=== PATIENT | female | born 1955 | race Caucasian/White ===

== ENCOUNTER 2016-09-15 10:18 | Inpatient (IN) | payer OTHER ==
[2016-09-11 16:30] VITALS: BMI 56.8
--- NOTE | 2016-09-15 10:01 | P.GSHP ---
History of Present Illness H&P Date: 09/15/16 Chief Complaint: Thyroid mass CHIEF COMPLAINT: Thyroid mass, left. HISTORY OF PRESENT ILLNESS: The patient is a 61-year-old female presents with history of left thyroid mass over 3 cm. This has been observed by her human resources consultant for several years however now she presents with problems with swallowing as well as troubles breathing. She presents for surgical intervention. PAST MEDICAL HISTORY: Please see list PAST SURGICAL HISTORY: Please see list MEDICATIONS: Please see list ALLERGIES: Denies. SOCIAL HISTORY: No illicit drug use or recent tobacco use FAMILY HISTORY: Pertinent for gallbladder disease REVIEW OF ORGAN SYSTEMS: CONSTITUTIONAL: No reports of fevers or chills. HEENT: Denies any troubles with the vision or hearing. ENDOCRINE: Has thyroid nodules. Has diabetes. RESPIRATORY: No recent pneumonias. CARDIOVASCULAR: Denies chest pain or palpitations GI: No blood in stools or constipation. MUSCULOSKELETAL: Has occasional joint pain including back pain. NEURO: No seizure disorders or headaches. No recent stroke. PSYCH: No depression or suicidal ideation. HEMATOLOGIC: No personal or family history of DVTs or pulmonary emboli. PHYSICAL EXAM: VITAL SIGNS: Afebrile vital signs stable GENERAL: Well-developed pleasant in no acute distress. HEENT: No scleral icterus. Extraocular movements grossly intact. Moist buccal mucosa. NECK: Supple with nodularity along left neck. CHEST: Unlabored respirations. Equal bilateral excursions. CARDIOVASCULAR: Regular rate regular rhythm rhythm. Distal 2+ pulses. ABDOMEN: Soft, nondistended. Tender along the epigastrium and right upper quadrant. MUSCULOSKELETAL: No clubbing, cyanosis, or edema. NEURO: Cranial nerves II to XII within normal limits. No focal or lateralizing signs. PSYCH: Alert and oriented to person, place and time. STUDIES: CT of the neck confirms a left thyroid mass between 3.5-4 cm. ASSESSMENT: 1. Thyroid mass 3 cm PLAN: 1. Recommend proceeding with a left thyroid lobectomy with possible total thyroidectomy for high risk for cancer. 2. Inpatient hospitalization and advise with multiple comorbidities. 3. DVT prophylaxis. 4. Antibiotic prophylaxis. Past Medical History Past Medical History: Diabetes Mellitus, GERD/Reflux, Hyperlipidemia, Hypertension, Thyroid Disorder Additional Past Medical History / Comment(s): DYSPHAGIA, THYROID NODULE History of Any Multi-Drug Resistant Organisms: None Reported Past Surgical History: Adenoidectomy, Cholecystectomy, Tonsillectomy, Tubal Ligation Additional Past Surgical History / Comment(s): COLONOSCOPY/EGD, RT KIDNEY REMOVED, BREAST BX,. D & C Past Anesthesia/Blood Transfusion Reactions: Motion Sickness, Postoperative Nausea & Vomiting (PONV) Smoking Status: Former smoker - Past Family History Father Family Medical History: Cancer Additional Family Medical History / Comment(s): LUNG Mother Family Medical History: Cancer Additional Family Medical History / Comment(s): BREAST Sister(s) Family Medical History: Cancer Additional Family Medical History / Comment(s): 2 SISTER HAD BREAST CANCER Medications and Allergies Home Medications Medication Instructions Recorded Confirmed Type Aspirin EC [Ecotrin Low Dose] 81 mg PO DAILY 03/10/16 09/11/16 History Atorvastatin [Lipitor] 80 mg PO DAILY 03/10/16 09/11/16 History Cetirizine HCl [Zyrtec] 10 mg PO DAILY 03/10/16 09/11/16 History INSULIN LISPRO (HumaLOG) [humaLOG] 15 unit INJ TID-W/MEALS 03/10/16 09/11/16 History Insulin Glargine [Lantus] 56 unit INJ HS 03/10/16 09/11/16 History Irbesartan/Hydrochlorothiazide 1 each PO DAILY 03/10/16 09/11/16 History [Avalide 300-12.5 mg Tablet] Liraglutide [Victoza 2-Nicola] 1.8 mg SQ DAILY 03/10/16 09/11/16 History Metoprolol Tartrate [Lopressor] 50 mg PO BID 03/10/16 09/11/16 History Omeprazole [PriLOSEC] 20 mg PO AC-BID 03/10/16 09/11/16 History Phentermine/Topiramate [Qsymia 7.5 1 day PO DAILY 03/10/16 09/11/16 History mg-46 mg Capsule] amLODIPine [Norvasc] 10 mg PO QAM 03/10/16 09/11/16 History buPROPion HCL [Wellbutrin XL] 300 mg PO DAILY 03/10/16 09/11/16 History Albuterol Nebulized [Ventolin 2.5 mg INHALATION Q4H PRN 09/11/16 09/11/16 History Nebulized] Fluticasone Nasal [place] [Flonase 2 spr EA NOSTRIL DAILY PRN 09/11/16 09/11/16 History Nasal [place]] Meclizine [Antivert] 25 mg PO DAILY PRN 09/11/16 09/11/16 History Allergies Allergy/AdvReac Type Severity Reaction Status Date / Time prednisone Allergy Rash/Hives Verified 09/11/16 16:23
[~2016-09-15 10:18] MED LIST: ACETAMINOPHEN IV (For NPO) 1,000 MG in EMPTY BAG 1 BAG IVPB ONE; DEXAMETHASONE SOD PHOSPHATE 10 MG/ML 1 ML VIAL IV ONE; HEPARIN SODIUM,PORCINE 5,000 UNIT/ML 1 ML VIAL SQ ONE; HYDROmorphone 1 MG/ML 1 ML SYRINGE IVP PRN; LACTATED RINGERS 1,000 ML IV SCH; LIDOCAINE 1% 20 ML VIAL (10MG/ML) FOR IV START INTRADERMA PRN; ONDANSETRON 4 MG/2 ML VIAL IVP ONE; Pre Op ABX Message 1 EACH MISC MISCELLANE ONE; SCOPOLAMINE 1.5MG/72HR PATCH TRANSDERM ONE; ceFAZolin 2 GM in SODIUM CHLORIDE 0.9% 100 ML IVPB ONE
[2016-09-15 11:18] LABS: Glucose,Whole Blood 144 mg/dL (75-99)
[2016-09-15] MEDS ORDERED: BUPIVACAIN-EPI 0.25%-1:200,000 30 ML VIAL SQ ONE ×2 (11:55→16:52)
[2016-09-15] MEDS ORDERED: ONDANSETRON 4 MG/2 ML VIAL ONE (11:56)
[2016-09-15] MEDS ORDERED: PROPOFOL 10 MG/ML 20 ML VIAL IV ONE (11:56)
[2016-09-15] MEDS ORDERED: SUCCINYLCHOLINE CHLORIDE VIAL 200 MG/10 ML VIAL IV ONE (11:56)
[2016-09-15] MEDS ORDERED: LIDOCAINE 1% INJ 10MG/ML (20 ML MDV) ONE (11:56)
[2016-09-15] MEDS ORDERED: HYDROmorphone (PF) 1 MG/ML ONE (11:56)
[2016-09-15] MEDS ORDERED: MIDAZOLAM 2 MG/2 ML VIAL ONE (11:56)
[2016-09-15] MEDS ORDERED: ePHEDrine 50 MG/ML 1 ML AMP ONE (11:56)
[2016-09-15] MEDS ORDERED: fentaNYL (PF) 50 MCG/ML 2 ML AMP ONE (11:56)
[2016-09-15] MEDS ORDERED: PHENYLEPHRINE-0.9% NACL SYG 1 MG/10 ML SYRINGE ONE (11:56)
[2016-09-15] MEDS ORDERED: LACTATED RINGERS 1,000 ML IV ONE ×2 (16:10)
[2016-09-15 16:17] LABS: Glucose,Whole Blood 167 mg/dL (75-99)
[2016-09-15] MEDS ORDERED: ONDANSETRON 4 MG/2 ML VIAL IVP PRN (17:14)
[2016-09-15] MEDS ORDERED: traMADol 50 MG TAB PO PRN (17:14)
[2016-09-15] MEDS ORDERED: NALOXONE 0.4 MG/ML 1 ML VIAL IV PRN (17:14)
[2016-09-15] MEDS ORDERED: MECLIZINE 25 MG TAB PO PRN (17:16)
[2016-09-15] MEDS ORDERED: FLUTICASONE 50MCG/SPRAY NASAL 16GM EA NOSTRIL PRN (17:16)
--- NOTE | 2016-09-15 17:21 | P.OP ---
Date of Procedure: 09/15/16 Preoperative Diagnosis: Left thyroid nodule, 4 cm; dysphagia secondary to thyroid nodule, dyspnea secondary to thyroid nodule Postoperative Diagnosis: Same Procedure(s) Performed: Total thyroidectomy without neck dissection Implants: Anesthesia: GETA, local (30) Surgeon: Qian Murray Technical Data Analyst #1: Karen Francis Estimated Blood Loss (ml): 100 Pathology: other (Left thyroid gland, isthmus, right thyroid gland) Condition: stable Disposition: floor Indications for Procedure: Operative Findings: No palpable adenopathy along the bilateral neck, large 3-1/2-4 cm inferior lobe thyroid nodule palpated, severe scarring identified along the right thyroid gland, neurostimulator used throughout the case confirming identification of recurrent laryngeal nerve along both sides was free from harm during the procedure. Parathyroid glands identified and spared during procedure. Neck incision of 9 cm secondary to short and very thick neck with limited mobility. Complex of case increase secondary to patient's BMI over 50+. Description of Procedure:
[2016-09-15 17:36] LABS: Glucose,Whole Blood 206 mg/dL (75-99)
[2016-09-15] MEDS ORDERED: RACEPINEPHRINE 2.25% NEB 0.5 ML NEBU INHALATION ONE (17:59)
[2016-09-15] MEDS ORDERED: INSULIN LISPRO (humaLOG) 300 UNIT/3 ML VIAL SQ ONE (17:59)
[2016-09-15] MEDS ORDERED: ACETAMINOPHEN IV (For NPO) 1,000 MG in EMPTY BAG 1 BAG IVPB ONE (18:00)
[2016-09-15] MEDS: SODIUM CHLORIDE 0.9% 1,000 ML IV SCH (18:49)
[2016-09-15 18:56] LABS: Calcium 8.8 mg/dL (8.4-10.2); Potassium 4.6 mmol/L (3.5-5.1)
[2016-09-15] MEDS: INSULIN LISPRO (humaLOG) 300 UNIT/3 ML VIAL SQ SCH ×2 (19:56→22:52)
[2016-09-15] MEDS: PANTOPRAZOLE 40 MG TABLET PO SCH (19:57)
[2016-09-15] MEDS: ceFAZolin 2 GM in SODIUM CHLORIDE 0.9% 100 ML IVPB SCH (20:28)
[2016-09-15] MEDS: METOPROLOL TARTRATE 50 MG TAB PO SCH (20:30)
[2016-09-15] MEDS: HEPARIN SODIUM,PORCINE 5,000 UNIT/ML 1 ML VIAL SQ SCH (20:30)
[2016-09-15 21:11] LABS: Hemoglobin A1C 7.9 % (4.2-6.1)
[2016-09-15] MEDS: HYDROcodone/APAP 5-325MG 1 EACH TAB PO PRN (22:46)
[2016-09-15 22:53] LABS: Glucose,Whole Blood 193 mg/dL (75-99)
[2016-09-16] MEDS: ceFAZolin 2 GM in SODIUM CHLORIDE 0.9% 100 ML IVPB SCH (03:29)
[2016-09-16] MEDS: SODIUM CHLORIDE 0.9% 1,000 ML IV SCH ×3 (03:31→23:18)
[2016-09-16 06:22] LABS: Glucose,Whole Blood 158 mg/dL (75-99)
[2016-09-16] MEDS: PANTOPRAZOLE 40 MG TABLET PO SCH ×2 (06:23→17:49)
[2016-09-16] MEDS: INSULIN LISPRO (humaLOG) 300 UNIT/3 ML VIAL SQ SCH ×4 (06:24→23:10)
[2016-09-16 07:04] LABS: Anion Gap 10 mmol/L; Blood Urea Nitrogen 21 mg/dL (7-17); Calcium 7.8 mg/dL (8.4-10.2); Carbon Dioxide 24 mmol/L (22-30); Chloride 105 mmol/L (98-107); Glucose 173 mg/dL (74-99); Non-African American GFR(MDRD) 53 (>60 ml/min/1.73 sqM); Potassium 4.6 mmol/L (3.5-5.1); Sodium 139 mmol/L (137-145)
--- NOTE | 2016-09-16 08:00 | P.PN ---
Progress Note - Text Patient seen and evaluated. She is comfortable. She denies any moderate neck pain. Serosanguineous drainage noted along dressing. Patient was asked to recite vowels A, E, O, U without any voice hoarseness identified. Calcium levels including parathyroid and thyroid levels being obtained. Recommend inpatient hospitalization.
[2016-09-16] MEDS: CALCIUM CARB-VIT D 500MG-200UN 1 EACH TAB PO SCH ×2 (08:12→17:46)
[2016-09-16] MEDS: buPROPion XL 300 MG TAB.ER.24H PO SCH (08:57)
[2016-09-16] MEDS: ASPIRIN 81 MG CHEW PO SCH (08:57)
[2016-09-16] MEDS: amLODIPine 10 MG TAB PO SCH (08:57)
[2016-09-16] MEDS: LORATADINE 10 MG TAB PO SCH (08:58)
[2016-09-16] MEDS: HEPARIN SODIUM,PORCINE 5,000 UNIT/ML 1 ML VIAL SQ SCH ×2 (08:58→20:41)
[2016-09-16] MEDS: HYDROCHLOROTHIAZIDE 12.5 MG CAP PO SCH (08:58)
[2016-09-16] MEDS: LOSARTAN 50 MG TAB PO SCH (08:59)
[2016-09-16] MEDS: METOPROLOL TARTRATE 50 MG TAB PO SCH ×2 (09:00→20:41)
[2016-09-16 11:49] LABS: Glucose,Whole Blood 186 mg/dL (75-99)
[2016-09-16 12:07] LABS: Ionized Calcium 4.5 mg/dL (4.5-5.3)
[2016-09-16 12:16] LABS: Calcium 7.8 mg/dL (8.4-10.2); Magnesium 1.9 mg/dL (1.6-2.3); Phosphorous 4.1 mg/dL (2.5-4.5)
[2016-09-16] MEDS: MAGNESIUM SULFATE-D5W PMX 1 GM in DEXTROSE/WATER 1 100ML.BAG IVPB SCH ×2 (14:18→15:30)
--- NOTE | 2016-09-16 15:23 | P.PN ---
Subjective Principal diagnosis: Thyroid mass Patient is a 61-year-old female who underwent a total thyroidectomy secondary to her growing 3.5 cm to 4 cm mass along the left thyroid gland. She also reported dyspneic symptoms including dysphagia and trouble swallowing from the thyroid mass. She underwent a total thyroidectomy and has normal caliber voice. She's tolerating diet. She is using her septic parameters which is causing additional coughing as result she has more bleeding from her neck. Otherwise she is comfortable. No reports of numbness around the lips or fingertips. Objective - Vital Signs Vital signs: Vital Signs Temp 97.6 F 09/16/16 07:50 Pulse 68 09/16/16 08:10 Resp 16 09/16/16 07:50 BP 130/78 09/16/16 07:50 Pulse Ox 95 09/16/16 07:50 Intake & Output 09/15/16 09/16/16 09/16/16 18:59 06:59 18:59 Intake Total 3200 480 Output Total 700 2200 875 Balance 2500 -2200 -395 Weight 150.139 kg Intake: IV 3200 Oral 480 Output: Urine 600 2200 875 Uretheral ([place]) 1400 Stool 0 Estimated Blood Loss 100 Other: Voiding Method Indwelling Catheter Toilet # Voids 1 # Bowel Movements 0 - Exam GENERAL: Well developed and in no acute distress. Pleasant. HEENT: No sclera icterus. Extraocular movements grossly intact. Moist buccal mucosa. Head is atraumatic, normocephalic. Hears conversational speech. No nasal drainage. NECK: Dressing along the neck was soaked with serosanguineous drainage. No cellulitis. [place] drain intact. Dressing was changed at bedside. CHEST: Non-labored respirations and equal bilateral excursions. CARDIOVASCULAR: Regular rate and rhythm. Palpable 2+ radial pulses. ABDOMEN: Soft, nontender. Nondistended. MUSCULOSKELETAL: No clubbing, cyanosis or edema. NEUROLOGIC: No focal or lateralizing signs. PSYCH: Appropriate affect. Alert and oriented to person, place and time. - Labs CBC & Chem 7: 09/16/16 06:19 Labs: Abnormal Lab Results - Last 24 Hours (Table) 09/15/16 09/15/16 09/15/16 Range/Units 16:15 17:30 18:25 Carbon Dioxide (22-30) mmol/L BUN (7-17) mg/dL Creatinine (0.52-1.04) mg/dL Glucose (74-99) mg/dL POC Glucose (mg/dL) 167 H 206 H (75-99) mg/dL Hemoglobin A1c 7.9 H (4.2-6.1) % Calcium (8.4-10.2) mg/dL Albumin (3.5-5.0) g/dL 09/15/16 09/15/16 09/16/16 Range/Units 18:25 22:51 06:19 Carbon Dioxide 21 L (22-30) mmol/L BUN 23 H 21 H (7-17) mg/dL Creatinine 1.13 H 1.06 H (0.52-1.04) mg/dL Glucose 225 H 173 H (74-99) mg/dL POC Glucose (mg/dL) 193 H (75-99) mg/dL Hemoglobin A1c (4.2-6.1) % Calcium 7.8 L (8.4-10.2) mg/dL Albumin (3.5-5.0) g/dL 09/16/16 09/16/16 09/16/16 Range/Units 06:21 11:45 11:47 Carbon Dioxide (22-30) mmol/L BUN (7-17) mg/dL Creatinine (0.52-1.04) mg/dL Glucose (74-99) mg/dL POC Glucose (mg/dL) 158 H 186 H (75-99) mg/dL Hemoglobin A1c (4.2-6.1) % Calcium 7.8 L (8.4-10.2) mg/dL Albumin 3.1 L (3.5-5.0) g/dL Assessment and Plan (1) Thyroid mass of unclear etiology Status: Acute (2) Morbid obesity with BMI of 50.0-59.9, adult Status: Acute (3) Sleep apnea Status: Acute (4) Chronic kidney disease, stage II (mild) Status: Acute (5) Diabetic nephropathy Status: Acute (6) Diabetes type 2, controlled Status: Acute (7) Hypertensive heart disease Status: Acute (8) History of pneumonia Status: Acute Plan: 1. Her neck dressing was changed with moderate sanguinous drainage following moderate coughing earlier today. Recommend continued hospitalization as to ensure complete hemostasis and hemoglobin stability. 2. She has pre-existing pneumonia for which she was hospitalized in and out for 3 months with the last 4 months. Continue with incentive spirometry. 3. Ionized calcium consistent with no evidence of hypocalcemia. Parathyroid hormone level also sent out and pending. 4. Recommend treatment for low magnesium as low magnesium potentiates hypocalcemia. 5. She has been started on calcium with vitamin D at least 2-3 times daily. 6. Thyroid levels within normal limits however recommend consultation and follow-up outpatient with construction services technician. Her sees Dr. Luna construction services technician for which would be appropriate. 7. She has history of morbid obesity with BMI of over 50. Prior to her thyroidectomy, she was being evaluated for the bariatric program which may be reinvestigated upon complete recovery of her recent surgery.
[2016-09-16] MEDS: ALBUTEROL NEBULIZED 2.5 MG/3 ML INHALATION PRN (16:55)
[2016-09-16 17:46] LABS: Glucose,Whole Blood 135 mg/dL (75-99)
[2016-09-16] MEDS: HYDROcodone/APAP 5-325MG 1 EACH TAB PO PRN ×2 (18:25→23:12)
[2016-09-16 23:10] LABS: Glucose,Whole Blood 175 mg/dL (75-99)
[2016-09-17 01:36] LABS: Glucose,Whole Blood 142 mg/dL (75-99)
[2016-09-17] MEDS: HYDROcodone/APAP 5-325MG 1 EACH TAB PO PRN ×3 (02:55→14:42)
[2016-09-17] MEDS ORDERED: CALCIUM GLUCONATE 1,000 MG in SODIUM CHLORIDE 0.9% 100 ML IVPB ONE ×2 (03:00→11:00)
[2016-09-17 06:44] LABS: Glucose,Whole Blood 120 mg/dL (75-99)
[2016-09-17] MEDS: INSULIN LISPRO (humaLOG) 300 UNIT/3 ML VIAL SQ SCH ×2 (06:44→12:21)
[2016-09-17] MEDS: PANTOPRAZOLE 40 MG TABLET PO SCH (06:45)
[2016-09-17] MEDS: CALCIUM CARB-VIT D 500MG-200UN 1 EACH TAB PO SCH ×2 (07:49→16:02)
[2016-09-17 07:51] VITALS: TEMP 97.7
[2016-09-17 08:13] LABS: Ionized Calcium 4.2 mg/dL (4.5-5.3)
[2016-09-17 08:16] LABS: Calcium 7.6 mg/dL (8.4-10.2); Magnesium 1.8 mg/dL (1.6-2.3)
[2016-09-17] MEDS: ALBUTEROL NEBULIZED 2.5 MG/3 ML INHALATION PRN ×2 (08:59→15:43)
[2016-09-17] MEDS: HEPARIN SODIUM,PORCINE 5,000 UNIT/ML 1 ML VIAL SQ SCH (09:09)
[2016-09-17] MEDS: ASPIRIN 81 MG CHEW PO SCH (09:09)
[2016-09-17] MEDS: buPROPion XL 300 MG TAB.ER.24H PO SCH (09:09)
[2016-09-17] MEDS: amLODIPine 10 MG TAB PO SCH (09:09)
[2016-09-17] MEDS: LORATADINE 10 MG TAB PO SCH (09:10)
[2016-09-17] MEDS: LOSARTAN 50 MG TAB PO SCH (09:10)
[2016-09-17] MEDS: HYDROCHLOROTHIAZIDE 12.5 MG CAP PO SCH (09:10)
[2016-09-17] MEDS: METOPROLOL TARTRATE 50 MG TAB PO SCH (09:10)
[2016-09-17] MEDS ORDERED: CALCITRIOL 0.25 MCG CAP PO SCH (10:15)
[2016-09-17] MEDS: MAGNESIUM SULFATE-D5W PMX 1 GM in DEXTROSE/WATER 1 100ML.BAG IVPB SCH ×3 (10:44→13:09)
[2016-09-17 12:06] VITALS: BP 129/78; RESP 18
[2016-09-17 12:20] LABS: Glucose,Whole Blood 170 mg/dL (75-99)
[2016-09-17 15:20] LABS: Calcium 7.6 mg/dL (8.4-10.2); Magnesium 2.4 mg/dL (1.6-2.3)
[2016-09-17 15:53] VITALS: PULSE 68
--- NOTE | 2016-09-17 20:48 | P.PN ---
Subjective Principal diagnosis: Thyroid mass Patient is a 61-year-old female who underwent a total thyroidectomy secondary to her growing 3.5 cm to 4 cm mass along the left thyroid gland. She reported dyspnea including dysphagia secondary to a thyroid nodule hence thyroidectomy. Postoperatively, she's been tolerating diet. She reports overnight developing acute numbness around the lips. She was treated with IV calcium. This morning , she reports improvement of her symptoms. No reports of changing caliber of voice. She denied any carpopedal spasms. Objective - Vital Signs Vital signs: Vital Signs Temp 97.7 F 09/17/16 07:51 Pulse 68 09/17/16 09:10 Resp 16 09/17/16 07:51 BP 119/61 09/17/16 07:51 Pulse Ox 98 09/17/16 07:57 Intake & Output 09/16/16 09/17/16 09/17/16 18:59 06:59 18:59 Intake Total 480 Output Total 875 Balance -395 Weight 150.139 kg Intake: Oral 480 Output: Urine 875 Other: Voiding Method Toilet Toilet # Voids 1 1 1 - Exam GENERAL: Well developed and in no acute distress. Pleasant. HEENT: No sclera icterus. Extraocular movements grossly intact. Moist buccal mucosa. Head is atraumatic, normocephalic. Hears conversational speech. No nasal drainage. NECK: Dressing along the neck minimal serosanguineous drainage. No cellulitis. [place] drain was removed. Dressing was changed at bedside. No hoarseness. CHEST: Non-labored respirations and equal bilateral excursions. CARDIOVASCULAR: Regular rate and rhythm. Palpable 2+ radial pulses. ABDOMEN: Soft, nontender. Nondistended. MUSCULOSKELETAL: No clubbing, cyanosis or edema. NEUROLOGIC: No focal or lateralizing signs. PSYCH: Appropriate affect. Alert and oriented to person, place and time. - Labs CBC & Chem 7: 09/16/16 06:19 Labs: Abnormal Lab Results - Last 24 Hours (Table) 09/16/16 09/16/16 09/16/16 Range/Units 11:45 11:47 17:38 POC Glucose (mg/dL) 186 H 135 H (75-99) mg/dL Calcium 7.8 L (8.4-10.2) mg/dL Ionized Calcium Cathy (4.5-5.3) mg/dL Albumin 3.1 L (3.5-5.0) g/dL 09/16/16 09/17/16 09/17/16 Range/Units 23:08 01:34 02:02 POC Glucose (mg/dL) 175 H 142 H (75-99) mg/dL Calcium 7.7 L (8.4-10.2) mg/dL Ionized Calcium Cathy (4.5-5.3) mg/dL Albumin (3.5-5.0) g/dL 09/17/16 09/17/16 Range/Units 06:43 07:31 POC Glucose (mg/dL) 120 H (75-99) mg/dL Calcium 7.6 L (8.4-10.2) mg/dL Ionized Calcium Cathy 4.2 L (4.5-5.3) mg/dL Albumin (3.5-5.0) g/dL Assessment and Plan (1) Thyroid mass of unclear etiology Status: Acute (2) Morbid obesity with BMI of 50.0-59.9, adult Status: Acute (3) Sleep apnea Status: Acute (4) Chronic kidney disease, stage II (mild) Status: Acute (5) Diabetic nephropathy Status: Acute (6) Diabetes type 2, controlled Status: Acute (7) Hypertensive heart disease Status: Acute (8) History of pneumonia Status: Acute (9) Hypocalcemia Status: Acute (10) Hypomagnesemia Status: Acute Plan: 1. She has an expected outcome of hypocalcemia following thyroid surgery. Repeat calcium levels were stable. 2. She has been started on calcitriol. 3. Recommend correction of hypo-Magnesia which potentiates hypocalcemia. 4. [place] drain was discontinued at bedside with New dressing placed along the neck. 5. Risk factors of severe hypocalcemia including perioral numbness, carpopedal spasms were described as well as muscle soreness. She and her family were described treatment including immediate calcium supplement and notifying M.D. 6. Patient may be discharged home with immediate follow-up in the office in 2- 3 days.
--- NOTE | 2016-09-17 20:52 | P.DS ---
Providers Date of admission: 09/15/16 17:07 Expected date of discharge: 09/17/16 Attending physician: Qian Murray Primary care physician: Stated None - Discharge Diagnosis(es) (1) Thyroid mass of unclear etiology Status: Acute (2) Morbid obesity with BMI of 50.0-59.9, adult Status: Acute (3) Sleep apnea Status: Acute (4) Chronic kidney disease, stage II (mild) Status: Acute (5) Diabetic nephropathy Status: Acute (6) Diabetes type 2, controlled Status: Acute (7) Hypertensive heart disease Status: Acute (8) History of pneumonia Status: Acute (9) Hypocalcemia Status: Acute (10) Hypomagnesemia Status: Acute Hospital Course: The patient is a 61-year-old female who presented for thyroidectomy following an enlarged left thyroid lobe almost 4 cm in size. She reported developing dyspnea including dysphagia secondary to the size of the mass. Postoperatively , her voice caliber was intact. Her calcium levels were followed as an expected outcome following total thyroidectomy includes hypocalcemia. She was treated accordingly for low magnesium and low calcium levels. She was started on calcium supplement including vitamin D supplementation. Prior to discharge, she was stable. Discharge instructions including symptoms of hypocalcemia were described in detail. The [place] drain was discontinued. Patient will follow-up in the office within 2-3 days. Procedures: Total thyroidectomy with neuro monitor stimulator Patient Condition at Discharge: Stable Plan - Discharge Summary New Discharge Prescriptions: New Calcium Carbonate/Vitamin D3 [Calcium 500-Vit D3 600 Tablet] 1 each PO TID # 90 tablet Hydrocodone/Acetaminophen [Teague 5-325] 1 - 2 each PO Q6HR PRN #10 tab PRN Reason: Pain Levothyroxine Sodium [Synthroid] 100 mcg PO DAILY #30 tab Calcitriol [Rocaltrol] 0.25 mcg PO DAILY #30 cap Calcium Carb-Vit D 500Mg-200Un [Oscal 500+D] 2 each PO BID-W/MEALS tab Continue Liraglutide [Victoza 2-Nicola] 1.8 mg SQ DAILY Omeprazole [PriLOSEC] 20 mg PO AC-BID Metoprolol Tartrate [Lopressor] 50 mg PO BID Cetirizine HCl [Zyrtec] 10 mg PO DAILY buPROPion HCL [Wellbutrin XL] 300 mg PO DAILY amLODIPine [Norvasc] 10 mg PO QAM Atorvastatin [Lipitor] 80 mg PO DAILY Phentermine/Topiramate [Qsymia 7.5 mg-46 mg Capsule] 1 cap PO DAILY Irbesartan/Hydrochlorothiazide [Avalide 300-12.5 mg Tablet] 1 tab PO DAILY Insulin Glargine [Lantus] 56 unit SQ HS INSULIN LISPRO (HumaLOG) [humaLOG] 15 unit SQ TID-W/MEALS Aspirin EC [Ecotrin Low Dose] 81 mg PO DAILY Fluticasone Nasal [place] [Flonase Nasal [place]] 2 spr EA NOSTRIL DAILY PRN PRN Reason: Congestion Albuterol Nebulized [Ventolin Nebulized] 2.5 mg INHALATION RT-Q4H PRN PRN Reason: Shortness Of Breath Meclizine [Antivert] 25 mg PO DAILY PRN PRN Reason: Vertigo Discharge Medication List Aspirin EC [Ecotrin Low Dose] 81 mg PO DAILY 03/10/16 [History] Atorvastatin [Lipitor] 80 mg PO DAILY 03/10/16 [History] Cetirizine HCl [Zyrtec] 10 mg PO DAILY 03/10/16 [History] INSULIN LISPRO (HumaLOG) [humaLOG] 15 unit SQ TID-W/MEALS 03/10/16 [History] Insulin Glargine [Lantus] 56 unit SQ HS 03/10/16 [History] Irbesartan/Hydrochlorothiazide [Avalide 300-12.5 mg Tablet] 1 tab PO DAILY 03/10 [History] Liraglutide [Victoza 2-Nicola] 1.8 mg SQ DAILY 03/10/16 [History] Metoprolol Tartrate [Lopressor] 50 mg PO BID 03/10/16 [History] Omeprazole [PriLOSEC] 20 mg PO AC-BID 03/10/16 [History] Phentermine/Topiramate [Qsymia 7.5 mg-46 mg Capsule] 1 cap PO DAILY 03/10/16 [ History] amLODIPine [Norvasc] 10 mg PO QAM 03/10/16 [History] buPROPion HCL [Wellbutrin XL] 300 mg PO DAILY 03/10/16 [History] Albuterol Nebulized [Ventolin Nebulized] 2.5 mg INHALATION RT-Q4H PRN 09/11/16 [ History] Fluticasone Nasal [place] [Flonase Nasal [place]] 2 spr EA NOSTRIL DAILY PRN [History] Meclizine [Antivert] 25 mg PO DAILY PRN 09/11/16 [History] Calcium Carbonate/Vitamin D3 [Calcium 500-Vit D3 600 Tablet] 1 each PO TID #90 tablet 09/16/16 [Rx] Hydrocodone/Acetaminophen [[place] 5-325] 1 - 2 each PO Q6HR PRN #10 tab 09/16/16 [Rx] Levothyroxine Sodium [Synthroid] 100 mcg PO DAILY #30 tab 09/16/16 [Rx] Calcitriol [Rocaltrol] 0.25 mcg PO DAILY #30 cap 09/17/16 [Rx] Calcium Carb-Vit D 500Mg-200Un [Oscal 500+D] 2 each PO BID-W/MEALS tab [Rx] Follow up Appointment(s)/Referral(s): Qian Murray MD [STAFF PHYSICIAN] - 09/19/16 (Call to confirm time.) Azucena Luna MD [STAFF PHYSICIAN] - 1 Week (History of thyroidectomy for left thyroid mass between 3.6 cm to 4 cm. Call to make an appointment with Dr Luna for one week.) Patient Instructions/Handouts: Calcium/Vitamin D Supplement (By mouth), Total Thyroidectomy (DC), Hypocalcemia (DC) Activity/Diet/Wound Care/Special Instructions: Diet as tolerated. Please keep dressing on until discontinued by surgeon in the office. No heavy lifting, no driving, no bending over. Call Dr Murray if you develop a fever, chills, difficulty in breathing, numbness or tingling or twitching of face or hands. Take you calcium supplements as ordered. Return on Monday, September 19, [address] Murray for your follow up appointment. Monitor blood glucose levels and administer your insulin as prior to surgery. Discharge Disposition: HOME SELF-CARE
--- NOTE | 2016-10-02 12:52 | P.OP ---
Date of Procedure: 09/15/16 Preoperative Diagnosis: Postoperative Diagnosis: Procedure(s) Performed: Implants: Indications for Procedure: Operative Findings: Description of Procedure: Date of Procedure: 09/15/16 SURGEON: DION GARCIA MD RAMPMAN: Dr. Karen Francis PREOPERATIVE DIAGNOSES: 1. Left thyroid nodule, 4 cm. 2. History of dysphagia secondary to thyroid compression. 3. Dyspnea from thyroid compression. 4. Morbid obesity due to excess calories. 5. Body mass index of 56.8. 6. Diabetes type 2, insulin-dependent. 7. Asthma. 8. Hypertensive heart disease with cardiomyopathy. 9. Renal insufficiency. 10. Hyperlipidemia. 11. Personal history of right nephrectomy. 12. Gastroesophageal reflux disease. 13. Obstructive sleep apnea. 14. Vertigo. 15. History of depression. 16. Euthyroid state. POSTOPERATIVE DIAGNOSES: 1. Left thyroid nodule, 4 cm. 2. History of dysphagia secondary to thyroid compression. 3. Dyspnea from thyroid compression. 4. Morbid obesity due to excess calories. 5. Body mass index of 56.8. 6. Diabetes type 2, insulin-dependent. 7. Asthma. 8. Hypertensive heart disease with cardiomyopathy. 9. Renal insufficiency. 10. Hyperlipidemia. 11. Personal history of right nephrectomy. 12. Gastroesophageal reflux disease. 13. Obstructive sleep apnea. 14. Vertigo. 15. History of depression. 16. Euthyroid state. OPERATION: Total thyroidectomy with isthmusectomy without neck dissection ANESTHESIA: General with local anesthetic. ESTIMATED BLOOD LOSS: 100 mL. SPECIMENS REMOVED: Left thyroid gland, isthmus, right thyroid gland COMPLICATIONS: None. SPECIAL EQUIPMENT: Neuromuscular stimulator for identification of recurrent laryngeal nerve. OPERATIVE FINDINGS: 1. No palpable adenopathy along the bilateral neck. 2. Large 3.5 to 4 cm inferior lobe thyroid nodule palpated. 3. Severe scarring identified along the right thyroid gland. 4. Neurostimulator used throughout the case confirming identification of recurrent laryngeal nerve along both sides and free from harm during the procedure. 5. Parathyroid glands identified and spared during procedure from inferior pole thyroid gland. 6. Neck incision of 9 cm secondary to short and very thick neck with limited mobility. 7. Complex of case increase secondary to patient's BMI over 50+. INDICATIONS: The patient is a 61-year-old female who reports several year history of thyroid nodule. She reports that her thyroid gland has grown in moderate size which is causing both dysphagia including dyspnea from thyroid compression. She had been followed closely by an nuclear fuels research engineer. Given her worsening symptoms, thyroid lobectomy versus total thyroidectomy was described. As risk for neoplasm was high, total thyroidectomy was selected. Benefits and risks, including bleeding, infection, need for further surgery, injury to the recurrent laryngeal nerves had been discussed at length. Informed consent was obtained. DESCRIPTION: Patient was brought into the operating room and initially placed in supine position. After general induction, she was repositioned in a beach chair position with the neck slightly hyperextended and stable. A shoulder roll was placed. Neuromuscular stimulator was placed along the patient's skin. The neck, chin, chest and bilateral shoulders were prepped and draped in standard sterile fashion. Prior to incision, a timeout protocol was confirmed with the surgical team regarding the patient's name including procedure to be performed. Preoperative medications was also dispensed. The patient had a moderate size large neck whereby the skin crease was identified approximately 2 fingerbreadths above the sternal notch in appearance. The skin was localized using anesthetic. Transverse incision was made using a #15 blade. The incision was deepened down through the platysma using a needlepoint electro- Bovie cautery. Flaps were raised along the infra-platysmal plane and was developed cephalad above the thyroid cartridge laterally to the sternocleidomastoid muscles and inferiorly to the sternal notch. (Dr. Francis had entered the case for assisting in dissection and resection for total thyroidectomy.) The left thyroid gland was of a moderate sized whereby the sternohyoid, sternothyroid and omohyoid muscles were identified. Initial attention was brought to the right side where moderate scarring was identified. A large median vein along the neck spared from harm. The strap muscles were retracted laterally. The right thyroid was exposed severely scarred. Next, the right thyroid gland was gently displaced toward the midline and the middle thyroid vein was identified and tied using 2-0 silk and divided. The lobe was then retracted inferiorly and medially to expose the superior thyroid artery and vein. The superior thyroid artery and vein was skeletonized and tied using 2-0 silk and divided onto the gland to avoid injury to the superior laryngeal nerve. The right lobe was then retracted medially and the recurrent laryngeal nerve was identified in the tracheoesophageal groove. Neuromuscular stimulator was used also confirm its location. Next, the gland was gently mobilized away from the nerve which had been protected during the dissection. The inferior thyroid artery and vein were then ligated with 2-0 silk and divided. A hand held LigaSure was used to divide accessory vessels. The posterior and inferior parathyroid glands were identified and dissected free from the thyroid gland. As the isthmus was also found, the isthmus was divided and the lobe was freed. The specimen was passed off. Throughout the neck, no palpable lymph nodes were found throughout the cervical chain. In a similar fashion, the left strap muscles were retracted laterally. The gland was reflected medially in an inferior approach to identify the superior pole. The middle thyroid vein was identified and divided using 2-0 silk. The superior thyroid artery and vein were also skeletonized and tied using 2-0 silk and divided onto the gland again to avoid injury to the recurrent laryngeal nerve. As the lobe was retracted medially the recurrent laryngeal nerve was also identified along the tracheoesophageal groove and confirmed using a neuromuscular stimulation. The thyroid gland was then removed from the trachea. Hemostasis had been checked with Fibrillar and hemostatic agents. A 1/4-inch [place] drain was sutured into the space using 2-0 nylon for the skin. The cervical fascia was reapproximated using 3-0 Vicryl in a running fashion. The platysma was also reapproximated using running 3-0 Vicryl stitches. The skin was closed using 4-0 Monocryl in a running subcuticular fashion. Dermabond was placed laterally as to avoid incorporating the [place] drain. Optifoam dressing was placed. At the end of the procedure, needle, sponge, and instrument count had been verified correct by the rn surgical pcu. Please note that prior to closure of the wound, the neck was carefully explored whereby no findings of pathological lymph nodes were found. The patient was taken to the postanesthesia care unit in stable condition. The patient upon awaking was able to phonate and speak without hoarseness of her voice and had maintained her airway.
== END 2016-09-17 16:35 | disposition home or self-care (01) | DRG 626 ==
LOC: OR 10:18 → 6PED 17:07
PROVIDERS: ADMIT Surgery Plastic and Reconstructive Surgery; ATTEND Surgery Plastic and Reconstructive Surgery
PROC: 0GTH0ZZ Resection of Right Thyroid Gland Lobe, Open Approach (ICD-10-PCS; principal; 2016-09-15 11:40)
PROC: 0GTG0ZZ Resection of Left Thyroid Gland Lobe, Open Approach (ICD-10-PCS; principal; 2016-09-15 11:40)
DX: E04.1 Nontoxic single thyroid nodule (principal); I42.9 Cardiomyopathy, unspecified; Z68.43 Body mass index [BMI] 50.0-59.9, adult; E11.21 Type 2 diabetes mellitus with diabetic nephropathy; I13.10 Hypertensive heart and chronic kidney disease without heart failure, with stage 1 through stage 4 chronic kidney disease, or unspecified chronic kidney disease; E83.42 Hypomagnesemia; E83.51 Hypocalcemia; E11.22 Type 2 diabetes mellitus with diabetic chronic kidney disease; E66.01 Morbid (severe) obesity due to excess calories; E78.5 Hyperlipidemia, unspecified; G47.33 Obstructive sleep apnea (adult) (pediatric); J45.909 Unspecified asthma, uncomplicated; K21.9 Gastro-esophageal reflux disease without esophagitis; N18.2 Chronic kidney disease, stage 2 (mild); Z79.4 Long term (current) use of insulin; Z79.899 Other long term (current) drug therapy; Z80.3 Family history of malignant neoplasm of breast; Z87.01 Personal history of pneumonia (recurrent); Z87.891 Personal history of nicotine dependence; Z90.5 Acquired absence of kidney
CPT/HCPCS: 80048; 82040; 82310; 82330; 82652; 83036; 83735; 83970; 84100; 84443; 88307; 94640

== ENCOUNTER 2016-09-18 16:32 | Emergency (ER) | payer OTHER ==
--- NOTE | 2016-09-18 17:34 | ED ---
General Adult HPI - General Source: patient, RN notes reviewed Mode of arrival: wheelchair Limitations: no limitations <Yanick Mobley - Last Filed: 09/18/16 19:04> <Stefano Burden - Last Filed: 09/18/16 19:11> - General Chief complaint: Recheck/Abnormal Lab/Rx Stated complaint: Tingling in lips and face Time Seen by Provider: 09/18/16 16:48 - History of Present Illness Initial comments: 61-year-old female presents emergency Department with chief complaint of numbness and tingling in her face generalize, arms and hands. Patient states that she had a thyroidectomy on Sunday by Dr. Murray. Patient states while in the hospital she exhibited similar symptoms that she has no states is told her was due to low calcium and magnesium. She had this replaced in the hospital and states that she felt that it resolved. Patient developed symptoms again around 2:30 this afternoon. She was instructed to come emergency department to have her levels checked by Dr. Galloway. Patient denies headache, focal weakness, blurred vision, nausea, vomiting. Patient states she does have a history anxiety though she does not feel anxious. Denies chest pain or shortness breath. Patient states she's been taking [id number] supplements for her calcium and magnesium. (Yanick Mobley) - Related Data Home Medications Medication Instructions Recorded Confirmed Aspirin EC [Ecotrin Low Dose] 81 mg PO DAILY 03/10/16 09/18/16 Atorvastatin [Lipitor] 80 mg PO DAILY 03/10/16 09/18/16 Cetirizine HCl [Zyrtec] 10 mg PO DAILY 03/10/16 09/18/16 INSULIN LISPRO (HumaLOG) [humaLOG] 15 unit SQ TID-W/MEALS 03/10/16 09/18/16 Insulin Glargine [Lantus] 56 unit SQ HS 03/10/16 09/18/16 Irbesartan/Hydrochlorothiazide 1 tab PO DAILY 03/10/16 09/18/16 [Avalide 300-12.5 mg Tablet] Liraglutide [Victoza 2-Nicola] 1.8 mg SQ DAILY 03/10/16 09/18/16 Metoprolol Tartrate [Lopressor] 50 mg PO BID 03/10/16 09/18/16 Omeprazole [PriLOSEC] 20 mg PO AC-BID 03/10/16 09/18/16 Phentermine/Topiramate [Qsymia 7.5 1 cap PO DAILY 03/10/16 09/18/16 mg-46 mg Capsule] amLODIPine [Norvasc] 10 mg PO QAM 03/10/16 09/18/16 buPROPion HCL [Wellbutrin XL] 300 mg PO DAILY 03/10/16 09/18/16 Albuterol Nebulized [Ventolin 2.5 mg INHALATION RT-Q4H PRN 09/11/16 09/18/16 Nebulized] Fluticasone Nasal [place] [Flonase 2 spr EA NOSTRIL DAILY PRN 09/11/16 09/18/16 Nasal [place]] Meclizine [Antivert] 25 mg PO DAILY PRN 09/11/16 09/18/16 Calcium Carb-Vit D 500Mg-200Un 2 tab PO BID-W/MEALS 09/18/16 09/18/16 [Oscal 500+D] Calcium Carbonate/Vitamin D3 1 tab PO TID 09/18/16 09/18/16 [Calcium 500-Vit D3 600 Tablet] Hydrocodone/Acetaminophen [[place] 1 - 2 tab PO Q6HR PRN 09/18/16 09/18/16 5-325] Previous Rx's Medication Instructions Recorded Levothyroxine Sodium [Synthroid] 100 mcg PO DAILY #30 tab 09/16/16 Calcitriol [Rocaltrol] 0.25 mcg PO DAILY #30 cap 09/17/16 Allergies Allergy/AdvReac Type Severity Reaction Status Date / Time prednisone Allergy Rash/Hives Verified 09/18/16 17:00 Review of Systems ROS Other: All systems not noted in ROS Statement are negative. <Yanick Mobley - Last Filed: 09/18/16 19:04> ROS Other: All systems not noted in ROS Statement are negative. <Stefano Burden - Last Filed: 09/18/16 19:11> ROS Statement: Those systems with pertinent positive or pertinent negative responses have been documented in the HPI. Past Medical History Past Medical History: Diabetes Mellitus, GERD/Reflux, Hyperlipidemia, Hypertension, Thyroid Disorder Additional Past Medical History / Comment(s): DYSPHAGIA, THYROID NODULE History of Any Multi-Drug Resistant Organisms: None Reported Past Surgical History: Adenoidectomy, Cholecystectomy, Tonsillectomy, Tubal Ligation Additional Past Surgical History / Comment(s): COLONOSCOPY/EGD, RT KIDNEY REMOVED, BREAST BX,. D & C, THYROIDECTOMY Past Anesthesia/Blood Transfusion Reactions: Motion Sickness, Postoperative Nausea & Vomiting (PONV) Past Psychological History: Depression Smoking Status: Former smoker Past Alcohol Use History: None Reported Past Drug Use History: None Reported - Past Family History Father Family Medical History: Cancer Additional Family Medical History / Comment(s): LUNG Mother Family Medical History: Cancer Additional Family Medical History / Comment(s): BREAST Sister(s) Family Medical History: Cancer Additional Family Medical History / Comment(s): 2 SISTER HAD BREAST CANCER <Yanick Mobley - Last Filed: 09/18/16 19:04> General Exam Limitations: no limitations General appearance: alert, in no apparent distress Head exam: Present: atraumatic, normocephalic, normal inspection Eye exam: Present: normal appearance, PERRL, EOMI. Absent: scleral icterus, conjunctival injection, periorbital swelling ENT exam: Present: normal exam, normal oropharynx, mucous membranes moist, TM's normal bilaterally, normal external ear exam Neck exam: Present: tenderness (Mild), full ROM. Absent: normal inspection ( There is a dressing over the anterior surface), meningismus, lymphadenopathy Respiratory exam: Present: normal lung sounds bilaterally. Absent: respiratory distress, wheezes, rales, rhonchi, stridor Cardiovascular Exam: Present: regular rate, normal rhythm, normal heart sounds. Absent: systolic murmur, diastolic murmur, rubs, gallop, clicks Neurological exam: Present: alert, oriented X3, CN II-XII intact, reflexes normal, other (NIH 0 GCS 15). Absent: motor sensory deficit Skin exam: Present: warm, dry, intact, normal color. Absent: rash <Yanick Mobley - Last Filed: 09/18/16 19:04> Course <Yanick Mobley - Last Filed: 09/18/16 19:04> <Stefano Burden - Last Filed: 09/18/16 19:11> Vital Signs 09/18/16 09/18/16 16:40 18:42 Temperature 98.2 F Pulse Rate 70 91 Respiratory 18 20 Rate Blood Pressure 140/73 124/85 O2 Sat by Pulse 93 L 98 Oximetry - Reevaluation(s) Reevaluation #1: 09/18/16 19:11 I did personally do a [id number]-nj-[id number] evaluation the patient did discuss findings with her. I also discussed the case with Dr. Dixon. Dr. Dixon will come to the emergency department to see the patient. (Stefano Burden) Medical Decision Making - Lab Data Result diagrams: 09/18/16 17:25 09/18/16 17:25 <Yanick Mobley - Last Filed: 09/18/16 19:04> - Lab Data Result diagrams: 09/18/16 17:25 09/18/16 17:25 <Stefano Burden - Last Filed: 09/18/16 19:11> - Medical Decision Making Dr burden discussed the case with Dr. Murray. She will be discharged after her IV bag and calcium. Patient will be evaluated by Dr. Murray in the emergency department. (Yanick Mobley) - Lab Data Lab Results 09/18/16 09/18/16 Range/Units 17:25 17:25 WBC 10.7 H (3.8-10.6) k/uL RBC 5.30 (3.80-5.40) m/uL Hgb 15.7 (11.4-16.0) gm/dL Hct 48.8 H (34.0-46.0) % MCV 92.2 (80.0-100.0) fL MCH 29.7 (25.0-35.0) pg MCHC 32.2 (31.0-37.0) g/dL RDW 14.3 (11.5-15.5) % Plt Count 182 (150-450) k/uL Neutrophils % 74 % Lymphocytes % 16 % Monocytes % 4 % Eosinophils % 5 % Basophils % 1 % Neutrophils # 7.9 H (1.3-7.7) k/uL Lymphocytes # 1.7 (1.0-4.8) k/uL Monocytes # 0.5 (0-1.0) k/uL Eosinophils # 0.5 (0-0.7) k/uL Basophils # 0.1 (0-0.2) k/uL Sodium 141 (137-145) mmol/L Potassium 3.7 (3.5-5.1) mmol/L Chloride 102 (98-107) mmol/L Carbon Dioxide 25 (22-30) mmol/L Anion Gap 14 mmol/L BUN 19 H (7-17) mg/dL Creatinine 1.05 H (0.52-1.04) mg/dL Est GFR (MDRD) Af Amer >60 (>60 ml/min/1.73 sqM) Est GFR (MDRD) Non-Af 54 (>60 ml/min/1.73 sqM) Glucose 153 H (74-99) mg/dL Calcium 7.5 L (8.4-10.2) mg/dL Magnesium 1.5 L (1.6-2.3) mg/dL Total Bilirubin 0.6 (0.2-1.3) mg/dL AST 36 (14-36) U/L ALT 38 (9-52) U/L Alkaline Phosphatase 101 (38-126) U/L Total Protein 7.0 (6.3-8.2) g/dL Albumin 3.8 (3.5-5.0) g/dL Disposition Time of Disposition: 19:05 <Yanick Mobley - Last Filed: 09/18/16 19:04> <Stefano Burden - Last Filed: 09/18/16 19:11> Clinical Impression: Hypocalcemia, Hypomagnesemia Disposition: HOME SELF-CARE Condition: Stable Instructions: Hypocalcemia (ED) Additional Instructions: Please return to the Emergency Department if symptoms worsen or any other concerns. Referrals: Stephy Harris MD [Primary Care Provider] - 1-2 days
[2016-09-18 17:36] LABS: Basophils # (A) 0.1 k/uL (0-0.2); Basophils % (A) 1 %; CH 30.5; CHCM 33.2; Eosinophils # (A) 0.5 k/uL (0-0.7); Eosinophils % (A) 5 %; HCT 48.8 % (34.0-46.0); HDW 2.43; HGB 15.7 gm/dL (11.4-16.0); Luc # (Auto) 0.14; Luc % (Auto) 1; Lymphocytes # (A) 1.7 k/uL (1.0-4.8); Lymphocytes % (A) 16 %; MCH 29.7 pg (25.0-35.0); MCHC 32.2 g/dL (31.0-37.0); MCV 92.2 fL (80.0-100.0); Mean Platelet Volume 8.4; Monocytes # (A) 0.5 k/uL (0-1.0); Monocytes % (A) 4 %; Neutrophils # (A) 7.9 k/uL (1.3-7.7); Neutrophils % (A) 74 %; RDW 14.3 % (11.5-15.5); WBC 10.7 k/uL (3.8-10.6); WBC (Perox) 10.18
[2016-09-18 17:45] LABS: ALT 38 U/L (9-52); AST 36 U/L (14-36); Alkaline Phosphatase 101 U/L (38-126); Anion Gap 14 mmol/L; Blood Urea Nitrogen 19 mg/dL (7-17); Calcium 7.5 mg/dL (8.4-10.2); Carbon Dioxide 25 mmol/L (22-30); Chloride 102 mmol/L (98-107); Glucose 153 mg/dL (74-99); Magnesium 1.5 mg/dL (1.6-2.3); Non-African American GFR(MDRD) 54 (>60 ml/min/1.73 sqM); Potassium 3.7 mmol/L (3.5-5.1); Sodium 141 mmol/L (137-145); Total Bilirubin 0.6 mg/dL (0.2-1.3)
[2016-09-18] MEDS ORDERED: MAGNESIUM SULFATE-D5W PMX 1 GM in DEXTROSE/WATER 1 100ML.BAG IVPB ONE (18:00)
[2016-09-18] MEDS ORDERED: CALCIUM GLUCONATE 1,000 MG in SODIUM CHLORIDE 0.9% 100 ML IVPB ONE (18:01)
[2016-09-18 19:21] VITALS: PULSE 65; RESP 16
[2016-09-18 20:33] VITALS: BP 121/70; TEMP 97.6
== END 2016-09-18 20:31 | disposition home or self-care (01) ==
LOC: EC 16:32
DX: E83.51 Hypocalcemia (principal); E83.42 Hypomagnesemia; E11.9 Type 2 diabetes mellitus without complications; K21.9 Gastro-esophageal reflux disease without esophagitis; E78.5 Hyperlipidemia, unspecified; I10 Essential (primary) hypertension; F32.9 Major depressive disorder, single episode, unspecified; Z87.891 Personal history of nicotine dependence; Z88.8 Allergy status to other drugs, medicaments and biological substances; Z79.82 Long term (current) use of aspirin; Z79.4 Long term (current) use of insulin; Z79.899 Other long term (current) drug therapy
CPT/HCPCS: 99283; 96365; 96368; 36415; 80053; 83735; 85025; J3475; J0610

== ENCOUNTER → 2017-02-08 | Outpatient (CLI) | payer OTHER ==
[2017-02-08 11:42] VITALS: BP 190/94; PULSE 102; RESP 20; TEMP 98.3; BMI 60.0
[2017-02-08 13:14] LABS: HCT 44.1 % (34.0-46.0); HGB 13.6 gm/dL (11.4-16.0); Hypochromasia Moderate; MCH 28.6 pg (25.0-35.0); MCHC 30.8 g/dL (31.0-37.0); MCV 92.7 fL (80.0-100.0); Mean Platelet Volume 7.8; Platelet Count 193 k/uL (150-450); RBC 4.75 m/uL (3.80-5.40); RDW 13.3 % (11.5-15.5); WBC 6.6 k/uL (3.8-10.6)
[2017-02-08 13:30] LABS: ALT 50 U/L (9-52); AST 41 U/L (14-36); Albumin 3.6 g/dL (3.5-5.0); Alkaline Phosphatase 98 U/L (38-126); Anion Gap 9 mmol/L; Blood Urea Nitrogen 14 mg/dL (7-17); Calcium 8.5 mg/dL (8.4-10.2); Carbon Dioxide 28 mmol/L (22-30); Chloride 107 mmol/L (98-107); Cholesterol 191 mg/dL (<200); Glucose 141 mg/dL (74-99); HDL Cholesterol 52 mg/dL (40-60); LDL Cholesterol,Calculated 113 mg/dL (0-99); Potassium 4.3 mmol/L (3.5-5.1); Sodium 144 mmol/L (137-145); Total Bilirubin 0.3 mg/dL (0.2-1.3); Total Protein 6.7 g/dL (6.3-8.2); Triglycerides 131 mg/dL (<150)
[2017-02-08 13:43] LABS: T4, Free (Free Thyroxine) 2.61 ng/dL (0.78-2.19)
[2017-02-08 19:01] LABS: Folate, Serum 6.8 ng/mL
[2017-02-08 19:18] LABS: Iron Saturation 7.42 (12.00-45.00)
[2017-02-08 23:45] LABS: Hemoglobin A1C 7.5 % (4.0-6.0)
--- NOTE | 2017-04-14 12:03 | P.HPBAR ---
Bariatric H&P - History & Physicial H&P Date: 02/08/17 History & Physicial: Visit/CC: arpitacharity HEMAL Patient initial contact: Initial weight: 155.038 kg Initial weight in pounds: 341.80 Height: 5 ft 3.25 in Initial BMI: 60.0 Last weight: Current weight: 155.038 kg Current weight in pounds: 341.80 Current BMI: 60.0 [place] body weight (based on NIH guidelines): 52.73 kg Excess body weight loss: 0.0% The patient is a 61 year-old F who presents for Bariatric Assessment. REASON FOR CONSULTATION: Initial bariatric evaluation. HISTORY OF PRESENT ILLNESS: Laura Bishop is a 62-year-old female who presents with morbid obesity. Her highest weight was 360 pounds. She has tried caloric restriction with minimal success. As a result of her morbid obesity, she has developed obstructive sleep apnea, hypertension, hyperlipidemia, diabetes type 2 , including osteoarthritis. Her highest body mass index was 63.4. Her ideal body weight is 140 pounds. She is 201 pounds overweight. She is looking into weight loss procedures. She has tried weight loss for 5+ years. She has completed previous cardiac clearance in the last 12 months. She has not had a colonoscopy. She also complains of intermittent epigastric abdominal pain. PAST MEDICAL HISTORY: 1. Morbid obesity. 2. Body mass index of 60.1 3. Thyroid neoplasm. 4. Diabetes type 2. 5. Hyperlipidemia. 6. Essential hypertension. 7. Depression. 8. Gastroesophageal reflux disease. 9. Hypothyroidism. 10. Hyperlipidemia. 11. Seasonal ALLERGIES. PAST SURGICAL HISTORY: 1. Total thyroidectomy. 2. Adenoidectomy. 3. Cholecystectomy. 4. Tonsillectomy. 5. Tubal ligation. 6. Colonoscopy. 7. Right nephrectomy. 8. Breast biopsy. 9. D&C. 10. Upper endoscopy. HOME MEDICATIONS: 1. Calcium with vitamin D. 2. Wellbutrin XL 3. Norvasc. 4. Prilosec. 5. Synthroid. 6. Avalide. 7. Lantus insulin. 8. Humalog insulin 9. [place] 5-325 10. Zyrtec 11. Lipitor 12. Aspirin ALLERGIES: 1. Prednisone SOCIAL HISTORY: Former tobacco use. No active alcohol use. FAMILY HISTORY: No family history of ulcerative colitis disease or Crohn's disease. She does have a family history of morbid obesity. She denies any lupus in her family. No reports of stomach or esophageal cancer. She has a family history of diabetes. REVIEW OF ORGAN SYSTEMS: CONSTITUTIONAL: Her highest weight was 360 pounds last year. Today she comes in weighing 341 pounds. At her height of 5 foot 3.25 inches, her ideal body weight is 140 pounds. She is 201 pounds overweight. Her highest body mass index is 63.4 Today her BMI is 60.1. HEENT: Denies any active troubles with vision or hearing. Has troubles with swallowing now resolved after thyroidectomy. ENDOCRINE: Has insulin dependent diabetes. Has hypothyroidism. CARDIOVASCULAR: No reports of palpitations or heart attacks or chest pain. History of hypertension. RESPIRATORY: Has daytime somnolence including snoring and sleep apnea. No asthma. GI: Denies any bright red blood per rectum or constipation. Does have gastroesophageal reflux disease as described above. MUSCULOSKELETAL: Has lower back pain and joint pain. Has osteoarthritis of the hips and knees. NEURO: No headaches. No seizure disorders. PSYCH: Has depression without suicidal ideation. RHEUMATOLOGIC: No lupus. No rheumatoid arthritis. HEMATOLOGIC: Denies any abnormal bleeding or bruising. No personal history of DVTs. SKIN: No rash. No skin cancer. PHYSICAL EXAM: VITAL SIGNS: Height 5 foot 3.25 inches, weight 341 pounds. BMI 60.1 Vital Signs Temp 98.3 F 02/08/17 11:05 Pulse 102 H 02/08/17 11:05 Resp 20 02/08/17 11:05 BP 190/94 02/08/17 11:05 Pulse Ox GENERAL: Well-developed female in no acute distress. HEENT: No scleral icterus. Extraocular movements grossly intact. Hears conversational speech. No nasal drainage. NECK: Supple without lymphadenopathy. Well-healed collar incision from previous thyroidectomy. CHEST: Nonlabored respirations with equal bilateral excursions. CARDIOVASCULAR: Tachycardic. Distal 2+ pulses. ABDOMEN: Obese, soft, nontender, nondistended. MUSCULOSKELETAL: No clubbing, cyanosis, or edema. Gross strength 5/5 distal lower extremities. NEURO: No focal or lateralizing signs. Cranial nerves 2 through 12 grossly within normal limits. PSYCH: Appropriate affect. Alert and oriented to person, place and time. SKIN: Good skin turgor. Well perfused. ASSESSMENT: 1. Morbid obesity due to excess calories. 2. Body mass index 63.4 down to 60.1. 3. Gastroesophageal reflux disease. 4. Obstructive sleep apnea. 5. Thyroid neoplasm. 6. Depression. 7. Hyperlipidemia. 8. Diabetes type 2, insulin-dependent. 9. Osteoarthritis involving the bilateral hips. 10. Osteoarthritis of the bilateral knees. 11. Dietary surveillance and counseling. 12. Need for colonic screening. 13. Hypothyroidism. 14. Epigastric abdominal pain. 15. Essential hypertension. 16. Tachycardic. PLAN: 1. Surgical options including a band, gastric bypass, sleeve gastrectomy were described in detail. Alternatives such as gastric balloon including duodenal switch were described. 2. The [place] [facility]ariat[facility] data and outcomes calculator were described with surgical options. 3. Recommend a bariatric metabolic panel to evaluate for micro- including macronutrient deficiencies. 4. For history of sleep apnea, recommend evaluation and treatment. 5. Dietary surveillance and counseling was reviewed, I have asked her to increase her protein intake to at least 70 grams daily. 6. May need cardiac reevaluation with history of tachycardia. 7. Recommend medical risk assessment. 8. Psych assessment per insurance guidelines. 9. Follow up upon completion of upper endoscopy. 10. Recommend food journal. 11. Recommend upper and lower endoscopy for history of epigastric abdominal pain including colonic screening. Thank you for this consultation. Past Medical History Past Medical History: Diabetes Mellitus, GERD/Reflux, Hyperlipidemia, Hypertension, Thyroid Disorder Additional Past Medical History / Comment(s): DYSPHAGIA, THYROID NODULE History of Any Multi-Drug Resistant Organisms: None Reported Past Surgical History: Adenoidectomy, Cholecystectomy, Tonsillectomy, Tubal Ligation Additional Past Surgical History / Comment(s): COLONOSCOPY/EGD, RT KIDNEY REMOVED, BREAST BX,. D & C, THYROIDECTOMY Past Anesthesia/Blood Transfusion Reactions: Motion Sickness, Postoperative Nausea & Vomiting (PONV) Past Psychological History: Depression Smoking Status: Former smoker Past Alcohol Use History: None Reported Additional Past Alcohol Use History / Comment(s): QUIT SMOKING 1984, SMOKED 3-4 CIGARETTES DAILY FROM AGE 18 (1973) Past Drug Use History: None Reported - Past Family History Father Family Medical History: Cancer Additional Family Medical History / Comment(s): LUNG Mother Family Medical History: Cancer Additional Family Medical History / Comment(s): BREAST Sister(s) Family Medical History: Cancer Additional Family Medical History / Comment(s): 2 SISTER HAD BREAST CANCER Surgical - Exam Vital Signs Temp Pulse Resp BP 98.3 F 102 H 20 190/94 02/08/17 11:05 02/08/17 11:05 02/08/17 11:05 02/08/17 11:05 Results - Labs 02/08/17 12:39 02/08/17 12:39 Bariatric Checklist Checklist: Plan: Checklist: EGD: 1. Hiatal hernia: 2. H. Pylori: HgbA1c: Vitamin D: Smoking: Former smoker Primary care physician referral: Dr Stephy Harris Psychiatry clearance: Cardiology clearance: Sleep study: Diet journal: VTE risk score: VTE risk level: Rehab needs at discharge:
== END | disposition home or self-care (01) ==
LOC: BARWHC3 09:45
PROVIDERS: ATTEND Surgery Plastic and Reconstructive Surgery
DX: Z48.815 Encounter for surgical aftercare following surgery on the digestive system (principal); E66.01 Morbid (severe) obesity due to excess calories; K21.9 Gastro-esophageal reflux disease without esophagitis; G47.33 Obstructive sleep apnea (adult) (pediatric); C73 Malignant neoplasm of thyroid gland; F32.9 Major depressive disorder, single episode, unspecified; E78.5 Hyperlipidemia, unspecified; E11.9 Type 2 diabetes mellitus without complications; I10 Essential (primary) hypertension; R00.0 Tachycardia, unspecified; E89.0 Postprocedural hypothyroidism; E89.1 Postprocedural hypoinsulinemia; D50.8 Other iron deficiency anemias; E44.0 Moderate protein-calorie malnutrition; E55.9 Vitamin D deficiency, unspecified; G47.30 Sleep apnea, unspecified; Z68.44 Body mass index [BMI] 60.0-69.9, adult; Z79.4 Long term (current) use of insulin; Z71.3 Dietary counseling and surveillance; Z79.899 Other long term (current) drug therapy; Z79.82 Long term (current) use of aspirin; Z79.51 Long term (current) use of inhaled steroids; Z87.891 Personal history of nicotine dependence; Z90.49 Acquired absence of other specified parts of digestive tract; Z90.89 Acquired absence of other organs; Z90.5 Acquired absence of kidney
CPT/HCPCS: 36415; 80053; 80061; 82306; 82607; 82728; 82746; 83036; 83540; 83550; 84425; 84439; 84443; 85027; 93005; 99201

== ENCOUNTER → 2017-04-30 | Outpatient (CLI) | payer OTHER ==
[2017-04-30 13:47] VITALS: BMI 60.0
== END | disposition home or self-care (01) ==
LOC: BARWHC3 09:01
PROVIDERS: ATTEND Surgery Plastic and Reconstructive Surgery
DX: E66.01 Morbid (severe) obesity due to excess calories (principal)
CPT/HCPCS: 97804

== ENCOUNTER → 2017-05-02 | Outpatient (CLI) | payer OTHER ==
[2017-05-02 14:38] VITALS: RESP 16; TEMP 98.1; BMI 59.8
--- NOTE | 2017-06-03 17:39 | P.PN ---
Subjective Progress Note Date: 05/02/17 DATE: 05/02/2017 CHIEF COMPLAINT: Bariatric evaluation. HISTORY OF PRESENT ILLNESS: Laura Bishop is a 62-year-old female who presents with morbid obesity. Her highest weight was 360 pounds. Her highest body mass index was 63.4. Her ideal body weight is 140 pounds. She is 199 pounds overweight. She lost 2 pounds in 3 months. She completed upper endoscopy. As a result of her morbid obesity, she has developed diabetes type 2, hypertension , hyperlipidemia including osteoarthritis. PAST MEDICAL HISTORY: 1. Morbid obesity. 2. Body mass index of 60.1 3. Thyroid neoplasm. 4. Diabetes type 2. 5. Hyperlipidemia. 6. Essential hypertension. 7. Depression. 8. Gastroesophageal reflux disease. 9. Hypothyroidism. 10. Hyperlipidemia. 11. Seasonal ALLERGIES. PAST SURGICAL HISTORY: 1. Total thyroidectomy. 2. Adenoidectomy. 3. Cholecystectomy. 4. Tonsillectomy. 5. Tubal ligation. 6. Colonoscopy. 7. Right nephrectomy. 8. Breast biopsy. 9. D&C. 10. Upper endoscopy. HOME MEDICATIONS: 1. Calcium with vitamin D. 2. Wellbutrin XL 3. Norvasc. 4. Prilosec. 5. Synthroid. 6. Avalide. 7. Lantus insulin. 8. Humalog insulin 9. [place] 5-325 10. Zyrtec 11. Lipitor 12. Aspirin ALLERGIES: 1. Prednisone SOCIAL HISTORY: Former tobacco use. No active alcohol use. FAMILY HISTORY: No family history of ulcerative colitis disease or Crohn's disease. She does have a family history of morbid obesity. She denies any lupus in her family. No reports of stomach or esophageal cancer. She has a family history of diabetes. REVIEW OF ORGAN SYSTEMS: CONSTITUTIONAL: Her highest weight was 360 pounds last year. Today she comes in weighing 341 pounds. At her height of 5 foot 3.25 inches, her ideal body weight is 140 pounds. She is 201 pounds overweight. Her highest body mass index is 63.4 Today her BMI is 60.1. HEENT: Denies any active troubles with vision or hearing. Has troubles with swallowing now resolved after thyroidectomy. ENDOCRINE: Has insulin dependent diabetes. Has hypothyroidism. CARDIOVASCULAR: No reports of palpitations or heart attacks or chest pain. History of hypertension. RESPIRATORY: Has daytime somnolence including snoring and sleep apnea. No asthma. GI: Denies any bright red blood per rectum or constipation. Does have gastroesophageal reflux disease as described above. MUSCULOSKELETAL: Has lower back pain and joint pain. Has osteoarthritis of the hips and knees. NEURO: No headaches. No seizure disorders. PSYCH: Has depression without suicidal ideation. RHEUMATOLOGIC: No lupus. No rheumatoid arthritis. HEMATOLOGIC: Denies any abnormal bleeding or bruising. No personal history of DVTs. SKIN: No rash. No skin cancer. PHYSICAL EXAM: VITAL SIGNS: Height 5 foot 3.25 inches, weight 339 pounds. BMI 59.8 Vital Signs Temp 98.1 F 05/02/17 14:27 Pulse Resp 16 05/02/17 14:27 BP Pulse Ox GENERAL: Well-developed female in no acute distress. HEENT: No scleral icterus. Extraocular movements grossly intact. Hears conversational speech. No nasal drainage. NECK: Supple without lymphadenopathy. Well-healed collar incision from previous thyroidectomy. CHEST: Nonlabored respirations with equal bilateral excursions. CARDIOVASCULAR: Tachycardic. Distal 2+ pulses. ABDOMEN: Obese, soft, nontender, nondistended. MUSCULOSKELETAL: No clubbing, cyanosis, or edema. Gross strength 5/5 distal lower extremities. NEURO: No focal or lateralizing signs. Cranial nerves 2 through 12 grossly within normal limits. PSYCH: Appropriate affect. Alert and oriented to person, place and time. SKIN: Good skin turgor. Well perfused. EGD FINDINGS: Squamocolumnar junction 35 cm from the incisors. Diaphragmatic hiatus at 36 cm. Hiatal hernia 1 cm. Hill grade 4 lower esophageal valve. LA grade C erosive esophagitis. No active duodenitis. Mild chronic gastritis. Final Pathologic Diagnosis GASTRIC ANTRUM, BIOPSY: MILD CHRONIC GASTRITIS. IMMUNOPEROXIDASE STAIN NEGATIVE FOR HELICOBACTER PYLORI ORGANISMS (CONTROLS APPROPRIATE). LABS: Reviewed demonstrating suppressed TSH level. Vitamin D low 25. AST elevated 41. Iron extremely low 21. Hemoglobin A1c 7.5%. MCHC is low. EKG: EKG showed premature atrial complexes otherwise normal. ASSESSMENT: 1. Morbid obesity due to excess calories. 2. Body mass index 63.4 down to 59.8. 3. Gastroesophageal reflux disease. 4. Obstructive sleep apnea. 5. Thyroid neoplasm. 6. Depression. 7. Hyperlipidemia. 8. Diabetes type 2, insulin-dependent. 9. Osteoarthritis involving the bilateral hips. 10. Osteoarthritis of the bilateral knees. 11. Dietary surveillance and counseling. 12. AST elevated. 13. Hypothyroidism. 14. Epigastric abdominal pain. 15. Essential hypertension. 16. Elevated TSH level. 17. Vitamin D deficiency. 18. Iron deficiency anemia. PLAN: 1. Will need correction of extreme iron deficiency anemia with iron supplement. 2. Recommend vitamin D supplement. 3. May need adjustment of TSH levels. Recommend follow-up with equal opportunity counselor. 4. She's pending completion of her bariatric profile. 5. Pending PCP letter. 6. Results of lower endoscopy consistent with follow-up in 10 years for colonoscope. Objective - Vital Signs Vital signs: Vital Signs Temp 98.1 F 05/02/17 14:27 Pulse Resp 16 05/02/17 14:27 BP Pulse Ox
== END | disposition home or self-care (01) ==
LOC: BARWHC3 13:18
PROVIDERS: ATTEND Surgery Plastic and Reconstructive Surgery
DX: E66.01 Morbid (severe) obesity due to excess calories (principal); K21.9 Gastro-esophageal reflux disease without esophagitis; G47.33 Obstructive sleep apnea (adult) (pediatric); D49.7 Neoplasm of unspecified behavior of endocrine glands and other parts of nervous system; F32.9 Major depressive disorder, single episode, unspecified; E78.5 Hyperlipidemia, unspecified; E11.9 Type 2 diabetes mellitus without complications; M16.0 Bilateral primary osteoarthritis of hip; M17.0 Bilateral primary osteoarthritis of knee; E03.9 Hypothyroidism, unspecified; I10 Essential (primary) hypertension; E55.9 Vitamin D deficiency, unspecified; D50.9 Iron deficiency anemia, unspecified; R79.89 Other specified abnormal findings of blood chemistry; R74.0 Nonspecific elevation of levels of transaminase and lactic acid dehydrogenase [LDH]; Z90.49 Acquired absence of other specified parts of digestive tract; Z79.82 Long term (current) use of aspirin; Z90.5 Acquired absence of kidney; Z71.3 Dietary counseling and surveillance; Z87.891 Personal history of nicotine dependence; Z79.4 Long term (current) use of insulin; Z68.43 Body mass index [BMI] 50.0-59.9, adult; Z79.891 Long term (current) use of opiate analgesic; Z79.899 Other long term (current) drug therapy; Z88.8 Allergy status to other drugs, medicaments and biological substances
CPT/HCPCS: 99211

== ENCOUNTER → 2017-10-10 | Outpatient (CLI) | payer OTHER ==
[2017-10-10 14:29] VITALS: BP 141/82; PULSE 51; TEMP 98.2; BMI 61.2
--- NOTE | 2017-10-10 15:24 | P.PN ---
Subjective Progress Note Date: 10/10/17 DATE OR SERVICE: 10/10/2017 CHIEF COMPLAINT: Bariatric evaluation. HISTORY OF PRESENT ILLNESS: Laura Bishop is a 62-year-old female who presents with lifelong morbid obesity. She comes in with history of 1 kidney. She is her for her gastric bypass. Her highest weight was 360 pounds. Her highest body mass index was 63.4. Her ideal body weight is 140 pounds. Since her last visit 6 months ago, she comes in 348 pounds from 339. She has gained 8 pounds in 6 months. She is 190 pounds overweight. As a result of her morbid obesity, she has developed diabetes type 2, hypertension, hyperlipidemia including osteoarthritis. PAST MEDICAL HISTORY: 1. Morbid obesity. 2. Body mass index of 63.4, initial 3. Thyroid neoplasm. 4. Diabetes type 2. 5. Hyperlipidemia. 6. Essential hypertension. 7. Depression. 8. Gastroesophageal reflux disease. 9. Hypothyroidism. 10. Hyperlipidemia. 11. Seasonal ALLERGIES. PAST SURGICAL HISTORY: 1. Total thyroidectomy. 2. Adenoidectomy. 3. Cholecystectomy. 4. Tonsillectomy. 5. Tubal ligation. 6. Colonoscopy. 7. Right nephrectomy. 8. Breast biopsy. 9. D&C. 10. Upper endoscopy. HOME MEDICATIONS: 1. Calcium with vitamin D. 2. Wellbutrin XL 3. Norvasc. 4. Prilosec. 5. Synthroid. 6. Avalide. 7. Lantus insulin. 8. Humalog insulin 9. [place] 5-325 10. Zyrtec 11. Lipitor 12. Aspirin ALLERGIES: 1. Prednisone SOCIAL HISTORY: Former tobacco use. No active alcohol use. FAMILY HISTORY: No family history of ulcerative colitis disease or Crohn's disease. She does have a family history of morbid obesity. She denies any lupus in her family. No reports of stomach or esophageal cancer. She has a family history of diabetes. REVIEW OF ORGAN SYSTEMS: CONSTITUTIONAL: Her highest weight was 360 pounds. Her highest body mass index was 63.4. Her ideal body weight is 140 pounds. Since her last visit 6 months ago, she comes in 348 pounds from 339. She has gained 8 pounds in 6 months. She is 190 pounds overweight. HEENT: Denies any active troubles with vision or hearing. Has troubles with swallowing now resolved after thyroidectomy. ENDOCRINE: Has insulin dependent diabetes. Has hypothyroidism. CARDIOVASCULAR: No reports of palpitations or heart attacks or chest pain. History of hypertension. RESPIRATORY: Has daytime somnolence including snoring and sleep apnea. No asthma. GI: Denies any bright red blood per rectum or constipation. Does have gastroesophageal reflux disease as described above. MUSCULOSKELETAL: Has lower back pain and joint pain. Has osteoarthritis of the hips and knees. NEURO: No headaches. No seizure disorders. PSYCH: Has depression without suicidal ideation. RHEUMATOLOGIC: No lupus. No rheumatoid arthritis. HEMATOLOGIC: Denies any abnormal bleeding or bruising. No personal history of DVTs. SKIN: No rash. No skin cancer. PHYSICAL EXAM: VITAL SIGNS: Height 5 foot 3.25 inches, weight 348 pounds. BMI 61.3 Vital Signs Temp 98.2 F 10/10/17 14:22 Pulse 51 L 10/10/17 14:22 Resp BP 141/82 10/10/17 14:22 Pulse Ox GENERAL: Well-developed female in no acute distress. HEENT: No scleral icterus. Extraocular movements grossly intact. Hears conversational speech. No nasal drainage. NECK: Supple without lymphadenopathy. Well-healed collar incision from previous thyroidectomy. CHEST: Nonlabored respirations with equal bilateral excursions. CARDIOVASCULAR: Bradycardic. Distal 2+ pulses. ABDOMEN: Obese, soft, nontender, nondistended. MUSCULOSKELETAL: No clubbing, cyanosis, or edema. Gross strength 5/5 distal lower extremities. NEURO: No focal or lateralizing signs. Cranial nerves 2 through 12 grossly within normal limits. PSYCH: Appropriate affect. Alert and oriented to person, place and time. SKIN: Good skin turgor. Well perfused. ASSESSMENT: 1. Morbid obesity due to excess calories. 2. Body mass index 63.4 down to 61.3 3. Gastroesophageal reflux disease. 4. Obstructive sleep apnea. 5. Thyroid neoplasm. 6. Depression. 7. Hyperlipidemia. 8. Diabetes type 2, insulin-dependent. 9. Osteoarthritis involving the bilateral hips. 10. Osteoarthritis of the bilateral knees. 11. Dietary surveillance and counseling. 12. AST elevated. 13. Hypothyroidism. 14. Epigastric abdominal pain. 15. Essential hypertension. 16. Elevated TSH level. 17. Vitamin D deficiency. 18. Iron deficiency anemia. PLAN: 1. Went over expectations for surgery including post-op care. 2. She has one kidney. Protein adjustments and supplements advised. 3. Bariatric options between a sleeve, band and a Immanuel-en-Y gastric bypass were reviewed in detail. He elected for a sleeve gastrectomy. Robotic assisted approach described. 4. The [place] [facility] Data was also reviewed with benefits and risks as described. 5. An 8 page second-generation bariatric consent form was reviewed in detail including potential of bleeding, infection, leaks, adequate weight loss, nutritional deficiencies which he demonstrated understanding of the risks. 6. A 2 week high-protein low caloric 800 kcal diet described to address hepatomegaly. 7. Preoperative labs including complete metabolic panel and CBC with type and screen recommended. 8. DVT prophylaxis per [place] [facility]. 9. Antibiotic prophylaxis. 10. Inpatient hospitalization anticipated for more than 2 nights. 11. All questions and concerns were addressed with the patient. 12. Recommended dietary classes. 13. Completion of cardiac risk assessment for history of bradycardia. Objective - Vital Signs Vital signs: Vital Signs Temp 98.2 F 10/10/17 14:22 Pulse 51 L 10/10/17 14:22 Resp BP 141/82 10/10/17 14:22 Pulse Ox Intake & Output 10/09/17 10/10/17 10/10/17 18:59 06:59 18:59 Weight 158.122 kg
== END | disposition home or self-care (01) ==
LOC: BARWHC3 13:52
PROVIDERS: ATTEND Surgery Plastic and Reconstructive Surgery
DX: E66.01 Morbid (severe) obesity due to excess calories (principal); K21.9 Gastro-esophageal reflux disease without esophagitis; G47.33 Obstructive sleep apnea (adult) (pediatric); C73 Malignant neoplasm of thyroid gland; F32.9 Major depressive disorder, single episode, unspecified; E78.5 Hyperlipidemia, unspecified; E11.9 Type 2 diabetes mellitus without complications; M16.0 Bilateral primary osteoarthritis of hip; M17.0 Bilateral primary osteoarthritis of knee; R79.89 Other specified abnormal findings of blood chemistry; E03.9 Hypothyroidism, unspecified; I10 Essential (primary) hypertension; E55.9 Vitamin D deficiency, unspecified; D50.9 Iron deficiency anemia, unspecified; Z79.4 Long term (current) use of insulin; Z68.44 Body mass index [BMI] 60.0-69.9, adult
CPT/HCPCS: 99211

== ENCOUNTER → 2017-12-12 | Outpatient (CLI) | payer OTHER ==
--- NOTE | 2017-12-12 13:31 | P.PN ---
Subjective Progress Note Date: 12/12/17 HPI: She presents questions of her gastric bypass. ASSESSMENT: 1. Morbid obesity PLAN: 1. Consent gastric bypass consent reviewed.
[2017-12-12 13:38] VITALS: BP 132/80; PULSE 80; TEMP 98.2; BMI 59.3
== END | disposition home or self-care (01) ==
LOC: BARWHC3 12:45
PROVIDERS: ATTEND Surgery Plastic and Reconstructive Surgery
DX: E66.01 Morbid (severe) obesity due to excess calories (principal); Z68.43 Body mass index [BMI] 50.0-59.9, adult
CPT/HCPCS: 99211

== ENCOUNTER → 2017-12-12 | Outpatient (CLI) | payer OTHER ==
[2017-12-12 09:42] LABS: Basophils # (A) 0.1 k/uL (0-0.2); Basophils % (A) 1 %; Eosinophils # (A) 0.4 k/uL (0-0.7); Eosinophils % (A) 4 %; HCT 50.7 % (34.0-46.0); HGB 15.7 gm/dL (11.4-16.0); Lymphocytes # (A) 1.6 k/uL (1.0-4.8); Lymphocytes % (A) 16 %; MCH 27.6 pg (25.0-35.0); MCHC 30.9 g/dL (31.0-37.0); MCV 89.1 fL (80.0-100.0); Monocytes # (A) 0.6 k/uL (0-1.0); Monocytes % (A) 7 %; Neutrophils # (A) 6.9 k/uL (1.3-7.7); Neutrophils % (A) 71 %; Platelet Count 163 k/uL (150-450); RBC 5.69 m/uL (3.80-5.40); RDW 15.6 % (11.5-15.5); WBC 9.7 k/uL (3.8-10.6)
[2017-12-12 10:26] LABS: Albumin 3.8 g/dL (3.5-5.0); Calcium 8.9 mg/dL (8.4-10.2); Total Bilirubin 0.7 mg/dL (0.2-1.3); Total Protein 7.2 g/dL (6.3-8.2)
== END | disposition home or self-care (01) ==
LOC: LABPAT 08:56
PROVIDERS: ATTEND Surgery Plastic and Reconstructive Surgery
DX: Z01.818 Encounter for other preprocedural examination (principal); Z01.812 Encounter for preprocedural laboratory examination
CPT/HCPCS: 36415; 80053; 85025; 86850; 86900; 86901; 93005

== ENCOUNTER 2017-12-17 10:30 | Inpatient (IN) | payer OTHER ==
--- NOTE | 2017-12-16 17:39 | P.GSHP ---
History of Present Illness H&P Date: 12/17/17 DATE OR SERVICE: 12/17/2017 CHIEF COMPLAINT: Morbid obesity HISTORY OF PRESENT ILLNESS: Laura Bishop is a 62-year-old female who presents with lifelong morbid obesity. She comes in with history of 1 kidney. She is looking into gastric bypass. Her highest weight was 360 pounds. Her highest body mass index was 63.4. Her ideal body weight is 140 pounds. As a result of her morbid obesity, she has developed diabetes type 2, hypertension, hyperlipidemia including osteoarthritis. PAST MEDICAL HISTORY: 1. Morbid obesity. 2. Body mass index of 63.4, initial 3. Thyroid neoplasm. 4. Diabetes type 2. 5. Hyperlipidemia. 6. Essential hypertension. 7. Depression. 8. Gastroesophageal reflux disease. 9. Hypothyroidism. 10. Hyperlipidemia. 11. Seasonal ALLERGIES. PAST SURGICAL HISTORY: 1. Total thyroidectomy. 2. Adenoidectomy. 3. Cholecystectomy. 4. Tonsillectomy. 5. Tubal ligation. 6. Colonoscopy. 7. Right nephrectomy. 8. Breast biopsy. 9. D&C. 10. Upper endoscopy. HOME MEDICATIONS: 1. Calcium with vitamin D. 2. Wellbutrin XL 3. Norvasc. 4. Prilosec. 5. Synthroid. 6. Avalide. 7. Lantus insulin. 8. Humalog insulin 9. [place] 5-325 10. Zyrtec 11. Lipitor 12. Aspirin ALLERGIES: 1. Prednisone SOCIAL HISTORY: Former tobacco use. No active alcohol use. FAMILY HISTORY: No family history of ulcerative colitis disease or Crohn's disease. She does have a family history of morbid obesity. She denies any lupus in her family. No reports of stomach or esophageal cancer. She has a family history of diabetes. REVIEW OF ORGAN SYSTEMS: CONSTITUTIONAL: Her highest weight was 360 pounds. Her highest body mass index was 63.4. Her ideal body weight is 140 pounds. Since her last visit 6 months ago, she comes in 348 pounds from 339. She has gained 8 pounds in 6 months. She is 190 pounds overweight. HEENT: Denies any active troubles with vision or hearing. Has troubles with swallowing now resolved after thyroidectomy. ENDOCRINE: Has insulin dependent diabetes. Has hypothyroidism. CARDIOVASCULAR: No reports of palpitations or heart attacks or chest pain. History of hypertension. RESPIRATORY: Has daytime somnolence including snoring and sleep apnea. No asthma. GI: Denies any bright red blood per rectum or constipation. Does have gastroesophageal reflux disease as described above. MUSCULOSKELETAL: Has lower back pain and joint pain. Has osteoarthritis of the hips and knees. NEURO: No headaches. No seizure disorders. PSYCH: Has depression without suicidal ideation. RHEUMATOLOGIC: No lupus. No rheumatoid arthritis. HEMATOLOGIC: Denies any abnormal bleeding or bruising. No personal history of DVTs. SKIN: No rash. No skin cancer. PHYSICAL EXAM: VITAL SIGNS: Height 5 foot 3.25 inches, weight 349 pounds. BMI 61.3 GENERAL: Well-developed female in no acute distress. HEENT: No scleral icterus. Extraocular movements grossly intact. Hears conversational speech. No nasal drainage. NECK: Supple without lymphadenopathy. Well-healed collar incision from previous thyroidectomy. CHEST: Nonlabored respirations with equal bilateral excursions. CARDIOVASCULAR: Bradycardic. Distal 2+ pulses. ABDOMEN: Obese, soft, nontender, nondistended. MUSCULOSKELETAL: No clubbing, cyanosis, or edema. Gross strength 5/5 distal lower extremities. NEURO: No focal or lateralizing signs. Cranial nerves 2 through 12 grossly within normal limits. PSYCH: Appropriate affect. Alert and oriented to person, place and time. SKIN: Good skin turgor. Well perfused. ASSESSMENT: 1. Morbid obesity due to excess calories. 2. Body mass index 63.4 down to 61.3 3. Gastroesophageal reflux disease. 4. Obstructive sleep apnea. 5. Thyroid neoplasm. 6. Depression. 7. Hyperlipidemia. 8. Diabetes type 2, insulin-dependent. 9. Osteoarthritis involving the bilateral hips. 10. Osteoarthritis of the bilateral knees. 11. Dietary surveillance and counseling. 12. AST elevated. 13. Hypothyroidism. 14. Epigastric abdominal pain. 15. Essential hypertension. 16. Elevated TSH level. 17. Vitamin D deficiency. 18. Iron deficiency anemia. PLAN: 1. Went over expectations for surgery including post-op care. 2. She has one kidney. Protein adjustments and supplements advised. 3. Bariatric options between a sleeve, band and a Immanuel-en-Y gastric bypass were reviewed in detail. She elected for a gastric bypass. Robotic assisted approach described. 4. The [place] [facility] Data was also reviewed with benefits and risks as described. 5. An 8 page second-generation bariatric consent form was reviewed in detail including potential of bleeding, infection, leaks, adequate weight loss, nutritional deficiencies which he demonstrated understanding of the risks. 6. A 2 week high-protein low caloric 800 kcal diet described to address hepatomegaly. 7. DVT prophylaxis per [place] [facility]. 8. Antibiotic prophylaxis. 9. Inpatient hospitalization anticipated for more than 2 nights. Past Medical History Past Medical History: Diabetes Mellitus, GERD/Reflux, Hyperlipidemia, Hypertension, Thyroid Disorder Additional Past Medical History / Comment(s): THYROID NODULE History of Any Multi-Drug Resistant Organisms: None Reported Past Surgical History: Adenoidectomy, Cholecystectomy, Tonsillectomy, Tubal Ligation Additional Past Surgical History / Comment(s): COLONOSCOPY/EGD, RT KIDNEY REMOVED, BREAST BX,. D & C, THYROIDECTOMY Past Anesthesia/Blood Transfusion Reactions: Motion Sickness, Postoperative Nausea & Vomiting (PONV) Smoking Status: Former smoker - Past Family History Father Family Medical History: Cancer Additional Family Medical History / Comment(s): LUNG Mother Family Medical History: Cancer Additional Family Medical History / Comment(s): BREAST Sister(s) Family Medical History: Cancer Additional Family Medical History / Comment(s): 2 SISTER HAD BREAST CANCER Medications and Allergies Home Medications Medication Instructions Recorded Confirmed Type Aspirin EC [Ecotrin Low Dose] 81 mg PO DAILY 03/10/16 12/13/17 History Atorvastatin [Lipitor] 80 mg PO DAILY 03/10/16 12/13/17 History Cetirizine HCl [Zyrtec] 10 mg PO DAILY 03/10/16 12/13/17 History INSULIN LISPRO (HumaLOG) [humaLOG] 18 unit SQ AC-BRKFST 03/10/16 12/13/17 History Insulin Glargine [Lantus] 72 unit SQ HS 03/10/16 12/13/17 History Irbesartan/Hydrochlorothiazide 1 tab PO DAILY 03/10/16 12/13/17 History [Avalide 300-12.5 mg Tablet] Omeprazole [PriLOSEC] 20 mg PO AC-BID 03/10/16 12/13/17 History amLODIPine [Norvasc] 10 mg PO QAM 03/10/16 12/13/17 History buPROPion HCL [Wellbutrin XL] 300 mg PO DAILY 03/10/16 12/13/17 History Calcium Citrate/Vitamin D3 1 tab PO DAILY 02/16/17 12/13/17 History [Calcium Cit 315-Vit D3 250mg Tab] INSULIN LISPRO (humaLOG) [humaLOG] 20 units SQ AC-LUNCH 03/20/17 12/13/17 History INSULIN LISPRO (humaLOG) [humaLOG] 24 units SQ AC-SUPPER 03/20/17 12/13/17 History Levothyroxine Sodium [Synthroid] 25 mcg PO DAILY 05/04/17 12/13/17 History Levothyroxine Sodium [Synthroid] 200 mcg PO DAILY 05/04/17 12/13/17 History Metoprolol Tartrate [Lopressor] 50 mg PO DAILY 05/04/17 12/13/17 History Amoxicillin 500 mg PO Q8H 12/07/17 12/13/17 History methylPREDNISolone Dose Pack 4 mg PO DIRECTED 12/07/17 12/13/17 History [Medrol Dose Pack] Allergies Allergy/AdvReac Type Severity Reaction Status Date / Time prednisone Allergy Rash/Hives Verified 12/12/17 13:36
[~2017-12-17 10:30] MED LIST changes: -ACETAMINOPHEN IV (For NPO) 1,000 MG in EMPTY BAG 1 BAG IVPB ONE; +CHLORHEXIDINE GLUCONATE 15 ML CUP MUCOUS MEM ONE; -DEXAMETHASONE SOD PHOSPHATE 10 MG/ML 1 ML VIAL IV ONE; +ENOXAPARIN 40 MG/0.4 ML SYRINGE SQ STA; -HEPARIN SODIUM,PORCINE 5,000 UNIT/ML 1 ML VIAL SQ ONE; +HYDROmorphone 0.5 MG/0.5 ML SYRINGE IVP PRN; -HYDROmorphone 1 MG/ML 1 ML SYRINGE IVP PRN; -LACTATED RINGERS 1,000 ML IV SCH; -LIDOCAINE 1% 20 ML VIAL (10MG/ML) FOR IV START INTRADERMA PRN; -ONDANSETRON 4 MG/2 ML VIAL IVP ONE; +PANTOPRAZOLE 40 MG/10 ML VIAL IV STA; -Pre Op ABX Message 1 EACH MISC MISCELLANE ONE; -SCOPOLAMINE 1.5MG/72HR PATCH TRANSDERM ONE; -ceFAZolin 2 GM in SODIUM CHLORIDE 0.9% 100 ML IVPB ONE
[2017-12-17] MEDS ORDERED: LIDOCAINE 1% 20 ML VIAL (10MG/ML) FOR IV START INTRADERMA ONE (13:33)
[2017-12-17 13:45] LABS: Glucose,Whole Blood 72 mg/dL (75-99)
[2017-12-17] MEDS: LACTATED RINGERS 1,000 ML IV SCH (13:46)
[2017-12-17] MEDS: ONDANSETRON 4 MG/2 ML VIAL IVP ONE ×2 (13:51→19:09)
[2017-12-17] MEDS ORDERED: DEXAMETHASONE SOD PHOSPHATE 4 MG/ML 1 ML VIAL IV ONE (13:51)
[2017-12-17] MEDS ORDERED: ROCURONIUM BROMIDE 10 MG/ML 10 ML VIAL IV ONE (15:07)
[2017-12-17] MEDS ORDERED: ePHEDrine SULFATE/0.9% NACL/PF 50 MG/5 ML SYRINGE IV ONE (15:07)
[2017-12-17] MEDS ORDERED: MIDAZOLAM 2 MG/2 ML VIAL ONE (15:07)
[2017-12-17] MEDS ORDERED: fentaNYL (PF) 50 MCG/ML 2 ML AMP ONE (15:07)
[2017-12-17] MEDS ORDERED: LIDOCAINE 1% INJ 10MG/ML (20 ML MDV) ONE (15:07)
[2017-12-17] MEDS ORDERED: PROPOFOL 10 MG/ML 20 ML VIAL IV ONE (15:07)
[2017-12-17] MEDS ORDERED: BUPIVACAIN-EPI 0.25%-1:200,000 30 ML VIAL SQ ONE (15:33)
[2017-12-17] MEDS ORDERED: LACTATED RINGERS 1,000 ML IV ONE ×2 (16:15→19:25)
[2017-12-17 18:49] LABS: Glucose,Whole Blood 168 mg/dL (75-99)
[2017-12-17] MEDS ORDERED: NALOXONE 0.4 MG/ML 1 ML VIAL IV PRN (18:49)
[2017-12-17] MEDS ORDERED: ACETAMINOPHEN IV (For NPO) 1,000 MG in EMPTY BAG 1 BAG IVPB ONE (18:49)
[2017-12-17] MEDS ORDERED: HYDROmorphone 1 MG/ML 1 ML SYRINGE IVP PRN (18:49)
[2017-12-17] MEDS ORDERED: diphenhydrAMINE 50 MG/ML 1 ML VIAL IVP PRN (18:49)
[2017-12-17] MEDS ORDERED: HYDROcodone/APAP 15 ML SOLUTION PO PRN (18:49)
--- NOTE | 2017-12-17 18:49 | P.OP ---
Date of Procedure: 12/17/17 Description of Procedure: SURGEON: DION GARCIA MD PREOPERATIVE DIAGNOSES: 1. Morbid obesity due to excess calories. 2. Body mass index 63.4 down to 61.3 3. Gastroesophageal reflux disease. 4. Obstructive sleep apnea. 5. Thyroid neoplasm. 6. Depression. 7. Hyperlipidemia. 8. Diabetes type 2, insulin-dependent. 9. Osteoarthritis involving the bilateral hips. 10. Osteoarthritis of the bilateral knees. 11. Dietary surveillance and counseling. 12. AST elevated. 13. Hypothyroidism. 14. Epigastric abdominal pain. 15. Essential hypertension. 16. Elevated TSH level. 17. Vitamin D deficiency. 18. Iron deficiency anemia. POSTOPERATIVE DIAGNOSES: 1. Morbid obesity due to excess calories. 2. Body mass index 63.4 down to 61.3 3. Gastroesophageal reflux disease. 4. Obstructive sleep apnea. 5. Thyroid neoplasm. 6. Depression. 7. Hyperlipidemia. 8. Diabetes type 2, insulin-dependent. 9. Osteoarthritis involving the bilateral hips. 10. Osteoarthritis of the bilateral knees. 11. Dietary surveillance and counseling. 12. AST elevated. 13. Hypothyroidism. 14. Epigastric abdominal pain. 15. Essential hypertension. 16. Elevated TSH level. 17. Vitamin D deficiency. 18. Iron deficiency anemia. 19. Peritoneal adhesions midline and right upper quadrant from previous open cholecystectomy OPERATION: 1. Robotic assisted da Ijtendra Xi laparoscopic lysis of adhesions, over 30 minutes. 2. Robotic assisted da Jitendra Xi laparoscopic Ronaldo-en-Y gastric bypass, 100 cm antecolic antegastric Ronaldo limb, with 25 mm EEA. 3. Intraoperative esophagogastrojejunoscopy. ANESTHESIA: GETA and local ESTIMATED BLOOD LOSS: 20 mL SPECIMENS REMOVED: None. COMPLICATIONS: NONE. INDICATIONS: Laura Bishop is a 62-year-old female who presents with lifelong morbid obesity. She comes in with history of 1 kidney. She is looking into gastric bypass. Her highest weight was 360 pounds. Her highest body mass index was 63.4. Her ideal body weight is 140 pounds. As a result of her morbid obesity, she has developed diabetes type 2, hypertension, hyperlipidemia including osteoarthritis. Today she comes in weighing 332 pounds. She now presents to undergo robotic assisted gastric bypass. A second-generation bariatric consent form was described in detail including the possibility of protein malnutrition, leaks, gastrojejunal stricture, venous thrombosis, need for further surgery for which she demonstrated understanding. Benefits and risks of the procedure were described at length. Informed consent was obtained. DESCRIPTION: The patient was brought into the operating room theater. She was placed supine. She had received Lovenox subcutaneously for DVT prophylaxis. Additionally she Peridex oral solution as an oral decontaminant was placed per anesthesia. After general induction, the abdomen was prepped and draped in standard sterile fashion. Ioban draping was placed along the abdomen. A robotic da Jitendra Xi system was prepped and primed. The xiphoid to umbilicus was measured of 22 cm. Incisions were proposed at 17 cm from the xiphoid. Proposed port sites were marked with indelible marker along the anterior axillary line bilaterally, mid clavicular line bilaterally with each port marked 10 cm from each other. The robotic stapler port was marked for the right midclavicular line including along the left midclavicular line. A 5 mm 0 degrees laparoscopic trocar entry was performed along the left upper quadrant. The abdomen was insufflated to 15 mmHg pressure, which she tolerated well. Diagnostic laparoscopy demonstrated no injury to bowel, viscera, or mesentery. Severe adhesions along the right upper quadrant and midline was identified from previous open cholecystectomy. An 8 mm camera port was placed left lateral to the umbilicus at the epigastrium , 15 cm distal to the xiphoid. Next, 12-mm robot stapler port was placed along the right mid abdomen. An 12 mm port was exchanged along the left upper quadrant. An 8 mm port was placed on the left lateral abdominal wall under direct visualization Please note that the ports were placed 18 to 20 cm away from the target anatomy of the stomach. Care was taken to check that each robotic arm was safely away from collision with the bed or the patient. At the epigastrium, a medium sized Mariano liver retractor was placed under direct visualization with the Iron Cardiac Cath Lab Radiology Technologist placed under the right shoulder of the patient. The patient was repositioned in reverse Trendelenburg position at 14-degrees after lowering the bed. The robot was docked over the patient. Using grasper for arm 3, a grasper for arm 1, including vessel sealer for arm 4 , the robotic system was docked and primed as described. Instruments were interchanged by the assistant plant controller including endoscissors, the needle national van truck driver, and stapler. I had sat at the console. Attention was amde to the midline adhesions which were addressed using vessel sealer for over 30 minutes greater omentum to the anterior abdominal wall. No bowel involvement was identified. Next, the transverse mesocolon was reflected into the upper abdomen after dividing the mesentery and preparing for the jejunojejunostomy portion of the case. The ligament of Treitz was identified and measured 60 cm antegrade and marked using 3-0 Silk. The jejunum was divided at the 60 cm point using 45-mm white loads above the suture measurement. The biliopancreatic limb was held in place. The Ronaldo limb was measured 100 cm in an antegrade fashion to avoid tension along the proposed gastrojejunal anastomosis. At 100 cm along the anti-mesenteric border of the Ronaldo limb, a jejunojejunostomy was proposed whereby enterotomies were created along the biliopancreatic limb including the Ronaldo limb using a Bovie cautery. A stay suture of 3-0 Slik was placed to align and create the anastomosis. The enterotomies along the anti-mesenteric borders were created followed by unidirectional fire from the patient's right side using 2 - 45 mm white load Smart technology robotic stapler. The jejunojejunostomy was found to be hemostatic. The enterotomy was closed after horizontal mattress stitch of 3-0 silk used to elevate the enterotomy followed by closure with the robotic stapler white load. The jejunal limb was temporarily tacked along the left upper quadrant. Attention was now brought to the creation of the gastrojejunostomy. A incarcerated fat-containing hiatal hernia was identified along the anterior hiatus and undisturbed during the procedure. Along the lesser curvature of the stomach between the second and third veins, dissection was made along the retrogastric space to allow first firing of the robotic staple. Next, along the greater curvature of the stomach window was created with direct transection of the gastric cardia from the rest of the stomach. A nasogastric tube was used to identify the proposed position of the Orvil. Blue and green loads of 45 mm staplers were used to divide the stomach to create the gastric pouch. The patient was then prepared for placement of a Orvil. The patient was Mallampati 2. A 25-mm Orvil was selected for placement by the nurse registered diet technician. The Orvil tubing was placed posterior to the staple line of the gastric pouch and brought out through the left inferior lateral port. I re-scrubbed into the case. The robotic arms were temporarily undocked. The Orvil was then carefully and successfully navigated with the help of the nurse registered diet technician into the gastric pouch. The sutures were identified and divided. The tubing was from the 25 mm anvil. As the Orvil had been placed, the blind jejunal limb was brought proximally into the upper abdomen. No torsion was found upon the Ronaldo limb. No tension was identified as the limb was brought along the upper abdomen. The blind jejunal limb was previously opened using endo -scissors with cautery. The 25-mm EEA stapler was brought through the left anterior lateral port site from the left side. The EEA stapler was brought through the open jejunal limb and its needle was deployed at the antimesenteric border where the anvil were mated for approximately 1 minute upon firing. The stapler was removed after irrigating the shaft of the instrument with warm normal saline. Donuts were found to be intact and on both sides. The da Jitendra Xi robot arms were then re-docked. I sat at the console. The open jejunal limb defect was closed using 45 mm white loads after releasing any tension from the blind jejunal limb. Care was taken to avoid any long blind limb to avoid candycane syndrome. Reinforcement sutures were placed along the gastrojejunal anastomosis and placed along the 9:00 and 3 o'clock position. The Eid and jejunojejunostomy mesenteric defects were obliterated by her intra-abdominal fat. I then went to the head of the bed to perform the esophagogastrojejunoscopy and a leak test. An Olympus gastroscope was passed along the posterior oropharynx which was unremarkable for any injury to the vocal cords. The scope was passed down to the proximal portion of the pouch, whereby no active bleeding was encountered. Excellent visualization of the gastrojejunostomy anastomosis, including the Ronaldo limb was encountered with endoscopic image obtained. The anastomosis was found to be patent. The gastrointestinal tract was desufflated. No evidence of intraoperative leak was encountered as the gastric pouch and anastomosis were submerged under normal saline solution. The robot was then undocked. I then went back to the bedside of the patient, whereby with coordinated effort of the assistant plant controller, irrigation was aspirated from the upper abdominal cavity. Tisseel was placed circumferentially over the anastomosis of the gastrojejunostomy. The fascial defect of the EEA stapler was closed using Carlos Romo and 0 Vicryl. All instruments and pneumoperitoneum were evacuated from the abdominal cavity. The port correlating with the EEA stapler device was cleansed with normal saline solution and hydrogen peroxide. The rest of incisions were reapproximated using 4-0 Monocryl in an interrupted subcuticular fashion. Local anesthetic was infiltrated along the skin for postop analgesia. Liquid glue was applied to the skin. OptiFoam dressing was placed along the EEA stapler site. At the end of the procedure, needle, sponge and instrument count had been verified correct by the surgical device sales representative. She had tolerated the procedure well and was extubated and taken to the postanesthesia unit in stable condition. Intraoperative findings were described to the patient's family who were very pleased with the level of care. Total console time 122 minutes Operative Findings: 1. Biliopancreatic limb 60 cm 2. Bypass performed using 100 cm ronaldo limb secondary to avoid increased tension at 150 cm. 3. Breewr defect and jejunojejunostomy defect obliterated by moderate intra- abdominal fat. 4. Leak test negative with gastrojejunal anastomosis patent and hemostatic. 5. Robotic staplers total of 15 combined blue and green and white 45 mm used to gastric pouch 6. Reinforcement sutures were placed along the gastrojejunal anastomosis 7. Severe adhesions along the right upper quadrant
[2017-12-17] MEDS ORDERED: diphenhydrAMINE 50 MG/ML 1 ML VIAL IVP ONE (19:00)
[2017-12-17] MEDS ORDERED: DEXAMETHASONE SOD PHOSPHATE 10 MG/ML 1 ML VIAL IV ONE (19:24)
[2017-12-17] MEDS ORDERED: METOCLOPRAMIDE 5 MG/ML 2 ML VIAL IVP ONE (19:45)
[2017-12-17] MEDS ORDERED: PROMETHAZINE INJ 25 MG/ML 1 ML VIAL IVPB ONE (20:15)
[2017-12-17] MEDS: ALBUTEROL NEBULIZED 2.5 MG/3 ML INHALATION SCH (20:30)
[2017-12-17] MEDS: 0.9% NACL WITH KCL 20 MEQ/L 1,000 ML IV SCH (20:49)
[2017-12-17] MEDS: METOCLOPRAMIDE 5 MG/ML 2 ML VIAL IVP SCH ×2 (21:11→23:51)
[2017-12-17 23:47] LABS: Glucose,Whole Blood 223 mg/dL (75-99)
[2017-12-17] MEDS: HYOSCYAMINE ORAL DROPS 1.875 MG/15 ML BOTTLE PO SCH (23:50)
[2017-12-17] MEDS: INSULIN ASPART 100 UNIT/ML 1 ML 10 ML VIAL SQ SCH (23:50)
[2017-12-17] MEDS: SIMETHICONE 40 MG/0.6 ML DROPS 2,000 MG/30 ML BOTTLE PO SCH (23:51)
[2017-12-17] MEDS: DEXAMETHASONE SOD PHOSPHATE 4 MG/ML 1 ML VIAL IV SCH (23:51)
[2017-12-18] MEDS ORDERED: AMPICILLIN-SULBACTAM 3 GM in SODIUM CHLORIDE 0.9% 100 ML IVPB SCH ×2
[2017-12-18 00:16] LABS: Glucose,Whole Blood 216 mg/dL (75-99)
[2017-12-18] MEDS: 0.9% NACL WITH KCL 20 MEQ/L 1,000 ML IV SCH ×2 (04:47→10:05)
[2017-12-18 05:33] LABS: Glucose,Whole Blood 287 mg/dL (75-99)
[2017-12-18] MEDS: SIMETHICONE 40 MG/0.6 ML DROPS 2,000 MG/30 ML BOTTLE PO SCH ×3 (05:37→17:56)
[2017-12-18] MEDS: METOCLOPRAMIDE 5 MG/ML 2 ML VIAL IVP SCH ×3 (05:37→17:55)
[2017-12-18] MEDS: HYOSCYAMINE ORAL DROPS 1.875 MG/15 ML BOTTLE PO SCH ×3 (05:37→17:56)
[2017-12-18] MEDS: DEXAMETHASONE SOD PHOSPHATE 4 MG/ML 1 ML VIAL IV SCH ×3 (05:37→17:55)
[2017-12-18] MEDS: INSULIN ASPART 100 UNIT/ML 1 ML 10 ML VIAL SQ SCH ×3 (05:38→17:56)
[2017-12-18] MEDS: LACTATED RINGERS 1,000 ML IV SCH (05:43)
[2017-12-18 07:29] LABS: Basophils % (A) 0 %; Eosinophils % (A) 0 %; HCT 41.8 % (34.0-46.0); HGB 12.9 gm/dL (11.4-16.0); Hypochromasia Slight; Lymphocytes # (A) 0.3 k/uL (1.0-4.8); Lymphocytes % (A) 2 %; MCH 27.5 pg (25.0-35.0); MCHC 30.9 g/dL (31.0-37.0); MCV 89.1 fL (80.0-100.0); Mean Platelet Volume 8.8; Monocytes # (A) 0.5 k/uL (0-1.0); Monocytes % (A) 3 %; Neutrophils # (A) 14.3 k/uL (1.3-7.7); Neutrophils % (A) 94 %; Platelet Count 155 k/uL (150-450); RBC 4.69 m/uL (3.80-5.40); RDW 15.8 % (11.5-15.5); WBC 15.1 k/uL (3.8-10.6)
[2017-12-18 07:38] LABS: Calcium 7.5 mg/dL (8.4-10.2); Phosphorus 3.2 mg/dL (2.5-4.5); Potassium 4.2 mmol/L (3.5-5.1)
[2017-12-18] MEDS: ONDANSETRON 4 MG/2 ML VIAL IVP PRN ×2 (08:20→20:07)
[2017-12-18] MEDS: ALBUTEROL NEBULIZED 2.5 MG/3 ML INHALATION SCH ×4 (08:49→20:55)
[2017-12-18] MEDS ORDERED: ENOXAPARIN 40 MG/0.4 ML SYRINGE SQ SCH (09:00)
[2017-12-18] MEDS: amLODIPine 10 MG TAB PO SCH (09:03)
[2017-12-18] MEDS: HYDROCHLOROTHIAZIDE 12.5 MG CAP PO SCH (09:03)
[2017-12-18] MEDS: LOSARTAN 50 MG TAB PO SCH (09:42)
[2017-12-18] MEDS: PANTOPRAZOLE 40 MG/10 ML VIAL IV SCH (09:42)
[2017-12-18] MEDS: METOPROLOL TARTRATE 50 MG TAB PO SCH (09:43)
[2017-12-18] MEDS ORDERED: SODIUM CHLORIDE 0.9% 1,000 ML IV ONE (11:24)
--- NOTE | 2017-12-18 11:24 | P.PN ---
<AndrewTrishaDaphney M - Last Filed: 12/18/17 14:43> Subjective Progress Note Date: 12/18/17 I 62-year-old female sitting up on the edge of the bed at the time of my exam patient is reportedly experiencing an nausea sensation dry heaves no active emesis. Patient states it's been persistent throughout the night. Lanier catheter was removed at 7 AM this morning currently has not voided. Patient states surgical pain being controlled with the current pain medication. Did note the white counts morning is 15.1 it was 9.7 on December 12 labs were noted and reviewed afebrile temp 97.9, heart rate this morning at 7 AM 100. On room air sats are 94%. Blood pressure 116/69. Patient states she has been up ambulating in the hallway this morning Patient did develop an episode of vomiting up blood this morning Patient is postop December 17 patient underwent robotic lysis of adhesions, robotic Immanuel-en-Y gastric bypass Intraoperative esophagogastrojejunoscopy. Objective - Vital Signs Vital signs: Vital Signs Temp 97.9 F 12/18/17 07:00 Pulse 104 H 12/18/17 07:47 Resp 16 12/18/17 07:47 BP 116/69 12/18/17 07:00 Pulse Ox 94 L 12/18/17 07:00 Intake & Output 12/17/17 12/18/17 12/18/17 18:59 06:59 18:59 Intake Total 1950 Output Total 220 800 900 Balance 1730 -800 -900 Weight 150.956 kg 150.956 kg Intake: IV 1950 Output: Urine 200 800 900 Uretheral (Lanier) 900 Estimated Blood Loss 20 Other: Voiding Method Indwelling Catheter - Exam Physical exam 62-year-old female sitting up on the edge of the bed reportedly experiencing an nausea sensation no active emesis. Patient states that she been experiencing dry heaves most of the night. Lungs adequate air movement bilaterally on room air Heart S1-S2 audible regular Abdomen obese soft surgical incision sites dry soft not distended surgical tenderness appropriate surgical dressings dry dry heaves noted no active emesis states not passing gas no stool has not urinated since Lanier was removed 1 hour ago Extremities no edema noted - Labs CBC & Chem 7: 12/18/17 11:58 12/18/17 06:37 Labs: Abnormal Lab Results - Last 24 Hours (Table) 12/17/17 12/17/17 12/17/17 Range/Units 13:44 18:45 23:45 WBC (3.8-10.6) k/uL MCHC (31.0-37.0) g/dL RDW (11.5-15.5) % Neutrophils # (1.3-7.7) k/uL Lymphocytes # (1.0-4.8) k/uL Carbon Dioxide (22-30) mmol/L BUN (7-17) mg/dL POC Glucose (mg/dL) 72 L 168 H 223 H (75-99) mg/dL Calcium (8.4-10.2) mg/dL 12/18/17 12/18/17 12/18/17 Range/Units 00:15 05:30 06:37 WBC 15.1 H (3.8-10.6) k/uL MCHC 30.9 L (31.0-37.0) g/dL RDW 15.8 H (11.5-15.5) % Neutrophils # 14.3 H (1.3-7.7) k/uL Lymphocytes # 0.3 L (1.0-4.8) k/uL Carbon Dioxide (22-30) mmol/L BUN (7-17) mg/dL POC Glucose (mg/dL) 216 H 287 H (75-99) mg/dL Calcium (8.4-10.2) mg/dL 12/18/17 Range/Units 06:37 WBC (3.8-10.6) k/uL MCHC (31.0-37.0) g/dL RDW (11.5-15.5) % Neutrophils # (1.3-7.7) k/uL Lymphocytes # (1.0-4.8) k/uL Carbon Dioxide 21 L (22-30) mmol/L BUN 20 H (7-17) mg/dL POC Glucose (mg/dL) (75-99) mg/dL Calcium 7.5 L (8.4-10.2) mg/dL Assessment and Plan Assessment: Impression Status post December 17 robotic-assisted laparoscopic lysis of adhesions, robotic [laparoscopic Immanuel-en-Y gastric bypass, for morbid obesity Morbid obesity due to excess calories BMI 63 down to 61 Esophageal reflux disease Obstructive sleep apnea Depressive disorder Type 2 diabetes insulin-dependent Osteoarthritis involving bilateral hips and bilateral knees Vitamin D deficiency Iron deficiency anemia Peritoneal adhesions midline and right upper quadrant from previous open cholecystectomy Hypothyroid on supplements Leukocytosis suspect reactive Plan Continue postop bariatric care Monitor urinary output after Lanier has been removed Anti-emetics as ordered DVT and GI prophylaxis Encourage use of incentive spirometer Pain control Follow-up on upper GI currently pending Nothing by mouth except ice chips further recommendations pending The above impression and plan of care have been discussed and directed by signing physician. Daphney Morales nurse practitioner acting as scribe for signing physician. <Qian Murray N - Last Filed: 12/19/17 07:37> Objective - Vital Signs Vital signs: Vital Signs Temp 98.4 F 12/19/17 07:00 Pulse 73 12/19/17 07:00 Resp 14 12/19/17 07:00 BP 118/74 12/19/17 07:00 Pulse Ox 92 L 12/19/17 07:00 Intake & Output 12/18/17 12/19/17 12/19/17 18:59 06:59 18:59 Output Total 1400 300 Balance -1400 -300 Weight 150.956 kg Output: Urine 1200 Uretheral (Lanier) 900 Stool 100 Emesis 200 200 Other: Voiding Method Toilet # Voids 3 2 - Labs CBC & Chem 7: 12/18/17 11:58 12/18/17 06:37 Labs: Abnormal Lab Results - Last 24 Hours (Table) 12/18/17 12/18/17 12/18/17 Range/Units 06:37 06:37 06:37 WBC 15.1 H (3.8-10.6) k/uL MCHC 30.9 L (31.0-37.0) g/dL RDW 15.8 H (11.5-15.5) % Neutrophils # 14.3 H (1.3-7.7) k/uL Lymphocytes # 0.3 L (1.0-4.8) k/uL Carbon Dioxide 21 L (22-30) mmol/L BUN 20 H (7-17) mg/dL POC Glucose (mg/dL) (75-99) mg/dL Hemoglobin A1c 8.1 H (4.0-6.0) % Calcium 7.5 L (8.4-10.2) mg/dL 12/18/17 12/18/17 12/18/17 Range/Units 11:43 11:58 17:20 WBC 17.8 H (3.8-10.6) k/uL MCHC (31.0-37.0) g/dL RDW 16.0 H (11.5-15.5) % Neutrophils # 16.8 H (1.3-7.7) k/uL Lymphocytes # 0.4 L (1.0-4.8) k/uL Carbon Dioxide (22-30) mmol/L BUN (7-17) mg/dL POC Glucose (mg/dL) 240 H 240 H (75-99) mg/dL Hemoglobin A1c (4.0-6.0) % Calcium (8.4-10.2) mg/dL 12/19/17 12/19/17 Range/Units 01:09 05:58 WBC (3.8-10.6) k/uL MCHC (31.0-37.0) g/dL RDW (11.5-15.5) % Neutrophils # (1.3-7.7) k/uL Lymphocytes # (1.0-4.8) k/uL Carbon Dioxide (22-30) mmol/L BUN (7-17) mg/dL POC Glucose (mg/dL) 283 H 217 H (75-99) mg/dL Hemoglobin A1c (4.0-6.0) % Calcium (8.4-10.2) mg/dL Assessment and Plan Plan: Patient seen and evaluated. She reports feeling better after emesis following UGI. I spoke to radiologist of the findings. EGD intraop showed patency of anastomosis. Likely edema following post-op nausea and vomiting. She denies any abdominal distention or increased abdominal pain. As patient clinically feels better, will continue to observe. Ice chips and medications only.
[2017-12-18 11:44] LABS: Glucose,Whole Blood 240 mg/dL (75-99)
--- NOTE | 2017-12-18 11:51 | FL ---
"EXAMINATION TYPE: FL UGI DATE OF EXAM: 12/18/2017 COMPARISON: NONE HISTORY: Status post Immanuel-en-Y surgery 1.32 minutes fluoroscopy time, 4 fluoroscopic images document the procedure Patient received 25 mL Isovue orally. Contrast courses to the level of the gastroesophageal junction where there is air present, likely pos toperative. No extravasation is evident. Contrast courses to the left upper quadrant where there is a contrast fluid level. Contrast has not advanced distal to this level. An additional air-fluid level is seen at the level of the left hemidiaphragm. IMPRESSION: There is obstruction of the contrast column. Distended contrast-filled structure noted in the left upper quadrant. Additional findings above. A Red level critical message alert has been initiated for Qian Murray MD via the [facility] | Critical Results System on 12/18/2017 11:48 AM. This message alert has been sent to Qian crowe MD via the preferences provided by the clinician for the receipt of Radiology Critical Finding s. Message ID [id number]."
[2017-12-18 12:34] LABS: Basophils % (A) 0 %; Eosinophils % (A) 0 %; HCT 44.3 % (34.0-46.0); HGB 13.8 gm/dL (11.4-16.0); Hypochromasia Slight; Lymphocytes # (A) 0.4 k/uL (1.0-4.8); Lymphocytes % (A) 2 %; MCH 27.9 pg (25.0-35.0); MCHC 31.1 g/dL (31.0-37.0); MCV 89.9 fL (80.0-100.0); Mean Platelet Volume 8.9; Monocytes # (A) 0.6 k/uL (0-1.0); Monocytes % (A) 3 %; Neutrophils # (A) 16.8 k/uL (1.3-7.7); Neutrophils % (A) 94 %; Platelet Count 193 k/uL (150-450); RBC 4.93 m/uL (3.80-5.40); WBC 17.8 k/uL (3.8-10.6)
[2017-12-18 14:18] LABS: Hemoglobin A1C 8.1 % (4.0-6.0)
[2017-12-18 17:23] LABS: Glucose,Whole Blood 240 mg/dL (75-99)
[2017-12-19 01:14] LABS: Glucose,Whole Blood 283 mg/dL (75-99)
[2017-12-19] MEDS: HYOSCYAMINE ORAL DROPS 1.875 MG/15 ML BOTTLE PO SCH ×4 (01:45→18:04)
[2017-12-19] MEDS: METOCLOPRAMIDE 5 MG/ML 2 ML VIAL IVP SCH ×4 (01:46→18:04)
[2017-12-19] MEDS: INSULIN ASPART 100 UNIT/ML 1 ML 10 ML VIAL SQ SCH ×5 (01:46→21:22)
[2017-12-19] MEDS: SIMETHICONE 40 MG/0.6 ML DROPS 2,000 MG/30 ML BOTTLE PO SCH ×4 (01:47→18:04)
[2017-12-19] MEDS: DEXAMETHASONE SOD PHOSPHATE 4 MG/ML 1 ML VIAL IV SCH ×4 (01:47→18:04)
[2017-12-19] MEDS: 0.9% NACL WITH KCL 20 MEQ/L 1,000 ML IV SCH ×3 (02:22→15:37)
[2017-12-19] MEDS: LACTATED RINGERS 1,000 ML IV SCH (05:43)
[2017-12-19 06:01] LABS: Glucose,Whole Blood 217 mg/dL (75-99)
[2017-12-19] MEDS ORDERED: BISACODYL 5 MG TABLET.DR PO PRN (08:00)
--- NOTE | 2017-12-19 08:21 | P.PN ---
<Daphney Morales - Last Filed: 12/19/17 08:21> Subjective Progress Note Date: 12/19/17 62-year-old female seen and examined at the bedside. Patient is sedated did receive IV dilaudid during the night for frequent coughing with generalized abdominal pain per nursing. Currently is arousable to verbal stimuli only surgical dressing sites dry abdomen obese soft not distended reportedly is urinating no difficulty nursing reports that at 9:00 last night patient did cough up bloody secretions Labs pending postop December 17 patient underwent robotic lysis of adhesions, robotic Immanuel- en-Y gastric bypass Intraoperative esophagogastrojejunoscopy. Objective - Vital Signs Vital signs: Vital Signs Temp 98.4 F 12/19/17 07:00 Pulse 73 12/19/17 07:00 Resp 14 12/19/17 07:00 BP 118/74 12/19/17 07:00 Pulse Ox 92 L 12/19/17 07:00 Intake & Output 12/18/17 12/19/17 12/19/17 18:59 06:59 18:59 Output Total 1400 300 Balance -1400 -300 Weight 150.956 kg Output: Urine 1200 Uretheral (Lanier) 900 Stool 100 Emesis 200 200 Other: Voiding Method Toilet # Voids 3 2 - Exam Physical exam 62-year-old female arousable to verbal stimuli will open eyes sedated after receiving IV dilaudid for pain during the night Lungs anterior clear on room air no shortness of breath Heart S1-S2 audible regular Abdomen obese soft not distended nontender surgical dressings dry reportedly urinating no difficulty no reports of nausea vomiting a few hypoactive bowel tones Extremities Venodyne's on to the bilateral lower extremities - Labs CBC & Chem 7: 12/18/17 11:58 12/18/17 06:37 Labs: Abnormal Lab Results - Last 24 Hours (Table) 12/18/17 12/18/17 12/18/17 Range/Units 06:37 11:43 11:58 WBC 17.8 H (3.8-10.6) k/uL RDW 16.0 H (11.5-15.5) % Neutrophils # 16.8 H (1.3-7.7) k/uL Lymphocytes # 0.4 L (1.0-4.8) k/uL POC Glucose (mg/dL) 240 H (75-99) mg/dL Hemoglobin A1c 8.1 H (4.0-6.0) % 12/18/17 12/19/17 12/19/17 Range/Units 17:20 01:09 05:58 WBC (3.8-10.6) k/uL RDW (11.5-15.5) % Neutrophils # (1.3-7.7) k/uL Lymphocytes # (1.0-4.8) k/uL POC Glucose (mg/dL) 240 H 283 H 217 H (75-99) mg/dL Hemoglobin A1c (4.0-6.0) % Assessment and Plan Assessment: Impression Status post December 17 robotic-assisted laparoscopic lysis of adhesions, robotic [laparoscopic Immanuel-en-Y gastric bypass, for morbid obesity Morbid obesity due to excess calories BMI 63 down to 61 Esophageal reflux disease Obstructive sleep apnea Depressive disorder Type 2 diabetes insulin-dependent Osteoarthritis involving bilateral hips and bilateral knees Vitamin D deficiency Iron deficiency anemia Peritoneal adhesions midline and right upper quadrant from previous open cholecystectomy Hypothyroid on supplements Leukocytosis suspect reactive Plan Continue postop bariatric care Monitor urinary output after Lanier has been removed Anti-emetics as ordered DVT and GI prophylaxis Encourage use of incentive spirometer Pain control Nothing by mouth except ice chips and meds further recommendations pending Follow-up on pending lab Stop IV Dilaudid use [place] elixir as needed for pain The above impression and plan of care have been discussed and directed by signing physician. Daphney Morales nurse practitioner acting as scribe for signing physician. <Qian Murray N - Last Filed: 12/19/17 18:43> Objective - Vital Signs Vital signs: Vital Signs Temp 98.5 F 12/19/17 15:00 Pulse 71 12/19/17 15:00 Resp 16 12/19/17 15:00 BP 109/70 12/19/17 15:00 Pulse Ox 92 L 12/19/17 15:00 Intake & Output 12/18/17 12/19/17 12/19/17 18:59 06:59 18:59 Output Total 1400 300 Balance -1400 -300 Weight 150.956 kg 150.956 kg Output: Urine 1200 Uretheral (Lanier) 900 Stool 100 Emesis 200 200 Other: Voiding Method Toilet Toilet # Voids 3 2 2 - Labs CBC & Chem 7: 12/19/17 15:14 12/19/17 07:50 Labs: Abnormal Lab Results - Last 24 Hours (Table) 12/19/17 12/19/17 12/19/17 Range/Units 01:09 05:58 07:50 WBC (3.8-10.6) k/uL Hgb (11.4-16.0) gm/dL RDW (11.5-15.5) % Plt Count (150-450) k/uL Neutrophils # (1.3-7.7) k/uL Lymphocytes # (1.0-4.8) k/uL Chloride 111 H (98-107) mmol/L Glucose 203 H (74-99) mg/dL POC Glucose (mg/dL) 283 H 217 H (75-99) mg/dL Calcium 7.1 L (8.4-10.2) mg/dL 12/19/17 12/19/17 12/19/17 Range/Units 07:50 12:03 15:14 WBC 15.9 H 16.2 H (3.8-10.6) k/uL Hgb 11.1 L 11.2 L (11.4-16.0) gm/dL RDW 16.4 H 16.5 H (11.5-15.5) % Plt Count 143 L (150-450) k/uL Neutrophils # 14.8 H 15.2 H (1.3-7.7) k/uL Lymphocytes # 0.3 L 0.4 L (1.0-4.8) k/uL Chloride (98-107) mmol/L Glucose (74-99) mg/dL POC Glucose (mg/dL) 195 H (75-99) mg/dL Calcium (8.4-10.2) mg/dL 12/19/17 Range/Units 17:55 WBC (3.8-10.6) k/uL Hgb (11.4-16.0) gm/dL RDW (11.5-15.5) % Plt Count (150-450) k/uL Neutrophils # (1.3-7.7) k/uL Lymphocytes # (1.0-4.8) k/uL Chloride (98-107) mmol/L Glucose (74-99) mg/dL POC Glucose (mg/dL) 208 H (75-99) mg/dL Calcium (8.4-10.2) mg/dL Assessment and Plan Plan: Her nausea has completely resolved. She denies any bloating. Documentation error noted as patient did not have a bowel movement. Nursing information reviewed for correction. She reports adverse reaction to albuterol inhalers. She is urinating clear urine. Plan for bariatric clears, stop decadron, stop albuterol, possible discharge tomorrow
[2017-12-19 08:35] LABS: Anisocytosis Slight; Basophils % (A) 0 %; Calcium 7.1 mg/dL (8.4-10.2); Eosinophils % (A) 0 %; HCT 34.9 % (34.0-46.0); HGB 11.1 gm/dL (11.4-16.0); Hypochromasia Slight; Lymphocytes # (A) 0.3 k/uL (1.0-4.8); Lymphocytes % (A) 2 %; MCH 28.4 pg (25.0-35.0); MCHC 31.8 g/dL (31.0-37.0); MCV 89.5 fL (80.0-100.0); Mean Platelet Volume 8.9; Monocytes # (A) 0.6 k/uL (0-1.0); Monocytes % (A) 4 %; Neutrophils # (A) 14.8 k/uL (1.3-7.7); Neutrophils % (A) 93 %; Platelet Count 162 k/uL (150-450); Potassium 4.4 mmol/L (3.5-5.1); RDW 16.4 % (11.5-15.5); WBC 15.9 k/uL (3.8-10.6)
[2017-12-19] MEDS: ALBUTEROL NEBULIZED 2.5 MG/3 ML INHALATION SCH ×3 (09:10→16:12)
[2017-12-19 09:39] VITALS: BMI 57.1
[2017-12-19] MEDS: METOPROLOL TARTRATE 50 MG TAB PO SCH (09:57)
[2017-12-19] MEDS: LOSARTAN 50 MG TAB PO SCH (09:57)
[2017-12-19] MEDS: HYDROCHLOROTHIAZIDE 12.5 MG CAP PO SCH (09:57)
[2017-12-19] MEDS: amLODIPine 10 MG TAB PO SCH (09:57)
[2017-12-19] MEDS: PANTOPRAZOLE 40 MG/10 ML VIAL IV SCH (10:02)
[2017-12-19 12:05] LABS: Glucose,Whole Blood 195 mg/dL (75-99)
[2017-12-19] MEDS ORDERED: LOSARTAN 50 MG TAB PO ONE (12:30)
[2017-12-19] MEDS ORDERED: amLODIPine 10 MG TAB PO ONE (12:30)
[2017-12-19] MEDS ORDERED: HYDROCHLOROTHIAZIDE 12.5 MG CAP PO ONE (12:30)
[2017-12-19] MEDS ORDERED: METOPROLOL TARTRATE 50 MG TAB PO ONE (12:30)
[2017-12-19 15:43] LABS: Anisocytosis Slight; Basophils % (A) 0 %; Eosinophils # (A) 0.1 k/uL (0-0.7); Eosinophils % (A) 1 %; HCT 34.8 % (34.0-46.0); HGB 11.2 gm/dL (11.4-16.0); Hypochromasia Slight; Lymphocytes # (A) 0.4 k/uL (1.0-4.8); Lymphocytes % (A) 3 %; MCH 28.4 pg (25.0-35.0); MCHC 32.1 g/dL (31.0-37.0); MCV 88.5 fL (80.0-100.0); Mean Platelet Volume 9.2; Monocytes # (A) 0.4 k/uL (0-1.0); Monocytes % (A) 3 %; Neutrophils # (A) 15.2 k/uL (1.3-7.7); Neutrophils % (A) 94 %; Platelet Count 143 k/uL (150-450); RBC 3.94 m/uL (3.80-5.40); RDW 16.5 % (11.5-15.5); WBC 16.2 k/uL (3.8-10.6)
[2017-12-19 17:57] LABS: Glucose,Whole Blood 208 mg/dL (75-99)
[2017-12-19] MEDS ORDERED: SODIUM CHLORIDE 0.9% 1,000 ML IV ONE (18:13)
[2017-12-19 21:19] LABS: Glucose,Whole Blood 192 mg/dL (75-99)
[2017-12-20] MEDS: METOCLOPRAMIDE 5 MG/ML 2 ML VIAL IVP SCH ×3 (01:28→13:00)
[2017-12-20] MEDS: HYOSCYAMINE ORAL DROPS 1.875 MG/15 ML BOTTLE PO SCH ×3 (01:28→13:01)
[2017-12-20] MEDS: SIMETHICONE 40 MG/0.6 ML DROPS 2,000 MG/30 ML BOTTLE PO SCH ×3 (01:28→13:00)
[2017-12-20] MEDS: 0.9% NACL WITH KCL 20 MEQ/L 1,000 ML IV SCH ×2 (01:29→14:28)
[2017-12-20 03:35] VITALS: RESP 16
[2017-12-20] MEDS: INSULIN ASPART 100 UNIT/ML 1 ML 10 ML VIAL SQ SCH ×3 (04:59→13:02)
[2017-12-20 07:08] LABS: Anisocytosis Slight; Basophils % (A) 0 %; Eosinophils % (A) 0 %; HCT 34.7 % (34.0-46.0); HGB 10.5 gm/dL (11.4-16.0); Hypochromasia Slight; Lymphocytes # (A) 0.6 k/uL (1.0-4.8); Lymphocytes % (A) 5 %; MCH 27.4 pg (25.0-35.0); MCHC 30.3 g/dL (31.0-37.0); MCV 90.2 fL (80.0-100.0); Mean Platelet Volume 8.1; Monocytes # (A) 0.6 k/uL (0-1.0); Monocytes % (A) 4 %; Neutrophils # (A) 11.7 k/uL (1.3-7.7); Neutrophils % (A) 90 %; Platelet Count 153 k/uL (150-450); RBC 3.85 m/uL (3.80-5.40); RDW 16.5 % (11.5-15.5); WBC 12.9 k/uL (3.8-10.6)
[2017-12-20 07:12] LABS: Glucose,Whole Blood 184 mg/dL (75-99)
[2017-12-20 07:34] LABS: Anion Gap 6 mmol/L; Blood Urea Nitrogen 21 mg/dL (7-17); Calcium 6.9 mg/dL (8.4-10.2); Carbon Dioxide 26 mmol/L (22-30); Chloride 110 mmol/L (98-107); Glucose 188 mg/dL (74-99); Potassium 4.5 mmol/L (3.5-5.1); Sodium 142 mmol/L (137-145)
[2017-12-20] MEDS: amLODIPine 10 MG TAB PO SCH (08:44)
[2017-12-20] MEDS: HYDROCHLOROTHIAZIDE 12.5 MG CAP PO SCH (08:45)
[2017-12-20] MEDS: METOPROLOL TARTRATE 50 MG TAB PO SCH (08:45)
[2017-12-20] MEDS: PANTOPRAZOLE 40 MG/10 ML VIAL IV SCH (08:45)
[2017-12-20] MEDS: LOSARTAN 50 MG TAB PO SCH (08:55)
--- NOTE | 2017-12-20 09:09 | P.PN ---
<Trisha Moralesne M - Last Filed: 12/20/17 09:00> Subjective Progress Note Date: 12/20/17 62-year-old female resting in bed. Patient states she was up ambulating yesterday in the hallway twice. No bowel movement. States her last bowel movement was Sunday. "Have episodes at home of constipation". No further episodes of coughing up any blood. Tolerating bariatric clear diet states the nausea sensation has resolved. Labs white count 12.9 hemoglobin 10.5 afebrile postop December 17 patient underwent robotic lysis of adhesions, robotic Immanuel- en-Y gastric bypass Intraoperative esophagogastrojejunoscopy. Objective - Vital Signs Vital signs: Vital Signs Temp 97.6 F 12/20/17 07:36 Pulse 90 12/20/17 07:36 Resp 16 12/20/17 07:36 BP 138/80 12/20/17 07:36 Pulse Ox 93 L 12/20/17 07:36 Intake & Output 12/19/17 12/20/17 12/20/17 18:59 06:59 18:59 Weight 150.956 kg Other: Voiding Method Toilet # Voids 2 1 - Exam Physical exam 62-year-old female resting in bed. No new events noted. Appears in no acute distress Lungs adequate air movement bilaterally on room air sats are 93% Heart S1-S2 audible regular Abdomen obese soft nondistended nontender surgical dressing sites dry urinating no difficulty no stool reports a nausea sensation resolved bowel tones noted Extremities no edema noted - Labs CBC & Chem 7: 12/20/17 06:39 12/20/17 06:39 Labs: Abnormal Lab Results - Last 24 Hours (Table) 12/19/17 12/19/17 12/19/17 Range/Units 12:03 15:14 17:55 WBC 16.2 H (3.8-10.6) k/uL Hgb 11.2 L (11.4-16.0) gm/dL MCHC (31.0-37.0) g/dL RDW 16.5 H (11.5-15.5) % Plt Count 143 L (150-450) k/uL Neutrophils # 15.2 H (1.3-7.7) k/uL Lymphocytes # 0.4 L (1.0-4.8) k/uL Chloride (98-107) mmol/L BUN (7-17) mg/dL Glucose (74-99) mg/dL POC Glucose (mg/dL) 195 H 208 H (75-99) mg/dL Calcium (8.4-10.2) mg/dL 12/19/17 12/20/17 12/20/17 Range/Units 21:16 06:39 06:39 WBC 12.9 H (3.8-10.6) k/uL Hgb 10.5 L (11.4-16.0) gm/dL MCHC 30.3 L (31.0-37.0) g/dL RDW 16.5 H (11.5-15.5) % Plt Count (150-450) k/uL Neutrophils # 11.7 H (1.3-7.7) k/uL Lymphocytes # 0.6 L (1.0-4.8) k/uL Chloride 110 H (98-107) mmol/L BUN 21 H (7-17) mg/dL Glucose 188 H (74-99) mg/dL POC Glucose (mg/dL) 192 H (75-99) mg/dL Calcium 6.9 L (8.4-10.2) mg/dL 12/20/17 Range/Units 07:01 WBC (3.8-10.6) k/uL Hgb (11.4-16.0) gm/dL MCHC (31.0-37.0) g/dL RDW (11.5-15.5) % Plt Count (150-450) k/uL Neutrophils # (1.3-7.7) k/uL Lymphocytes # (1.0-4.8) k/uL Chloride (98-107) mmol/L BUN (7-17) mg/dL Glucose (74-99) mg/dL POC Glucose (mg/dL) 184 H (75-99) mg/dL Calcium (8.4-10.2) mg/dL Assessment and Plan Assessment: Impression Status post December 17 robotic-assisted laparoscopic lysis of adhesions, robotic [laparoscopic Immanuel-en-Y gastric bypass, for morbid obesity Morbid obesity due to excess calories BMI 63 down to 61 Esophageal reflux disease Obstructive sleep apnea Depressive disorder Type 2 diabetes insulin-dependent Osteoarthritis involving bilateral hips and bilateral knees Vitamin D deficiency Iron deficiency anemia Peritoneal adhesions midline and right upper quadrant from previous open cholecystectomy Hypothyroid on supplements Leukocytosis suspect reactive Plan Continue postop bariatric care Dulcolax 15 mg when necessary daily Anti-emetics as ordered DVT and GI prophylaxis Encourage use of incentive spirometer Pain control Follow-up on pending lab [place] elixir as needed for pain The above impression and plan of care have been discussed and directed by signing physician. Daphney Morales nurse practitioner acting as scribe for signing physician. <Qian Murray - Last Filed: 12/20/17 20:30> Objective - Vital Signs Vital signs: Vital Signs Temp 98.1 F 12/20/17 15:00 Pulse 65 12/20/17 15:00 Resp 16 12/20/17 15:00 BP 122/75 12/20/17 15:00 Pulse Ox 94 L 12/20/17 15:00 Intake & Output 12/20/17 12/20/17 12/21/17 06:59 18:59 06:59 Intake Total 800 Balance 800 Intake: IV 800 0.9% NaCl with KCl 20 Meq 800 /l 1,000 ml @ 100 mls/hr IV .[facility] Rx#: [id number] Other: Voiding Method Toilet # Voids 1 2 - Labs CBC & Chem 7: 12/20/17 06:39 12/20/17 06:39 Labs: Abnormal Lab Results - Last 24 Hours (Table) 12/19/17 12/20/17 12/20/17 Range/Units 21:16 06:39 06:39 WBC 12.9 H (3.8-10.6) k/uL Hgb 10.5 L (11.4-16.0) gm/dL MCHC 30.3 L (31.0-37.0) g/dL RDW 16.5 H (11.5-15.5) % Neutrophils # 11.7 H (1.3-7.7) k/uL Lymphocytes # 0.6 L (1.0-4.8) k/uL Chloride 110 H (98-107) mmol/L BUN 21 H (7-17) mg/dL Glucose 188 H (74-99) mg/dL POC Glucose (mg/dL) 192 H (75-99) mg/dL Calcium 6.9 L (8.4-10.2) mg/dL 12/20/17 12/20/17 12/20/17 Range/Units 07:01 11:48 17:05 WBC (3.8-10.6) k/uL Hgb (11.4-16.0) gm/dL MCHC (31.0-37.0) g/dL RDW (11.5-15.5) % Neutrophils # (1.3-7.7) k/uL Lymphocytes # (1.0-4.8) k/uL Chloride (98-107) mmol/L BUN (7-17) mg/dL Glucose (74-99) mg/dL POC Glucose (mg/dL) 184 H 152 H 147 H (75-99) mg/dL Calcium (8.4-10.2) mg/dL
[2017-12-20] MEDS ORDERED: BISACODYL 5 MG TABLET.DR PO PRN (09:23)
[2017-12-20 11:51] LABS: Glucose,Whole Blood 152 mg/dL (75-99)
[2017-12-20] MEDS: LACTATED RINGERS 1,000 ML IV SCH (11:59)
[2017-12-20 15:03] VITALS: BP 122/75; PULSE 65; TEMP 98.1
[2017-12-20 17:06] LABS: Glucose,Whole Blood 147 mg/dL (75-99)
--- NOTE | 2017-12-20 20:30 | P.DS ---
Providers Date of admission: 12/17/17 11:43 Expected date of discharge: 12/20/17 Attending physician: Qian Murray Primary care physician: Stephy Harris Plan - Discharge Summary Discharge Rx Participant: Yes New Discharge Prescriptions: New Bisacodyl [Dulcolax] 5 mg PO DAILY PRN #10 tablet.dr PRN Reason: Constipation Ondansetron Odt [Zofran Odt] 4 mg PO Q8HR PRN #9 tab PRN Reason: Nausea Simethicone 40 mg/0.6 ml Drops [Mylicon Drops] 40 mg PO PCHS PRN #30 ml PRN Reason: Gas HYDROcodone/APAP [[place] Elixir 7.5-325Mg/15Ml] 15 ml PO Q6H PRN #280 solution PRN Reason: Pain Continue Omeprazole [PriLOSEC] 20 mg PO AC-BID amLODIPine [Norvasc] 10 mg PO QAM Irbesartan/Hydrochlorothiazide [Avalide 300-12.5 mg Tablet] 1 tab PO DAILY Insulin Glargine [Lantus] 72 unit SQ HS INSULIN LISPRO (HumaLOG) [humaLOG] 18 unit SQ AC-BRKFST INSULIN LISPRO (humaLOG) [humaLOG] 24 units SQ AC-SUPPER INSULIN LISPRO (humaLOG) [humaLOG] 20 units SQ AC-LUNCH Levothyroxine Sodium [Synthroid] 25 mcg PO DAILY Levothyroxine Sodium [Synthroid] 200 mcg PO DAILY Metoprolol Tartrate [Lopressor] 50 mg PO DAILY Discontinued Cetirizine HCl [Zyrtec] 10 mg PO DAILY buPROPion HCL [Wellbutrin XL] 300 mg PO DAILY Atorvastatin [Lipitor] 80 mg PO DAILY Aspirin EC [Ecotrin Low Dose] 81 mg PO DAILY Calcium Citrate/Vitamin D3 [Calcium Cit 315-Vit D3 250mg Tab] 1 tab PO DAILY methylPREDNISolone Dose Pack [Medrol Dose Pack] See Taper PO DIRECTED Discharge Medication List INSULIN LISPRO (HumaLOG) [humaLOG] 18 unit SQ AC-BRKFST 03/10/16 [History] Insulin Glargine [Lantus] 72 unit SQ HS 03/10/16 [History] Irbesartan/Hydrochlorothiazide [Avalide 300-12.5 mg Tablet] 1 tab PO DAILY 03/10 [History] Omeprazole [PriLOSEC] 20 mg PO AC-BID 03/10/16 [History] amLODIPine [Norvasc] 10 mg PO QAM 03/10/16 [History] INSULIN LISPRO (humaLOG) [humaLOG] 20 units SQ AC-LUNCH 03/20/17 [History] INSULIN LISPRO (humaLOG) [humaLOG] 24 units SQ AC-SUPPER 03/20/17 [History] Levothyroxine Sodium [Synthroid] 25 mcg PO DAILY 05/04/17 [History] Levothyroxine Sodium [Synthroid] 200 mcg PO DAILY 05/04/17 [History] Metoprolol Tartrate [Lopressor] 50 mg PO DAILY 05/04/17 [History] Bisacodyl [Dulcolax] 5 mg PO DAILY PRN #10 tablet. 12/20/17 [Rx] HYDROcodone/APAP [[place] Elixir 7.5-325Mg/15Ml] 15 ml PO Q6H PRN #280 solution [Rx] Ondansetron Odt [Zofran Odt] 4 mg PO Q8HR PRN #9 tab 12/20/17 [Rx] Simethicone 40 mg/0.6 ml Drops [Mylicon Drops] 40 mg PO PCHS PRN #30 ml [Rx] Follow up Appointment(s)/Referral(s): [facility],. [NON-STAFF] - 12/21/17 10:00 am Patient Instructions/Handouts: Nutrition after Bariatric Surgery (DC), Immanuel-en- Y Gastric Bypass (DC) Activity/Diet/Wound Care/Special Instructions: No lifting over 4 pounds in 4 weeks. May shower. No bath tub soaks. Please check blood sugar glucose. Do not take insulin if blood sugars under 150. Discharge Disposition: HOME SELF-CARE
== END 2017-12-20 17:24 | disposition home or self-care (01) | DRG 620 ==
LOC: 2ORMAIN 11:43 → 3SUR 18:32
PROVIDERS: ADMIT Surgery Plastic and Reconstructive Surgery; ATTEND Surgery Plastic and Reconstructive Surgery
PROC: 8E0W0CZ Robotic Assisted Procedure of Trunk Region, Open Approach (ICD-10-PCS; principal; 2017-12-17 13:45)
PROC: 0D160ZA Bypass Stomach to Jejunum, Open Approach (ICD-10-PCS; principal; 2017-12-17 13:45)
PROC: 0DNU0ZZ Release Omentum, Open Approach (ICD-10-PCS; principal; 2017-12-17 13:45)
PROC: 0DJ08ZZ Inspection of Upper Intestinal Tract, Via Natural or Artificial Opening Endoscopic (ICD-10-PCS; principal; 2017-12-17 13:45)
DX: E66.01 Morbid (severe) obesity due to excess calories (principal); K92.0 Hematemesis; D50.9 Iron deficiency anemia, unspecified; D72.829 Elevated white blood cell count, unspecified; E11.9 Type 2 diabetes mellitus without complications; E55.9 Vitamin D deficiency, unspecified; E78.5 Hyperlipidemia, unspecified; E89.0 Postprocedural hypothyroidism; F32.9 Major depressive disorder, single episode, unspecified; G47.33 Obstructive sleep apnea (adult) (pediatric); I10 Essential (primary) hypertension; K21.9 Gastro-esophageal reflux disease without esophagitis; K44.9 Diaphragmatic hernia without obstruction or gangrene; K66.0 Peritoneal adhesions (postprocedural) (postinfection); M16.0 Bilateral primary osteoarthritis of hip; M17.0 Bilateral primary osteoarthritis of knee; Z68.44 Body mass index [BMI] 60.0-69.9, adult; Z79.4 Long term (current) use of insulin; Z80.3 Family history of malignant neoplasm of breast; Z83.3 Family history of diabetes mellitus; Z87.891 Personal history of nicotine dependence; Z90.5 Acquired absence of kidney; Z90.49 Acquired absence of other specified parts of digestive tract; Z88.8 Allergy status to other drugs, medicaments and biological substances
CPT/HCPCS: 74240; 80048; 80051; 82310; 82565; 83036; 83735; 84100; 84520; 85025; 86850; 86900; 86901; 94640; 94760; 94762

== ENCOUNTER → 2017-12-28 | Outpatient (CLI) | payer OTHER ==
[2017-12-28 12:05] LABS: Anisocytosis Slight; HCT 32.3 % (34.0-46.0); HGB 10.1 gm/dL (11.4-16.0); Hypochromasia Moderate; MCH 28.6 pg (25.0-35.0); MCHC 31.4 g/dL (31.0-37.0); MCV 91.1 fL (80.0-100.0); Mean Platelet Volume 7.5; Platelet Count 207 k/uL (150-450); RBC 3.54 m/uL (3.80-5.40); RDW 16.8 % (11.5-15.5); WBC 6.6 k/uL (3.8-10.6)
== END ==
LOC: LABWHC1 10:57
PROVIDERS: ATTEND Surgery Plastic and Reconstructive Surgery
DX: Z48.815 Encounter for surgical aftercare following surgery on the digestive system (principal); E66.01 Morbid (severe) obesity due to excess calories; Z98.84 Bariatric surgery status
CPT/HCPCS: 36415; 85027

== ENCOUNTER → 2017-12-28 | Outpatient (CLI) | payer OTHER ==
[2017-12-28] MEDS: SODIUM CHLORIDE 0.9% 500 ML in EMPTY BAG 1 BAG IV PRN ×2 (13:05→13:40)
[2017-12-28 13:20] VITALS: BP 111/61; PULSE 91; RESP 18; TEMP 98.6
== END ==
LOC: PROCWHC3 12:34
PROVIDERS: ATTEND Surgery Plastic and Reconstructive Surgery
DX: E86.0 Dehydration (principal)
CPT/HCPCS: 96360

== ENCOUNTER → 2018-01-30 | Outpatient (CLI) | payer OTHER ==
[2018-01-30 13:48] VITALS: BMI 54.6
[2018-01-30 13:58] VITALS: BP 174/68; PULSE 86; TEMP 98.1
--- NOTE | 2018-01-30 14:06 | P.PN ---
Subjective Progress Note Date: 01/30/18 HPI: She is 6 weeks out from her gastric bypass. Her highest weight 346 pounds. Today, she is 311 pounds. She has lost 35 pounds. She has decreased her insulin use. She is using less medications for her diabetes. She has lost 28 pounds in 1.5 months. No heartburn or abdominal pain. ABDOMEN: No hernias. All incisions granulated. GENERAL: Well-developed and pleasant in no acute distress. HEENT: No scleral icterus. Extraocular movements grossly intact. Moist buccal mucosa. NECK: Supple without lymphadenopathy. CHEST: Unlabored respirations. Equal bilateral excursions. CARDIOVASCULAR: Regular rate and rhythm. Distal 2+ pulses. MUSCULOSKELETAL: No clubbing, cyanosis. Trace 1+ edema. NEURO: No focal signs. SKIN: Well perfused. Good skin turgor. PSYCH: Appropriate affect. Alert and oriented to person, place, and time. ASSESSMENT: 1. Morbid obesity. 2. s/p gastric bypass 3. Diabetes type II, poorly controlled now controlled. 4. Hypertensive heart disease without PLAN: 1. She complains of arthritis of her right hip and left knee. Agreeable for a walker. 2. She may see the chiropractor. 3. She may get a flu shot. 4. She will continue with omeprazole 5. Adjustment of blood pressure medications as she loses. 6. Follow-up in March 2018 Objective - Vital Signs Vital signs: Intake & Output 01/29/18 01/30/18 01/30/18 18:59 06:59 18:59 Weight 140.886 kg
[2018-01-30 14:51] LABS: Anisocytosis Slight; HGB 10.1 gm/dL (11.4-16.0); Hypochromasia Marked; MCH 25.6 pg (25.0-35.0); MCHC 30.7 g/dL (31.0-37.0); Mean Platelet Volume 8.2; Platelet Count 217 k/uL (150-450); Poikilocytosis Moderate; RBC 3.95 m/uL (3.80-5.40); RDW 16.7 % (11.5-15.5); WBC 5.7 k/uL (3.8-10.6)
[2018-01-30 14:52] LABS: Partial Thromboplastin Time 22.9 sec (22.0-30.0); Prothrombin Time 10.1 sec (9.0-12.0)
[2018-01-30 14:54] LABS: MCV 83.5 fL (80.0-100.0)
[2018-01-30 18:44] LABS: Folate, Serum 7.5 ng/mL; Vitamin D 25 Hydroxy 26.7 ng/mL (30.0-100.0)
[2018-01-30 18:48] LABS: Albumin 3.8 g/dL (3.80-4.90); Albumin/Globulin Ratio 1.81 (1.20-2.10); Anion Gap 9.1 mmol/L (4.00-12.00); Calcium 8.8 mg/dL (8.7-10.3); Carbon Dioxide 26.9 mmol/L (21.6-31.8); Globulin 2.1 g/dL (2.1-3.7); Iron Saturation 3.51 (12.00-45.00); LDL Cholesterol,Calculated 91.8 mg/dL (0.0-131.0); Magnesium 1.8 mg/dL (1.5-2.4); Phosphorus 3.2 mg/dL (2.4-5.1); Potassium 3.9 mmol/L (3.5-5.5); Total Bilirubin 0.6 mg/dL (0.3-1.2); Total Protein 5.9 g/dL (6.2-8.2); VLDL Calculation 22.2 mg/dL (5.00-40.00)
[2018-01-30 19:02] LABS: Parathyroid Hormone Intact 41.3 pg/mL (14.0-72.0)
[2018-01-30 19:50] LABS: Hemoglobin A1C 6.8 % (4.0-6.0)
[2018-01-31 12:21] LABS: Zinc, Serum 112 ug/dL (60-130)
[2018-02-01 05:44] LABS: Vitamin A 20 ug/dL (38-106)
[2018-02-01 12:01] LABS: Vitamin B1 59 ug/L (38-122)
== END ==
LOC: BARWHC3 13:04
PROVIDERS: ATTEND Surgery Plastic and Reconstructive Surgery
DX: Z48.815 Encounter for surgical aftercare following surgery on the digestive system (principal); E66.01 Morbid (severe) obesity due to excess calories; E11.65 Type 2 diabetes mellitus with hyperglycemia; I11.9 Hypertensive heart disease without heart failure; E21.1 Secondary hyperparathyroidism, not elsewhere classified; E89.1 Postprocedural hypoinsulinemia; D50.9 Iron deficiency anemia, unspecified; E44.0 Moderate protein-calorie malnutrition; E55.9 Vitamin D deficiency, unspecified; K74.1 Hepatic sclerosis; N19 Unspecified kidney failure; K50.90 Crohn's disease, unspecified, without complications; Z98.84 Bariatric surgery status
CPT/HCPCS: 36415; 80053; 80061; 82306; 82525; 82607; 82728; 82746; 83036; 83540; 83550; 83735; 83970; 84100; 84134; 84255; 84425; 84443; 84590; 84630; 85027; 85610; 85730; 97803; 99211

== ENCOUNTER → 2018-03-20 | Outpatient (CLI) | payer OTHER ==
[2018-03-20 13:41] VITALS: BP 154/97; PULSE 76; TEMP 98.2; BMI 49.8
--- NOTE | 2018-03-20 13:58 | P.PN ---
Subjective Progress Note Date: 03/20/18 DATE OR SERVICE: 03/20/2018 CHIEF COMPLAINT: Status post gastric bypass HISTORY OF PRESENT ILLNESS: Laura Bishop is a 62-year-old female status post gastric bypass, 12/17/2017. She is 3 months out. She has lost 60 pounds this year. She is off blood pressure medications and had moderately reduced her insulin. She only has right hip pain. No reports of hair loss. No gastroesophageal reflux disease. She has some troubles with eggs. Her highest weight was 360 pounds. Her highest body mass index was 63.4. Her ideal body weight is 140 pounds. She comes in 283 pounds from 310 pounds, 3 months ago. She has lost 27 pounds in 3 months. She has lost 77 pounds lifetime. Percent excess weight loss is 35% PHYSICAL EXAM: VITAL SIGNS: Height 5 foot 3.25 inches, weight 283 pounds. BMI 49.9 Vital Signs Temp 98.2 F 03/20/18 13:36 Pulse 76 03/20/18 13:36 Resp BP 154/97 03/20/18 13:36 Pulse Ox GENERAL: Well-developed female in no acute distress. HEENT: No scleral icterus. Extraocular movements grossly intact. Hears conversational speech. No nasal drainage. NECK: Supple without lymphadenopathy. Well-healed collar incision from previous thyroidectomy. CHEST: Nonlabored respirations with equal bilateral excursions. CARDIOVASCULAR: Bradycardic. Distal 2+ pulses. ABDOMEN: No cellulitis or infection. Incisions clean dry and intact. MUSCULOSKELETAL: No clubbing, cyanosis. NEURO: No focal or lateralizing signs. Cranial nerves 2 through 12 grossly within normal limits. PSYCH: Appropriate affect. Alert and oriented to person, place and time. SKIN: Good skin turgor. Well perfused. ASSESSMENT: 1. Morbid obesity due to excess calories. 2. Body mass index 63.4 down to 49.9 3. Status post gastric bypass PLAN: 1. Recommend bariatric labs. 2. She is at risk of esophageal stricture and may need upper endoscopy 3. Follow up in 3 months. Laboratory Last Values WBC 4.5 k/uL (3.8-10.6) 03/20/18 14:20 RBC 5.28 m/uL (3.80-5.40) 03/20/18 14:20 Hgb 13.2 gm/dL (11.4-16.0) D 03/20/18 14:20 Hct 44.6 % (34.0-46.0) 03/20/18 14:20 MCV 84.4 fL (80.0-100.0) 03/20/18 14:20 MCH 25.0 pg (25.0-35.0) 03/20/18 14:20 MCHC 29.6 g/dL (31.0-37.0) L 03/20/18 14:20 RDW 21.2 % (11.5-15.5) H 03/20/18 14:20 Plt Count 137 k/uL (150-450) L 03/20/18 14:20 Hypochromasia Marked 03/20/18 14:20 Anisocytosis Moderate 03/20/18 14:20 Microcytosis Slight 03/20/18 14:20 PT 10.1 sec (9.0-12.0) 03/20/18 14:20 INR 0.9 (<1.2) 03/20/18 14:20 APTT 23.8 sec (22.0-30.0) 03/20/18 14:20 Sodium 144 mmol/L (135-145) 03/20/18 14:20 Potassium 3.4 mmol/L (3.5-5.5) L 03/20/18 14:20 Chloride 107 mmol/L (96-109) 03/20/18 14:20 Carbon Dioxide 27.3 mmol/L (21.6-31.8) 03/20/18 14:20 Anion Gap 9.70 mmol/L (4.00-12.00) 03/20/18 14:20 BUN 8.0 mg/dL (9.0-27.0) L 03/20/18 14:20 Creatinine 0.7 mg/dL (0.6-1.5) 03/20/18 14:20 Est GFR (CKD-EPI)AfAm 109.1 (60.0-200.0) 03/20/18 14:20 Est GFR (CKD-EPI)NonAf 94.2 (60.0-200.0) 03/20/18 14:20 BUN/Creatinine Ratio 11.43 Ratio (12.00-20.00) L 03/20/18 14:20 Glucose 120 mg/dL (70-110) H 03/20/18 14:[address] Glu mg/dL 100 03/20/18 14:20 Hemoglobin A1c 5.1 % (4.0-6.0) 03/20/18 14:20 Calcium 8.3 mg/dL (8.7-10.3) L 03/20/18 14:20 Phosphorus 3.2 mg/dL (2.4-5.1) 03/20/18 14:20 Magnesium 1.8 mg/dL (1.5-2.4) 03/20/18 14:20 Iron 26 ug/dL (50-170) L 03/20/18 14:20 TIBC 271 ug/dL (228-460) 03/20/18 14:20 Iron Saturation 9.59 (12.00-45.00) L 03/20/18 14:20 Ferritin 95.8 ng/mL (10.0-291.0) 03/20/18 14:20 Total Bilirubin 0.5 mg/dL (0.3-1.2) 03/20/18 14:20 AST 50 U/L (13-35) H 03/20/18 14:20 ALT 32 U/L (8-44) 03/20/18 14:20 Alkaline Phosphatase 66 U/L (41-126) 03/20/18 14:20 Total Protein 5.8 g/dL (6.2-8.2) L 03/20/18 14:20 Albumin 3.60 g/dL (3.80-4.90) L 03/20/18 14:20 Globulin 2.2 g/dL (2.1-3.7) 03/20/18 14:20 Albumin/Globulin Ratio 1.64 g/dL (1.20-2.10) 03/20/18 14:20 Prealbumin 8.0 mg/dL (18.0-42.0) L 03/20/18 14:20 Triglycerides 109.0 mg/dL (0.0-149.0) 03/20/18 14:20 Cholesterol 164 mg/dL (0-200) 03/20/18 14:20 LDL Cholesterol, Calc 110.2 mg/dL (0.0-131.0) 03/20/18 14:20 VLDL Cholesterol, Calc 21.80 mg/dL (5.00-40.00) 03/20/18 14:20 HDL Cholesterol 32.0 mg/dL (40.0-60.0) L 03/20/18 14:20 Cholesterol/HDL Ratio 5.13 03/20/18 14:20 Vitamin A 33 ug/dL (38-106) L 03/20/18 14:20 Vitamin B1 41 ug/L (38-122) 03/20/18 14:20 Vitamin B12 575.0 pg/mL (200.0-944.0) 03/20/18 14:20 Vitamin D 25-Hydroxy 45.4 ng/mL (30.0-100.0) 03/20/18 14:20 Folate 5.3 ng/mL 03/20/18 14:20 TSH 0.020 uIU/mL (0.350-5.500) L 03/20/18 14:20 PTH Intact 82.6 pg/mL (14.0-72.0) H 03/20/18 14:20 Copper 1079 ug/L (810-1990) 03/20/18 14:20 Selenium 143 mcg/L (63-160) 03/20/18 14:20 Zinc 84 ug/dL (60-130) 03/20/18 14:20 Iron is low Pre-albumin and albumin is low Vitamin A is low TSH is suppressed PTH is elevated Calciuim is low Objective - Vital Signs Vital signs: Vital Signs Temp 98.2 F 03/20/18 13:36 Pulse 76 03/20/18 13:36 Resp BP 154/97 03/20/18 13:36 Pulse Ox Intake & Output 03/19/18 03/20/18 03/20/18 18:59 06:59 18:59 Weight 128.82 kg - Labs CBC & Chem 7: 03/20/18 14:20 03/20/18 14:20
[2018-03-20 14:46] LABS: Anisocytosis Moderate; HCT 44.6 % (34.0-46.0); Hypochromasia Marked; MCHC 29.6 g/dL (31.0-37.0); MCV 84.4 fL (80.0-100.0); Mean Platelet Volume 8.6; Microcytosis Slight; Platelet Count 137 k/uL (150-450); RBC 5.28 m/uL (3.80-5.40); RDW 21.2 % (11.5-15.5); WBC 4.5 k/uL (3.8-10.6)
[2018-03-20 15:05] LABS: HGB 13.2 gm/dL (11.4-16.0)
[2018-03-20 15:13] LABS: INR 0.9 (<1.2); Partial Thromboplastin Time 23.8 sec (22.0-30.0); Prothrombin Time 10.1 sec (9.0-12.0)
[2018-03-20 19:41] LABS: Albumin 3.6 g/dL (3.80-4.90); Albumin/Globulin Ratio 1.64 (1.20-2.10); Anion Gap 9.7 mmol/L (4.00-12.00); Calcium 8.3 mg/dL (8.7-10.3); Carbon Dioxide 27.3 mmol/L (21.6-31.8); Globulin 2.2 g/dL (2.1-3.7); LDL Cholesterol,Calculated 110.2 mg/dL (0.0-131.0); Magnesium 1.8 mg/dL (1.5-2.4); Phosphorus 3.2 mg/dL (2.4-5.1); Potassium 3.4 mmol/L (3.5-5.5); Total Bilirubin 0.5 mg/dL (0.3-1.2); Total Protein 5.8 g/dL (6.2-8.2); VLDL Calculation 21.8 mg/dL (5.00-40.00)
[2018-03-20 19:50] LABS: Vitamin D 25 Hydroxy 45.4 ng/mL (30.0-100.0)
[2018-03-20 19:51] LABS: Folate, Serum 5.3 ng/mL
[2018-03-20 20:14] LABS: Iron Saturation 9.59 (12.00-45.00)
[2018-03-20 20:50] LABS: Parathyroid Hormone Intact 82.6 pg/mL (14.0-72.0)
[2018-03-20 21:20] LABS: Hemoglobin A1C 5.1 % (4.0-6.0)
[2018-03-21 12:39] LABS: Zinc, Serum 84 ug/dL (60-130)
[2018-03-21 12:53] LABS: Vitamin A 33 ug/dL (38-106)
[2018-03-22 05:52] LABS: Vitamin B1 41 ug/L (38-122)
[2018-03-22 19:57] LABS: Selenium 143 mcg/L (63-160)
== END | disposition home or self-care (01) ==
LOC: BARWHC3 12:35
PROVIDERS: ATTEND Surgery Plastic and Reconstructive Surgery
DX: Z48.815 Encounter for surgical aftercare following surgery on the digestive system (principal); E66.01 Morbid (severe) obesity due to excess calories; E10.65 Type 1 diabetes mellitus with hyperglycemia; E21.1 Secondary hyperparathyroidism, not elsewhere classified; E89.1 Postprocedural hypoinsulinemia; D50.9 Iron deficiency anemia, unspecified; K90.9 Intestinal malabsorption, unspecified; E44.0 Moderate protein-calorie malnutrition; E55.9 Vitamin D deficiency, unspecified; K74.1 Hepatic sclerosis; N19 Unspecified kidney failure; K50.90 Crohn's disease, unspecified, without complications; Z98.84 Bariatric surgery status; Z68.42 Body mass index [BMI] 45.0-49.9, adult
CPT/HCPCS: 80053; 80061; 82306; 82525; 82607; 82728; 82746; 83036; 83540; 83550; 83735; 83970; 84100; 84134; 84255; 84425; 84443; 84590; 84630; 85027; 85610; 85730; 97803; 99211

== ENCOUNTER → 2018-06-19 | Outpatient (CLI) | payer OTHER ==
[2018-06-19 13:43] VITALS: RESP 16; TEMP 98.2; BMI 46.5
[2018-06-19 14:04] VITALS: BP 154/103; PULSE 74
--- NOTE | 2018-06-19 14:24 | P.PN ---
Subjective Progress Note Date: 06/19/18 HPI: She reports with chest pain that woke her up from sleep. She went to to the ER for chest pain evaluation. ABDOMEN: ASSESSMENT: 1. Morbid obesity PLAN: 1. Cardiovascular assessment 2. EGD for evaluation 3. Upper endoscopy for dysphagia 4. Dietary surveillance journal 5. Get bariatric labs Objective - Vital Signs Vital signs: Vital Signs Temp 98.2 F 06/19/18 13:40 Pulse 74 06/19/18 13:40 Resp 16 06/19/18 13:40 BP 154/103 06/19/18 13:40 Pulse Ox Intake & Output 06/18/18 06/19/18 06/19/18 18:59 06:59 18:59 Weight 120.202 kg
[2018-06-19 15:46] LABS: HCT 44.9 % (34.0-46.0); HGB 14.1 gm/dL (11.4-16.0); Hypochromasia Slight; MCH 28.4 pg (25.0-35.0); MCHC 31.4 g/dL (31.0-37.0); MCV 90.4 fL (80.0-100.0); Mean Platelet Volume 8.3; Platelet Count 171 k/uL (150-450); RBC 4.96 m/uL (3.80-5.40); RDW 15.7 % (11.5-15.5); WBC 6.1 k/uL (3.8-10.6)
[2018-06-19 15:54] LABS: INR 0.9 (<1.2); Partial Thromboplastin Time 24.7 sec (22.0-30.0)
[2018-06-19 21:48] LABS: Hemoglobin A1C 6.2 % (4.0-6.0)
[2018-06-20 01:37] LABS: Albumin 4.3 g/dL (3.80-4.90); Albumin/Globulin Ratio 1.72 (1.60-3.17); Anion Gap 9.1 mmol/L (4.00-12.00); Calcium 8.8 mg/dL (8.7-10.3); Carbon Dioxide 25.9 mmol/L (21.6-31.8); Globulin 2.5 g/dL (1.6-3.3); Magnesium 1.9 mg/dL (1.5-2.4); Phosphorus 3.5 mg/dL (2.4-5.1); Potassium 3.9 mmol/L (3.5-5.5); Total Bilirubin 0.5 mg/dL (0.3-1.2); Total Protein 6.8 g/dL (6.2-8.2)
[2018-06-20 01:53] LABS: Parathyroid Hormone Intact 75.3 pg/mL (14.0-72.0)
[2018-06-20 02:03] LABS: Iron Saturation 8.14 (12.00-45.00)
[2018-06-20 02:13] LABS: Vitamin D 25 Hydroxy 52.8 ng/mL (30.0-100.0)
[2018-06-20 02:17] LABS: Folate, Serum 15.6 ng/mL
[2018-06-20 14:55] LABS: Zinc, Serum 54 ug/dL (60-130)
[2018-06-21 06:14] LABS: Vitamin A 38 ug/dL (38-106)
[2018-06-21 10:09] LABS: Vit B1(Thiamine) 70 ug/L (38-122)
[2018-06-22 13:22] LABS: Selenium 103 mcg/L (63-160)
== END | disposition home or self-care (01) ==
LOC: BARWHC3 13:11
PROVIDERS: ATTEND Surgery Plastic and Reconstructive Surgery
DX: E66.01 Morbid (severe) obesity due to excess calories (principal); R07.9 Chest pain, unspecified; E21.1 Secondary hyperparathyroidism, not elsewhere classified; D50.9 Iron deficiency anemia, unspecified; E89.1 Postprocedural hypoinsulinemia; E44.0 Moderate protein-calorie malnutrition; E55.9 Vitamin D deficiency, unspecified; K74.1 Hepatic sclerosis; N19 Unspecified kidney failure; K50.90 Crohn's disease, unspecified, without complications; Z68.42 Body mass index [BMI] 45.0-49.9, adult
CPT/HCPCS: 36415; 80053; 80061; 82306; 82525; 82607; 82728; 82746; 83036; 83540; 83550; 83735; 83970; 84100; 84134; 84255; 84425; 84443; 84590; 84630; 85027; 85610; 85730; 97803; 99211

== ENCOUNTER → 2018-07-30 | Outpatient (CLI) | payer OTHER ==
--- NOTE | 2018-07-30 09:31 | US ---
EXAMINATION TYPE: US pelvic complete DATE OF EXAM: 07/30/2018 COMPARISON: US and 15 CLINICAL HISTORY: N95.0 Post Menopausal Bleeding; ; last December 1 week after gastric bypass seals rgery patient stated had 2 days post menopausal bleeding TECHNIQUE: Transvaginal (TV). Transvaginal sonographic images were medically necessary to better ass ess the following anatomy: endometrium due to bladder not fully prepped and patient accepted TV US ap proach. Date of LMP: years ago EXAM MEASUREMENTS: Uterus: 7.6 x 5.7 x 4.0 cm Endometrial Stripe: 0.5 cm Right Ovary: 1.8 x 1.1 x 1.3 cm Left Ovary: 1.7 x 0.9 x 0.8 cm 1. Uterus: Anteverted; couple of small Nabothian cysts in cervix 2. Endometrium: thickness is wnl post menopause 3. Right Ovary: wnl 4. Left Ovary: wnl 5. Bilateral Adnexa: wnl 6. Posterior cul-de-sac: wnl IMPRESSION: 1. No abnormal endometrial thickness although in this patient with postmenopausal bleeding direct vis ualization could be considered. 2. No adnexal masses seen.
== END | disposition home or self-care (01) ==
LOC: RADUSWWP 08:05
PROVIDERS: ATTEND Obstetrics & Gynecology
DX: N95.0 Postmenopausal bleeding (principal)
CPT/HCPCS: 76830

== ENCOUNTER 2018-07-31 07:49 | Day surgery (SDC) | payer OTHER ==
[2018-07-29 15:11] VITALS: BMI 43.7
[~2018-07-31 07:49] MED LIST changes: -CHLORHEXIDINE GLUCONATE 15 ML CUP MUCOUS MEM ONE; -ENOXAPARIN 40 MG/0.4 ML SYRINGE SQ STA; -HYDROmorphone 0.5 MG/0.5 ML SYRINGE IVP PRN; +LACTATED RINGERS 1,000 ML IV SCH; -PANTOPRAZOLE 40 MG/10 ML VIAL IV STA
[2018-07-31] MEDS ORDERED: LACTATED RINGERS 1,000 ML IV ONE (08:04)
[2018-07-31 08:17] VITALS: TEMP 98.6
[2018-07-31 08:28] LABS: Glucose,Whole Blood 118 mg/dL (75-99)
[2018-07-31] MEDS ORDERED: PROPOFOL 10 MG/ML 20 ML VIAL IV ONE (08:31)
[2018-07-31] MEDS ORDERED: KETAMINE 10 MG/ML 20 ML VIAL ONE (08:31)
[2018-07-31] MEDS ORDERED: LIDOCAINE 1% INJ 10MG/ML (20 ML MDV) ONE (08:31)
--- NOTE | 2018-07-31 08:37 | P.GSHP ---
History of Present Illness H&P Date: 07/31/18 CHIEF COMPLAINT: GERD HISTORY OF PRESENT ILLNESS: The patient is a 63-year-old female who presents reports gastroesophageal reflux disease. Upper endoscopy was offered for further evaluation and management. PAST MEDICAL HISTORY: Please see list. PAST SURGICAL HISTORY: Please see list. MEDICATIONS: Please see list. ALLERGIES: Please see list. SOCIAL HISTORY: No illicit drug use FAMILY HISTORY: No reports of Crohn disease or ulcerative colitis. REVIEW OF ORGAN SYSTEMS: CONSTITUTIONAL: No reports of fevers or chills. GI: Denies any blood in stools or constipation. PHYSICAL EXAM: VITAL SIGNS: Stable GENERAL: Well-developed and pleasant in no acute distress. HEENT: No scleral icterus. Extraocular movements grossly intact. Moist buccal mucosa. NECK: Supple without lymphadenopathy. CHEST: Unlabored respirations. Equal bilateral excursions. CARDIOVASCULAR: Regular rate and rhythm. Distal 2+ pulses. ABDOMEN: Soft, nondistended. MUSCULOSKELETAL: No clubbing, cyanosis, or edema. ASSESSMENT: 1. Gastroesophageal reflux disease PLAN: 1. Recommend proceeding with an upper endoscopy Past Medical History Past Medical History: Diabetes Mellitus, GERD/Reflux, Hyperlipidemia, Hypertension, Thyroid Disorder Additional Past Medical History / Comment(s): DYSPHAGIA, THYROID NODULE History of Any Multi-Drug Resistant Organisms: None Reported Past Surgical History: Adenoidectomy, Bariatric Surgery, Cholecystectomy, Tonsillectomy, Tubal Ligation Additional Past Surgical History / Comment(s): COLONOSCOPY/EGD, RT KIDNEY REMOV ED, BREAST BX,. D & C, THYROIDECTOMY; Immanuel-en-Y Gastric Bypass 12-17-17 (Dr. Qian Murray) Past Anesthesia/Blood Transfusion Reactions: Motion Sickness, Postoperative Nausea & Vomiting (PONV) Smoking Status: Former smoker - Past Family History Father Family Medical History: Cancer Additional Family Medical History / Comment(s): LUNG Mother Family Medical History: Cancer Additional Family Medical History / Comment(s): BREAST Sister(s) Family Medical History: Cancer Additional Family Medical History / Comment(s): 2 SISTER HAD BREAST CANCER Medications and Allergies Home Medications Medication Instructions Recorded Confirmed Type Omeprazole [PriLOSEC] 20 mg PO AC-BID 03/10/16 07/31/18 History Levothyroxine Sodium [Synthroid] 25 mcg PO QAM 05/04/17 07/31/18 History Levothyroxine Sodium [Synthroid] 200 mcg PO QAM 05/04/17 07/31/18 History Calcium Citrate 250 mg PO TID 01/30/18 07/29/18 History Multivitamins, Thera [Multivitamin 1 tab PO DAILY 01/30/18 07/29/18 History (formulary)] Cholecalciferol (Vitamin D3) 10,000 unit PO DAILY 03/20/18 07/29/18 History [Vitamin D3] Vitamin A Acetate [Vitamin A] 10,000 unit SL DAILY 03/20/18 07/29/18 History amLODIPine [Norvasc] 5 mg PO QAM 06/19/18 07/31/18 History Zinc 40 mg PO BID 07/29/18 07/29/18 History buPROPion XL [Wellbutrin Xl] 150 mg PO QAM 07/29/18 07/31/18 History Allergies Allergy/AdvReac Type Severity Reaction Status Date / Time prednisone Allergy Rash/Hives Verified 07/31/18 08:13 Surgical - Exam Vital Signs Pulse Resp BP Pulse Ox 75 16 166/80 96 07/31/18 08:11 07/31/18 08:11 07/31/18 08:11 07/31/18 08:11 Results - Labs Abnormal Lab Results - Last 24 Hours (Table) 07/31/18 Range/Units 08:22 POC Glucose (mg/dL) 118 H (75-99) mg/dL
--- NOTE | 2018-07-31 08:56 | P.PCN ---
Date of Procedure: 07/31/18 Description of Procedure: PREOPERATIVE DIAGNOSIS: Dysphagia. Gastroesophageal reflux disease Morbid obesity. Diabetes type 2. POSTOPERATIVE DIAGNOSIS: Dysphagia. Morbid obesity. Gastroesophageal reflux disease Diabetes type 2. 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 Esophagogastrojejunoscopy with cold forceps biopsy along pouch SURGEON: Qian Murray MD ANESTHESIA: MAC. INDICATIONS: The patient is a 63-year-old female who presents with a history of dysphagia, gastric bypass including gastroesophageal reflux disease. Benefits and risks of the procedure were described. Informed consent was obtained. DESCRIPTION: The patient was brought into the endoscopy suite and laid in the left lateral decubitus position. After a timeout was confirmed, the procedure was initiated. An Olympus gastroscope was passed along the posterior oropharynx down to the distal esophagus where the squamocolumnar junction was unremarkable. The gastric pouch was entered. A gastrojejunal stricture of 16 mm was found as the adult gastroscope was 9.5 mm in size. A [employer] balloon dilator was placed through the scope. Final insufflation up to 20 mm was performed with a total of 2 minutes. The scope was advanced up to 60 cm from the incisors into the Immanuel limb. The mucosa of the gastrojejunal anastomosis was intact. No gastrojejunal marginal ulcer was encountered. No full-thickness injury was encountered. The gastric mucosa had mild inflammation biopsies obtained with cold forceps. The GI tract was desufflated. The patient tolerated the procedure well. FINDINGS: Squamocolumnar junction unremarkable at 37 cm. Stricture of approximately 16 mm encountered. No gastrojejunal ulceration encountered. Successful balloon dilatation to 20 mm. Anastomosis at 44 cm Gastric pouch 7 cm. Cold forceps biopsies obtained along gastric pouch with features of chronic gastritis RECOMMENDATIONS: Upper endoscopy as needed Plan - Discharge Summary Discharge Rx Participant: No New Discharge Prescriptions: No Action Omeprazole [PriLOSEC] 20 mg PO AC-BID Levothyroxine Sodium [Synthroid] 25 mcg PO QAM Levothyroxine Sodium [Synthroid] 200 mcg PO QAM Multivitamins, Thera [Multivitamin (formulary)] 1 tab PO DAILY Calcium Citrate 250 mg PO TID Vitamin A Acetate [Vitamin A] 10,000 unit SL DAILY Cholecalciferol (Vitamin D3) [Vitamin D3] 10,000 unit PO DAILY amLODIPine [Norvasc] 5 mg PO QAM buPROPion XL [Wellbutrin Xl] 150 mg PO QAM Zinc 40 mg PO BID Discharge Medication List Omeprazole [PriLOSEC] 20 mg PO AC-BID 03/10/16 [History] Levothyroxine Sodium [Synthroid] 25 mcg PO QAM 05/04/17 [History] Levothyroxine Sodium [Synthroid] 200 mcg PO QAM 05/04/17 [History] Calcium Citrate 250 mg PO TID 01/30/18 [History] Multivitamins, Thera [Multivitamin (formulary)] 1 tab PO DAILY 01/30/18 [History] Cholecalciferol (Vitamin D3) [Vitamin D3] 10,000 unit PO DAILY 03/20/18 [History] Vitamin A Acetate [Vitamin A] 10,000 unit SL DAILY 03/20/18 [History] amLODIPine [Norvasc] 5 mg PO QAM 06/19/18 [History] Zinc 40 mg PO BID 07/29/18 [History] buPROPion XL [Wellbutrin Xl] 150 mg PO QAM 07/29/18 [History] Follow up Appointment(s)/Referral(s): [facility],. [NON-STAFF] - 08/21/18 Patient Instructions/Handouts: Esophageal Dilation (DC), Gastritis (DC) Activity/Diet/Wound Care/Special Instructions: Regular diet Discharge Disposition: HOME SELF-CARE
[2018-07-31 09:13] VITALS: BP 129/85; PULSE 68; RESP 18
== END 2018-07-31 09:42 | disposition home or self-care (01) ==
LOC: ORWHC2ENDO 07:49
PROVIDERS: ATTEND Surgery Plastic and Reconstructive Surgery
DX: K95.89 Other complications of other bariatric procedure (principal); R13.10 Dysphagia, unspecified; K29.50 Unspecified chronic gastritis without bleeding; K31.7 Polyp of stomach and duodenum; E07.9 Disorder of thyroid, unspecified; E11.9 Type 2 diabetes mellitus without complications; E66.01 Morbid (severe) obesity due to excess calories; E78.5 Hyperlipidemia, unspecified; I10 Essential (primary) hypertension; K21.9 Gastro-esophageal reflux disease without esophagitis; Z87.891 Personal history of nicotine dependence; Z90.49 Acquired absence of other specified parts of digestive tract; Z80.3 Family history of malignant neoplasm of breast; Z79.890 Hormone replacement therapy; Z79.899 Other long term (current) drug therapy; Z88.8 Allergy status to other drugs, medicaments and biological substances; Z90.5 Acquired absence of kidney; Z68.41 Body mass index [BMI] 40.0-44.9, adult
CPT/HCPCS: 88305; 43239; 43245; J2001; J2704; C1726

== ENCOUNTER → 2018-09-18 | Outpatient (CLI) | payer OTHER ==
[2018-09-18 13:42] VITALS: BP 157/91; PULSE 72; RESP 16; TEMP 98.6
--- NOTE | 2018-09-18 14:36 | P.PN ---
Subjective Progress Note Date: 09/18/18 HPI: She highest was 362 pounds. She has lost over 100+ pounds. ADBOMEN: Soft ASSESSMENT: 1. Morbid obesity PLAN: 1. Continue with My[employer]itness Pal 2. Recommend Labs 3. Follow up in 12 months Objective - Vital Signs Vital signs: Vital Signs Temp 98.6 F 09/18/18 13:38 Pulse 72 09/18/18 13:38 Resp 16 09/18/18 13:38 BP 157/91 09/18/18 13:38 Pulse Ox Intake & Output 09/17/18 09/18/18 09/18/18 18:59 06:59 18:59 Weight 116.573 kg
[2018-09-18 14:37] VITALS: BMI 44.2
[2018-09-18 15:37] LABS: Anisocytosis Slight; HCT 49.7 % (34.0-46.0); HGB 16.2 gm/dL (11.4-16.0); MCH 29.7 pg (25.0-35.0); MCHC 32.5 g/dL (31.0-37.0); MCV 91.4 fL (80.0-100.0); Mean Platelet Volume 8.5; Platelet Count 170 k/uL (150-450); RBC 5.44 m/uL (3.80-5.40); RDW 16.1 % (11.5-15.5); WBC 7.5 k/uL (3.8-10.6)
[2018-09-18 15:49] LABS: INR 0.9 (<1.2); Partial Thromboplastin Time 25.2 sec (22.0-30.0); Prothrombin Time 10.1 sec (9.0-12.0)
[2018-09-18 23:17] LABS: Albumin 4.1 g/dL (3.80-4.90); Albumin/Globulin Ratio 1.58 (1.60-3.17); Anion Gap 9.1 mmol/L (4.00-12.00); BUN/Creat Ratio 18.89 Ratio (12.00-20.00); Calcium 9.2 mg/dL (8.7-10.3); Carbon Dioxide 25.9 mmol/L (21.6-31.8); Globulin 2.6 g/dL (1.6-3.3); LDL Cholesterol,Calculated 92.2 mg/dL (0.0-131.0); Phosphorus 3.9 mg/dL (2.4-5.1); Potassium 4.5 mmol/L (3.5-5.5); Total Bilirubin 0.4 mg/dL (0.3-1.2); Total Protein 6.7 g/dL (6.2-8.2); VLDL Calculation 28.8 mg/dL (5.00-40.00)
[2018-09-18 23:18] LABS: Iron Saturation 17.51 (12.00-45.00)
[2018-09-18 23:29] LABS: Vitamin D 25 Hydroxy 49.9 ng/mL (30.0-100.0)
[2018-09-18 23:39] LABS: Folate, Serum 17.3 ng/mL
[2018-09-18 23:43] LABS: Parathyroid Hormone Intact 47.3 pg/mL (14.0-72.0)
[2018-09-19 01:38] LABS: Hemoglobin A1C 6.5 % (4.0-6.0)
[2018-09-19 12:44] LABS: Zinc, Serum 66 ug/dL (60-130)
[2018-09-20 06:39] LABS: Vit B1(Thiamine) 82 ug/L (38-122)
[2018-09-20 07:25] LABS: Vitamin A 43 ug/dL (38-106)
== END | disposition home or self-care (01) ==
LOC: BARWHC3 13:21
PROVIDERS: ATTEND Surgery Plastic and Reconstructive Surgery
DX: E66.01 Morbid (severe) obesity due to excess calories (principal); E21.1 Secondary hyperparathyroidism, not elsewhere classified; E89.1 Postprocedural hypoinsulinemia; D50.9 Iron deficiency anemia, unspecified; K90.9 Intestinal malabsorption, unspecified; E55.9 Vitamin D deficiency, unspecified; K76.9 Liver disease, unspecified; N19 Unspecified kidney failure; K50.90 Crohn's disease, unspecified, without complications; Z68.41 Body mass index [BMI] 40.0-44.9, adult
CPT/HCPCS: 80053; 80061; 82306; 82525; 82607; 82728; 82746; 83036; 83540; 83550; 83735; 83970; 84100; 84134; 84255; 84425; 84443; 84590; 84630; 85027; 85610; 85730; 97803; 99211

== ENCOUNTER → 2018-12-18 | Outpatient (CLI) | payer OTHER ==
[2018-12-18 13:27] VITALS: BP 158/93; PULSE 93; TEMP 98.1; BMI 43.7
--- NOTE | 2018-12-18 13:29 | P.PN ---
Subjective Progress Note Date: 12/18/18 DATE OR SERVICE: 12/18/2018 CHIEF COMPLAINT: Status post gastric bypass HISTORY OF PRESENT ILLNESS: Laura Bishop is a 63-year-old female status post gastric bypass, 12/17/2017. She is happy that she done her surgery. Her diabetes is gone. No more sleep apnea. She is 1 year out. She has occasional gas pains. No gastroesophageal reflux disease. She is eating too much carbs as her is elevated to Hgb A1c 6.5% from 5.1%. She presents with her food diary journal reviewed with carbs under 100 g. Her ideal body weight for her height is 140 pounds for 5 feet 3.25 inches. Her highest weight was 362 pounds. Her highest body mass index was 63.8. She comes in 252 pounds from 251 pounds, 3 months ago. She has gained 1 pound in 3 months. She has lost 110 pounds lifetime. Percent excess weight loss is 49%. PAST MEDICAL HISTORY: 1. Morbid obesity. 2. Body mass index of 63.4, initial 3. Thyroid neoplasm. 4. Diabetes type 2. 5. Hyperlipidemia. 6. Essential hypertension. 7. Depression. 8. Gastroesophageal reflux disease. 9. Hypothyroidism. 10. Hyperlipidemia. 11. Seasonal ALLERGIES. PAST SURGICAL HISTORY: 1. Total thyroidectomy. 2. Adenoidectomy. 3. Cholecystectomy. 4. Tonsillectomy. 5. Tubal ligation. 6. Colonoscopy. 7. Right nephrectomy. 8. Breast biopsy. 9. D&C. 10. Upper endoscopy. HOME MEDICATIONS: Home Medications Medication Instructions Recorded Confirmed Omeprazole [PriLOSEC] 20 mg PO AC-BID 03/10/16 09/18/18 Levothyroxine Sodium [Synthroid] 25 mcg PO QAM 05/04/17 09/18/18 Levothyroxine Sodium [Synthroid] 200 mcg PO QAM 05/04/17 09/18/18 Calcium Citrate 250 mg PO TID 01/30/18 09/18/18 Multivitamins, Thera [Multivitamin 1 tab PO DAILY 01/30/18 09/18/18 (formulary)] Cholecalciferol (Vitamin D3) 10,000 unit PO DAILY 03/20/18 09/18/18 [Vitamin D3] Vitamin A Acetate [Vitamin A] 10,000 unit SL DAILY 03/20/18 09/18/18 amLODIPine [Norvasc] 5 mg PO QAM 06/19/18 09/18/18 Zinc 40 mg PO BID 07/29/18 09/18/18 buPROPion XL [Wellbutrin Xl] 150 mg PO QAM 07/29/18 09/18/18 ALLERGIES: 1. Prednisone SOCIAL HISTORY: Former tobacco use. No active alcohol use. FAMILY HISTORY: No family history of ulcerative colitis disease or Crohn's disease. She does have a family history of morbid obesity. She denies any lupus in her family. No reports of stomach or esophageal cancer. She has a family history of diabetes. REVIEW OF ORGAN SYSTEMS: CONSTITUTIONAL: Her highest weight was 360 pounds. Her highest body mass index was 63.4. Her ideal body weight is 140 pounds. HEENT: Denies any active troubles with vision or hearing. Has troubles with swallowing now resolved after thyroidectomy. ENDOCRINE: Has insulin dependent diabetes now resolved. Has hypothyroidism. CARDIOVASCULAR: Recent chest pain. History of hypertension. RESPIRATORY: Has daytime somnolence including snoring and sleep apnea. No asth ma. GI: Denies any bright red blood per rectum or constipation. Does have gastroesophageal reflux disease as described above. MUSCULOSKELETAL: Has lower back pain and joint pain. Has osteoarthritis of the hips and knees. NEURO: No headaches. No seizure disorders. PSYCH: Has depression without suicidal ideation. RHEUMATOLOGIC: No lupus. No rheumatoid arthritis. HEMATOLOGIC: Denies any abnormal bleeding or bruising. No personal history of DVTs. SKIN: No rash. No skin cancer. PHYSICAL EXAM: VITAL SIGNS: Height 5 foot 3.25 inches, weight 252 pounds. BMI 43.8 Vital Signs Temp 98.1 F 12/18/18 13:24 Pulse 93 12/18/18 13:24 Resp BP 158/93 12/18/18 13:24 Pulse Ox GENERAL: Well-developed female in no acute distress. HEENT: No scleral icterus. Extraocular movements grossly intact. Hears conversational speech. No nasal drainage. NECK: Supple without lymphadenopathy. Well-healed collar incision from previous thyroidectomy. CHEST: Nonlabored respirations with equal bilateral excursions. CARDIOVASCULAR: Bradycardic. Distal 2+ pulses. ABDOMEN: Soft, nontender. Nondistended. No hernias. MUSCULOSKELETAL: No clubbing, cyanosis. NEURO: No focal or lateralizing signs. Cranial nerves 2 through 12 grossly within normal limits. PSYCH: Appropriate affect. Alert and oriented to person, place and time. SKIN: Good skin turgor. Well perfused. LABS: Laboratory Last Values WBC 7.5 k/uL (3.8-10.6) 09/18/18 15:01 RBC 5.44 m/uL (3.80-5.40) H 09/18/18 15:01 Hgb 16.2 gm/dL (11.4-16.0) H 09/18/18 15:01 Hct 49.7 % (34.0-46.0) H 09/18/18 15:01 MCV 91.4 fL (80.0-100.0) 09/18/18 15: MCH 29.7 pg (25.0-35.0) 09/18/18 15: MCHC 32.5 g/dL (31.0-37.0) 09/18/18 15:01 RDW 16.1 % (11.5-15.5) H 09/18/18 15:01 Plt Count 170 k/uL (150-450) 09/18/18 15:01 Anisocytosis Slight 09/18/18 15: PT 10.1 sec (9.0-12.0) 09/18/18 15:01 INR 0.9 (<1.2) 09/18/18 15:01 APTT 25.2 sec (22.0-30.0) 09/18/18 15:01 Sodium 141 mmol/L (135-145) 09/18/18 15:01 Potassium 4.5 mmol/L (3.5-5.5) 09/18/18 15:01 Chloride 106 mmol/L (96-109) 09/18/18 15:01 Carbon Dioxide 25.9 mmol/L (21.6-31.8) 09/18/18 15:01 Anion Gap 9.10 mmol/L (4.00-12.00) 09/18/18 15:01 BUN 17.0 mg/dL (9.0-27.0) 09/18/18 15:01 Creatinine 0.9 mg/dL (0.6-1.5) 09/18/18 15:01 Est GFR (CKD-EPI)AfAm 80.0 (60.0-200.0) 09/18/18 15:01 Est GFR (CKD-EPI)NonAf 69.0 (60.0-200.0) 09/18/18 15:01 BUN/Creatinine Ratio 18.89 Ratio (12.00-20.00) 09/18/18 15:01 Glucose 99 mg/dL (70-110) 09/18/18 15:[address] Glu mg/dL 140 09/18/18 15:01 Hemoglobin A1c 6.5 % (4.0-6.0) H 09/18/18 15:01 Calcium 9.2 mg/dL (8.7-10.3) 09/18/18 15:01 Phosphorus 3.9 mg/dL (2.4-5.1) 09/18/18 15:01 Magnesium 2.0 mg/dL (1.5-2.4) 09/18/18 15:01 Iron 52 ug/dL (50-170) 09/18/18 15:01 TIBC 297 ug/dL (228-460) 09/18/18 15:01 Iron Saturation 17.51 (12.00-45.00) 09/18/18 15:01 Ferritin 129.3 ng/mL (10.0-291.0) 09/18/18 15:01 Total Bilirubin 0.4 mg/dL (0.3-1.2) 09/18/18 15:01 AST 23 U/L (13-35) 09/18/18 15:01 ALT 20 U/L (8-44) 09/18/18 15:01 Alkaline Phosphatase 112 U/L (41-126) 09/18/18 15:01 Total Protein 6.7 g/dL (6.2-8.2) 09/18/18 15:01 Albumin 4.10 g/dL (3.80-4.90) 09/18/18 15:01 Globulin 2.6 g/dL (1.6-3.3) 09/18/18 15:01 Albumin/Globulin Ratio 1.58 g/dL (1.60-3.17) L 09/18/18 15:01 Prealbumin 16.0 mg/dL (18.0-42.0) L 09/18/18 15:01 Triglycerides 144.0 mg/dL (0.0-149.0) 09/18/18 15:01 Cholesterol 165 mg/dL (0-200) 09/18/18 15:01 LDL Cholesterol, Calc 92.2 mg/dL (0.0-131.0) 09/18/18 15:01 VLDL Cholesterol, Calc 28.80 mg/dL (5.00-40.00) 09/18/18 15:01 HDL Cholesterol 44.0 mg/dL (40.0-60.0) 09/18/18 15:01 Cholesterol/HDL Ratio 3.75 09/18/18 15:01 Vitamin A 43 ug/dL (38-106) 09/18/18 15:01 Vitamin B1 82 ug/L (38-122) 09/18/18 15:01 Vitamin B12 521.0 pg/mL (200.0-944.0) 09/18/18 15:01 Vitamin D 25-Hydroxy 49.9 ng/mL (30.0-100.0) 09/18/18 15:01 Folate 17.3 ng/mL 09/18/18 15:01 TSH 0.330 uIU/mL (0.350-5.500) L 09/18/18 15:01 PTH Intact 47.3 pg/mL (14.0-72.0) 09/18/18 15:01 Copper 1231 ug/L (810-1990) 09/18/18 15:01 Selenium 109 mcg/L (63-160) 09/18/18 15:01 Zinc 66 ug/dL (60-130) 09/18/18 15:01 Pre-albumin is low TSH is low Hgb A1c 6.5% Hgb 16.1 % elevated ASSESSMENT: 1. Morbid obesity due to excess calories. 2. Body mass index 63.4 down to 44.3 3. Status post gastric bypass 4. Dysphagia 5. Atypical chest pain PLAN: 1. Recommend food jounrnal with My [employer]itness pal with carbs to be less than 100 g 2. Recommend bariatric labs 3. Goal of 1000 kcal advised. Objective - Vital Signs Vital signs: Vital Signs Temp 98.1 F 12/18/18 13:24 Pulse 93 12/18/18 13:24 Resp BP 158/93 12/18/18 13:24 Pulse Ox Intake & Output 12/17/18 12/18/1819 18:59 06:59 18:59 Weight 114.759 kg
== END ==
LOC: BARWHC3 12:50
PROVIDERS: ATTEND Surgery Plastic and Reconstructive Surgery
DX: Z48.815 Encounter for surgical aftercare following surgery on the digestive system (principal); E66.01 Morbid (severe) obesity due to excess calories; R13.10 Dysphagia, unspecified; R07.89 Other chest pain; Z68.41 Body mass index [BMI] 40.0-44.9, adult; Z98.84 Bariatric surgery status; Z87.891 Personal history of nicotine dependence; Z88.8 Allergy status to other drugs, medicaments and biological substances; Z79.899 Other long term (current) drug therapy; Z90.49 Acquired absence of other specified parts of digestive tract; Z98.51 Tubal ligation status
CPT/HCPCS: 97803; 99211

== ENCOUNTER → 2019-01-02 | Outpatient (CLI) | payer OTHER ==
[2019-01-02 09:26] LABS: HCT 50.6 % (34.0-46.0); HGB 16.6 gm/dL (11.4-16.0); MCH 31.2 pg (25.0-35.0); MCHC 32.7 g/dL (31.0-37.0); MCV 95.2 fL (80.0-100.0); Mean Platelet Volume 7.9; Platelet Count 159 k/uL (150-450); RBC 5.32 m/uL (3.80-5.40); RDW 13.2 % (11.5-15.5); WBC 6.3 k/uL (3.8-10.6)
[2019-01-02 09:38] LABS: INR 0.9 (<1.2); Partial Thromboplastin Time 25.1 sec (22.0-30.0)
[2019-01-02 19:49] LABS: Iron Saturation 25.77 (12.00-45.00)
[2019-01-02 19:58] LABS: Ferritin 120.3 ng/mL (10.0-291.0); Vitamin D 25 Hydroxy 49.2 ng/mL (30.0-100.0)
[2019-01-02 20:04] LABS: Folate, Serum >24.0 ng/mL
[2019-01-02 21:12] LABS: Hemoglobin A1C 6.8 % (4.0-6.0)
[2019-01-03 00:19] LABS: African American GFR (CKD) 70.4 (60.0-200.0); Albumin 4.2 g/dL (3.80-4.90); Albumin/Globulin Ratio 1.75 (1.60-3.17); Anion Gap 8.4 mmol/L (4.00-12.00); Calcium 8.6 mg/dL (8.7-10.3); Carbon Dioxide 28.6 mmol/L (21.6-31.8); Chol/HDL Ratio 3.41; Globulin 2.4 g/dL (1.6-3.3); Phosphorus 3.9 mg/dL (2.4-5.1); Potassium 4.2 mmol/L (3.5-5.5); Total Bilirubin 0.5 mg/dL (0.3-1.2); Total Protein 6.6 g/dL (6.2-8.2)
== END | disposition home or self-care (01) ==
LOC: LABWHC1 08:53
PROVIDERS: ATTEND Surgery Plastic and Reconstructive Surgery
DX: E21.1 Secondary hyperparathyroidism, not elsewhere classified (principal); E89.1 Postprocedural hypoinsulinemia; D50.9 Iron deficiency anemia, unspecified; K90.9 Intestinal malabsorption, unspecified; E55.9 Vitamin D deficiency, unspecified; K74.1 Hepatic sclerosis; N19 Unspecified kidney failure; K50.90 Crohn's disease, unspecified, without complications
CPT/HCPCS: 36415; 80053; 80061; 82306; 82525; 82607; 82728; 82746; 83036; 83540; 83550; 83735; 83970; 84100; 84134; 84255; 84425; 84443; 84590; 84630; 85027; 85610; 85730

== ENCOUNTER 2019-02-24 23:56 | Inpatient (IN) | payer OTHER ==
[2019-02-25] MEDS ORDERED: ONDANSETRON 4 MG/2 ML VIAL IVP PRN (02:55)
[2019-02-25 06:25] LABS: Basophils # (A) 0.1 k/uL (0-0.2); Basophils % (A) 1 %; Eosinophils % (A) 0 %; HCT 32.7 % (34.0-46.0); Lymphocytes # (A) 1.1 k/uL (1.0-4.8); Lymphocytes % (A) 8 %; MCH 31.4 pg (25.0-35.0); MCHC 32.8 g/dL (31.0-37.0); MCV 95.7 fL (80.0-100.0); Mean Platelet Volume 8.6; Monocytes # (A) 0.5 k/uL (0-1.0); Monocytes % (A) 4 %; Neutrophils % (A) 87 %; Platelet Count 171 k/uL (150-450); RBC 3.42 m/uL (3.80-5.40); RDW 13.1 % (11.5-15.5); WBC 13.9 k/uL (3.8-10.6)
[2019-02-25 06:44] LABS: HGB 10.7 gm/dL (11.4-16.0)
[2019-02-25 08:33] LABS: Albumin 2.9 g/dL (3.5-5.0); Magnesium 1.9 mg/dL (1.6-2.3); Potassium 4.8 mmol/L (3.5-5.1); Total Bilirubin 0.5 mg/dL (0.2-1.3); Total Protein 5.4 g/dL (6.3-8.2)
[2019-02-25 08:40] LABS: Partial Thromboplastin Time 22.4 sec (22.0-30.0); Prothrombin Time 10.6 sec (9.0-12.0)
[2019-02-25 08:41] LABS: Glucose,Whole Blood 193 mg/dL (75-99)
[2019-02-25] MEDS: SODIUM CHLORIDE 0.9% 1,000 ML IV SCH ×2 (09:00→18:00)
--- NOTE | 2019-02-25 09:15 | P.CNPUL ---
History of Present Illness Consult date: 02/25/19 Chief complaint: GIB History of present illness: A pleasant 63-year-old female patient was transferred from [facility] because of GI bleeding. The patient has had a previous Immanuel-en-Y gastric bypass surgery that was done in the year 2018 and since then the patient has lost more than 100 pounds. This was done by Dr. Dixon. She has had previous colonoscopy that showed diverticulosis. The patient had 2 large bouts of maroon colored stool at home. She presented herself to the emergency department at [facility] were she had an additional 2 episodes on this made her quite lightheaded. Her initial hemoglobin was 14 and she dropped to a hemoglobin of 10.4. During the process, she did not have any chest pain. She maintain a decent blood pressure. No tachycardia. She received a total of 1 L of IV fluids in the emergency and following that the patient got moved to the ICU where she was placed on normal saline 35 mL an hour. No nausea. No vomiting. No abdominal pain. No history of colon cancer. No coffee-ground emesis. No hematemesis. She is laying comfortably in bed. For now she is nothing by mouth. No history of alcoholism. She does not take any form of antiplatelet agents or nonsteroidal anti-inflammatory medications. Review of Systems Constitutional: Reports weight loss Eyes: denies as per HPI, denies blurred vision, denies bulging eye, denies decreased vision, denies diplopia, denies discharge, denies dry eye, denies ir ritation, denies itching, denies pain, denies photophobia, denies loss of peripheral vision, denies loss of vision, denies tunnel vision/blind spots Ears: deny: decreased hearing, ear discharge, earache, tinnitus Ears, nose, mouth and throat: Denies headache, Denies sore throat Breasts: absent: as per HPI, change in shape, gynecomastia, masses, nipple discharge, pain, skin changes, swelling Cardiovascular: Denies chest pain, Denies shortness of breath Respiratory: Denies cough Gastrointestinal: Reports BRBPR Genitourinary: Reports as per HPI Menstruation: Reports as per HPI Musculoskeletal: Reports as per HPI Musculoskeletal: absent: ankle pain, ankle stiffness, ankle swelling Integumentary: Denies pruritus, Denies rash Neurological: Reports as per HPI Psychiatric: Reports as per HPI Endocrine: Reports as per HPI Hematologic/Lymphatic: Reports as per HPI Allergic/Immunologic: Reports allergic rhinitis Past Medical History Past Medical History: Diabetes Mellitus, GERD/Reflux, Hyperlipidemia, Hypertension, Thyroid Disorder Additional Past Medical History / Comment(s): Hypertension, diabetes mellitus, THYROID NODULE , history of obesity with bariatric surgery in the form of Immanuel-en-Y gastric bypass surgery, history of diverticulosis History of Any Multi-Drug Resistant Organisms: None Reported Past Surgical History: Adenoidectomy, Bariatric Surgery, Cholecystectomy, Tonsillectomy, Tubal Ligation Additional Past Surgical History / Comment(s): COLONOSCOPY/EGD, RT KIDNEY REMOVED, BREAST BX,. D & C, THYROIDECTOMY; Immanuel-en-Y Gastric Bypass 12-17-17 (Dr. Qian Murray) Past Anesthesia/Blood Transfusion Reactions: Motion Sickness, Postoperative Nausea & Vomiting (PONV) Smoking Status: Former smoker - Past Family History Father Family Medical History: Cancer Additional Family Medical History / Comment(s): LUNG Mother Family Medical History: Cancer Additional Family Medical History / Comment(s): BREAST Sister(s) Family Medical History: Cancer Additional Family Medical History / Comment(s): 2 SISTER HAD BREAST CANCER Medications and Allergies Home Medications Medication Instructions Recorded Confirmed Type Omeprazole [PriLOSEC] 20 mg PO AC-BID 03/10/16 02/25/19 History Levothyroxine Sodium [Synthroid] 200 mcg PO QAM 05/04/17 02/25/19 History Calcium Citrate 250 mg PO TID 01/30/18 02/25/19 History Multivitamins, Thera [Multivitamin 1 tab PO DAILY 01/30/18 02/25/19 History (formulary)] Cholecalciferol (Vitamin D3) 10,000 unit PO DAILY 03/20/18 02/25/19 History [Vitamin D3] Vitamin A Acetate [Vitamin A] 10,000 unit SL DAILY 03/20/18 02/25/19 History Zinc 50 mg PO BID 07/29/18 02/25/19 History buPROPion XL [Wellbutrin Xl] 150 mg PO QAM 07/29/18 02/25/19 History amLODIPine [Norvasc] 10 mg PO DAILY 02/25/19 02/25/19 History Allergies Allergy/AdvReac Type Severity Reaction Status Date / Time prednisone Allergy Rash/Hives Verified 02/25/19 07:24 Physical Exam Vitals: Vital Signs Pulse Resp BP Pulse Ox 02/25/19 07:43 76 16 98/63 99 Intake and Output 02/24/19 02/25/19 02/25/19 22:59 06:59 14:59 Other: Weight 115 kg The patient appeared well nourished and normally developed. Vital signs as documented. Head exam is unremarkable. No scleral icterus or corneal arcus n oted. Neck is without jugular venous distension, thyromegaly, or carotid bruits. Carotid upstrokes are brisk bilaterally. Lungs are clear to auscultation and percussion. Cardiac exam reveals the PMI to be normally sized and situated. Rhythm is regular. First and second heart sounds normal. No murmurs, rubs or gallops. Abdominal exam reveals normal bowel sounds, no masses, no organomegaly and no aortic enlargement. Extremities are nonedematous and both femoral and pedal pulses are normal.Examination of the skin revealed no evidence of significant rashes, suspicious appearing nevi or other concerning lesions. Neurologically the patient is awake and alert and there is no focal neurological deficits. Results - Laboratory Findings CBC and BMP: 02/25/19 04:55 02/25/19 00:27 PT/INR, D-dimer PT 10.6 sec (9.0-12.0) 02/25/19 00:27 INR 1.0 (<1.2) 02/25/19 00:27 Abnormal lab findings: Abnormal Labs 02/25/19 02/25/19 02/25/19 00:27 00:27 03:58 WBC RBC Hgb Hct Neutrophils # Chloride 111 H Carbon Dioxide 21 L BUN 31 H Glucose 287 H POC Glucose (mg/dL) Plasma Lactic Acid Fede 2.2 H* 2.1 H* Calcium 8.0 L Total Protein 5.4 L Albumin 2.9 L 02/25/19 02/25/19 04:55 08:39 WBC 13.9 H RBC 3.42 L Hgb 10.7 L D Hct 32.7 L Neutrophils # 12.0 H Chloride Carbon Dioxide BUN Glucose POC Glucose (mg/dL) 193 H Plasma Lactic Acid Fede Calcium Total Protein Albumin Assessment and Plan Plan: 1 acute GI bleeding of a lower GI source, most likely related to a diverticular bleed. The patient's hemoglobin is down to 10.7. She remains hemodynamically stable. She is known to have diverticulosis by history. She is currently was resuscitated. She received a total of 1 L of IV fluid bolus and currently she is on 75 mL an hour. Coagulation profile is within normal limits. 2 history of obesity post gastric bypass surgery with significant weight loss 3 acid reflux 4 history of thyroid lesions/cancer post-thyroidectomy 5 hyperlipidemia 6 diabetes mellitus type 2 7 history of depression 8 osteoarthritis involving the bilateral hips 9 vitamin D deficiency 10 hypertension 11 history of anemia Plan Fluids. Keep the patient nothing by mouth. IV Protonix. Consult Dr. Dixon from general surgery. May need to repeat a colonoscopy to evaluate for this ongoing GI bleed. For now the patient is stable and she is in the ICU where she is being monitored very closely.
[2019-02-25 10:36] LABS: Basophils # (A) 0.1 k/uL (0-0.2); Basophils % (A) 0 %; Eosinophils # (A) 0.1 k/uL (0-0.7); Eosinophils % (A) 1 %; HCT 36.5 % (34.0-46.0); Lymphocytes # (A) 1.3 k/uL (1.0-4.8); Lymphocytes % (A) 8 %; MCH 31.5 pg (25.0-35.0); MCHC 33.5 g/dL (31.0-37.0); MCV 94.1 fL (80.0-100.0); Mean Platelet Volume 7.5; Monocytes # (A) 0.5 k/uL (0-1.0); Monocytes % (A) 3 %; Neutrophils # (A) 13.5 k/uL (1.3-7.7); Neutrophils % (A) 87 %; Platelet Count 201 k/uL (150-450); RBC 3.88 m/uL (3.80-5.40); WBC 15.5 k/uL (3.8-10.6)
[2019-02-25 10:38] LABS: HGB 12.2 gm/dL (11.4-16.0)
--- NOTE | 2019-02-25 11:09 | P.HPIM ---
History of Present Illness This is a pleasant 63 years old female with past medical history of GERD, diabetes mellitus, hypertension, hyperlipidemia, hypothyroidism, history of obesity status post bariatric surgery of Rouox-en-Y gastric bypass surgery, history of diverticulosis With the bleeding many years ago. Presents because of bloody bowel movements, 2 at home until [facility] [place] before coming to [facility]. She takes Tylenol for pain, no NSAIDs. She denies smoking alcohol or illicit tracts. No abdominal pain. No chest pain or dyspnea. She felt some lightheadedness but she feels better now. The presentation patient was hypotensive 98/63, currently blood pressure 124/65. Hemoglobin is 12.2, down to 10.7. INR is normal, lactic acid was elevated at 2.2 came back to normal, BMP and liver enzymes were unremarkable. Review of Systems CONSTITUTIONAL: No fever, no malaise, no fatigue. HEENT: No recent visual problems or hearing problems. Denied any sore throat. CARDIOVASCULAR: No orthopnea, PND, no palpitations, no syncope. PULMONARY: No shortness of breath, no cough, no hemoptysis. GASTROINTESTINAL: No diarrhea, no nausea, no vomiting, no abdominal pain. Normoactive bowel sounds. NEUROLOGICAL: No headaches, no weakness, no numbness. HEMATOLOGICAL: Denies any bleeding or petechiae. GENITOURINARY: Denies any burning micturition, frequency, or urgency. MUSCULOSKELETAL/RHEUMATOLOGICAL: Denies any joint pain, swelling, or any muscle pain. ENDOCRINE: Denies any polyuria or polydipsia. Past Medical History Past Medical History: Diabetes Mellitus, GERD/Reflux, Hyperlipidemia, Hypertension, Thyroid Disorder Additional Past Medical History / Comment(s): Hypertension, diabetes mellitus, THYROID NODULE , history of obesity with bariatric surgery in the form of Immanuel-en-Y gastric bypass surgery, history of diverticulosis History of Any Multi-Drug Resistant Organisms: None Reported Past Surgical History: Adenoidectomy, Bariatric Surgery, Cholecystectomy, Tonsil lectomy, Tubal Ligation Additional Past Surgical History / Comment(s): COLONOSCOPY/EGD, RT KIDNEY REMOVED, BREAST BX,. D & C, THYROIDECTOMY; Immanuel-en-Y Gastric Bypass 12-17-17 (Dr. Qian Murray) Past Anesthesia/Blood Transfusion Reactions: Motion Sickness, Postoperative Nausea & Vomiting (PONV) Smoking Status: Former smoker - Past Family History Father Family Medical History: Cancer Additional Family Medical History / Comment(s): LUNG Mother Family Medical History: Cancer Additional Family Medical History / Comment(s): BREAST Sister(s) Family Medical History: Cancer Additional Family Medical History / Comment(s): 2 SISTER HAD BREAST CANCER Medications and Allergies Home Medications Medication Instructions Recorded Confirmed Type Omeprazole [PriLOSEC] 20 mg PO AC-BID 03/10/16 02/25/19 History Levothyroxine Sodium [Synthroid] 200 mcg PO QAM 05/04/17 02/25/19 History Calcium Citrate 250 mg PO TID 01/30/18 02/25/19 History Multivitamins, Thera [Multivitamin 1 tab PO DAILY 01/30/18 02/25/19 History (formulary)] Cholecalciferol (Vitamin D3) 10,000 unit PO DAILY 03/20/18 02/25/19 History [Vitamin D3] Vitamin A Acetate [Vitamin A] 10,000 unit SL DAILY 03/20/18 02/25/19 History Zinc 50 mg PO BID 07/29/18 02/25/19 History buPROPion XL [Wellbutrin Xl] 150 mg PO QAM 07/29/18 02/25/19 History amLODIPine [Norvasc] 10 mg PO DAILY 02/25/19 02/25/19 History Allergies Allergy/AdvReac Type Severity Reaction Status Date / Time prednisone Allergy Rash/Hives Verified 02/25/19 07:24 Physical Exam Vitals: Vital Signs Pulse Resp BP Pulse Ox 02/25/19 07:43 76 16 98/63 99 Intake and Output 02/24/19 02/25/19 02/25/19 22:59 06:59 14:59 Other: Weight 115 kg GENERAL: The patient is alert and oriented x3, not in any acute distress. obese HEENT: Pupils are round and equally reacting to light. EOMI. No scleral icterus. No conjunctival pallor. Normocephalic, atraumatic. No pharyngeal erythema. No thyromegaly. CARDIOVASCULAR: S1 and S2 present. No murmurs, rubs, or gallops. PULMONARY: Chest is clear to auscultation, no wheezing or crackles. ABDOMEN: Soft, nontender, nondistended, normoactive bowel sounds. No palpable organomegaly. MUSCULOSKELETAL: No joint swelling or deformity. EXTREMITIES: No cyanosis, clubbing, or pedal edema. NEUROLOGICAL: Gross neurological examination did not reveal any focal deficits. SKIN: No rashes. No petechiae Results CBC & Chem 7: 02/25/19 04:55 02/25/19 00:27 Labs: Abnormal Lab Results - Last 24 Hours (Table) 02/25/19 02/25/19 02/25/19 Range/Units 00:27 00:27 03:58 WBC (3.8-10.6) k/uL RBC (3.80-5.40) m/uL Hgb (11.4-16.0) gm/dL Hct (34.0-46.0) % Neutrophils # (1.3-7.7) k/uL Chloride 111 H (98-107) mmol/L Carbon Dioxide 21 L (22-30) mmol/L BUN 31 H (7-17) mg/dL Glucose 287 H (74-99) mg/dL POC Glucose (mg/dL) (75-99) mg/dL Plasma Lactic Acid Fede 2.2 H* 2.1 H* (0.7-2.0) mmol/L Calcium 8.0 L (8.4-10.2) mg/dL Total Protein 5.4 L (6.3-8.2) g/dL Albumin 2.9 L (3.5-5.0) g/dL 02/25/19 02/25/19 Range/Units 04:55 08:39 WBC 13.9 H (3.8-10.6) k/uL RBC 3.42 L (3.80-5.40) m/uL Hgb 10.7 L D (11.4-16.0) gm/dL Hct 32.7 L (34.0-46.0) % Neutrophils # 12.0 H (1.3-7.7) k/uL Chloride (98-107) mmol/L Carbon Dioxide (22-30) mmol/L BUN (7-17) mg/dL Glucose (74-99) mg/dL POC Glucose (mg/dL) 193 H (75-99) mg/dL Plasma Lactic Acid Fede (0.7-2.0) mmol/L Calcium (8.4-10.2) mg/dL Total Protein (6.3-8.2) g/dL Albumin (3.5-5.0) g/dL Assessment and Plan Assessment: Acute GI bleed Acute blood loss anemia Leukocytosis this is a pleasant 63 years old female who presents because of GI bleed DiverticulosisWith previous history of bleeding and years ago obesity status post bariatric surgery of Rouox-en-Y gastric bypass surgery Hypertension Hyperlipidemia Diabetes mellitus Plan: This is a pleasant 63 years old female who presents with GI bleed. Continue with normal saline, Protonix twice daily, follow-up recommendation by surgical consult. Follow up recommendation by pulmonary/critical care team no Labs and medication were reviewed.. Continue same treatment. Continue with symptomatic treatment. Resume home medication. Monitor lytes and vitals. DVT and GI prophylaxis. Further recommendations of the clinical course of the patient DVT prophylaxis: No anticoagulation because of GI bleeding heparin GI Prophylaxis: PPI Prognosis is guarded
[2019-02-25] MEDS: buPROPion XL 150 MG TAB.ER.24H PO SCH (11:27)
[2019-02-25] MEDS: LEVOTHYROXINE 100 MCG TAB PO SCH (11:27)
[2019-02-25] MEDS: PANTOPRAZOLE 40 MG TABLET PO SCH ×2 (11:28→17:59)
[2019-02-25] MEDS: VITAMIN A 10,000 UNIT CAPSULE PO SCH (11:28)
[2019-02-25 11:32] LABS: Glucose,Whole Blood 141 mg/dL (75-99)
[2019-02-25] MEDS ORDERED: NALOXONE 0.4 MG/ML 1 ML VIAL IV PRN (11:38)
[2019-02-25 12:40] LABS: Basophils % (A) 0 %; Eosinophils # (A) 0.1 k/uL (0-0.7); Eosinophils % (A) 1 %; HCT 28.7 % (34.0-46.0); HGB 9.8 gm/dL (11.4-16.0); Lymphocytes # (A) 2.3 k/uL (1.0-4.8); Lymphocytes % (A) 19 %; MCH 32.2 pg (25.0-35.0); MCHC 34.1 g/dL (31.0-37.0); MCV 94.3 fL (80.0-100.0); Mean Platelet Volume 7.5; Monocytes # (A) 0.5 k/uL (0-1.0); Monocytes % (A) 4 %; Neutrophils # (A) 8.9 k/uL (1.3-7.7); Neutrophils % (A) 75 %; Platelet Count 140 k/uL (150-450); RBC 3.05 m/uL (3.80-5.40); RDW 13.3 % (11.5-15.5); WBC 11.9 k/uL (3.8-10.6)
[2019-02-25] MEDS ORDERED: PEG 3350-NA SULF,BICARB,CL/KCL 4,000 ML BOTTLE PO ONE (13:00)
--- NOTE | 2019-02-25 14:41 | P.GSCN ---
History of Present Illness Consult date: 02/25/19 Reason for Consult: GIB Requesting physician: Janice Ibarra History of present illness: CHIEF COMPLAINT: GI bleeding HISTORY OF PRESENT ILLNESS: This 63-year-old female with history of Immanuel-en-Y gastric bypass who presents to the emergency room with abdominal pain and rectal bleeding. Patient reports she began having an upset stomach yesterday and some discomfort in the upper abdomen. She reports some mild nausea. She states she went to the bathroom and started to notice she was having burgundy colored stools. She denies bright red blood. She denies use of NSAIDS. Patient reports taking Protonix at home twice a day. 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 Patient also underwent colonoscopy in March 2017 revealing diverticulosis and external hemorrhoids. PAST MEDICAL HISTORY: See list. PAST SURGICAL HISTORY: See list. MEDICATIONS: See list. ALLERGIES: See list. SOCIAL HISTORY: No illicit drug use. REVIEW OF SYSTEMS: CONSTITUTIONAL: Denies fever or chills. HEENT: Denies blurred vision, vision changes, or eye pain. Denies hemoptysis ENDOCRINE: Denies heat or cold intolerance. CARDIOVASCULAR: Denies chest pain or pressure. RESPIRATORY: No shortness of breath. GASTROINTESTINAL: See HPI for pertinent findings. NEURO: Denies history of seizures. PSYCH: No depression or suicidal ideation HEMATOLOGIC: Denies bleeding disorders. LYMPHATIC: The patient denies any lumps and bumps around the neck. GENITOURINARY: Denies any blood in urine or increased urinary frequency. MUSCULOSKELETAL: Denies myalgias. Denies joint swelling. Denies decreased range of motion beyond patients baseline. SKIN: Denies pruitis. Denies rash. PHYSICAL EXAM: VITAL SIGNS: Reviewed GENERAL: Well-developed in no acute distress. HEENT: No sclera icterus. Extraocular movements grossly intact. Moist buccal mucosa. Head is atraumatic, normocephalic. Hears conversational speech. No nasal drainage. NECK: Supple without lymphadenopathy. CHEST: Non-labored respirations and equal bilateral excursions. CARDIOVASCULAR: Regular rate with regular rhythm. Palpable 2+ radial pulses. ABDOMEN: Soft. Nondistended. Mild tenderness with palpation of mid upper abdomen. MUSCULOSKELETAL: No clubbing or cyanosis NEUROLOGIC: No focal or lateralizing signs. Cranial nerves II through XII g rossly intact. PSYCH: Appropriate affect. Alert and oriented to person, place and time. SKIN: Well perfused. Good skin turgor. LABORATORY DATA: Hemoglobin on admission 12.2. Repeat 9.8. ASSESSMENT: 1. GI bleed 2. Acute blood loss anemia 3. History of Immaunel-en-Y gastric bypass 3. GERD 4. 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 5. History of colonoscopy in March 2017 revealing diverticulosis and external hemorrhoids. PLAN: -Clear liquid diet. NPO at midnight -Monitor hemoglobin -Continue Protonix BID -GoLYTELY bowel prep today -Patient to undergo EGD and colonoscopy tomorrow with Dr. Murray Nurse practitioner note has been reviewed by physician. Signing provider agrees with the documented findings, assessment, and plan of care. Past Medical History Past Medical History: Diabetes Mellitus, GERD/Reflux, GI Bleed, Hyperlipidemia, Hypertension, Renal Disease, Thyroid Disorder Additional Past Medical History / Comment(s): Hiatal hernia, diverticulitis with lower GI bleed, gastric stricture/dysphagia with dilation, gastric benign polyp, NIDDM type II-no longer on meds since wt loss, R nephrectomy c/t congenital defect, benign thyroid nodules-thyroidectomy. History of Any Multi-Drug Resistant Organisms: None Reported Past Surgical History: Adenoidectomy, Bariatric Surgery, Breast Surgery, Cholecystectomy, Tonsillectomy, Tubal Ligation Additional Past Surgical History / Comment(s): R nephrectomy/ureterectomy, thyroidectomy, immanuel en Y gastric bypass, EGD with dilation, colonoscopy, hysteroscopy D&C, R breast benign biopsy Past Anesthesia/Blood Transfusion Reactions: Motion Sickness, Postoperative Nausea & Vomiting (PONV) Smoking Status: Former smoker - Past Family History Father Family Medical History: Cancer Additional Family Medical History / Comment(s): LUNG Mother Family Medical History: Cancer Additional Family Medical History / Comment(s): BREAST Sister(s) Family Medical History: Cancer Additional Family Medical History / Comment(s): 2 SISTER HAD BREAST CANCER Brother(s) Family Medical History: Myocardial Infarction (PA) Additional Family Medical History / Comment(s): Brother is living. He had a PA at the age of 50yrs. Medications and Allergies Home Medications Medication Instructions Recorded Confirmed Type Omeprazole [PriLOSEC] 20 mg PO AC-BID 03/10/16 02/25/19 History Levothyroxine Sodium [Synthroid] 200 mcg PO QAM 05/04/17 02/25/19 History Calcium Citrate 250 mg PO TID 01/30/18 02/25/19 History Multivitamins, Thera [Multivitamin 1 tab PO DAILY 01/30/18 02/25/19 History (formulary)] Cholecalciferol (Vitamin D3) 10,000 unit PO DAILY 03/20/18 02/25/19 History [Vitamin D3] Vitamin A Acetate [Vitamin A] 10,000 unit SL DAILY 03/20/18 02/25/19 History Zinc 50 mg PO BID 07/29/18 02/25/19 History buPROPion XL [Wellbutrin Xl] 150 mg PO QAM 07/29/18 02/25/19 History amLODIPine [Norvasc] 10 mg PO DAILY 02/25/19 02/25/19 History Allergies Allergy/AdvReac Type Severity Reaction Status Date / Time prednisone Allergy Rash/Hives Verified 02/25/19 07:24 Surgical - Exam Vital Signs Pulse Resp BP Pulse Ox 76 16 98/63 99 02/25/19 07:43 02/25/19 07:43 02/25/19 07:43 02/25/19 07:43 Results - Labs 02/25/19 12:07 02/25/19 00:27 Abnormal Lab Results - Last 24 Hours (Table) 02/25/19 02/25/19 02/25/19 Range/Units 00:27 00:27 00:27 WBC 15.5 H (3.8-10.6) k/uL RBC (3.80-5.40) m/uL Hgb (11.4-16.0) gm/dL Hct (34.0-46.0) % Plt Count (150-450) k/uL Neutrophils # 13.5 H (1.3-7.7) k/uL Chloride 111 H (98-107) mmol/L Carbon Dioxide 21 L (22-30) mmol/L BUN 31 H (7-17) mg/dL Glucose 287 H (74-99) mg/dL POC Glucose (mg/dL) (75-99) mg/dL Plasma Lactic Acid Fede 2.2 H* (0.7-2.0) mmol/L Calcium 8.0 L (8.4-10.2) mg/dL Total Protein 5.4 L (6.3-8.2) g/dL Albumin 2.9 L (3.5-5.0) g/dL 02/25/19 02/25/19 02/25/19 Range/Units 03:58 04:55 08:39 WBC 13.9 H (3.8-10.6) k/uL RBC 3.42 L (3.80-5.40) m/uL Hgb 10.7 L (11.4-16.0) gm/dL Hct 32.7 L (34.0-46.0) % Plt Count (150-450) k/uL Neutrophils # 12.0 H (1.3-7.7) k/uL Chloride (98-107) mmol/L Carbon Dioxide (22-30) mmol/L BUN (7-17) mg/dL Glucose (74-99) mg/dL POC Glucose (mg/dL) 193 H (75-99) mg/dL Plasma Lactic Acid Fede 2.1 H* (0.7-2.0) mmol/L Calcium (8.4-10.2) mg/dL Total Protein (6.3-8.2) g/dL Albumin (3.5-5.0) g/dL 02/25/19 02/25/19 Range/Units 11:30 12:07 WBC 11.9 H (3.8-10.6) k/uL RBC 3.05 L (3.80-5.40) m/uL Hgb 9.8 L (11.4-16.0) gm/dL Hct 28.7 L (34.0-46.0) % Plt Count 140 L (150-450) k/uL Neutrophils # 8.9 H (1.3-7.7) k/uL Chloride (98-107) mmol/L Carbon Dioxide (22-30) mmol/L BUN (7-17) mg/dL Glucose (74-99) mg/dL POC Glucose (mg/dL) 141 H (75-99) mg/dL Plasma Lactic Acid Fede (0.7-2.0) mmol/L Calcium (8.4-10.2) mg/dL Total Protein (6.3-8.2) g/dL Albumin (3.5-5.0) g/dL Diabetes panel 02/25/19 Range/Units 00:27 Sodium 138 (137-145) mmol/L Potassium 4.8 (3.5-5.1) mmol/L Chloride 111 H (98-107) mmol/L Carbon Dioxide 21 L (22-30) mmol/L BUN 31 H (7-17) mg/dL Creatinine 0.89 (0.52-1.04) mg/dL Glucose 287 H (74-99) mg/dL Calcium 8.0 L (8.4-10.2) mg/dL AST 19 (14-36) U/L ALT 21 (9-52) U/L Alkaline Phosphatase 111 (38-126) U/L Total Protein 5.4 L (6.3-8.2) g/dL Albumin 2.9 L (3.5-5.0) g/dL Calcium panel 02/25/19 Range/Units 00:27 Calcium 8.0 L (8.4-10.2) mg/dL Albumin 2.9 L (3.5-5.0) g/dL Pituitary panel 02/25/19 Range/Units 00:27 Sodium 138 (137-145) mmol/L Potassium 4.8 (3.5-5.1) mmol/L Chloride 111 H (98-107) mmol/L Carbon Dioxide 21 L (22-30) mmol/L BUN 31 H (7-17) mg/dL Creatinine 0.89 (0.52-1.04) mg/dL Glucose 287 H (74-99) mg/dL Calcium 8.0 L (8.4-10.2) mg/dL Adrenal panel 02/25/19 Range/Units 00:27 Sodium 138 (137-145) mmol/L Potassium 4.8 (3.5-5.1) mmol/L Chloride 111 H (98-107) mmol/L Carbon Dioxide 21 L (22-30) mmol/L BUN 31 H (7-17) mg/dL Creatinine 0.89 (0.52-1.04) mg/dL Glucose 287 H (74-99) mg/dL Calcium 8.0 L (8.4-10.2) mg/dL Total Bilirubin 0.5 (0.2-1.3) mg/dL AST 19 (14-36) U/L ALT 21 (9-52) U/L Alkaline Phosphatase 111 (38-126) U/L Total Protein 5.4 L (6.3-8.2) g/dL Albumin 2.9 L (3.5-5.0) g/dL Assessment and Plan (1) GI bleed Current Visit: Yes Status: Acute Code(s): K92.2 - GASTROINTESTINAL HEMORRHAGE, UNSPECIFIED SNOMED Code(s): 89531819 (2) History of gastric bypass Current Visit: No Status: Acute Code(s): Z98.84 - BARIATRIC SURGERY STATUS SNOMED Code(s): 089985404 (3) Morbid obesity Current Visit: No Status: Acute Code(s): E66.01 - MORBID (SEVERE) OBESITY DUE TO EXCESS CALORIES SNOMED Code(s): 542058629
[2019-02-25] MEDS: CALCIUM CARBONATE 500 MG CHEWABLE PO SCH ×2 (16:37→21:24)
[2019-02-25 19:01] LABS: Basophils % (A) 0 %; Eosinophils # (A) 0.3 k/uL (0-0.7); Eosinophils % (A) 3 %; Lymphocytes # (A) 2.9 k/uL (1.0-4.8); Lymphocytes % (A) 28 %; MCH 31.3 pg (25.0-35.0); MCHC 33.2 g/dL (31.0-37.0); MCV 94.3 fL (80.0-100.0); Monocytes # (A) 0.4 k/uL (0-1.0); Monocytes % (A) 4 %; Neutrophils # (A) 6.6 k/uL (1.3-7.7); Neutrophils % (A) 64 %; Platelet Count 140 k/uL (150-450); RBC 3.18 m/uL (3.80-5.40); RDW 13.1 % (11.5-15.5); WBC 10.4 k/uL (3.8-10.6)
[2019-02-25 20:41] LABS: Glucose,Whole Blood 121 mg/dL (75-99)
[2019-02-25] MEDS: ZINC SULFATE 220 MG CAP PO SCH (21:24)
[2019-02-26 00:24] LABS: Basophils # (A) 0.1 k/uL (0-0.2); Basophils % (A) 1 %; Eosinophils # (A) 0.3 k/uL (0-0.7); Eosinophils % (A) 4 %; HCT 28.5 % (34.0-46.0); HGB 9.7 gm/dL (11.4-16.0); Lymphocytes % (A) 36 %; MCH 31.6 pg (25.0-35.0); MCHC 33.9 g/dL (31.0-37.0); MCV 93.1 fL (80.0-100.0); Mean Platelet Volume 7.9; Monocytes # (A) 0.4 k/uL (0-1.0); Monocytes % (A) 5 %; Neutrophils # (A) 4.3 k/uL (1.3-7.7); Neutrophils % (A) 53 %; Platelet Count 132 k/uL (150-450); RBC 3.06 m/uL (3.80-5.40); RDW 13.1 % (11.5-15.5); WBC 8.2 k/uL (3.8-10.6)
[2019-02-26 05:44] LABS: Basophils % (A) 1 %; Eosinophils # (A) 0.3 k/uL (0-0.7); Eosinophils % (A) 4 %; HGB 9.4 gm/dL (11.4-16.0); Lymphocytes # (A) 2.3 k/uL (1.0-4.8); Lymphocytes % (A) 38 %; MCH 31.4 pg (25.0-35.0); MCHC 33.4 g/dL (31.0-37.0); MCV 93.8 fL (80.0-100.0); Mean Platelet Volume 7.9; Monocytes # (A) 0.3 k/uL (0-1.0); Monocytes % (A) 5 %; Neutrophils # (A) 2.9 k/uL (1.3-7.7); Neutrophils % (A) 50 %; Platelet Count 110 k/uL (150-450); RBC 2.99 m/uL (3.80-5.40); RDW 13.2 % (11.5-15.5); WBC 5.9 k/uL (3.8-10.6)
[2019-02-26 05:54] LABS: African American GFR (CKD) >90 (>60 ml/min/1.73 sqM); Anion Gap 3 mmol/L; Blood Urea Nitrogen 16 mg/dL (7-17); Calcium 7.7 mg/dL (8.4-10.2); Carbon Dioxide 30 mmol/L (22-30); Chloride 108 mmol/L (98-107); Glucose 122 mg/dL (74-99); Non-African American GFR(CKD) 82 (>60 ml/min/1.73 sqM); Sodium 141 mmol/L (137-145)
[2019-02-26] MEDS: LEVOTHYROXINE 100 MCG TAB PO SCH (06:20)
[2019-02-26] MEDS: SODIUM CHLORIDE 0.9% 1,000 ML IV SCH (06:20)
[2019-02-26] MEDS: PANTOPRAZOLE 40 MG TABLET PO SCH (06:20)
[2019-02-26 06:42] LABS: Glucose,Whole Blood 134 mg/dL (75-99)
[2019-02-26] MEDS ORDERED: MULTIVITAMINS, THERA 1 EACH TAB PO SCH (09:00)
[2019-02-26] MEDS ORDERED: CHOLECALCIFEROL 1,000 UNIT TAB PO SCH (09:00)
--- NOTE | 2019-02-26 09:42 | P.PN ---
Subjective Progress Note Date: 02/26/19 A pleasant 63-year-old female patient was transferred from [facility] because of GI bleeding. The patient has had a previous Immanuel-en-Y gastric bypass surgery that was done in the year 2017 and since then the patient has lost more than 100 pounds. This was done by Dr. Dixon. She has had previous colonoscopy that showed diverticulosis. The patient had 2 large bouts of maroon colored stool at home. She presented herself to the emergency department at [facility] were she had an additional 2 episodes on this made her quite lightheaded. Her initial hemoglobin was 14 and she dropped to a hemoglobin of 10.4. During the process, she did not have any chest pain. She maintain a decent blood pressure. No tachycardia. She received a total of 1 L of IV fluids in the emergency and following that the patient got moved to the ICU where she was placed on normal saline 35 mL an hour. No nausea. No vomiting. No abdominal pain. No history of colon cancer. No coffee-ground emesis. No hematemesis. She is laying comfortably in bed. For now she is nothing by mouth. No history of alcoholism. She does not take any form of antiplatelet agents or nonsteroidal anti-inflammatory medications. On 02/26/2019 I'm seeing the patient for a follow-up. And pleased to report tracie t there are no episodes of GI bleed and the patient's hemoglobin was at 9.4 and has been stable. The plan is to proceed with an EGD and a colonoscopy today. She remains nothing by mouth for now. He is hemodynamically stable. She is on IV fluids and it is running at 75 mL an hour. Objective - Vital Signs Vital signs: Vital Signs Temp 98.0 F 02/26/19 08:00 Pulse 70 02/26/19 09:00 Resp 14 02/26/19 09:00 BP 103/59 02/26/19 09:00 Pulse Ox 94 L 02/26/19 09:00 Intake & Output 02/25/19 02/26/19 02/26/19 18:59 06:59 18:59 Intake Total 675 900 225 Output Total 1000 1650 600 Balance -325 -750 -375 Weight 115 kg 118.9 kg Intake: IV 900 225 Sodium Chloride 0.9% 1, 900 225 000 ml @ 75 mls/hr IV . [id number] [facility] Rx#:[id number] Intake, IV Titration 675 Amount Sodium Chloride 0.9% 1, 675 000 ml @ 75 mls/hr IV . [id number] [facility] Rx#:[id number] Output: Urine 1000 1650 600 Other: # Bowel Movements 1 1 - Exam The patient appeared well nourished and normally developed. Vital signs as documented. Head exam is unremarkable. No scleral icterus or corneal arcus noted. Neck is without jugular venous distension, thyromegaly, or carotid bruits. Carotid upstrokes are brisk bilaterally. Lungs are clear to auscultation and percussion. Cardiac exam reveals the PMI to be normally sized and situated. Rhythm is regular. First and second heart sounds normal. No murmurs, rubs or gallops. Abdominal exam reveals normal bowel sounds, no masses, no organomegaly and no aortic enlargement. Extremities are nonedematous and both femoral and pedal pulses are normal. - Labs CBC & Chem 7: 02/26/19 05:21 02/26/19 05:23 Labs: Abnormal Lab Results - Last 24 Hours (Table) 02/25/19 02/25/19 02/25/19 Range/Units 00:27 04:55 11:30 WBC 15.5 H 13.9 H (3.8-10.6) k/uL RBC 3.42 L (3.80-5.40) m/uL Hgb 10.7 L (11.4-16.0) gm/dL Hct 32.7 L (34.0-46.0) % Plt Count (150-450) k/uL Neutrophils # 13.5 H 12.0 H (1.3-7.7) k/uL Chloride (98-107) mmol/L Glucose (74-99) mg/dL POC Glucose (mg/dL) 141 H (75-99) mg/dL Calcium (8.4-10.2) mg/dL 02/25/19 02/25/19 02/25/19 Range/Units 12:07 18:33 20:40 WBC 11.9 H (3.8-10.6) k/uL RBC 3.05 L 3.18 L (3.80-5.40) m/uL Hgb 9.8 L 10.0 L (11.4-16.0) gm/dL Hct 28.7 L 30.0 L (34.0-46.0) % Plt Count 140 L 140 L (150-450) k/uL Neutrophils # 8.9 H (1.3-7.7) k/uL Chloride (98-107) mmol/L Glucose (74-99) mg/dL POC Glucose (mg/dL) 121 H (75-99) mg/dL Calcium (8.4-10.2) mg/dL 02/26/19 02/26/19 02/26/19 Range/Units 00:12 05:21 05:23 WBC (3.8-10.6) k/uL RBC 3.06 L 2.99 L (3.80-5.40) m/uL Hgb 9.7 L 9.4 L (11.4-16.0) gm/dL Hct 28.5 L 28.0 L (34.0-46.0) % Plt Count 132 L 110 L (150-450) k/uL Neutrophils # (1.3-7.7) k/uL Chloride 108 H (98-107) mmol/L Glucose 122 H (74-99) mg/dL POC Glucose (mg/dL) (75-99) mg/dL Calcium 7.7 L (8.4-10.2) mg/dL 02/26/19 Range/Units 06:40 WBC (3.8-10.6) k/uL RBC (3.80-5.40) m/uL Hgb (11.4-16.0) gm/dL Hct (34.0-46.0) % Plt Count (150-450) k/uL Neutrophils # (1.3-7.7) k/uL Chloride (98-107) mmol/L Glucose (74-99) mg/dL POC Glucose (mg/dL) 134 H (75-99) mg/dL Calcium (8.4-10.2) mg/dL Assessment and Plan Plan: 1 acute GI bleeding of a lower GI source, most likely related to a diverticular bleed. Hemoglobin is at 9.4 on today's evaluation. The patient was fairly of any further episodes of bleeding. She is scheduled to have an EGD and colonoscopy today. 2 history of obesity post gastric bypass surgery with significant weight loss 3 acid reflux 4 history of thyroid lesions/cancer post-thyroidectomy 5 hyperlipidemia 6 diabetes mellitus type 2 7 history of depression 8 osteoarthritis involving the bilateral hips 9 vitamin D deficiency 10 hypertension 11 history of anemia Plan Fluids. Keep the patient nothing by mouth. IV Protonix. EGD and colonoscopy today. If negative, she'll be discharged home to be followed up on outpatient basis.
[2019-02-26 11:39] LABS: Glucose,Whole Blood 120 mg/dL (75-99)
[2019-02-26 11:50] VITALS: TEMP 98.3
[2019-02-26] MEDS ORDERED: IV FLUID CONTINUATION 1,000 ML IV ONE (12:35)
--- NOTE | 2019-02-26 13:06 | P.PCN ---
Date of Procedure: 02/26/19 Description of Procedure: PREOPERATIVE DIAGNOSES: 1. Gastrointestinal hemorrhage 2. History of gastric bypass 3. Morbid obesity due to excess calories, BMI 45.0 4. History of rectal bleeding POSTOPERATIVE DIAGNOSES: 1. Gastrointestinal hemorrhage 2. History of gastric bypass 3. Morbid obesity due to excess calories, BMI 45.0 4. History of rectal bleeding PROCEDURE PERFORMED: Esophagogastrojejunoscopy. SURGEON: Qian Murray MD ANESTHESIA: MAC. INDICATIONS: The patient is a 63-year-old female with prior history of Immanuel-en-Y gastric bypass who presents with gastrointestinal hemorrhage and lower GI bleed. Upper endoscopy was offered for evaluation of source. Informed consent was obtained DESCRIPTION: Patient was brought to the endoscopy suite and laid in the left lateral decubitus position. After adequate IV sedation, a bite block was placed. An Olympus gastroscope was passed along the posterior oropharynx down to the distal esophagus where the squamocolumnar junction was found in unremarkable. The scope was advanced 60 cm from the incisors. No evidence of foreign body was found. No evidence of active gastrojejunal ulcerations were encountered. No blood was found within the gastric pouch. The GI tract was desufflated. The patient tolerated the procedure well. FINDINGS: 1. No acute gastrojejunal ulceration. 2. No foreign body found along the anastomosis. 3. No source for GI bleed along the upper GI tract. PLAN: 1. Recommend upper endoscopy as needed. 2. Will proceed lower endoscopy.
--- NOTE | 2019-02-26 13:11 | P.PCN ---
Date of Procedure: 02/26/19 Description of Procedure: PREOPERATIVE DIAGNOSIS: Lower GI bleeding with gastrointestinal hemorrhage POSTOPERATIVE DIAGNOSIS: Lower GI bleeding with gastrointestinal hemorrhage Severe diffuse scattered diverticulosis External hemorrhoids, grade 3 without inflammation or bleeding Internal hemorrhoids, grade 2 without inflammation or bleeding OPERATION: Colonoscopy to the ascending colon SURGEON: Qian Murray MD. ANESTHESIA: MAC. INDICATIONS: The patient is a 63-year-old female who presented with acute lower GI bleeding including gastrointestinal hemorrhage. Benefits and risks were described and informed consent was obtained. DESCRIPTION OF PROCEDURE: The patient had undergone NuLytelyprep. She had been brought into the operating room and laid in the left lateral decubitus position. After adequate intravenous sedation, the rectum was examined with 2% lidocaine jelly. External hemorrhoids were encountered. The rectal tone was within normal limits. No lesions were palpated in the rectal vault. An Olympus colonoscope was advanced to the ascending colon. The prep was fair with dark brown stool. No active bleeding was found throughout the entire colon. No residual blood was found. Severe scattered diverticulosis was encountered. No colonic polyps were found. No evidence of focal colitis was found. Retroflexion of the scope demonstrated grade 2 internal hemorrhoids without active bleeding or inflammation. The colon was desufflated. The patient had tolerated the procedure well. Withdrawal time was over 6 minutes. FINDINGS: Aronchick preparation quality scale 3 (1-5) Internal hemorrhoids, grade 2 External prolapsed hemorrhoids, grade 3 No arteriovenous malformations. No adenomatous polyps. No focal colitis. No active source of GI bleed. RECOMMENDATIONS: 1. Lower endoscopy as needed. 2. Likely source of prior bleeding resolved diverticular bleed completely res olved 3. Advance diet as tolerated 4. Patient stable from a surgical standpoint for discharge once medically stable Plan - Discharge Summary Discharge Rx Participant: Yes New Discharge Prescriptions: No Action Omeprazole [PriLOSEC] 20 mg PO AC-BID Levothyroxine Sodium [Synthroid] 200 mcg PO QAM Multivitamins, Thera [Multivitamin (formulary)] 1 tab PO DAILY Calcium Citrate 250 mg PO TID Vitamin A Acetate [Vitamin A] 10,000 unit SL DAILY Cholecalciferol (Vitamin D3) [Vitamin D3] 10,000 unit PO DAILY buPROPion XL [Wellbutrin Xl] 150 mg PO QAM Zinc 50 mg PO BID amLODIPine [Norvasc] 10 mg PO DAILY Discharge Medication List Omeprazole [PriLOSEC] 20 mg PO AC-BID 03/10/16 [History] Levothyroxine Sodium [Synthroid] 200 mcg PO QAM 05/04/17 [History] Calcium Citrate 250 mg PO TID 01/30/18 [History] Multivitamins, Thera [Multivitamin (formulary)] 1 tab PO DAILY 01/30/18 [Histor y] Cholecalciferol (Vitamin D3) [Vitamin D3] 10,000 unit PO DAILY 03/20/18 [History] Vitamin A Acetate [Vitamin A] 10,000 unit SL DAILY 03/20/18 [History] Zinc 50 mg PO BID 07/29/18 [History] buPROPion XL [Wellbutrin Xl] 150 mg PO QAM 07/29/18 [History] amLODIPine [Norvasc] 10 mg PO DAILY 02/25/19 [History] Follow up Appointment(s)/Referral(s): Stephy Harris MD [Primary Care Provider] - 1 Week Bariat[facility] [place], [place] [NON-STAFF] - 1 Week
[2019-02-26 15:29] VITALS: BP 134/65; PULSE 75; RESP 17
[2019-02-26] MEDS: buPROPion XL 150 MG TAB.ER.24H PO SCH (15:29)
[2019-02-26] MEDS: VITAMIN A 10,000 UNIT CAPSULE PO SCH (15:29)
[2019-02-26] MEDS: CALCIUM CARBONATE 500 MG CHEWABLE PO SCH (15:29)
[2019-02-26] MEDS: ZINC SULFATE 220 MG CAP PO SCH (15:30)
--- NOTE | 2019-02-26 23:20 | DS ---
DISCHARGE SUMMARY DATE OF SERVICE: 02/26/2019 FINAL DIAGNOSES: 1. Acute lower gastrointestinal bleeding with acute blood loss anemia, possibly from diverticular bleed. 2. Status post colonoscopy and esophagogastroduodenoscopy. 3. History of diabetes mellitus, type 2. 4. Gastroesophageal reflux disease. 5. Hypertension. 6. Hyperlipidemia. 7. Hiatal hernia. 8. History of diverticulitis. 9. History of bariatric surgery. 10.History of depression. DISCHARGE DISPOSITION: The patient will be discharged in stable condition with guarded prognosis. Total time taken 35 minutes. HISTORY OF PRESENT ILLNESS: This 63-year-old woman with a past medical history of multiple medical problems, as mentioned earlier, being followed by Dr. Stephy Harris in the outpatient setting, was admitted with features of lower GI bleed. Dr. Murray did the EGD and colonoscopy. Colonoscopy showed extensive diverticula. Diverticular bleeding was presumed; however, currently there is no active bleed. Hemoglobin is 9.5. Patient is keen on going home. Surgery cleared the patient for discharge. On exam, vitals are stable. CARDIOVASCULAR SYSTEM: S1, S2 muffled. ABDOMEN: Soft, non-tender. NERVOUS SYSTEM: No focal deficit. DISCHARGE ADVICE AND MEDICATIONS: 1. Diet is cardiac. 2. Activity limited until followup. 3. Avoid NSAIDs. 4. Calcium citrate 250 mg p.o. t.i.d. 5. Multivitamins 1 p.o. daily. 6. Norvasc 10 mg p.o. daily. 7. Prilosec 20 mg p.o. b.i.d. 8. Synthroid 200 mcg each morning. 9. Vitamin A 10,000 sublingually daily. 10.Vitamin D3 10,000 daily. 11.Wellbutrin XL 150 mg each morning. 12.Zinc 50 mg p.o. b.i.d. Once again, the patient will be discharged in stable condition with guarded prognosis. Total time taken 35 minutes. MMODL / IJN: [id number] /
== END 2019-02-26 16:06 | disposition home or self-care (01) | DRG 378 ==
LOC: EC 23:56 → 3SCARD 02-25 02:55 → 2SICU 02-25 07:42
PROVIDERS: ADMIT Hospitalist; ATTEND Hospitalist
PROC: 0DJ08ZZ Inspection of Upper Intestinal Tract, Via Natural or Artificial Opening Endoscopic (ICD-10-PCS; principal; 2019-02-26 12:25)
PROC: 0DJD8ZZ Inspection of Lower Intestinal Tract, Via Natural or Artificial Opening Endoscopic (ICD-10-PCS; principal; 2019-02-26 12:25)
DX: K57.91 Diverticulosis of intestine, part unspecified, without perforation or abscess with bleeding (principal); D62 Acute posthemorrhagic anemia; Z68.42 Body mass index [BMI] 45.0-49.9, adult; E11.9 Type 2 diabetes mellitus without complications; E66.01 Morbid (severe) obesity due to excess calories; E78.5 Hyperlipidemia, unspecified; E55.9 Vitamin D deficiency, unspecified; E89.0 Postprocedural hypothyroidism; F32.9 Major depressive disorder, single episode, unspecified; I10 Essential (primary) hypertension; K21.9 Gastro-esophageal reflux disease without esophagitis; K44.9 Diaphragmatic hernia without obstruction or gangrene; K64.8 Other hemorrhoids; Z79.890 Hormone replacement therapy; Z79.899 Other long term (current) drug therapy; Z80.3 Family history of malignant neoplasm of breast; Z82.49 Family history of ischemic heart disease and other diseases of the circulatory system; Z87.891 Personal history of nicotine dependence; Z98.84 Bariatric surgery status
CPT/HCPCS: 43235; 45378; 80048; 80053; 83605; 83735; 85025; 85610; 85730; 86850; 86900; 86901

== ENCOUNTER 2019-02-28 10:38 | Inpatient (IN) | payer OTHER ==
[2019-02-28] MEDS ORDERED: ONDANSETRON 4 MG/2 ML VIAL IVP STA (11:19)
[2019-02-28 11:50] LABS: Basophils % (A) 0 %; Eosinophils # (A) 0.1 k/uL (0-0.7); Eosinophils % (A) 1 %; HCT 21.2 % (34.0-46.0); Lymphocytes # (A) 1.1 k/uL (1.0-4.8); Lymphocytes % (A) 11 %; MCH 31.5 pg (25.0-35.0); MCHC 33.3 g/dL (31.0-37.0); MCV 94.6 fL (80.0-100.0); Mean Platelet Volume 8.4; Monocytes # (A) 0.4 k/uL (0-1.0); Monocytes % (A) 4 %; Neutrophils # (A) 7.7 k/uL (1.3-7.7); Neutrophils % (A) 83 %; RBC 2.24 m/uL (3.80-5.40); RDW 13.7 % (11.5-15.5); WBC 9.3 k/uL (3.8-10.6)
[2019-02-28 11:56] LABS: HGB 7.1 gm/dL (11.4-16.0); Platelet Count 174 k/uL (150-450)
[2019-02-28] MEDS ORDERED: NALOXONE 0.4 MG/ML 1 ML VIAL IV PRN (13:23)
--- NOTE | 2019-02-28 13:39 | ED ---
GI Bleed HPI - General Chief complaint: GI Bleed Stated complaint: Gi bleed Time Seen by Provider: 02/28/19 10:38 Source: patient, RN/MD, EMS, old records reviewed Mode of arrival: EMS Limitations: no limitations - History of Present Illness Initial comments: This is a 63-year-old female with a history of GI bleeding and did have a colonoscopy done which was apparently negative she has a history of a Immanuel-en-Y. Who was seen at [facility] this morning after having recurrent GI bleeding which appears be lower. Patient did have a hemoglobin level of was over 10 she did have apparent episodes of hypo-tension however. Patient was given IV fluids and route repeat hemoglobin in this facility was 7.1. Patient still had bleeding per rectum. MD complaint: gross hematochezia - Related Data Home Medications Medication Instructions Recorded Confirmed Levothyroxine Sodium [Synthroid] 200 mcg PO QAM 05/04/17 02/28/19 Calcium Citrate 250 mg PO TID 01/30/18 02/28/19 Multivitamins, Thera [Multivitamin 1 tab PO DAILY 01/30/18 02/28/19 (formulary)] Cholecalciferol (Vitamin D3) 10,000 unit PO DAILY 03/20/18 02/28/19 [Vitamin D3] Vitamin A Acetate [Vitamin A] 10,000 unit SL DAILY 03/20/18 02/28/19 Zinc 50 mg PO BID 07/29/18 02/28/19 buPROPion XL [Wellbutrin XL] 150 mg PO QAM 07/29/18 02/28/19 amLODIPine [Norvasc] 10 mg PO DAILY 02/25/19 02/28/19 Atorvastatin [Lipitor] 20 mg PO DAILY 02/28/19 02/28/19 Cyanocobalamin [Vitamin B-12] 500 mcg PO DAILY 02/28/19 02/28/19 Allergies Allergy/AdvReac Type Severity Reaction Status Date / Time prednisone Allergy Rash/Hives Verified 02/28/19 13:02 Review of Systems ROS Statement: Those systems with pertinent positive or pertinent negative responses have been documented in the HPI. ROS Other: All systems not noted in ROS Statement are negative. Past Medical History Past Medical History: Diabetes Mellitus, GERD/Reflux, GI Bleed, Hyperlipidemia, Hypertension, Renal Disease, Thyroid Disorder Additional Past Medical History / Comment(s): Hiatal hernia, diverticulitis with lower GI bleed, gastric stricture/dysphagia with dilation, gastric benign polyp, NIDDM type II-no longer on meds since wt loss, R nephrectomy c/t congenital defect, benign thyroid nodules-thyroidectomy. History of Any Multi-Drug Resistant Organisms: None Reported Past Surgical History: Adenoidectomy, Bariatric Surgery, Breast Surgery, Cholecystectomy, Tonsillectomy, Tubal Ligation Additional Past Surgical History / Comment(s): R nephrectomy/ureterectomy, thyroidectomy, immanuel en Y gastric bypass, EGD with dilation, colonoscopy, hysteroscopy D&C, R breast benign biopsy Past Anesthesia/Blood Transfusion Reactions: Motion Sickness, Postoperative Nausea & Vomiting (PONV) Past Psychological History: Depression Smoking Status: Former smoker - Past Family History Father Family Medical History: Cancer Additional Family Medical History / Comment(s): LUNG Mother Family Medical History: Cancer Additional Family Medical History / Comment(s): BREAST Sister(s) Family Medical History: Cancer Additional Family Medical History / Comment(s): 2 SISTER HAD BREAST CANCER Brother(s) Family Medical History: Myocardial Infarction (NM) Additional Family Medical History / Comment(s): Brother is living. He had a NM at the age of 50yrs. General Exam - General Exam Comments Initial Comments: This is a well-developed well-nourished awake alert oriented 3 female Limitations: no limitations General appearance: alert, anxious Head exam: Present: atraumatic, normocephalic, normal inspection Eye exam: Present: normal appearance, PERRL, EOMI. Absent: scleral icterus, conjunctival injection, periorbital swelling ENT exam: Present: normal exam, mucous membranes moist Neck exam: Present: normal inspection. Absent: tenderness, meningismus, lymphadenopathy Respiratory exam: Present: normal lung sounds bilaterally. Absent: respiratory distress, wheezes, rales, rhonchi, stridor Cardiovascular Exam: Present: regular rate, normal rhythm, normal heart sounds. Absent: systolic murmur, diastolic murmur, rubs, gallop, clicks GI/Abdominal exam: Present: soft, normal bowel sounds. Absent: distended, tenderness, guarding, rebound, rigid Rectal exam: Present: deferred, other (Gross dark bloody stool seen in the commode) Extremities exam: Present: normal inspection, full ROM, normal capillary refill. Absent: tenderness, pedal edema, joint swelling, calf tenderness Back exam: Present: normal inspection Neurological exam: Present: alert, oriented X3, CN II-XII intact Psychiatric exam: Present: normal affect, normal mood Skin exam: Present: warm, dry, intact, normal color. Absent: rash Course Vital Signs 02/28/19 02/28/19 02/28/19 10:41 11:17 12:42 Temperature 98.2 F Pulse Rate 85 77 77 Respiratory 18 18 16 Rate Blood Pressure 102/73 118/84 99/57 O2 Sat by Pulse 98 100 100 Oximetry Medical Decision Making - Medical Decision Making I did review the materials from [facility] and the previous admission. The case was discussed with the patient family as well as with Dr. Swann and with Dr. Chapman was covering for Dr. Dixon. Patient will be admitted also Dr. Booker will be consulted per Dr. Swann. - Lab Data Result diagrams: 02/28/19 11:17 Lab Results 02/28/19 Range/Units 11:17 WBC 9.3 (3.8-10.6) k/uL RBC 2.24 L (3.80-5.40) m/uL Hgb 7.1 L D (11.4-16.0) gm/dL Hct 21.2 L (34.0-46.0) % MCV 94.6 (80.0-100.0) fL MCH 31.5 (25.0-35.0) pg MCHC 33.3 (31.0-37.0) g/dL RDW 13.7 (11.5-15.5) % Plt Count 174 D (150-450) k/uL Neutrophils % 83 % Lymphocytes % 11 % Monocytes % 4 % Eosinophils % 1 % Basophils % 0 % Neutrophils # 7.7 (1.3-7.7) k/uL Lymphocytes # 1.1 (1.0-4.8) k/uL Monocytes # 0.4 (0-1.0) k/uL Eosinophils # 0.1 (0-0.7) k/uL Basophils # 0.0 (0-0.2) k/uL Disposition Clinical Impression: Hematochezia, Lower GI bleed, Anemia Disposition: ADMITTED IP TO THIS HOSP Condition: Serious Referrals: Stephy Harris MD [Primary Care Provider] - 1-2 days
[2019-02-28 14:44] LABS: Glucose,Whole Blood 166 mg/dL (75-99)
[2019-02-28] MEDS ORDERED: ONDANSETRON 4 MG/2 ML VIAL IVP PRN (15:05)
[2019-02-28] MEDS: SODIUM CHLORIDE 0.9% 1,000 ML IV SCH ×2 (15:14→20:10)
--- NOTE | 2019-02-28 15:29 | P.CNPUL ---
History of Present Illness Consult date: 02/28/19 Requesting physician: Stefano Burden Reason for consult: other Chief complaint: GI blood loss anemia History of present illness: This is a 63-year-old white female patient of Dr. Harris, with past medical history Immanuel-en-Y gastric bypass surgery in 2018, significant weight loss since surgery, morbid obesity, acid reflux, thyroidectomy for history of thyroid lesions, diabetes mellitus type 2, hyperlipidemia, depression, osteoarthritis, vitamin D deficiency, who had a recent hospitalization for acute GI bleeding of a lower GI source. Patient underwent colonoscopy on 02/26/2019 and colonoscopy showed severe diffuse scattered diverticulosis, external and internal hemorrhoids without inflammation or bleeding. Patient was discharged home on 02/26/2019 following the procedure. On 02/28/2019 patient started having bright red dose per rectum, had a total of 2 at home, she felt lightheaded, hence patient went to [facility] for evaluation. Patient denies any hematemesis. No syncopal episodes, no shortness of breath or chest pain. Patient's last hemoglobin on 02/26/2019 was 9.4, today's hemoglobin is 7.1, with episodes of hypotension, patient was given a total of 1 L fluid bolus, and 2 units of packed red blood cells been ordered. She is on 2 L of oxygen, with a pulse ox of 100%, current blood pressure is 103/52, patient is afebrile, not tachycardic, sinus mechanism on the monitor with a rate of 78. No complaints of abdominal pain, abdomen is soft and nontender, patient is awake and alert, hemodynamically patient is stable, awaiting transfusion with 2 units of packed red blood cells. Surgical evaluation is pending Review of Systems All systems: negative Constitutional: Denies chills, Denies fever Eyes: denies blurred vision, denies pain Ears, nose, mouth and throat: Denies headache, Denies sore throat Cardiovascular: Denies chest pain, Denies shortness of breath Respiratory: Denies cough Gastrointestinal: Reports hematochezia, Denies abdominal pain, Denies diarrhea, Denies nausea, Denies vomiting Genitourinary: Denies dysuria, Denies hematuria Musculoskeletal: Denies myalgias Integumentary: Denies pruritus, Denies rash Neurological: Denies numbness, Denies weakness Psychiatric: Denies anxiety, Denies depression Endocrine: Denies fatigue, Denies weight change Past Medical History Past Medical History: Diabetes Mellitus, GERD/Reflux, GI Bleed, Hyperlipidemia, Hypertension, Renal Disease, Thyroid Disorder Additional Past Medical History / Comment(s): Hiatal hernia, diverticulitis with lower GI bleed, gastric stricture/dysphagia with dilation, gastric benign polyp, NIDDM type II-no longer on meds since wt loss, R nephrectomy r/t congenital defect, benign thyroid nodules-thyroidectomy. History of Any Multi-Drug Resistant Organisms: None Reported Past Surgical History: Adenoidectomy, Bariatric Surgery, Breast Surgery, Cholecystectomy, Tonsillectomy, Tubal Ligation Additional Past Surgical History / Comment(s): R nephrectomy/ureterectomy, thyroidectomy, immanuel en Y gastric bypass, EGD with dilation, colonoscopy, hysteroscopy D&C, R breast benign biopsy Past Anesthesia/Blood Transfusion Reactions: No Reported Reaction Past Psychological History: Depression Additional Psychological History / Comment(s): Pt resides with her spouse, her brother and their adult daughter. She is independendt. Smoking Status: Former smoker Past Alcohol Use History: None Reported Additional Past Alcohol Use History / Comment(s): Pt was a light smoker from 1973 until 1984-3 cigarettes a day. Past Drug Use History: None Reported - Past Family History Father Family Medical History: Cancer Additional Family Medical History / Comment(s): LUNG Mother Family Medical History: Cancer Additional Family Medical History / Comment(s): BREAST Sister(s) Family Medical History: Cancer Additional Family Medical History / Comment(s): 2 SISTER HAD BREAST CANCER Brother(s) Family Medical History: Myocardial Infarction (HI) Additional Family Medical History / Comment(s): Brother is living. He had a HI at the age of 50yrs. Medications and Allergies Home Medications Medication Instructions Recorded Confirmed Type Levothyroxine Sodium [Synthroid] 200 mcg PO QAM 05/04/17 02/28/19 History Calcium Citrate 250 mg PO TID 01/30/18 02/28/19 History Multivitamins, Thera [Multivitamin 1 tab PO DAILY 01/30/18 02/28/19 History (formulary)] Cholecalciferol (Vitamin D3) 10,000 unit PO DAILY 03/20/18 02/28/19 History [Vitamin D3] Vitamin A Acetate [Vitamin A] 10,000 unit SL DAILY 03/20/18 02/28/19 History Zinc 50 mg PO BID 07/29/18 02/28/19 History buPROPion XL [Wellbutrin XL] 150 mg PO QAM 07/29/18 02/28/19 History amLODIPine [Norvasc] 10 mg PO DAILY 02/25/19 02/28/19 History Atorvastatin [Lipitor] 20 mg PO DAILY 02/28/19 02/28/19 History Cyanocobalamin [Vitamin B-12] 500 mcg PO DAILY 02/28/19 02/28/19 History Allergies Allergy/AdvReac Type Severity Reaction Status Date / Time prednisone Allergy Rash/Hives Verified 02/28/19 13:02 Physical Exam Vitals: Vital Signs Temp Pulse Resp BP Pulse Ox 02/28/19 14:29 97.4 F L 12 100 02/28/19 13:30 78 15 103/52 100 02/28/19 13:00 75 14 99/57 100 02/28/19 12:45 76 15 99/57 100 02/28/19 12:42 77 16 99/57 100 02/28/19 11:17 77 18 118/84 100 02/28/19 10:41 98.2 F 85 18 102/73 98 Intake and Output 02/28/19 02/28/19 02/28/19 06:59 14:59 22:59 Other: Weight 117 kg GENERAL EXAM: Alert, pleasant, 63-year-old white female, 2 L of oxygen, with pulse ox in the 100% comfortable in no apparent distress. HEAD: Normocephalic/atraumatic. EYES: Normal reaction of pupils, equal size. Conjunctiva pink, sclera white. NOSE: Clear with pink turbinates. THROAT: No erythema or exudates. NECK: No masses, no JVD, no thyroid enlargement, no adenopathy. CHEST: No chest wall deformity. Symmetrical expansion. LUNGS: Equal air entry with no crackles, wheeze, rhonchi or dullness. CVS: Regular rate and rhythm, normal S1 and S2, no gallops, no murmurs, no rubs ABDOMEN: Soft, nontender. No hepatosplenomegaly, normal bowel sounds, no guarding or rigidity. EXTREMITIES: No clubbing, no edema, no cyanosis, 2+ pulses and upper and lower extremities. MUSCULOSKELETAL: Muscle strength and tone normal. SPINE: No scoliosis or deformity SKIN: No rashes CENTRAL NERVOUS SYSTEM: Alert and oriented -3. No focal deficits, tone is normal in all 4 extremities. PSYCHIATRIC: Alert and oriented -3. Appropriate affect. Intact judgment and insight. Results - Laboratory Findings CBC and BMP: 02/28/19 11:17 Abnormal lab findings: Abnormal Labs 02/28/19 02/28/19 11:17 14:42 RBC 2.24 L Hgb 7.1 L D Hct 21.2 L POC Glucose (mg/dL) 166 H Assessment and Plan Plan: Assessment: #1. Acute GI blood loss anemia, would likely source of lower GI tract, likely diverticular bleed #2. Recent hospitalization for lower GI bleeding, patient underwent endoscopy on 02/26/2019 which showed severe diffuse diverticulosis, and no active bleeding, external and internal hemorrhoids #3. Morbid obesity, status post Immanuel-en-Y gastric bypass surgery in 2018 with significant weight loss #4. Diabetes mellitus type 2 #5. GERD/reflux #6. Hyperlipidemia #7. Hypertension #8. Thyroid nodules, status post resection #9. History of right nephrectomy #10. Former smoker Plan: Continue with PPI therapy, serial H&H's, patient has been given IV fluids in the emergency department with a total of 1 L of 0.9 normal saline, and maintenance IV is infusing at a rate of 125 ML per hour, she is awaiting transfusion with 2 units of packed red blood cells for symptomatic anemia related to acute lower GI bleeding. Awaiting surgical and GI service evaluation, she is nothing by mouth for now, tagged red blood cell scan is pending. She will remain in the intensive care unit for close hemodynamic monitoring, we'll continue to follow I performed a history & physical examination of the patient and discussed their management with my nurse practitioner, Olamide Naqvi. I reviewed the nurse practitioner's note and agree with the documented findings and plan of care. Lung sounds are positive for clear breath sounds. The findings and the impression was discussed with the patient. I attest to the documentation by the nurse practitioner. Time with Patient: Greater than 30
[2019-02-28 15:30] LABS: Albumin 2.1 g/dL (3.5-5.0); Calcium 6.6 mg/dL (8.4-10.2); Magnesium 1.7 mg/dL (1.6-2.3); Potassium 3.8 mmol/L (3.5-5.1); Total Bilirubin 0.3 mg/dL (0.2-1.3)
[2019-02-28] MEDS ORDERED: ALPRAZolam 0.25 MG TAB PO PRN (15:46)
[2019-02-28] MEDS ORDERED: HYDROmorphone 0.5 MG/0.5 ML SYRINGE IVP PRN (15:46)
[2019-02-28] MEDS ORDERED: HYDROcodone/APAP 5-325MG 1 EACH TAB PO PRN (15:46)
[2019-02-28] MEDS ORDERED: ACETAMINOPHEN TAB 500 MG TAB PO PRN (15:46)
--- NOTE | 2019-02-28 16:11 | XR ---
EXAMINATION TYPE: XR chest 1V portable DATE OF EXAM: 02/28/2019 CLINICAL HISTORY: CHF TECHNIQUE: Single frontal view of the chest is obtained. COMPARISON: None FINDINGS: There is no focal air space opacity, pleural effusion, or pneumothorax seen. The cardiac silhouette size is within normal limits. The osseous structures are intact. IMPRESSION: No acute process.
--- NOTE | 2019-02-28 16:48 | HP ---
HISTORY AND PHYSICAL DATE OF SERVICE: 02/28/2019 CHIEF COMPLAINT: GI bleed. HISTORY OF PRESENT ILLNESS: This 63-year-old woman with a past medical history of multiple medical problems, including diabetes mellitus, GERD, history of GI bleed, history of hypertension, hyperlipidemia, history of hypothyroidism, hiatal hernia, history of previous Immanuel-en-Y gastric bypass, being followed by Dr. Stephy Harris in the outpatient setting, was recently admitted with GI bleed. Extensive evaluation was conducted and Dr. Murray performed a colonoscopy that showed extensive diverticulosis without any active evidence of bleeding. Patient was treated symptomatically. Patient was discharged home. After going home, the patient had recurrent GI bleeding with passing of bright red and maroon-colored stool with some clots, and the patient went to [facility]. She had some apparent episodes of hypotension, also. The patient was given IV fluids and hemoglobin was found to be 7.1. The patient was transferred to [facility] and was admitted for further evaluation and treatment. The current hemoglobin is 7.1. There is no history of any fever, rigor or chills. No history of headache, loss of consciousness, seizures. The patient is admitted in the ICU. PAST MEDICAL HISTORY: 1. History of diabetes mellitus. 2. GERD. 3. GI bleed. 4. Hypertension. 5. Hyperlipidemia. 6. Hiatal hernia. 7. Adenoidectomy. 8. Bariatric surgery. 9. Depression. HOME MEDICATIONS: 1. Vitamin B12 500 mcg p.o. daily. 2. Wellbutrin 150 mg each morning. 3. Norvasc 10 mg p.o. daily. 4. Zinc 50 mg daily. 5. Vitamin A. 6. Multivitamins 1 p.o. daily. 7. Synthroid 200 mcg p.o. each morning. 8. Vitamin D3 10,000 daily. 9. Calcium citrate 250 mg p.o. t.i.d. 10.Lipitor 20 mg p.o. daily. ALLERGIES: PREDNISONE. FAMILY HISTORY: Lung cancer in the family. SOCIAL HISTORY: Previous history of smoking. No history of alcohol intake. No history of substance use. REVIEW OF SYSTEMS: ENT: No diminished hearing. No diminished vision. CARDIOVASCULAR SYSTEM: No angina, palpitations. RESPIRATORY SYSTEM: No cough, hemoptysis. GI: As mentioned earlier. : As mentioned earlier. NERVOUS SYSTEM: No numbness, weakness. ALLERGY/IMMUNOLOGY: No asthma, hayfever. MUSCULOSKELETAL: As mentioned earlier. HEMATOLOGY/ONCOLOGY: As mentioned earlier. ENDOCRINE: Hypothyroidism. CONSTITUTIONAL: As mentioned earlier. DERMATOLOGY: Negative. RHEUMATOLOGY: Negative. PSYCHIATRY: As mentioned earlier. PHYSICAL EXAMINATION: Patient alert and oriented x3. Pulse is 78, blood pressure 103/52, respiration 15, temperature 97.4, pulse ox 100% on 2 L nasal cannula. HEENT: Conjunctivae pale. Oral mucosa moist. NECK: No jugular venous distention. No carotid bruit. No lymph node enlargement. CARDIOVASCULAR SYSTEM: S1, S2 muffled. No S3. No S4. RESPIRATORY SYSTEM: Breath sounds diminished at the bases. No rhonchi. No crackles. ABDOMEN: Soft. Mild diffuse discomfort on palpation. No guarding or rigidity. Mildly obese. Bowel sounds present. No ascites. LEGS: No edema. No swelling. NERVOUS SYSTEM: Higher functions as mentioned earlier. Moves all 4 limbs. No focal motor or sensory deficit. LYMPHATICS: No lymph node palpable in neck, axillae or groin. SKIN: No ulcer, rash, bleeding. JOINTS: No active deforming arthropathy. LABS: WBC 9.3, hemoglobin 7.1. Sodium 139, potassium 3.8. CO2 is 20, calcium 6.6. Albumin is 2.1. ASSESSMENT: 1. Acute recurrent lower gastrointestinal bleeding with acute blood loss anemia. 2. History of recent lower gastrointestinal bleeding. 3. Recent colonoscopy that showed extensive colonic diverticulosis. 4. History of diabetes mellitus, type 2. 5. Gastroesophageal reflux disease. 6. Hypertension. 7. Hyperlipidemia. 8. History of gastric benign polyp. 9. History of adenoidectomy. 10.History of bariatric surgery in the form of Immanuel-en-Y gastric bypass. 11.History of esophagogastroduodenoscopy with dilatation. 12.Depression. 13.Remote history of nicotine dependence. 14.Obesity with body mass index of 44.3. RECOMMENDATIONS AND DISCUSSION: In this 63-year-old woman who presented with multiple complex medical issues, at this time I recommend to continue the current medications, continue with symptomatic treatment. I would recommend type and cross and at least one unit of blood transfusion. Other than that, repeat labs. Hemoglobin and hematocrit q.6. Will resume the home medications but hold off any anticoagulants and antiplatelet agents. Guarded prognosis. Further recommendations to follow. A copy of this dictation is being forwarded to Dr. Stephy Harris, who is the primary physician. MMODL / IJN: [id number] /
[2019-02-28 18:38] LABS: MCH 31.3 pg (25.0-35.0); MCHC 33.2 g/dL (31.0-37.0); MCV 94.2 fL (80.0-100.0); Mean Platelet Volume 8.5; Platelet Count 154 k/uL (150-450); RBC 1.92 m/uL (3.80-5.40); RDW 14.5 % (11.5-15.5); WBC 9.9 k/uL (3.8-10.6)
[2019-02-28] MEDS: PANTOPRAZOLE 40 MG/10 ML VIAL IV SCH (20:07)
[2019-02-28 20:28] LABS: Glucose,Whole Blood 111 mg/dL (75-99)
[2019-03-01 03:18] LABS: Basophils % (A) 1 %; Eosinophils # (A) 0.3 k/uL (0-0.7); Eosinophils % (A) 4 %; HCT 22.5 % (34.0-46.0); Lymphocytes # (A) 2.4 k/uL (1.0-4.8); Lymphocytes % (A) 30 %; MCH 31.1 pg (25.0-35.0); MCHC 34.4 g/dL (31.0-37.0); MCV 90.6 fL (80.0-100.0); Mean Platelet Volume 7.2; Monocytes # (A) 0.4 k/uL (0-1.0); Monocytes % (A) 5 %; Neutrophils # (A) 4.8 k/uL (1.3-7.7); Neutrophils % (A) 59 %; Platelet Count 131 k/uL (150-450); RBC 2.48 m/uL (3.80-5.40); RDW 15.1 % (11.5-15.5); WBC 8.1 k/uL (3.8-10.6)
[2019-03-01 03:24] LABS: HGB 7.7 gm/dL (11.4-16.0)
[2019-03-01 04:11] LABS: Calcium 6.9 mg/dL (8.4-10.2); Potassium 3.7 mmol/L (3.5-5.1)
[2019-03-01] MEDS: LEVOTHYROXINE 100 MCG TAB PO SCH (06:19)
[2019-03-01] MEDS: SODIUM CHLORIDE 0.9% 1,000 ML IV SCH ×2 (06:26→16:53)
[2019-03-01 06:41] LABS: Glucose,Whole Blood 132 mg/dL (75-99)
[2019-03-01] MEDS: PANTOPRAZOLE 40 MG/10 ML VIAL IV SCH ×2 (08:38→20:03)
[2019-03-01] MEDS: buPROPion XL 150 MG TAB.ER.24H PO SCH (08:39)
--- NOTE | 2019-03-01 10:59 | P.PN ---
Subjective Progress Note Date: 03/01/19 This is a 63-year-old white female patient of Dr. Harris, with past medical his tory Immanuel-en-Y gastric bypass surgery in 2018, significant weight loss since surgery, morbid obesity, acid reflux, thyroidectomy for history of thyroid lesions, diabetes mellitus type 2, hyperlipidemia, depression, osteoarthritis, vitamin D deficiency, who had a recent hospitalization for acute GI bleeding of a lower GI source. Patient underwent colonoscopy on 02/26/2019 and colonoscopy showed severe diffuse scattered diverticulosis, external and internal hemorrhoids without inflammation or bleeding. Patient was discharged home on 02/26/2019 following the procedure. On 02/28/2019 patient started having bright red dose per rectum, had a total of 2 at home, she felt lightheaded, hence patie nt went to [facility] for evaluation. Patient denies any hematemesis. No syncopal episodes, no shortness of breath or chest pain. Patient's last hemoglobin on 02/26/2019 was 9.4, today's hemoglobin is 7.1, with episodes of hypotension, patient was given a total of 1 L fluid bolus, and 2 units of packed red blood cells been ordered. She is on 2 L of oxygen, with a pulse ox of 100%, current blood pressure is 103/52, patient is afebrile, not tachycardic, sinus mechanism on the monitor with a rate of 78. No complaints of abdominal pain, abdomen is soft and nontender, patient is awake and alert, hemodynamically patient is stable, awaiting transfusion with 2 units of packed red blood cells. Surgical evaluation is pending On today's evaluation of 03/01/2019, the patient is still in the intensive care unit being monitored for GI bleed. Noted the patient came into the hospital b ecause of recurrent GI bleed and the hemoglobin dropped from 9.4 down to 7.1. Subsequently, in the evening, hemoglobin came down to 6 and the patient was given a total of 2 units of packed RBC and hemoglobin today is at 7.7. Note that we have not witnessed any further episodes of GI bleeding in her GI bleed is pretty much episodic at this point and it's painless. She is calm and comfortable. Her previous endoscopies that were done by Dr. Dixon at shown no evidence of any acute source of bleeding. For now we have a GI consultation and another surgical consultation on board. Note that her last endoscopies was done on 02/26/2019 and the patient was found to have external hemorrhoids grade 3 without inflammation, internal hemorrhoids grade 2 without inflammation, scattered diverticulosis. It was suspected that the bleeding back then was diverticular in nature. She is currently receiving IV fluids at the rate of 125 mL an hour of normal saline. She denies having any other specific complaints. No dizziness. No chest pain. No shortness of breath. Objective - Vital Signs Vital signs: Vital Signs Temp 98.0 F 03/01/19 08:00 Pulse 65 03/01/19 10:00 Resp 14 03/01/19 10:00 BP 110/62 03/01/19 10:00 Pulse Ox 94 L 03/01/19 10:00 Intake & Output 02/28/19 03/01/19 03/01/19 18:59 06:59 18:59 Intake Total 500 1805 500 Output Total 530 900 Balance 500 1275 -400 Weight 117 kg 117.48 kg 117.48 kg Intake: IV 500 1185 500 Sodium Chloride 0.9% 1, 500 1185 500 000 ml @ 125 mls/hr IV . Q8H [facility] Rx#:[id number] Blood Product 620 Rc As-1 Unit 310 [id number] Rc As-1 Unit 310 [id number] Output: Urine 530 900 Other: Voiding Method Bedpan Bedpan Bedpan # Voids 1 0 0 - Exam GENERAL EXAM: Alert, pleasant, 63-year-old white female, 2 L of oxygen, with pulse ox in the 100% comfortable in no apparent distress. HEAD: Normocephalic/atraumatic. EYES: Normal reaction of pupils, equal size. Conjunctiva pink, sclera white. NOSE: Clear with pink turbinates. THROAT: No erythema or exudates. NECK: No masses, no JVD, no thyroid enlargement, no adenopathy. CHEST: No chest wall deformity. Symmetrical expansion. LUNGS: Equal air entry with no crackles, wheeze, rhonchi or dullness. CVS: Regular rate and rhythm, normal S1 and S2, no gallops, no murmurs, no rubs ABDOMEN: Soft, nontender. No hepatosplenomegaly, normal bowel sounds, no guarding or rigidity. EXTREMITIES: No clubbing, no edema, no cyanosis, 2+ pulses and upper and lower extremities. MUSCULOSKELETAL: Muscle strength and tone normal. SPINE: No scoliosis or deformity SKIN: No rashes CENTRAL NERVOUS SYSTEM: Alert and oriented -3. No focal deficits, tone is normal in all 4 extremities. PSYCHIATRIC: Alert and oriented -3. Appropriate affect. Intact judgment and insight. - Labs CBC & Chem 7: 03/01/19 03:05 03/01/19 03:05 Labs: Abnormal Lab Results - Last 24 Hours (Table) 02/28/19 02/28/19 02/28/19 Range/Units 11:17 11:17 14:42 RBC 2.24 L (3.80-5.40) m/uL Hgb 7.1 L D (11.4-16.0) gm/dL Hct 21.2 L (34.0-46.0) % Plt Count (150-450) k/uL Chloride 115 H (98-107) mmol/L Carbon Dioxide 20 L (22-30) mmol/L BUN 18 H (7-17) mg/dL Glucose 180 H (74-99) mg/dL POC Glucose (mg/dL) 166 H (75-99) mg/dL Calcium 6.6 L (8.4-10.2) mg/dL Total Protein 4.0 L (6.3-8.2) g/dL Albumin 2.1 L (3.5-5.0) g/dL Crossmatch 02/28/19 02/28/19 02/28/19 Range/Units 15:01 17:58 20:27 RBC 1.92 L (3.80-5.40) m/uL Hgb 6.0 L* (11.4-16.0) gm/dL Hct 18.0 L* (34.0-46.0) % Plt Count (150-450) k/uL Chloride (98-107) mmol/L Carbon Dioxide (22-30) mmol/L BUN (7-17) mg/dL Glucose (74-99) mg/dL POC Glucose (mg/dL) 111 H (75-99) mg/dL Calcium (8.4-10.2) mg/dL Total Protein (6.3-8.2) g/dL Albumin (3.5-5.0) g/dL Crossmatch See Detail 03/01/19 03/01/1903/01/19 Range/Units 03:05 03:05 06:40 RBC 2.48 L (3.80-5.40) m/uL Hgb 7.7 L D (11.4-16.0) gm/dL Hct 22.5 L (34.0-46.0) % Plt Count 131 L (150-450) k/uL Chloride 116 H (98-107) mmol/L Carbon Dioxide (22-30) mmol/L BUN 18 H (7-17) mg/dL Glucose 110 H (74-99) mg/dL POC Glucose (mg/dL) 132 H (75-99) mg/dL Calcium 6.9 L (8.4-10.2) mg/dL Total Protein (6.3-8.2) g/dL Albumin (3.5-5.0) g/dL Crossmatch Assessment and Plan Plan: #1. Acute GI blood loss anemia, would likely source of lower GI tract, likely diverticular bleed and the she'll receive a total of 2 units of packed RBC. Hemodynamically stable for now. #2. Recent hospitalization for lower GI bleeding, patient underwent endoscopy on 02/26/2019 which showed severe diffuse diverticulosis, and no active bleeding, external and internal hemorrhoids #3. Morbid obesity, status post Immanuel-en-Y gastric bypass surgery in 2018 with significant weight loss #4. Diabetes mellitus type 2 #5. GERD/reflux #6. Hyperlipidemia #7. Hypertension #8. Thyroid nodules, status post resection #9. History of right nephrectomy #10. Former smoker Plan Still being monitored for GI bleed. Hemoglobin has dropped down to 7. Give her 2 units of packed RBCs. She is asymptomatic. General surgeries on the case. We'll continue to follow. Monitor the hemoglobin every 6 hours. We'll continue to follow. GI is on the case. She is still nothing by mouth. She is on sliding scale insulin coverage.
--- NOTE | 2019-03-01 11:39 | P.GSCN ---
History of Present Illness Consult date: 03/01/19 Reason for Consult: GI bleed History of present illness: Patient admitted through the ER yesterday with bright red blood per rectum. Patient had multiple episodes. Was seen at an outside hospital and transferred here. Patient's hemoglobin was 7 dropped to 6. She was given 2 units of packed RBCs. This morning's hemoglobin 7.7. No rectal bleeding in the last 12-16 hours. Denies abdominal pain. Recently hospitalized for similar issues. Thought to be related to diverticulosis. Patient states she had upper and lower endoscopy last week however the chart shows only colonoscopy? She is hungry. Tagged red blood cell scan was ordered however that was canceled as it appeared the bleeding had stopped. Review of Systems The patient denies any acute changes in vision or hearing, no dysphagia or odynophagia, no chest pain or shortness of breath, no dysuria or hematuria, no headache, no runny nose, no melena, no unexplained weight loss Past Medical History Past Medical History: Diabetes Mellitus, GERD/Reflux, GI Bleed, Hyperlipidemia, Hypertension, Renal Disease, Thyroid Disorder Additional Past Medical History / Comment(s): Hiatal hernia, diverticulitis with lower GI bleed, gastric stricture/dysphagia with dilation, gastric benign polyp, NIDDM type II-no longer on meds since wt loss, R nephrectomy r/t congenital defect, benign thyroid nodules-thyroidectomy History of Any Multi-Drug Resistant Organisms: None Reported Past Surgical History: Adenoidectomy, Bariatric Surgery, Breast Surgery, Cholecystectomy, Tonsillectomy, Tubal Ligation Additional Past Surgical History / Comment(s): R nephrectomy/ureterectomy, thyroidectomy, immanuel en Y gastric bypass, EGD with dilation, colonoscopy, hysteroscopy D&C, R breast benign biopsy; 12/2017 Immanuel-en-Y with Dr. Murray Past Anesthesia/Blood Transfusion Reactions: No Reported Reaction Past Psychological History: Depression Additional Psychological History / Comment(s): Pt resides with her spouse, her brother and their adult daughter. She is independendt. Smoking Status: Former smoker Past Alcohol Use History: None Reported Additional Past Alcohol Use History / Comment(s): Pt was a light smoker from 1973 until 1984-3 cigarettes a day. Past Drug Use History: None Reported - Past Family History Father Family Medical History: Cancer Additional Family Medical History / Comment(s): LUNG Mother Family Medical History: Cancer Additional Family Medical History / Comment(s): BREAST Sister(s) Family Medical History: Cancer Additional Family Medical History / Comment(s): 2 SISTER HAD BREAST CANCER Brother(s) Family Medical History: Myocardial Infarction ([place]) Additional Family Medical History / Comment(s): Brother is living. He had a [place] at the age of 50yrs. Medications and Allergies Home Medications Medication Instructions Recorded Confirmed Type Levothyroxine Sodium [Synthroid] 200 mcg PO QAM 05/04/17 02/28/19 History Calcium Citrate 250 mg PO TID 01/30/18 02/28/19 History Multivitamins, Thera [Multivitamin 1 tab PO DAILY 01/30/18 02/28/19 History (formulary)] Cholecalciferol (Vitamin D3) 10,000 unit PO DAILY 03/20/18 02/28/19 History [Vitamin D3] Vitamin A Acetate [Vitamin A] 10,000 unit SL DAILY 03/20/18 02/28/19 History Zinc 50 mg PO BID 07/29/18 02/28/19 History buPROPion XL [Wellbutrin XL] 150 mg PO QAM 07/29/18 02/28/19 History amLODIPine [Norvasc] 10 mg PO DAILY 02/25/19 02/28/19 History Atorvastatin [Lipitor] 20 mg PO DAILY 02/28/19 02/28/19 History Cyanocobalamin [Vitamin B-12] 500 mcg PO DAILY 02/28/19 02/28/19 History Allergies Allergy/AdvReac Type Severity Reaction Status Date / Time prednisone Allergy Rash/Hives Verified 02/28/19 13:02 Surgical - Exam Vital Signs Temp Pulse Resp BP Pulse Ox 98.2 F 85 18 102/73 98 02/28/19 10:41 02/28/19 10:41 02/28/19 10:41 02/28/19 10:41 02/28/19 10:41 Physical exam: General: Well-developed, well-nourished HEENT: Normocephalic, sclerae nonicteric Abdomen: Nontender, nondistended Extremities: No edema Neuro: Alert and oriented Results - Labs 03/01/19 03:05 03/01/19 03:05 Abnormal Lab Results - Last 24 Hours (Table) 02/28/19 02/28/19 02/28/19 Range/Units 11:17 11:17 14:42 RBC 2.24 L (3.80-5.40) m/uL Hgb 7.1 L D (11.4-16.0) gm/dL Hct 21.2 L (34.0-46.0) % Plt Count (150-450) k/uL Chloride 115 H (98-107) mmol/L Carbon Dioxide 20 L (22-30) mmol/L BUN 18 H (7-17) mg/dL Glucose 180 H (74-99) mg/dL POC Glucose (mg/dL) 166 H (75-99) mg/dL Calcium 6.6 L (8.4-10.2) mg/dL Total Protein 4.0 L (6.3-8.2) g/dL Albumin 2.1 L (3.5-5.0) g/dL Crossmatch 02/28/19 02/28/19 02/28/19 Range/Units 15:01 17:58 20:27 RBC 1.92 L (3.80-5.40) m/uL Hgb 6.0 L* (11.4-16.0) gm/dL Hct 18.0 L* (34.0-46.0) % Plt Count (150-450) k/uL Chloride (98-107) mmol/L Carbon Dioxide (22-30) mmol/L BUN (7-17) mg/dL Glucose (74-99) mg/dL POC Glucose (mg/dL) 111 H (75-99) mg/dL Calcium (8.4-10.2) mg/dL Total Protein (6.3-8.2) g/dL Albumin (3.5-5.0) g/dL Crossmatch See Detail 03/01/19 03/01/19 03/01/19 Range/Units 03:05 03:05 06:40 RBC 2.48 L (3.80-5.40) m/uL Hgb 7.7 L D (11.4-16.0) gm/dL Hct 22.5 L (34.0-46.0) % Plt Count 131 L (150-450) k/uL Chloride 116 H (98-107) mmol/L Carbon Dioxide (22-30) mmol/L BUN 18 H (7-17) mg/dL Glucose 110 H (74-99) mg/dL POC Glucose (mg/dL) 132 H (75-99) mg/dL Calcium 6.9 L (8.4-10.2) mg/dL Total Protein (6.3-8.2) g/dL Albumin (3.5-5.0) g/dL Crossmatch Diabetes panel 02/28/19 03/01/19 Range/Units 11: 03:05 Sodium 139 141 (137-145) mmol/L Potassium 3.8 3.7 (3.5-5.1) mmol/L Chloride 115 H 116 H (98-107) mmol/L Carbon Dioxide 20 L 22 (22-30) mmol/L BUN 18 H 18 H (7-17) mg/dL Creatinine 0.88 1.00 (0.52-1.04) mg/dL Glucose 180 H 110 H (74-99) mg/dL Calcium 6.6 L 6.9 L (8.4-10.2) mg/dL AST 16 (14-36) U/L ALT 24 (9-52) U/L Alkaline Phosphatase 66 (38-126) U/L Total Protein 4.0 L (6.3-8.2) g/dL Albumin 2.1 L (3.5-5.0) g/dL Calcium panel 02/28/19 03/01/19 Range/Units 11:17 03:05 Calcium 6.6 L 6.9 L (8.4-10.2) mg/dL Albumin 2.1 L (3.5-5.0) g/dL Pituitary panel 02/28/19 03/01/19 Range/Units 11:17 03:05 Sodium 139 141 (137-145) mmol/L Potassium 3.8 3.7 (3.5-5.1) mmol/L Chloride 115 H 116 H (98-107) mmol/L Carbon Dioxide 20 L 22 (22-30) mmol/L BUN 18 H 18 H (7-17) mg/dL Creatinine 0.88 1.00 (0.52-1.04) mg/dL Glucose 180 H 110 H (74-99) mg/dL Calcium 6.6 L 6.9 L (8.4-10.2) mg/dL Adrenal panel 02/28/19 03/01/19 Range/Units 11:17 03:05 Sodium 139 141 (137-145) mmol/L Potassium 3.8 3.7 (3.5-5.1) mmol/L Chloride 115 H 116 H (98-107) mmol/L Carbon Dioxide 20 L 22 (22-30) mmol/L BUN 18 H 18 H (7-17) mg/dL Creatinine 0.88 1.00 (0.52-1.04) mg/dL Glucose 180 H 110 H (74-99) mg/dL Calcium 6.6 L 6.9 L (8.4-10.2) mg/dL Total Bilirubin 0.3 (0.2-1.3) mg/dL AST 16 (14-36) U/L ALT 24 (9-52) U/L Alkaline Phosphatase 66 (38-126) U/L Total Protein 4.0 L (6.3-8.2) g/dL Albumin 2.1 L (3.5-5.0) g/dL Assessment and Plan (1) Lower GI bleed Narrative/Plan: 63-year-old female with history of previous gastric bypass presenting with lower GI bleed. Plan angiography or tagged red blood cell scan if bleeding resumes. Begin liquid diet. Monitor hemoglobin. Current Visit: Yes Status: Acute Code(s): K92.2 - GASTROINTESTINAL HEMORRHAGE, UNSPECIFIED SNOMED Code(s): 39757122
[2019-03-01 11:56] LABS: Glucose,Whole Blood 114 mg/dL (75-99)
[2019-03-01 16:51] LABS: Glucose,Whole Blood 89 mg/dL (75-99)
[2019-03-01 19:41] LABS: Basophils % (A) 1 %; Eosinophils # (A) 0.4 k/uL (0-0.7); Eosinophils % (A) 6 %; HCT 24.1 % (34.0-46.0); HGB 8.2 gm/dL (11.4-16.0); Lymphocytes # (A) 2.3 k/uL (1.0-4.8); Lymphocytes % (A) 35 %; MCH 31.3 pg (25.0-35.0); MCHC 33.9 g/dL (31.0-37.0); MCV 92.5 fL (80.0-100.0); Mean Platelet Volume 8.2; Monocytes # (A) 0.3 k/uL (0-1.0); Monocytes % (A) 5 %; Neutrophils # (A) 3.4 k/uL (1.3-7.7); Neutrophils % (A) 52 %; Platelet Count 133 k/uL (150-450); RBC 2.61 m/uL (3.80-5.40); RDW 15.4 % (11.5-15.5); WBC 6.5 k/uL (3.8-10.6)
[2019-03-01 20:15] LABS: Glucose,Whole Blood 120 mg/dL (75-99)
--- NOTE | 2019-03-01 20:50 | P.CONS ---
History of Present Illness - Reason for Consult Consult date: 03/01/19 Blood per rectum Requesting physician: Don Swann - Chief Complaint Blood per rectum - History of Present Illness 63-year-old female with medical history significant for Immanuel-en-Y gastric bypass in 2018 obesity, thyroidectomy, diabetes mellitus type 2, hyperlipidemia, de pression, osteoarthritis, vitamin D deficiency and reflux disease who presented to the hospital due to concerns over GI bleeding. The patient recently had similar complaints and was hospitalized for rectal bleeding with EGD negative for any source of bleeding and consistent with prior Immanuel-en-Y gastric bypass and a colonoscopy significant for diffuse diverticulosis with internal and external hemorrhoids on 02/26/2019. The patient was subsequently discharged home where she had resumption of the rectal bleeding with a total of 6 episodes of painless bright red blood per rectum. She has had a history of diverticulosis and diverticulitis in the past with her last scope done in approximately 2015 or 2016 when she was having symptoms related to the diverticulosis. Currently she is seen lying in bed reporting that she has had no further symptoms in the past 12 hours. She is denying any pain in the abdomen. Hemoglobin was 7.7 this morning after transfusion. Review of Systems REVIEW OF SYSTEMS: CONSTITUTIONAL: Denies any fevers, chills, weight change or fatigue. CARDIOVASCULAR: Denies any chest pain, palpitations high or low blood pressures RESPIRATORY: Denies any shortness of breath, hemoptysis or cough. GENITOURINARY: No dysuria or hematuria. MUSCULOSKELETAL: No weakness reported. SKIN: Denies any new rashes or lesions, jaundice or pallor. PSYCHIATRIC: Denies any depression or anxiety. NEUROLOGY: Denies headache, denies any new focal deficits. EARS/NOSE/THROAT: No recent hearing change, congestion, nasal discharge or sore throat. EYES: No pain in eyes, discharge or change in vision. GASTROINTESTINAL: As per HPI. Past Medical History Past Medical History: Diabetes Mellitus, GERD/Reflux, GI Bleed, Hyperlipidemia, Hypertension, Renal Disease, Thyroid Disorder Additional Past Medical History / Comment(s): Hiatal hernia, diverticulitis with lower GI bleed, gastric stricture/dysphagia with dilation, gastric benign polyp, NIDDM type II-no longer on meds since wt loss, R nephrectomy r/t congenital defect, benign thyroid nodules-thyroidectomy History of Any Multi-Drug Resistant Organisms: None Reported Past Surgical History: Adenoidectomy, Bariatric Surgery, Breast Surgery, Cholecystectomy, Tonsillectomy, Tubal Ligation Additional Past Surgical History / Comment(s): R nephrectomy/ureterectomy, thyroidectomy, immanuel en Y gastric bypass, EGD with dilation, colonoscopy, hysteroscopy D&C, R breast benign biopsy; 12/2017 Immanuel-en-Y with Dr. Murray Past Anesthesia/Blood Transfusion Reactions: No Reported Reaction Past Psychological History: Depression Additional Psychological History / Comment(s): Pt resides with her spouse, her brother and their adult daughter. She is independendt. Smoking Status: Former smoker Past Alcohol Use History: None Reported Additional Past Alcohol Use History / Comment(s): Pt was a light smoker from 1973 until 1984-3 cigarettes a day. Past Drug Use History: None Reported - Past Family History Father Family Medical History: Cancer Additional Family Medical History / Comment(s): LUNG Mother Family Medical History: Cancer Additional Family Medical History / Comment(s): BREAST Sister(s) Family Medical History: Cancer Additional Family Medical History / Comment(s): 2 SISTER HAD BREAST CANCER Brother(s) Family Medical History: Myocardial Infarction ([place]) Additional Family Medical History / Comment(s): Brother is living. He had a [place] at the age of 50yrs. Medications and Allergies Home Medications Medication Instructions Recorded Confirmed Type Levothyroxine Sodium [Synthroid] 200 mcg PO QAM 05/04/17 02/28/19 History Calcium Citrate 250 mg PO TID 01/30/18 02/28/19 History Multivitamins, Thera [Multivitamin 1 tab PO DAILY 01/30/18 02/28/19 History (formulary)] Cholecalciferol (Vitamin D3) 10,000 unit PO DAILY 03/20/18 02/28/19 History [Vitamin D3] Vitamin A Acetate [Vitamin A] 10,000 unit SL DAILY 03/20/18 02/28/19 History Zinc 50 mg PO BID 07/29/18 02/28/19 History buPROPion XL [Wellbutrin XL] 150 mg PO QAM 07/29/18 02/28/19 History amLODIPine [Norvasc] 10 mg PO DAILY 02/25/19 02/28/19 History Atorvastatin [Lipitor] 20 mg PO DAILY 02/28/19 02/28/19 History Cyanocobalamin [Vitamin B-12] 500 mcg PO DAILY 02/28/19 02/28/19 History Allergies Allergy/AdvReac Type Severity Reaction Status Date / Time prednisone Allergy Rash/Hives Verified 02/28/19 13:02 Physical Exam Vitals: Vital Signs Temp Pulse Resp BP Pulse Ox 03/01/19 19:00 70 19 133/68 97 03/01/19 18:00 78 18 132/72 98 03/01/19 17:00 77 12 118/71 97 03/01/19 16:00 98.2 F 70 19 99/58 96 03/01/19 15:00 80 15 121/64 98 03/01/19 14:00 65 20 103/59 97 03/01/19 13:00 70 14 113/64 96 03/01/19 12:00 98.1 F 64 16 132/68 96 03/01/19 11:00 71 14 126/64 98 03/01/19 10:00 65 14 110/62 94 L 03/01/19 09:00 63 17 118/64 97 03/01/19 08:00 98.0 F 68 17 109/56 94 L 03/01/19 07:00 68 12 116/64 96 03/01/19 06:00 71 20 99/53 95 03/01/19 05:00 72 18 108/55 94 L 03/01/19 04:00 98.5 F 79 20 101/54 96 03/01/19 03:00 69 16 87/54 93 L 03/01/19 02:00 69 16 104/46 94 L 03/01/19 01:00 71 15 85/48 93 L 03/01/19 00:17 98 F 80 15 108/54 94 L 03/01/19 00:00 98.2 F 74 17 107/55 94 L 02/28/19 23:00 81 18 101/48 95 02/28/19 22:51 98.4 F 75 16 101/49 95 02/28/19 22:21 98.2 F 72 18 94/51 97 02/28/19 22:11 98 F 76 16 102/51 97 02/28/19 22:00 75 17 102/59 97 02/28/19 21:53 98 F 75 18 95/63 97 02/28/19 21:00 79 18 102/59 98 02/28/19 20:30 98.7 F 80 18 102/59 97 Intake and Output 03/01/19 03/01/19 03/01/19 06:59 14:59 22:59 Intake Total 1205 775 250 Output Total 330 2200 1401 Balance 875 -1425 -1151 Intake: IV 895 775 250 Sodium Chloride 0.9% 1, 895 775 250 000 ml @ 50 mls/hr IV . Q20H [facility] Rx#:[id number] Blood Product 310 Rc As-1 Unit 310 [id number] Output: Urine 330 2200 1400 Stool 1 Other: Voiding Method Bedpan Bedpan Bedpan # Voids 0 0 Weight 117.48 kg 117.48 kg On physical examination, patient appears comfortable in no apparent distress. HEAD: Normocephalic, atraumatic. EYES: No scleral icterus. No conjunctival injection. MOUTH: No lesions, tongue midline. NECK: Trachea midline, no gross abnormalities. CHEST: Clear to auscultation with no wheezing or rhonchi appreciated. HEART: Regular rate and rhythm. ABDOMEN: Soft, obese. Bowel sounds are positive. No organomegaly. No guarding or rigidity. EXTREMITIES: No pedal edema. SKIN: No rashes, no jaundice. NEUROLOGIC: Alert and oriented x3. No focal deficits. Results CBC & Chem 7: 03/01/19 19:13 03/01/19 03:05 Labs: Abnormal Lab Results - Last 24 Hours (Table) 02/28/19 02/28/19 03/01/19 Range/Units 15:01 20:27 03:05 RBC (3.80-5.40) m/uL Hgb (11.4-16.0) gm/dL Hct (34.0-46.0) % Plt Count (150-450) k/uL Chloride 116 H (98-107) mmol/L BUN 18 H (7-17) mg/dL Glucose 110 H (74-99) mg/dL POC Glucose (mg/dL) 111 H (75-99) mg/dL Calcium 6.9 L (8.4-10.2) mg/dL Crossmatch See Detail 03/01/19 03/01/19 03/01/19 Range/Units 03:05 06:40 11:54 RBC 2.48 L (3.80-5.40) m/uL Hgb 7.7 L D (11.4-16.0) gm/dL Hct 22.5 L (34.0-46.0) % Plt Count 131 L (150-450) k/uL Chloride (98-107) mmol/L BUN (7-17) mg/dL Glucose (74-99) mg/dL POC Glucose (mg/dL) 132 H 114 H (75-99) mg/dL Calcium (8.4-10.2) mg/dL Crossmatch 03/01/19 Range/Units 19:13 RBC 2.61 L (3.80-5.40) m/uL Hgb 8.2 L (11.4-16.0) gm/dL Hct 24.1 L (34.0-46.0) % Plt Count 133 L (150-450) k/uL Chloride (98-107) mmol/L BUN (7-17) mg/dL Glucose (74-99) mg/dL POC Glucose (mg/dL) (75-99) mg/dL Calcium (8.4-10.2) mg/dL Crossmatch Assessment and Plan (1) Hematochezia Narrative/Plan: 63-year-old female with multiple medical comorbidities and recent admission for hematochezia at which time she had EGD which was significant for prior Immanuel-en-Y and colonoscopy significant for extensive diverticulosis with no active bleeding noted who presented back to the hospital with complaints of hematochezia. The patient reports her last episode of symptomatic diverticular disease was in 2016 or 2016 and that since that time she has been fine until recent admission rosie ier in the month. The patient presented with multiple episodes of painless bright red blood and maroon-colored blood per rectum. Currently she is had no further episodes in the past 12 hours. Likely source is diverticular in nature. Current Visit: Yes Status: Acute Code(s): K92.1 - MELENA SNOMED Code(s): 783271797 (2) Anemia associated with acute blood loss Current Visit: Yes Status: Acute Code(s): D62 - ACUTE POSTHEMORRHAGIC ANEMIA SNOMED Code(s): 755873889 (3) Lower GI bleed Current Visit: Yes Status: Acute Code(s): K92.2 - GASTROINTESTINAL HEMORRHAGE, UNSPECIFIED SNOMED Code(s): 35795360 Plan: Supportive care Continue to monitor hemoglobin and hematocrit and transfuse as needed Okay for liquid diet Appreciate recommendations from director security management and surgical services Continue to monitor stool output If further bleeding consideration is for take red blood cell scan or CT angiography for localization of bleed, patient also be considered for repeat flexible sigmoidoscopy if further bleeding occurs Thank you for allowing us to participate in the care of the patient we will continue to follow
--- NOTE | 2019-03-01 22:09 | PN ---
PROGRESS NOTE DATE OF SERVICE: 03/01/2019 This 63-year-old woman was admitted with GI bleed, diverticulitis previously but currently the hemoglobin is stable at 7.7. Two units transfusion has been given. Multiple consultants following the patient closely. Calcium 6.9. PAST MEDICAL HISTORY: Reviewed. REVIEW OF SYSTEM: Cardiovascular: No angina. Respiration: As mentioned earlier. GI: As mentioned earlier. GENITOURINARY: No dysuria. CENTRAL NERVOUS SYSTEM: No numbness. No weakness. CURRENT MEDICATIONS: Reviewed and include: 1. Tylenol p.r.n. 2. [place] 5 mg p.o. q.6h p.r.n. 3. Xanax 0.5 t.i.d. 4. Albuterol XL. 5. Dilaudid. 6. Synthroid. 7. Narcan. 8. Protonix. PHYSICAL EXAM: Patient is alert, oriented x3. Pulse is 70. Blood pressure 119/58, respiration 20, temperature 98.2, pulse ox 98% on room air. HEENT: Conjunctivae pale. Oral mucosa moist. NECK: No jugular venous distention. No carotid bruit. No lymph node enlargement. CARDIOVASCULAR SYSTEMS: S1, S2 muffled. RESPIRATIONS: Breath sounds diminished in the bases. Scattered rhonchi. ABDOMEN: Soft, obese, nontender. LEGS are no edema. No swelling. CENTRAL NERVOUS SYSTEM: Diffuse weakness. LABS: At this time, WBC is 8.1, hemoglobin 7.7, sodium 144, chloride is 116. ASSESSMENT: 1. Acute recurrent lower gastrointestinal bleeding with acute blood loss anemia status post transfusion, possibly diverticular bleed. 2. History of recent lower gastrointestinal bleeding from the diverticulosis. 3. History of recent colonoscopy showing extensive colonic diverticulosis. 4. History of diabetes type 2. 5. Gastroesophageal reflux disease. 6. Hypertension. 7. Hyperlipidemia. 8. History of gastric benign polyp. 9. History of adenoidectomy. 10.History of bariatric surgery in the form of for Immanuel-en-Y gastric bypass. 11.History of EGD with dilatation. 12.Depression. 13.Remote history of nicotine dependence. 14.Obesity with body mass index of 44.3. 15.FULL CODE. RECOMMENDATIONS AND DISCUSSION: In this 63-year-old woman who presented with multiple complex medical issues, we will monitor the patient closely, continue the current medications. Continue symptomatic treatment. We will closely monitor. Closely follow with GI and surgery. Otherwise monitor hemoglobin closely, if hemoglobin less than 7, transfusing unit of blood transfusion again. Avoid antiplatelet agents and NSAIDs. Prognosis guarded because of multiple complex medical issues discussed with the family who understands and agrees. Further recommendations to follow. MMCHRISL / IJN: [id number] /
[2019-03-02 04:54] LABS: Basophils # (A) 0.1 k/uL (0-0.2); Basophils % (A) 1 %; Eosinophils # (A) 0.4 k/uL (0-0.7); Eosinophils % (A) 6 %; HCT 24.7 % (34.0-46.0); HGB 8.2 gm/dL (11.4-16.0); Lymphocytes % (A) 30 %; MCH 30.6 pg (25.0-35.0); MCHC 33.3 g/dL (31.0-37.0); MCV 91.9 fL (80.0-100.0); Mean Platelet Volume 7.6; Monocytes # (A) 0.4 k/uL (0-1.0); Monocytes % (A) 6 %; Neutrophils # (A) 3.8 k/uL (1.3-7.7); Neutrophils % (A) 56 %; Platelet Count 139 k/uL (150-450); RBC 2.69 m/uL (3.80-5.40); RDW 15.2 % (11.5-15.5); WBC 6.8 k/uL (3.8-10.6)
[2019-03-02 05:02] LABS: Calcium 7.5 mg/dL (8.4-10.2); Potassium 3.7 mmol/L (3.5-5.1)
[2019-03-02] MEDS: LEVOTHYROXINE 100 MCG TAB PO SCH (05:40)
[2019-03-02 06:44] LABS: Glucose,Whole Blood 117 mg/dL (75-99)
[2019-03-02] MEDS: buPROPion XL 150 MG TAB.ER.24H PO SCH (09:36)
[2019-03-02] MEDS: PANTOPRAZOLE 40 MG/10 ML VIAL IV SCH ×2 (09:36→20:46)
[2019-03-02] MEDS: SODIUM CHLORIDE 0.9% 1,000 ML IV SCH (09:37)
--- NOTE | 2019-03-02 10:09 | P.PN ---
Subjective Progress Note Date: 03/02/19 Principal diagnosis: GI bleed Patient doing well today. Hemoglobin has been stable at 8.2. Small maroon stool yesterday afternoon. None today. Tolerating clears. Hungry. Objective - Vital Signs Vital signs: Vital Signs Temp 97.8 F 03/02/19 04:00 Pulse 64 03/02/19 09:00 Resp 17 03/02/19 09:00 BP 122/69 03/02/19 09:00 Pulse Ox 93 L 03/02/19 09:00 Intake & Output 03/01/19 03/02/19 03/02/19 18:59 06:59 18:59 Intake Total 1475 600 150 Output Total 3601 2004 200 Balance -2126 -1405 -50 Weight 117.48 kg 113 kg Intake: IV 975 600 150 Sodium Chloride 0.9% 1, 975 600 150 000 ml @ 50 mls/hr IV . Q20H [facility] Rx#:[id number] Intake, IV Titration 500 Amount Sodium Chloride 0.9% 1, 500 000 ml @ 50 mls/hr IV . Q20H [facility]KA Rx#:[id number] Output: Urine 3600 2004 200 Stool 1 Other: Voiding Method Bedpan Bedpan Bedpan # Voids 0 - Exam Abdomen: Soft, nondistended, nontender - Labs CBC & Chem 7: 03/02/19 04:25 03/02/19 04:22 Labs: Abnormal Lab Results - Last 24 Hours (Table) 03/01/19 03/01/19 03/01/19 Range/Units 11:54 19:13 20:13 RBC 2.61 L (3.80-5.40) m/uL Hgb 8.2 L (11.4-16.0) gm/dL Hct 24.1 L (34.0-46.0) % Plt Count 133 L (150-450) k/uL Chloride (98-107) mmol/L Glucose (74-99) mg/dL POC Glucose (mg/dL) 114 H 120 H (75-99) mg/dL Calcium (8.4-10.2) mg/dL 03/02/19 03/02/19 03/02/19 Range/Units 04:22 04:25 06:42 RBC 2.69 L (3.80-5.40) m/uL Hgb 8.2 L (11.4-16.0) gm/dL Hct 24.7 L (34.0-46.0) % Plt Count 139 L (150-450) k/uL Chloride 112 H (98-107) mmol/L Glucose 101 H (74-99) mg/dL POC Glucose (mg/dL) 117 H (75-99) mg/dL Calcium 7.5 L (8.4-10.2) mg/dL Assessment and Plan (1) Lower GI bleed Narrative/Plan: Advance diet to full liquids. Ambulate. Continue antiacids. Monitor for ble eding. Current Visit: Yes Status: Acute Code(s): K92.2 - GASTROINTESTINAL HEMORRHAGE, UNSPECIFIED SNOMED Code(s): 46643725
--- NOTE | 2019-03-02 10:49 | P.PN ---
Subjective Progress Note Date: 03/02/19 This is a 63-year-old white female patient of Dr. Harris, with past medical his tory Immanuel-en-Y gastric bypass surgery in 2018, significant weight loss since surgery, morbid obesity, acid reflux, thyroidectomy for history of thyroid lesions, diabetes mellitus type 2, hyperlipidemia, depression, osteoarthritis, vitamin D deficiency, who had a recent hospitalization for acute GI bleeding of a lower GI source. Patient underwent colonoscopy on 02/26/2019 and colonoscopy showed severe diffuse scattered diverticulosis, external and internal hemorrhoids without inflammation or bleeding. Patient was discharged home on 02/26/2019 following the procedure. On 02/28/2019 patient started having bright red dose per rectum, had a total of 2 at home, she felt lightheaded, hence patie nt went to [facility] for evaluation. Patient denies any hematemesis. No syncopal episodes, no shortness of breath or chest pain. Patient's last hemoglobin on 02/26/2019 was 9.4, today's hemoglobin is 7.1, with episodes of hypotension, patient was given a total of 1 L fluid bolus, and 2 units of packed red blood cells been ordered. She is on 2 L of oxygen, with a pulse ox of 100%, current blood pressure is 103/52, patient is afebrile, not tachycardic, sinus mechanism on the monitor with a rate of 78. No complaints of abdominal pain, abdomen is soft and nontender, patient is awake and alert, hemodynamically patient is stable, awaiting transfusion with 2 units of packed red blood cells. Surgical evaluation is pending On today's evaluation of 03/01/2019, the patient is still in the intensive care unit being monitored for GI bleed. Noted the patient came into the hospital b ecause of recurrent GI bleed and the hemoglobin dropped from 9.4 down to 7.1. Subsequently, in the evening, hemoglobin came down to 6 and the patient was given a total of 2 units of packed RBC and hemoglobin today is at 7.7. Note that we have not witnessed any further episodes of GI bleeding in her GI bleed is pretty much episodic at this point and it's painless. She is calm and comfortable. Her previous endoscopies that were done by Dr. Dixon at shown no evidence of any acute source of bleeding. For now we have a GI consultation and another surgical consultation on board. Note that her last endoscopies was done on 02/26/2019 and the patient was found to have external hemorrhoids grade 3 without inflammation, internal hemorrhoids grade 2 without inflammation, scattered diverticulosis. It was suspected that the bleeding back then was diverticular in nature. She is currently receiving IV fluids at the rate of 125 mL an hour of normal saline. She denies having any other specific complaints. No dizziness. No chest pain. No shortness of breath. On 03/02/2019 the patient is small bowel movement this morning that was nonbloody with a smear of maroon stool. She remains hemodynamically stable. Her hemoglobin has remained stable at 8.2. No nausea vomiting or abdominal p ain. No abdominal distention. No other significant events overnight. With IV Fluids down to 50 ML an Hour. She Remains on a Clear Liquid Diet and This Will Be Advanced to Full Liquid Diet Today. No Plans for Endoscopy. Objective - Vital Signs Vital signs: Vital Signs Temp 97.8 F 03/02/19 04:00 Pulse 64 03/02/19 10:00 Resp 12 03/02/19 10:00 BP 109/61 03/02/19 10:00 Pulse Ox 97 03/02/19 10:00 Intake & Output 03/01/19 03/02/19 03/02/19 18:59 06:59 18:59 Intake Total 1475 600 200 Output Total 3601 2004 800 Balance -2126 -1405 -600 Weight 117.48 kg 113 kg Intake: IV 975 600 200 Sodium Chloride 0.9% 1, 975 600 200 000 ml @ 50 mls/hr IV . Q20H [facility]KA Rx#:[id number] Intake, IV Titration 500 Amount Sodium Chloride 0.9% 1, 500 000 ml @ 50 mls/hr IV . Q20H MIKA Rx#:[id number] Output: Urine 3600 2004 800 Stool 1 Other: Voiding Method Bedpan Bedpan Bedpan # Voids 0 - Exam GENERAL EXAM: Alert, pleasant, 63-year-old white female, RA of oxygen, with pulse ox in the 98% comfortable in no apparent distress. HEAD: Normocephalic/atraumatic. EYES: Normal reaction of pupils, equal size. Conjunctiva pink, sclera white. NOSE: Clear with pink turbinates. THROAT: No erythema or exudates. NECK: No masses, no JVD, no thyroid enlargement, no adenopathy. CHEST: No chest wall deformity. Symmetrical expansion. LUNGS: Equal air entry with no crackles, wheeze, rhonchi or dullness. CVS: Regular rate and rhythm, normal S1 and S2, no gallops, no murmurs, no rubs ABDOMEN: Soft, nontender. No hepatosplenomegaly, normal bowel sounds, no guarding or rigidity. EXTREMITIES: No clubbing, no edema, no cyanosis, 2+ pulses and upper and lower extremities. MUSCULOSKELETAL: Muscle strength and tone normal. SPINE: No scoliosis or deformity SKIN: No rashes CENTRAL NERVOUS SYSTEM: Alert and oriented -3. No focal deficits, tone is normal in all 4 extremities. PSYCHIATRIC: Alert and oriented -3. Appropriate affect. Intact judgment and insight. - Labs CBC & Chem 7: 03/02/19 04:25 03/02/19 04:22 Labs: Abnormal Lab Results - Last 24 Hours (Table) 03/01/19 03/01/19 03/01/19 Range/Units 11:54 19:13 20:13 RBC 2.61 L (3.80-5.40) m/uL Hgb 8.2 L (11.4-16.0) gm/dL Hct 24.1 L (34.0-46.0) % Plt Count 133 L (150-450) k/uL Chloride (98-107) mmol/L Glucose (74-99) mg/dL POC Glucose (mg/dL) 114 H 120 H (75-99) mg/dL Calcium (8.4-10.2) mg/dL 03/02/19 03/02/19 03/02/19 Range/Units 04:22 04:25 06:42 RBC 2.69 L (3.80-5.40) m/uL Hgb 8.2 L (11.4-16.0) gm/dL Hct 24.7 L (34.0-46.0) % Plt Count 139 L (150-450) k/uL Chloride 112 H (98-107) mmol/L Glucose 101 H (74-99) mg/dL POC Glucose (mg/dL) 117 H (75-99) mg/dL Calcium 7.5 L (8.4-10.2) mg/dL Assessment and Plan Plan: #1. Acute GI blood loss anemia, would likely source of lower GI tract, likely diverticular bleed and the she'll receive a total of 2 units of packed RBC. Hemodynamically stable for now. #2. Recent hospitalization for lower GI bleeding, patient underwent endoscopy on 02/26/2019 which showed severe diffuse diverticulosis, and no active bleeding, external and internal hemorrhoids #3. Morbid obesity, status post Immanuel-en-Y gastric bypass surgery in 2018 with s ignificant weight loss #4. Diabetes mellitus type 2 #5. GERD/reflux #6. Hyperlipidemia #7. Hypertension #8. Thyroid nodules, status post resection #9. History of right nephrectomy #10. Former smoker Plan The patient is stable. No bleeding. The diet is being advanced slowly. Curre nt hemoglobin is at 8.2 which is comparable to yesterday. No other issues for now. We'll monitor her here in the hospital for another 24 hours. GI is on the case. Surgeries on the case. No plans for any intervention for today. Cut down the IV fluids to KVO. Advance the diet.
[2019-03-02 11:46] LABS: Glucose,Whole Blood 110 mg/dL (75-99)
[2019-03-02 15:11] LABS: Basophils % (A) 1 %; Eosinophils # (A) 0.3 k/uL (0-0.7); Eosinophils % (A) 4 %; HCT 28.3 % (34.0-46.0); HGB 9.2 gm/dL (11.4-16.0); Lymphocytes # (A) 1.7 k/uL (1.0-4.8); Lymphocytes % (A) 23 %; MCH 30.3 pg (25.0-35.0); MCHC 32.6 g/dL (31.0-37.0); MCV 93.1 fL (80.0-100.0); Mean Platelet Volume 7.6; Monocytes # (A) 0.4 k/uL (0-1.0); Monocytes % (A) 6 %; Neutrophils % (A) 66 %; Platelet Count 174 k/uL (150-450); RBC 3.04 m/uL (3.80-5.40); RDW 15.4 % (11.5-15.5); WBC 7.6 k/uL (3.8-10.6)
--- NOTE | 2019-03-02 19:45 | P.PN ---
Subjective Progress Note Date: 03/02/19 Principal diagnosis: Lower GI bleed, diverticulosis, anemia acute blood loss Patient is seen sitting bedside. No abdominal pain reported. Reports passing some dark stool but no further bright red blood or maroon-colored stool. Tolerating liquid diet. Objective - Vital Signs Vital signs: Vital Signs Temp 97.8 F 03/02/19 04:00 Pulse 64 03/02/19 09:00 Resp 17 03/02/19 09:00 BP 122/69 03/02/19 09:00 Pulse Ox 93 L 03/02/19 09:00 Intake & Output 03/01/19 03/02/19 03/02/19 18:59 06:59 18:59 Intake Total 1475 600 150 Output Total 3601 2004 200 Balance -2126 -1405 -50 Weight 117.48 kg 113 kg Intake: IV 975 600 150 Sodium Chloride 0.9% 1, 975 600 150 000 ml @ 50 mls/hr IV . Q20H [facility]KA Rx#:[id number] Intake, IV Titration 500 Amount Sodium Chloride 0.9% 1, 500 000 ml @ 50 mls/hr IV . Q20H [facility]KA Rx#:[id number] Output: Urine 3600 2004 200 Stool 1 Other: Voiding Method Bedpan Bedpan # Voids 0 - Exam On physical examination, patient appears comfortable in no apparent distress. HEAD: Normocephalic, atraumatic. EYES: No scleral icterus. No conjunctival injection. MOUTH: No lesions, tongue midline. NECK: Trachea midline, no gross abnormalities. CHEST: No respiratory distress, no wheezing. ABDOMEN: Soft, obese. Bowel sounds are positive. No organomegaly. No guarding or rigidity. EXTREMITIES: No pedal edema. SKIN: No rashes, no jaundice. NEUROLOGIC: Alert and oriented x3. No focal deficits. - Labs CBC & Chem 7: 03/02/19 14:53 03/02/19 04:22 Labs: Abnormal Lab Results - Last 24 Hours (Table) 03/01/19 03/01/19 03/01/19 Range/Units 11:54 19:13 20:13 RBC 2.61 L (3.80-5.40) m/uL Hgb 8.2 L (11.4-16.0) gm/dL Hct 24.1 L (34.0-46.0) % Plt Count 133 L (150-450) k/uL Chloride (98-107) mmol/L Glucose (74-99) mg/dL POC Glucose (mg/dL) 114 H 120 H (75-99) mg/dL Calcium (8.4-10.2) mg/dL 03/02/19 03/02/19 03/02/19 Range/Units 04:22 04:25 06:42 RBC 2.69 L (3.80-5.40) m/uL Hgb 8.2 L (11.4-16.0) gm/dL Hct 24.7 L (34.0-46.0) % Plt Count 139 L (150-450) k/uL Chloride 112 H (98-107) mmol/L Glucose 101 H (74-99) mg/dL POC Glucose (mg/dL) 117 H (75-99) mg/dL Calcium 7.5 L (8.4-10.2) mg/dL Assessment and Plan (1) Hematochezia Narrative/Plan: 63-year-old female with multiple medical comorbidities and recent admission for hematochezia at which time she had EGD which was significant for prior Immanuel-en-Y and colonoscopy significant for extensive diverticulosis with no active bleeding noted who presented back to the hospital with complaints of hematochezia. The patient reports her last episode of symptomatic diverticular disease was in 2015 or 2016 and that since that time she has been fine until recent admission earlier in the month. The patient presented with multiple episodes of painless bright red blood and maroon-colored blood per rectum. Currently she is had no further episodes of bright red blood per rectum and has been passing dark stool. Likely source is diverticular in nature. Current Visit: Yes Status: Acute Code(s): K92.1 - MELENA SNOMED Code(s): 267006881 (2) Anemia associated with acute blood loss Current Visit: Yes Status: Acute Code(s): D62 - ACUTE POSTHEMORRHAGIC ANEMIA SNOMED Code(s): 450730063 (3) Lower GI bleed Current Visit: Yes Status: Acute Code(s): K92.2 - GASTROINTESTINAL HEMORRHAGE, UNSPECIFIED SNOMED Code(s): 99454263 Plan: Supportive care Continue to monitor hemoglobin and hematocrit and transfuse as needed Diet advance to full liquids Appreciate recommendations from care professional and surgical services Continue to monitor stool output If further bleeding consideration is for take red blood cell scan or CT angiography for localization of bleed, patient also be considered for repeat flexible sigmoidoscopy if further bleeding occurs Thank you for allowing us to participate in the care of the patient we will continue to follow
[2019-03-02 20:35] LABS: Glucose,Whole Blood 110 mg/dL (75-99)
--- NOTE | 2019-03-02 22:44 | PN ---
PROGRESS NOTE DATE OF SERVICE: 03/02/2019 This 63-year-old woman admitted with lower gastrointestinal bleeding, received 2 units transfusion at this time. Hemoglobin 9.2. No further bleeding is noted. Patient closely monitored. No chest pain. No palpitations. No fever. EXAM: Alert and oriented x3. Pulse 89, blood pressure 135/82, respiration 17, temperature 98.4, pulse ox 98% on room air. HEENT: Conjunctivae normal. Oral mucosa moist. NECK: No jugular venous distention. No lymph node enlargement. CARDIOVASCULAR: S1, S2. RESPIRATORY: Diminished breath sounds at the bases. No rhonchi, no crackles. ABDOMEN: Soft, obese, nontender. LEGS: No swelling. NERVOUS SYSTEM: No focal deficits. LABS: WBC 7.2, hemoglobin 9.2. ASSESSMENT: 1. Acute recurrent lower gastrointestinal bleeding with acute blood loss anemia status post transfusions 2 units, possibly diverticular bleed. 2. History of recent lower gastrointestinal bleeding from the diverticulosis. 3. History of recent colonoscopy showing extensive colonic diverticulosis with no active bleeding. 4. History of diabetes type 2. 5. Gastroesophageal reflux disease. 6. Hypertension. 7. Hyperlipidemia. 8. History of gastric benign polyp. 9. History of adenoidectomy. 10.History of bariatric surgery in the form of Immanuel-en-Y gastric bypass surgery. 11.History of EGD and dilatation. 12.History of depression. 13.Remote history of nicotine dependence. 14.Obesity body mass index of 44.6. 15.FULL CODE. RECOMMENDATIONS AND DISCUSSION: Recommend to continue current, continue to monitor, continue symptomatic treatment, avoid antiplatelet agents. Otherwise, repeat hemoglobin. Closely follow with Gastroenterology and Surgery. Further recommendations to follow. MMODL / IJN: [id number] /
[2019-03-03] MEDS: LEVOTHYROXINE 100 MCG TAB PO SCH (05:56)
[2019-03-03 07:22] LABS: Glucose,Whole Blood 128 mg/dL (75-99)
[2019-03-03 07:59] LABS: Basophils # (A) 0.1 k/uL (0-0.2); Basophils % (A) 1 %; Eosinophils # (A) 0.3 k/uL (0-0.7); Eosinophils % (A) 3 %; HCT 29.6 % (34.0-46.0); HGB 9.5 gm/dL (11.4-16.0); Lymphocytes # (A) 2.1 k/uL (1.0-4.8); Lymphocytes % (A) 24 %; MCH 30.1 pg (25.0-35.0); MCV 94.1 fL (80.0-100.0); Mean Platelet Volume 7.5; Monocytes # (A) 0.4 k/uL (0-1.0); Monocytes % (A) 5 %; Neutrophils # (A) 5.8 k/uL (1.3-7.7); Neutrophils % (A) 66 %; Platelet Count 205 k/uL (150-450); RBC 3.14 m/uL (3.80-5.40); RDW 15.2 % (11.5-15.5); WBC 8.8 k/uL (3.8-10.6)
[2019-03-03 08:15] LABS: Calcium 8.1 mg/dL (8.4-10.2); Potassium 3.6 mmol/L (3.5-5.1)
[2019-03-03] MEDS: buPROPion XL 150 MG TAB.ER.24H PO SCH (08:57)
[2019-03-03] MEDS: PANTOPRAZOLE 40 MG/10 ML VIAL IV SCH ×2 (08:57→23:30)
--- NOTE | 2019-03-03 13:06 | P.PN ---
Subjective Progress Note Date: 03/03/19 Principal diagnosis: Acute GI bleeding This is a 63-year-old white female patient of Dr. Harris, with past medical history Immanuel-en-Y gastric bypass surgery in 2018, significant weight loss since surgery, morbid obesity, acid reflux, thyroidectomy for history of thyroid lesions, diabetes mellitus type 2, hyperlipidemia, depression, osteoarthritis, vitamin D deficiency, who had a recent hospitalization for acute GI bleeding of a lower GI source. Patient underwent colonoscopy on 02/26/2019 and colonoscopy showed severe diffuse scattered diverticulosis, external and internal h emorrhoids without inflammation or bleeding. Patient was discharged home on 02/26/2019 following the procedure. On 02/28/2019 patient started having bright red dose per rectum, had a total of 2 at home, she felt lightheaded, hence patient went to [facility] for evaluation. Patient denies any hematemesis. No syncopal episodes, no shortness of breath or chest pain. Patient's last hemoglobin on 02/26/2019 was 9.4, today's hemoglobin is 7.1, with episodes of hypotension, patient was given a total of 1 L fluid bolus, and 2 units of packed red blood cells been ordered. She is on 2 L of oxygen, with a pulse ox of 100%, current blood pressure is 103/52, patient is afebrile, not tachycardic, sinus mechanism on the monitor with a rate of 78. No complaints of abdominal pain, abdomen is soft and nontender, patient is awake and alert, hemodynamically patient is stable, awaiting transfusion with 2 units of packed red blood cells. Surgical evaluation is pending On today's evaluation of 03/01/2019, the patient is still in the intensive care unit being monitored for GI bleed. Noted the patient came into the hospital because of recurrent GI bleed and the hemoglobin dropped from 9.4 down to 7.1. Subsequently, in the evening, hemoglobin came down to 6 and the patient was given a total of 2 units of packed RBC and hemoglobin today is at 7.7. Note that we have not witnessed any further episodes of GI bleeding in her GI bleed is pretty much episodic at this point and it's painless. She is calm and comfortable. Her previous endoscopies that were done by Dr. Dixon at shown no evidence of any acute source of bleeding. For now we have a GI consultation and another surgical consultation on board. Note that her last endoscopies was done on 02/26/2019 and the patient was found to have external hemorrhoids grade 3 without inflammation, internal hemorrhoids grade 2 without inflammation, scattered diverticulosis. It was suspected that the bleeding back then was diverticular in nature. She is currently receiving IV fluids at the rate of 125 mL an hour of normal saline. She denies having any other specific complaints. No dizziness. No chest pain. No shortness of breath. On 03/02/2019 the patient is small bowel movement this morning that was nonbloody with a smear of maroon stool. She remains hemodynamically stable. Her hemoglobin has remained stable at 8.2. No nausea vomiting or abdominal pain. No abdominal distention. No other significant events overnight. With IV Fluids down to 50 ML an Hour. She Remains on a Clear Liquid Diet and This Will Be Advanced to Full Liquid Diet Today. No Plans for Endoscopy. Reevaluated today on 03/03/2019, patient is doing well, awaiting to have a CT of the abdomen and pelvis, she has no active bleeding, doing well from the pulmonary perspective, she has no cough no wheezing no shortness of breath. Hemoglobin today is 9.5. Received a total of 2 units of packed RBCs since admission. Patient had EGD and colonoscopy, both were nondiagnostic. Objective - Vital Signs Vital signs: Vital Signs Temp 97.9 F 03/03/19 04:50 Pulse 64 03/03/19 04:50 Resp 12 03/03/19 04:50 BP 132/75 03/03/19 04:50 Pulse Ox 97 03/03/19 04:50 Intake & Output 03/02/19 03/03/19 03/03/19 18:59 06:59 18:59 Intake Total 250 Output Total 800 Balance -550 Intake: IV 250 Sodium Chloride 0.9% 1, 250 000 ml @ 50 mls/hr IV . Q20H [facility]KA Rx#:[id number] Output: Urine 800 Other: Voiding Method Bedpan Toilet Toilet # Voids 1 3 - Exam GENERAL EXAM: Revealed 63-year-old female in no distress. HEAD: Normocephalic/atraumatic. HEENT: PERRLA, EOMI, no icterus. No thyromegaly, throat is clear. CHEST: No chest wall deformity. Symmetrical expansion. LUNGS: Symmetrical chest expansion, good breath sound bilaterally no crackles or rhonchi or wheezes. CVS: Regular rate and rhythm, normal S1 and S2, no gallops, no murmurs, no rubs ABDOMEN: Soft, nontender. No hepatosplenomegaly, normal bowel sounds, no guarding or rigidity. EXTREMITIES: No clubbing, no edema, no cyanosis, 2+ pulses and upper and lower extremities. MUSCULOSKELETAL: Muscle strength and tone normal. SPINE: No scoliosis or deformity SKIN: No rashes CENTRAL NERVOUS SYSTEM: Alert and oriented -3. No focal deficits, tone is normal in all 4 extremities. PSYCHIATRIC: Alert and oriented -3. Appropriate affect. Intact judgment and insight. - Labs CBC & Chem 7: 03/03/19 07:40 03/03/19 07:40 Labs: Abnormal Lab Results - Last 24 Hours (Table) 03/02/19 03/02/19 03/03/19 Range/Units 14:53 20:32 07:13 RBC 3.04 L (3.80-5.40) m/uL Hgb 9.2 L (11.4-16.0) gm/dL Hct 28.3 L (34.0-46.0) % Glucose (74-99) mg/dL POC Glucose (mg/dL) 110 H 128 H (75-99) mg/dL Calcium (8.4-10.2) mg/dL 03/03/19 03/03/19 Range/Units 07:40 07:40 RBC 3.14 L (3.80-5.40) m/uL Hgb 9.5 L (11.4-16.0) gm/dL Hct 29.6 L (34.0-46.0) % Glucose 192 H (74-99) mg/dL POC Glucose (mg/dL) (75-99) mg/dL Calcium 8.1 L (8.4-10.2) mg/dL Assessment and Plan Assessment: #1. Acute GI blood loss anemia, would likely source of lower GI tract, likely diverticular bleed , no active bleeding during colonoscopy. #2. Recent hospitalization for lower GI bleeding, patient underwent endoscopy on 02/26/2019 which showed severe diffuse diverticulosis, and no active bleeding, external and internal hemorrhoids #3. Morbid obesity, status post Immanuel-en-Y gastric bypass surgery in 2018 with significant weight loss #4. Diabetes mellitus type 2 #5. GERD/reflux #6. Hyperlipidemia #7. Hypertension #8. Thyroid nodules, status post resection #9. History of right nephrectomy #10. Former smoker Recommendation: Continue present supportive care measures, we will sign off for now, we'll see the patient on when necessary basis, patient is being followed by many other consultants including gastroenterology and general surgery. Time with Patient: Less than 30
--- NOTE | 2019-03-03 13:13 | P.PN ---
<Nora Jay A - Last Filed: 03/03/19 13:07> Subjective Progress Note Date: 03/03/19 CHIEF COMPLAINT: GI Bleed HISTORY OF PRESENT ILLNESS: Patient examined at the bedside this morning. She reports mild nausea. Tolerating full liquids. She reports epigastric/upper abdominal discomfort today. She reports maroon colored stool today. Hemoglobin stable. PHYSICAL EXAM: VITAL SIGNS: Currently stable. GENERAL: Well-developed in no acute distress. HEENT: No sclera icterus. Extraocular movements grossly intact. Moist buccal mucosa. Head is atraumatic, normocephalic. Hears conversational speech. No nasal drainage. NECK: Supple without lymphadenopathy. CHEST: Non-labored respirations and equal bilateral excursions. CARDIOVASCULAR: Regular rate with regular rhythm. Palpable 2+ radial pulses. ABDOMEN: Soft. Nondistended. Nontender. Mild epigastric tenderness. MUSCULOSKELETAL: No clubbing, cyanosis or edema. NEUROLOGIC: No focal or lateralizing signs. Cranial nerves II through XII grossly intact. PSYCH: Appropriate affect. Alert and oriented to person, place and time. SKIN: Well perfused. Good skin turgor. ASSESSMENT: 1. GI Bleed PLAN: Patients hemoglobin has remained stable. However, she reports maroon colored stools and continued epigastric/upper abdominal discomfort. Dr. Murray recommends CT abdomen pelvis with acute GI bleeding protocol to further assess possible bleeding. Can not exclude bleeding from patients excluded stomach from previous bariatric surgery. Nurse practitioner note has been reviewed by physician. Signing provider agrees with the documented findings, assessment, and plan of care. Objective - Vital Signs Vital signs: Vital Signs Temp 97.9 F 03/03/19 04:50 Pulse 64 03/03/19 04:50 Resp 12 03/03/19 04:50 BP 132/75 03/03/19 04:50 Pulse Ox 97 03/03/19 04:50 Intake & Output 03/02/19 03/03/19 03/03/19 18:59 06:59 18:59 Intake Total 250 Output Total 800 Balance -550 Intake: IV 250 Sodium Chloride 0.9% 1, 250 000 ml @ 50 mls/hr IV . Q20H MIKA Rx#:[id number] Output: Urine 800 Other: Voiding Method Bedpan Toilet Toilet # Voids 1 3 - Labs CBC & Chem 7: 03/03/19 07:40 12/02/19 07:40 Labs: Abnormal Lab Results - Last 24 Hours (Table) 03/02/19 03/02/19 03/03/19 Range/Units 14:53 20:32 07:13 RBC 3.04 L (3.80-5.40) m/uL Hgb 9.2 L (11.4-16.0) gm/dL Hct 28.3 L (34.0-46.0) % Glucose (74-99) mg/dL POC Glucose (mg/dL) 110 H 128 H (75-99) mg/dL Calcium (8.4-10.2) mg/dL 03/03/19 03/03/19 Range/Units 07:40 07:40 RBC 3.14 L (3.80-5.40) m/uL Hgb 9.5 L (11.4-16.0) gm/dL Hct 29.6 L (34.0-46.0) % Glucose 192 H (74-99) mg/dL POC Glucose (mg/dL) (75-99) mg/dL Calcium 8.1 L (8.4-10.2) mg/dL <Qian Murray N - Last Filed: 03/06/19 13:44> Subjective As above. Patient is status post both upper and lower endoscopy for last week without any acute findings. She does have moderate to severe diverticulosis. As a result of having rebleed, CT protocol GI bleed advised also to assess the excluded gastric remnant. Objective - Vital Signs Vital signs: Vital Signs Temp 98.2 F 03/06/19 12:24 Pulse 65 03/06/19 12:24 Resp 18 03/06/19 12:24 BP 125/72 03/06/19 12:24 Pulse Ox 98 03/06/19 12:24 Intake & Output 03/05/19 03/06/19 03/06/19 18:59 06:59 18:59 Intake Total 1080 900 Output Total 0 Balance 1080 900 Intake: Oral 1080 900 Output: Stool 0 Other: Voiding Method Toilet Toilet Toilet # Voids 1 2 2 - Labs CBC & Chem 7: 03/06/19 09:03 03/06/19 09:03 Labs: Abnormal Lab Results - Last 24 Hours (Table) 03/05/19 03/06/19 03/06/19 Range/Units 17:44 00:14 09:03 RBC 3.16 L 2.69 L 2.75 L (3.80-5.40) m/uL Hgb 9.7 L 8.3 L 8.5 L (11.4-16.0) gm/dL Hct 29.4 L 25.2 L 25.9 L (34.0-46.0) % Chloride (98-107) mmol/L Creatinine (0.52-1.04) mg/dL Glucose (74-99) mg/dL Calcium (8.4-10.2) mg/dL 03/06/19 Range/Units 09:03 RBC (3.80-5.40) m/uL Hgb (11.4-16.0) gm/dL Hct (34.0-46.0) % Chloride 110 H (98-107) mmol/L Creatinine 1.19 H (0.52-1.04) mg/dL Glucose 142 H (74-99) mg/dL Calcium 7.7 L (8.4-10.2) mg/dL
--- NOTE | 2019-03-03 13:32 | CT ---
EXAMINATION TYPE: CT abdomen pelvis wo/w con DATE OF EXAM: 03/03/2019 HISTORY: GI BLEED CT DLP: 3960.5mGycm Automated Exposure Control for Dose Reduction was Utilized. CONTRAST: CT scan of the abdomen and pelvis is performed without and with IV Contrast, patient injected with 80 mL of Isovue 370. COMPARISON: None. FINDINGS: LUNG BASES: No significant abnormality is appreciated. LIVER/GB: Liver is enlarged. No significant abnormality is appreciated. Gallbladder is surgically abs ent. PANCREAS: No significant abnormality is seen. SPLEEN: No significant abnormality is seen. ADRENALS: No significant abnormality is seen. KIDNEYS: Nearly fluid attenuated probable left renal cyst of the lower pole measures 1.6 cm. Suspecte d left renal sinus cysts. Right kidney surgically absent. BOWEL: Partial gastrectomy change is seen of the stomach and small bowel in the left paracentral mid abdomen. Numerous sigmoid diverticula without pericolonic fat stranding. Hepatic flexure is decompre ssed and tortuous. No dilated large or small bowel. LYMPH NODES: No greater than 1cm abdominal or pelvic lymph nodes are appreciated. OSSEOUS STRUCTURES: Moderate multilevel degenerative disc disease of the spine. OTHER: Focal fat filled periumbilical and infraumbilical hernias. Right rectus abdominis muscular atr ophy IMPRESSION: No CT findings to identify the source of the patient's GI bleed. Hepatic flexure is decompressed but otherwise unremarkable. Scattered diverticula are seen without pericolonic fat stranding. Postsurgica l change of prior partial gastrectomy.
[2019-03-03] MEDS ORDERED: MAGNESIUM CITRATE 296 ML BOTTLE PO ONE (19:00)
--- NOTE | 2019-03-03 21:53 | PN ---
PROGRESS NOTE DATE OF DICTATION: 03/03/2019 Patient is a 63-year-old pleasant white female admitted to the hospital with acute GI bleed. She was admitted to the hospital a week ago with acute GI bleed, underwent EGD and colonoscopy by Dr. Murray and was diagnosed with internal hemorrhoids as well as diffuse diverticulosis which was thought to be the source of bleeding. There is no active bleeding at the time of examination. She also has prior history of gastric Immanuel- en-Y bypass surgery. The patient was discharged home on February 26. Two days later she was re-admitted to the hospital with several episodes of bright red blood per rectum followed by maroon-colored stools. She had a hemoglobin of 6.5 requiring 2 units of blood transfusion. Since being in the hospital she has continued to have intermittent maroon-colored stools. The last one was this morning. She had CT of the abdomen and pelvis done which was unremarkable. The patient denies any abdominal pain, reports no nausea, vomiting. Her hemoglobin this morning was 9.5 g/dL. PHYSICAL EXAMINATION: She appears comfortable. No apparent distress. Vital signs are stable. Blood pressure is 128/71, pulse rate 66, temperature 97.7. HEENT examination unremarkable. Conjunctivae pink. Sclerae anicteric. Oral cavity no lesions. NECK: No JVD or lymph node enlargement. CHEST: Clear to auscultation. HEART: Regular rate and rhythm. ABDOMEN: Soft. Bowel sounds are positive. No organomegaly. EXTREMITIES: No pedal edema. SKIN: No rashes. NEUROLOGIC: Alert and oriented x3. No focal deficits. LAB DATA: Labs at the time of admission to the hospital showed hemoglobin 6.0. Today it is 9.5. Basic metabolic panel is within normal limits. BUN and creatinine are within normal limits. IMPRESSION: Obscure gastrointestinal bleed. The patient had an EGD and colonoscopy during her initial hospitalization on February 26 for acute GI bleed that showed diffuse diverticulosis and evidence of immanuel-en-Y gastric bypass surgery, but no active bleeding. It was thought her bleeding was from diverticulosis and she was discharged home; 2 days later re-admitted to the hospital with rectal bleeding and hemoglobin of 6, requiring 2 units of blood transfusion. She still continues to have ongoing intermittent maroon-colored stool. Today hemoglobin is 9.3 g/dL and remains stable. At this time possibility of bleeding from the gastric remnant or a small bowel also needs to be considered. RECOMMENDATIONS: I had a lengthy discussion with the patient regarding further workup. If she continues to have ongoing bleeding, I recommended that we proceed with a small bowel capsule endoscopy to investigate this further, and she is agreeable to it. This will be performed tomorrow. Thank you for this consultation. FOSTER / MELITON: [id number] /
[2019-03-04] MEDS: LEVOTHYROXINE 100 MCG TAB PO SCH (06:11)
[2019-03-04] MEDS ORDERED: SIMETHICONE 40 MG/0.6 ML DROPS 2,000 MG/30 ML BOTTLE PO ONE (07:00)
--- NOTE | 2019-03-04 07:36 | PN ---
PROGRESS NOTE DATE OF SERVICE: 03/03/2019 This is a 63-year-old woman who was admitted with acute recurrent lower GI bleeding with acute blood loss anemia, status post transfusion, is being closely monitored at this time. The patient recently had endoscopies. The patient still has some tarry melenic-type of stools also. Abdominal and pelvis CAT scan did not show any acute abnormality. Multiple consultants are following the patient closely with Gastroenterology and as well as Surgery and Pulmonology. PAST MEDICAL HISTORY: Reviewed. REVIEW OF SYSTEMS: CARDIOVASCULAR: No angina. RESPIRATION: mentioned earlier. GI: As mentioned earlier. : No dysuria. NERVOUS SYSTEM: As mentioned earlier. The patient did need a transfusion at this time. CURRENT MEDICATIONS: Tylenol p.r.n., [place] 5 mg q.6 p.r.n., Xanax, Wellbutrin, Dilaudid p.r.n., Synthroid, Narcan, Zofran, Protonix. PHYSICAL EXAM: Patient is alert, oriented x3. Pulse is blood pressure 130/70, respiration 20, temperature 97.9, pulse ox 98% on room air. HEENT: Conjunctivae are pale. NECK: No jugular venous distention. CARDIOVASCULAR SYSTEM: S1, S2 muffled. RESPIRATORY SYSTEM: Breath sounds diminished at the bases, a few scattered rhonchi, no crackles. ABDOMEN: Soft, nontender. No mass palpable. LEGS: No edema, no swelling. NERVOUS SYSTEM: No focal deficits. LABS: WBC 8.8, hemoglobin is 9.5. ASSESSMENT: 1. Acute recurrent lower gastrointestinal bleeding with acute blood loss anemia, status post transfusion history 2 units possibly diverticular bleed. 2. Continued melenic stools. 3. History of recent lower gastrointestinal bleeding from diverticulosis. 4. History of recent colonoscopy showed extensive colonic diverticulosis with no active bleeding at the time of endoscopy. 5. History of diabetes type 2. 6. Gastroesophageal reflux disease. 7. Hypertension. 8. Hyperlipidemia. 9. History of gastric benign polyp. 10.History of adenoidectomy. 11.History of bariatric surgery, Immanuel-en-Y gastric bypass surgery. 12.History of EGD and dilatation. 13.History of depression. 14.Remote history of nicotine dependence. 15.Obesity, body mass index of 44.6. 16.FULL CODE. RECOMMENDATION: Recommend to continue current medications, continue with the monitoring and symptomatic treatment. Otherwise, at this time I would monitor hemoglobin closely. Closely follow with Dr. Alejandra, possible capsule enteroscopy study. Otherwise, hold off anticoagulants and antiplatelet agents. Guarded prognosis. Further recommendations to follow. MMODL / IJN: [id number] /
[2019-03-04] MEDS: buPROPion XL 150 MG TAB.ER.24H PO SCH (09:33)
[2019-03-04] MEDS: PANTOPRAZOLE 40 MG/10 ML VIAL IV SCH ×2 (09:33→21:59)
[2019-03-04 11:49] LABS: HCT 25.3 % (34.0-46.0); HGB 8.6 gm/dL (11.4-16.0); MCH 31.7 pg (25.0-35.0); MCHC 34.1 g/dL (31.0-37.0); MCV 92.9 fL (80.0-100.0); Mean Platelet Volume 6.7; Platelet Count 175 k/uL (150-450); RBC 2.73 m/uL (3.80-5.40); RDW 15.6 % (11.5-15.5); WBC 6.4 k/uL (3.8-10.6)
--- NOTE | 2019-03-04 15:44 | P.PN ---
<Nora Jay - Last Filed: 03/04/19 15:42> Subjective Progress Note Date: 03/04/19 CHIEF COMPLAINT: GI Bleed HISTORY OF PRESENT ILLNESS: Patient examined at the bedside this morning. She reports brown/maroon colored stool this morning. Reports mild epigastric discomfort. No nausea or vomiting. Hemoglobin 8.6. CT performed yesterday without evidence of active GI bleeding. PHYSICAL EXAM: VITAL SIGNS: Currently stable. GENERAL: Well-developed in no acute distress. HEENT: No sclera icterus. Extraocular movements grossly intact. Moist buccal mucosa. Head is atraumatic, normocephalic. Hears conversational speech. No nasal drainage. NECK: Supple without lymphadenopathy. CHEST: Non-labored respirations and equal bilateral excursions. CARDIOVASCULAR: Regular rate with regular rhythm. Palpable 2+ radial pulses. ABDOMEN: Soft. Nondistended. Nontender. Mild epigastric tenderness. MUSCULOSKELETAL: No clubbing, cyanosis or edema. NEUROLOGIC: No focal or lateralizing signs. Cranial nerves II through XII grossly intact. PSYCH: Appropriate affect. Alert and oriented to person, place and time. SKIN: Well perfused. Good skin turgor. ASSESSMENT: 1. GI Bleed PLAN: Continue diet as tolerated Continue to monitor hemoglobin Endoscopy in Progress. Await Results Nurse practitioner note has been reviewed by physician. Signing provider agrees with the documented findings, assessment, and plan of care. Objective - Vital Signs Vital signs: Vital Signs Temp 98.5 F 03/04/19 13:41 Pulse 87 03/04/19 13:41 Resp 16 03/04/19 13:41 BP 140/88 03/04/19 13:41 Pulse Ox 97 03/04/19 13:41 Intake & Output 03/03/19 03/04/19 03/04/19 18:59 06:59 18:59 Intake Total 1080 540 Output Total 601 1 Balance 479 -1 540 Intake: Oral 1080 540 Output: Urine 600 Stool 1 1 Other: Voiding Method Toilet Toilet Toilet # Voids 1 2 2 # Bowel Movements 1 0 1 - Labs CBC & Chem 7: 03/04/19 11:20 03/03/19 07:40 Labs: Abnormal Lab Results - Last 24 Hours (Table) 03/04/19 Range/Units 11:20 RBC 2.73 L (3.80-5.40) m/uL Hgb 8.6 L (11.4-16.0) gm/dL Hct 25.3 L (34.0-46.0) % RDW 15.6 H (11.5-15.5) % <TrevorQian N - Last Filed: 03/06/19 13:46> Subjective CT of the abdomen and pelvis GI protocol independently reviewed without any findings of acute GI bleed. Gastric remnant with some fluid within the stomach however Hounsfield units with acute bleeding. Will await results of pill capsule endoscopy. Objective - Vital Signs Vital signs: Vital Signs Temp 98.2 F 03/06/19 12:24 Pulse 65 03/06/19 12:24 Resp 18 03/06/19 12:24 BP 125/72 03/06/19 12:24 Pulse Ox 98 03/06/19 12:24 Intake & Output 03/05/19 03/06/19 03/06/19 18:59 06:59 18:59 Intake Total 1080 900 Output Total 0 Balance 1080 900 Intake: Oral 1080 900 Output: Stool 0 Other: Voiding Method Toilet Toilet Toilet # Voids 1 2 2 - Labs CBC & Chem 7: 03/06/19 09:03 03/06/19 09:03 Labs: Abnormal Lab Results - Last 24 Hours (Table) 03/05/19 03/06/19 03/06/19 Range/Units 17:44 00:14 09:03 RBC 3.16 L 2.69 L 2.75 L (3.80-5.40) m/uL Hgb 9.7 L 8.3 L 8.5 L (11.4-16.0) gm/dL Hct 29.4 L 25.2 L 25.9 L (34.0-46.0) % Chloride (98-107) mmol/L Creatinine (0.52-1.04) mg/dL Glucose (74-99) mg/dL Calcium (8.4-10.2) mg/dL 03/06/19 Range/Units 09:03 RBC (3.80-5.40) m/uL Hgb (11.4-16.0) gm/dL Hct (34.0-46.0) % Chloride 110 H (98-107) mmol/L Creatinine 1.19 H (0.52-1.04) mg/dL Glucose 142 H (74-99) mg/dL Calcium 7.7 L (8.4-10.2) mg/dL
--- NOTE | 2019-03-04 18:20 | PN ---
PROGRESS NOTE DATE OF SERVICE: 03/04/2019. This 63-year-old woman was admitted with acute recurrent GI bleed also had melenic stools. The hemoglobin has gone down to 8.6 at this time. Gastroenterology planning capsule studies. The patient being closely monitored. PAST MEDICAL HISTORY: Reviewed. REVIEW OF SYSTEMS: Cardiovascular: No angina or palpitations. Respiration: As mentioned earlier. GI as mentioned earlier. : No nausea or vomiting. CENTRAL NERVOUS SYSTEM: No numbness or weakness. MEDICATIONS: Current medications are reviewed and include: 1. Tylenol p.r.n. 2. Bascom 5 mg q.6h p.r.n. 3. Xanax 0.5 t.i.d. 4. Wellbutrin XL 150 mg q.a.m. 5. Dilaudid 0.5 mg q.6h p.r.n. 6. Synthroid 200 mcg p.o. daily. 7. Narcan. 8. Zofran. 9. Protonix, doses reviewed. PHYSICAL EXAM: Patient is alert, oriented x 3. Pulse is 87. Blood pressure 140/80, respiration 16, temperature 98.4, pulse ox 97% on room air. HEENT: Conjunctivae normal. NECK: No jugular venous distention. CARDIOVASCULAR: S1, S2 muffled. RESPIRATORY SYSTEM: Breath sounds diminished at the bases. Scattered rhonchi and crackles. ABDOMEN: Soft, nontender. No mass palpable. LEGS are no edema. No swelling. LAB STUDIES: WBC 6.9, hemoglobin is 8.6. ASSESSMENT: 1. Acute recurrent gastrointestinal bleeding with acute blood loss anemia status post transfusion 2 units possibly diverticular bleed. Rule out other upper GI sources. 2. Continued melanotic stools. 3. History of recent lower gastrointestinal bleed from diverticulosis. 4. History of recent colonoscopy showed extensive colonic diverticulosis with no active bleeding at the time of endoscopy. 5. Diabetes type 2. 6. Gastroesophageal reflux disease. 7. Hypertension. 8. Hyperlipidemia. 9. History of gastric benign polyp. 10.History of adenoidectomy. 11.History of bariatric surgery, Immanuel-en-Y gastric bypass. 12.History of EGD and dilatation. 13.History of depression. 14.Remote history of nicotine dependence. 15.Obesity with body mass index 44.6. 16.FULL CODE. RECOMMENDATIONS AND DISCUSSION: Recommend to continue current medications, management and symptomatic treatment. As mentioned earlier, the patient has significant bleeding at this time. Capsule enteroscopy studies are underway at this time. We will continue to monitor. We will transfuse on a periodic basis. Hold off any antiplatelets, anticoagulations. Guarded prognosis because of multiple complex medical issues. Further recommendations to follow. MMODL / IJN: [id number] /
[2019-03-04 18:42] LABS: HCT 26.1 % (34.0-46.0); HGB 8.4 gm/dL (11.4-16.0); Hypochromasia Slight; MCH 30.2 pg (25.0-35.0); MCHC 32.3 g/dL (31.0-37.0); MCV 93.7 fL (80.0-100.0); Mean Platelet Volume 7.7; Platelet Count 202 k/uL (150-450); Poikilocytosis Slight; RBC 2.78 m/uL (3.80-5.40); RDW 15.6 % (11.5-15.5); WBC 6.2 k/uL (3.8-10.6)
--- NOTE | 2019-03-04 19:41 | PN ---
PROGRESS NOTE DATE OF SERVICE: March 04, 2019 Patient is a 63-year-old pleasant white female admitted to the hospital with acute GI bleed. She was just discharged home from the hospital last week at which time she was admitted with an acute GI bleed, underwent EGD colonoscopy by Dr. Murray and was diagnosed with diverticulosis. She was readmitted to the hospital with a hemoglobin of 6 g/dL requiring 2 units of blood transfusion. She continues to have maroon-colored stools. She had 3 episodes this morning, all of them in small quantity. No abdominal pain. No nausea, vomiting. PHYSICAL EXAMINATION: Appears comfortable in no apparent distress. VITAL SIGNS: Stable. Blood pressure 140/88, pulse 87, temperature 98.5. HEENT examination unremarkable. Conjunctivae pink. Sclerae anicteric. Oral cavity no lesions. NECK: No JVD or lymph node enlargement. CHEST: Clear to auscultation. HEART: Regular rate and rhythm. ABDOMEN: Soft. Bowel sounds are positive. No organomegaly. EXTREMITIES: No pedal edema. SKIN no rashes. NEUROLOGIC: Alert and oriented x3. No focal deficits. LABS: Done today WBC 6.4, hemoglobin 8.6, platelets 175. IMPRESSION: Acute gastrointestinal bleed. Recent EGD/colonoscopy showed gastritis and diverticulosis by Dr. Murray. The patient continues to have ongoing intermittent gastrointestinal bleed. She had a small bowel capsule endoscopy this afternoon, study still in progress. Hemoglobin stable at 8.6 g/dL. RECOMMENDATIONS: 1. Monitor CBC. 2. Advance to regular diet. 3. Will await results of the small bowel capsule endoscopy. 4. We will follow with you closely. Thank you for this consultation. MMODL / IJN: [id number] /
[2019-03-05 05:13] LABS: Basophils % (A) 1 %; Eosinophils # (A) 0.3 k/uL (0-0.7); Eosinophils % (A) 5 %; HCT 24.4 % (34.0-46.0); HGB 8.3 gm/dL (11.4-16.0); Hypochromasia Slight; Lymphocytes % (A) 35 %; MCH 31.7 pg (25.0-35.0); MCHC 34.1 g/dL (31.0-37.0); Mean Platelet Volume 7.4; Monocytes # (A) 0.4 k/uL (0-1.0); Monocytes % (A) 8 %; Neutrophils # (A) 2.9 k/uL (1.3-7.7); Neutrophils % (A) 51 %; Platelet Count 182 k/uL (150-450); Poikilocytosis Slight; RBC 2.62 m/uL (3.80-5.40); RDW 15.6 % (11.5-15.5); WBC 5.7 k/uL (3.8-10.6)
[2019-03-05 05:28] LABS: Calcium 7.9 mg/dL (8.4-10.2); Potassium 3.8 mmol/L (3.5-5.1)
[2019-03-05] MEDS: LEVOTHYROXINE 100 MCG TAB PO SCH (06:11)
[2019-03-05] MEDS: buPROPion XL 150 MG TAB.ER.24H PO SCH (08:22)
[2019-03-05] MEDS: PANTOPRAZOLE 40 MG/10 ML VIAL IV SCH ×2 (08:22→20:52)
[2019-03-05 12:06] LABS: Basophils % (A) 1 %; Eosinophils # (A) 0.2 k/uL (0-0.7); Eosinophils % (A) 4 %; HCT 27.2 % (34.0-46.0); HGB 9.1 gm/dL (11.4-16.0); Hypochromasia Slight; Lymphocytes # (A) 1.5 k/uL (1.0-4.8); Lymphocytes % (A) 28 %; MCH 31.2 pg (25.0-35.0); MCHC 33.4 g/dL (31.0-37.0); MCV 93.3 fL (80.0-100.0); Mean Platelet Volume 7.9; Monocytes # (A) 0.3 k/uL (0-1.0); Monocytes % (A) 6 %; Neutrophils # (A) 3.2 k/uL (1.3-7.7); Neutrophils % (A) 60 %; Platelet Count 212 k/uL (150-450); Poikilocytosis Slight; RBC 2.91 m/uL (3.80-5.40); RDW 15.3 % (11.5-15.5); WBC 5.3 k/uL (3.8-10.6)
--- NOTE | 2019-03-05 15:00 | P.PN ---
<Noar Jay - Last Filed: 03/05/19 15:00> Subjective Progress Note Date: 03/05/19 CHIEF COMPLAINT: GI Bleed HISTORY OF PRESENT ILLNESS: Patient examined at the bedside. Denies abdominal pain. She underwent capsule endoscopy yesterday. Results are pending. Hemoglobin 9.1. PHYSICAL EXAM: VITAL SIGNS: Currently stable. GENERAL: Well-developed in no acute distress. HEENT: No sclera icterus. Extraocular movements grossly intact. Moist buccal mucosa. Head is atraumatic, normocephalic. Hears conversational speech. No nasal drainage. NECK: Supple without lymphadenopathy. CHEST: Non-labored respirations and equal bilateral excursions. CARDIOVASCULAR: Regular rate with regular rhythm. Palpable 2+ radial pulses. ABDOMEN: Soft. Nondistended. Nontender. MUSCULOSKELETAL: No clubbing, cyanosis or edema. NEUROLOGIC: No focal or lateralizing signs. Cranial nerves II through XII grossly intact. PSYCH: Appropriate affect. Alert and oriented to person, place and time. SKIN: Well perfused. Good skin turgor. ASSESSMENT: 1. GI Bleed PLAN: Continue diet as tolerated Continue to monitor hemoglobin Await results of capsule endoscopy Nurse practitioner note has been reviewed by physician. Signing provider agrees with the documented findings, assessment, and plan of care. Objective - Vital Signs Vital signs: Vital Signs Temp 97.9 F 03/05/19 05:57 Pulse 60 03/05/19 05:57 Resp 17 03/05/19 05:57 BP 102/57 03/05/19 05:57 Pulse Ox 96 03/05/19 05:57 Intake & Output 03/04/19 03/05/19 03/05/19 18:59 06:59 18:59 Intake Total 540 200 Output Total 50 0 Balance 490 200 Intake: Oral 540 200 Output: Stool 50 0 Other: Voiding Method Toilet Toilet Toilet # Voids 2 1 # Bowel Movements 1 1 - Labs CBC & Chem 7: 03/05/19 11:34 03/05/19 05:02 Labs: Abnormal Lab Results - Last 24 Hours (Table) 03/04/19 03/05/19 03/05/19 Range/Units 18:23 05:02 05:02 RBC 2.78 L 2.62 L (3.80-5.40) m/uL Hgb 8.4 L 8.3 L (11.4-16.0) gm/dL Hct 26.1 L 24.4 L (34.0-46.0) % RDW 15.6 H 15.6 H (11.5-15.5) % Chloride 110 H (98-107) mmol/L Creatinine 1.13 H (0.52-1.04) mg/dL Glucose 103 H (74-99) mg/dL Calcium 7.9 L (8.4-10.2) mg/dL 03/05/19 Range/Units 11:34 RBC 2.91 L (3.80-5.40) m/uL Hgb 9.1 L (11.4-16.0) gm/dL Hct 27.2 L (34.0-46.0) % RDW (11.5-15.5) % Chloride (98-107) mmol/L Creatinine (0.52-1.04) mg/dL Glucose (74-99) mg/dL Calcium (8.4-10.2) mg/dL <Qian Murray N - Last Filed: 03/05/19 17:37> Subjective She reports decreased bowel movements. She has minimal bleeding. Still awaiting pill cam. Objective - Vital Signs Vital signs: Vital Signs Temp 98.4 F 03/05/19 14:46 Pulse 73 03/05/19 14:46 Resp 16 03/05/19 14:46 BP 119/64 03/05/19 14:46 Pulse Ox 99 03/05/19 14:46 Intake & Output 03/04/19 03/05/19 03/05/19 18:59 06:59 18:59 Intake Total 540 200 540 Output Total 50 0 Balance 490 200 540 Intake: Oral 540 200 540 Output: Stool 50 0 Other: Voiding Method Toilet Toilet Toilet # Voids 2 1 2 # Bowel Movements 1 1 - Labs CBC & Chem 7: 03/05/19 11:34 03/05/19 05:02 Labs: Abnormal Lab Results - Last 24 Hours (Table) 03/04/19 03/05/19 03/05/19 Range/Units 18:23 05:02 05:02 RBC 2.78 L 2.62 L (3.80-5.40) m/uL Hgb 8.4 L 8.3 L (11.4-16.0) gm/dL Hct 26.1 L 24.4 L (34.0-46.0) % RDW 15.6 H 15.6 H (11.5-15.5) % Chloride 110 H (98-107) mmol/L Creatinine 1.13 H (0.52-1.04) mg/dL Glucose 103 H (74-99) mg/dL Calcium 7.9 L (8.4-10.2) mg/dL 03/05/19 Range/Units 11:34 RBC 2.91 L (3.80-5.40) m/uL Hgb 9.1 L (11.4-16.0) gm/dL Hct 27.2 L (34.0-46.0) % RDW (11.5-15.5) % Chloride (98-107) mmol/L Creatinine (0.52-1.04) mg/dL Glucose (74-99) mg/dL Calcium (8.4-10.2) mg/dL
--- NOTE | 2019-03-05 16:12 | PN ---
PROGRESS NOTE DATE OF DICTATION: 03/05/2019 The patient is a 63-year-old pleasant white female admitted to the hospital with acute GI bleed. She was admitted to the hospital around Thanksgiving time with acute GI bleed and underwent EGD and colonoscopy by Dr. Murray and was diagnosed with diverticulosis. Bleeding subsided. She was discharged home. Three days later she was re- admitted to the hospital with a hemoglobin of 6 and having maroon-colored stools. She hence underwent a small bowel capsule endoscopy that was done yesterday. Small bowel capsule endoscopy showed no evidence of any mucosal pathology or active bleeding noted in the stomach or in the small bowel. The patient in the meantime states that this morning she had 2 episodes of maroon-colored stools. She denies any abdominal pain, reports no nausea, vomiting. Denies any symptoms. PHYSICAL EXAMINATION: She appears comfortable. No apparent distress. VITAL SIGNS: Stable. Blood pressure is 133/86, pulse rate 82 per minute and afebrile. HEENT examination unremarkable. Conjunctivae pink. Sclerae anicteric. Oral cavity no lesions. NECK: No JVD or lymph node enlargement. CHEST: Clear to auscultation. HEART: Regular rate and rhythm. ABDOMEN: Soft. Bowel sounds are positive. No organomegaly. EXTREMITIES: No pedal edema. SKIN: No rashes. NEUROLOGIC: Alert and oriented x3. No focal deficits. LABS: WBC 5.3, hemoglobin 9.1, platelets normal. Basic metabolic panel is within normal limits. BUN is 8, creatinine 1.13. IMPRESSION: Obscure gastrointestinal bleed. Patient had EGD and colonoscopy by Dr. Murray one week ago that showed diverticulosis and gastritis. There was no active bleeding noted at the time of examination. The patient was re-admitted to the hospital 3 days later with a hemoglobin of 6.5 requiring 2 units of blood transfusion. So far the hemoglobin has been stable at 9.1 g/dL. She has been having intermittent maroon-colored stools since being in the hospital. Small bowel capsule endoscopy done yesterday did not show any evidence of any mucosal small-bowel mucosal pathology or active bleeding. It is unclear at this time as to the etiology of bleeding; possibly diverticular bleed at this time. RECOMMENDATIONS: 1. Discussed with the patient small bowel capsule endoscopy results. 2. Will continue to observe her closely. 3. Monitor CBC on a daily basis. 4. If she has further episodes of bleeding, will consider a tagged RBC scan. In the meantime, we will monitor her closely and follow with you. Thank you for this consultation. MMCHRISL / IJN: [id number] /
[2019-03-05 18:45] LABS: Basophils # (A) 0.1 k/uL (0-0.2); Basophils % (A) 1 %; Eosinophils # (A) 0.3 k/uL (0-0.7); Eosinophils % (A) 4 %; HCT 29.4 % (34.0-46.0); HGB 9.7 gm/dL (11.4-16.0); Hypochromasia Slight; Lymphocytes # (A) 1.9 k/uL (1.0-4.8); Lymphocytes % (A) 24 %; MCH 30.7 pg (25.0-35.0); Mean Platelet Volume 7.3; Monocytes # (A) 0.5 k/uL (0-1.0); Monocytes % (A) 7 %; Neutrophils % (A) 64 %; Platelet Count 253 k/uL (150-450); Poikilocytosis Slight; RBC 3.16 m/uL (3.80-5.40); RDW 15.3 % (11.5-15.5); WBC 7.9 k/uL (3.8-10.6)
--- NOTE | 2019-03-05 20:48 | PN ---
PROGRESS NOTE DATE OF SERVICE: 03/05/2019 This 63-year-old woman who was admitted with acute recurrent GI bleed secondary to acute blood loss anemia, status post transfusion, had a diverticular bleed also possibly. The EGD and colonoscopy did not show an acute abnormality, nor did a capsule study. Dr. Alejandra is following the patient closely. The patient had a small amount of maroon blood today. PHYSICAL EXAMINATION: Alert and oriented x3. The pulse is 73, blood pressure 119/64, respiration 16, temperature 98.4, pulse ox 99% on room air. HEENT: Conjunctivae normal. NECK: No jugular venous distention. CARDIOVASCULAR SYSTEM: S1, S2 muffled. RESPIRATORY SYSTEM: Breath sounds diminished at the bases. A few scattered rhonchi. No crackles. ABDOMEN: Soft, non-tender. LEGS: No edema. No swelling. NERVOUS SYSTEM: No focal deficit. LABS: WBC 5.3, hemoglobin 9.1. Other labs are noted. ASSESSMENT: 1. Acute recurrent gastrointestinal bleed with acute blood loss anemia, status post transfusion of 2 units; possibly diverticular bleed. Rule out other upper GI sources. 2. Continued melanotic stools. 3. History of recent lower gastrointestinal bleeding from diverticulosis. 4. History of recent colonoscopy that showed extensive colonic diverticulosis with no active bleeding at the time of endoscopy. 5. Diabetes mellitus, type 2. 6. Gastroesophageal reflux disease. 7. Hypertension. 8. Hyperlipidemia. 9. History of gastric benign polyp. 10.History of adenoidectomy. 11.History of bariatric surgery, Immanuel-en-Y gastric bypass. 12.History of esophagogastroduodenoscopy, dilatation. 13.History of depression. 14.Remote history of nicotine dependence. 15.Obesity with body mass index of 44.6. 16.FULL CODE. RECOMMENDATIONS AND DISCUSSION: I recommend to continue current medications, continue with the monitoring, symptomatic treatment. The capsule study is normal. Will monitor CBC and BMP. Discussed with Dr. Alejandra. Other test may not be useful at this time because of the lack of brisk bleeding at this time. Continue to monitor. Further recommendations to follow. MMODL / IJN: [id number] / MTDD
[2019-03-06 00:33] LABS: Basophils % (A) 1 %; Eosinophils # (A) 0.3 k/uL (0-0.7); Eosinophils % (A) 5 %; HCT 25.2 % (34.0-46.0); HGB 8.3 gm/dL (11.4-16.0); Hypochromasia Slight; Lymphocytes # (A) 2.1 k/uL (1.0-4.8); Lymphocytes % (A) 31 %; MCH 30.8 pg (25.0-35.0); MCHC 32.8 g/dL (31.0-37.0); MCV 93.8 fL (80.0-100.0); Mean Platelet Volume 6.9; Monocytes # (A) 0.4 k/uL (0-1.0); Monocytes % (A) 6 %; Neutrophils # (A) 3.8 k/uL (1.3-7.7); Neutrophils % (A) 56 %; Platelet Count 209 k/uL (150-450); Poikilocytosis Slight; RBC 2.69 m/uL (3.80-5.40); RDW 15.1 % (11.5-15.5); WBC 6.9 k/uL (3.8-10.6)
[2019-03-06] MEDS: LEVOTHYROXINE 100 MCG TAB PO SCH (05:56)
[2019-03-06] MEDS: buPROPion XL 150 MG TAB.ER.24H PO SCH (07:09)
[2019-03-06] MEDS: PANTOPRAZOLE 40 MG/10 ML VIAL IV SCH (07:09)
[2019-03-06 09:46] LABS: Basophils % (A) 1 %; Eosinophils # (A) 0.2 k/uL (0-0.7); Eosinophils % (A) 4 %; HCT 25.9 % (34.0-46.0); HGB 8.5 gm/dL (11.4-16.0); Hypochromasia Slight; Lymphocytes % (A) 22 %; MCH 30.8 pg (25.0-35.0); MCHC 32.7 g/dL (31.0-37.0); MCV 94.1 fL (80.0-100.0); Mean Platelet Volume 6.8; Monocytes # (A) 0.3 k/uL (0-1.0); Monocytes % (A) 6 %; Neutrophils # (A) 3.1 k/uL (1.3-7.7); Neutrophils % (A) 66 %; Platelet Count 187 k/uL (150-450); Poikilocytosis Slight; RBC 2.75 m/uL (3.80-5.40); RDW 15.1 % (11.5-15.5); WBC 4.6 k/uL (3.8-10.6)
[2019-03-06 10:05] LABS: Calcium 7.7 mg/dL (8.4-10.2); Potassium 3.8 mmol/L (3.5-5.1)
--- NOTE | 2019-03-06 11:34 | P.PN ---
Subjective Progress Note Date: 03/06/19 CHIEF COMPLAINT: GI Bleed HISTORY OF PRESENT ILLNESS: Patient examined at the bedside. Denies abdominal pain except mild epigastric/mid abdomen discomfort after eating. She states she was told capsule endoscopy did not reveal any bleeding. She denies further rect al bleeding. No bowel movement yet today. Hemoglobin 8.5. PHYSICAL EXAM: VITAL SIGNS: Currently stable. GENERAL: Well-developed in no acute distress. HEENT: No sclera icterus. Extraocular movements grossly intact. Moist buccal mucosa. Head is atraumatic, normocephalic. Hears conversational speech. No nasal drainage. NECK: Supple without lymphadenopathy. CHEST: Non-labored respirations and equal bilateral excursions. CARDIOVASCULAR: Regular rate with regular rhythm. Palpable 2+ radial pulses. ABDOMEN: Soft. Nondistended. Nontender. MUSCULOSKELETAL: No clubbing, cyanosis or edema. NEUROLOGIC: No focal or lateralizing signs. Cranial nerves II through XII gr ossly intact. PSYCH: Appropriate affect. Alert and oriented to person, place and time. SKIN: Well perfused. Good skin turgor. ASSESSMENT: 1. GI Bleed PLAN: Continue regular diet. Modify diet to high protein per Dr. Murray Continue to monitor hemoglobin Possibility of bleeding from excluded stomach still remains. Dr. Murray recommends increasing patients home dose of Protonix to 40mg PO BID. Stable for discharge from a surgical standpoint if patient has a nonbloody bowel movement today Nurse practitioner note has been reviewed by physician. Signing provider agrees with the documented findings, assessment, and plan of care. Objective - Vital Signs Vital signs: Vital Signs Temp 98.0 F 03/06/19 05:31 Pulse 74 03/06/19 05:31 Resp 17 03/06/19 08:00 BP 104/58 03/06/19 05:31 Pulse Ox 97 03/06/19 05:31 Intake & Output 03/05/19 03/06/19 03/06/19 18:59 06:59 18:59 Intake Total 1080 900 Output Total 0 Balance 1080 900 Intake: Oral 1080 900 Output: Stool 0 Other: Voiding Method Toilet Toilet Toilet # Voids 1 2 - Labs CBC & Chem 7: 03/06/19 09:03 03/06/19 09:03 Labs: Abnormal Lab Results - Last 24 Hours (Table) 03/05/19 03/05/19 03/06/19 Range/Units 11:34 17:44 00:14 RBC 2.91 L 3.16 L 2.69 L (3.80-5.40) m/uL Hgb 9.1 L 9.7 L 8.3 L (11.4-16.0) gm/dL Hct 27.2 L 29.4 L 25.2 L (34.0-46.0) % Chloride (98-107) mmol/L Creatinine (0.52-1.04) mg/dL Glucose (74-99) mg/dL Calcium (8.4-10.2) mg/dL 03/06/19 03/06/19 Range/Units 09:03 09:03 RBC 2.75 L (3.80-5.40) m/uL Hgb 8.5 L (11.4-16.0) gm/dL Hct 25.9 L (34.0-46.0) % Chloride 110 H (98-107) mmol/L Creatinine 1.19 H (0.52-1.04) mg/dL Glucose 142 H (74-99) mg/dL Calcium 7.7 L (8.4-10.2) mg/dL
--- NOTE | 2019-03-06 19:07 | PN ---
PROGRESS NOTE DATE OF SERVICE: 03/06/2019 This 63-year-old woman who was admitted with recurrent GI bleed is being closely monitored. The patient had some GI bleeding yesterday, but today no more bleeding is noted. No fever. No cough. The patient had a negative capsule endoscopy yesterday and most recent negative endoscopies recently also. No chest pain. No palpitations. No fever. PHYSICAL EXAMINATION: Alert and oriented x3. Pulse 65, blood pressure 125/72, respiration 18, temperature 98.2, pulse ox 98% on room air. HEENT: Conjunctivae normal. NECK: No jugular venous distention. CARDIOVASCULAR SYSTEM: S1, S2 muffled. RESPIRATORY SYSTEM: Breath sounds diminished at the bases. No rhonchi. No crackles. ABDOMEN: Soft, obese, non-tender. No mass palpable. LEGS: No edema. No swelling. NERVOUS SYSTEM: No focal deficit. LABS: WBC 4.6, hemoglobin 8.5. Creatinine is 1.19. ASSESSMENT: 1. Acute recurrent gastrointestinal bleed with acute blood loss anemia, status post transfusion of 2 units; possibly diverticular bleed. Rule out other source for GI bleeding. 2. Continued melanotic stools. 3. History of recent lower gastrointestinal bleeding; possibly diverticulosis. 4. History of recent colonoscopy that showed extensive colonic diverticulosis with no evidence of active bleeding at the time of endoscopy. 5. Diabetes mellitus, type 2. 6. Gastroesophageal reflux disease. 7. Hypertension. 8. Hyperlipidemia. 9. History of gastric benign polyp. 10.History of adenoidectomy. 11.History of bariatric surgery, Immanuel-en-Y gastric bypass. 12.History of esophagogastroduodenoscopy, dilatation. 13.History of depression. 14.Remote history of nicotine dependence. 15.Obesity with body mass index of 44.6. 16.FULL CODE. RECOMMENDATIONS AND DISCUSSION: I recommend to continue current medications, continue with the monitoring, symptomatic treatment. Continue with monitoring hemoglobin. Discussed with Dr. Alejandra; no role for any further evaluation at this time because there is no active bleeding. We will continue to monitor and re-evaluate. Further recommendations to follow. Prognosis guarded. MMODL / IJN: [id number] /
--- NOTE | 2019-03-06 20:37 | PN ---
PROGRESS NOTE DATE OF DICTATION: 03/06/2019 The patient is a 63-year-old pleasant white female admitted to the hospital with acute GI bleed. She underwent a small bowel capsule endoscopy 2 days ago that was completely unremarkable with no active bleeding noted. In the meantime today patient states she is feeling better. She did not have any bowel movements all day today. Overall she is feeling better. No abdominal pain. No nausea, vomiting. PHYSICAL EXAMINATION: Blood pressure is 125/72, pulse rate 65, temperature 98.2. HEENT examination unremarkable. Conjunctivae pink. Sclerae anicteric. Oral cavity no lesions. NECK: No JVD or lymph node enlargement. CHEST: Clear to auscultation. HEART: Regular rate and rhythm. ABDOMEN: Soft. Bowel sounds are positive. No organomegaly. EXTREMITIES: No pedal edema. SKIN: No rashes. NEUROLOGIC: Alert and oriented x3. No focal deficits. LABS: Labs from today show hemoglobin 8.5, WBC 4.5. Platelets are normal. Basic metabolic panel is within normal limits. IMPRESSION: Obscure gastrointestinal bleed, possibly diverticular in etiology. As mentioned earlier, she had EGD and colonoscopy by Dr. Murray a week ago that showed diverticulosis and gastritis. Small bowel capsule endoscopy 2 days ago did not show any evidence of active bleeding or mucosal pathology. In the meantime, it appears that the bleeding has subsided. Hemoglobin remains stable at 8.5 g/dL. RECOMMENDATIONS: Repeat labs in the morning. If her hemoglobin is stable, she can be discharged home with outpatient followup as needed. Thank you for this consultation. MMODL / IJN: [id number] /
[2019-03-06] MEDS: PANTOPRAZOLE 40 MG TABLET PO SCH (20:58)
[2019-03-07] MEDS: LEVOTHYROXINE 100 MCG TAB PO SCH (05:37)
[2019-03-07 08:11] LABS: Basophils % (A) 0 %; Eosinophils # (A) 0.3 k/uL (0-0.7); Eosinophils % (A) 5 %; HCT 27.5 % (34.0-46.0); Hypochromasia Slight; Lymphocytes # (A) 1.5 k/uL (1.0-4.8); Lymphocytes % (A) 26 %; MCH 30.7 pg (25.0-35.0); MCHC 32.7 g/dL (31.0-37.0); MCV 93.8 fL (80.0-100.0); Mean Platelet Volume 8.3; Monocytes # (A) 0.3 k/uL (0-1.0); Monocytes % (A) 5 %; Neutrophils # (A) 3.6 k/uL (1.3-7.7); Neutrophils % (A) 62 %; Platelet Count 216 k/uL (150-450); Poikilocytosis Slight; RBC 2.93 m/uL (3.80-5.40); RDW 14.9 % (11.5-15.5); WBC 5.8 k/uL (3.8-10.6)
[2019-03-07 08:23] LABS: Calcium 7.7 mg/dL (8.4-10.2); Potassium 4.1 mmol/L (3.5-5.1)
[2019-03-07] MEDS: PANTOPRAZOLE 40 MG TABLET PO SCH (09:16)
[2019-03-07] MEDS: buPROPion XL 150 MG TAB.ER.24H PO SCH (09:16)
[2019-03-07 09:42] VITALS: BMI 42.7
[2019-03-07 12:58] VITALS: BP 131/62; PULSE 67; RESP 16; TEMP 98.1
--- NOTE | 2019-03-07 13:11 | P.PN ---
Subjective Progress Note Date: 03/07/19 CHIEF COMPLAINT: GI Bleed HISTORY OF PRESENT ILLNESS: Patient examined at the bedside. Patient denies abdominal pain. Denies nausea or vomiting. Tolerating diet. Denies further rectal bleeding. PHYSICAL EXAM: VITAL SIGNS: Currently stable. GENERAL: Well-developed in no acute distress. HEENT: No sclera icterus. Extraocular movements grossly intact. Moist buccal mucosa. Head is atraumatic, normocephalic. Hears conversational speech. No nasal drainage. NECK: Supple without lymphadenopathy. CHEST: Non-labored respirations and equal bilateral excursions. CARDIOVASCULAR: Regular rate with regular rhythm. Palpable 2+ radial pulses. ABDOMEN: Soft. Nondistended. Nontender. MUSCULOSKELETAL: No clubbing, cyanosis or edema. NEUROLOGIC: No focal or lateralizing signs. Cranial nerves II through XII grossly intact. PSYCH: Appropriate affect. Alert and oriented to person, place and time. SKIN: Well perfused. Good skin turgor. ASSESSMENT: 1. GI Bleed PLAN: Continue regular diet/high-protein diet Continue to monitor hemoglobin Possibility of bleeding from excluded stomach still remains. Continue Protonix to 40mg PO BID. Stable for discharge from a surgical standpoint if patient has a nonbloody bowel movement today Nurse practitioner note has been reviewed by physician. Signing provider agrees with the documented findings, assessment, and plan of care. Objective - Vital Signs Vital signs: Vital Signs Temp 98.1 F 03/07/19 12:57 Pulse 67 03/07/19 12:57 Resp 16 03/07/19 12:57 BP 131/62 03/07/19 12:57 Pulse Ox 99 03/07/19 12:57 Intake & Output 03/06/19 03/07/19 03/07/19 18:59 06:59 18:59 Intake Total 900 180 Output Total 0 0 Balance 0 900 180 Weight 113 kg Intake: Oral 900 180 Output: Stool 0 0 Other: Voiding Method Toilet Toilet # Voids 1 2 - Labs CBC & Chem 7: 03/07/19 07:49 03/07/19 07:49 Labs: Abnormal Lab Results - Last 24 Hours (Table) 03/07/19 03/07/19 Range/Units 07:49 07:49 RBC 2.93 L (3.80-5.40) m/uL Hgb 9.0 L (11.4-16.0) gm/dL Hct 27.5 L (34.0-46.0) % Chloride 109 H (98-107) mmol/L Creatinine 1.28 H (0.52-1.04) mg/dL Glucose 136 H (74-99) mg/dL Calcium 7.7 L (8.4-10.2) mg/dL
--- NOTE | 2019-03-07 18:23 | PN ---
PROGRESS NOTE DATE OF DICTATION: 03/07/2019 Patient is a 63-year-old pleasant white female admitted to the hospital with acute GI bleed. She is doing much better today. No further episodes of bleeding. No nausea, vomiting. No abdominal pain. She in fact had no bowel movements for the last 2 days. PHYSICAL EXAMINATION: Appears comfortable. No apparent distress. Vital signs are stable. Blood pressure 131/62, pulse rate 67, temperature 98.8. HEENT examination unremarkable. Conjunctivae pink. Sclerae anicteric. Oral cavity no lesions. NECK: No JVD or lymph node enlargement. CHEST: Clear to auscultation. HEART: Regular rate and rhythm. ABDOMEN: Soft. Bowel sounds are positive. No organomegaly. EXTREMITIES: No pedal edema. SKIN: No rashes. NEUROLOGIC: Alert and oriented x3. No focal deficits. LABS: Labs from today show WBC 5.8, hemoglobin 9, platelets normal. Basic metabolic panel is within normal limits. IMPRESSION: Obscure gastrointestinal bleed. EGD and colonoscopy [address] Murray showed diverticulosis and gastritis. Small bowel capsule endoscopy 3 days ago was unremarkable. Patient with no further episodes of active bleeding. She is doing well. RECOMMENDATIONS: 1. Regular diet. 2. Monitor CBC daily. 3. She can be discharged home tomorrow with outpatient followup as needed if she has recurrent bleeding. Thank you for this consultation. MMODL / MAKAYLAN: [id number] /
--- NOTE | 2019-03-07 23:01 | DS ---
DISCHARGE SUMMARY DATE OF SERVICE: 03/07/2019 FINAL DIAGNOSES: 1. Acute recurrent gastrointestinal bleed with acute blood loss anemia status post transfusion of 2 units possibly diverticular bleed. Rule out other source of gastrointestinal bleed. 2. Continued melanotic stools, improved. 3. History of recent lower gastrointestinal bleeding possible diverticulosis. 4. History of recent colonoscopy that showed extensive chronic diverticulosis with no evidence of active bleeding at the time of endoscopy. 5. Diabetes type 2. 6. History of gastroesophageal reflux disease. 7. Hypertension. 8. Hyperlipidemia. 9. History of gastric benign polyp. 10.History of adenoidectomy. 11.History of bariatric surgery, Immanuel-en-Y gastric bypass. 12.History EGD dilatation. 13.History of depression. 14.Remote history of nicotine dependence. 15.Obesity with body mass index of 44.6. 16.FULL CODE. DISCHARGE DISPOSITION: The patient will be discharged in stable condition with guarded prognosis. Total time taken: 35 minutes. HISTORY OF PRESENT ILLNESS: This 63-year-old woman with a past medical history of multiple medical problems was admitted with acute lower GI bleed which is recurrent. Hemoglobin went up to 6.8. Two units were transfused. Patient stabilized. During the last admission, patient had EGD and colonoscopy. During this admission, patient was evaluated by surgery and as well as Gastroenterology Dr. Alejandra and capsule enteroscopy was done which did not show acute abnormality. The patient had occasional maroon colored stools which is stabilized at this time. Hemoglobin is 8.5 and 9 at this time, so the patient was evaluated by Dr. Murray and Dr. Alejandra recommend the patient be discharged. The patient is followed by Dr. Stephy Harris in the outpatient setting. On exam, vitals are stable. Cardiovascular S1, S2. Abdomen soft. Nervous system: No focal deficits. DISCHARGE ADVICE AND MEDICATIONS: 1. No NSAIDs. 2. No aspirin. 3. No anticoagulation. DISCHARGE MEDICATIONS: 1. Lipitor 20 mg p.o. daily. 2. Multivitamins 1 p.o. daily. 3. Norvasc 10 mg p.o. daily. 4. Synthroid 200 mcg p.o. daily. 5. Vitamin B12 500 mcg p.o. daily. 6. Vitamin D3 10,000 daily. 7. Wellbutrin XL 150 mg q.a.m. 8. Zinc 50 mg p.o. b.i.d. 9. Protonix 40 mg p.o. b.i.d. Once again patient discharged in stable condition with guarded prognosis. MMCHRISL / MAKAYLAN: [id number] /
== END 2019-03-07 18:13 | disposition home or self-care (01) | DRG 378 ==
LOC: EC 10:38 → 2SICU 13:23 → 4MS4W 03-02 17:20
PROVIDERS: ADMIT Hospitalist; ATTEND Hospitalist
PROC: 30233N1 Transfusion of Nonautologous Red Blood Cells into Peripheral Vein, Percutaneous Approach (ICD-10-PCS; principal; 2019-02-28)
PROC: 0DJ07ZZ Inspection of Upper Intestinal Tract, Via Natural or Artificial Opening (ICD-10-PCS; 2019-03-04)
DX: K57.31 Diverticulosis of large intestine without perforation or abscess with bleeding (principal); D62 Acute posthemorrhagic anemia; Z68.41 Body mass index [BMI] 40.0-44.9, adult; E66.01 Morbid (severe) obesity due to excess calories; E11.9 Type 2 diabetes mellitus without complications; E78.5 Hyperlipidemia, unspecified; E89.0 Postprocedural hypothyroidism; F32.9 Major depressive disorder, single episode, unspecified; I10 Essential (primary) hypertension; K21.9 Gastro-esophageal reflux disease without esophagitis; K29.70 Gastritis, unspecified, without bleeding; K64.1 Second degree hemorrhoids; K64.4 Residual hemorrhoidal skin tags; E55.9 Vitamin D deficiency, unspecified; K44.9 Diaphragmatic hernia without obstruction or gangrene; M19.90 Unspecified osteoarthritis, unspecified site; Z79.890 Hormone replacement therapy; Z79.899 Other long term (current) drug therapy; Z88.8 Allergy status to other drugs, medicaments and biological substances; Z90.5 Acquired absence of kidney; Z98.84 Bariatric surgery status; Z90.49 Acquired absence of other specified parts of digestive tract; Z98.51 Tubal ligation status; Z87.891 Personal history of nicotine dependence; Z80.1 Family history of malignant neoplasm of trachea, bronchus and lung; Z80.3 Family history of malignant neoplasm of breast; Z82.49 Family history of ischemic heart disease and other diseases of the circulatory system
CPT/HCPCS: 36415; 71045; 74178; 80048; 80053; 83735; 85025; 85027; 86850; 86900; 86901; 86920; 91110; 96374; 99285

== ENCOUNTER → 2019-03-13 | Outpatient (CLI) | payer OTHER ==
[~2019-03-13] MED LIST changes: +FERUMOXYTOL 510 MG in SODIUM CHLORIDE 0.9% 50 ML IVPB ONE; -LACTATED RINGERS 1,000 ML IV SCH; +SODIUM CHLORIDE 0.9% 500 ML 500 ML in EMPTY BAG 1 BAG IV PRN
[2019-03-13 10:01] VITALS: BP 136/83; PULSE 87; RESP 16; TEMP 98.1; BMI 42.7
--- NOTE | 2019-03-13 10:12 | P.PN ---
Subjective Progress Note Date: 03/13/[address] bleeding. Will place on BID. Recommend Omeprazole 40 BID. Needed to poop brown poops. Hold MVI for 1 month. April 07 restart. New script for Prilosec 40 BID. Recommend iron infusion. Objective - Vital Signs Vital signs: Vital Signs Temp 98.1 F 03/13/19 09:59 Pulse 87 03/13/19 09:59 Resp 16 03/13/19 09:59 BP 136/83 03/13/19 09:59 Pulse Ox Intake & Output 03/12/19 03/13/19 03/13/19 18:59 06:59 18:59 Weight 110.223 kg
--- NOTE | 2019-03-13 10:26 | P.PN ---
Progress Note - Text Progress Note Date: 03/13/19 To Whom It May Concern: Laura Bishop is undergoing my surgical care. She's been hospitalized for the past 1-2 weeks. She may return to work with light duty 03/24/2019. She will be on a 10 pound restriction through the holidays. She'll be off restrictions 04/07/2019 Regards, Qian Murray MD, FACS
== END ==
LOC: BARWHC3 09:40
PROVIDERS: ATTEND Surgery Plastic and Reconstructive Surgery
DX: D50.9 Iron deficiency anemia, unspecified (principal)
CPT/HCPCS: 99211; 96365; Q0138

== ENCOUNTER → 2019-03-19 | Outpatient (CLI) | payer OTHER ==
[2019-03-19 10:27] VITALS: BP 149/81; PULSE 62; RESP 16; TEMP 97.9
== END | disposition home or self-care (01) ==
LOC: PROCWHC3 10:10
PROVIDERS: ATTEND Surgery Plastic and Reconstructive Surgery
DX: D50.9 Iron deficiency anemia, unspecified (principal)
CPT/HCPCS: 96365; Q0138

== ENCOUNTER → 2019-04-23 | Outpatient (CLI) | payer OTHER ==
[2019-04-23 14:20] VITALS: BP 153/88; PULSE 84; RESP 16; TEMP 98.5; BMI 44.6
--- NOTE | 2019-04-23 15:36 | P.PN ---
Subjective Progress Note Date: 04/23/19 DATE OR SERVICE: 04/23/2019 CHIEF COMPLAINT: Status post gastric bypass HISTORY OF PRESENT ILLNESS: Laura Bishop is a 63-year-old female status post gastric bypass, 12/17/2017. She was hospitalized for gastrointestinal bleeding within the last 1 month. She has history of bleeding from diverticulosis. She reports fatigue. No further bleeding since she has been discharged home. Her ideal body weight for her height is 140 pounds for 5 feet 3.25 inches. Her highest weight was 362 pounds. Her highest body mass index was 63.8. She comes in 253 pounds from 252 pounds, 4 months ago. She has gained 1 pound in 4 months. She has lost 109 pounds lifetime. Percent excess weight loss is 49%. PHYSICAL EXAM: VITAL SIGNS: Height 5 foot 3.25 inches, weight 253 pounds. BMI 44.6 Vital Signs Temp 98.5 F 04/23/19 14:17 Pulse 84 04/23/19 14:17 Resp 16 04/23/19 14:17 BP 153/88 04/23/19 14:17 Pulse Ox GENERAL: Well-developed female in no acute distress. HEENT: No scleral icterus. Extraocular movements grossly intact. Hears conversational speech. No nasal drainage. NECK: Supple without lymphadenopathy. Well-healed collar incision from previous thyroidectomy. CHEST: Nonlabored respirations with equal bilateral excursions. CARDIOVASCULAR: Bradycardic. Distal 2+ pulses. ABDOMEN: Soft, nontender. Nondistended. No hernias. MUSCULOSKELETAL: No clubbing, cyanosis. NEURO: No focal or lateralizing signs. Cranial nerves 2 through 12 grossly within normal limits. PSYCH: Appropriate affect. Alert and oriented to person, place and time. SKIN: Good skin turgor. Well perfused. LABS: Reviewed ASSESSMENT: 1. Morbid obesity due to excess calories. 2. Body mass index 63.4 down to 44.3 3. Status post gastric bypass 4. Dysphagia 5. Atypical chest pain 6. History of gastrointestinal bleeding 7. Diverticulosis PLAN: 1. Recommend bariatric labs 2. Recommend Miralax for history of diverticulosis Laboratory Last Values WBC 7.6 k/uL (3.8-10.6) 04/23/19 16:16 RBC 5.07 m/uL (3.80-5.40) 04/23/19 16:16 Hgb 14.7 gm/dL (11.4-16.0) D 04/23/19 16:16 Hct 47.6 % (34.0-46.0) H 04/23/19 16:16 MCV 93.8 fL (80.0-100.0) 04/23/19 16:16 MCH 29.0 pg (25.0-35.0) 04/23/19 16:16 MCHC 31.0 g/dL (31.0-37.0) 04/23/19 16:16 RDW 15.0 % (11.5-15.5) 04/23/19 16:16 Plt Count 201 k/uL (150-450) 04/23/19 16:16 Hypochromasia Slight 04/23/19 16:16 PT 9.4 sec (9.0-12.0) 04/23/19 16:16 INR 0.9 (<1.2) 04/23/19 16:16 APTT 23.8 sec (22.0-30.0) 04/23/19 16:16 Sodium 141 mmol/L (135-145) 04/23/19 16:16 Potassium 4.6 mmol/L (3.5-5.5) 04/23/19 16:16 Chloride 104 mmol/L (96-109) 04/23/19 16:16 Carbon Dioxide 27.9 mmol/L (21.6-31.8) 04/23/19 16:16 Anion Gap 9.10 mmol/L (4.00-12.00) 04/23/19 16:16 BUN 22.0 mg/dL (9.0-27.0) 04/23/19 16:16 Creatinine 1.0 mg/dL (0.6-1.5) 04/23/19 16:16 Est GFR (CKD-EPI)AfAm 69.9 (60.0-200.0) 04/23/19 16:16 Est GFR (CKD-EPI)NonAf 60.3 (60.0-200.0) 04/23/19 16:16 BUN/Creatinine Ratio 22.00 Ratio (12.00-20.00) H 04/23/19 16:16 Glucose 147 mg/dL (70-110) H 04/23/19 16:[address] Glu mg/dL 128 04/23/19 16:16 Hemoglobin A1c 6.1 % (4.0-6.0) H 04/23/19 16:16 Calcium 8.9 mg/dL (8.7-10.3) 04/23/19 16:16 Phosphorus 3.7 mg/dL (2.4-5.1) 04/23/19 16:16 Magnesium 2.1 mg/dL (1.5-2.4) 04/23/19 16:16 Iron 26 ug/dL (50-170) L 04/23/19 16:16 TIBC 330 ug/dL (228-460) 04/23/19 16:16 % Saturation 7.88 (12.00-45.00) L 04/23/19 16:16 Ferritin 38.5 ng/mL (10.0-291.0) 04/23/19 16:16 Total Bilirubin 0.2 mg/dL (0.3-1.2) L 04/23/19 16:16 AST 24 U/L (13-35) 04/23/19 16:16 ALT 16 U/L (8-44) 04/23/19 16:16 Alkaline Phosphatase 126 U/L (41-126) 04/23/19 16:16 Total Protein 6.6 g/dL (6.2-8.2) 04/23/19 16:16 Albumin 4.40 g/dL (3.80-4.90) 04/23/19 16:16 Globulin 2.2 g/dL (1.6-3.3) 04/23/19 16:16 Albumin/Globulin Ratio 2.00 g/dL (1.60-3.17) 04/23/19 16:16 Prealbumin 22.0 mg/dL (18.0-42.0) 04/23/19 16:16 Triglycerides 157.0 mg/dL (0.0-149.0) H 04/23/19 16:16 Cholesterol 199 mg/dL (0-200) 04/23/19 16:16 LDL Cholesterol, Calc 108.6 mg/dL (0.0-131.0) 04/23/19 16:16 VLDL Cholesterol, Calc 31.40 mg/dL (5.00-40.00) 04/23/19 16:16 HDL Cholesterol 59.0 mg/dL (40.0-60.0) 04/23/19 16:16 Cholesterol/HDL Ratio 3.37 04/23/19 16:16 Vitamin A 55 ug/dL (38-106) 04/23/19 16:16 Vitamin B1 111 ug/L (38-122) 04/23/19 16:16 Vitamin B12 1200.0 pg/mL (200.0-944.0) H 04/23/19 16:16 Vitamin D 25-Hydroxy 40.0 ng/mL (30.0-100.0) 04/23/19 16:16 Folate 22.5 ng/mL 04/23/19 16:16 TSH 7.600 uIU/mL (0.350-5.500) H 04/23/19 16:16 PTH Intact 72.8 pg/mL (14.0-72.0) H 04/23/19 16:16 Copper 1294 ug/L (810-1990) 04/23/19 16:16 Selenium 98 mcg/L (63-160) 04/23/19 16:16 Zinc 69 ug/dL (60-130) 04/23/19 16:16 Iron is low Vitamin D is low TSH is elevated PTH is elevated Objective - Vital Signs Vital signs: Vital Signs Temp 98.5 F 04/23/19 14:17 Pulse 84 04/23/19 14:17 Resp 16 04/23/19 14:17 BP 153/88 04/23/19 14:17 Pulse Ox Intake & Output 04/22/19 04/23/19 04/23/19 18:59 06:59 18:59 Weight 115.212 kg - Labs CBC & Chem 7: 04/23/19 16:16 04/23/19 16:16
[2019-04-23 16:58] LABS: HCT 47.6 % (34.0-46.0); Hypochromasia Slight; MCV 93.8 fL (80.0-100.0); Mean Platelet Volume 8.7; Platelet Count 201 k/uL (150-450); RBC 5.07 m/uL (3.80-5.40); WBC 7.6 k/uL (3.8-10.6)
[2019-04-23 17:28] LABS: INR 0.9 (<1.2); Partial Thromboplastin Time 23.8 sec (22.0-30.0); Prothrombin Time 9.4 sec (9.0-12.0)
[2019-04-23 23:06] LABS: HGB 14.7 gm/dL (11.4-16.0)
[2019-04-24 02:00] LABS: Ferritin 38.5 ng/mL (10.0-291.0)
[2019-04-24 02:10] LABS: % Iron Saturation 7.88 (12.00-45.00); African American GFR (CKD) 69.9 (60.0-200.0); Albumin 4.4 g/dL (3.80-4.90); Anion Gap 9.1 mmol/L (4.00-12.00); Calcium 8.9 mg/dL (8.7-10.3); Carbon Dioxide 27.9 mmol/L (21.6-31.8); Chol/HDL Ratio 3.37; Folate, Serum 22.5 ng/mL; Globulin 2.2 g/dL (1.6-3.3); LDL Cholesterol,Calculated 108.6 mg/dL (0.0-131.0); Magnesium 2.1 mg/dL (1.5-2.4); Non-African American GFR(CKD) 60.3 (60.0-200.0); Phosphorus 3.7 mg/dL (2.4-5.1); Potassium 4.6 mmol/L (3.5-5.5); Total Bilirubin 0.2 mg/dL (0.3-1.2); Total Protein 6.6 g/dL (6.2-8.2); VLDL Calculation 31.4 mg/dL (5.00-40.00)
[2019-04-24 02:42] LABS: Hemoglobin A1C 6.1 % (4.0-6.0)
[2019-04-25 11:05] LABS: Zinc, Serum 69 ug/dL (60-130)
[2019-04-25 15:16] LABS: Vitamin A 55 ug/dL (38-106)
[2019-04-27 01:20] LABS: Selenium 98 mcg/L (63-160)
[2019-04-28 08:30] LABS: Vit B1(Thiamine) 111 ug/L (38-122)
== END | disposition home or self-care (01) ==
LOC: BARWHC3 13:58
PROVIDERS: ATTEND Surgery Plastic and Reconstructive Surgery
DX: Z48.815 Encounter for surgical aftercare following surgery on the digestive system (principal); E66.01 Morbid (severe) obesity due to excess calories; K57.90 Diverticulosis of intestine, part unspecified, without perforation or abscess without bleeding; R13.10 Dysphagia, unspecified; R07.89 Other chest pain; Z87.19 Personal history of other diseases of the digestive system; Z98.84 Bariatric surgery status; Z68.41 Body mass index [BMI] 40.0-44.9, adult
CPT/HCPCS: 80053; 80061; 82306; 82525; 82607; 82728; 82746; 83036; 83540; 83550; 83735; 83970; 84100; 84134; 84255; 84425; 84443; 84590; 84630; 85027; 85610; 85730; 99211

== ENCOUNTER → 2019-05-21 | Outpatient (CLI) | payer OTHER ==
--- NOTE | 2019-05-21 16:01 | P.PN ---
Subjective Progress Note Date: 05/21/19 DATE OR SERVICE: 05/21/2019 CHIEF COMPLAINT: Status post gastric bypass HISTORY OF PRESENT ILLNESS: Laura Bishop is a 64-year-old female status post gastric bypass, 12/17/2017. She is over 1 year out. She reports new bleeding from her uterus. She feels better from her recent hospitalizations in the last 2 months. Her ideal body weight for her height is 140 pounds for 5 feet 3.25 inches. Her highest weight was 362 pounds. Her highest body mass index was 63.8. She comes in 244 pounds from 253 pounds, 1 month ago. She has lost 9 pounds in 1 month. She has lost 118 pounds lifetime. Percent excess weight loss is 53 %. PHYSICAL EXAM: VITAL SIGNS: Height 5 foot 3.25 inches, weight 244 pounds. BMI 43.1 Vital Signs Temp 97.2 F L 05/21/19 16:09 Pulse 90 05/21/19 16:09 Resp BP 176/89 05/21/19 16:09 Pulse Ox GENERAL: Well-developed female in no acute distress. HEENT: No scleral icterus. Extraocular movements grossly intact. Hears conversational speech. No nasal drainage. NECK: Supple without lymphadenopathy. Well-healed collar incision from previous thyroidectomy. CHEST: Nonlabored respirations with equal bilateral excursions. CARDIOVASCULAR: Regular rate and rhythm. Distal 2+ pulses. ABDOMEN: Soft, nontender. Nondistended. No hernias. MUSCULOSKELETAL: No clubbing, cyanosis. NEURO: No focal or lateralizing signs. Cranial nerves 2 through 12 grossly within normal limits. PSYCH: Appropriate affect. Alert and oriented to person, place and time. SKIN: Good skin turgor. Well perfused. ASSESSMENT: 1. Morbid obesity due to excess calories. 2. Body mass index 63.4 down to 44.3 3. Status post gastric bypass 4. Dysphagia 5. Atypical chest pain 6. History of gastrointestinal bleeding 7. Diverticulosis 8. Peritoneal adhesions 9. Gastrointestinal hemorrhage PLAN: 1. Recommend bariatric labs 2. Recommend increased thyroid supplement until she sees Dr. Luna 3. Continue omeprazole
[2019-05-21 16:11] VITALS: BP 176/89; PULSE 90; TEMP 97.2; BMI 43.0
== END | disposition home or self-care (01) ==
LOC: BARWHC3 15:13
PROVIDERS: ATTEND Surgery Plastic and Reconstructive Surgery
DX: E66.01 Morbid (severe) obesity due to excess calories (principal); Z68.41 Body mass index [BMI] 40.0-44.9, adult; R13.10 Dysphagia, unspecified; R07.89 Other chest pain; Z87.19 Personal history of other diseases of the digestive system; K66.0 Peritoneal adhesions (postprocedural) (postinfection); K92.2 Gastrointestinal hemorrhage, unspecified; Z98.84 Bariatric surgery status
CPT/HCPCS: 99211

== ENCOUNTER → 2019-05-26 | Outpatient (CLI) | payer OTHER ==
--- NOTE | 2019-05-27 06:56 | US ---
EXAMINATION TYPE: US pelvic complete DATE OF EXAM: 05/26/2019 COMPARISON: NONE CLINICAL HISTORY: N95.0 Postmenopausal bleeding. Postmenopausal bleeding. TECHNIQUE: Transvaginal (TV). EXAM MEASUREMENTS: Uterus: 7.5 x 3.8 x cm Endometrial Stripe: .5 cm 1. Uterus: Anteverted wnl 2. Endometrium: wnl 3. Right Ovary: Obscured by overlying bowel gas 4. Left Ovary: Obscured by overlying bowel gas 5. Bilateral Adnexa: wnl 6. Posterior cul-de-sac: wnl IMPRESSION: Nonvisualization of the ovaries, either due to atrophy or obscuration by bowel gas. Endom etrial thickness is upper limits of normal for a postmenopausal female. In the setting of postmenopau karyn bleeding direct visualization would be recommended.
== END | disposition home or self-care (01) ==
LOC: RADUSWWP 16:03
PROVIDERS: ATTEND Obstetrics & Gynecology
DX: N95.0 Postmenopausal bleeding (principal)
CPT/HCPCS: 76830

== ENCOUNTER → 2019-06-06 | Outpatient (CLI) | payer OTHER ==
[2019-06-06 11:54] LABS: Basophils # (A) 0.1 k/uL (0-0.2); Basophils % (A) 1 %; Eosinophils # (A) 0.2 k/uL (0-0.7); Eosinophils % (A) 3 %; HGB 15.1 gm/dL (11.4-16.0); Lymphocytes # (A) 1.4 k/uL (1.0-4.8); Lymphocytes % (A) 21 %; MCH 28.9 pg (25.0-35.0); MCHC 32.1 g/dL (31.0-37.0); Mean Platelet Volume 8.6; Monocytes # (A) 0.4 k/uL (0-1.0); Monocytes % (A) 5 %; Neutrophils # (A) 4.7 k/uL (1.3-7.7); Neutrophils % (A) 68 %; Platelet Count 177 k/uL (150-450); RBC 5.22 m/uL (3.80-5.40); RDW 15.2 % (11.5-15.5); WBC 6.9 k/uL (3.8-10.6)
== END | disposition home or self-care (01) ==
LOC: LABPAT 10:55
PROVIDERS: ATTEND Obstetrics & Gynecology
DX: Z01.812 Encounter for preprocedural laboratory examination (principal)
CPT/HCPCS: 36415; 85025

== ENCOUNTER 2019-06-20 06:05 | Day surgery (SDC) | payer OTHER ==
--- NOTE | 2019-06-19 15:09 | P.HPOB ---
History of Present Illness H&P Date: 06/19/19 Chief Complaint: Postmenopausal bleeding This is a 64-year-old female 4 para 4 who presents for dilation and curettage with hysteroscopy secondary to postmenopausal bleeding. The bleeding started on 05/19/2019 and initially was spotting that lasted intermittently for approximately 1 week. She also has noticed a few small clots. She has had no bleeding prior to this in at least a year and a half. Her ultrasound showed a uterus measuring 7.5 x 3.8 cm with an endometrial stripe thickness of 0.5 cm. Neither ovary was well visualized. She denied feeling any cramping or pain. Obstetrical history: . History of 4 vaginal deliveries. Gynecologic history: No history of sexual transmitted diseases. Onset of menses was at age 14 and menopause at age 54. Review of Systems Constitutional: Denies chills, Denies fever Eyes: denies blurred vision, denies pain Ears, nose, mouth and throat: Denies headache, Denies sore throat Cardiovascular: Denies chest pain, Denies shortness of breath Respiratory: Denies cough Gastrointestinal: Reports heartburn, Denies abdominal pain, Denies diarrhea, De nies nausea, Denies vomiting Genitourinary: Reports abnormal vaginal bleeding, Reports pelvic pain Musculoskeletal: Reports myalgias Integumentary: Denies pruritus, Denies rash Neurological: Denies numbness, Denies weakness Psychiatric: Reports anxiety, Reports insomnia Past Medical History Past Medical History: Diabetes Mellitus, GERD/Reflux, GI Bleed, Hyperlipidemia, Hypertension, Renal Disease, Thyroid Disorder Additional Past Medical History / Comment(s): Hiatal hernia, diverticulitis with lower GI bleed, gastric stricture/dysphagia with dilation, gastric benign polyp, NIDDM type II-no longer on meds since wt loss, R nephrectomy r/t congenital defect, benign thyroid nodules-thyroidectomy, GI bleed in "old stomach" (pt has gastric bypass, the GI bleed was suspected in the stomach that is not used. (January 2019) History of Any Multi-Drug Resistant Organisms: None Reported Past Surgical History: Adenoidectomy, Bariatric Surgery, Breast Surgery, Cholecystectomy, Tonsillectomy, Tubal Ligation Additional Past Surgical History / Comment(s): R nephrectomy/ureterectomy, thyroidectomy, immanuel en Y gastric bypass, EGD with dilation, colonoscopy, hysteroscopy D&C, R breast benign biopsy; 12/2017 Immanuel-en-Y with Dr. Murray Past Anesthesia/Blood Transfusion Reactions: No Reported Reaction Past Psychological History: Depression Additional Psychological History / Comment(s): Pt resides with her spouse, her brother and their adult daughter. She is independendt. Smoking Status: Former smoker Past Alcohol Use History: None Reported Additional Past Alcohol Use History / Comment(s): Pt was a light smoker from 1973 until 1984-3 cigarettes a day. Past Drug Use History: None Reported - Past Family History Father Family Medical History: Cancer Additional Family Medical History / Comment(s): LUNG Mother Family Medical History: Cancer Additional Family Medical History / Comment(s): BREAST Sister(s) Family Medical History: Cancer Additional Family Medical History / Comment(s): 2 SISTER HAD BREAST CANCER Brother(s) Family Medical History: Myocardial Infarction (IA) Additional Family Medical History / Comment(s): Brother is living. He had a IA at the age of 50yrs. Medications and Allergies Home Medications Medication Instructions Recorded Confirmed Type Levothyroxine Sodium [Synthroid] 200 mcg PO QAM 05/04/17 05/21/19 History buPROPion XL [Wellbutrin XL] 150 mg PO QAM 07/29/18 05/21/19 History amLODIPine [Norvasc] 10 mg PO DAILY 02/25/19 05/21/19 History Atorvastatin [Lipitor] 20 mg PO DAILY 02/28/19 05/21/19 History Pantoprazole [Protonix] 40 mg PO BID #60 tab 03/06/19 05/21/19 Rx Magnesium Oxide [Magox 400] 400 mg PO DAILY #60 tablet 04/23/19 05/21/19 Rx Polyethylene Glycol 3350 [Miralax] 17 gm PO DAILY #60 packet 04/23/19 05/21/19 Rx Levothyroxine Sodium [Synthroid] 25 mcg PO DAILY #30 tab 05/21/19 Rx Omeprazole [PriLOSEC] 40 mg PO DAILY #90 cap 05/21/19 Rx Allergies Allergy/AdvReac Type Severity Reaction Status Date / Time prednisone Allergy Rash/Hives Verified 05/21/19 16:05 Exam Osteopathic Statement: *. No significant issues noted on an osteopathic structural exam other than those noted in the History and Physical/Consult. HEENT: Within normal limits Heart: Regular rate and rhythm Lungs: Clear to auscultation bilaterally Abdomen: Soft, nontender Pelvic exam: Uterus is small, anteverted, nontender, with no adnexal masses or tenderness palpated. No active bleeding is noted. Extremities: Negative Homans. Assessment and Plan (1) Postmenopausal bleeding Status: Acute Code(s): N95.0 - POSTMENOPAUSAL BLEEDING SNOMED Code(s): 86737128 Plan: Proceed with dilation and curettage with hysteroscopy. I have discussed the risks, benefits, and alternative therapies for the above- mentioned procedure and for both sedation/anesthesia as well as necessary blood products administration, if indicated, as they pertain to this patient. The patient has indicated her understanding and acceptance of the risks and procedures discussed.
[~2019-06-20 06:05] MED LIST changes: -FERUMOXYTOL 510 MG in SODIUM CHLORIDE 0.9% 50 ML IVPB ONE; +HYDROmorphone 0.5 MG/0.5 ML SYRINGE IVP PRN; +LIDOCAINE 1% (10MG/ML) FOR IV START INTRADERMA PRN; +MIDAZOLAM 2 MG/2 ML VIAL IV PRN; +ONDANSETRON 4 MG/2 ML VIAL IVP ONE; +Pre Op ABX Message 1 EACH MISC MISCELLANE ONE; -SODIUM CHLORIDE 0.9% 500 ML 500 ML in EMPTY BAG 1 BAG IV PRN; +fentaNYL (PF) 50 MCG/ML 2 ML AMP IVP PRN
[2019-06-20] MEDS ORDERED: SCOPOLAMINE 1.5MG/72HR PATCH TRANSDERM ONE (06:35)
[2019-06-20] MEDS: LACTATED RINGERS 1,000 ML IV SCH ×2 (06:35→08:46)
[2019-06-20 07:00] LABS: Glucose,Whole Blood 153 mg/dL (75-99)
[2019-06-20] MEDS ORDERED: LIDOCAINE 1% INJ 10MG/ML (20 ML MDV) ONE (07:27)
[2019-06-20] MEDS ORDERED: fentaNYL (PF) 50 MCG/ML 2 ML AMP ONE (07:27)
[2019-06-20] MEDS ORDERED: MIDAZOLAM 2 MG/2 ML VIAL ONE (07:27)
[2019-06-20] MEDS ORDERED: PROPOFOL 10 MG/ML 20 ML VIAL IV ONE (07:27)
[2019-06-20] MEDS ORDERED: SUCCINYLCHOLINE CHLORIDE 100 MG/5 ML SYR IV ONE (07:27)
--- NOTE | 2019-06-20 08:05 | P.OP ---
Date of Procedure: 06/20/19 Preoperative Diagnosis: Postmenopausal bleeding Postoperative Diagnosis: Same Procedure(s) Performed: Dilation and curettage with hysteroscopy Anesthesia: spinal (Duramorph) Surgeon: Wen Lanza Estimated Blood Loss (ml): 3 Pathology: other (Endometrial curetting) Condition: stable Disposition: same day Indications for Procedure: This is a 64-year-old female 4 para 4 who presents for dilation and curettage with hysteroscopy secondary to postmenopausal bleeding. The bleeding started on 05/19/2019 and initially was spotting that lasted intermittently for approximately 1 week. She also has noticed a few small clots. She has had no bleeding prior to this in at least a year and a half. Her ultrasound showed a uterus measuring 7.5 x 3.8 cm with an endometrial stripe thickness of 0.5 cm. Neither ovary was well visualized. She denied feeling any cramping or pain. Operative Findings: Uterus is anteverted, with no adnexal masses noted. Uterus is sounded to 8 cm. Upon hysteroscopy, a relatively atrophic appearance was noted. There was a questionable small polyp on the anterior endometrial wall. Minimal endometrial curettings are noted. Description of Procedure: The patient is taken to the operating room where she is placed in the dorsal lithotomy position. She is prepped and draped in the normal sterile fashion. Her bladder is drained with a catheter. Examination is done under anesthesia. Uterus is found to be small, anteverted, with no adnexal masses palpated. Next a weighted speculum was placed in the patient's vagina and a right angle retractor was used to visualize the anterior lip of the cervix. The anterior lip of the cervix is grasped with a single-tooth tenaculum. Uterus is sounded to 8 cm. Cervix is gently dilated with Maharaj dilators until a hysteroscope could be passed. Hysteroscopy is performed using normal saline. The above noted findings are made and pictures are taken. Hysteroscope was withdrawn. A polyp forcep was introduced with a minimal amount of polypoid type tissue obtained. Next a small uterine curet was introduced and uterine curettage was carried out. Minimal further tissue was obtained. All instruments are removed from the vagina. Patient is taken to recovery room in stable condition. Minimal blood loss is noted.
[2019-06-20 08:16] VITALS: TEMP 97.1
[2019-06-20 08:23] VITALS: RESP 16
[2019-06-20 08:29] LABS: Glucose,Whole Blood 155 mg/dL (75-99)
[2019-06-20 09:23] VITALS: BP 146/88; PULSE 75
== END 2019-06-20 09:29 | disposition home or self-care (01) ==
LOC: OR 06:05
PROVIDERS: ATTEND Obstetrics & Gynecology
DX: N85.00 Endometrial hyperplasia, unspecified (principal); N95.0 Postmenopausal bleeding; N85.4 Malposition of uterus; I10 Essential (primary) hypertension; E11.9 Type 2 diabetes mellitus without complications; K21.9 Gastro-esophageal reflux disease without esophagitis; E78.5 Hyperlipidemia, unspecified; E89.0 Postprocedural hypothyroidism; F32.9 Major depressive disorder, single episode, unspecified; Z79.890 Hormone replacement therapy; Z79.899 Other long term (current) drug therapy; Z98.51 Tubal ligation status; Z88.8 Allergy status to other drugs, medicaments and biological substances; Z90.49 Acquired absence of other specified parts of digestive tract; Z87.19 Personal history of other diseases of the digestive system; Z90.5 Acquired absence of kidney; Z98.84 Bariatric surgery status; Z90.89 Acquired absence of other organs; Z98.890 Other specified postprocedural states; Z87.891 Personal history of nicotine dependence; Z80.1 Family history of malignant neoplasm of trachea, bronchus and lung; Z80.3 Family history of malignant neoplasm of breast; Z82.49 Family history of ischemic heart disease and other diseases of the circulatory system
CPT/HCPCS: 58558; 88305; J2250; J2405; J2001; J3010; J0330; J2704; J1170

== ENCOUNTER → 2019-09-01 | Outpatient (CLI) | payer OTHER ==
[2019-09-01 10:10] LABS: Basophils % (A) 1 %; Eosinophils # (A) 0.2 k/uL (0-0.7); Eosinophils % (A) 3 %; HCT 49.2 % (34.0-46.0); HGB 15.3 gm/dL (11.4-16.0); Lymphocytes # (A) 1.4 k/uL (1.0-4.8); Lymphocytes % (A) 19 %; MCH 29.4 pg (25.0-35.0); MCV 94.6 fL (80.0-100.0); Mean Platelet Volume 8.7; Monocytes # (A) 0.4 k/uL (0-1.0); Monocytes % (A) 5 %; Neutrophils # (A) 5.1 k/uL (1.3-7.7); Neutrophils % (A) 71 %; Platelet Count 174 k/uL (150-450); RDW 14.6 % (11.5-15.5); WBC 7.2 k/uL (3.8-10.6)
[2019-09-01 10:25] LABS: African American GFR (CKD) >90 (>60 ml/min/1.73 sqM); Anion Gap 9 mmol/L; Blood Urea Nitrogen 22 mg/dL (7-17); Calcium 8.5 mg/dL (8.4-10.2); Carbon Dioxide 25 mmol/L (22-30); Chloride 108 mmol/L (98-107); Glucose 152 mg/dL (74-99); Non-African American GFR(CKD) 80 (>60 ml/min/1.73 sqM); Potassium 4.7 mmol/L (3.5-5.1); Sodium 142 mmol/L (137-145)
== END | disposition home or self-care (01) ==
LOC: LABPAT 08:29
PROVIDERS: ATTEND Obstetrics & Gynecology
DX: Z01.818 Encounter for other preprocedural examination (principal)
CPT/HCPCS: 36415; 80048; 85025

== ENCOUNTER → 2019-09-05 | Outpatient (CLI) | payer OTHER | END | disposition home or self-care (01) | LOC: LABWHC1 09:45 | PROVIDERS: ATTEND Obstetrics & Gynecology | DX: Z11.59 Encounter for screening for other viral diseases (principal) ==

== ENCOUNTER 2019-09-08 06:01 | Inpatient (IN) | payer OTHER ==
[2019-09-04 16:11] VITALS: BMI 42.5
--- NOTE | 2019-09-07 14:57 | P.HPOB ---
History of Present Illness H&P Date: 09/07/19 Chief Complaint: Endometrial hyperplasia, postmenopausal bleeding This is a 64 y.o. female, 4, para 4, who presents for total abdominal hysterectomy with bilateral salpingooophorectomy due to endometrial hyperplasia without atypia and postmenopausal bleeding. She recentlyl underwent a dilatation and curettage due to postmenopausal bleeding and pathology came back showing polypoid endometrium with non-atypical hyperplasia. She has elected to proceed with complete hysterectomy due to the hyperplasia and her postmenopausal bleeding. OB Hx: . Hx of 4 vaginal deliveries Brass Chaser Hx: Onset of menses age 14, menopause at age 54. History of tubal ligation. No history of STDs. Social Hx: . Works as a corporate secretary. Review of Systems Constitutional: Denies chills, Denies fever Eyes: denies blurred vision, denies pain Ears, nose, mouth and throat: Denies headache, Denies sore throat Cardiovascular: Denies chest pain, Denies shortness of breath Gastrointestinal: Reports heartburn, Denies abdominal pain Genitourinary: Reports abnormal vaginal bleeding, Reports pelvic pain Musculoskeletal: Reports myalgias Integumentary: Denies pruritus, Denies rash Neurological: Denies numbness, Denies weakness Psychiatric: Reports anxiety, Reports insomnia Endocrine: Denies fatigue, Denies weight change Past Medical History Past Medical History: Diabetes Mellitus, GERD/Reflux, GI Bleed, Hyperlipidemia, Hypertension, Renal Disease, Thyroid Disorder Additional Past Medical History / Comment(s): Hiatal hernia, diverticulitis w/ lower GI bleed, gastric stricture/dysphagia w/ dilation, gastric benign polyp, NIDDM type II-no longer on meds since wt loss, R nephrectomy r/t congenital defect, benign thyroid nodules-thyroidectomy, GI bleed in "old stomach" (hx gastric bypass, GI bleed R/T stomach that is not used. (January 2019) History of Any Multi-Drug Resistant Organisms: None Reported Past Surgical History: Adenoidectomy, Bariatric Surgery, Breast Surgery, Cholecystectomy, Tonsillectomy, Tubal Ligation Additional Past Surgical History / Comment(s): R nephrectomy/ureterectomy, thyroidectomy, Immanuel en Y gastric bypass 12/2017, EGD with dilation, colonoscopy, hysteroscopy D&C x2, last 06/20/19; Rt breast benign biopsy; 12/2017 Immanuel-en-Y with Dr. Murray Past Anesthesia/Blood Transfusion Reactions: Previous Problems w/ Anesthesia Additional Past Anesthesia/Blood Transfusion Reaction / Comment(s): Hard time awakening from anesthesia Past Psychological History: Anxiety Smoking Status: Former smoker Past Alcohol Use History: None Reported Past Drug Use History: None Reported - Past Family History Father Family Medical History: Cancer Additional Family Medical History / Comment(s): LUNG Mother Family Medical History: Cancer Additional Family Medical History / Comment(s): BREAST Sister(s) Family Medical History: Cancer Additional Family Medical History / Comment(s): 2 SISTER HAD BREAST CANCER Brother(s) Family Medical History: Myocardial Infarction (ND) Additional Family Medical History / Comment(s): Brother is living. He had a ND at the age of 50yrs. Medications and Allergies Home Medications Medication Instructions Recorded Confirmed Type Levothyroxine Sodium [Synthroid] 200 mcg PO QAM 05/04/17 09/04/19 History buPROPion XL [Wellbutrin XL] 300 mg PO QAM 07/29/18 09/04/19 History amLODIPine [Norvasc] 10 mg PO DAILY 02/25/19 09/04/19 History Atorvastatin [Lipitor] 5 mg PO DAILY 02/28/19 09/04/19 History Levothyroxine Sodium [Synthroid] 25 mcg PO DAILY #30 tab 05/21/19 09/04/19 Rx Pantoprazole [Protonix] 40 mg PO DAILY 06/19/19 09/04/19 History Polyethylene Glycol 3350 [Miralax] 17 gm PO Q7DAYS PRN 06/19/19 09/04/19 History Allergies Allergy/AdvReac Type Severity Reaction Status Date / Time prednisone Allergy Rash/Hives Verified 09/08/19 06:17 Exam Osteopathic Statement: *. No significant issues noted on an osteopathic structural exam other than those noted in the History and Physical/Consult. HEENT: within normal limits Heart: regular rate and rhythm Lungs: clear to auscultation bilaterally Abdomen: soft, non-tender Pelvic: uterus small, anteverted, non-tender with no adnexal masses or tenderness Extremities: neg. Diamante's Assessment and Plan (1) Endometrial hyperplasia without atypia Current Visit: No Status: Acute Code(s): N85.00 - ENDOMETRIAL HYPERPLASIA, UNSPECIFIED SNOMED Code(s): 752971214 (2) Postmenopausal bleeding Current Visit: No Status: Acute Code(s): N95.0 - POSTMENOPAUSAL BLEEDING SNOMED Code(s): 70810746 Plan: Proceed with total abdominal hysterectomy with bilateral salpingooophorectomy. I have discussed the risks, benefits, and alternative therapies for the above- mentioned procedure and for both sedation/anesthesia as well as necessary blood products administration, if indicated, as they pertain to this patient. The patient has indicated her understanding and acceptance of the risks and procedures discussed.
[~2019-09-08 06:01] MED LIST changes: -HYDROmorphone 0.5 MG/0.5 ML SYRINGE IVP PRN; -MIDAZOLAM 2 MG/2 ML VIAL IV PRN; -Pre Op ABX Message 1 EACH MISC MISCELLANE ONE; +SCOPOLAMINE 1.5MG/72HR PATCH TRANSDERM ONE; -fentaNYL (PF) 50 MCG/ML 2 ML AMP IVP PRN
[2019-09-08 06:31] LABS: Glucose,Whole Blood 134 mg/dL (75-99)
[2019-09-08] MEDS: LACTATED RINGERS 1,000 ML IV SCH ×2 (06:31→12:04)
[2019-09-08] MEDS ORDERED: fentaNYL (PF) 50 MCG/ML 2 ML AMP IV ONE (06:51)
[2019-09-08] MEDS ORDERED: MIDAZOLAM 2 MG/2 ML VIAL IV ONE (06:51)
[2019-09-08] MEDS ORDERED: ROCURONIUM BROMIDE 10 MG/ML 5 ML VIAL IV ONE (07:23)
[2019-09-08] MEDS ORDERED: NEOSTIGMINE 1 MG/ML 10 ML VIAL ONE (07:23)
[2019-09-08] MEDS ORDERED: LIDOCAINE 1% INJ 10MG/ML (20 ML MDV) ONE (07:23)
[2019-09-08] MEDS ORDERED: MIDAZOLAM 2 MG/2 ML VIAL ONE (07:23)
[2019-09-08] MEDS ORDERED: HYDROmorphone (PF) 1 MG/ML ONE (07:23)
[2019-09-08] MEDS ORDERED: GLYCOPYRROLATE 0.2 MG/ML 2 ML VIAL ONE (07:23)
[2019-09-08] MEDS ORDERED: PROPOFOL 10 MG/ML 20 ML VIAL IV ONE (07:23)
[2019-09-08] MEDS ORDERED: fentaNYL (PF) 50 MCG/ML 2 ML AMP ONE (07:23)
[2019-09-08] MEDS ORDERED: SUCCINYLCHOLINE CHLORIDE 100 MG/5 ML SYR IV ONE (07:23)
[2019-09-08] MEDS ORDERED: LACTATED RINGERS 1,000 ML IV ONE (08:09)
[2019-09-08] MEDS ORDERED: NALOXONE 0.4 MG/ML 1 ML VIAL IV PRN (08:30)
[2019-09-08] MEDS ORDERED: MORPHINE SULFATE 2 MG/ML SYRINGE IVP PRN (08:30)
--- NOTE | 2019-09-08 08:39 | P.OP ---
Date of Procedure: 09/08/19 Preoperative Diagnosis: Endometrial hyperplasia Post menopausal bleeding Postoperative Diagnosis: Same Procedure(s) Performed: Total abdominal hysterectomy with bilateral salpingo-oophorectomy Anesthesia: GETA, spinal (Duramorph) Surgeon: Wen Lanza Interior Wall Assembler #1: Gage Lee Estimated Blood Loss (ml): 25 Pathology: other (Uterus with cervix and bilateral tubes and ovaries) Condition: stable Disposition: floor Indications for Procedure: This is a 64 y.o. female, 4, para 4, who presents for total abdominal hysterectomy with bilateral salpingooophorectomy due to endometrial hyperplasia without atypia and postmenopausal bleeding. She recentlyl underwent a dilatation and curettage due to postmenopausal bleeding and pathology came back showing polypoid endometrium with non-atypical hyperplasia. She has elected to proceed with complete hysterectomy due to the hyperplasia and her postmenopausal bleeding. Operative Findings: Uterus is small with normal tubes and ovaries noted. There is an incidental hernia in the right lower quadrant through the muscle layer but not through the fascia. Description of Procedure: The patient is taken to the operating room where she is placed in the dorsal supine position. She is prepped and draped in the normal sterile fashion including Lanier catheter insertion and vaginal prep. A Pfannenstiel skin incision is made with a scalpel. A second knife was used to carry the incision down to the underlying layer of fascia. The fascia was nicked in the midline with a scalpel and then extended laterally bilaterally with Langley scissors. The fascia on the right did appear to be distorted and only the top layer of fascia was able to be cut. There was what appeared to be a hernia going through the bottom layer of fascia on the right side. The superior aspect of the fascial incision was grasped with Jay clamps, elevated off the underlying rectus muscle in the midline and then cut with Langley scissors. The inferior aspect of the fascial incision was grasped with Jay clamps, elevated off the underlying rectus muscle in the midline and then cut with Langley scissors. Next the peritoneum was identified and entered sharply with Langley scissors. It is extended superiorly and in fairly with Metzenbaum scissors with good visualization of underlying structures. Next the Butler retractor is placed in the bladder blade was inserted. The bowels were packed with a 3 yard laparotomy sponge. Next the uterus is brought up incision and the corneal regions are grasped with Brittani clamps on both sides. The infundibulopelvic ligament was cla mped on either side with a Mario Alberto clamp, cut with Langley scissors, and sutured with 0 Vicryl suture in Mario Alberto transfixion stitches. The remaining uterine ovarian ligament and round ligament was clamped on either side with a Mario Alberto clamp, cut with Langley scissors, and sutured with 0 Vicryl suture in Mario Alberto transfixion stitches. The vesicouterine peritoneum was sharply dissected away from the bladder with Metzenbaum scissors and pushed inferiorly. The uterine arteries are clamped on either side with a Mario Alberto clamp. The uterine arteries are then cut with Langley scissors, and sutured with 0 Vicryl suture in Mario Alberto transfixion stitches. Next the cardinal ligaments were clamped on either side with Mario Alberto clamp, cut with Langley scissors, and sutured with 0 Vicryl suture in Mario Alberto transfixion stitches. The uterosacral ligaments are clamped on either side with Mario Alberto clamps, cut with Langley scissors, and sutured with 0 Vicryl suture in Mario Alberto transfixion stitches on either side. The edges of the vaginal cuff were clamped on either side with a Mario Alberto clamp, cut with Langley scissors, and sutured with 0 Vicryl suture in Mario Alberto transfixion stitches and held on either side. The vaginal mucosa was then cut just below the level of the cervix and the specimen is removed from the field. The edges of the vaginal cuff were held with Jay clamps. Next the previously held corners of each side of the vaginal cuff were then whipstitched along the connective tissue on either side and brought through the corner of the cuff and tied. Next the vaginal cuff was sutured with 0 Vicryl suture in a running locked fashion. Good hemostasis was noted. Copious irrigation is carried out with warm saline. Excellent hemostasis is noted. All sponges are removed from the abdomen and sponge counts are correct. The peritoneum is then closed with 0 Vicryl suture in a running fashion. The muscle layer was unable to be brought back together due to separation and hernia on the right side. The fascia layer is then closed with 0 PDS suture in a running fashion with the knots buried on either side and in the midline. Next the subcutaneous tissues closed with 2-0 Vicryl suture in a running fashion. The skin is closed with donny. All sponge and needle counts are correct and the patient is taken to recovery room in stable condition.
[2019-09-08] MEDS: HYDROmorphone 0.5 MG/0.5 ML SYRINGE IVP PRN ×2 (09:00→09:14)
[2019-09-08] MEDS ORDERED: SIMETHICONE 80 MG CHEWABLE PO PRN (09:15)
[2019-09-08] MEDS ORDERED: diphenhydrAMINE 50 MG/ML 1 ML VIAL IVP PRN (09:15)
[2019-09-08] MEDS ORDERED: HYDROcodone/APAP 7.5-325MG 1 EACH TAB PO PRN (09:15)
[2019-09-08] MEDS ORDERED: METOCLOPRAMIDE 5 MG/ML 2 ML VIAL IVP PRN (09:15)
[2019-09-08] MEDS ORDERED: HYDROcodone/APAP 5-325MG 1 EACH TAB PO PRN (09:15)
[2019-09-08] MEDS ORDERED: POLYETHYLENE GLYCOL 3350 17 GM POWD.PACK PO PRN (09:15)
[2019-09-08] MEDS ORDERED: ZOLPIDEM 5 MG TAB PO PRN (09:15)
[2019-09-08] MEDS ORDERED: ONDANSETRON 4 MG/2 ML VIAL IVP PRN (09:15)
[2019-09-08] MEDS ORDERED: IBUPROFEN 600 MG TAB PO PRN (09:15)
[2019-09-08] MEDS: KETOROLAC 30 MG/ML 1 ML VIAL IVP PRN ×3 (09:25→23:03)
[2019-09-08] MEDS: SENNOSIDES-DOCUSATE SODIUM 1 EACH TAB PO SCH (09:54)
[2019-09-08] MEDS: PANTOPRAZOLE 40 MG TABLET PO SCH (10:19)
[2019-09-08] MEDS: ATORVASTATIN 10 MG TAB PO SCH (10:19)
[2019-09-08] MEDS: buPROPion XL 300 MG TAB.ER.24H PO SCH (10:19)
[2019-09-08] MEDS: LEVOTHYROXINE 100 MCG TAB PO SCH (10:19)
[2019-09-08] MEDS: amLODIPine 10 MG TAB PO SCH (10:19)
[2019-09-08] MEDS: LEVOTHYROXINE 25 MCG TAB PO SCH (10:19)
[2019-09-08] MEDS: diphenhydrAMINE 50 MG/ML 1 ML VIAL IVP PRN ×3 (12:04→23:01)
[2019-09-09] MEDS: SENNOSIDES-DOCUSATE SODIUM 1 EACH TAB PO SCH ×3 (04:29→19:57)
[2019-09-09] MEDS: diphenhydrAMINE 50 MG/ML 1 ML VIAL IVP PRN (04:38)
[2019-09-09 05:58] LABS: Basophils % (A) 0 %; Eosinophils # (A) 0.1 k/uL (0-0.7); Eosinophils % (A) 2 %; HCT 40.8 % (34.0-46.0); HGB 12.7 gm/dL (11.4-16.0); Lymphocytes # (A) 1.3 k/uL (1.0-4.8); Lymphocytes % (A) 14 %; MCH 29.4 pg (25.0-35.0); MCHC 31.1 g/dL (31.0-37.0); MCV 94.7 fL (80.0-100.0); Mean Platelet Volume 8.7; Monocytes # (A) 0.6 k/uL (0-1.0); Monocytes % (A) 7 %; Neutrophils # (A) 6.6 k/uL (1.3-7.7); Neutrophils % (A) 75 %; Platelet Count 134 k/uL (150-450); RDW 14.3 % (11.5-15.5); WBC 8.8 k/uL (3.8-10.6)
[2019-09-09] MEDS: LEVOTHYROXINE 100 MCG TAB PO SCH (06:27)
[2019-09-09] MEDS: LEVOTHYROXINE 25 MCG TAB PO SCH (06:27)
[2019-09-09] MEDS: PANTOPRAZOLE 40 MG TABLET PO SCH (07:19)
[2019-09-09] MEDS ORDERED: ACETAMINOPHEN TAB 325 MG TAB PO PRN (07:36)
[2019-09-09] MEDS: buPROPion XL 300 MG TAB.ER.24H PO SCH (08:54)
[2019-09-09] MEDS: ATORVASTATIN 10 MG TAB PO SCH (08:54)
[2019-09-09] MEDS: KETOROLAC 30 MG/ML 1 ML VIAL IVP PRN ×3 (08:54→22:38)
[2019-09-09] MEDS: amLODIPine 10 MG TAB PO SCH (08:55)
--- NOTE | 2019-09-09 10:22 | P.PN ---
Subjective Progress Note Date: 09/09/19 Principal diagnosis: Status post ODIN/BSO postoperative day #1 Patient is doing well. Her pain is fairly well controlled. Bleeding has been minimal. She is not passing flatus or bowel movement yet. She is burping. She has urinated. Objective - Vital Signs Vital signs: Vital Signs Temp 97.8 F 09/09/19 08:00 Pulse 98 09/09/19 08:00 Resp 16 09/09/19 09:00 BP 149/84 09/09/19 08:00 Pulse Ox 96 09/09/19 09:00 Intake & Output 09/08/19 09/09/19 09/09/19 18:59 06:59 18:59 Intake Total 1350 Output Total 1025 1450 Balance 325 -1450 Weight 113 kg Intake: IV 1350 Output: Urine 1000 1450 Uretheral (Lanier) 1300 Estimated Blood Loss 25 - Constitutional General appearance: Present: no acute distress - Gastrointestinal Gastrointestinal Comment(s): Incision is clean dry and intact with donny in place. General gastrointestinal: Present: normal bowel sounds, soft. Absent: tenderness - Neurologic Neurologic Comment(s): Negative Homans - Labs CBC & Chem 7: 09/09/19 05:13 Labs: Abnormal Lab Results - Last 24 Hours (Table) 09/09/19 Range/Units 05:13 Plt Count 134 L (150-450) k/uL Assessment and Plan Assessment: Status post ODIN/BSO postoperative day #1 (1) Endometrial hyperplasia without atypia Current Visit: No Status: Acute Code(s): N85.00 - ENDOMETRIAL HYPERPLASIA, UNSPECIFIED SNOMED Code(s): 135530071 (2) Postmenopausal bleeding Current Visit: No Status: Acute Code(s): N95.0 - POSTMENOPAUSAL BLEEDING SNOMED Code(s): 10250573 Plan: Patient is encouraged to ambulate. Will switch to oral pain medications later today. May shower.
[2019-09-09] MEDS: LACTATED RINGERS 1,000 ML IV SCH ×3 (15:25→17:20)
--- NOTE | 2019-09-10 07:30 | P.PN ---
Progress Note - Text Progress Note Date: 09/10/19 64 yo female s/p ODIN POD#2. Patient received intrathecal Duramorph. Patient was seen today, sitting up in bed no complaints, pain VAS score 0/10, no headache, no itching, no nausea and vomiting. Assessment and plan: Doing well in general no complications from anesthesia
[2019-09-10] MEDS: PANTOPRAZOLE 40 MG TABLET PO SCH (07:38)
[2019-09-10] MEDS: LEVOTHYROXINE 25 MCG TAB PO SCH (07:41)
--- NOTE | 2019-09-10 08:38 | P.DS ---
Providers Date of admission: 09/08/19 06:01 Expected date of discharge: 09/10/19 Attending physician: Wen Lanza Primary care physician: Stephy Harris - Discharge Diagnosis(es) (1) Endometrial hyperplasia without atypia Current Visit: No Status: Acute (2) Postmenopausal bleeding Current Visit: No Status: Acute Hospital Course: This is a 64-year-old female who underwent a total abdominal hysterectomy with bilateral salpingo-oophorectomy on 09/08/2019. Postoperatively, she has done well. She is passing flatus and bowel movement at this time. She is urinating without difficulty. She has no further bleeding. Pain is well-controlled with Toradol. She feels ready to go home at this time. Procedures: Total abdominal hysterectomy with bilateral salpingo-oophorectomy on 09/08/2019 Patient Condition at Discharge: Stable Plan - Discharge Summary Discharge Rx Participant: Yes New Discharge Prescriptions: New Ibuprofen [Motrin] 600 mg PO Q6HR PRN #60 tab PRN Reason: Mild Discomfort HYDROcodone/APAP 5-325MG [[place] 5-325] 1 each PO Q4HR PRN #18 tab PRN Reason: Moderate Pain Continue Levothyroxine Sodium [Synthroid] 200 mcg PO QAM buPROPion XL [Wellbutrin XL] 300 mg PO QAM amLODIPine [Norvasc] 10 mg PO DAILY Atorvastatin [Lipitor] 5 mg PO DAILY Levothyroxine Sodium [Synthroid] 25 mcg PO DAILY #30 tab Polyethylene Glycol 3350 [Miralax] 17 gm PO Q7DAYS PRN PRN Reason: Constipation Pantoprazole [Protonix] 40 mg PO DAILY Discharge Medication List Levothyroxine Sodium [Synthroid] 200 mcg PO QAM 05/04/17 [History] buPROPion XL [Wellbutrin XL] 300 mg PO QAM 07/29/18 [History] amLODIPine [Norvasc] 10 mg PO DAILY 02/25/19 [History] Atorvastatin [Lipitor] 5 mg PO DAILY 02/28/19 [History] Levothyroxine Sodium [Synthroid] 25 mcg PO DAILY #30 tab 05/21/19 [Rx] Pantoprazole [Protonix] 40 mg PO DAILY 06/19/19 [History] Polyethylene Glycol 3350 [Miralax] 17 gm PO Q7DAYS PRN 03/19/20 [History] HYDROcodone/APAP 5-325MG [[place] 5-325] 1 each PO Q4HR PRN #18 tab 09/10/19 [Rx] Ibuprofen [Motrin] 600 mg PO Q6HR PRN #60 tab 09/10/19 [Rx] Follow up Appointment(s)/Referral(s): Wen Lanza DO [Doctor of Osteopathic Medicine] - 1 Week Activity/Diet/Wound Care/Special Instructions: Activity as tolerated. Diet as tolerated. May shower, but no tub baths for 1 week. No intercourse for 6 weeks. No heavy lifting. Discharge Disposition: HOME SELF-CARE
[2019-09-10] MEDS: ATORVASTATIN 10 MG TAB PO SCH (08:47)
[2019-09-10] MEDS: amLODIPine 10 MG TAB PO SCH (08:47)
[2019-09-10] MEDS: buPROPion XL 300 MG TAB.ER.24H PO SCH (08:48)
[2019-09-10] MEDS: SENNOSIDES-DOCUSATE SODIUM 1 EACH TAB PO SCH (08:52)
[2019-09-10 10:19] VITALS: BP 126/72; PULSE 70; RESP 16; TEMP 98.5
--- NOTE | 2019-09-12 03:06 | CDI ---
Documentation Clarification Form Date: 09/12/2019 From: Rudi Alexander Phone: If you have a question about this query, please contact Kierra Langston, Radiation Protection Technician at [phone] between 8am and 5pm. Admit Date: 09/08/2019 Discharge Date: 09/10/2019 Patient Name: Laura Bishop Visit Number: [id number] ATTENTION: The Clinical Documentation Specialists (CDI) and [facility] Coding Staff appreciate your assistance in clarifying documentation. Please respond to the clarification below the line at the bottom and electronically sign. The CDI & [facility] Coding staff will review the response and follow-up if needed. Please note: Queries are made part of the Legal Health Record. If you have any questions, please contact the author of this message via ITS. Dear Wen Nascimento., Patient having BMI 42.8. History/Risk Factors: Endometrial hyperplasia, postmenopausal bleeding. Patients weight is 113kg Patients height is 5ft 4 Inc Calculated BMI is 42.8 Treatment: hx of Bariatric surgery In order to capture the severity of condition associated with patient BMI of 42.8, a clinical diagnosis needs to be documented by the physician. Please clarify: Overweight Obesity, Class 1 Obesity, Class 2 Extreme (Morbid) (severe) obesity Other, please specify ____ Unable to determine NIH Classification for BMI: Overweight BMI 2529.9 Obesity (Class 1) BMI 3034.9 Obesity (Class 2) BMI 3539.9 Extreme (Morbid) (severe) obesity BMI ?40 According to that classification, it appears she is Extreme (Morbid) (severe) obesity. TREYD
== END 2019-09-10 11:00 | disposition home or self-care (01) | DRG 742 ==
LOC: 2ORMAIN 06:01 → 4FBP 09:05
PROVIDERS: ADMIT Obstetrics & Gynecology; ATTEND Obstetrics & Gynecology
PROC: 0UT20ZZ Resection of Bilateral Ovaries, Open Approach (ICD-10-PCS; principal; 2019-09-08 07:30)
PROC: 0UT90ZZ Resection of Uterus, Open Approach (ICD-10-PCS; principal; 2019-09-08 07:30)
PROC: 0UT70ZZ Resection of Bilateral Fallopian Tubes, Open Approach (ICD-10-PCS; principal; 2019-09-08 07:30)
DX: N85.00 Endometrial hyperplasia, unspecified (principal); Z68.41 Body mass index [BMI] 40.0-44.9, adult; N95.0 Postmenopausal bleeding; I10 Essential (primary) hypertension; K21.9 Gastro-esophageal reflux disease without esophagitis; E78.5 Hyperlipidemia, unspecified; E11.9 Type 2 diabetes mellitus without complications; E89.0 Postprocedural hypothyroidism; F41.9 Anxiety disorder, unspecified; G47.00 Insomnia, unspecified; Z79.890 Hormone replacement therapy; Z79.899 Other long term (current) drug therapy; Z90.49 Acquired absence of other specified parts of digestive tract; Z90.89 Acquired absence of other organs; Z98.890 Other specified postprocedural states; Z98.51 Tubal ligation status; Z87.891 Personal history of nicotine dependence; Z82.49 Family history of ischemic heart disease and other diseases of the circulatory system; Z80.3 Family history of malignant neoplasm of breast; Z80.1 Family history of malignant neoplasm of trachea, bronchus and lung; Z88.8 Allergy status to other drugs, medicaments and biological substances; Z98.84 Bariatric surgery status; E66.01 Morbid (severe) obesity due to excess calories
CPT/HCPCS: 85025; 86850; 86900; 86901; 88307

== ENCOUNTER 2019-11-12 20:26 | Observation (INO) | payer OTHER ==
--- NOTE | 2019-11-12 21:27 | ED ---
GI Bleed HPI - General Chief complaint: GI Bleed Stated complaint: GI Bleed Time Seen by Provider: 11/12/19 20:36 Source: patient, EMS Mode of arrival: EMS Limitations: no limitations - History of Present Illness Initial comments: 64-year-old female patient presents to the emergency department today for evaluation of GI bleed. Patient states earlier today she is having some lower abdominal discomfort which had a bowel movement there is presence of bright red blood. Patient states that she has been feeling tired and run down today. Patient states that she has had history of GI bleed in the past. They believe it is related to diverticulitis. Patient denies any fever or chills. Denies nausea or vomiting. Denies use of anticoagulants or antiplatelet medications. Last colonoscopy was performed in January 2019 where she had a upper and lower GI endoscopy. She also had the pill camera test performed. States he is unable to find a source of bleeding so determined it could've been related to a diverticular bleed. Patient denies any recent rash, fever, chills, cough, shortness of breath, chest pain, back pain, numbness, tingling, dizziness, weakness, hematuria, dysuria, urinary urgency, urinary frequency, headache, visual changes, or any other complaints. - Related Data Home Medications Medication Instructions Recorded Confirmed Levothyroxine Sodium [Synthroid] 200 mcg PO QAM 05/04/17 09/04/19 buPROPion XL [Wellbutrin XL] 300 mg PO QAM 07/29/18 09/04/19 amLODIPine [Norvasc] 10 mg PO DAILY 02/25/19 09/04/19 Atorvastatin [Lipitor] 5 mg PO DAILY 02/28/19 09/04/19 Pantoprazole [Protonix] 40 mg PO DAILY 06/19/19 09/04/19 polyethylene glycoL 3350 [Miralax] 17 gm PO Q7DAYS PRN 06/19/19 09/04/19 Previous Rx's Medication Instructions Recorded Levothyroxine Sodium [Synthroid] 25 mcg PO DAILY #30 tab 05/21/19 HYDROcodone/APAP 5-325MG [[place] 1 each PO Q4HR PRN #18 tab 09/10/19 5-325] Ibuprofen [Motrin] 600 mg PO Q6HR PRN #60 tab 09/10/19 Allergies Allergy/AdvReac Type Severity Reaction Status Date / Time prednisone Allergy Rash/Hives Verified 09/08/19 06:17 Review of Systems ROS Statement: Those systems with pertinent positive or pertinent negative responses have been documented in the HPI. ROS Other: All systems not noted in ROS Statement are negative. Past Medical History Past Medical History: Diabetes Mellitus, GERD/Reflux, GI Bleed, Hyperlipidemia, Hypertension, Renal Disease, Thyroid Disorder Additional Past Medical History / Comment(s): Hiatal hernia, diverticulitis w/ lower GI bleed, gastric stricture/dysphagia w/ dilation, gastric benign polyp, NIDDM type II-no longer on meds since wt loss, R nephrectomy r/t congenital defect, benign thyroid nodules-thyroidectomy, GI bleed in "old stomach" (hx gastric bypass, GI bleed R/T stomach that is not used. (January 2019) History of Any Multi-Drug Resistant Organisms: None Reported Past Surgical History: Adenoidectomy, Bariatric Surgery, Breast Surgery, Cholecystectomy, Hysterectomy, Tonsillectomy, Tubal Ligation Additional Past Surgical History / Comment(s): R nephrectomy/ureterectomy, thyroidectomy, Immanuel en Y gastric bypass 12/2017, EGD with dilation, colonoscopy, hysteroscopy D&C x2, last 06/20/19; Rt breast benign biopsy; 12/2017 Immanuel-en-Y with Dr. Murray Full hysterectomy September2019 Past Anesthesia/Blood Transfusion Reactions: Previous Problems w/ Anesthesia Additional Past Anesthesia/Blood Transfusion Reaction / Comment(s): Hard time awakening from anesthesia Past Psychological History: Anxiety Smoking Status: Former smoker Past Alcohol Use History: None Reported Past Drug Use History: None Reported - Past Family History Father Family Medical History: Cancer Additional Family Medical History / Comment(s): LUNG Mother Family Medical History: Cancer Additional Family Medical History / Comment(s): BREAST Sister(s) Family Medical History: Cancer Additional Family Medical History / Comment(s): 2 SISTER HAD BREAST CANCER Brother(s) Family Medical History: Myocardial Infarction ([place]) Additional Family Medical History / Comment(s): Brother is living. He had a [place] at the age of 50yrs. General Exam Limitations: no limitations General appearance: alert, in no apparent distress, other (This is a well- developed, well-nourished adult female patient in no acute distress. Vital signs upon presentation are temperature 98.9F, pulse 72, respirations 18, blood pressure 140/86, pulse ox 97% on room air.) Eye exam: Present: normal appearance, PERRL, EOMI. Absent: scleral icterus, conjunctival injection, periorbital swelling ENT exam: Present: normal exam, normal oropharynx, mucous membranes moist Respiratory exam: Present: normal lung sounds bilaterally. Absent: respiratory distress, wheezes, rales, rhonchi, stridor Cardiovascular Exam: Present: regular rate, normal rhythm, normal heart sounds. Absent: systolic murmur, diastolic murmur, rubs, gallop, clicks GI/Abdominal exam: Present: soft, normal bowel sounds. Absent: distended, tenderness, guarding, rebound, rigid Neurological exam: Present: alert, oriented X3, CN II-XII intact Psychiatric exam: Present: normal affect, normal mood Skin exam: Present: warm, dry, intact, normal color. Absent: rash Course Vital Signs 11/12/19 20:39 Temperature 98.9 F Pulse Rate 72 Respiratory 18 Rate Blood Pressure 140/86 O2 Sat by Pulse 97 Oximetry Medical Decision Making - Medical Decision Making 64-year-old male patient presents to the emergency department today as a transfer from [facility] for GI bleed. Patient had one episode of bright red bleeding with her bowel movement this afternoon. Mild lower abdominal discomfort. Upon arrival patient is resting comfortably in bed. Vital signs within normal ranges. Abdomen is soft and nontender. Review of records from [facility] show normal hemoglobin of 14.5. Normal PT/INR, PTT. Patient does have history of GI bleed with diverticulitis, she'll be admitted to the hospital for evaluation by her surgeon Dr. Murray. Patient is agreeable to this plan. Disposition Clinical Impression: GI bleed Disposition: [facility] Condition: Serious Referrals: Stephy Harris MD [Primary Care Provider] - 1-2 days Decision to Admit Reason: Admit from EC Decision Date: 11/12/19 Decision Time: 21:45
[2019-11-12] MEDS ORDERED: NALOXONE 0.4 MG/ML 1 ML VIAL IV PRN (21:42)
[2019-11-12] MEDS ORDERED: ONDANSETRON 4 MG/2 ML VIAL IVP PRN (21:42)
[2019-11-12] MEDS: SODIUM CHLORIDE 0.9% 1,000 ML IV SCH (22:44)
[2019-11-13] MEDS ORDERED: ZINC GLUCONATE 50 MG PO SCH (00:15)
[2019-11-13] MEDS ORDERED: VITAMIN A 8000 UNIT PO SCH (00:15)
[2019-11-13] MEDS ORDERED: CYANOCOBALAMIN 500 MCG TAB PO SCH (00:15)
[2019-11-13] MEDS: PANTOPRAZOLE 40 MG TABLET PO SCH ×2 (00:29→08:51)
--- NOTE | 2019-11-13 00:32 | P.HPIM ---
History of Present Illness H&P Date: 11/12/19 Chief Complaint: Bright red blood per rectum 64-year-old female with hypertension and history of Immanuel-en-Y surgery Patient was at her baseline status of health however today she had one episode of bright red blood per rectum with some clots she grew concerned this was assoc iated with some epigastric abdominal discomfort otherwise she denies any shortness of breath or chest pain denies any fevers or chills denies taking any blood thinners denies taking any aspirin denies taking any NSAIDs. She denies any vomiting nausea. Denies any headache shortness of breath. She does report that she had history of GI bleeding back in January 2019 where her hemoglobin drops significantly 6 g and required couple units of blood transfusion she had an EGD colonoscopy and small intestine pole with camera no source of bleeding was identified at that time. Otherwise today she reports only one episode she went to the hospital and [facility] her hemoglobin was found to be 14.5 within normal limits she was transferred to our facility for further workup and testing Review of Systems Pertinent positives as noted in HPI. All other systems were reviewed and are negative Past Medical History Past Medical History: Diabetes Mellitus, GERD/Reflux, GI Bleed, Hyperlipidemia, Hypertension, Renal Disease, Thyroid Disorder Additional Past Medical History / Comment(s): Hiatal hernia, diverticulitis w/ lower GI bleed, gastric stricture/dysphagia w/ dilation, gastric benign polyp, NIDDM type II-no longer on meds since wt loss, R nephrectomy r/t congenital defect, benign thyroid nodules-thyroidectomy, GI bleed in "old stomach" (hx gastric bypass, GI bleed R/T stomach that is not used. (January 2019) History of Any Multi-Drug Resistant Organisms: None Reported Past Surgical History: Adenoidectomy, Bariatric Surgery, Breast Surgery, Cholecystectomy, Hysterectomy, Tonsillectomy, Tubal Ligation Additional Past Surgical History / Comment(s): R nephrectomy/ureterectomy, thyroidectomy, Immanuel en Y gastric bypass 12/2017, EGD with dilation, colonoscopy, hysteroscopy D&C x2, last 06/20/19; Rt breast benign biopsy; 12/2017 Immanuel-en-Y [address] Dr. Murray Full hysterectomy September2019 Past Anesthesia/Blood Transfusion Reactions: Previous Problems w/ Anesthesia Additional Past Anesthesia/Blood Transfusion Reaction / Comment(s): Hard time awakening from anesthesia Past Psychological History: Anxiety Additional Psychological History / Comment(s): Pt resides with her spouse, her brother and their adult daughter. She is independendt. Smoking Status: Former smoker Past Alcohol Use History: None Reported Additional Past Alcohol Use History / Comment(s): Pt was a light smoker from 1973 until 1984-3 cigarettes a day. Past Drug Use History: None Reported - Past Family History Father Family Medical History: Cancer Additional Family Medical History / Comment(s): LUNG Mother Family Medical History: Cancer Additional Family Medical History / Comment(s): BREAST Sister(s) Family Medical History: Cancer Additional Family Medical History / Comment(s): 2 SISTER HAD BREAST CANCER Brother(s) Family Medical History: Myocardial Infarction ([place]) Additional Family Medical History / Comment(s): Brother is living. He had a [place] at the age of 50yrs. Medications and Allergies Home Medications Medication Instructions Recorded Confirmed Type buPROPion XL [Wellbutrin XL] 300 mg PO DAILY 07/29/18 11/12/19 History amLODIPine [Norvasc] 10 mg PO DAILY 02/25/19 11/12/19 History Atorvastatin [Lipitor] 10 mg PO DAILY 02/28/19 11/12/19 History polyethylene glycoL 3350 [Miralax] 17 gm PO DAILY 06/19/19 11/12/19 History Cholecalciferol [Vitamin D3 (25 2,000 unit PO HS 11/12/19 11/12/19 History Mcg = 1000 Iu)] Cyanocobalamin [Vitamin B-12] 500 mcg PO HS 11/12/19 11/12/19 History Levothyroxine Sodium [Euthyrox] 25 mcg PO DAILY 11/12/19 11/12/19 History Levothyroxine Sodium [Euthyrox] 200 mcg PO DAILY 11/12/19 11/12/19 History Magnesium Oxide 400 mg PO DAILY 11/12/19 11/12/19 History Multivitamins, Thera [Multivitamin 1 tab PO DAILY 11/12/19 11/12/19 History (formulary)] Omeprazole [PriLOSEC] 40 mg PO DAILY 11/12/19 11/12/19 History Vitamin A 8,000 unit PO HS 11/12/19 11/12/19 History Zinc Gluconate [Zinc] 50 mg PO HS 11/12/19 11/12/19 History Allergies Allergy/AdvReac Type Severity Reaction Status Date / Time prednisone Allergy Rash/Hives Verified 11/12/19 22:25 Physical Exam Vitals: Vital Signs Temp Pulse Pulse Resp BP BP Pulse Ox 11/12/19 22:46 97.7 F 66 17 142/67 98 11/12/19 22:44 98.8 F 72 18 138/74 98 11/12/19 20:39 98.9 F 72 18 140/86 97 Intake and Output 11/12/19 11/12/19 11/13/19 14:59 22:59 06:59 Intake Total 0 Balance 0 Intake: Oral 0 Other: Weight 114.759 kg Constitutional: No acute distress, conversant, pleasant Eyes: Anicteric sclerae, moist conjunctiva Pupils equal round reactive to light ENMT: NC/AT Oropharynx clear, no erythema, or exudates Neck: Supple, FROM, no masses, or JVD No carotid bruits No thyromegaly Lungs: Clear to auscultation Clear to percussion Normal respiratory effort, no accessory muscle use Cardiovascular: Heart regular in rate and rhythm, No murmurs, gallops, or rubs No peripheral edema Abdominal: Soft Discomfort to deep palpation over the epigastric region, no guarding, rebound or rigidity Abdomen moving with respiration Normoactive bowel sounds No hepatomegaly, No splenomegaly No palpable mass No abdominal wall hernia noted Skin: Normal temperature, tone, texture, turgor No induration No subcutaneous nodules No rash, lesions No ulcers Extremities: No digital cyanosis No clubbing Pedal pulses intact and symmetrical Radial pulses intact and symmetrical No calf tenderness Psychiatric: Alert and oriented to person, place and time Appropriate affect fair judgement Neuro Muscles Strength 5/5 in all 4 extremities Sensation to light touch grossly present throughout Cranial nerves II-XII grossly intact No focal sensory deficits Lymphatics: no palpable cervical or supraclavicular , or inguinal lymph nodes Thrombosis Risk Factor Assmnt - Choose All That Apply Any of the Below Risk Factors Present?: Yes Each Factor Represents 1 point: Obesity (BMI >25) Other Risk Factors: Yes Each Risk Factor Represents 2 Points: Age 61-74 years Other congenital or acquired thrombophilia - If yes, enter type in comment: No Thrombosis Risk Factor Assessment Total Risk Factor Score: 3 Thrombosis Risk Factor Assessment Level: Moderate Risk Assessment and Plan Assessment: Acute GI bleeding PPI twice a day Nothing by mouth IV fluid hydration GI consultation Close monitoring of hemoglobin every 8 hours Transfuse if significant drop in hemoglobin or symptomatic Currently hemoglobin stable Chronic conditions Patient has one kidney at Hypertension History of gastric bariatric surgery with Immanuel-en-Y Resume home meds and vitamins Preformed a thorough record review from recent hospitalization January 2019 patient has significant GI bleeding was significant drop in her hemoglobin requiring blood transfusion of couple units, endoscopy done EGD, C scope, small intestine pill camera however no source of bleeding was identified at that time CODE STATUS: Full code DVT prophylaxis: Mechanical due to GI bleeding Discussed with: Patient, ER, RN Anticipated length of stay less than [address]: Home A total of 75 minutes was spent on the care of this complex patient more than 50% of the time was spent in counseling and care coordination.
[2019-11-13 00:36] LABS: Basophils # (A) 0.1 k/uL (0-0.2); Basophils % (A) 1 %; Eosinophils # (A) 0.3 k/uL (0-0.7); Eosinophils % (A) 4 %; HCT 42.5 % (34.0-46.0); HGB 13.6 gm/dL (11.4-16.0); Lymphocytes # (A) 2.3 k/uL (1.0-4.8); Lymphocytes % (A) 27 %; MCH 29.7 pg (25.0-35.0); MCV 92.7 fL (80.0-100.0); Mean Platelet Volume 8.8; Monocytes # (A) 0.4 k/uL (0-1.0); Monocytes % (A) 5 %; Neutrophils # (A) 5.3 k/uL (1.3-7.7); Neutrophils % (A) 62 %; Platelet Count 161 k/uL (150-450); RBC 4.58 m/uL (3.80-5.40); RDW 13.6 % (11.5-15.5); WBC 8.5 k/uL (3.8-10.6)
[2019-11-13] MEDS ORDERED: LEVOTHYROXINE 25 MCG TAB PO SCH (06:30)
[2019-11-13] MEDS ORDERED: LEVOTHYROXINE 100 MCG TAB PO SCH (06:30)
[2019-11-13] MEDS ORDERED: PANTOPRAZOLE 40 MG TABLET PO SCH (07:30)
[2019-11-13 07:33] LABS: Basophils # (A) 0.1 k/uL (0-0.2); Basophils % (A) 1 %; Eosinophils # (A) 0.3 k/uL (0-0.7); Eosinophils % (A) 4 %; HCT 42.7 % (34.0-46.0); HGB 13.5 gm/dL (11.4-16.0); Lymphocytes # (A) 1.7 k/uL (1.0-4.8); Lymphocytes % (A) 25 %; MCH 29.5 pg (25.0-35.0); MCHC 31.7 g/dL (31.0-37.0); MCV 93.2 fL (80.0-100.0); Mean Platelet Volume 8.3; Monocytes # (A) 0.5 k/uL (0-1.0); Monocytes % (A) 7 %; Neutrophils # (A) 4.4 k/uL (1.3-7.7); Neutrophils % (A) 62 %; Platelet Count 155 k/uL (150-450); RBC 4.59 m/uL (3.80-5.40); RDW 13.5 % (11.5-15.5); WBC 7.1 k/uL (3.8-10.6)
[2019-11-13 07:42] LABS: ALT 15 U/L (4-34); AST 21 U/L (14-36); African American GFR (CKD) >90 (>60 ml/min/1.73 sqM); Albumin 3.1 g/dL (3.5-5.0); Alkaline Phosphatase 85 U/L (38-126); Anion Gap 3 mmol/L; Blood Urea Nitrogen 24 mg/dL (7-17); Carbon Dioxide 28 mmol/L (22-30); Chloride 109 mmol/L (98-107); Glucose 127 mg/dL (74-99); Non-African American GFR(CKD) 79 (>60 ml/min/1.73 sqM); Sodium 140 mmol/L (137-145); Total Bilirubin 0.6 mg/dL (0.2-1.3); Total Protein 5.6 g/dL (6.3-8.2)
[2019-11-13] MEDS ORDERED: amLODIPine 10 MG TAB PO SCH (09:00)
[2019-11-13] MEDS ORDERED: ATORVASTATIN 20 MG TAB PO SCH (09:00)
[2019-11-13] MEDS ORDERED: buPROPion XL 150 MG TAB.ER.24H PO SCH (09:00)
[2019-11-13 09:16] VITALS: BP 109/55; PULSE 63; RESP 19; TEMP 98.3
[2019-11-13] MEDS: SODIUM CHLORIDE 0.9% 1,000 ML IV SCH (12:22)
--- NOTE | 2019-11-13 14:42 | P.GSCN ---
<Carmen Lopez - Last Filed: 11/13/19 14:41> History of Present Illness Consult date: 11/13/19 History of present illness: CHIEF COMPLAINT: Bright red blood per rectum HISTORY OF PRESENT ILLNESS: This is a 64-year-old female known history of Immanuel-en-Y, diabetes mellitus, GERD, previous diverticular bleeds, hyperlipidemia, hypertension, hypothyroidism, hiatal hernia, diverticulitis, cholecystectomy and hysterectomy. Patient presents to the emergency room after having bright red blood with clots per rectum times one episode. She also reports some upper epigastric pain. Patient had eaten some food with seeds earlier that day. Patient denies taking any aspirin or NSAIDs. Due to her p revious history of GI bleed in January she presented to the emergency room for further evaluation and treatment. We have been consulted in regards to her rectal bleeding. Patient had colonoscopy in January 2019 revealed diverticulosis and hemorrhoids. Patient denies any fever, chills, sweats, n ausea or vomiting. She is afebrile. Hemoglobin stable at 13.5 PAST MEDICAL HISTORY: See list. PAST SURGICAL HISTORY: See list. MEDICATIONS: See list. ALLERGIES: See list. SOCIAL HISTORY: No illicit drug use. REVIEW OF SYSTEMS: CONSTITUTIONAL: Denies fever or chills. HEENT: Denies blurred vision, vision changes, or eye pain. Denies hemoptysis ENDOCRINE: Denies heat or cold intolerance. CARDIOVASCULAR: Denies chest pain or pressure. RESPIRATORY: No shortness of breath. GASTROINTESTINAL: Denies abdominal pain. Denies nausea or vomiting. NEURO: Denies history of seizures. PSYCH: No depression or suicidal ideation HEMATOLOGIC: Denies bleeding disorders. LYMPHATIC: The patient denies any lumps and bumps around the neck. GENITOURINARY: Denies any blood in urine or increased urinary frequency. MUSCULOSKELETAL: Denies myalgias. Denies joint swelling. Denies decreased range of motion beyond patients baseline. SKIN: Denies pruitis. Denies rash. PHYSICAL EXAM: VITAL SIGNS: Reviewed GENERAL: Well-developed in no acute distress. HEENT: No sclera icterus. Extraocular movements grossly intact. Moist buccal mucosa. Head is atraumatic, normocephalic. Hears conversational speech. No nasal drainage. NECK: Supple without lymphadenopathy. CHEST: Non-labored respirations and equal bilateral excursions. CARDIOVASCULAR: Regular rate with regular rhythm. Palpable 2+ radial pulses. ABDOMEN: Soft. Nondistended. Epigastric tenderness MUSCULOSKELETAL: No clubbing or cyanosis. NEUROLOGIC: No focal or lateralizing signs. Cranial nerves II through XII grossly intact. PSYCH: Appropriate affect. Alert and oriented to person, place and time. SKIN: Well perfused. Good skin turgor. LABORATORY DATA: WBC 7.1, hemoglobin 13.5, platelets are 155, IMAGING: ASSESSMENT: 1. Gastrointestinal bleed with bright red blood per rectum likely transient 2. Epigastric abdominal pain 3. History of diverticulitis PLAN: -We'll start patient on regular diet -She has been educated to avoid any seeds or nuts in her diet -She can be discharged home from a surgical standpoint -[facility], [facility] 02 Physician Electronic Publishing Specialist note has been reviewed by physician. Signing provider agrees with the documented findings, assessment, and plan of care. Past Medical History Past Medical History: Diabetes Mellitus, GERD/Reflux, GI Bleed, Hyperlipidemia, Hypertension, Renal Disease, Thyroid Disorder Additional Past Medical History / Comment(s): Hiatal hernia, diverticulitis w/ lower GI bleed, gastric stricture/dysphagia w/ dilation, gastric benign polyp, NIDDM type II-no longer on meds since wt loss, R nephrectomy r/t congenital defect, benign thyroid nodules-thyroidectomy, GI bleed in "old stomach" (hx gastric bypass, GI bleed R/T stomach that is not used. (January 2019) History of Any Multi-Drug Resistant Organisms: None Reported Past Surgical History: Adenoidectomy, Bariatric Surgery, Breast Surgery, Cholecystectomy, Hysterectomy, Tonsillectomy, Tubal Ligation Additional Past Surgical History / Comment(s): R nephrectomy/ureterectomy, thyroidectomy, Immanuel en Y gastric bypass 12/2017, EGD with dilation, colonoscopy, hysteroscopy D&C x2, last 06/20/19; Rt breast benign biopsy; 12/2017 Immanuel-en-Y with Dr. Murray Full hysterectomy September2019 Past Anesthesia/Blood Transfusion Reactions: Previous Problems w/ Anesthesia Additional Past Anesthesia/Blood Transfusion Reaction / Comm: Hard time awakening from anesthesia Past Psychological History: Anxiety Additional Psychological History / Comment(s): Pt resides with her spouse, her brother and their adult daughter. She is independendt. Smoking Status: Former smoker Past Alcohol Use History: None Reported Additional Past Alcohol Use History / Comment(s): Pt was a light smoker from 1973 until 1984-3 cigarettes a day. Past Drug Use History: None Reported - Past Family History Father Family Medical History: Cancer Additional Family Medical History / Comment(s): LUNG Mother Family Medical History: Cancer Additional Family Medical History / Comment(s): BREAST Sister(s) Family Medical History: Cancer Additional Family Medical History / Comment(s): 2 SISTER HAD BREAST CANCER Brother(s) Family Medical History: Myocardial Infarction (HI) Additional Family Medical History / Comment(s): Brother is living. He had a HI at the age of 50yrs. Medications and Allergies Home Medications Medication Instructions Recorded Confirmed Type buPROPion XL [Wellbutrin XL] 300 mg PO DAILY 07/29/18 11/12/19 History amLODIPine [Norvasc] 10 mg PO DAILY 02/25/19 11/12/19 History Atorvastatin [Lipitor] 10 mg PO DAILY 02/28/19 11/12/19 History polyethylene glycoL 3350 [Miralax] 17 gm PO DAILY 06/19/19 11/12/19 History Cholecalciferol [Vitamin D3 (25 2,000 unit PO HS 11/12/19 11/12/19 History Mcg = 1000 Iu)] Cyanocobalamin [Vitamin B-12] 500 mcg PO HS 11/12/19 11/12/19 History Levothyroxine Sodium [Euthyrox] 25 mcg PO DAILY 11/12/19 11/12/19 History Levothyroxine Sodium [Euthyrox] 200 mcg PO DAILY 11/12/19 11/12/19 History Magnesium Oxide 400 mg PO DAILY 11/12/19 11/12/19 History Multivitamins, Thera [Multivitamin 1 tab PO DAILY 11/12/19 11/12/19 History (formulary)] Omeprazole [PriLOSEC] 40 mg PO DAILY 11/12/19 11/12/19 History Vitamin A 8,000 unit PO HS 11/12/19 11/12/19 History Zinc Gluconate [Zinc] 50 mg PO HS 11/12/19 11/12/19 History Allergies Allergy/AdvReac Type Severity Reaction Status Date / Time prednisone Allergy Rash/Hives Verified 11/12/19 22:25 Surgical - Exam Vital Signs Temp Pulse Resp BP Pulse Ox 98.9 F 72 18 140/86 97 11/12/19 20:39 11/12/19 20:39 11/12/19 20:39 11/12/19 20:39 11/12/19 20:39 Results - Labs 11/13/19 06:57 11/13/19 06:57 Abnormal Lab Results - Last 24 Hours (Table) 11/13/19 Range/Units 06:57 Chloride 109 H (98-107) mmol/L BUN 24 H (7-17) mg/dL Glucose 127 H (74-99) mg/dL Calcium 8.0 L (8.4-10.2) mg/dL Total Protein 5.6 L (6.3-8.2) g/dL Albumin 3.1 L (3.5-5.0) g/dL Diabetes panel 11/13/19 Range/Units 06:57 Sodium 140 (137-145) mmol/L Potassium 4.0 (3.5-5.1) mmol/L Chloride 109 H (98-107) mmol/L Carbon Dioxide 28 (22-30) mmol/L BUN 24 H (7-17) mg/dL Creatinine 0.81 (0.52-1.04) mg/dL Glucose 127 H (74-99) mg/dL Calcium 8.0 L (8.4-10.2) mg/dL AST 21 (14-36) U/L ALT 15 (4-34) U/L Alkaline Phosphatase 85 (38-126) U/L Total Protein 5.6 L (6.3-8.2) g/dL Albumin 3.1 L (3.5-5.0) g/dL Calcium panel 11/13/19 Range/Units 06:57 Calcium 8.0 L (8.4-10.2) mg/dL Albumin 3.1 L (3.5-5.0) g/dL Pituitary panel 11/13/19 Range/Units 06:57 Sodium 140 (137-145) mmol/L Potassium 4.0 (3.5-5.1) mmol/L Chloride 109 H (98-107) mmol/L Carbon Dioxide 28 (22-30) mmol/L BUN 24 H (7-17) mg/dL Creatinine 0.81 (0.52-1.04) mg/dL Glucose 127 H (74-99) mg/dL Calcium 8.0 L (8.4-10.2) mg/dL Adrenal panel 11/13/19 Range/Units 06:57 Sodium 140 (137-145) mmol/L Potassium 4.0 (3.5-5.1) mmol/L Chloride 109 H (98-107) mmol/L Carbon Dioxide 28 (22-30) mmol/L BUN 24 H (7-17) mg/dL Creatinine 0.81 (0.52-1.04) mg/dL Glucose 127 H (74-99) mg/dL Calcium 8.0 L (8.4-10.2) mg/dL Total Bilirubin 0.6 (0.2-1.3) mg/dL AST 21 (14-36) U/L ALT 15 (4-34) U/L Alkaline Phosphatase 85 (38-126) U/L Total Protein 5.6 L (6.3-8.2) g/dL Albumin 3.1 L (3.5-5.0) g/dL <Qian Murray - Last Filed: 11/13/19 21:08> History of Present Illness History of present illness: Patient seen and evaluated with above. Please see additional recommendations below. HISTORY OF PRESENT ILLNESS: Laura Bishop is a 64-year-old female status post gastric bypass, 12/17/2017. She is almost 2 year outs. She is hospitalized for gastrointestinal bleeding. She has no further bleeding. She reports eating cucumbers which she was unaware of having seeds. With the last 2 days developed epigastric discomfort followed by bowel movement with blood. Her ideal body weight for her height is 140 pounds for 5 feet 3.25 inches. Her highest weight was 362 pounds. Her highest body mass index was 63.8. She comes in 252 pounds from 242 pounds, 8 months ago. She has gained 10 pounds in 8 months. She has lost 107 pounds lifetime. Percent excess weight loss is 49 %. PAST MEDICAL HISTORY: 1. Morbid obesity. 2. Body mass index of 63.4, initial 3. Thyroid neoplasm. 4. Diabetes type 2. 5. Hyperlipidemia. 6. Essential hypertension. 7. Depression. 8. Gastroesophageal reflux disease. 9. Hypothyroidism. 10. Hyperlipidemia. 11. Seasonal ALLERGIES. PAST SURGICAL HISTORY: 1. Total thyroidectomy. 2. Adenoidectomy. 3. Cholecystectomy. 4. Tonsillectomy. 5. Tubal ligation. 6. Colonoscopy. 7. Right nephrectomy. 8. Breast biopsy. 9. D&C. 10. Upper endoscopy. HOME MEDICATIONS: Home Medications Medication Instructions Recorded Confirmed Omeprazole [PriLOSEC] 20 mg PO AC-BID 03/10/16 09/18/18 Levothyroxine Sodium [Synthroid] 25 mcg PO QAM 05/04/17 09/18/18 Levothyroxine Sodium [Synthroid] 200 mcg PO QAM 05/04/17 09/18/18 Calcium Citrate 250 mg PO TID 01/30/18 09/18/18 Multivitamins, Thera [Multivitamin 1 tab PO DAILY 01/30/18 09/18/18 (formulary)] Cholecalciferol (Vitamin D3) 10,000 unit PO DAILY 03/20/18 09/18/18 [Vitamin D3] Vitamin A Acetate [Vitamin A] 10,000 unit SL DAILY 03/20/18 09/18/18 amLODIPine [Norvasc] 5 mg PO QAM 06/19/18 09/18/18 Zinc 40 mg PO BID 07/29/18 09/18/18 buPROPion XL [Wellbutrin Xl] 150 mg PO QAM 07/29/18 09/18/18 ALLERGIES: 1. Prednisone SOCIAL HISTORY: Former tobacco use. No active alcohol use. FAMILY HISTORY: No family history of ulcerative colitis disease or Crohn's disease. She does have a family history of morbid obesity. She denies any lupus in her family. No reports of stomach or esophageal cancer. She has a family history of diabetes. REVIEW OF ORGAN SYSTEMS: CONSTITUTIONAL: Her highest weight was 360 pounds. Her highest body mass index was 63.4. Her ideal body weight is 140 pounds. HEENT: Denies any active troubles with vision or hearing. No dysphagia. ENDOCRINE: Has insulin dependent diabetes now resolved. Has hypothyroidism. CARDIOVASCULAR: Recent chest pain. History of hypertension. RESPIRATORY: Has daytime somnolence including snoring and sleep apnea. No asthma. GI: Denies any bright red blood per rectum or constipation. Does have gastroesophageal reflux disease as described above. MUSCULOSKELETAL: Has lower back pain and joint pain. Has osteoarthritis of the hips and knees. NEURO: No headaches. No seizure disorders. PSYCH: Has depression without suicidal ideation. RHEUMATOLOGIC: No lupus. No rheumatoid arthritis. HEMATOLOGIC: Has abnormal bleeding. No bruising. No personal history of DVTs. SKIN: No rash. No skin cancer. PHYSICAL EXAM: VITAL SIGNS: Height 5 foot 3.25 inches, weight 253 pounds. BMI 44.5 GENERAL: Well-developed female in no acute distress. HEENT: No scleral icterus. Extraocular movements grossly intact. Hears conversational speech. No nasal drainage. NECK: Supple without lymphadenopathy. Well-healed collar incision from previous thyroidectomy. CHEST: Nonlabored respirations with equal bilateral excursions. CARDIOVASCULAR: Bradycardic. Distal 2+ pulses. ABDOMEN: Soft, Nondistended. No hernias. Minimal epigastric tenderness. MUSCULOSKELETAL: No clubbing, cyanosis. NEURO: No focal or lateralizing signs. Cranial nerves 2 through 12 grossly within normal limits. PSYCH: Appropriate affect. Alert and oriented to person, place and time. SKIN: Good skin turgor. Well perfused. ASSESSMENT: 1. Gastrointestinal bleeding due to diverticulosis, now resolved 2. Morbid obesity due to excess calories, Body mass index 63.4 down to 44.5 3. Status post gastric bypass PLAN: 1. May start diet. 2. Strict no seeds diet described secondary to recurrent bleeding diverticulosis. 3. May follow up as outpatient. Surgical - Exam Vital Signs Temp Pulse Resp BP Pulse Ox 98.9 F 72 18 140/86 97 11/12/19 20:39 11/12/19 20:39 11/12/19 20:39 11/12/19 20:39 11/12/19 20:39 Results - Labs 11/13/19 06:57 11/13/19 06:57 Abnormal Lab Results - Last 24 Hours (Table) 11/13/19 Range/Units 06:57 Chloride 109 H (98-107) mmol/L BUN 24 H (7-17) mg/dL Glucose 127 H (74-99) mg/dL Calcium 8.0 L (8.4-10.2) mg/dL Total Protein 5.6 L (6.3-8.2) g/dL Albumin 3.1 L (3.5-5.0) g/dL Diabetes panel 11/13/19 Range/Units 06:57 Sodium 140 (137-145) mmol/L Potassium 4.0 (3.5-5.1) mmol/L Chloride 109 H (98-107) mmol/L Carbon Dioxide 28 (22-30) mmol/L BUN 24 H (7-17) mg/dL Creatinine 0.81 (0.52-1.04) mg/dL Glucose 127 H (74-99) mg/dL Calcium 8.0 L (8.4-10.2) mg/dL AST 21 (14-36) U/L ALT 15 (4-34) U/L Alkaline Phosphatase 85 (38-126) U/L Total Protein 5.6 L (6.3-8.2) g/dL Albumin 3.1 L (3.5-5.0) g/dL Calcium panel 11/13/19 Range/Units 06:57 Calcium 8.0 L (8.4-10.2) mg/dL Albumin 3.1 L (3.5-5.0) g/dL Pituitary panel 11/13/19 Range/Units 06:57 Sodium 140 (137-145) mmol/L Potassium 4.0 (3.5-5.1) mmol/L Chloride 109 H (98-107) mmol/L Carbon Dioxide 28 (22-30) mmol/L BUN 24 H (7-17) mg/dL Creatinine 0.81 (0.52-1.04) mg/dL Glucose 127 H (74-99) mg/dL Calcium 8.0 L (8.4-10.2) mg/dL Adrenal panel 11/13/19 Range/Units 06:57 Sodium 140 (137-145) mmol/L Potassium 4.0 (3.5-5.1) mmol/L Chloride 109 H (98-107) mmol/L Carbon Dioxide 28 (22-30) mmol/L BUN 24 H (7-17) mg/dL Creatinine 0.81 (0.52-1.04) mg/dL Glucose 127 H (74-99) mg/dL Calcium 8.0 L (8.4-10.2) mg/dL Total Bilirubin 0.6 (0.2-1.3) mg/dL AST 21 (14-36) U/L ALT 15 (4-34) U/L Alkaline Phosphatase 85 (38-126) U/L Total Protein 5.6 L (6.3-8.2) g/dL Albumin 3.1 L (3.5-5.0) g/dL Assessment and Plan (1) Sigmoid diverticulosis Status: Acute Code(s): K57.30 - DVRTCLOS OF LG INT W/O PERFORATION OR ABSCESS W/O BLEEDING SNOMED Code(s): 887575892 (2) Hematochezia Status: Acute Code(s): K92.1 - MELENA SNOMED Code(s): 430979267 (3) History of gastric bypass Status: Acute Code(s): Z98.84 - BARIATRIC SURGERY STATUS SNOMED Code(s): 506372699
--- NOTE | 2019-11-13 19:04 | P.DS ---
Providers Date of admission: 11/12/19 21:19 Expected date of discharge: 11/13/19 Attending physician: Elian Nieves MD Consults: 11/12/19 21:43 Consult Physician Routine Consulting Provider: Qian Murray Consult Reason/Comments: GI bleed Do you want consulting provider notified?: Yes Primary care physician: Stephy Harris Hospital Course: Discharge Diagnosis: Bright red blood per rectum likely hemorrhoidal bleed. Hx of GI bleed Hypertension Diabetes mellitus, no longer on medications Dyslipidemia Hospital Course: Patient is a 64-year-old female with prior GI bleed, status post Immanuel-en-Y gastric bypass, hypertension, and dyslipidemia who presented to the hospital secondary bright red blood per rectum associated with abdominal pain. In the ER her vital signs are within normal limits. Initial blood work showed hemoglobin of 13.6. She was admitted due to concern for GI bleed. Her Protonix was continued. Her repeat hemoglobin was unchanged. Patient did have a significant GI bleed in January 2019. At that point in time she underwent a colonoscopy which showed grade 3 external hemorrhoids, grade 2 internal hemorrhoids, and severe scattered diverticulosis all which would cause a transient GI bleed. Patient did not have any additional bloody bowel movements during her hospital stay. Her hemoglobin remained stable and redraw. She was seen by Dr. Murray who cleared her for discharge home with outpatient follow-up. She'll follow up with her PCP in one week and Dr. Dixon next month. Patient seen and examined at bedside. No additional bleeding. Feeling well. No chest pain, shortness of breath, nausea, or abdominal pain. Vital signs reviewed and stable. General: non toxic, no distress, appears at stated age Derm: warm, dry Head: atraumatic, normocephalic, symmetric Eyes: EOMI, no lid lag, anicteric sclera Mouth: no lip lesion, mucus membranes moist Cardiovascular: S1S2 reg, no murmur, positive posterior tibial pulse bilateral, Lungs: CTA bilateral, no rhonchi, no rales , no accessory muscle use Abdominal: soft, nontender to palpation, no guarding, no appreciable organomegaly Ext: no gross muscle atrophy, no edema, no contractures Neuro: CN II-XI grossly intact, no focal neuro deficits Psych: Alert, oriented, appropriate affect A total of 25 minutes of time were spent preparing this complex discharge summary . Patient Condition at Discharge: Stable Plan - Discharge Summary Discharge Rx Participant: No New Discharge Prescriptions: Continue buPROPion XL [Wellbutrin XL] 300 mg PO DAILY amLODIPine [Norvasc] 10 mg PO DAILY Atorvastatin [Lipitor] 10 mg PO DAILY polyethylene glycoL 3350 [Miralax] 17 gm PO DAILY Zinc Gluconate [Zinc] 50 mg PO HS Cyanocobalamin [Vitamin B-12] 500 mcg PO HS Vitamin A 8,000 unit PO HS Cholecalciferol [Vitamin D3 (25 Mcg = 1000 Iu)] 2,000 unit PO HS Multivitamins, Thera [Multivitamin (formulary)] 1 tab PO DAILY Omeprazole [PriLOSEC] 40 mg PO DAILY Levothyroxine Sodium [Euthyrox] 200 mcg PO DAILY Levothyroxine Sodium [Euthyrox] 25 mcg PO DAILY Magnesium Oxide 400 mg PO DAILY Discharge Medication List buPROPion XL [Wellbutrin XL] 300 mg PO DAILY 07/29/18 [History] amLODIPine [Norvasc] 10 mg PO DAILY 02/25/19 [History] Atorvastatin [Lipitor] 10 mg PO DAILY 02/28/19 [History] polyethylene glycoL 3350 [Miralax] 17 gm PO DAILY 06/19/19 [History] Cholecalciferol [Vitamin D3 (25 Mcg = 1000 Iu)] 2,000 unit PO HS 11/12/19 [History] Cyanocobalamin [Vitamin B-12] 500 mcg PO HS 11/12/19 [History] Levothyroxine Sodium [Euthyrox] 25 mcg PO DAILY 11/12/19 [History] Levothyroxine Sodium [Euthyrox] 200 mcg PO DAILY 11/12/19 [History] Magnesium Oxide 400 mg PO DAILY 11/12/19 [History] Multivitamins, Thera [Multivitamin (formulary)] 1 tab PO DAILY 11/12/19 [History] Omeprazole [PriLOSEC] 40 mg PO DAILY 11/12/19 [History] Vitamin A 8,000 unit PO HS 11/12/19 [History] Zinc Gluconate [Zinc] 50 mg PO HS 11/12/19 [History] Follow up Appointment(s)/Referral(s): Stephy Harris MD [Primary Care Provider] - 1-2 days [facility] [place], [place] [NON-STAFF] - 12/03/19 Patient Instructions/Handouts: Gastrointestinal Bleeding (GEN), Diverticulitis (GEN) Activity/Diet/Wound Care/Special Instructions: Activity: as tolerated Diet: regular Discharge Disposition: HOME SELF-CARE
== END 2019-11-13 15:10 | disposition home or self-care (01) ==
LOC: EC 20:26 → 1SOBS 21:19
PROVIDERS: ADMIT Internal Medicine; ATTEND Internal Medicine
DX: K57.31 Diverticulosis of large intestine without perforation or abscess with bleeding (principal); K64.4 Residual hemorrhoidal skin tags; K64.1 Second degree hemorrhoids; I10 Essential (primary) hypertension; E11.9 Type 2 diabetes mellitus without complications; E78.5 Hyperlipidemia, unspecified; K21.9 Gastro-esophageal reflux disease without esophagitis; K44.9 Diaphragmatic hernia without obstruction or gangrene; E89.0 Postprocedural hypothyroidism; F41.9 Anxiety disorder, unspecified; J30.2 Other seasonal allergic rhinitis; E66.01 Morbid (severe) obesity due to excess calories; Z68.41 Body mass index [BMI] 40.0-44.9, adult; Z87.19 Personal history of other diseases of the digestive system; Z98.890 Other specified postprocedural states; Z79.890 Hormone replacement therapy; Z79.899 Other long term (current) drug therapy; Z88.8 Allergy status to other drugs, medicaments and biological substances; Z90.5 Acquired absence of kidney; Z87.798 Personal history of other (corrected) congenital malformations; Z98.84 Bariatric surgery status; Z90.89 Acquired absence of other organs; Z90.49 Acquired absence of other specified parts of digestive tract; Z90.710 Acquired absence of both cervix and uterus; Z98.51 Tubal ligation status; Z90.6 Acquired absence of other parts of urinary tract; Z91.89 Other specified personal risk factors, not elsewhere classified; Z87.891 Personal history of nicotine dependence; Z80.1 Family history of malignant neoplasm of trachea, bronchus and lung; Z80.3 Family history of malignant neoplasm of breast; Z82.49 Family history of ischemic heart disease and other diseases of the circulatory system; Z83.49 Family history of other endocrine, nutritional and metabolic diseases
CPT/HCPCS: 99285; 80053; 85025; G0378 ×2

== ENCOUNTER 2019-11-15 07:36 | Inpatient (IN) | payer OTHER ==
--- NOTE | 2019-11-15 08:19 | ED ---
General Adult HPI - General Chief complaint: GI Bleed Stated complaint: abdominal pain Time Seen by Provider: 11/15/19 07:47 Source: patient, RN notes reviewed, old records reviewed Mode of arrival: ambulatory Limitations: no limitations - History of Present Illness Initial comments: 64-year-old female presents for reevaluation of rectal bleeding. Patient was admitted 3 days ago with bright red rectal bleeding. She was evaluated by general surgery and was discharged without any further bleeding. No intervention required. This morning she's had 3 episodes of bright red rectal bleeding mixed with stool. She has a history of diverticulosis and lower GI bleeds in the past. She is not on any blood thinners. She reports some mild discomfort in the left lower abdomen. No fever or chills. No vomiting. - Related Data Home Medications Medication Instructions Recorded Confirmed buPROPion XL [Wellbutrin XL] 300 mg PO DAILY 07/29/18 11/12/19 amLODIPine [Norvasc] 10 mg PO DAILY 02/25/19 11/12/19 Atorvastatin [Lipitor] 10 mg PO DAILY 02/28/19 11/12/19 polyethylene glycoL 3350 [Miralax] 17 gm PO DAILY 06/19/19 11/12/19 Cholecalciferol [Vitamin D3 (25 2,000 unit PO HS 11/12/19 11/12/19 Mcg = 1000 Iu)] Cyanocobalamin [Vitamin B-12] 500 mcg PO HS 11/12/19 11/12/19 Levothyroxine Sodium [Euthyrox] 25 mcg PO DAILY 11/12/19 11/12/19 Levothyroxine Sodium [Euthyrox] 200 mcg PO DAILY 11/12/19 11/12/19 Magnesium Oxide 400 mg PO DAILY 11/12/19 11/12/19 Multivitamins, Thera [Multivitamin 1 tab PO DAILY 11/12/19 11/12/19 (formulary)] Omeprazole [PriLOSEC] 40 mg PO DAILY 11/12/19 11/12/19 Vitamin A 8,000 unit PO HS 11/12/19 11/12/19 Zinc Gluconate [Zinc] 50 mg PO HS 11/12/19 11/12/19 Allergies Allergy/AdvReac Type Severity Reaction Status Date / Time prednisone Allergy Rash/Hives Verified 11/15/19 07:41 Review of Systems ROS Statement: Those systems with pertinent positive or pertinent negative responses have been documented in the HPI. ROS Other: All systems not noted in ROS Statement are negative. Past Medical History Past Medical History: Diabetes Mellitus, GERD/Reflux, GI Bleed, Hyperlipidemia, Hypertension, Renal Disease, Thyroid Disorder Additional Past Medical History / Comment(s): Hiatal hernia, diverticulitis w/ lower GI bleed, gastric stricture/dysphagia w/ dilation, gastric benign polyp, NIDDM type II-no longer on meds since wt loss, R nephrectomy r/t congenital defect, benign thyroid nodules-thyroidectomy, GI bleed in "old stomach" (hx gastric bypass, GI bleed R/T stomach that is not used. (January 2019) History of Any Multi-Drug Resistant Organisms: None Reported Past Surgical History: Adenoidectomy, Bariatric Surgery, Breast Surgery, Cholecystectomy, Hysterectomy, Tonsillectomy, Tubal Ligation Additional Past Surgical History / Comment(s): R nephrectomy/ureterectomy, thyroidectomy, Immanuel en Y gastric bypass 12/2017, EGD with dilation, colonoscopy, hysteroscopy D&C x2, last 06/20/19; Rt breast benign biopsy; 12/2017 Immanuel-en-Y with Dr. Murray Full hysterectomy September2019 Past Anesthesia/Blood Transfusion Reactions: Previous Problems w/ Anesthesia Additional Past Anesthesia/Blood Transfusion Reaction / Comment(s): Hard time awakening from anesthesia Past Psychological History: Anxiety Smoking Status: Former smoker Past Alcohol Use History: None Reported Past Drug Use History: None Reported - Past Family History Father Family Medical History: Cancer Additional Family Medical History / Comment(s): LUNG Mother Family Medical History: Cancer Additional Family Medical History / Comment(s): BREAST Sister(s) Family Medical History: Cancer Additional Family Medical History / Comment(s): 2 SISTER HAD BREAST CANCER Brother(s) Family Medical History: Myocardial Infarction ([place]) Additional Family Medical History / Comment(s): Brother is living. He had a [place] at the age of 50yrs. General Exam Limitations: no limitations General appearance: alert, in no apparent distress Head exam: Present: atraumatic, normocephalic Eye exam: Present: normal appearance, PERRL ENT exam: Present: normal exam Neck exam: Present: normal inspection. Absent: tenderness, meningismus Respiratory exam: Present: normal lung sounds bilaterally. Absent: respiratory distress, wheezes Cardiovascular Exam: Present: regular rate, normal rhythm GI/Abdominal exam: Present: soft. Absent: distended, tenderness, guarding, rebound Extremities exam: Present: normal inspection, normal capillary refill. Absent: pedal edema Neurological exam: Present: alert, oriented X3, CN II-XII intact. Absent: motor sensory deficit Psychiatric exam: Present: normal affect, normal mood Skin exam: Present: warm, dry, intact. Absent: cyanosis, diaphoretic Course Vital Signs 11/15/19 07:38 Temperature 98.5 F Pulse Rate 94 Respiratory 18 Rate Blood Pressure 132/75 O2 Sat by Pulse 100 Oximetry Medical Decision Making - Medical Decision Making 64-year-old female with reevaluation for rectal bleeding. History of diverticulosis. Patient does have several episodes in the emergency department of bright red rectal bleeding, small volume. Vitals are stable, hemoglobin is 13.5. I did discuss case with the admitting physician Dr. Palmer and with Dr. Teague covering for Dr. Murray. - Lab Data Result diagrams: 11/15/19 08:29 11/15/19 08:29 Lab Results 11/15/19 11/15/19 11/15/19 Range/Units 08:29 08:29 08:29 WBC 7.6 (3.8-10.6) k/uL RBC 4.62 (3.80-5.40) m/uL Hgb 13.5 (11.4-16.0) gm/dL Hct 42.6 (34.0-46.0) % MCV 92.1 (80.0-100.0) fL MCH 29.1 (25.0-35.0) pg MCHC 31.6 (31.0-37.0) g/dL RDW 13.5 (11.5-15.5) % Plt Count 194 (150-450) k/uL Neutrophils % 73 % Lymphocytes % 18 % Monocytes % 4 % Eosinophils % 3 % Basophils % 1 % Neutrophils # 5.5 (1.3-7.7) k/uL Lymphocytes # 1.4 (1.0-4.8) k/uL Monocytes # 0.3 (0-1.0) k/uL Eosinophils # 0.2 (0-0.7) k/uL Basophils # 0.1 (0-0.2) k/uL PT 9.9 (9.0-12.0) sec INR 0.9 (<1.2) APTT 22.7 (22.0-30.0) sec Sodium 139 (137-145) mmol/L Potassium 4.1 (3.5-5.1) mmol/L Chloride 109 H (98-107) mmol/L Carbon Dioxide 23 (22-30) mmol/L Anion Gap 7 mmol/L BUN 21 H (7-17) mg/dL Creatinine 0.92 (0.52-1.04) mg/dL Est GFR (CKD-EPI)AfAm 77 (>60 ml/min/1.73 sqM) Est GFR (CKD-EPI)NonAf 67 (>60 ml/min/1.73 sqM) Glucose 184 H (74-99) mg/dL Calcium 8.2 L (8.4-10.2) mg/dL Magnesium 2.1 (1.6-2.3) mg/dL Total Bilirubin 0.6 (0.2-1.3) mg/dL AST 34 (14-36) U/L ALT 32 (4-34) U/L Alkaline Phosphatase 106 (38-126) U/L Total Protein 6.5 (6.3-8.2) g/dL Albumin 3.8 (3.5-5.0) g/dL Blood Type Blood Type Recheck Bld Type Recheck Status Antibody Screen Spec Expiration Date 11/15/19 Range/Units 08:29 WBC (3.8-10.6) k/uL RBC (3.80-5.40) m/uL Hgb (11.4-16.0) gm/dL Hct (34.0-46.0) % MCV (80.0-100.0) fL MCH (25.0-35.0) pg MCHC (31.0-37.0) g/dL RDW (11.5-15.5) % Plt Count (150-450) k/uL Neutrophils % % Lymphocytes % % Monocytes % % Eosinophils % % Basophils % % Neutrophils # (1.3-7.7) k/uL Lymphocytes # (1.0-4.8) k/uL Monocytes # (0-1.0) k/uL Eosinophils # (0-0.7) k/uL Basophils # (0-0.2) k/uL PT (9.0-12.0) sec INR (<1.2) APTT (22.0-30.0) sec Sodium (137-145) mmol/L Potassium (3.5-5.1) mmol/L Chloride (98-107) mmol/L Carbon Dioxide (22-30) mmol/L Anion Gap mmol/L BUN (7-17) mg/dL Creatinine (0.52-1.04) mg/dL Est GFR (CKD-EPI)AfAm (>60 ml/min/1.73 sqM) Est GFR (CKD-EPI)NonAf (>60 ml/min/1.73 sqM) Glucose (74-99) mg/dL Calcium (8.4-10.2) mg/dL Magnesium (1.6-2.3) mg/dL Total Bilirubin (0.2-1.3) mg/dL AST (14-36) U/L ALT (4-34) U/L Alkaline Phosphatase (38-126) U/L Total Protein (6.3-8.2) g/dL Albumin (3.5-5.0) g/dL Blood Type B Positive Blood Type Recheck B Pos Bld Type Recheck Status No Antibody Screen NEGATIVE Spec Expiration Date 11/18/2019 - 2328 Critical Care Time Critical Care Time: Yes Total Critical Care Time: 35 Disposition Clinical Impression: Lower GI bleed Disposition: ADMITTED IP TO THIS [facility] Condition: Stable Is patient prescribed a controlled substance at d/c from ED?: No Decision to Admit Reason: Admit from EC Decision Date: 11/15/19 Decision Time: 09:01
[2019-11-15 08:38] LABS: Basophils # (A) 0.1 k/uL (0-0.2); Basophils % (A) 1 %; Eosinophils # (A) 0.2 k/uL (0-0.7); Eosinophils % (A) 3 %; HCT 42.6 % (34.0-46.0); HGB 13.5 gm/dL (11.4-16.0); Lymphocytes # (A) 1.4 k/uL (1.0-4.8); Lymphocytes % (A) 18 %; MCH 29.1 pg (25.0-35.0); MCHC 31.6 g/dL (31.0-37.0); MCV 92.1 fL (80.0-100.0); Mean Platelet Volume 8.7; Monocytes # (A) 0.3 k/uL (0-1.0); Monocytes % (A) 4 %; Neutrophils # (A) 5.5 k/uL (1.3-7.7); Neutrophils % (A) 73 %; Platelet Count 194 k/uL (150-450); RBC 4.62 m/uL (3.80-5.40); RDW 13.5 % (11.5-15.5); WBC 7.6 k/uL (3.8-10.6)
[2019-11-15 08:46] LABS: INR 0.9 (<1.2); Partial Thromboplastin Time 22.7 sec (22.0-30.0); Prothrombin Time 9.9 sec (9.0-12.0)
[2019-11-15 08:48] LABS: Albumin 3.8 g/dL (3.5-5.0); Calcium 8.2 mg/dL (8.4-10.2); Magnesium 2.1 mg/dL (1.6-2.3); Potassium 4.1 mmol/L (3.5-5.1); Total Bilirubin 0.6 mg/dL (0.2-1.3); Total Protein 6.5 g/dL (6.3-8.2)
[2019-11-15] MEDS ORDERED: NALOXONE 0.4 MG/ML 1 ML VIAL IV PRN (08:57)
[2019-11-15] MEDS ORDERED: SODIUM CHLORIDE 0.9% 1,000 ML IV SCH (09:00)
[2019-11-15 11:10] LABS: Glucose,Whole Blood 144 mg/dL (75-99)
[2019-11-15 11:48] LABS: HCT 37.9 % (34.0-46.0); HGB 12.1 gm/dL (11.4-16.0); MCH 29.9 pg (25.0-35.0); MCV 93.6 fL (80.0-100.0); Mean Platelet Volume 9.1; Platelet Count 156 k/uL (150-450); RBC 4.05 m/uL (3.80-5.40); RDW 13.5 % (11.5-15.5); WBC 8.3 k/uL (3.8-10.6)
[2019-11-15] MEDS ORDERED: ACETAMINOPHEN TAB 325 MG TAB PO PRN (12:10)
[2019-11-15] MEDS ORDERED: ONDANSETRON 4 MG/2 ML VIAL IVP PRN (12:10)
--- NOTE | 2019-11-15 13:12 | P.HPIM ---
History of Present Illness H&P Date: 11/15/19 Chief Complaint: bright red blood per rectum Patient is a 64-year-old female with past medical history of hypertension, Immanuel-en-Y gastric bypass, prior GI bleed of unknown cause in January 2019 with colonoscopy that showed internal and external hemorrhoids as well as diverticulosis him a hypertension, and dyslipidemia who presented to the emergency department secondary to bright red blood per rectum. Of note patient was hospitalized here from 11/11 through 11/12 for the same complaint. At that point in time she had had one bright red bowel movement but had no additional ones after hospitalization her hemoglobin stayed stable at 13.5. She states that she had recurrence of her bright red blood per rectum starting on 8:15 at 6:30 AM. On arrival to the ER her vital signs were within normal limits. Laboratory analysis again shows hemoglobin 13.5. She was started on IV fluids and arrangements were made for admission. After arrival to the ER she had shiela arently 3 additional bowel movements with bright red blood and then had an additional one on the floor. She was subsequently immediately transferred to the ICU. Patient seen and examined at bedside. She reports that she had bright red blood starting at 6:30 this morning in the toilet. Initially she was having some upper abdominal pain and nausea but this has since resolved. She denies any vom iting. She states showed total of 5 bloody bowel movements. She is no longer having any abdominal pain. She did have some lightheadedness during her third bowel movement but this has since resolved. She denies any chest pain, shortness of breath, or dizziness. She did not eat anything unusual or change her diet since leaving the hospital. Review of Systems Pertinent positives and negatives as discussed in HPI, a complete review of systems was performed and all other systems are negative. Past Medical History Past Medical History: Diabetes Mellitus, GERD/Reflux, GI Bleed, Hyperlipidemia, Hypertension, Renal Disease, Thyroid Disorder Additional Past Medical History / Comment(s): Hiatal hernia, diverticulitis w/ lower GI bleed, gastric stricture/dysphagia w/ dilation, gastric benign polyp, NIDDM type II-no longer on meds since wt loss, R nephrectomy r/t congenital defect, benign thyroid nodules-thyroidectomy, GI bleed in "old stomach" (hx gastric bypass, GI bleed R/T stomach that is not used. (January 2019) History of Any Multi-Drug Resistant Organisms: None Reported Past Surgical History: Adenoidectomy, Bariatric Surgery, Breast Surgery, Cholecystectomy, Hysterectomy, Tonsillectomy, Tubal Ligation Additional Past Surgical History / Comment(s): R nephrectomy/ureterectomy, thyroidectomy, Immanuel en Y gastric bypass 12/2017, EGD with dilation, colonoscopy, hysteroscopy D&C x2, last 06/20/19; Rt breast benign biopsy; 12/2017 Immanuel-en-Y with Dr. Murray Full hysterectomy September2019 Past Anesthesia/Blood Transfusion Reactions: Previous Problems w/ Anesthesia Additional Past Anesthesia/Blood Transfusion Reaction / Comment(s): Hard time awakening from anesthesia Past Psychological History: Anxiety Smoking Status: Former smoker Past Alcohol Use History: None Reported Past Drug Use History: None Reported - Past Family History Father Family Medical History: Cancer Additional Family Medical History / Comment(s): LUNG Mother Family Medical History: Cancer Additional Family Medical History / Comment(s): BREAST Sister(s) Family Medical History: Cancer Additional Family Medical History / Comment(s): 2 SISTER HAD BREAST CANCER Brother(s) Family Medical History: Myocardial Infarction ([place]) Additional Family Medical History / Comment(s): Brother is living. He had a [place] at the age of 50yrs. Medications and Allergies Home Medications Medication Instructions Recorded Confirmed Type buPROPion XL [Wellbutrin XL] 300 mg PO DAILY 07/29/18 11/15/19 History amLODIPine [Norvasc] 10 mg PO DAILY 02/25/19 11/15/19 History Atorvastatin [Lipitor] 10 mg PO DAILY 02/28/19 11/15/19 History Cholecalciferol [Vitamin D3 (25 2,000 unit PO HS 11/12/19 11/15/19 History Mcg = 1000 Iu)] Cyanocobalamin [Vitamin B-12] 500 mcg PO HS 11/12/19 11/15/19 History Levothyroxine Sodium [Euthyrox] 25 mcg PO DAILY 11/12/19 11/15/19 History Levothyroxine Sodium [Euthyrox] 200 mcg PO DAILY 11/12/19 11/15/19 History Magnesium Oxide 400 mg PO DAILY 11/12/19 11/15/19 History Multivitamins, Thera [Multivitamin 1 tab PO DAILY 11/12/19 11/15/19 History (formulary)] Omeprazole [PriLOSEC] 40 mg PO DAILY 11/12/19 11/15/19 History Vitamin A 8,000 unit PO HS 11/12/19 11/15/19 History Zinc Gluconate [Zinc] 50 mg PO HS 11/12/19 11/15/19 History Allergies Allergy/AdvReac Type Severity Reaction Status Date / Time prednisone Allergy Rash/Hives Verified 11/15/19 09:23 Physical Exam Osteopathic Statement: *. No significant issues noted on an osteopathic structural exam other than those noted in the History and Physical/Consult. Vitals: Vital Signs Temp Pulse Pulse Resp BP BP Pulse Ox 11/15/19 10:11 97.7 F 69 16 101/67 97 11/15/19 09:40 76 18 106/88 100 11/15/19 09:35 98.5 F 76 18 106/88 100 11/15/19 08:40 18 11/15/19 07:40 18 11/15/19 07:38 98.5 F 94 18 132/75 100 Intake and Output 11/14/19 11/15/19 11/15/19 22:59 06:59 14:59 Other: Weight 113.398 kg General: Ill appearing, no distress, appears at stated age, Obese Derm: warm, dry Head: atraumatic, normocephalic, symmetric Eyes: EOMI, no lid lag, anicteric sclera, pupils equal round reactive to light ENT: Nose and ears atraumatic, no thrush, no pharyngeal erythema Neck: No thyromegaly, no cervical lymphadenopathy, trachea midline, supple Mouth: no lip lesion, mucus membranes moist Cardiovascular: S1S2 reg, no murmur, positive posterior tibial pulse bilateral, no edema, capillary refill less than 2 seconds Lungs: clear to ascultation bilateral, no ronchi, no rales, no wheeze, no accessory muscle use Abdominal: soft, nontender to palpation, no guarding, no appreciable organomegaly, normal bowel sounds Ext: no gross muscle atrophy, muscle strength muscle strength 5 out of 5 in all 4 extremities, no contractures Neuro: CN II-XI grossly intact, light touch intact all 4 extremities, finger to nose within normal limits, Psych: Alert, oriented, appropriate affect Results CBC & Chem 7: 11/15/19 11:26 11/15/19 08:29 Labs: Abnormal Lab Results - Last 24 Hours (Table) 11/15/19 11/15/19 Range/Units 08:29 11:08 Chloride 109 H (98-107) mmol/L BUN 21 H (7-17) mg/dL Glucose 184 H (74-99) mg/dL POC Glucose (mg/dL) 144 H (75-99) mg/dL Calcium 8.2 L (8.4-10.2) mg/dL Thrombosis Risk Factor Assmnt - DVT/VTE Prophylaxis DVT/VTE Prophylaxis: Mechanical Prophylaxis ordered - Choose All That Apply Any of the Below Risk Factors Present?: Yes Each Factor Represents 1 point: Obesity (BMI >25) Other Risk Factors: Yes Each Risk Factor Represents 2 Points: Age 61-74 years Thrombosis Risk Factor Assessment Total Risk Factor Score: 3 Thrombosis Risk Factor Assessment Level: Moderate Risk Assessment and Plan Assessment: Bright red blood per rectum with probable lower GI bleed - Serial H and H - PPI - IVF - GI and general surgery recs HTN - hold norvasc with low BP - Follow BP DM 2 - no longer on medications - follow with AM Labs HLD - statin Hypothyroidism - Synthroid The patient is admitted with an anticipated greater than 2 midnight stay for evaluation of GI bleed. Surrogate decision-maker: Daughter CODE STATUS:Full DVT prophylaxis: SCDs Discussed with: Patient, nursing, Dr. Cash Anticipated discharge date: 2-[address]: home A total of 45 minutes was spent on the care of this complex patient more than 50% of the time was spent in counseling and care coordination.
[2019-11-15] MEDS: SODIUM CHLORIDE 0.9% 1,000 ML IV SCH ×2 (13:41→20:25)
[2019-11-15] MEDS: buPROPion XL 300 MG TAB.ER.24H PO SCH (13:41)
[2019-11-15] MEDS: LEVOTHYROXINE 25 MCG TAB PO SCH (13:41)
--- NOTE | 2019-11-15 14:24 | P.CNPUL ---
History of Present Illness Consult date: 11/15/19 Requesting physician: Rima Palmer Reason for consult: other (GI bleeding, patient is in the ICU.) Chief complaint: Bright red blood per rectum. History of present illness: This is a 64-year-old female with history of hypertension, previous Immanuel-en-Y gastric bypass surgery by Dr. Dixon. Previous history of lower GI bleeding requiring colonoscopy in 2019, and she was found to have diverticulosis as well as internal and external hemorrhoids. Patient was brought into the ER mostly co mplaining of bright red blood per rectum. Again the patient had similar complaints back in November 11 and November 12, evaluated by surgery, and did not require any intervention. Upon arrival to the ER, patient was noted to have a hemoglobin of 13.5, she was given IV fluids, did not require any blood transfusion. While in the ER the patient had at least a 3 bloody bowel movements with bright red blood. Then arrangements were made to transfer the patient to the ICU, and I was asked to see her on consultation. Her last episode of bright red blood per rectum was 6:30 AM. She had vague abdominal pain, and nausea but presently asymptomatic. Patient did have some lightheadedness earlier today, but presently asymptomatic. Hemoglobin this morning is 12.1 Review of Systems Constitutional: Negative HEENT: Negative Pulmonary: Negative GI: As noted in HPI. Genitourinary: Negative Musculoskeletal: Negative Urologic: Negative Endocrine: History of diabetes. Under control. Hematologic: Mostly GI bleeding,as noted in HPI. Psychiatric: Negative neurologic: Negative Skin: Negative Cardiac: Negative Past Medical History Past Medical History: Diabetes Mellitus, GERD/Reflux, GI Bleed, Hyperlipidemia, Hypertension, Renal Disease, Thyroid Disorder Additional Past Medical History / Comment(s): Hiatal hernia, diverticulitis w/ lower GI bleed, gastric stricture/dysphagia w/ dilation, gastric benign polyp, NIDDM type II-no longer on meds since wt loss, R nephrectomy r/t congenital defect, benign thyroid nodules-thyroidectomy, GI bleed in "old stomach" (hx gastric bypass, GI bleed R/T stomach that is not used. (January 2019) History of Any Multi-Drug Resistant Organisms: None Reported Past Surgical History: Adenoidectomy, Bariatric Surgery, Breast Surgery, Cholecystectomy, Hysterectomy, Tonsillectomy, Tubal Ligation Additional Past Surgical History / Comment(s): R nephrectomy/ureterectomy, thyroidectomy, Immanuel en Y gastric bypass 12/2017, EGD with dilation, colonoscopy, hysteroscopy D&C x2, last 06/20/19; Rt breast benign biopsy; 12/2017 Immanuel-en-Y with Dr. Murray Full hysterectomy September2019 Past Anesthesia/Blood Transfusion Reactions: Previous Problems w/ Anesthesia Additional Past Anesthesia/Blood Transfusion Reaction / Comment(s): Hard time awakening from anesthesia Past Psychological History: Anxiety Smoking Status: Former smoker Past Alcohol Use History: None Reported Past Drug Use History: None Reported - Past Family History Father Family Medical History: Cancer Additional Family Medical History / Comment(s): LUNG Mother Family Medical History: Cancer Additional Family Medical History / Comment(s): BREAST Sister(s) Family Medical History: Cancer Additional Family Medical History / Comment(s): 2 SISTER HAD BREAST CANCER Brother(s) Family Medical History: Myocardial Infarction ([place]) Additional Family Medical History / Comment(s): Brother is living. He had a [place] at the age of 50yrs. Medications and Allergies Home Medications Medication Instructions Recorded Confirmed Type buPROPion XL [Wellbutrin XL] 300 mg PO DAILY 07/29/18 11/15/19 History amLODIPine [Norvasc] 10 mg PO DAILY 02/25/19 11/15/19 History Atorvastatin [Lipitor] 10 mg PO DAILY 02/28/19 11/15/19 History Cholecalciferol [Vitamin D3 (25 2,000 unit PO HS 11/12/19 11/15/19 History Mcg = 1000 Iu)] Cyanocobalamin [Vitamin B-12] 500 mcg PO HS 11/12/19 11/15/19 History Levothyroxine Sodium [Euthyrox] 25 mcg PO DAILY 11/12/19 11/15/19 History Levothyroxine Sodium [Euthyrox] 200 mcg PO DAILY 11/12/19 11/15/19 History Magnesium Oxide 400 mg PO DAILY 11/12/19 11/15/19 History Multivitamins, Thera [Multivitamin 1 tab PO DAILY 11/12/19 11/15/19 History (formulary)] Omeprazole [PriLOSEC] 40 mg PO DAILY 11/12/19 11/15/19 History Vitamin A 8,000 unit PO HS 11/12/19 11/15/19 History Zinc Gluconate [Zinc] 50 mg PO HS 11/12/19 11/15/19 History Allergies Allergy/AdvReac Type Severity Reaction Status Date / Time prednisone Allergy Rash/Hives Verified 11/15/19 09:23 Physical Exam Vitals: Vital Signs Temp Pulse Pulse Resp BP BP Pulse Ox 11/15/19 13:00 66 8 L 105/81 95 11/15/19 12:30 69 6 L 98/72 92 L 11/15/19 12:00 97.9 F 64 11 L 122/76 97 11/15/19 11:30 68 10 L 124/77 96 11/15/19 11:00 124/79 97 11/15/19 10:11 97.7 F 69 16 101/67 97 11/15/19 09:40 76 18 106/88 100 11/15/19 09:35 98.5 F 76 18 106/88 100 11/15/19 08:40 18 11/15/19 07:40 18 11/15/19 07:38 98.5 F 94 18 132/75 100 Intake and Output 11/14/19 11/15/19 11/15/19 22:59 06:59 14:59 Other: Weight 113.398 kg Physical Exam: Revealed a 64-year-old female, pleasant, in no distress. Head: Atraumatic, normocephalic. HEENT:[Neck is supple.] [No neck masses.] [No thyromegaly.] [No JVD.] Chest: [Clear throughout, no crackles, no rhonchi, no wheezes.] Cardiac Exam: [Normal S1 and S2, no S3 gallop, no murmur.] Abdomen: Obese, [Soft, nontender, no megaly, no rebound, no guarding, normal bowel sounds.] Extremities: [No clubbing, no edema, no cyanosis.] Neurological Exam: [No focal neurologic deficit.] Alert and oriented 3. Psychiatric: Normal mood, affect and normal mental status examination. Results - Laboratory Findings CBC and BMP: 11/15/19 11:26 11/15/19 08:29 PT/INR, D-dimer PT 9.9 sec (9.0-12.0) 11/15/19 08:29 INR 0.9 (<1.2) 11/15/19 08:29 Abnormal lab findings: Abnormal Labs 11/15/19 11/15/19 08:29 11:08 Chloride 109 H BUN 21 H Glucose 184 H POC Glucose (mg/dL) 144 H Calcium 8.2 L Assessment and Plan Assessment: Impression: Acute GI bleeding, most likely secondary to diverticulosis unless for otherwise. History of hypertension. History of dyslipidemia. History of hypothyroidism. History of diverticulosis. History of Immanuel-en-Y gastric bypass surgery. Recommendation: Continue to monitor the patient in the ICU. Continue serial hemoglobin and hematocrit. And transfuse if hemoglobin drops below 7. Continue Protonix. GI consultation. Resume home meds, We'll continue to follow Time with Patient: Greater than 30
[2019-11-15 17:43] LABS: HCT 34.5 % (34.0-46.0); MCH 29.8 pg (25.0-35.0); MCV 93.2 fL (80.0-100.0); Mean Platelet Volume 9.2; Platelet Count 147 k/uL (150-450); RDW 13.6 % (11.5-15.5); WBC 7.8 k/uL (3.8-10.6)
[2019-11-15] MEDS: PANTOPRAZOLE 40 MG/10 ML VIAL IVP SCH (20:24)
[2019-11-15] MEDS: VITAMIN A 10,000 UNIT CAPSULE PO SCH (20:24)
[2019-11-15] MEDS: ZINC SULFATE 220 MG CAP PO SCH (20:24)
--- NOTE | 2019-11-15 20:26 | P.CONS ---
History of Present Illness - Reason for Consult Consult date: 11/15/19 Blood per rectum Requesting physician: Rima Palmer - Chief Complaint Blood per rectum - History of Present Illness 64-year-old female with multiple medical comorbidities including Immanuel-en-Y gastric bypass in 2018 for obesity, thyroidectomy, diabetes mellitus type 2, hyperlipidemia, depression, osteoarthritis, vitamin D deficiency and reflux disease who presented to the hospital with complaints of bright red blood per rectum. The patient reports approximately 7 episodes of painless bright red blood per rectum. She denies any nausea or vomiting. She has previously been seen for similar complaints and underwent EGD and colonoscopy on 02/26/2019 significant for negative EGD for source of bleeding with anatomy consistent with Immanuel-en-Y gastric bypass and colonoscopy significant for diffuse diverticulosis and internal and external hemorrhoids. The patient follows with the surgical service. Hemoglobin stable at 12.0 this morning from 13.5 on presentation. Hemodynamically the patient is stable and be monitored in the ICU where she is currently nothing by mouth. Review of Systems REVIEW OF SYSTEMS: CONSTITUTIONAL: Denies any fevers, chills, weight change or fatigue. CARDIOVASCULAR: Denies any chest pain, palpitations high or low blood pressures RESPIRATORY: Denies any shortness of breath, hemoptysis or cough. GENITOURINARY: No dysuria or hematuria. MUSCULOSKELETAL: No weakness reported. SKIN: Denies any new rashes or lesions, jaundice or pallor. PSYCHIATRIC: Denies any depression or anxiety. NEUROLOGY: Denies headache, denies any new focal deficits. EARS/NOSE/THROAT: No recent hearing change, congestion, nasal discharge or sore throat. EYES: No pain in eyes, discharge or change in vision. GASTROINTESTINAL: As per HPI. Past Medical History Past Medical History: Diabetes Mellitus, GERD/Reflux, GI Bleed, Hyperlipidemia, Hypertension, Renal Disease, Thyroid Disorder Additional Past Medical History / Comment(s): Hiatal hernia, diverticulitis w/ lower GI bleed, gastric stricture/dysphagia w/ dilation, gastric benign polyp, NIDDM type II-no longer on meds since wt loss, R nephrectomy r/t congenital defect, benign thyroid nodules-thyroidectomy, GI bleed in "old stomach" (hx gastric bypass, GI bleed R/T stomach that is not used. (January 2019) History of Any Multi-Drug Resistant Organisms: None Reported Past Surgical History: Adenoidectomy, Bariatric Surgery, Breast Surgery, Cholecystectomy, Hysterectomy, Tonsillectomy, Tubal Ligation Additional Past Surgical History / Comment(s): R nephrectomy/ureterectomy, thyroidectomy, Immanuel en Y gastric bypass 12/2017, EGD with dilation, colonoscopy, hysteroscopy D&C x2, last 06/20/19; Rt breast benign biopsy; 12/2017 Immanuel-en-Y with Dr. Murray Full hysterectomy September2019 Past Anesthesia/Blood Transfusion Reactions: Previous Problems w/ Anesthesia Additional Past Anesthesia/Blood Transfusion Reaction / Comm: Hard time awakening from anesthesia Past Psychological History: Anxiety Smoking Status: Former smoker Past Alcohol Use History: None Reported Past Drug Use History: None Reported - Past Family History Father Family Medical History: Cancer Additional Family Medical History / Comment(s): LUNG Mother Family Medical History: Cancer Additional Family Medical History / Comment(s): BREAST Sister(s) Family Medical History: Cancer Additional Family Medical History / Comment(s): 2 SISTER HAD BREAST CANCER Brother(s) Family Medical History: Myocardial Infarction ([place]) Additional Family Medical History / Comment(s): Brother is living. He had a [place] at the age of 50yrs. Medications and Allergies Home Medications Medication Instructions Recorded Confirmed Type buPROPion XL [Wellbutrin XL] 300 mg PO DAILY 07/29/18 11/15/19 History amLODIPine [Norvasc] 10 mg PO DAILY 02/25/19 11/15/19 History Atorvastatin [Lipitor] 10 mg PO DAILY 02/28/19 11/15/19 History Cholecalciferol [Vitamin D3 (25 2,000 unit PO HS 11/12/19 11/15/19 History Mcg = 1000 Iu)] Cyanocobalamin [Vitamin B-12] 500 mcg PO HS 11/12/19 11/15/19 History Levothyroxine Sodium [Euthyrox] 25 mcg PO DAILY 11/12/19 11/15/19 History Levothyroxine Sodium [Euthyrox] 200 mcg PO DAILY 11/12/19 11/15/19 History Magnesium Oxide 400 mg PO DAILY 11/12/19 11/15/19 History Multivitamins, Thera [Multivitamin 1 tab PO DAILY 11/12/19 11/15/19 History (formulary)] Omeprazole [PriLOSEC] 40 mg PO DAILY 11/12/19 11/15/19 History Vitamin A 8,000 unit PO HS 11/12/19 11/15/19 History Zinc Gluconate [Zinc] 50 mg PO HS 11/12/19 11/15/19 History Allergies Allergy/AdvReac Type Severity Reaction Status Date / Time prednisone Allergy Rash/Hives Verified 11/15/19 09:23 Physical Exam Vitals: Vital Signs Temp Pulse Pulse Resp BP BP Pulse Ox 11/15/19 10:11 97.7 F 69 16 101/67 97 11/15/19 09:40 76 18 106/88 100 11/15/19 09:35 98.5 F 76 18 106/88 100 11/15/19 08:40 18 11/15/19 07:40 18 11/15/19 07:38 98.5 F 94 18 132/75 100 Intake and Output 11/14/19 11/15/19 11/15/19 22:59 06:59 14:59 Other: Weight 113.398 kg On physical examination, patient appears comfortable in no apparent distress. HEAD: Normocephalic, atraumatic. EYES: No scleral icterus. No conjunctival injection. MOUTH: No lesions, tongue midline. NECK: Trachea midline, no gross abnormalities. CHEST: Clear to auscultation with no wheezing or rhonchi appreciated. HEART: Regular rate and rhythm. ABDOMEN: Soft, obese. Bowel sounds are positive. No organomegaly. No guarding or rigidity. EXTREMITIES: No pedal edema. SKIN: No rashes, no jaundice. NEUROLOGIC: Alert and oriented x3. No focal deficits. Results CBC & Chem 7: 11/15/19 17:06 11/15/19 08:29 Labs: Abnormal Lab Results - Last 24 Hours (Table) 11/15/19 11/15/19 Range/Units 08:29 11:08 Chloride 109 H (98-107) mmol/L BUN 21 H (7-17) mg/dL Glucose 184 H (74-99) mg/dL POC Glucose (mg/dL) 144 H (75-99) mg/dL Calcium 8.2 L (8.4-10.2) mg/dL Assessment and Plan (1) Lower GI bleed Narrative/Plan: 64-year-old female with multiple medical comorbidities including diverticulosis, hemorrhoids and prior Immanuel-en-Y gastric bypass in 2018 and presented to the hospital with multiple episodes of painless bright red blood per rectum. Hemoglobin stable at 12.0 today. Hemodynamically stable. She is in the ICU for monitoring and currently nothing by mouth except for ice chips and water. She denies any pain with the episode. Last time she bled was early in the morning. She previously underwent investigation with the surgical service with EGD showing anatomy consistent with previous Immanuel-en-Y after bypass and no source of bleeding noted and colonoscopy showing diffuse diverticulosis and internal and external hemorrhoids on evaluation in 01/2019. Unclear etiology, likely related to diverticular bleed, differential also includes hemorrhoidal bleeding, AVM, or other source of GI bleeding. Current Visit: Yes Status: Acute Code(s): K92.2 - GASTROINTESTINAL HEMORRHAGE, UNSPECIFIED SNOMED Code(s): 18441452 (2) Anemia associated with acute blood loss Current Visit: No Status: Acute Code(s): D62 - ACUTE POSTHEMORRHAGIC ANEMIA SNOMED Code(s): 798317238 (3) Hematochezia Current Visit: No Status: Acute Code(s): K92.1 - MELENA SNOMED Code(s): 825335823 Plan: Supportive care Continue to monitor hemoglobin and hematocrit and transfuse as needed Nothing by mouth except for ice chips and sips of water IV fluid hydration No plans for endoscopic evaluation at this time Surgical service following the patient was under the management in the setting of prior gastric bypass and endoscopic evaluation with the service in 01/2019 Thank you for allowing us to participate in the care of the patient
[2019-11-15 23:19] LABS: HCT 35.6 % (34.0-46.0); HGB 11.4 gm/dL (11.4-16.0); MCH 30.1 pg (25.0-35.0); MCV 93.9 fL (80.0-100.0); Mean Platelet Volume 9.8; Platelet Count 144 k/uL (150-450); RBC 3.79 m/uL (3.80-5.40); RDW 13.6 % (11.5-15.5); WBC 11.4 k/uL (3.8-10.6)
[2019-11-16 04:53] LABS: HCT 34.6 % (34.0-46.0); HGB 11.2 gm/dL (11.4-16.0); MCH 30.5 pg (25.0-35.0); MCHC 32.3 g/dL (31.0-37.0); MCV 94.6 fL (80.0-100.0); Platelet Count 153 k/uL (150-450); RBC 3.66 m/uL (3.80-5.40); RDW 13.6 % (11.5-15.5); WBC 10.2 k/uL (3.8-10.6)
[2019-11-16 05:01] LABS: Calcium 7.6 mg/dL (8.4-10.2); Potassium 3.6 mmol/L (3.5-5.1)
[2019-11-16] MEDS ORDERED: POTASSIUM CHLORIDE ER 20 MEQ TAB.ER PO STA (06:22)
[2019-11-16] MEDS: SODIUM CHLORIDE 0.9% 1,000 ML IV SCH ×2 (06:29→15:38)
[2019-11-16] MEDS: LEVOTHYROXINE 100 MCG TAB PO SCH (06:30)
[2019-11-16] MEDS: LEVOTHYROXINE 25 MCG TAB PO SCH (06:30)
[2019-11-16] MEDS ORDERED: PANTOPRAZOLE 40 MG TABLET PO SCH (07:30)
[2019-11-16] MEDS: buPROPion XL 300 MG TAB.ER.24H PO SCH (08:56)
[2019-11-16] MEDS: MAGNESIUM OXIDE 400 MG TAB PO SCH (08:56)
[2019-11-16] MEDS: MULTIVITAMINS, THERA 1 EACH TAB PO SCH (08:56)
[2019-11-16] MEDS: ATORVASTATIN 10 MG TAB PO SCH (08:56)
--- NOTE | 2019-11-16 12:04 | P.GSCN ---
History of Present Illness Consult date: 11/16/19 Reason for Consult: GI bleed History of present illness: This is a 64-year-old female who has had previous Immanuel-en-Y gastric bypass by Dr. Dixon. Patient was recently seen by Dr. Dixon for lower GI bleed. Patient has had some evidence of rectal bleeding. She was transferred to the ICU yesterday after being admitted for GI bleed. Patient probably had some bloody bowel movements. Patient has undergone previous colonoscopy 2019 is found have evidence of diverticular disease as well as internal and external hemorrhoids. Patient had 3 bloody bowel movement yesterday. Her he will this morning is 12.1. She appears to be asymptomatic. Past Medical History Past Medical History: Diabetes Mellitus, GERD/Reflux, GI Bleed, Hyperlipidemia, Hypertension, Renal Disease, Thyroid Disorder Additional Past Medical History / Comment(s): Hiatal hernia, diverticulitis w/ l ower GI bleed, gastric stricture/dysphagia w/ dilation, gastric benign polyp, NIDDM type II-no longer on meds since wt loss, R nephrectomy r/t congenital defect, benign thyroid nodules-thyroidectomy, GI bleed in "old stomach" (hx gastric bypass, GI bleed R/T stomach that is not used. (January 2019) History of Any Multi-Drug Resistant Organisms: None Reported Past Surgical History: Adenoidectomy, Bariatric Surgery, Breast Surgery, Cholecystectomy, Hysterectomy, Tonsillectomy, Tubal Ligation Additional Past Surgical History / Comment(s): R nephrectomy/ureterectomy, thyroidectomy, Immanuel en Y gastric bypass 12/2017, EGD with dilation, colonoscopy, hysteroscopy D&C x2, last 06/20/19; Rt breast benign biopsy; 12/2017 Immanuel-en-Y with Dr. Murray Full hysterectomy September2019 Past Anesthesia/Blood Transfusion Reactions: Previous Problems w/ Anesthesia Additional Past Anesthesia/Blood Transfusion Reaction / Comm: Hard time awakening from anesthesia Past Psychological History: Anxiety Smoking Status: Former smoker Past Alcohol Use History: None Reported Past Drug Use History: None Reported - Past Family History Father Family Medical History: Cancer Additional Family Medical History / Comment(s): LUNG Mother Family Medical History: Cancer Additional Family Medical History / Comment(s): BREAST Sister(s) Family Medical History: Cancer Additional Family Medical History / Comment(s): 2 SISTER HAD BREAST CANCER Brother(s) Family Medical History: Myocardial Infarction ([place]) Additional Family Medical History / Comment(s): Brother is living. He had a [place] at the age of 50yrs. Medications and Allergies Home Medications Medication Instructions Recorded Confirmed Type buPROPion XL [Wellbutrin XL] 300 mg PO DAILY 07/29/18 11/15/19 History amLODIPine [Norvasc] 10 mg PO DAILY 02/25/19 11/15/19 History Atorvastatin [Lipitor] 10 mg PO DAILY 02/28/19 11/15/19 History Cholecalciferol [Vitamin D3 (25 2,000 unit PO HS 11/12/19 11/15/19 History Mcg = 1000 Iu)] Cyanocobalamin [Vitamin B-12] 500 mcg PO HS 11/12/19 11/15/19 History Levothyroxine Sodium [Euthyrox] 25 mcg PO DAILY 11/12/19 11/15/19 History Levothyroxine Sodium [Euthyrox] 200 mcg PO DAILY 11/12/19 11/15/19 History Magnesium Oxide 400 mg PO DAILY 11/12/19 11/15/19 History Multivitamins, Thera [Multivitamin 1 tab PO DAILY 11/12/19 11/15/19 History (formulary)] Omeprazole [PriLOSEC] 40 mg PO DAILY 11/12/19 11/15/19 History Vitamin A 8,000 unit PO HS 11/12/19 11/15/19 History Zinc Gluconate [Zinc] 50 mg PO HS 11/12/19 11/15/19 History Allergies Allergy/AdvReac Type Severity Reaction Status Date / Time prednisone Allergy Rash/Hives Verified 11/15/19 09:23 Surgical - Exam Vital Signs Temp Pulse Resp BP Pulse Ox 98.5 F 94 18 132/75 100 11/15/19 07:38 11/15/19 07:38 11/15/19 07:38 11/15/19 07:38 11/15/19 07:38 - General well developed, well nourished, no distress - Eyes PERRL - ENT normal pinna - Neck no masses - Respiratory normal expansion - Cardiovascular Rhythm: regular - Abdomen Abdomen: soft, non tender Results - Labs 11/16/19 04:24 11/16/19 04:24 Abnormal Lab Results - Last 24 Hours (Table) 11/15/19 11/15/19 11/16/19 Range/Units 17:06 23:09 04:24 WBC 11.4 H (3.8-10.6) k/uL RBC 3.70 L 3.79 L (3.80-5.40) m/uL Hgb 11.0 L (11.4-16.0) gm/dL Plt Count 147 L 144 L (150-450) k/uL Chloride 112 H (98-107) mmol/L BUN 18 H (7-17) mg/dL Glucose 116 H (74-99) mg/dL Calcium 7.6 L (8.4-10.2) mg/dL 11/16/19 Range/Units 04:24 WBC (3.8-10.6) k/uL RBC 3.66 L (3.80-5.40) m/uL Hgb 11.2 L (11.4-16.0) gm/dL Plt Count (150-450) k/uL Chloride (98-107) mmol/L BUN (7-17) mg/dL Glucose (74-99) mg/dL Calcium (8.4-10.2) mg/dL Diabetes panel 11/16/19 Range/Units 04:24 Sodium 138 (137-145) mmol/L Potassium 3.6 (3.5-5.1) mmol/L Chloride 112 H (98-107) mmol/L Carbon Dioxide 22 (22-30) mmol/L BUN 18 H (7-17) mg/dL Creatinine 0.94 (0.52-1.04) mg/dL Glucose 116 H (74-99) mg/dL Calcium 7.6 L (8.4-10.2) mg/dL Calcium panel 11/16/19 Range/Units 04:24 Calcium 7.6 L (8.4-10.2) mg/dL Pituitary panel 11/16/19 Range/Units 04:24 Sodium 138 (137-145) mmol/L Potassium 3.6 (3.5-5.1) mmol/L Chloride 112 H (98-107) mmol/L Carbon Dioxide 22 (22-30) mmol/L BUN 18 H (7-17) mg/dL Creatinine 0.94 (0.52-1.04) mg/dL Glucose 116 H (74-99) mg/dL Calcium 7.6 L (8.4-10.2) mg/dL Adrenal panel 11/16/19 Range/Units 04:24 Sodium 138 (137-145) mmol/L Potassium 3.6 (3.5-5.1) mmol/L Chloride 112 H (98-107) mmol/L Carbon Dioxide 22 (22-30) mmol/L BUN 18 H (7-17) mg/dL Creatinine 0.94 (0.52-1.04) mg/dL Glucose 116 H (74-99) mg/dL Calcium 7.6 L (8.4-10.2) mg/dL Assessment and Plan Assessment: History of lower GI bleed. Patient will be observed. Dr. Dixon will resume her care tomorrow.
--- NOTE | 2019-11-16 13:00 | P.PN ---
Subjective Progress Note Date: 11/16/19 Principal diagnosis: Acute GI bleeding with bright red blood per rectum This is a 64-year-old female with history of hypertension, previous Immanuel-en-Y gastric bypass surgery by Dr. Dixon. Previous history of lower GI bleeding requiring colonoscopy in 2019, and she was found to have diverticulosis as well as internal and external hemorrhoids. Patient was brought into the ER mostly complaining of bright red blood per rectum. Again the patient had similar complaints back in November 11 and November 12, evaluated by surgery, and did not require any intervention. Upon arrival to the ER, patient was noted to have a hemoglobin of 13.5, she was given IV fluids, did not require any blood transfusion. While in the ER the patient had at least a 3 bloody bowel movements with bright red blood. Then arrangements were made to transfer the patient to the ICU, and I was asked to see her on consultation. Her last episode of bright red blood per rectum was 6:30 AM. She had vague abdominal pain, and nausea but presently asymptomatic. Patient did have some lightheadedness earlier today, but presently asymptomatic. Hemoglobin this morning is 12.1 Patient was reevaluated today on 11/16/19, remains in the ICU, doing well, hemodynamically stable, no significant drop in her hemoglobin, had few maroon color stools. Hemoglobin today 11.2, and it was 11.0 yesterday. Did not require any blood transfusions. Patient had 3 bloody bowel movements yesterday. And overall she remains quite stable, seen by surgery on the case, and recommended conservative measures. Objective - Vital Signs Vital signs: Vital Signs Temp 98.2 F 11/16/19 08:00 Pulse 71 11/16/19 08:00 Resp 12 11/16/19 08:00 BP 118/75 11/16/19 08:00 Pulse Ox 96 11/16/19 07:00 Intake & Output 11/15/19 11/16/19 11/16/19 18:59 06:59 18:59 Intake Total 720 1440 120 Output Total 300 Balance 720 1140 120 Weight 113.398 kg 110.1 kg Intake: IV 720 1440 120 Sodium Chloride 0.9% 1, 720 1440 120 000 ml @ 120 mls/hr IV . Q8H20M [facility] Rx#:[id number] Output: Urine 300 Other: # Voids 1 1 # Bowel Movements 1 - Exam Physical Exam: Revealed a 64-year-old female, pleasant, in no distress. Head: Atraumatic, normocephalic. HEENT:[Neck is supple.] [No neck masses.] [No thyromegaly.] [No JVD.] Chest: [Clear throughout, no crackles, no rhonchi, no wheezes.] Cardiac Exam: [Normal S1 and S2, no S3 gallop, no murmur.] Abdomen: Obese, [Soft, nontender, no megaly, no rebound, no guarding, normal bowel sounds.] Extremities: [No clubbing, no edema, no cyanosis.] Neurological Exam: [No focal neurologic deficit.] Alert and oriented 3. Psychiatric: Normal mood, affect and normal mental status examination. - Labs CBC & Chem 7: 11/16/19 04:24 11/16/19 04:24 Labs: Abnormal Lab Results - Last 24 Hours (Table) 11/15/19 11/15/19 11/16/19 Range/Units 17:06 23:09 04:24 WBC 11.4 H (3.8-10.6) k/uL RBC 3.70 L 3.79 L (3.80-5.40) m/uL Hgb 11.0 L (11.4-16.0) gm/dL Plt Count 147 L 144 L (150-450) k/uL Chloride 112 H (98-107) mmol/L BUN 18 H (7-17) mg/dL Glucose 116 H (74-99) mg/dL Calcium 7.6 L (8.4-10.2) mg/dL 11/16/19 Range/Units 04:24 WBC (3.8-10.6) k/uL RBC 3.66 L (3.80-5.40) m/uL Hgb 11.2 L (11.4-16.0) gm/dL Plt Count (150-450) k/uL Chloride (98-107) mmol/L BUN (7-17) mg/dL Glucose (74-99) mg/dL Calcium (8.4-10.2) mg/dL Assessment and Plan Assessment: Impression: Acute GI bleeding, most likely secondary to diverticulosis unless for otherwise. History of hypertension. History of dyslipidemia. History of hypothyroidism. History of diverticulosis. History of Immanuel-en-Y gastric bypass surgery. Recommendation: Transfer patient to a regular medical floor. Continue to monitor hemoglobin and hematocrit once or twice a day at the most. Continue Protonix. Resume home meds, We'll continue to follow as needed Time with Patient: Less than 30
--- NOTE | 2019-11-16 16:25 | P.PN ---
Subjective Progress Note Date: 11/16/19 Patient was seen and examined. No acute events overnight. No bowel movements today. Patient denies any chest pain, shortness breath or palpitations. No nausea or vomiting. No dizziness. No fever or chills. Hemoglobin stable at 11.2. Objective - Vital Signs Vital signs: Vital Signs Temp 98.2 F 11/16/19 15:00 Pulse 71 11/16/19 08:00 Resp 18 11/16/19 15:00 BP 134/75 11/16/19 15:00 Pulse Ox 96 11/16/19 15:00 Intake & Output 11/15/19 11/16/19 11/16/19 18:59 06:59 18:59 Intake Total 720 1440 840 Output Total 300 Balance 720 1140 840 Weight 113.398 kg 110.1 kg Intake: IV 720 1440 840 Sodium Chloride 0.9% 1, 720 1440 840 000 ml @ 120 mls/hr IV . Q8H20M [facility] Rx#:[id number] Output: Urine 300 Other: # Voids 1 3 # Bowel Movements 1 - Exam General: [non toxic], [no distress], [appears at stated age] Derm: [warm], [dry] Head: [atraumatic], [normocephalic], [symmetric] Eyes: [EOMI], [no lid lag], [anicteric sclera] Mouth: [no lip lesion], [mucus membranes moist] Cardiovascular: [S1S2 reg], [no murmur], [positive posterior tibial pulse bilateral], Lungs: [CTA bilateral], [no rhonchi, no rales] , [no accessory muscle use] Abdominal: [soft], [ nontender to palpation], [no guarding], [no appreciable organomegaly] Ext: [no gross muscle atrophy], [no edema], [no contractures] Neuro: [ CN II-XI grossly intact], [no focal neuro deficits] Psych: [Alert], [oriented], [appropriate affect] - Labs CBC & Chem 7: 11/16/19 04:24 11/16/19 04:24 Labs: Abnormal Lab Results - Last 24 Hours (Table) 11/15/19 11/15/19 11/16/19 Range/Units 17:06 23:09 04:24 WBC 11.4 H (3.8-10.6) k/uL RBC 3.70 L 3.79 L (3.80-5.40) m/uL Hgb 11.0 L (11.4-16.0) gm/dL Plt Count 147 L 144 L (150-450) k/uL Chloride 112 H (98-107) mmol/L BUN 18 H (7-17) mg/dL Glucose 116 H (74-99) mg/dL Calcium 7.6 L (8.4-10.2) mg/dL 11/16/19 Range/Units 04:24 WBC (3.8-10.6) k/uL RBC 3.66 L (3.80-5.40) m/uL Hgb 11.2 L (11.4-16.0) gm/dL Plt Count (150-450) k/uL Chloride (98-107) mmol/L BUN (7-17) mg/dL Glucose (74-99) mg/dL Calcium (8.4-10.2) mg/dL Assessment and Plan Assessment: Bright red blood per rectum with probable lower GI bleed - Serial H and H - PPI -DC IVF and encourage hydration by mouth - GI and general surgery recs Elevated BUN -Likely related to GI bleed -Avoid nephrotoxins -Repeat BMP tomorrow morning HTN - hold norvasc with low BP - Follow BP DM 2 - no longer on medications - follow with AM Labs HLD - statin Hypothyroidism - Synthroid [Patient admitted for active GI bleed. Hemoglobin stable. Continue to monitor. Surgery consultation pending. Likely DC 1-2 days.]
[2019-11-16] MEDS: PANTOPRAZOLE 40 MG/10 ML VIAL IVP SCH (18:50)
[2019-11-16] MEDS: ZINC SULFATE 220 MG CAP PO SCH (20:44)
[2019-11-16] MEDS: VITAMIN A 10,000 UNIT CAPSULE PO SCH (20:44)
[2019-11-16] MEDS: FAMOTIDINE 20 MG/2 ML VIAL IV SCH (20:44)
--- NOTE | 2019-11-16 20:54 | P.PN ---
Subjective Progress Note Date: 11/16/19 Principal diagnosis: Blood per rectum Patient is seen sitting bedside today reporting a further episode of blood per rectum. No abdominal pain reported. Objective - Vital Signs Vital signs: Vital Signs Temp 98.2 F 11/16/19 08:00 Pulse 71 11/16/19 08:00 Resp 12 11/16/19 08:00 BP 118/75 11/16/19 08:00 Pulse Ox 96 11/16/19 07:00 Intake & Output 11/15/19 11/16/19 11/16/19 18:59 06:59 18:59 Intake Total 720 1440 120 Output Total 300 Balance 720 1140 120 Weight 113.398 kg 110.1 kg Intake: IV 720 1440 120 Sodium Chloride 0.9% 1, 720 1440 120 000 ml @ 120 mls/hr IV . Q8H20M [facility] Rx#:[id number] Output: Urine 300 Other: # Voids 1 1 # Bowel Movements 1 - Exam On physical examination, patient appears comfortable in no apparent distress. HEAD: Normocephalic, atraumatic. EYES: No scleral icterus. No conjunctival injection. MOUTH: No lesions, tongue midline. NECK: Trachea midline, no gross abnormalities. ABDOMEN: Soft, obese. Bowel sounds are positive. No organomegaly. No guarding or rigidity. EXTREMITIES: No pedal edema. SKIN: No rashes, no jaundice. NEUROLOGIC: Alert and oriented x3. No focal deficits. - Labs CBC & Chem 7: 11/16/19 04:24 11/16/19 04:24 Labs: Abnormal Lab Results - Last 24 Hours (Table) 11/15/19 11/15/19 11/15/19 Range/Units 11:08 17:06 23:09 WBC 11.4 H (3.8-10.6) k/uL RBC 3.70 L 3.79 L (3.80-5.40) m/uL Hgb 11.0 L (11.4-16.0) gm/dL Plt Count 147 L 144 L (150-450) k/uL Chloride (98-107) mmol/L BUN (7-17) mg/dL Glucose (74-99) mg/dL POC Glucose (mg/dL) 144 H (75-99) mg/dL Calcium (8.4-10.2) mg/dL 11/16/19 11/16/19 Range/Units 04:24 04:24 WBC (3.8-10.6) k/uL RBC 3.66 L (3.80-5.40) m/uL Hgb 11.2 L (11.4-16.0) gm/dL Plt Count (150-450) k/uL Chloride 112 H (98-107) mmol/L BUN 18 H (7-17) mg/dL Glucose 116 H (74-99) mg/dL POC Glucose (mg/dL) (75-99) mg/dL Calcium 7.6 L (8.4-10.2) mg/dL Assessment and Plan (1) Lower GI bleed Narrative/Plan: 64-year-old female with multiple medical comorbidities including diverticulosis, hemorrhoids and prior Immanuel-en-Y gastric bypass in 2017 and presented to the hospital with multiple episodes of painless bright red blood per rectum. Hemogl obin stable at 12.0 today. Hemodynamically stable. She is in the ICU for monitoring and currently nothing by mouth except for ice chips and water. She denies any pain with the episode. Last time she bled was early in the morning. She previously underwent investigation with the surgical service with EGD showing anatomy consistent with previous Immanuel-en-Y after bypass and no source of bleeding noted and colonoscopy showing diffuse diverticulosis and internal and external hemorrhoids on evaluation in 01/2019. Unclear etiology, likely related to diverticular bleed, differential also includes hemorrhoidal bleeding, AVM, or other source of GI bleeding. Current Visit: Yes Status: Acute Code(s): K92.2 - GASTROINTESTINAL HEMORRHAGE, UNSPECIFIED SNOMED Code(s): 00050901 (2) Anemia associated with acute blood loss Current Visit: No Status: Acute Code(s): D62 - ACUTE POSTHEMORRHAGIC ANEMIA SNOMED Code(s): 981730909 (3) Hematochezia Current Visit: No Status: Acute Code(s): K92.1 - MELENA SNOMED Code(s): 067013744 Plan: Supportive care Continue to monitor hemoglobin and hematocrit and transfuse as needed Okay for liquid diet IV fluid hydration No plans for endoscopic evaluation at this time Surgical service following the patient was under the management in the setting of prior gastric bypass and endoscopic evaluation with the service in 01/2019 Thank you for allowing us to participate in the care of the patient
[2019-11-17] MEDS: LEVOTHYROXINE 100 MCG TAB PO SCH (05:08)
[2019-11-17] MEDS: LEVOTHYROXINE 25 MCG TAB PO SCH (05:08)
[2019-11-17] MEDS: MAGNESIUM OXIDE 400 MG TAB PO SCH (07:36)
[2019-11-17] MEDS: MULTIVITAMINS, THERA 1 EACH TAB PO SCH (07:36)
[2019-11-17] MEDS: buPROPion XL 300 MG TAB.ER.24H PO SCH (07:37)
[2019-11-17] MEDS: FAMOTIDINE 20 MG/2 ML VIAL IV SCH ×2 (07:37→20:31)
[2019-11-17] MEDS: ATORVASTATIN 10 MG TAB PO SCH (07:37)
[2019-11-17 08:07] LABS: Calcium 7.6 mg/dL (8.4-10.2); Potassium 3.8 mmol/L (3.5-5.1)
[2019-11-17 08:46] LABS: HCT 31.2 % (34.0-46.0); HGB 10.2 gm/dL (11.4-16.0); MCH 30.7 pg (25.0-35.0); MCHC 32.7 g/dL (31.0-37.0); MCV 93.7 fL (80.0-100.0); Mean Platelet Volume 9.2; Platelet Count 143 k/uL (150-450); RBC 3.33 m/uL (3.80-5.40); RDW 13.9 % (11.5-15.5); WBC 6.6 k/uL (3.8-10.6)
--- NOTE | 2019-11-17 12:02 | P.PN ---
<ElsaIgnacio rodriguezin - Last Filed: 11/17/19 11:54> Subjective Progress Note Date: 11/17/19 CHIEF COMPLAINT: GI bleed HISTORY OF PRESENT ILLNESS: Patient reports having 5 bloody bowel movements in the ER when she presented. She had another bloody red movement this morning. Hemoglobin dropped from 11.2-10.2. She is afebrile. She did have some epigastric abdominal cramping earlier. She denies any nausea or vomiting. PHYSICAL EXAM: VITAL SIGNS: Reviewed. GENERAL: Well-developed in no acute distress. HEENT: No sclera icterus. Extraocular movements grossly intact. Moist buccal mucosa. Head is atraumatic, normocephalic. ABDOMEN: Soft. Nondistended. Nontender. NEUROLOGIC: Alert and oriented. Cranial nerves II through XII grossly intact. ASSESSMENT: 1. Acute GI bleed 2. Acute blood loss anemia secondary to GI bleed 3. History of Immanuel-en-Y 4. History of diverticulosis and episodes of diverticulitis PLAN: -Schedule patient for tagged RBC scan -Patient scheduled for EGD and colonoscopy with Dr. Murray on Sunday -Continue monitor CBC daily -Discontinue vitamin A and multivitamin due to increased risk of bleeding -Continue IV Pepcid Physician Corporate Attorney note has been reviewed by physician. Signing provider agrees with the documented findings, assessment, and plan of care. Objective - Vital Signs Vital signs: Vital Signs Temp 98.4 F 11/17/19 07:00 Pulse 67 11/17/19 07:00 Resp 16 11/17/19 07:00 BP 119/79 11/17/19 07:00 Pulse Ox 97 11/17/19 07:00 Intake & Output 11/16/19 11/17/19 11/17/19 18:59 06:59 18:59 Intake Total 840 1320 Balance 840 1320 Intake: IV 840 360 Sodium Chloride 0.9% 1, 840 360 000 ml @ 120 mls/hr IV . Q8H20M [facility] Rx#:[id number] Intake, IV Titration 960 Amount Sodium Chloride 0.9% 1, 960 000 ml @ 120 mls/hr IV . Q8H20M [facility] Rx#:[id number] Other: Voiding Method Toilet Toilet Toilet # Voids 1 3 - Labs CBC & Chem 7: 11/17/19 07:04 11/17/19 07:04 Labs: Abnormal Lab Results - Last 24 Hours (Table) 11/17/19 11/17/19 Range/Units 07:04 07:04 RBC 3.33 L (3.80-5.40) m/uL Hgb 10.2 L (11.4-16.0) gm/dL Hct 31.2 L (34.0-46.0) % Plt Count 143 L (150-450) k/uL Chloride 111 H (98-107) mmol/L Calcium 7.6 L (8.4-10.2) mg/dL <Qian Murray N - Last Filed: 11/20/19 22:50> Subjective Patient seen and evaluated with above. Please see additional recommendations below. HISTORY OF PRESENT ILLNESS: Laura Bishop is a 64-year-old female presents for second hospitalization in 2 weeks due to gastrointestinal bleed. She reports epigastric discomfort especially with antacids such as Protonix. She reports recent gastrointestinal bleed earlier today, without severe abdominal cramps. She has pre-existing history of diverticulosis. PHYSICAL EXAM: VITAL SIGNS: Reviewed GENERAL: Well-developed female in no acute distress. HEENT: No scleral icterus. Extraocular movements grossly intact. Hears conversational speech. No nasal drainage. CHEST: Nonlabored respirations with equal bilateral excursions. CARDIOVASCULAR: Distal 2+ pulses. ABDOMEN: Soft, Nondistended. No hernias. Minimal epigastric tenderness. No peritonitis. MUSCULOSKELETAL: No clubbing, cyanosis. NEURO: No focal or lateralizing signs. Cranial nerves 2 through 12 grossly within normal limits. PSYCH: Appropriate affect. Alert and oriented to person, place and time. SKIN: Good skin turgor. Well perfused. LABS: Reviewed. Hemoglobin down 11.2-10.2. ASSESSMENT: 1. Gastrointestinal bleeding PLAN: 1. Recommend tagged RBC study to identify source of bleeding as she had an acute episode 2. Nothing by mouth pending completion of study 3. Will proceed with upper and lower endoscopy for recurrent bleeding 4. Medical reconciliation performed with discontinuing of medications or supplements that may prolong bleeding or exacerbate bleeding such as multivitamins, vitamin A, vitamin D Objective - Vital Signs Vital signs: Vital Signs Temp 98.0 F 11/20/19 07:00 Pulse 64 11/20/19 07:00 Resp 16 11/20/19 07:00 BP 128/74 11/20/19 07:00 Pulse Ox 95 11/20/19 07:00 Intake & Output 11/20/19 11/20/19 11/21/19 06:59 18:59 06:59 Intake Total 200 Balance 200 Intake: Oral 200 Other: Voiding Method Toilet # Voids 2 3 - Labs CBC & Chem 7: 11/20/19 07:00 11/20/19 07:00 Labs: Abnormal Lab Results - Last 24 Hours (Table) 11/20/19 11/20/19 Range/Units 07:00 07:00 RBC 3.37 L (3.80-5.40) m/uL Hgb 10.4 L (11.4-16.0) gm/dL Hct 31.5 L (34.0-46.0) % Potassium 3.4 L (3.5-5.1) mmol/L Chloride 111 H (98-107) mmol/L Glucose 101 H (74-99) mg/dL Calcium 7.9 L (8.4-10.2) mg/dL Total Protein 5.3 L (6.3-8.2) g/dL Albumin 3.0 L (3.5-5.0) g/dL Assessment and Plan (1) Anemia Status: Acute Code(s): D64.9 - ANEMIA, UNSPECIFIED SNOMED Code(s): 840065479 (2) Anemia associated with acute blood loss Status: Acute Code(s): D62 - ACUTE POSTHEMORRHAGIC ANEMIA SNOMED Code(s): 352097688 (3) GI bleed Status: Acute Code(s): K92.2 - GASTROINTESTINAL HEMORRHAGE, UNSPECIFIED SNOMED Code(s): 71670812 (4) Hematochezia Status: Acute Code(s): K92.1 - MELENA SNOMED Code(s): 987547712
--- NOTE | 2019-11-17 12:41 | P.PN ---
Subjective Progress Note Date: 11/17/19 Patient was seen and examined. No acute events overnight. Bloody bowel movement overnight. Patient denies any chest pain, shortness breath or palpitations. No nausea or vomiting. No dizziness. No fever or chills. Hemoglobin stable at 10.2. Objective - Vital Signs Vital signs: Vital Signs Temp 98.4 F 11/17/19 07:00 Pulse 67 11/17/19 07:00 Resp 16 11/17/19 07:00 BP 119/79 11/17/19 07:00 Pulse Ox 97 11/17/19 07:00 Intake & Output 11/16/19 11/17/19 11/17/19 18:59 06:59 18:59 Intake Total 840 1320 Balance 840 1320 Intake: IV 840 360 Sodium Chloride 0.9% 1, 840 360 000 ml @ 120 mls/hr IV . Q8H20M [facility] Rx#:[id number] Intake, IV Titration 960 Amount Sodium Chloride 0.9% 1, 960 000 ml @ 120 mls/hr IV . Q8H20M [facility] Rx#:[id number] Other: Voiding Method Toilet Toilet Toilet # Voids 1 3 - Exam General: [non toxic], [no distress], [appears at stated age] Derm: [warm], [dry] Head: [atraumatic], [normocephalic], [symmetric] Eyes: [EOMI], [no lid lag], [anicteric sclera] Mouth: [no lip lesion], [mucus membranes moist] Cardiovascular: [S1S2 reg], [no murmur], [positive posterior tibial pulse bilateral], Lungs: [CTA bilateral], [no rhonchi, no rales] , [no accessory muscle use] Abdominal: [soft], [ nontender to palpation], [no guarding], [no appreciable organomegaly] Ext: [no gross muscle atrophy], [no edema], [no contractures] Neuro: [ CN II-XI grossly intact], [no focal neuro deficits] Psych: [Alert], [oriented], [appropriate affect] - Labs CBC & Chem 7: 11/17/19 07:04 11/17/19 07:04 Labs: Abnormal Lab Results - Last 24 Hours (Table) 11/17/19 11/17/19 Range/Units 07:04 07:04 RBC 3.33 L (3.80-5.40) m/uL Hgb 10.2 L (11.4-16.0) gm/dL Hct 31.2 L (34.0-46.0) % Plt Count 143 L (150-450) k/uL Chloride 111 H (98-107) mmol/L Calcium 7.6 L (8.4-10.2) mg/dL Assessment and Plan Assessment: Bright red blood per rectum with probable lower GI bleed - Serial H and H - PPI -DC IVF and encourage hydration by mouth -Discussed with Dr. Murray, plans for tagged RBC study and scope on Sunday Elevated BUN -Likely related to GI bleed -Avoid nephrotoxins -Repeat BMP tomorrow morning HTN - hold norvasc with low BP - Follow BP DM 2 - no longer on medications - follow with AM Labs HLD - statin Hypothyroidism - Synthroid [Patient admitted for active GI bleed. Hemoglobin stable. Continue to monitor. Plans for tagged RBC study and scope on Sunday. Likely DC 3-4 days.]
--- NOTE | 2019-11-17 14:28 | NM ---
EXAMINATION TYPE: NM GI bleeding DATE OF EXAM: 11/17/2019 HISTORY: GI Bleed fresh last 3 hrs COMPARISON: NONE Following administration of 3 ml PYP 26.5 mCi Tc 99m Sodium Pertechnete. Immediate images post inject ion. FINDINGS: Normal tracer activity is seen in the blood pool of the abdominal aorta, common iliac arteries, femor al arteries, liver, and spleen on all of the interval images. Later images show accumulation of trace r in the urinary bladder, which is consistent with excreted tracer. No abnormal tracer uptake is pres ent outside the blood pool that would be consistent with an active GI bleed. IMPRESSION: Negative examination. No evidence of active gastrointestinal bleeding during the initial 1 hr observa tion period.
[2019-11-17] MEDS: ZINC SULFATE 220 MG CAP PO SCH (20:32)
[2019-11-18] MEDS: LEVOTHYROXINE 100 MCG TAB PO SCH (05:58)
[2019-11-18] MEDS: LEVOTHYROXINE 25 MCG TAB PO SCH (05:58)
[2019-11-18] MEDS: ATORVASTATIN 10 MG TAB PO SCH (07:57)
[2019-11-18] MEDS: FAMOTIDINE 20 MG/2 ML VIAL IV SCH ×2 (07:57→20:18)
[2019-11-18] MEDS: MAGNESIUM OXIDE 400 MG TAB PO SCH (07:57)
[2019-11-18] MEDS: buPROPion XL 300 MG TAB.ER.24H PO SCH (07:57)
[2019-11-18 08:17] LABS: HCT 31.6 % (34.0-46.0); HGB 10.2 gm/dL (11.4-16.0); MCH 30.1 pg (25.0-35.0); MCHC 32.3 g/dL (31.0-37.0); MCV 93.1 fL (80.0-100.0); Mean Platelet Volume 9.5; Platelet Count 143 k/uL (150-450); RBC 3.39 m/uL (3.80-5.40); RDW 14.1 % (11.5-15.5); WBC 7.3 k/uL (3.8-10.6)
[2019-11-18 08:40] LABS: Potassium 3.7 mmol/L (3.5-5.1)
[2019-11-18 11:04] VITALS: BMI 41.6
--- NOTE | 2019-11-18 11:47 | P.PN ---
Subjective Progress Note Date: 11/18/19 Feels fine today, no chest pain no abdominal pain, no nausea no vomiting no dizziness. No gross bleeding. Objective - Vital Signs Vital signs: Vital Signs Temp 98.1 F 11/18/19 07:00 Pulse 66 11/18/19 07:00 Resp 15 11/18/19 07:00 BP 119/71 11/18/19 07:00 Pulse Ox 98 11/18/19 07:00 Intake & Output 11/17/19 11/18/19 11/18/19 18:59 06:59 18:59 Intake Total 800 200 Balance 800 200 Weight 110.1 kg Intake: IV 800 Sodium Chloride 0.9% 1, 800 000 ml @ 120 mls/hr IV . Q8H20M [facility] Rx#:[id number] Oral 200 Other: Voiding Method Toilet Toilet # Voids 1 # Bowel Movements 1 1 - Exam Constitutional: No acute distress, conversant, pleasant Eyes: Anicteric sclerae, moist conjunctiva, no lid-lag, PERRLA ENMT: NC/AT,Oropharynx clear, no erythema, exudates Neck:Supple, FROM, no masses, or JVD Lungs: Clear to auscultation, Clear to percussion, Normal respiratory effort Cardiovascular: Heart regular in rate and rhythm, No murmurs, gallops, or rubs no peripheral edema Abdominal: Soft Nontender, nom distended, no guarding, no rebound or rigidity Skin: Normal temperature Extremities:No digital cyanosis No clubbing Psychiatric: Alert and oriented to person, place and time, Appropriate affect Intact judgment Neuro: Muscles Strength 5/5 in all 4 extremities, Sensation to light touch joey sly present throughout, Cranial nerves II-XII grossly intact. No focal sensory deficits - Labs CBC & Chem 7: 11/18/19 07:48 11/18/19 07:48 Labs: Abnormal Lab Results - Last 24 Hours (Table) 11/18/19 11/18/19 Range/Units 07:48 07:48 RBC 3.39 L (3.80-5.40) m/uL Hgb 10.2 L (11.4-16.0) gm/dL Hct 31.6 L (34.0-46.0) % Plt Count 143 L (150-450) k/uL Chloride 110 H (98-107) mmol/L Calcium 8.0 L (8.4-10.2) mg/dL Assessment and Plan Plan: Bright red blood per rectum with probable lower GI bleed Monitor H&H, he stated that point to - PPI Date RBC unremarkable, plan for EGD/colonoscopy tomorrow Elevated BUN -Likely related to GI bleed HTN, essential - hold norvasc with low BP - Follow BP DM 2 - no longer on medications Monitor HLD - statin Hypothyroidism - Synthroid Morbid obesity: BMI 41.7 Disposition: Home likely tomorrow after EGD/colonoscopy
--- NOTE | 2019-11-18 14:41 | P.PN ---
<Carmen Lopez - Last Filed: 11/18/19 14:37> Subjective Progress Note Date: 11/18/19 CHIEF COMPLAINT: GI bleed HISTORY OF PRESENT ILLNESS: Patient had no further GI bleeding through the night. She had one dark brown bowel movement this morning. She still having some epigastric abdominal pain after drinking clears. Her tagged RBC was negative. Her hemoglobin is stable same at 10.2. She is afebrile. She is scheduled for EGD and colonoscopy tomorrow with Dr. Murray. PHYSICAL EXAM: VITAL SIGNS: Reviewed. GENERAL: Well-developed in no acute distress. HEENT: No sclera icterus. Extraocular movements grossly intact. Moist buccal mucosa. Head is atraumatic, normocephalic. ABDOMEN: Soft. Nondistended. Nontender. NEUROLOGIC: Alert and oriented. Cranial nerves II through XII grossly intact. ASSESSMENT: 1. Acute GI bleed 2. Acute blood loss anemia secondary to GI bleed 3. History of Immanuel-en-Y 4. History of diverticulosis and episodes of diverticulitis PLAN: -Patient scheduled for EGD and colonoscopy with Dr. Murray tomorrow -We'll place patient nothing by mouth after midnight -Patient will be given GoLYTELY prep -Continue monitor CBC daily -Discontinue vitamin A and multivitamin due to increased risk of bleeding -Continue IV Pepcid Physician Broadcast Operations Director note has been reviewed by physician. Signing provider agrees with the documented findings, assessment, and plan of care. Objective - Vital Signs Vital signs: Vital Signs Temp 97.9 F 11/18/19 14:10 Pulse 67 11/18/19 14:10 Resp 16 11/18/19 14:10 BP 133/70 11/18/19 14:10 Pulse Ox 99 11/18/19 14:10 Intake & Output 11/17/19 11/18/19 11/18/19 18:59 06:59 18:59 Intake Total 800 200 Balance 800 200 Weight 110.1 kg Intake: IV 800 Sodium Chloride 0.9% 1, 800 000 ml @ 120 mls/hr IV . Q8H20M [facility] Rx#:[id number] Oral 200 Other: Voiding Method Toilet Toilet # Voids 1 # Bowel Movements 1 3 - Labs CBC & Chem 7: 11/18/19 07:48 11/18/19 07:48 Labs: Abnormal Lab Results - Last 24 Hours (Table) 11/18/19 11/18/19 Range/Units 07:48 07:48 RBC 3.39 L (3.80-5.40) m/uL Hgb 10.2 L (11.4-16.0) gm/dL Hct 31.6 L (34.0-46.0) % Plt Count 143 L (150-450) k/uL Chloride 110 H (98-107) mmol/L Calcium 8.0 L (8.4-10.2) mg/dL <Qian Murray - Last Filed: 11/20/19 22:57> Subjective Patient seen and evaluated with above. Please see additional recommendations below. HISTORY OF PRESENT ILLNESS: Laura Bishop is a 64-year-old female presents for recurrent gastrointestinal bleed. She completed a tagged RBC scan yesterday. She denies any bleeding today. She reports intolerance to Protonix including Pepcid that triggers epigastric cramping. At present she denies any current abdominal pain. She is tolerating her bowel prep. REVIEW OF SYSTEMS: No chest pain. No fevers or chills. No productive sputum. PHYSICAL EXAM: VITAL SIGNS: Reviewed GENERAL: Well-developed female in no acute distress. HEENT: No scleral icterus. Extraocular movements grossly intact. Hears conversational speech. No nasal drainage. CHEST: Nonlabored respirations with equal bilateral excursions. CARDIOVASCULAR: Distal 2+ pulses. ABDOMEN: Soft, Nondistended. The tibial. No peritonitis. MUSCULOSKELETAL: No clubbing, cyanosis. NEURO: No focal or lateralizing signs. Cranial nerves 2 through 12 grossly wi thin normal limits. PSYCH: Appropriate affect. Alert and oriented to person, place and time. SKIN: Good skin turgor. Well perfused. LABS: Reviewed. Hemoglobin down 11.2-10.2, now 10.2, stable STUDIES: A tagged RBC scan independent review demonstrated no acute GI bleed. ASSESSMENT: 1. Gastrointestinal bleeding PLAN: 1. As the patient presents with recurrent GI bleed, benefits risk of upper and lower endoscopy were reviewed. We'll proceed with upper and lower endoscopies. Objective - Vital Signs Vital signs: Vital Signs Temp 98.0 F 11/20/19 07:00 Pulse 64 11/20/19 07:00 Resp 16 11/20/19 07:00 BP 128/74 11/20/19 07:00 Pulse Ox 95 11/20/19 07:00 Intake & Output 11/20/19 11/20/19 11/21/19 06:59 18:59 06:59 Intake Total 200 Balance 200 Intake: Oral 200 Other: Voiding Method Toilet # Voids 2 3 - Labs CBC & Chem 7: 11/20/19 07:00 11/20/19 07:00 Labs: Abnormal Lab Results - Last 24 Hours (Table) 11/20/19 11/20/19 Range/Units 07:00 07:00 RBC 3.37 L (3.80-5.40) m/uL Hgb 10.4 L (11.4-16.0) gm/dL Hct 31.5 L (34.0-46.0) % Potassium 3.4 L (3.5-5.1) mmol/L Chloride 111 H (98-107) mmol/L Glucose 101 H (74-99) mg/dL Calcium 7.9 L (8.4-10.2) mg/dL Total Protein 5.3 L (6.3-8.2) g/dL Albumin 3.0 L (3.5-5.0) g/dL Assessment and Plan (1) Anemia Status: Acute Code(s): D64.9 - ANEMIA, UNSPECIFIED SNOMED Code(s): 147871018 (2) Anemia associated with acute blood loss Status: Acute Code(s): D62 - ACUTE POSTHEMORRHAGIC ANEMIA SNOMED Code(s): 503915007 (3) GI bleed Status: Acute Code(s): K92.2 - GASTROINTESTINAL HEMORRHAGE, UNSPECIFIED SNOMED Code(s): 43600762 (4) Hematochezia Status: Acute Code(s): K92.1 - MELENA SNOMED Code(s): 014735884
[2019-11-18] MEDS ORDERED: PEG 3350-NA SULF,BICARB,CL/KCL 4,000 ML BOTTLE PO ONE (15:00)
[2019-11-18] MEDS: ZINC SULFATE 220 MG CAP PO SCH (20:18)
--- NOTE | 2019-11-18 22:33 | PN ---
PROGRESS NOTE DATE OF DICTATION: 11/18/2019 This patient is a 64-year-old white female admitted to the hospital with acute GI bleed. She had multiple episodes of bright red blood per rectum. She was seen by Dr. Booker in consultation 2 days ago. She did have a GI nuclear medicine scan yesterday that was unremarkable. In the meantime, she had about 2 episodes of bright red blood per rectum yesterday and today she was seen by Dr. Murray and scheduled for an upper endoscopy as well as colonoscopy tomorrow. Her last colonoscopy was in January of 2019. PHYSICAL EXAMINATION: She appears comfortable. No apparent distress. Vital signs are stable. Blood pressure is 133/70, pulse rate 67, temperature 97.9. HEENT examination unremarkable. Conjunctivae pink. Sclerae anicteric. Oral cavity no lesions. NECK: No JVD or lymph node enlargement. CHEST: Clear to auscultation. HEART: Regular rate and rhythm. ABDOMEN: Soft. Bowel sounds are positive. No organomegaly. EXTREMITIES: No pedal edema. SKIN: No rashes. NEUROLOGIC: Alert and oriented x3. No focal deficits. LABS: WBC 7.3, hemoglobin 10.2, platelets 143. BUN and creatinine are within normal limits. IMPRESSION: 1. Acute lower gastrointestinal bleed, possibly diverticular in etiology. Hemoglobin down to 10.2 g/dL. Tagged RBC scan yesterday was negative. The patient is scheduled for EGD and colonoscopy by Dr. Murray tomorrow. 2. History of gastric bypass surgery. 3. History of hypothyroidism. 4. History of hypertension and hypercholesteremia. RECOMMENDATIONS: 1. Monitor CBC daily. 2. Await results by Dr. Murray. 3. Will sign off at this time. Please call us if needed. Thank you for this consultation. MMODL / IJN: [id number] /
[2019-11-19] MEDS: LEVOTHYROXINE 100 MCG TAB PO SCH (05:43)
[2019-11-19] MEDS: LEVOTHYROXINE 25 MCG TAB PO SCH (05:43)
[2019-11-19] MEDS: LACTATED RINGERS 1,000 ML IV SCH ×2 (06:45→21:19)
[2019-11-19 07:05] LABS: HCT 31.6 % (34.0-46.0); HGB 10.4 gm/dL (11.4-16.0); MCH 30.9 pg (25.0-35.0); MCHC 33.1 g/dL (31.0-37.0); MCV 93.3 fL (80.0-100.0); Mean Platelet Volume 9.1; Platelet Count 155 k/uL (150-450); RBC 3.39 m/uL (3.80-5.40); RDW 14.2 % (11.5-15.5); WBC 6.5 k/uL (3.8-10.6)
[2019-11-19] MEDS: ATORVASTATIN 10 MG TAB PO SCH (07:48)
[2019-11-19] MEDS: MAGNESIUM OXIDE 400 MG TAB PO SCH (07:48)
[2019-11-19] MEDS: FAMOTIDINE 20 MG/2 ML VIAL IV SCH (07:48)
[2019-11-19] MEDS: buPROPion XL 300 MG TAB.ER.24H PO SCH (07:48)
[2019-11-19] MEDS ORDERED: PROPOFOL 10 MG/ML 20 ML VIAL IV ONE (08:01)
[2019-11-19] MEDS ORDERED: IV FLUID CONTINUATION 1,000 ML IV ONE (08:01)
--- NOTE | 2019-11-19 08:08 | P.HPADDEND ---
H&P Addendum H&P Addendum Date: 11/19/19 Patient seen and evaluated yesterday evening and this morning. She reports persistent epigastric pain. She presented with GI bleed. We'll proceed with both upper and lower endoscopy.
--- NOTE | 2019-11-19 08:15 | P.PCN ---
Date of Procedure: 11/19/19 Description of Procedure: PREOPERATIVE DIAGNOSES: 1. Gastrointestinal bleeding 2. Acute blood loss anemia 3. Epigastric abdominal pain POSTOPERATIVE DIAGNOSES: 1. Gastrointestinal bleeding 2. Acute blood loss anemia 3. Epigastric abdominal pain PROCEDURE PERFORMED: Esophagogastrojejunoscopy. SURGEON: Qian Murray MD ANESTHESIA: MAC. INDICATIONS: The patient is a 64-year-old female who presented acutely with gastrointestinal bleed including epigastric abdominal pain. Upper endoscopy was offered for diagnosis and management. DESCRIPTION: Patient was brought to the endoscopy suite and laid in the left lateral decubitus position. After adequate IV sedation, a bite block was placed. An Olympus gastroscope was passed along the posterior oropharynx down to the distal esophagus where the squamocolumnar junction was found at approximately 32 cm from the incisors. His anastomosis was found at 45 cm. The scope was advanced 60 cm from the incisors. No evidence of foreign body was found. No evidence of active gastrojejunal ulcerations were encountered. The GI tract was desufflated. The patient tolerated the procedure well. FINDINGS: 1. No acute gastrojejunal ulceration. 2. No foreign body found along the anastomosis. PLAN: 1. Recommend upper endoscopy as needed.
[2019-11-19 08:22] VITALS: RESP 16
--- NOTE | 2019-11-19 08:23 | P.PCN ---
Date of Procedure: 11/19/19 Description of Procedure: PREOPERATIVE DIAGNOSIS: Gastrointestinal bleed Acute blood loss anemia POSTOPERATIVE DIAGNOSIS: Gastrointestinal bleed Acute blood loss anemia External hemorrhoids Poor prep OPERATION: Aborted colonoscopy to the rectum SURGEON: Qian Murray MD. ANESTHESIA: MAC. INDICATIONS: The patient is a 64-year-old female who presented with acute blood loss anemia including rectal bleeding and gastrointestinal bleed. Endoscopy was offered for diagnostic assessment. Benefits and risks were described and informed consent was obtained. DESCRIPTION OF PROCEDURE: The patient had undergone a GoLYTELY prep. She had been brought into the operating room and laid in the left lateral decubitus position. After adequate intravenous sedation, the rectum was examined with 2% lidocaine jelly. External hemorrhoids were encountered. The rectal tone was within normal limits. An Olympus colonoscope was advanced along the rectum where moderately solid stool was found prohibiting advancement of the scope. With this finding, the procedure was discontinued. The colon was desufflated. The patient had tolerated the procedure well. FINDINGS: [place] preparation quality scale 5 (1-5) External prolapsed hemorrhoids, grade 2 without bleeding or inflammation. Scope advanced to the rectum with solid stool, poor prep RECOMMENDATIONS: Nondiagnostic colonoscopy Repeat colonoscopy for any recurrent bleeding. Plan - Discharge Summary Discharge Rx Participant: Yes New Discharge Prescriptions: No Action buPROPion XL [Wellbutrin XL] 300 mg PO DAILY amLODIPine [Norvasc] 10 mg PO DAILY Atorvastatin [Lipitor] 10 mg PO DAILY Zinc Gluconate [Zinc] 50 mg PO HS Cyanocobalamin [Vitamin B-12] 500 mcg PO HS Vitamin A 8,000 unit PO HS Cholecalciferol [Vitamin D3 (25 Mcg = 1000 Iu)] 2,000 unit PO HS Multivitamins, Thera [Multivitamin (formulary)] 1 tab PO DAILY Omeprazole [PriLOSEC] 40 mg PO DAILY Levothyroxine Sodium [Euthyrox] 200 mcg PO DAILY Levothyroxine Sodium [Euthyrox] 25 mcg PO DAILY Magnesium Oxide 400 mg PO DAILY Discharge Medication List buPROPion XL [Wellbutrin XL] 300 mg PO DAILY 07/29/18 [History] amLODIPine [Norvasc] 10 mg PO DAILY 02/25/19 [History] Atorvastatin [Lipitor] 10 mg PO DAILY 02/28/19 [History] Cholecalciferol [Vitamin D3 (25 Mcg = 1000 Iu)] 2,000 unit PO HS 11/12/19 [History] Cyanocobalamin [Vitamin B-12] 500 mcg PO HS 11/12/19 [History] Levothyroxine Sodium [Euthyrox] 25 mcg PO DAILY 11/12/19 [History] Levothyroxine Sodium [Euthyrox] 200 mcg PO DAILY 11/12/19 [History] Magnesium Oxide 400 mg PO DAILY 11/12/19 [History] Multivitamins, Thera [Multivitamin (formulary)] 1 tab PO DAILY 11/12/19 [History] Omeprazole [PriLOSEC] 40 mg PO DAILY 11/12/19 [History] Vitamin A 8,000 unit PO HS 11/12/19 [History] Zinc Gluconate [Zinc] 50 mg PO HS 11/12/19 [History] Follow up Appointment(s)/Referral(s): Stephy Harris MD [Primary Care Provider] - 1-2 days
--- NOTE | 2019-11-19 11:39 | P.PN ---
Subjective Progress Note Date: 11/19/19 Status post EGD/colonoscopy today. No chest pain no abdominal pain, no gross bleeding. Objective - Vital Signs Vital signs: Vital Signs Temp 98.2 F 11/19/19 08:35 Pulse 64 11/19/19 10:20 Resp 16 11/19/19 07:00 BP 127/72 11/19/19 10:20 Pulse Ox 99 11/19/19 10:20 Intake & Output 11/18/19 11/19/19 11/19/19 18:59 06:59 18:59 Intake Total 400 100 Balance 400 100 Weight 110.1 kg Intake: IV 100 Oral 400 Other: Voiding Method Toilet # Voids 1 # Bowel Movements 3 - Exam Constitutional: No acute distress, conversant, pleasant Eyes: Anicteric sclerae, moist conjunctiva, no lid-lag, PERRLA ENMT: NC/AT Neck:Supple, FROM, no masses, or JVD Lungs: Clear to auscultation, Clear to percussion, Normal respiratory effort Cardiovascular: Heart regular in rate and rhythm, No murmurs, gallops, or rubs no peripheral edema Abdominal: Soft Nontender, nom distended, no guarding, no rebound or rigidity Skin: Normal temperature Extremities:No digital cyanosis No clubbing Psychiatric: Alert and oriented to person, place and time, Appropriate affect Intact judgment Neuro: Muscles Strength 5/5 in all 4 extremities, Sensation to light touch grossly present throughout, Cranial nerves II-XII grossly intact. No focal sensory deficits - Labs CBC & Chem 7: 11/19/19 06:24 11/18/19 07:48 Labs: Abnormal Lab Results - Last 24 Hours (Table) 11/19/19 Range/Units 06:24 RBC 3.39 L (3.80-5.40) m/uL Hgb 10.4 L (11.4-16.0) gm/dL Hct 31.6 L (34.0-46.0) % Assessment and Plan Plan: Bright red blood per rectum with probable lower GI bleed Monitor H&H, he stated that point to - PPI Date RBC unremarkable, sp EGD/colonoscopy today 1. No acute gastrojejunal ulceration. 2. No foreign body found along the anastomosis. Colonoscopy not very clear with poor prep, plan to repeat tomorrow Elevated BUN -Likely related to GI bleed HTN, essential - hold norvasc with low BP - Follow BP DM 2 - Not on medications Monitor HLD - statin Hypothyroidism - Synthroid Morbid obesity: BMI 41.7 Disposition: Home likely tomorrow repeat colonoscopy
[2019-11-19] MEDS: ZINC SULFATE 220 MG CAP PO SCH (21:18)
[2019-11-19] MEDS: FAMOTIDINE 20 MG TAB PO SCH (21:18)
[2019-11-20 03:44] VITALS: PULSE 64
[2019-11-20] MEDS: LEVOTHYROXINE 25 MCG TAB PO SCH (05:49)
[2019-11-20] MEDS: LEVOTHYROXINE 100 MCG TAB PO SCH (05:49)
[2019-11-20 07:21] LABS: Basophils % (A) 1 %; Eosinophils # (A) 0.2 k/uL (0-0.7); Eosinophils % (A) 4 %; HCT 31.5 % (34.0-46.0); HGB 10.4 gm/dL (11.4-16.0); Lymphocytes # (A) 1.5 k/uL (1.0-4.8); Lymphocytes % (A) 29 %; MCH 30.8 pg (25.0-35.0); MCV 93.2 fL (80.0-100.0); Mean Platelet Volume 8.8; Monocytes # (A) 0.3 k/uL (0-1.0); Monocytes % (A) 6 %; Neutrophils % (A) 58 %; Platelet Count 156 k/uL (150-450); RBC 3.37 m/uL (3.80-5.40); RDW 14.2 % (11.5-15.5); WBC 5.2 k/uL (3.8-10.6)
[2019-11-20 07:35] LABS: Calcium 7.9 mg/dL (8.4-10.2); Potassium 3.4 mmol/L (3.5-5.1); Total Bilirubin 0.4 mg/dL (0.2-1.3); Total Protein 5.3 g/dL (6.3-8.2)
[2019-11-20 07:59] VITALS: BP 128/74; TEMP 98
[2019-11-20] MEDS: MAGNESIUM OXIDE 400 MG TAB PO SCH (07:59)
[2019-11-20] MEDS: buPROPion XL 300 MG TAB.ER.24H PO SCH (07:59)
[2019-11-20] MEDS: ATORVASTATIN 10 MG TAB PO SCH (07:59)
[2019-11-20] MEDS: FAMOTIDINE 20 MG TAB PO SCH (07:59)
[2019-11-20] MEDS ORDERED: POTASSIUM CHLORIDE ER 20 MEQ TAB.ER PO STA (08:46)
[2019-11-20] MEDS ORDERED: amLODIPine 10 MG TAB PO SCH (09:00)
--- NOTE | 2019-11-20 16:46 | P.DS ---
Providers Date of admission: 11/15/19 10:22 Expected date of discharge: 11/20/19 Attending physician: Rima Palmer MD Consults: 11/15/19 08:58 Consult Physician Routine Consulting Provider: Qian Murray Consult Reason/Comments: Lower GI bleed Do you want consulting provider notified?: Already Contacted 11/15/19 11:15 Consult Physician Routine Consulting Provider: Keagan Booker Consult Reason/Comments: gib Do you want consulting provider notified?: Yes 11/15/19 11:20 Consult Physician Routine Consulting Provider: Jeremy Ro Consult Reason/Comments: ICU management, Lower GI bleed Do you want consulting provider notified?: Yes Primary care physician: Stephy Harris Hospital Course: Patient is a 64-year-old female with past medical history of hypertension, Immanuel-en-Y gastric bypass, prior GI bleed of unknown cause in January 2019 with colonoscopy that showed internal and external hemorrhoids as well as diverticulosis him a hypertension, and dyslipidemia who presented to the emergency department secondary to bright red blood per rectum. Of note patient was hospitalized here from 11/11 through 11/12 for the same complaint. At that point in time she had had one bright red bowel movement but had no additional ones after hospitalization her hemoglobin stayed stable at 13.5. She states that she had recurrence of her bright red blood per rectum starting on 8:15 at 6:30 AM. On arrival to the ER her vital signs were within normal limits. Laboratory analysis again shows hemoglobin 13.5. She was started on IV fluids and arrangements were made for admission. After arrival to the ER she had apparently 3 additional bowel movements with bright red blood and then had an additional one on the floor. She was subsequently immediately transferred to the ICU. Patient seen and examined at bedside. She reports that she had bright red blood starting at 6:30 this morning in the toilet. Initially she was having some upper abdominal pain and nausea but this has since resolved. She denies any vomiting. She states showed total of 5 bloody bowel movements. She is no longer having any abdominal pain. She did have some lightheadedness during her third bowel movement but this has since resolved. She denies any chest pain, shortness of breath, or dizziness. She did not eat anything unusual or change her diet since leaving the hospital. Her hemoglobin on admission was 13.5. Her hemoglobin remained stable between 12.1 and 10.2 during her admission. Surgery was consulted. Tagged RBC study was done that was negative for active GI bleeding. Upper endoscopy was done which showed no signs of bleeding. Colonoscopy was attempted but had incomplete prep. Surgery cleared the patient for discharge. Patient was seen and examined. No acute events overnight. Patient denies any episodes of melena or bright red blood per rectum. She denies any chest pain, shortness of breath or palpitations. No nausea or vomiting. No fever or chills. General: [non toxic], [no distress], [appears at stated age] Derm: [warm], [dry] Head: [atraumatic], [normocephalic], [symmetric] Eyes: [EOMI], [no lid lag], [anicteric sclera] Mouth: [no lip lesion], [mucus membranes moist] Cardiovascular: [S1S2 reg], [no murmur], [positive posterior tibial pulse bilateral], Lungs: [CTA bilateral], [no rhonchi, no rales] , [no accessory muscle use] Abdominal: [soft], [ nontender to palpation], [no guarding], [no appreciable organomegaly] Ext: [no gross muscle atrophy], [no edema], [no contractures] Neuro: [ CN II-XI grossly intact], [no focal neuro deficits] Psych: [Alert], [oriented], [appropriate affect] Bright red blood per rectum with probable lower GI bleed -Hemoglobin stable - PPI -DC IVF and encourage hydration by mouth - GI and general surgery recs -EGD intact RBC study does not show any source of bleeding, colonoscopy was incomplete Hypokalemia -Potassium 3.4 -Replace via protocol HTN -Restart amlodipine - Follow BP DM 2 - no longer on medications - follow with AM Labs HLD - statin Hypothyroidism - Synthroid [Patient admitted for active GI bleed. Hemoglobin stable. No source of bleeding found. Surgery cleared patient for discharge. Advised of warning symptoms when to come back to the ED. Likely DC today. This completely discharge took about 35 minutes to complete.] Pertinent Studies: Tagged RBC study Procedures: Endoscopy and colonoscopy Patient Condition at Discharge: Stable Plan - Discharge Summary Discharge Rx Participant: Yes New Discharge Prescriptions: Continue buPROPion XL [Wellbutrin XL] 300 mg PO DAILY amLODIPine [Norvasc] 10 mg PO DAILY Atorvastatin [Lipitor] 10 mg PO DAILY Zinc Gluconate [Zinc] 50 mg PO HS Cyanocobalamin [Vitamin B-12] 500 mcg PO HS Vitamin A 8,000 unit PO HS Cholecalciferol [Vitamin D3 (25 Mcg = 1000 Iu)] 2,000 unit PO HS Multivitamins, Thera [Multivitamin (formulary)] 1 tab PO DAILY Omeprazole [PriLOSEC] 40 mg PO DAILY Levothyroxine Sodium [Euthyrox] 200 mcg PO DAILY Levothyroxine Sodium [Euthyrox] 25 mcg PO DAILY Magnesium Oxide 400 mg PO DAILY Discharge Medication List buPROPion XL [Wellbutrin XL] 300 mg PO DAILY 07/29/18 [History] amLODIPine [Norvasc] 10 mg PO DAILY 02/25/19 [History] Atorvastatin [Lipitor] 10 mg PO DAILY 02/28/19 [History] Cholecalciferol [Vitamin D3 (25 Mcg = 1000 Iu)] 2,000 unit PO HS 11/12/19 [History] Cyanocobalamin [Vitamin B-12] 500 mcg PO HS 11/12/19 [History] Levothyroxine Sodium [Euthyrox] 25 mcg PO DAILY 11/12/19 [History] Levothyroxine Sodium [Euthyrox] 200 mcg PO DAILY 11/12/19 [History] Magnesium Oxide 400 mg PO DAILY 11/12/19 [History] Multivitamins, Thera [Multivitamin (formulary)] 1 tab PO DAILY 11/12/19 [History] Omeprazole [PriLOSEC] 40 mg PO DAILY 11/12/19 [History] Vitamin A 8,000 unit PO HS 11/12/19 [History] Zinc Gluconate [Zinc] 50 mg PO HS 11/12/19 [History] Follow up Appointment(s)/Referral(s): Qian Murray MD [STAFF PHYSICIAN] - 11/25/19 4:45 pm Stephy Harris MD [Primary Care Provider] - 1-2 days (office closed at time of discharge. Please call to make appointment) Activity/Diet/Wound Care/Special Instructions: Diet: Regular FU PCP within 3 days of DC. FU Surgery within 1 week of DC. Repeat BMP in 3 days. Come back to the ED for BRBPR, CP, SOB, palpitations or dizziness. Discharge Disposition: HOME SELF-CARE
--- NOTE | 2019-11-20 23:03 | P.PN ---
Subjective Progress Note Date: 11/20/19 HISTORY OF PRESENT ILLNESS: Laura Bishop is a 64-year-old female presents for recurrent gastrointestinal bleed. She completed an upper endoscopy without findings of acute gastric ulcer. Lower endoscopy was discontinued due to poor prep with retained solid stool. No acute blood was found per rectum or acute complicated hemorrhoids. She tolerated regular diet in the evening for dinner including breakfast. She had a bowel movement without blood. She denies any epigastric discomfort. REVIEW OF SYSTEMS: No chest pain. No fevers or chills. No productive sputum. PHYSICAL EXAM: VITAL SIGNS: Reviewed GENERAL: Well-developed female in no acute distress. HEENT: No scleral icterus. Extraocular movements grossly intact. Hears conversational speech. No nasal drainage. CHEST: Nonlabored respirations with equal bilateral excursions. CARDIOVASCULAR: Distal 2+ pulses. ABDOMEN: Soft, Nondistended. Nontender. MUSCULOSKELETAL: No clubbing, cyanosis. NEURO: No focal or lateralizing signs. Cranial nerves 2 through 12 grossly within normal limits. PSYCH: Appropriate affect. Alert and oriented to person, place and time. SKIN: Good skin turgor. Well perfused. LABS: Reviewed. Hemoglobin down 10.2 now up to 10.4 ASSESSMENT: 1. Gastrointestinal bleeding, resolved PLAN: 1. She has had no further bleeding in the last 48 hours and without abdominal pain. Patient stable from a surgical standpoint for discharge and follow-up as outpatient. Objective - Vital Signs Vital signs: Vital Signs Temp 98.0 F 11/20/19 07:00 Pulse 64 11/20/19 07:00 Resp 16 11/20/19 07:00 BP 128/74 11/20/19 07:00 Pulse Ox 95 11/20/19 07:00 Intake & Output 11/20/19 11/20/19 11/21/19 06:59 18:59 06:59 Intake Total 200 Balance 200 Intake: Oral 200 Other: Voiding Method Toilet # Voids 2 3 - Labs CBC & Chem 7: 11/20/19 07:00 11/20/19 07:00 Labs: Abnormal Lab Results - Last 24 Hours (Table) 11/20/19 11/20/19 Range/Units 07:00 07:00 RBC 3.37 L (3.80-5.40) m/uL Hgb 10.4 L (11.4-16.0) gm/dL Hct 31.5 L (34.0-46.0) % Potassium 3.4 L (3.5-5.1) mmol/L Chloride 111 H (98-107) mmol/L Glucose 101 H (74-99) mg/dL Calcium 7.9 L (8.4-10.2) mg/dL Total Protein 5.3 L (6.3-8.2) g/dL Albumin 3.0 L (3.5-5.0) g/dL Assessment and Plan (1) Anemia Status: Acute Code(s): D64.9 - ANEMIA, UNSPECIFIED SNOMED Code(s): 835857343 (2) Anemia associated with acute blood loss Status: Acute Code(s): D62 - ACUTE POSTHEMORRHAGIC ANEMIA SNOMED Code(s): 26 4932832 (3) GI bleed Status: Acute Code(s): K92.2 - GASTROINTESTINAL HEMORRHAGE, UNSPECIFIED SNOMED Code(s): 75873470 (4) Hematochezia Status: Acute Code(s): K92.1 - MELENA SNOMED Code(s): 948009735
== END 2019-11-20 13:53 | disposition home or self-care (01) | DRG 378 ==
LOC: EC 07:36 → 4SSUR 08:57 → OBSVTOIN 10:22 → 2SICU 11:07 → 4SSUR 11-16 18:48
PROVIDERS: ADMIT Internal Medicine; ATTEND Internal Medicine
PROC: 0DJ08ZZ Inspection of Upper Intestinal Tract, Via Natural or Artificial Opening Endoscopic (ICD-10-PCS; principal; 2019-11-19 10:40)
DX: K92.2 Gastrointestinal hemorrhage, unspecified (principal); D62 Acute posthemorrhagic anemia; Z68.41 Body mass index [BMI] 40.0-44.9, adult; E78.5 Hyperlipidemia, unspecified; K21.9 Gastro-esophageal reflux disease without esophagitis; E11.9 Type 2 diabetes mellitus without complications; I10 Essential (primary) hypertension; F41.9 Anxiety disorder, unspecified; F32.9 Major depressive disorder, single episode, unspecified; M19.90 Unspecified osteoarthritis, unspecified site; E55.9 Vitamin D deficiency, unspecified; R94.4 Abnormal results of kidney function studies; E66.01 Morbid (severe) obesity due to excess calories; E89.0 Postprocedural hypothyroidism; E78.00 Pure hypercholesterolemia, unspecified; K64.4 Residual hemorrhoidal skin tags; Z53.9 Procedure and treatment not carried out, unspecified reason; Z87.891 Personal history of nicotine dependence; Z80.1 Family history of malignant neoplasm of trachea, bronchus and lung; Z88.8 Allergy status to other drugs, medicaments and biological substances; Z87.19 Personal history of other diseases of the digestive system; Z98.890 Other specified postprocedural states; Z79.899 Other long term (current) drug therapy; Z79.890 Hormone replacement therapy; Z90.89 Acquired absence of other organs; Z90.49 Acquired absence of other specified parts of digestive tract; Z90.710 Acquired absence of both cervix and uterus; Z98.51 Tubal ligation status; Z98.84 Bariatric surgery status; Z80.3 Family history of malignant neoplasm of breast; Z82.49 Family history of ischemic heart disease and other diseases of the circulatory system
CPT/HCPCS: 36415; 43235; 78278; 80048; 80053; 83735; 85025; 85027; 85610; 85730; 86850; 86900; 86901; 99291

== ENCOUNTER 2020-04-29 07:09 | Day surgery (SDC) | payer OTHER ==
[2020-04-28 08:31] VITALS: BMI 41.8
[~2020-04-29 07:09] MED LIST changes: +LACTATED RINGERS 1,000 ML IV SCH; -ONDANSETRON 4 MG/2 ML VIAL IVP ONE; -SCOPOLAMINE 1.5MG/72HR PATCH TRANSDERM ONE
[2020-04-29 07:35] VITALS: TEMP 97.6
[2020-04-29 07:55] LABS: Glucose,Whole Blood 134 mg/dL (75-99)
[2020-04-29] MEDS ORDERED: PROPOFOL 10 MG/ML 20 ML VIAL IV ONE (08:18)
[2020-04-29] MEDS ORDERED: LIDOCAINE 1% INJ 10MG/ML (20 ML MDV) ONE (08:18)
--- NOTE | 2020-04-29 08:21 | P.GSHP ---
History of Present Illness H&P Date: 04/29/20 CHIEF COMPLAINT: Gastrointestinal bleeding HISTORY OF PRESENT ILLNESS: The patient is a 65-year-old female who presents with gastrointestinal bleeding. Upper and lower endoscopy were offered for further evaluation and management. PAST MEDICAL HISTORY: Please see list. PAST SURGICAL HISTORY: Please see list. MEDICATIONS: Please see list. ALLERGIES: Please see list. SOCIAL HISTORY: No illicit drug use FAMILY HISTORY: No reports of Crohn disease or ulcerative colitis. REVIEW OF ORGAN SYSTEMS: CONSTITUTIONAL: No reports of fevers or chills. PHYSICAL EXAM: VITAL SIGNS: Stable GENERAL: Well-developed pleasant in no acute distress. HEENT: No scleral icterus. Extraocular movements grossly intact. Moist buccal mucosa. NECK: Supple without lymphadenopathy. CHEST: Unlabored respirations. Equal bilateral excursions. CARDIOVASCULAR: Regular rate and rhythm. Distal 2+ pulses. ABDOMEN: Soft, nondistended. MUSCULOSKELETAL: No clubbing, cyanosis, or edema. ASSESSMENT: 1. Gastrointestinal bleeding PLAN: 1. Recommend proceeding with an upper and lower endoscopy Past Medical History Past Medical History: Diabetes Mellitus, GERD/Reflux, GI Bleed, Hyperlipidemia, Hypertension, Renal Disease, Thyroid Disorder Additional Past Medical History / Comment(s): Hiatal hernia, diverticulitis w/ lower GI bleed, gastric stricture/dysphagia w/ dilation, gastric benign polyp, NIDDM type II-no longer on meds since wt loss, GI bleed in "old stomach" (hx gastric bypass, GI bleed R/T stomach that is not used). current rectal bleeding/abdominal pain, "borderline cholesterol", History of Any Multi-Drug Resistant Organisms: None Reported Past Surgical History: Adenoidectomy, Bariatric Surgery, Breast Surgery, Cholecystectomy, Hysterectomy, Tonsillectomy, Tubal Ligation Additional Past Surgical History / Comment(s): R nephrectomy(congental defect)/ureterectomy, thyroidectomy, Immanuel en Y gastric bypass EGD with dilation, colonoscopy, hysteroscopy D&C x2, Rt breast benign biopsy; Past Anesthesia/Blood Transfusion Reactions: Previous Problems w/ Anesthesia, Motion Sickness, Postoperative Nausea & Vomiting (PONV) Additional Past Anesthesia/Blood Transfusion Reaction / Comment(s): Hard time awakening from anesthesia Smoking Status: Former smoker - Past Family History Father Family Medical History: Cancer Additional Family Medical History / Comment(s): LUNG Mother Family Medical History: Cancer Additional Family Medical History / Comment(s): BREAST Sister(s) Family Medical History: Cancer Additional Family Medical History / Comment(s): 2 SISTER HAD BREAST CANCER Brother(s) Family Medical History: Myocardial Infarction (ME) Additional Family Medical History / Comment(s): Brother is living. He had a ME at the age of 50yrs. Medications and Allergies Home Medications Medication Instructions Recorded Confirmed Type buPROPion XL [Wellbutrin XL] 300 mg PO DAILY 07/29/18 04/29/20 History amLODIPine [Norvasc] 10 mg PO DAILY 02/25/19 04/29/20 History Omeprazole [PriLOSEC] 40 mg PO DAILY 11/12/19 04/29/20 History Atorvastatin [Lipitor] 5 mg PO DAILY 04/28/20 04/29/20 History Levothyroxine Sodium [Synthroid] 25 mcg PO DAILY 04/28/20 04/29/20 History Levothyroxine Sodium [Synthroid] 200 mcg PO DAILY 04/28/20 04/29/20 History Sucralfate [Carafate] 1 gm PO BID 04/28/20 04/29/20 History Allergies Allergy/AdvReac Type Severity Reaction Status Date / Time prednisone Allergy Rash/Hives/ Verified 04/29/20 07:27 swelling Surgical - Exam Vital Signs Temp Pulse Resp BP Pulse Ox 97.6 F 88 16 126/62 97 04/29/20 07:34 04/29/20 07:34 04/29/20 07:34 04/29/20 07:34 04/29/20 07:34 Results - Labs Abnormal Lab Results - Last 24 Hours (Table) 04/29/20 Range/Units 07:49 POC Glucose (mg/dL) 134 H (75-99) mg/dL
--- NOTE | 2020-04-29 09:01 | P.PCN ---
Date of Procedure: 04/29/20 Description of Procedure: PREOPERATIVE DIAGNOSIS: Gastrointestinal bleeding POSTOPERATIVE DIAGNOSIS: Gastrointestinal bleeding Internal and external hemorrhoids Moderate to severe sigmoid diverticulosis without active bleeding OPERATION: Colonoscopy to the ascending colon SURGEON: Qian Murray MD. ANESTHESIA: MAC. INDICATIONS: The patient is a 65-year-old female who presents with gastrointestinal bleeding. Benefits and risks were described and informed consent was obtained. DESCRIPTION OF PROCEDURE: The patient had undergone Suprep. She had been brought into the operating room and laid in the left lateral decubitus position. After adequate intravenous sedation, the rectum was examined with 2% lidocaine jelly. External hemorrhoids were encountered. The rectal tone was within normal limits. No lesions were palpated in the rectal vault. An Olympus colonoscope was advanced until the ce cum, ileocecal valve and appendiceal orifice were clearly viewed. The prep was excellent. Severe sigmoid diverticulosis with moderate redundancies identified. Despite multiple maneuvers and abdominal pressure, scope was advanced to the ascending colon without clear view of the cecum. No active bleeding was found. Adenoma along the 3-mm ascending colon was identified however unable to retrieve. No evidence of focal colitis was found. Retroflexion of the scope demonstrated grade 2 internal hemorrhoids without active bleeding or inflammation. The colon was desufflated. The patient had tolerated the procedure well. Withdrawal time was over 6 minutes. FINDINGS: Aronchick preparation quality scale 1 (1-5) Internal hemorrhoids, grade 2 External prolapsed hemorrhoids. No arteriovenous malformations. Ascending adenoma unable to retrieve No focal colitis. RECOMMENDATIONS: Repeat colonoscopy 3 years, 2023 Plan - Discharge Summary New Discharge Prescriptions: Continue buPROPion XL [Wellbutrin XL] 300 mg PO DAILY amLODIPine [Norvasc] 10 mg PO DAILY Omeprazole [PriLOSEC] 40 mg PO DAILY Sucralfate [Carafate] 1 gm PO BID Levothyroxine Sodium [Synthroid] 25 mcg PO DAILY Levothyroxine Sodium [Synthroid] 200 mcg PO DAILY Atorvastatin [Lipitor] 5 mg PO DAILY Discharge Medication List buPROPion XL [Wellbutrin XL] 300 mg PO DAILY 07/29/18 [History] amLODIPine [Norvasc] 10 mg PO DAILY 02/25/19 [History] Omeprazole [PriLOSEC] 40 mg PO DAILY 11/12/19 [History] Atorvastatin [Lipitor] 5 mg PO DAILY 04/28/20 [History] Levothyroxine Sodium [Synthroid] 25 mcg PO DAILY 04/28/20 [History] Levothyroxine Sodium [Synthroid] 200 mcg PO DAILY 04/28/20 [History] Sucralfate [Carafate] 1 gm PO BID 04/28/20 [History] Follow up Appointment(s)/Referral(s): Qian Murray MD [STAFF PHYSICIAN] - 05/04/20 Patient Instructions/Handouts: Diverticulosis Diet (GEN), Diverticulosis (DC), Colorectal Polyps (DC) Activity/Diet/Wound Care/Special Instructions: Repeat colonoscopy 3 years, 2023 Discharge Disposition: HOME SELF-CARE
--- NOTE | 2020-04-29 09:13 | P.PCN ---
Date of Procedure: 04/29/20 Description of Procedure: PREOPERATIVE DIAGNOSES: 1. Gastrointestinal bleeding 2. History of gastrojejunal ulcers with bleeding 3. Epigastric abdominal POSTOPERATIVE DIAGNOSES: 1. Gastrointestinal bleeding 2. History of gastrojejunal ulcers with bleeding PROCEDURE PERFORMED: Esophagogastrojejunoscopy. SURGEON: Qian Murray MD ANESTHESIA: MAC. INDICATIONS: The patient is a 65-year-old female who presents with gastrointestinal bleeding with prior gastrojejunal ulceration. She presents with persistent gastrointestinal bleeding, upper endoscopy was offered for further evaluation and management. DESCRIPTION: Patient was brought to the endoscopy suite and laid in the left lateral decubitus position. After adequate IV sedation, a bite block was placed. An Olympus gastroscope was passed along the posterior oropharynx down to the distal esophagus where the squamocolumnar junction was unremarkable. The gastric pouch was 7 cm long. The scope was advanced 60 cm from the incisors. No evidence of foreign body was found. No evidence of active gastrojejunal ulcerations were encountered. The GI tract was desufflated. The patient tolerated the procedure well. FINDINGS: 1. No acute gastrojejunal ulceration. 2. No foreign body found along the anastomosis. PLAN: 1. Recommend upper endoscopy as needed.
[2020-04-29 09:15] VITALS: BP 115/82; PULSE 68; RESP 16
== END 2020-04-29 09:25 | disposition home or self-care (01) ==
LOC: ORWHC2ENDO 07:09
PROVIDERS: ATTEND Surgery Plastic and Reconstructive Surgery
DX: K57.31 Diverticulosis of large intestine without perforation or abscess with bleeding (principal); D12.2 Benign neoplasm of ascending colon; K64.1 Second degree hemorrhoids; K64.8 Other hemorrhoids; R10.13 Epigastric pain; E11.9 Type 2 diabetes mellitus without complications; K21.9 Gastro-esophageal reflux disease without esophagitis; E78.5 Hyperlipidemia, unspecified; I10 Essential (primary) hypertension; K44.9 Diaphragmatic hernia without obstruction or gangrene; E89.0 Postprocedural hypothyroidism; N28.9 Disorder of kidney and ureter, unspecified; F41.9 Anxiety disorder, unspecified; Z87.11 Personal history of peptic ulcer disease; Z88.8 Allergy status to other drugs, medicaments and biological substances; Z87.19 Personal history of other diseases of the digestive system; Z98.84 Bariatric surgery status; Z90.89 Acquired absence of other organs; Z98.890 Other specified postprocedural states; Z90.49 Acquired absence of other specified parts of digestive tract; Z90.710 Acquired absence of both cervix and uterus; Z98.51 Tubal ligation status; Z90.5 Acquired absence of kidney; Z90.6 Acquired absence of other parts of urinary tract; Z91.89 Other specified personal risk factors, not elsewhere classified; Z87.898 Personal history of other specified conditions; Z87.891 Personal history of nicotine dependence; Z79.899 Other long term (current) drug therapy; Z79.890 Hormone replacement therapy; Z80.1 Family history of malignant neoplasm of trachea, bronchus and lung; Z80.3 Family history of malignant neoplasm of breast; Z82.49 Family history of ischemic heart disease and other diseases of the circulatory system
CPT/HCPCS: 45378; 43235; J2001; J2704

== ENCOUNTER → 2020-06-11 | Outpatient (CLI) | payer OTHER ==
[2020-06-11 14:42] LABS: HCT 42.7 % (34.0-46.0); HGB 14.5 gm/dL (11.4-16.0); MCH 31.1 pg (25.0-35.0); MCHC 33.9 g/dL (31.0-37.0); Mean Platelet Volume 8.7; Platelet Count 158 k/uL (150-450); RBC 4.65 m/uL (3.80-5.40); RDW 13.8 % (11.5-15.5); WBC 6.2 k/uL (3.8-10.6)
[2020-06-11 14:55] LABS: Albumin 4.1 g/dL (3.5-5.0); Calcium 8.9 mg/dL (8.4-10.2); Potassium 4.1 mmol/L (3.5-5.1); Total Bilirubin 0.4 mg/dL (0.2-1.3); Total Protein 7.1 g/dL (6.3-8.2)
== END ==
LOC: LABPAT 14:06
PROVIDERS: ATTEND Surgery Plastic and Reconstructive Surgery
DX: Z01.812 Encounter for preprocedural laboratory examination (principal)
CPT/HCPCS: 80053; 85027

== ENCOUNTER 2020-06-16 07:54 | Inpatient (IN) | payer OTHER ==
--- NOTE | 2020-06-16 07:12 | P.GSHP ---
History of Present Illness H&P Date: 06/16/20 CHIEF COMPLAINT: History of sigmoid diverticulitis HISTORY OF PRESENT ILLNESS: The patient is a 65-year-old female who presents with severe diverticulosis and recurrent gastrointestinal bleeding due to diverticulosis including diverticulitis. Last hospitalization was less than 4 months ago. In less than 12 months she's had more than 4+ episodes of recurrent GI bleed. She has pre-existing history of incomplete colonoscopies. She presents for completion colonoscopy and sigmoid colon resection. PAST MEDICAL HISTORY: Please see list, reviewed, and agree PAST SURGICAL HISTORY: Please see list, reviewed, and agree MEDICATIONS: Please see list, reviewed, and agree ALLERGIES: Please see list, reviewed, and agree SOCIAL HISTORY: Please see list, reviewed, and agree FAMILY HISTORY: No reports of Crohn disease or ulcerative colitis. REVIEW OF ORGAN SYSTEMS: Gastrointestinal: History of recurrent gastrointestinal bleeds, at least twice a year. The last event was less than one month ago. CONSTITUTIONAL: No fevers or chills. Morbid obesity due to excess calories, BMI over 40. Lifetime weight loss over 100+ pounds following gastric bypass. EYES: Denies any trouble with vision. No glasses. HEENT: No difficulties with hearing. No nosebleeds. No difficulty swallowing. RESPIRATORY: Denies pneumonia. Denies any troubles with breathing or dyspnea on exertion. CARDIOVASCULAR: Denies any chest pain, palpitations, or recent heart attacks. Has hypertensive heart disease. GASTROINTESTINAL: Denies fatty food intolerance. Has change in bowel habits and gas bloat. Has diverticulosis. History of gastric ulcers. GENITOURINARY: Denies any blood in urine or increased urinary frequency. NEUROLOGICAL: Denies any numbness or tingling along the distal extremities. No seizure disorders or headaches. MUSCULOSKELETAL: Has back pain, stiffness or joint arthritis. SKIN: No current skin cancer. No rash. PSYCHIATRIC: Has depressive disorder. No suicidal thoughts. ENDOCRINE: Has thyroid disorders with past thyroid cancer. Denies any blood sugar glucose intolerance. HEME/LYMPHATIC: Denies any lumps and bumps around the neck. No recent deep venous thrombosis. ALLERGY/IMMUNOLOGY: No immunoglobulin therapy. No immune deficiencies. BREAST: Denies current breast lumps, pain or nipple discharge. PHYSICAL EXAM: Patient is a 65-year-old female. VITALS: Reviewed CONSTITUTIONAL: Well developed and in no acute distress. EYES: Conjuctivae without sclera icterus. Extraocular movements grossly intact. HEAD, EARS, NOSE, THROAT: Moist buccal mucosa. Head is atraumatic, normocephalic. Hears conversational speech. No nasal drainage. NECK: Supple. No JV distention. No thyroidomegaly. RESPIRATORY: Non-labored respirations and equal bilateral excursions. No gross wheezes. CARDIOVASCULAR: Regular rate and rhythm. Extremities without moderate edema. Palpable 2+ radial pulses. ABDOMEN: Soft. Non-tender. Nondistended. Protuberant. LYMPH: No neck lymphadenopathy. MUSCULOSKELETAL: Range of motion bilateral upper extremities within normal limits. Nail and fingers with good capillary refill. SKIN: Warm and well perfused with good skin turgor. NEUROLOGIC: Cranial nerves II through XII grossly intact. No focal or lateralizing signs. PSYCH: Appropriate affect. Alert and oriented to person, place and time. Displays appropriate insight. ASSESSMENT: 1. History of recurrent GI bleed, sigmoid diverticulosis 2. Morbid obesity, BMI 41.9 PLAN: 1. Benefits and risks of surgical robotic sigmoid resection was reviewed in detail. Robotic-assisted approach was also described. 2. Enhanced colon recovery program. 3. DVT prophylaxis. 4. Antibiotic prophylaxis. 5. Inpatient hospitalization greater than 2 nights. 6. Colonoscopy described for diagnostic and therapeutic assessment. Past Medical History Past Medical History: Diabetes Mellitus, GERD/Reflux, GI Bleed, Hyperlipidemia, Hypertension, Renal Disease, Thyroid Disorder Additional Past Medical History / Comment(s): Hiatal hernia, diverticulitis w/ lower GI bleed, gastric stricture/dysphagia w/ dilation, gastric benign polyp, NIDDM type II-no longer on meds since wt loss, GI bleed in "old stomach" (hx gastric bypass, GI bleed R/T stomach that is not used). HAS ONE KIDNEY History of Any Multi-Drug Resistant Organisms: None Reported Past Surgical History: Adenoidectomy, Bariatric Surgery, Breast Surgery, Cholecystectomy, Hysterectomy, Tonsillectomy, Tubal Ligation Additional Past Surgical History / Comment(s): R nephrectomy(congental defect)/ureterectomy, thyroidectomy, Immanuel en Y gastric bypass EGD with dilation, colonoscopy, hysteroscopy D&C x2, Rt breast benign biopsy; Past Anesthesia/Blood Transfusion Reactions: Previous Problems w/ Anesthesia, Motion Sickness, Postoperative Nausea & Vomiting (PONV) Additional Past Anesthesia/Blood Transfusion Reaction / Comment(s): Hard time awakening from anesthesia-" TAKES LONGER TO WAKE UP" Smoking Status: Former smoker - Past Family History Father Family Medical History: Cancer Additional Family Medical History / Comment(s): LUNG Mother Family Medical History: Cancer Additional Family Medical History / Comment(s): BREAST Sister(s) Family Medical History: Cancer Additional Family Medical History / Comment(s): 2 SISTER HAD BREAST CANCER Brother(s) Family Medical History: Myocardial Infarction (OR) Additional Family Medical History / Comment(s): Brother is living. He had a OR at the age of 50yrs. Medications and Allergies Home Medications Medication Instructions Recorded Confirmed Type buPROPion XL [Wellbutrin XL] 300 mg PO DAILY 07/29/18 06/15/20 History Omeprazole [PriLOSEC] 40 mg PO DAILY 11/12/19 06/15/20 History Atorvastatin [Lipitor] 5 mg PO DAILY 04/28/20 06/15/20 History Levothyroxine Sodium [Synthroid] 25 mcg PO DAILY 04/28/20 06/15/20 History Levothyroxine Sodium [Synthroid] 200 mcg PO DAILY 04/28/20 06/15/20 History Sucralfate [Carafate] 1 gm PO BID 04/28/20 06/15/20 History Cholecalciferol [Vitamin D3 (25 25 mcg PO DAILY 06/14/20 06/15/20 History Mcg = 1000 Iu)] Cyanocobalamin [Vitamin B-12] 500 mcg PO DAILY 06/14/20 06/15/20 History Magnesium 250 mg PO DAILY 06/14/20 06/15/20 History Multivitamins, Thera [Multivitamin 1 tab PO DAILY 06/14/20 06/15/20 History (formulary)] Vitamin A 8,000 unit PO DAILY 06/14/20 06/15/20 History Zinc 50 mg PO DAILY 06/14/20 06/15/20 History lisinopriL [Zestril] 5 mg PO DAILY 06/14/20 06/15/20 History polyethylene glycoL 3350 [Miralax] 17 gm PO DAILY 06/14/20 06/15/20 History Allergies Allergy/AdvReac Type Severity Reaction Status Date / Time prednisone Allergy Rash/Hives/ Verified 06/14/20 15:56 swelling
[~2020-06-16 07:54] MED LIST changes: -LACTATED RINGERS 1,000 ML IV SCH
[2020-06-16 08:50] LABS: Glucose,Whole Blood 123 mg/dL (75-99)
[2020-06-16] MEDS: LACTATED RINGERS 1,000 ML IV SCH (08:51)
[2020-06-16] MEDS ORDERED: LIDOCAINE 1% INJ 10MG/ML (20 ML MDV) ONE (08:52)
[2020-06-16] MEDS ORDERED: PROPOFOL 10 MG/ML 20 ML VIAL IV ONE (08:52)
[2020-06-16] MEDS ORDERED: Antibiotics per Pharmacy 1 EACH MISC MISCELLANE PRN (09:13)
[2020-06-16] MEDS ORDERED: IV FLUID CONTINUATION 800 ML IV ONE (09:14)
[2020-06-16] MEDS ORDERED: SODIUM CHLORIDE 0.9% 2,000 ML IV ONE (09:15)
--- NOTE | 2020-06-16 09:22 | P.PCN ---
Date of Procedure: 06/16/20 Description of Procedure: PREOPERATIVE DIAGNOSIS: History of GI bleed due to diverticulosis History of diverticulitis POSTOPERATIVE DIAGNOSIS: History of GI bleed due to diverticulosis History of diverticulitis OPERATION: Colonoscopy to the ascending colon SURGEON: Qian Murray MD. ANESTHESIA: MAC. INDICATIONS: The patient is a 65-year-old female who presents with history of recurrent GI bleed due to diverticulosis. Her endoscopy results for further assessment including diagnostic and therapeutic management. Benefits and risks were described and informed consent was obtained. DESCRIPTION OF PROCEDURE: The patient had undergone Suprep tabs. The patient had been brought into the operating room and laid in the left lateral decubitus position. After adequate intravenous sedation, the rectum was examined with 2% lidocaine jelly. External hemorrhoids were encountered. The rectal tone was within normal limits. No lesions were palpated in the rectal vault. An Olympus colonoscope was advanced through extremely highly tortuous sigmoid colon with severe large mouth diverticulosis throughout the colon. Despite abdominal pressure including patient positioning, scope could not advance beyond the ascending colon. The prep was good. No large colonic polyps were found. No evidence of focal colitis was found. Retroflexion of the scope demonstrated grade 2 internal hemorrhoids without active bleeding or inflammation. The colon was desufflated. The patient had tolerated the procedure well. Withdrawal time was over 6 minutes. FINDINGS: Aronchick preparation quality scale 2 (1-5) Internal hemorrhoids, grade 2 External prolapsed hemorrhoids, grade 2 No arteriovenous malformations. No adenomatous polyps. No focal colitis. Severe sigmoid diverticulosis including sidhu diverticulosis Highly redundant sigmoid colon preventing advance the scope. RECOMMENDATIONS: 1. Patient being admitted for partial colectomy due to recurrent GI bleeds
[2020-06-16 11:16] LABS: Basophils % (A) 1 %; Eosinophils # (A) 0.1 k/uL (0-0.7); Eosinophils % (A) 3 %; HCT 43.8 % (34.0-46.0); HGB 14.4 gm/dL (11.4-16.0); Lymphocytes % (A) 22 %; MCH 30.4 pg (25.0-35.0); MCHC 32.9 g/dL (31.0-37.0); MCV 92.4 fL (80.0-100.0); Monocytes # (A) 0.3 k/uL (0-1.0); Monocytes % (A) 6 %; Neutrophils # (A) 3.1 k/uL (1.3-7.7); Neutrophils % (A) 67 %; Platelet Count 146 k/uL (150-450); RBC 4.74 m/uL (3.80-5.40); RDW 13.6 % (11.5-15.5); WBC 4.7 k/uL (3.8-10.6)
[2020-06-16 11:31] LABS: Albumin 3.8 g/dL (3.5-5.0); Calcium 8.6 mg/dL (8.4-10.2); Potassium 4.3 mmol/L (3.5-5.1); Total Bilirubin 0.5 mg/dL (0.2-1.3); Total Protein 6.5 g/dL (6.3-8.2)
[2020-06-16] MEDS ORDERED: POLYETHYLENE GLYCOL LYTES SOLN 4,000 ML SOLN.RECON PO ONE (16:00)
[2020-06-16] MEDS: metroNIDAZOLE 500 MG TAB PO SCH ×2 (16:21→22:23)
[2020-06-16] MEDS: NEOMYCIN 500 MG TAB PO SCH ×2 (16:22→22:23)
--- NOTE | 2020-06-16 17:44 | XR ---
EXAMINATION TYPE: XR chest 2V DATE OF EXAM: 06/16/2020 COMPARISON: 02/28/2019 HISTORY: Preop TECHNIQUE: 2 views FINDINGS: Heart and mediastinum are normal. Lungs are clear. Diaphragm is normal. Bony thorax appears normal. IMPRESSION: Normal chest. No change
--- NOTE | 2020-06-16 20:17 | P.PN ---
Progress Note - Text Progress Note Date: 06/16/20 Patient seen and evaluated. Surgical planning reviewed with robotic sigmoid colectomy. Continue with bowel prep. Inpatient hospitalization 3-5 days described.
[2020-06-16] MEDS ORDERED: TEMAZEPAM 15 MG CAP PO ONE (21:00)
[2020-06-17] MEDS ORDERED: metroNIDAZOLE-NS PMX 500 MG in SALINE 1 100ML.BAG IVPB PRN (05:00)
[2020-06-17] MEDS ORDERED: HEPARIN SODIUM,PORCINE 5,000 UNIT/ML 1 ML VIAL SQ PRN (07:00)
[2020-06-17] MEDS ORDERED: ACETAMINOPHEN TAB 500 MG TAB PO PRN (07:00)
[2020-06-17] MEDS ORDERED: MELOXICAM 7.5 MG TAB PO PRN (07:00)
[2020-06-17] MEDS ORDERED: ALVIMOPAN 12 MG CAPSULE PO PRN (07:00)
[2020-06-17] MEDS ORDERED: PROPOFOL 10 MG/ML 20 ML VIAL IV ONE (07:38)
[2020-06-17] MEDS ORDERED: HYDROmorphone (PF) 1 MG/ML ONE (07:38)
[2020-06-17] MEDS ORDERED: fentaNYL (PF) 50 MCG/ML 2 ML AMP ONE (07:38)
[2020-06-17] MEDS ORDERED: NEOSTIGMINE 1 MG/ML 10 ML VIAL ONE (07:38)
[2020-06-17] MEDS ORDERED: ROPIVACAINE 5 MG/ML 30 ML VIAL ONE (07:38)
[2020-06-17] MEDS ORDERED: LIDOCAINE 1% INJ 10MG/ML (20 ML MDV) ONE (07:38)
[2020-06-17] MEDS ORDERED: SUCCINYLCHOLINE CHLORIDE VIAL 200 MG/10 ML VIAL IV ONE (07:38)
[2020-06-17] MEDS ORDERED: GLYCOPYRROLATE 0.2 MG/ML 2 ML VIAL ONE (07:38)
[2020-06-17] MEDS ORDERED: ROCURONIUM 10 MG/ML (5 ML VIAL) IV ONE (07:38)
--- NOTE | 2020-06-17 08:22 | P.ANPRN ---
Procedure Note - Anesthesia - Nerve Block Performed Bilateral Erector Spinae Single Time Out Performed: Yes ([id number]) Date of Procedure: 06/17/20 Procedure Start Time: 07:17 Procedure Stop Time: 07:24 Location of Patient: PreOp Indication: Acute Post-Operative Pain, Requested by Surgeon Specifically requested for management of pain by DrNiels: Lima Bishop Sedation Type: Sedate with meaningful contact maintained Preparation: Sterile Prep Position: Supine Catheter: None Needle Types: Pajunk Needle Gauge: 21 Ultrasound used to visualize needle placement: Yes Ultrasound used to observe medication spread: Yes Injectate: 0.5% Ropivacaine (see comment for volume) (15cc and NACL 15cc each side) Blood Aspirated: No Pain Paresthesia on Injection Noted: No Resistance on Injection: Normal Image Stored and Saved: Yes Events: Uneventful and Well Tolerated
[2020-06-17] MEDS ORDERED: BUPIVACAIN-EPI 0.5%-1:200,000 30 ML VIAL SQ ONE (08:31)
[2020-06-17] MEDS ORDERED: LACTATED RINGERS 1,000 ML IV ONE (09:08)
[2020-06-17 11:23] LABS: Basophils # (A) 0.06 X 10*3/uL (0.00-0.10); Basophils % (A) 1.1 %; Eosinophils # (A) 0.13 X 10*3/uL (0.04-0.35); Eosinophils % (A) 2.5 %; HCT 45.1 % (37.2-46.3); HGB 14.2 g/dL (12.0-15.0); Lymphocytes # (A) 0.95 X 10*3/uL (0.90-5.00); Lymphocytes % (A) 18.2 %; MCH 29.6 pg (27.0-32.0); MCHC 31.5 g/dL (32.0-37.0); Monocytes # (A) 0.36 X 10*3/uL (0.20-1.00); Monocytes % (A) 6.9 %; Neutrophils # (A) 3.71 X 10*3/uL (1.80-7.70); Neutrophils % (A) 70.9 %; Platelet Count 168 X 10*3/uL (140-440); RDW 13.9 % (11.5-14.5); WBC 5.23 X 10*3/uL (4.50-10.00)
[2020-06-17 11:53] LABS: African American GFR (CKD) 69.4 (60.0-200.0); Anion Gap 11.6 mmol/L (4.00-12.00); Carbon Dioxide 24.4 mmol/L (21.6-31.8); Non-African American GFR(CKD) 59.9 (60.0-200.0); Potassium 4.2 mmol/L (3.5-5.5)
[2020-06-17] MEDS ORDERED: METOCLOPRAMIDE 5 MG/ML 2 ML VIAL IVP PRN (13:49)
[2020-06-17] MEDS ORDERED: BENZOCAINE/MENTHOL LOZENG 1 EACH LOZENGE MUCOUS MEM PRN (13:49)
[2020-06-17] MEDS: HYDROmorphone 0.5 MG/0.5 ML SYRINGE IVP ONE ×2 (13:52→14:01)
--- NOTE | 2020-06-17 14:06 | P.OP ---
Date of Procedure: 06/17/20 Description of Procedure: SURGEON: DION GARCIA MD PREOPERATIVE DIAGNOSES: 1. Recurrent gastrointestinal bleeding due to sigmoid diverticulitis 2. Morbid obesity due to excess calories, BMI 40.1 3. History of gastric bypass 4. Hypertensive heart disease 5. History of thyroid cancer 6. Hypothyroidism 7. Depressive disorder 8. Congenital left kidney 9. Hyperlipidemia 10. Postoperative nausea and vomiting POSTOPERATIVE DIAGNOSES: 1. Recurrent gastrointestinal bleeding due to sigmoid diverticulitis 2. Morbid obesity due to excess calories, BMI 40.1 3. History of gastric bypass 4. Hypertensive heart disease 5. History of thyroid cancer 6. Hypothyroidism 7. Depressive disorder 8. Congenital signal kidney 9. Hyperlipidemia 10. Postoperative nausea or vomiting 11. Severe epigastric and midline adhesions 12. Incarcerated incisional ventral hernia, right upper quadrant OPERATION: 1. Robotic-assisted daVinci Xi laparoscopic lysis of adhesions over 1 hour 2. Robotic-assisted daVinci Xi laparoscopic with sigmoid colectomy and low anterior resection using 29mm EEA Ethicon powered stapler 3. Intraoperative colonoscopy for flexible sigmoidoscopy Anesthesia: GETA, local, epidural Estimated Blood Loss (ml): 30 Pathology: other (Sigmoid colon, anastomosis, partial colectomy) Condition: stable Disposition: floor COMPLICATIONS: None. Operative Findings: 1. Severe epigastric upper midline adhesions from previous cholecystectomy 2. Incarcerated incisional hernia, right upper quadrant identified 3. Resolved phlegmon left lower quadrant from previous diverticulitis 4. Highly redundant sigmoid colon including splenic flexure INDICATIONS: The patient is a 65-year-old female with recurrent gastrointestinal bleeding due to sigmoid diverticulitis. Surgical intervention was described. Benefits and risks, including infection, bowel injury, ureteral injury, c olostomy creation and possibility for additional surgery was discussed at length. Informed consent was obtained. All questions of the patient and family were answered. DESCRIPTION: Earlier the patient had undergone a bowel prep using the enhanced colon recovery program. The patient was transferred to the operating room onto a split leg table and repositioned to modified lithotomy following intubation. A Lanier catheter was placed. The abdomen was then prepped and draped in standard sterile fashion as Ioban was placed along the abdomen to minimize any contamination of skin floor. After a timeout protocol was performed, attention was then brought to the left upper quadrant whereby a 0 degree 5 mm laparoscopic trocar entry was performed. The abdominal cavity was entered and insufflated to 15 mmHg pressure, which was tolerated well. Diagnostic laparoscopy confirmed severe adhesions omentum to abdominal wall involving the right upper quadrant, midline, epigastrium. Next trocars were placed 20 cm superior from the pelvis. A 12-mm trocar was placed along the right lateral abdominal wall. A 8 mm port was placed along the right upper quadrant. Ports were placed 10 cm apart from each other including 15-20 cm away from the target anatomy of the left pelvis. The 5-mm port was exchanged for an 8 mm robotic port. The stapler 12-mm port was arranged along the left lateral abdominal wall. The patient was then placed in Trendelenburg position, at least 21. The robotic da Jitendra XI system was primed. The robot was docked from the right side of the patient. Using atraumatic graspers and vessel sealer, the robotic system was docked and primed as described. Instruments were interchanged by the bindery assistant including needle furniture delivery driver, clip multimedia producer, hook cautery, robotic stapler and vessel sealer. The robot stapler was prepared along the right lateral abdominal wall. Initial attention was brought to lysis of adhesions involving the epigastrium, midline and right upper quadrant. Lysis of adhesions was performed using vessel sealer. Peritoneal abdominal wall right upper quadrant defect consistent with an incarcerated incisional ventral hernia involving omentum was lysed. Lysis of adhesion occurred for 1 hour. Next, attention was brought to sigmoid colon. The sigmoid mesentery was mobilized using a vessel sealer. Using multiple fires of the robot stapler 60 mm black and green loads, the descending colon was divided. Mobilization of the colon was performed to the pelvic brim along the sacral promontory. The mesentery of the sigmoid colon was mobilized towards the descending colon using a vessel sealer. Next, the top of the rectum was divided using robotic stapler 60 mm black and green loads. The rest of the sigmoid colon mesentery was mobilized using vessel sealer. The sigmoid colon and mesentery was moderately bulky from recurrent inflammation. Additionally, the sigmoid colon was mobilized onto the colon to minimize injury to the ureters. I went to the foot of the bed for selection of a sizer. A colorectal colon anastomosis with an EEA 29-mm was selected after using a sizer along the rectum. For the proximal sigmoid colon, a 29-mm anvil was placed after creating a colotomy then closed using a stapler at the distal end. The robot arms were temporarily undocked. A stapler was entered along the rectum and mated to the anvil for 1 minute. The anastomosis was created. The donuts were thick on the rectum side and then on the colon side. I then performed a bedside flexible sigmoidoscopy using colonoscope where no leaks or defects were confirmed as the bindery assistant placed normal saline along the pelvis. I re-scrubbed into the case. Irrigation fluid was suctioned from the abdomen. The robot was undocked. All needles were removed from the abdominal cavity. Via the stapler site 12-mm left upper quadrant, the resected colon and stapled colotomy--was removed using an Endo Catch bag--with the rest of the specimen brought out through the 12 mm trocar of the left upper quadrant after widening the skin incision to 4-cm. The fascial defect was oversewn using 0 Vicryl and a Carlos Romo. All incisions were copiously irrigated using dilute normal saline and hydrogen peroxide mixture. Next all pneumoperitoneum was evacuated from the abdominal cavity. The 8-mm trocar sites were reapproximated using 4-0 Monocryl in an interrupted subcuticular fashion. Local anesthetic was infiltrated to all wounds for postop analgesia. All incisions were also cleansed with diluted hydrogen peroxide. An Optifoam surgical dressing was placed over the colon extraction site. Exofin was applied to the rest of the skin incisions. The patient was extubated successfully. The patient was transferred to the postanesthesia care unit in stable condition.
[2020-06-17] MEDS: LACTATED RINGERS 1,000 ML IV SCH (15:09)
[2020-06-17] MEDS ORDERED: ARTIFICIAL TEARS-HYPROMELLOSE DROPS 15 ML BTL BOTH EYES PRN (16:26)
[2020-06-17] MEDS: ONDANSETRON 4 MG/2 ML VIAL IVP SCH ×2 (17:12→23:37)
[2020-06-17] MEDS: D5-0.45% NACL WITH KCL 20MEQ/L 1,000 ML IV SCH ×2 (17:13→23:36)
[2020-06-17] MEDS: metroNIDAZOLE-NS PMX 500 MG in SALINE 1 100ML.BAG IVPB SCH (17:13)
[2020-06-17] MEDS: HEPARIN SODIUM,PORCINE 5,000 UNIT/ML 1 ML VIAL SQ SCH (21:08)
[2020-06-17] MEDS: ALVIMOPAN 12 MG CAPSULE PO SCH (21:08)
[2020-06-17] MEDS: HYDROmorphone 1 MG/ML 1 ML SYRINGE IVP PRN (21:09)
[2020-06-18] MEDS: metroNIDAZOLE-NS PMX 500 MG in SALINE 1 100ML.BAG IVPB SCH ×3 (00:17→12:11)
[2020-06-18] MEDS: HYDROmorphone 1 MG/ML 1 ML SYRINGE IVP PRN ×3 (03:26→19:40)
[2020-06-18] MEDS ORDERED: SODIUM CHLORIDE 0.9% 1,000 ML IV ONE (05:08)
[2020-06-18] MEDS: LEVOTHYROXINE 100 MCG TAB PO SCH (05:41)
[2020-06-18] MEDS: LEVOTHYROXINE 25 MCG TAB PO SCH (05:41)
[2020-06-18] MEDS: ONDANSETRON 4 MG/2 ML VIAL IVP SCH ×4 (05:41→23:34)
[2020-06-18] MEDS: LACTATED RINGERS 1,000 ML IV SCH (05:50)
[2020-06-18 07:06] LABS: Basophils % (A) 0 %; Eosinophils % (A) 0 %; HCT 32.3 % (34.0-46.0); Lymphocytes # (A) 0.8 k/uL (1.0-4.8); Lymphocytes % (A) 8 %; MCH 30.7 pg (25.0-35.0); MCHC 32.9 g/dL (31.0-37.0); MCV 93.1 fL (80.0-100.0); Mean Platelet Volume 9.3; Monocytes # (A) 0.7 k/uL (0-1.0); Monocytes % (A) 7 %; Neutrophils % (A) 83 %; Platelet Count 168 k/uL (150-450); RBC 3.47 m/uL (3.80-5.40); RDW 13.6 % (11.5-15.5); WBC 9.7 k/uL (3.8-10.6)
[2020-06-18 07:14] LABS: African American GFR (CKD) 51 (>60 ml/min/1.73 sqM); Anion Gap 4 mmol/L; Blood Urea Nitrogen 15 mg/dL (7-17); Calcium 7.1 mg/dL (8.4-10.2); Carbon Dioxide 23 mmol/L (22-30); Chloride 107 mmol/L (98-107); Glucose 151 mg/dL (74-99); Non-African American GFR(CKD) 44 (>60 ml/min/1.73 sqM); Potassium 4.1 mmol/L (3.5-5.1); Sodium 134 mmol/L (137-145)
[2020-06-18 07:22] LABS: HGB 10.6 gm/dL (11.4-16.0)
[2020-06-18] MEDS ORDERED: SODIUM CHLORIDE 0.9% 2,000 ML IV ONE (07:44)
[2020-06-18] MEDS ORDERED: lisinopriL 5 MG TAB PO SCH (09:00)
[2020-06-18] MEDS: ALVIMOPAN 12 MG CAPSULE PO SCH ×2 (09:51→19:43)
[2020-06-18] MEDS: MAGNESIUM OXIDE 400 MG TAB PO SCH (09:51)
[2020-06-18] MEDS: HEPARIN SODIUM,PORCINE 5,000 UNIT/ML 1 ML VIAL SQ SCH ×2 (09:51→19:42)
[2020-06-18] MEDS: buPROPion XL 150 MG TAB.ER.24H PO SCH (09:51)
[2020-06-18] MEDS: D5-0.45% NACL WITH KCL 20MEQ/L 1,000 ML IV SCH (11:22)
--- NOTE | 2020-06-18 13:18 | P.PN ---
Subjective Progress Note Date: 06/18/20 CHIEF COMPLAINT: Diverticulitis with recurrent GI bleeds HISTORY OF PRESENT ILLNESS: The patient is a 65-year-old female with morbid obesity including history of gastric bypass, intentional weight loss over 130 pounds, severe pandiverticulosis and sigmoid diverticulosis who presents with recurrent GI bleeds due to diverticulitis. She is status post robotic sigmoid colectomy with low anterior resection, 06/17/20. She is postop day 1. She had a regional block. She complains of pain. Overnight, she had dehydration with hypotensive events. Fluid boluses were given. She reports epigastric pain. Sh e denies left upper abdominal pain. She has not ambulated. No passage of flatus. She also has history of one left kidney. ROS: No reports of nausea and vomiting. No fevers or chills. No new chest pain. PHYSICAL EXAM: VITAL SIGNS: Reviewed CONSTITUTIONAL: Well developed and in no acute distress. EYES: Conjuctivae without sclera icterus. Extraocular movements grossly intact. HEAD, EARS, NOSE, THROAT: Head is atraumatic, normocephalic. Hears conversational speech. No nasal drainage. RESPIRATORY: Non-labored respirations and equal bilateral excursions. CARDIOVASCULAR: Regular rate. Regular rhythm. ABDOMEN: Incisions clean dry and intact. MUSCULOSKELETAL: No gross deformity of the lower extremities noted. SKIN: Good skin turgor. Well perfused. NEUROLOGIC: Cranial nerves II through XII grossly intact. No focal or lateralizing signs. PSYCH: Appropriate affect. Alert and oriented to person, place and time. CLINICAL LABS: White blood cell count normal, 9.7. Hemoglobin 14.2 to 10.6, following over 3 L normal saline bolus. Creatinine elevated 1.0 to 1.29 ASSESSMENT: 1. Recurrent gastrointestinal bleeds due to severe sigmoid diverticulosis/diverticulitis 2. History of gastric bypass 3. Single left kidney following right nephrectomy 4. Hypertensive heart disease 5. Thrombocytopenia, present on admission PLAN: 1. Ambulation encouraged. 2. She has one kidney and will avoid nephrotoxic agents. Lisinopril discontinued 3. Repeat CBC to monitor 4. Start DDVAP for thrombocytopenia percent on admission. 5. Entereg continued and await flatus/bowel function. 6. Discontinue Lanier 7. Adjust diet to bariatric liquids Objective - Vital Signs Vital signs: Vital Signs Temp 98.3 F 03/19/21 11:51 Pulse 73 06/18/20 11:51 Resp 16 06/18/20 11:51 BP 95/60 06/18/20 11:51 Pulse Ox 97 06/18/20 11:51 Intake & Output 06/17/20 06/18/20 06/18/20 18:59 06:59 18:59 Intake Total 1750 Output Total 1190 800 Balance 560 -800 Intake: IV 1750 Output: Urine 1160 800 Estimated Blood Loss 30 Other: Voiding Method Indwelling Catheter Indwelling Catheter - Labs CBC & Chem 7: 06/18/20 13:29 06/18/20 06:09 Labs: Abnormal Lab Results - Last 24 Hours (Table) 06/18/20 06/18/20 Range/Units 06:09 06:09 RBC 3.47 L (3.80-5.40) m/uL Hgb 10.6 L D (11.4-16.0) gm/dL Hct 32.3 L (34.0-46.0) % Neutrophils # 8.0 H (1.3-7.7) k/uL Lymphocytes # 0.8 L (1.0-4.8) k/uL Sodium 134 L (137-145) mmol/L Creatinine 1.29 H (0.52-1.04) mg/dL Glucose 151 H (74-99) mg/dL Calcium 7.1 L (8.4-10.2) mg/dL Assessment and Plan (1) Diverticulosis large intestine w/o perforation or abscess w/bleeding Current Visit: Yes Status: Acute Code(s): K57.31 - DVRTCLOS OF LG INT W/O PERFORATION OR ABSCESS W BLEEDING SNOMED Code(s): 3923149638021664 (2) Morbid obesity Current Visit: No Status: Acute Code(s): E66.01 - MORBID (SEVERE) OBESITY DUE TO EXCESS CALORIES SNOMED Code(s): 255405421 (3) Sigmoid diverticulosis Current Visit: No Status: Acute Code(s): K57.30 - DVRTCLOS OF LG INT W/O PERFORATION OR ABSCESS W/O BLEEDING SNOMED Code(s): 743289091
[2020-06-18] MEDS: DESMOPRESSIN ACETATE 4 MCG/ML VIAL (MDV) SQ SCH (13:29)
[2020-06-18 14:00] LABS: HCT 33.4 % (34.0-46.0); HGB 10.7 gm/dL (11.4-16.0); MCH 29.6 pg (25.0-35.0); MCHC 32.2 g/dL (31.0-37.0); MCV 92.1 fL (80.0-100.0); Mean Platelet Volume 9.1; Platelet Count 156 k/uL (150-450); RBC 3.62 m/uL (3.80-5.40); WBC 11.9 k/uL (3.8-10.6)
[2020-06-18] MEDS: SODIUM CHLORIDE 0.9% 1,000 ML IV SCH ×2 (14:53→23:34)
[2020-06-18] MEDS ORDERED: TAMSULOSIN 0.4 MG CAP.ER.24H PO STA (18:41)
--- NOTE | 2020-06-18 19:31 | P.PN ---
Progress Note - Text Progress Note Date: 06/18/20 Repeat hemoglobin stable. Lanier catheter discontinued. She has ambulated. Recommend abdominal binder for comfort. Discharge pending flatus or bowel movement. Diet advanced to bariatric full liquid due to history of gastric bypass.
[2020-06-18] MEDS: ACETAMINOPHEN TAB 500 MG TAB PO SCH ×2 (19:45→23:34)
[2020-06-19] MEDS: ONDANSETRON 4 MG/2 ML VIAL IVP SCH ×4 (05:52→23:37)
[2020-06-19] MEDS: ACETAMINOPHEN TAB 500 MG TAB PO SCH ×4 (05:52→23:30)
[2020-06-19] MEDS: LEVOTHYROXINE 25 MCG TAB PO SCH (05:52)
[2020-06-19] MEDS: LEVOTHYROXINE 100 MCG TAB PO SCH (05:52)
[2020-06-19] MEDS: LACTATED RINGERS 1,000 ML IV SCH (05:56)
[2020-06-19] MEDS: HYDROmorphone 1 MG/ML 1 ML SYRINGE IVP PRN ×2 (06:02→17:55)
[2020-06-19] MEDS: buPROPion XL 150 MG TAB.ER.24H PO SCH (08:35)
[2020-06-19] MEDS: MAGNESIUM OXIDE 400 MG TAB PO SCH (08:35)
[2020-06-19] MEDS: HEPARIN SODIUM,PORCINE 5,000 UNIT/ML 1 ML VIAL SQ SCH (08:35)
[2020-06-19] MEDS: TAMSULOSIN 0.4 MG CAP.ER.24H PO SCH (08:35)
[2020-06-19] MEDS: ALVIMOPAN 12 MG CAPSULE PO SCH ×2 (08:35→21:06)
[2020-06-19] MEDS: SODIUM CHLORIDE 0.9% 1,000 ML IV SCH ×2 (08:39→21:06)
[2020-06-19 09:35] LABS: African American GFR (CKD) 67 (>60 ml/min/1.73 sqM); Anion Gap 4 mmol/L; Blood Urea Nitrogen 11 mg/dL (7-17); Calcium 7.4 mg/dL (8.4-10.2); Carbon Dioxide 22 mmol/L (22-30); Chloride 110 mmol/L (98-107); Glucose 110 mg/dL (74-99); Non-African American GFR(CKD) 58 (>60 ml/min/1.73 sqM); Potassium 3.9 mmol/L (3.5-5.1); Sodium 136 mmol/L (137-145)
[2020-06-19] MEDS: AMPICILLIN-SULBACTAM 3 GM in SODIUM CHLORIDE 0.9% 100 ML IVPB SCH ×3 (11:22→23:31)
[2020-06-19 11:32] LABS: Basophils # (A) 0.03 X 10*3/uL (0.00-0.10); Basophils % (A) 0.4 %; Eosinophils # (A) 0.08 X 10*3/uL (0.04-0.35); Eosinophils % (A) 0.9 %; HCT 27.4 % (37.2-46.3); HGB 8.8 g/dL (12.0-15.0); Lymphocytes # (A) 1.03 X 10*3/uL (0.90-5.00); Lymphocytes % (A) 12.1 %; MCH 29.9 pg (27.0-32.0); MCHC 32.1 g/dL (32.0-37.0); MCV 93.2 fL (80.0-97.0); Mean Platelet Volume 11.9 fL (9.5-12.2); Monocytes # (A) 0.88 X 10*3/uL (0.20-1.00); Monocytes % (A) 10.3 %; Neutrophils # (A) 6.49 X 10*3/uL (1.80-7.70); Neutrophils % (A) 75.9 %; Platelet Count 110 X 10*3/uL (140-440); RBC 2.94 X 10*6/uL (4.10-5.20); RDW 13.9 % (11.5-14.5); WBC 8.54 X 10*3/uL (4.50-10.00)
--- NOTE | 2020-06-19 11:40 | P.PN ---
Subjective Progress Note Date: 06/19/20 Principal diagnosis: Diverticulosis Patient doing well today. Complaining of some abdominal cramps. Hemoglobin did drop somewhat to 8.8. No active bleeding. No flatus or bowel movement yet. Objective - Vital Signs Vital signs: Vital Signs Temp 98.4 F 06/19/20 04:59 Pulse 87 06/19/20 04:59 Resp 16 06/19/20 04:59 BP 117/64 06/19/20 04:59 Pulse Ox 94 L 06/19/20 04:59 Intake & Output 06/18/20 06/19/20 06/19/20 18:59 06:59 18:59 Intake Total 1680 Output Total 1150 Balance -1150 1680 Intake: Intake, IV Titration 1200 Amount Sodium Chloride 0.9% 1, 1200 000 ml @ 100 mls/hr IV . Q10H [facility]KA Rx#:[id number] Oral 480 Output: Urine 1150 Other: Voiding Method Indwelling Catheter Toilet # Voids 1 - Exam Abdomen: Soft, obese, incisions clean and dry, mild ecchymosis around the right sided incision site - Labs CBC & Chem 7: 06/19/20 06:21 06/19/20 06:21 Labs: Abnormal Lab Results - Last 24 Hours (Table) 06/18/20 06/19/20 06/19/20 Range/Units 13:29 06:21 06:21 WBC 11.9 H (3.8-10.6) k/uL RBC 3.62 L 2.94 L (3.80-5.40) m/uL Hgb 10.7 L 8.8 L (11.4-16.0) gm/dL Hct 33.4 L 27.4 L (34.0-46.0) % Plt Count 110 L (140-440) X 10*3/uL Sodium 136 L (137-145) mmol/L Chloride 110 H (98-107) mmol/L Glucose 110 H (74-99) mg/dL Calcium 7.4 L (8.4-10.2) mg/dL Assessment and Plan (1) Diverticulosis large intestine w/o perforation or abscess w/bleeding Narrative/Plan: Continue liquid diet. Recheck CBC tomorrow. Continue ambulation. Current Visit: Yes Status: Acute Code(s): K57.31 - DVRTCLOS OF LG INT W/O PERFORATION OR ABSCESS W BLEEDING SNOMED Code(s): 4290722596151444
[2020-06-19 12:25] LABS: Glucose,Whole Blood 123 mg/dL (75-99)
[2020-06-19] MEDS: SODIUM FERRIC GLUCONAT-SUCROSE 125 MG in SODIUM CHLORIDE 0.9% 100 ML IVPB SCH (12:47)
[2020-06-19] MEDS: metroNIDAZOLE-NS PMX 500 MG in SALINE 1 100ML.BAG IVPB SCH ×3 (14:51→23:35)
[2020-06-19] MEDS: DESMOPRESSIN ACETATE 4 MCG/ML VIAL (MDV) SQ SCH (16:43)
[2020-06-19 18:12] LABS: Glucose,Whole Blood 133 mg/dL (75-99)
[2020-06-20] MEDS: HYDROmorphone 1 MG/ML 1 ML SYRINGE IVP PRN (04:38)
[2020-06-20] MEDS: LEVOTHYROXINE 100 MCG TAB PO SCH (05:41)
[2020-06-20] MEDS: ACETAMINOPHEN TAB 500 MG TAB PO SCH ×4 (05:41→23:09)
[2020-06-20] MEDS: LEVOTHYROXINE 25 MCG TAB PO SCH (05:41)
[2020-06-20] MEDS: metroNIDAZOLE-NS PMX 500 MG in SALINE 1 100ML.BAG IVPB SCH ×3 (05:41→17:59)
[2020-06-20] MEDS: ONDANSETRON 4 MG/2 ML VIAL IVP SCH ×4 (05:41→23:30)
[2020-06-20] MEDS: ALVIMOPAN 12 MG CAPSULE PO SCH ×2 (08:36→22:13)
[2020-06-20] MEDS: TAMSULOSIN 0.4 MG CAP.ER.24H PO SCH (08:36)
[2020-06-20] MEDS: SODIUM FERRIC GLUCONAT-SUCROSE 125 MG in SODIUM CHLORIDE 0.9% 100 ML IVPB SCH (08:36)
[2020-06-20] MEDS: MAGNESIUM OXIDE 400 MG TAB PO SCH (08:36)
[2020-06-20] MEDS: buPROPion XL 150 MG TAB.ER.24H PO SCH (08:36)
[2020-06-20 09:10] LABS: Basophils # (A) 0.05 X 10*3/uL (0.00-0.10); Basophils % (A) 0.7 %; Eosinophils % (A) 4.3 %; HCT 27.2 % (37.2-46.3); HGB 8.7 g/dL (12.0-15.0); Lymphocytes # (A) 1.03 X 10*3/uL (0.90-5.00); Lymphocytes % (A) 14.6 %; MCV 93.8 fL (80.0-97.0); Mean Platelet Volume 12.4 fL (9.5-12.2); Monocytes # (A) 0.61 X 10*3/uL (0.20-1.00); Monocytes % (A) 8.7 %; Neutrophils # (A) 5.04 X 10*3/uL (1.80-7.70); Neutrophils % (A) 71.4 %; Platelet Count 118 X 10*3/uL (140-440); WBC 7.05 X 10*3/uL (4.50-10.00)
[2020-06-20] MEDS: SODIUM CHLORIDE 0.9% 1,000 ML IV SCH ×2 (09:14→15:58)
[2020-06-20 09:54] LABS: African American GFR (CKD) 90.9 (60.0-200.0); Anion Gap 3.2 mmol/L (4.00-12.00); BUN/Creat Ratio 8.75 Ratio (12.00-20.00); Calcium 7.9 mg/dL (8.7-10.3); Carbon Dioxide 26.8 mmol/L (21.6-31.8); Non-African American GFR(CKD) 78.5 (60.0-200.0); Potassium 3.9 mmol/L (3.5-5.5)
[2020-06-20] MEDS: AMPICILLIN-SULBACTAM 3 GM in SODIUM CHLORIDE 0.9% 100 ML IVPB SCH ×3 (10:44→23:10)
--- NOTE | 2020-06-20 11:39 | P.PN ---
Subjective Progress Note Date: 06/20/20 Principal diagnosis: Diverticulosis Patient still having some mild crampy pain. It is improved. She is passing flatus. No bowel movement. Hemoglobin today 8.7 it was 8.8 yesterday. Objective - Vital Signs Vital signs: Vital Signs Temp 98.3 F 06/20/20 04:49 Pulse 81 06/20/20 08:10 Resp 16 06/20/20 08:10 BP 169/82 06/20/20 04:49 Pulse Ox 96 06/20/20 04:49 Intake & Output 06/19/20 06/20/20 06/20/20 18:59 06:59 18:59 Intake Total 2039 Balance 2039 Intake: Intake, IV Titration 1200 Amount Ampicillin-Sulbactam 3 gm 100 In Sodium Chloride 0.9% 100 ml @ 200 mls/hr IVPB Q8HR [facility]KA Rx#:[id number] Sodium Chloride 0.9% 1, 1000 000 ml @ 100 mls/hr IV . Q10H [facility]KA Rx#:[id number] metroNIDAZOLE-NS PMX 500 100 mg In Saline 1 100ml.bag @ 100 mls/hr IVPB Q6HR MIKA Rx#:[id number] Oral 840 Other: Voiding Method Toilet Toilet Toilet # Voids 2 - Exam Abdomen: Soft, nondistended, mild ecchymosis right abdomen, incisions clean and dry, mild tenderness - Labs CBC & Chem 7: 06/20/20 05:36 06/20/20 05:36 Labs: Abnormal Lab Results - Last 24 Hours (Table) 06/19/20 06/19/20 06/20/20 Range/Units 12:23 18:10 05:36 RBC (4.10-5.20) X 10*6/uL Hgb (12.0-15.0) g/dL Hct (37.2-46.3) % Plt Count (140-440) X 10*3/uL MPV (9.5-12.2) fL Chloride 112 H (96-109) mmol/L Anion Gap 3.20 L (4.00-12.00) mmol/L BUN 7.0 L (9.0-27.0) mg/dL BUN/Creatinine Ratio 8.75 L (12.00-20.00) Ratio POC Glucose (mg/dL) 123 H 133 H (75-99) mg/dL Calcium 7.9 L (8.7-10.3) mg/dL 06/20/20 Range/Units 05:36 RBC 2.90 L (4.10-5.20) X 10*6/uL Hgb 8.7 L (12.0-15.0) g/dL Hct 27.2 L (37.2-46.3) % Plt Count 118 L (140-440) X 10*3/uL MPV 12.4 H (9.5-12.2) fL Chloride (96-109) mmol/L Anion Gap (4.00-12.00) mmol/L BUN (9.0-27.0) mg/dL BUN/Creatinine Ratio (12.00-20.00) Ratio POC Glucose (mg/dL) (75-99) mg/dL Calcium (8.7-10.3) mg/dL Assessment and Plan (1) Diverticulosis large intestine w/o perforation or abscess w/bleeding Narrative/Plan: Patient doing fairly well. Patient with drop in hemoglobin postoperatively. This appears to have stabilized. Having some crampy discomfort. Continue full liquids. Recheck CBC tomorrow. Anticipate discharge if hemoglobin stable. Current Visit: Yes Status: Acute Code(s): K57.31 - DVRTCLOS OF LG INT W/O PERFORATION OR ABSCESS W BLEEDING SNOMED Code(s): 9362452052548337
[2020-06-20] MEDS: lisinopriL 5 MG TAB PO SCH (14:39)
[2020-06-20] MEDS: DESMOPRESSIN ACETATE 4 MCG/ML VIAL (MDV) SQ SCH (15:54)
[2020-06-20 20:55] VITALS: RESP 16
[2020-06-21] MEDS: metroNIDAZOLE-NS PMX 500 MG in SALINE 1 100ML.BAG IVPB SCH ×2 (00:02→06:19)
[2020-06-21 05:34] VITALS: BP 148/82; PULSE 71; TEMP 98
[2020-06-21] MEDS: SODIUM CHLORIDE 0.9% 1,000 ML IV SCH (06:16)
[2020-06-21] MEDS: LEVOTHYROXINE 25 MCG TAB PO SCH (06:21)
[2020-06-21] MEDS: ONDANSETRON 4 MG/2 ML VIAL IVP SCH (06:21)
[2020-06-21] MEDS: LEVOTHYROXINE 100 MCG TAB PO SCH (06:21)
[2020-06-21] MEDS: ACETAMINOPHEN TAB 500 MG TAB PO SCH (06:26)
[2020-06-21] MEDS: AMPICILLIN-SULBACTAM 3 GM in SODIUM CHLORIDE 0.9% 100 ML IVPB SCH (08:53)
[2020-06-21] MEDS: lisinopriL 5 MG TAB PO SCH (08:54)
[2020-06-21] MEDS: TAMSULOSIN 0.4 MG CAP.ER.24H PO SCH (08:54)
[2020-06-21] MEDS: MAGNESIUM OXIDE 400 MG TAB PO SCH (08:54)
[2020-06-21 09:31] LABS: Basophils # (A) 0.06 X 10*3/uL (0.00-0.10); Basophils % (A) 0.9 %; Eosinophils # (A) 0.48 X 10*3/uL (0.04-0.35); Eosinophils % (A) 7.1 %; HCT 28.1 % (37.2-46.3); HGB 9.1 g/dL (12.0-15.0); Lymphocytes # (A) 1.24 X 10*3/uL (0.90-5.00); Lymphocytes % (A) 18.4 %; MCH 29.9 pg (27.0-32.0); MCHC 32.4 g/dL (32.0-37.0); MCV 92.4 fL (80.0-97.0); Mean Platelet Volume 11.8 fL (9.5-12.2); Monocytes # (A) 0.49 X 10*3/uL (0.20-1.00); Monocytes % (A) 7.3 %; Neutrophils # (A) 4.44 X 10*3/uL (1.80-7.70); Neutrophils % (A) 65.9 %; Platelet Count 155 X 10*3/uL (140-440); RBC 3.04 X 10*6/uL (4.10-5.20); RDW 14.4 % (11.5-14.5); WBC 6.74 X 10*3/uL (4.50-10.00)
[2020-06-21] MEDS: SODIUM FERRIC GLUCONAT-SUCROSE 125 MG in SODIUM CHLORIDE 0.9% 100 ML IVPB SCH (10:48)
--- NOTE | 2020-06-21 11:31 | P.PN ---
Subjective Progress Note Date: 06/21/20 CHIEF COMPLAINT: Diverticulitis HISTORY OF PRESENT ILLNESS: The patient is a 65-year-old female status post robotic sigmoid colectomy with low anterior resection, 06/17/20. She is passing flatus and having bowel movements. No report of blood in stools. She is ambulating. She is tolerating diet. ROS: No reports of nausea and vomiting. No fevers or chills. No new chest pain. PHYSICAL EXAM: VITAL SIGNS: Reviewed CONSTITUTIONAL: Well developed and in no acute distress. EYES: Conjuctivae without sclera icterus. Extraocular movements grossly intact. HEAD, EARS, NOSE, THROAT: Head is atraumatic, normocephalic. Hears conversational speech. No nasal drainage. RESPIRATORY: Non-labored respirations and equal bilateral excursions. CARDIOVASCULAR: Regular rate. Regular rhythm. ABDOMEN: Incisions clean dry and intact. MUSCULOSKELETAL: No gross deformity of the lower extremities noted. SKIN: Good skin turgor. Well perfused. NEUROLOGIC: Cranial nerves II through XII grossly intact. No focal or lateralizing signs. PSYCH: Appropriate affect. Alert and oriented to person, place and time. CLINICAL LABS: White blood cell count normal, 6.74. Hemoglobin 9.1 increased from 8.7. Creatinine improved from 1.29 to 0.8. ASSESSMENT: 1. Recurrent gastrointestinal bleeds due to severe sigmoid diverticulosis/diverticulitis 2. History of gastric bypass 3. Single left kidney following right nephrectomy 4. Hypertensive heart disease 5. Thrombocytopenia, present on admission PLAN: 1. She is stable for discharge 2. Follow up in the bariatric center in 5 days described. 3. Colectomy diet described. Objective - Vital Signs Vital signs: Vital Signs Temp 98 F 06/21/20 05:00 Pulse 71 06/21/20 05:00 Resp 16 06/21/20 05:00 BP 148/82 06/21/20 05:00 Pulse Ox 97 06/21/20 05:00 Intake & Output 06/20/20 06/21/20 06/21/20 18:59 06:59 18:59 Output Total 600 Balance -600 Output: Urine 600 Other: Voiding Method Toilet Toilet # Voids 2 # Bowel Movements 1 - Labs CBC & Chem 7: 06/21/20 05:05 06/20/20 05:36 Labs: Abnormal Lab Results - Last 24 Hours (Table) 06/21/20 Range/Units 05:05 RBC 3.04 L (4.10-5.20) X 10*6/uL Hgb 9.1 L (12.0-15.0) g/dL Hct 28.1 L (37.2-46.3) % Eosinophils # 0.48 H (0.04-0.35) X 10*3/uL Assessment and Plan (1) Diverticulosis large intestine w/o perforation or abscess w/bleeding Status: Acute Code(s): K57.31 - DVRTCLOS OF LG INT W/O PERFORATION OR ABSCESS W BLEEDING SNOMED Code(s): 9476228405472775 (2) Morbid obesity Status: Acute Code(s): E66.01 - MORBID (SEVERE) OBESITY DUE TO EXCESS CALORIES SNOMED Code(s): 389019394 (3) Sigmoid diverticulosis Status: Acute Code(s): K57.30 - DVRTCLOS OF LG INT W/O PERFORATION OR ABSCESS W/O BLEEDING SNOMED Code(s): 571898970
--- NOTE | 2020-06-21 11:33 | P.DS ---
Providers Date of admission: 06/17/20 12:09 Expected date of discharge: 06/21/20 Attending physician: Qian Murray Primary care physician: Stephy Harris - Discharge Diagnosis(es) (1) Diverticulosis large intestine w/o perforation or abscess w/bleeding Status: Acute (2) Morbid obesity Status: Acute (3) Sigmoid diverticulosis Status: Acute Hospital Course: POSTOPERATIVE DIAGNOSES: 1. Recurrent gastrointestinal bleeding due to sigmoid diverticulitis 2. Morbid obesity due to excess calories, BMI 40.1 3. History of gastric bypass 4. Hypertensive heart disease 5. History of thyroid cancer 6. Hypothyroidism 7. Depressive disorder 8. Congenital signal kidney 9. Hyperlipidemia 10. Postoperative nausea or vomiting 11. Severe epigastric and midline adhesions 12. Incarcerated incisional ventral hernia, right upper quadrant COURSE: The patient is a 65-year-old female with recurrent gastrointestinal bleeding due to sigmoid diverticulitis. She underwent robotic sigmoid colectomy. Postoperatively, she was tolerating diet. She was passing flatus and had non-bloody bowel movements. Colectomy diet was reviewed. Discharge instructions were verbalized. Procedures: OPERATION: 1. Robotic-assisted daVinci Xi laparoscopic lysis of adhesions over 1 hour 2. Robotic-assisted daVinci Xi laparoscopic with sigmoid colectomy and low anterior resection using 29mm EEA Ethicon powered stapler 3. Intraoperative colonoscopy for flexible sigmoidoscopy Anesthesia: GETA, local, epidural Estimated Blood Loss (ml): 30 Pathology: other (Sigmoid colon, anastomosis, partial colectomy) Condition: stable Disposition: floor COMPLICATIONS: None. Operative Findings: 1. Severe epigastric upper midline adhesions from previous cholecystectomy 2. Incarcerated incisional hernia, right upper quadrant identified 3. Resolved phlegmon left lower quadrant from previous diverticulitis 4. Highly redundant sigmoid colon including splenic flexure Patient Condition at Discharge: Stable Plan - Discharge Summary Discharge Rx Participant: Yes New Discharge Prescriptions: New Acetaminophen Tab [Tylenol Tab] 1,000 mg PO Q6HR PRN #30 tablet PRN Reason: Pain Simethicone 40 mg/0.6 ml Drops [Mylicon Drops] 40 mg PO PCHS PRN #30 ml PRN Reason: Gas Ondansetron Odt [Zofran Odt] 4 mg PO Q8HR PRN #9 tab PRN Reason: Nausea bisacodyL [Dulcolax] 5 mg PO DAILY PRN #10 tablet.dr NAVARRETE Reason: Constipation Omeprazole [PriLOSEC] 40 mg PO DAILY #30 capsule. Continue buPROPion XL [Wellbutrin XL] 300 mg PO DAILY Omeprazole [PriLOSEC] 40 mg PO DAILY Sucralfate [Carafate] 1 gm PO BID Levothyroxine Sodium [Synthroid] 25 mcg PO DAILY Levothyroxine Sodium [Synthroid] 200 mcg PO DAILY Atorvastatin [Lipitor] 5 mg PO DAILY Cyanocobalamin [Vitamin B-12] 500 mcg PO DAILY Multivitamins, Thera [Multivitamin (formulary)] 1 tab PO DAILY Magnesium 250 mg PO DAILY polyethylene glycoL 3350 [Miralax] 17 gm PO DAILY Lisinopril [Prinivil] 5 mg PO DAILY Discontinued lisinopriL [Zestril] 5 mg PO DAILY Zinc 50 mg PO DAILY Cholecalciferol [Vitamin D3 (25 Mcg = 1000 Iu)] 25 mcg PO DAILY Vitamin A 8,000 unit PO DAILY Discharge Medication List buPROPion XL [Wellbutrin XL] 300 mg PO DAILY 07/29/18 [History] Omeprazole [PriLOSEC] 40 mg PO DAILY 11/12/19 [History] Atorvastatin [Lipitor] 5 mg PO DAILY 04/28/20 [History] Levothyroxine Sodium [Synthroid] 25 mcg PO DAILY 04/28/20 [History] Levothyroxine Sodium [Synthroid] 200 mcg PO DAILY 04/28/20 [History] Sucralfate [Carafate] 1 gm PO BID 04/28/20 [History] Cyanocobalamin [Vitamin B-12] 500 mcg PO DAILY 06/14/20 [History] Magnesium 250 mg PO DAILY 06/14/20 [History] Multivitamins, Thera [Multivitamin (formulary)] 1 tab PO DAILY 06/14/20 [History] polyethylene glycoL 3350 [Miralax] 17 gm PO DAILY 06/14/20 [History] Acetaminophen Tab [Tylenol Tab] 1,000 mg PO Q6HR PRN #30 tablet 06/19/20 [Rx] Lisinopril [Prinivil] 5 mg PO DAILY 06/20/20 [History] Omeprazole [PriLOSEC] 40 mg PO DAILY #30 capsule. 06/21/20 [Rx] Ondansetron Odt [Zofran Odt] 4 mg PO Q8HR PRN #9 tab 06/21/20 [Rx] Simethicone 40 mg/0.6 ml Drops [Mylicon Drops] 40 mg PO PCHS PRN #30 ml 06/21/20 [Rx] bisacodyL [Dulcolax] 5 mg PO DAILY PRN #10 tablet. 06/21/20 [Rx] Follow up [facility]ment(s[facility] [place] [facility] - 06/23/20 2:00 pm Patient Instructions/Handouts: Acetaminophen (By mouth), Simethicone (By mouth), Omeprazole (By mouth), Laxative, Stool Softeners (By mouth), Ondansetron (By mouth), Chronic Kidney Disease Diet (DC), Colectomy (GEN), Laparoscopic Bowel Resection (IP), Abdominal Binder (DC), Colectomy Diet (DC) Activity/Diet/Wound Care/Special Instructions: Wear abdominal binder at all times for comfort. Please notify your pain specialist for narcotic pain meds. No lifting over 10 pounds in 4 weeks until July 18. May shower. No bath tub soaks for two weeks until June 30. Avoid steak, tough meats and seeds such as raspberry seeds. No driving while on narcotics. Use Tylenol scheduled for the next 24-48 hours for best pain relief. Use ice along incisions for today to prevent swelling. Discharge Disposition: HOME SELF-CARE
== END 2020-06-21 13:30 | disposition home or self-care (01) | DRG 330 ==
LOC: ORWHC2ENDO 07:54 → 5NMEDONC 09:14 → ORWHC2ENDO 06-17 12:09
PROVIDERS: ADMIT Surgery Plastic and Reconstructive Surgery; ATTEND Surgery Plastic and Reconstructive Surgery
PROC: 0DJD8ZZ Inspection of Lower Intestinal Tract, Via Natural or Artificial Opening Endoscopic (ICD-10-PCS; 2020-06-16)
PROC: 0DJD8ZZ Inspection of Lower Intestinal Tract, Via Natural or Artificial Opening Endoscopic (ICD-10-PCS; principal; 2020-06-17 07:30)
PROC: 8E0W4CZ Robotic Assisted Procedure of Trunk Region, Percutaneous Endoscopic Approach (ICD-10-PCS; principal; 2020-06-17 07:30)
PROC: 0DNW4ZZ Release Peritoneum, Percutaneous Endoscopic Approach (ICD-10-PCS; principal; 2020-06-17 07:30)
PROC: 0DBN4ZZ Excision of Sigmoid Colon, Percutaneous Endoscopic Approach (ICD-10-PCS; principal; 2020-06-17 07:30)
DX: K57.33 Diverticulitis of large intestine without perforation or abscess with bleeding (principal); K43.0 Incisional hernia with obstruction, without gangrene; Z68.41 Body mass index [BMI] 40.0-44.9, adult; Q60.0 Renal agenesis, unilateral; K66.0 Peritoneal adhesions (postprocedural) (postinfection); K64.1 Second degree hemorrhoids; K64.4 Residual hemorrhoidal skin tags; D69.6 Thrombocytopenia, unspecified; E11.9 Type 2 diabetes mellitus without complications; E66.01 Morbid (severe) obesity due to excess calories; E78.5 Hyperlipidemia, unspecified; E86.0 Dehydration; E89.0 Postprocedural hypothyroidism; F32.9 Major depressive disorder, single episode, unspecified; I11.9 Hypertensive heart disease without heart failure; Z79.890 Hormone replacement therapy; Z79.899 Other long term (current) drug therapy; Z80.3 Family history of malignant neoplasm of breast; Z82.49 Family history of ischemic heart disease and other diseases of the circulatory system; Z20.822 Contact with and (suspected) exposure to COVID-19; Z80.1 Family history of malignant neoplasm of trachea, bronchus and lung; Z85.850 Personal history of malignant neoplasm of thyroid; Z87.891 Personal history of nicotine dependence; Z90.710 Acquired absence of both cervix and uterus; Z98.84 Bariatric surgery status; R11.2 Nausea with vomiting, unspecified; Z90.49 Acquired absence of other specified parts of digestive tract
CPT/HCPCS: 45378; 64999; 71046; 76942; 80048; 80053; 85025; 85027; 86850; 86900; 86901; 87635; 88307

== ENCOUNTER → 2020-06-23 | Outpatient (CLI) | payer OTHER ==
[2020-06-23 14:29] VITALS: BP 151/90; PULSE 90; RESP 20; TEMP 98.7; BMI 42.0
--- NOTE | 2020-06-23 14:48 | P.PN ---
Subjective Progress Note Date: 06/23/20 She reports burning sensation. She is passing flatus. Recommend eating more foods and low fiber. Stop Miralax and all laxatives. Can start MVI only. Her bowel movement is loose like water. [place] sandwich advised. Eat some chicken. Stop laxatives. Folow-up. No blood in stools. Objective - Vital Signs Vital signs: Vital Signs Temp 98.7 F 06/23/20 14:20 Pulse 90 06/23/20 14:20 Resp 20 06/23/20 14:20 BP 151/90 06/23/20 14:20 Pulse Ox Intake & Output 06/22/20 06/23/20 06/23/20 18:59 06:59 18:59 Weight 108.409 kg
== END ==
LOC: BARWHC3 13:58
PROVIDERS: ATTEND Surgery Plastic and Reconstructive Surgery
DX: E66.01 Morbid (severe) obesity due to excess calories (principal); Z68.41 Body mass index [BMI] 40.0-44.9, adult
CPT/HCPCS: 99211

== ENCOUNTER → 2020-06-30 | Outpatient (CLI) | payer OTHER ==
[2020-06-30 15:20] VITALS: BP 166/84; PULSE 88; RESP 18; TEMP 99; BMI 41.6
--- NOTE | 2020-06-30 15:31 | P.PN ---
Subjective Progress Note Date: 06/30/20 DATE OR SERVICE: 06/30/2020 CHIEF COMPLAINT: Status post low anterior resection for diverticulitis HISTORY OF PRESENT ILLNESS: Laura Bishop is a 64-year-old female status post gastric bypass, 12/17/2017. She is 3 years out. She is status post lower anterior resection sigmoid colectomy 06/17/2020. She is 2 weeks out. She reports no blood in stools. She reports intermittent epigastric pain. Intraoperative findings were consistent with an epigastric ventral hernia. Her ideal body weight for her height is 140 pounds for 5 feet 3.25 inches. Her highest weight was 362 pounds. Her highest body mass index was 63.8. She comes in 237 pounds from 239 pounds, 1 week ago. She has lost 125 pounds lifetime. Percent excess weight loss is 57 %. PHYSICAL EXAM: VITAL SIGNS: Height 5 foot 3.25 inches, weight 237 pounds. BMI 41.6 Vital Signs Temp 99 F 06/30/20 15:14 Pulse 88 06/30/20 15:14 Resp 18 06/30/20 15:14 BP 166/84 06/30/20 15:14 Pulse Ox GENERAL: Well-developed female in no acute distress. HEENT: No scleral icterus. Extraocular movements grossly intact. Hears conversational speech. No nasal drainage. NECK: Supple without lymphadenopathy. CHEST: Nonlabored respirations with equal bilateral excursions. CARDIOVASCULAR: Regular rate and rhythm. Distal 2+ pulses. ABDOMEN: Soft, no infection. Incisions clean dry and intact. MUSCULOSKELETAL: No clubbing, cyanosis. NEURO: No focal or lateralizing signs. Cranial nerves 2 through 12 grossly within normal limits. PSYCH: Appropriate affect. Alert and oriented to person, place and time. SKIN: Good skin turgor. Well perfused. ASSESSMENT: 1. Morbid obesity due to excess calories. 2. Body mass index 63.4 down to 41.6 3. Status post gastric bypass 4. Dysphagia 5. Atypical chest pain 6. History of gastrointestinal bleeding 7. Diverticulosis 8. Peritoneal adhesions 9. Gastrointestinal hemorrhage 10. Diverticulosis 11. Status post colectomy for diverticulitis PLAN: 1. Recommend stop Omeprazole and Carafate as she has no further gastric ulcers. 2. Recommend follow up in 1 week. Objective - Vital Signs Vital signs: Vital Signs Temp 99 F 06/30/20 15:14 Pulse 88 06/30/20 15:14 Resp 18 06/30/20 15:14 BP 166/84 06/30/20 15:14 Pulse Ox Intake & Output 06/29/20 06/30/20 06/30/20 18:59 06:59 18:59 Weight 107.501 kg
== END ==
LOC: BARWHC3 14:16
PROVIDERS: ATTEND Surgery Plastic and Reconstructive Surgery
DX: E66.01 Morbid (severe) obesity due to excess calories (principal); R13.10 Dysphagia, unspecified; R07.89 Other chest pain; K57.90 Diverticulosis of intestine, part unspecified, without perforation or abscess without bleeding; K66.0 Peritoneal adhesions (postprocedural) (postinfection); Z68.44 Body mass index [BMI] 60.0-69.9, adult; Z90.49 Acquired absence of other specified parts of digestive tract; Z98.84 Bariatric surgery status
CPT/HCPCS: 99211

== ENCOUNTER → 2020-07-07 | Outpatient (CLI) | payer OTHER ==
--- NOTE | 2020-07-07 17:53 | P.PN ---
Subjective Progress Note Date: 07/07/20 No further troubles with bowel. She feels really good. Off carafarate. No further epigastric pain. Get labs.
--- NOTE | 2020-07-07 18:01 | P.PN ---
Progress Note - Text Progress Note Date: 07/07/20 To whom it may concern: Laura Bishop is under my general surgical care. She may return to work July 19, 2020. Regards, Qian Murray MD FACS
[2020-07-08 14:13] VITALS: BP 148/94; PULSE 86; RESP 16; TEMP 98.9; BMI 40.6
== END ==
LOC: BARWHC3 16:06
PROVIDERS: ATTEND Surgery Plastic and Reconstructive Surgery
DX: E66.01 Morbid (severe) obesity due to excess calories (principal); Z68.38 Body mass index [BMI] 38.0-38.9, adult; E11.9 Type 2 diabetes mellitus without complications; Z98.84 Bariatric surgery status
CPT/HCPCS: 99211

== ENCOUNTER → 2020-07-14 | Outpatient (CLI) | payer OTHER ==
--- NOTE | 2020-07-14 15:33 | CT ---
EXAMINATION TYPE: CT abdomen pelvis w con DATE OF EXAM: 07/14/2020 HISTORY: Diverticulitis per order. Left-sided pain. CT DLP: 1764mGycm Automated Exposure Control for Dose Reduction was Utilized. CONTRAST: CT scan of the abdomen and pelvis is performed with IV Contrast, patient injected with 100 mL of Isov ue 300. COMPARISON: CT abdomen and pelvis March 03, 2019 FINDINGS: LUNG BASES: No significant abnormality is appreciated. LIVER/GB: Cholecystectomy clips are redemonstrated. PANCREAS: No significant abnormality is seen. SPLEEN: No significant abnormality is seen. ADRENALS: No significant abnormality is seen. KIDNEYS: Right kidney not seen surgically or congenitally absent similar to prior. Some small simple appearing thin-walled cysts parapelvic region mid to lower pole left kidney and laterally lower pole of the left kidney redemonstrated. BOWEL: Oral contrast reaches level of the rectum. Surgical changes from gastric bypass again seen. No suspicious small or large bowel dilatation. Scattered colonic diverticula. Surgical changes sigmoid colon axial image 68 on current study are present. Perhaps mild fat stranding adjacent sigmoid colon just proximal to surgical site. No free air. No well-formed fluid collection or abscess. UTERUS/ADNEXA: Somewhat small uterus or uterine remnant redemonstrated. LYMPH NODES: No greater than 1cm abdominal or pelvic lymph nodes are appreciated. OSSEOUS STRUCTURES: [id number] disc space narrowing with vacuum disc phenomenon at L2-L3 leve l with endplate sclerosis. OTHER: There is ventral wall hernia containing fat and tiny mesenteric vessels along surgical scar in the midline of the abdomen axial image 53 redemonstrated. IMPRESSION: Possible mild uncomplicated acute diverticulitis sigmoid colon. Background prominent colo vladislav diverticulosis and prior bowel surgery.
== END | disposition home or self-care (01) ==
LOC: RADCTMAIN 13:01
PROVIDERS: ATTEND Surgery Plastic and Reconstructive Surgery
DX: K57.30 Diverticulosis of large intestine without perforation or abscess without bleeding (principal); Z98.890 Other specified postprocedural states
CPT/HCPCS: 82565; 84520; 74177; 36415; Q9967

== ENCOUNTER → 2020-07-14 | Outpatient (CLI) | payer OTHER ==
[2020-07-14 15:27] VITALS: BP 177/90; PULSE 73; RESP 18; TEMP 98.3; BMI 40.7
--- NOTE | 2020-07-14 15:46 | P.PN ---
Subjective Progress Note Date: 07/14/20 She comes in with diverticulitis. Cipro and Flagyl prescribed. CT reviewed. Objective - Vital Signs Vital signs: Vital Signs Temp 98.3 F 07/14/20 15: Pulse 73 07/14/20 15:21 Resp 18 07/14/20 15:21 BP 177/90 07/14/20 15:21 Pulse Ox Intake & Output 07/13/20 07/14/20 07/14/20 18:59 06:59 18:59 Weight 105.233 kg
== END ==
LOC: BARWHC3 15:09
PROVIDERS: ATTEND Surgery Plastic and Reconstructive Surgery
DX: E66.01 Morbid (severe) obesity due to excess calories (principal); Z68.41 Body mass index [BMI] 40.0-44.9, adult; E11.9 Type 2 diabetes mellitus without complications; K21.9 Gastro-esophageal reflux disease without esophagitis; E78.5 Hyperlipidemia, unspecified; I10 Essential (primary) hypertension; E07.9 Disorder of thyroid, unspecified; Z98.84 Bariatric surgery status; Z46.51 Encounter for fitting and adjustment of gastric lap band; Z87.891 Personal history of nicotine dependence; Z80.3 Family history of malignant neoplasm of breast
CPT/HCPCS: 99211

== ENCOUNTER → 2020-08-05 | Outpatient (CLI) | payer OTHER ==
[2020-08-05 13:21] LABS: HCT 47.2 % (37.2-46.3); HGB 14.4 g/dL (12.0-15.0); MCH 28.8 pg (27.0-32.0); MCHC 30.5 g/dL (32.0-37.0); MCV 94.4 fL (80.0-97.0); Mean Platelet Volume 12.3 fL (9.5-12.2); Platelet Count 164 X 10*3/uL (140-440); WBC 5.07 X 10*3/uL (4.50-10.00)
[2020-08-05 14:14] LABS: Ferritin 48.6 ng/mL (10.0-291.0)
[2020-08-05 14:17] LABS: Folate, Serum 7.2 ng/mL
[2020-08-05 15:10] LABS: % Iron Saturation 13.35 (12.00-45.00); African American GFR (CKD) 61.9 (60.0-200.0); Albumin 4.1 g/dL (3.80-4.90); Albumin/Globulin Ratio 1.58 (1.60-3.17); Anion Gap 9.4 mmol/L (4.00-12.00); BUN/Creat Ratio 21.82 Ratio (12.00-20.00); Calcium 8.7 mg/dL (8.7-10.3); Carbon Dioxide 26.6 mmol/L (21.6-31.8); Chol/HDL Ratio 3.48; Globulin 2.6 g/dL (1.6-3.3); LDL Cholesterol,Calculated 113.2 mg/dL (0.0-131.0); Magnesium 2.1 mg/dL (1.5-2.4); Non-African American GFR(CKD) 53.4 (60.0-200.0); Potassium 4.3 mmol/L (3.5-5.5); Total Bilirubin 0.4 mg/dL (0.2-1.2); Total Protein 6.7 g/dL (6.2-8.2); VLDL Calculation 15.8 mg/dL (5.00-40.00)
[2020-08-05 16:11] LABS: Hemoglobin A1C 5.5 % (4.0-6.0)
[2020-08-05 23:23] LABS: INR 0.93 (0.90-1.11); Partial Thromboplastin Time 25.9 sec (23.5-31.0); Prothrombin Time 10.2 sec (9.9-11.9)
[2020-08-06 12:39] LABS: Zinc, Serum 76 ug/dL (60-130)
== END | disposition home or self-care (01) ==
LOC: LABWHC1 07:11
PROVIDERS: ATTEND Surgery Plastic and Reconstructive Surgery
DX: N19 Unspecified kidney failure (principal); E55.9 Vitamin D deficiency, unspecified; E89.1 Postprocedural hypoinsulinemia; E66.01 Morbid (severe) obesity due to excess calories; D50.8 Other iron deficiency anemias; K90.89 Other intestinal malabsorption; K74.1 Hepatic sclerosis; K50.90 Crohn's disease, unspecified, without complications
CPT/HCPCS: 36415; 80053; 80061; 82306; 82525; 82607; 82728; 82746; 83036; 83540; 83550; 83735; 83970; 84100; 84134; 84255; 84425; 84443; 84590; 84630; 85027; 85610; 85730

== ENCOUNTER → 2020-08-11 | Outpatient (CLI) | payer OTHER ==
--- NOTE | 2020-08-11 13:53 | P.PN ---
Subjective Progress Note Date: 08/11/20 DATE OR SERVICE: 08/11/2020 CHIEF COMPLAINT: Status post low anterior resection for diverticulitis HISTORY OF PRESENT ILLNESS: Laura Bishop is a 65-year-old female status post gastric bypass, 12/17/2017. She is status post lower anterior resection sigmoid colectomy 06/17/2020. She is 2 months out. She had lower abdominal pain from diverticulitis 1 month ago. She reports no more bleeding. Her weight is stable. She denies any further stomach pain. Her ideal body weight for her height is 140 pounds for 5 feet 3.25 inches. Her highest weight was 362 pounds. Her highest body mass index was 63.8. She comes in 235 pounds from 231 pounds, 1 month ago. She has lost 127 pounds lifetime. Percent excess weight loss is 57 %. PHYSICAL EXAM: VITAL SIGNS: Height 5 foot 3.25 inches, weight 235 pounds. BMI 41.3 Vital Signs Temp 98.9 F 08/11/20 13:50 Pulse 77 08/11/20 13:50 Resp 18 08/11/20 13:50 BP 163/105 08/11/20 13:50 Pulse Ox GENERAL: Well-developed female in no acute distress. HEENT: No scleral icterus. Extraocular movements grossly intact. Hears conversational speech. No nasal drainage. NECK: Supple without lymphadenopathy. CHEST: Nonlabored respirations with equal bilateral excursions. CARDIOVASCULAR: Regular rate and rhythm. Distal 2+ pulses. ABDOMEN: Incisions are granulated. No peritonitis. Ventral hernia from non- bariatric sites MUSCULOSKELETAL: No clubbing, cyanosis. NEURO: No focal or lateralizing signs. Cranial nerves 2 through 12 grossly within normal limits. PSYCH: Appropriate affect. Alert and oriented to person, place and time. SKIN: Good skin turgor. Well perfused. LABS: Hgb up from 9.1 to 14.4 ASSESSMENT: 1. Morbid obesity due to excess calories. 2. Body mass index 63.4 down to 41.3 3. Status post gastric bypass 4. Dysphagia 5. Atypical chest pain 6. History of gastrointestinal bleeding 7. Diverticulosis 8. Peritoneal adhesions 9. Gastrointestinal hemorrhage 10. Lee colonic diverticulosis 11. Status post colectomy for diverticulitis 12. Diverticulitis 13. Anemia 14. Ventral hernia PLAN: 1. She has resolved anemia with elevation in her hemoglobin. 2. May evaluate in the future for ventral hernia surgery later. 3. Continue multivitamin 4. Recommend follow-up as needed.
[2020-08-11 14:04] VITALS: BP 163/105; PULSE 77; RESP 18; TEMP 98.9; BMI 41.3
== END ==
LOC: BARWHC3 12:48
PROVIDERS: ATTEND Surgery Plastic and Reconstructive Surgery
DX: E66.01 Morbid (severe) obesity due to excess calories (principal); R07.89 Other chest pain; R13.10 Dysphagia, unspecified; K57.30 Diverticulosis of large intestine without perforation or abscess without bleeding; K43.9 Ventral hernia without obstruction or gangrene; K66.0 Peritoneal adhesions (postprocedural) (postinfection); D64.9 Anemia, unspecified; Z68.41 Body mass index [BMI] 40.0-44.9, adult; Z98.84 Bariatric surgery status; Z98.890 Other specified postprocedural states; Z88.8 Allergy status to other drugs, medicaments and biological substances; Z87.891 Personal history of nicotine dependence
CPT/HCPCS: 99211

== ENCOUNTER → 2020-12-31 | Outpatient (CLI) | payer OTHER ==
--- NOTE | 2020-12-31 10:24 | XR ---
EXAMINATION TYPE: XR chest 2V DATE OF EXAM: 12/31/2020 COMPARISON: Chest x-ray June 16, 2020 HISTORY: Cough. TECHNIQUE: Frontal and lateral views of the chest are obtained. FINDINGS: Overlying bra strap. There is no suspicious focal air space opacity, pleural effusion, or pneumothorax seen. The cardiac silhouette size is within normal limits with atherosclerotic change a ortic knob. The osseous structures are intact. Cholecystectomy clips noted IMPRESSION: No acute pulmonary process.
== END | disposition home or self-care (01) ==
LOC: RADXRMAIN 08:43
PROVIDERS: ATTEND Family Medicine
DX: R06.02 Shortness of breath (principal); R05.9 Cough, unspecified
CPT/HCPCS: 71046

== ENCOUNTER → 2021-01-11 | Outpatient (CLI) | payer OTHER ==
--- NOTE | 2021-01-11 11:54 | BD ---
EXAMINATION TYPE: Axial Bone Density DATE OF EXAM: 01/11/2021 COMPARISON: NONE CLINICAL HISTORY: Postmenopausal female. Height: 62.5 IN Weight: 239 LBS RISK FACTORS HISTORY OF: Active: YES Diet low in dairy products/other sources of calcium: YES Postmenopausal woman: AGE 52; TOTAL HYST AGE 64 MEDICATIONS: Thyroid Medications: YES Which medication: Levothyroxine How Lon+ YEARS Additional Medications: CALCIUM, VIT D, LEVOTHYROXINE, WELLBUTRIN, BLOOD PRESSURE MED, LIPITOR EXAM MEASUREMENTS: Bone mineral densitometry was performed using the D square nv System. Bone mineral density as measured about the Lumbar spine is: ----- L1-L4(G/cm2): 1.476 T Score Values are as follows: ----- L2: 4.1 ----- L3: 4.2 ----- L4: 2.1 ----- L1-L4: 2.5 Bone mineral density BASELINE Bone mineral density about the R hip (g/cm2): 0.947 Bone mineral density about the L hip (g/cm2): 0.951 T Score values are as follows: -----R Neck: -0.7 -----L Neck: -0.6 -----R Total: -0.1 -----L Total: -0.2 Bone mineral density BASELINE IMPRESSION: Normal (Values between +1 and -1 indicate normal bone mass). Consider repeating this study in 5 year s or sooner if there is some new clinical indication. NOTE: T-SCORE=SD OF THE YOUNG ADULT MEAN.
== END | disposition home or self-care (01) ==
LOC: RADBDWWP 08:29
PROVIDERS: ATTEND Obstetrics & Gynecology
DX: Z78.0 Asymptomatic menopausal state (principal)
CPT/HCPCS: 77080

== ENCOUNTER 2021-03-09 18:40 | Inpatient (IN) | payer OTHER ==
[2021-03-09] MEDS ORDERED: NALOXONE 0.4 MG/ML 1 ML VIAL IV PRN (18:48)
--- NOTE | 2021-03-09 19:00 | ED ---
General Adult HPI - General Chief complaint: GI Bleed Stated complaint: GI Bleed Time Seen by Provider: 03/09/21 18:48 Source: patient, RN notes reviewed, old records reviewed Mode of arrival: EMS Limitations: no limitations - History of Present Illness Initial comments: 65-year-old female presenting from [facility]. Patient was a transfer for surgical evaluation. She is known to Dr. Murray. The patient states that she had presented to the outside hospital with multiple episodes of bright red bowel movements. She has a known history of diverticulosis. She denies significant abdominal pain. Denies chest pain or dyspnea. Denies fever. She is not on any anticoagulation. - Related Data Home Medications Medication Instructions Recorded Confirmed buPROPion XL [Wellbutrin XL] 300 mg PO DAILY 07/29/18 12/15/20 Omeprazole [PriLOSEC] 40 mg PO DAILY 11/12/19 12/15/20 Atorvastatin [Lipitor] 5 mg PO DAILY 04/28/20 12/15/20 Levothyroxine Sodium [Synthroid] 25 mcg PO DAILY 04/28/20 12/15/20 Levothyroxine Sodium [Synthroid] 200 mcg PO DAILY 04/28/20 12/15/20 Sucralfate [Carafate] 1 gm PO BID 04/28/20 12/15/20 Cyanocobalamin [Vitamin B-12] 500 mcg PO DAILY 06/14/20 12/15/20 Magnesium 250 mg PO DAILY 06/14/20 12/15/20 Multivitamins, Thera [Multivitamin 1 tab PO DAILY 06/14/20 12/15/20 (formulary)] polyethylene glycoL 3350 [Miralax] 17 gm PO DAILY 06/14/20 12/15/20 Lisinopril [Prinivil] 5 mg PO DAILY 06/20/20 12/15/20 Previous Rx's Medication Instructions Recorded Acetaminophen Tab [Tylenol Tab] 1,000 mg PO Q6HR PRN #30 tablet 06/19/20 Omeprazole [PriLOSEC] 40 mg PO DAILY #30 capsule. 06/21/20 Ondansetron Odt [Zofran Odt] 4 mg PO Q8HR PRN #9 tab 06/21/20 Simethicone 40 mg/0.6 ml Drops 40 mg PO PCHS PRN #30 ml 06/21/20 [Mylicon Drops] bisacodyL [Dulcolax] 5 mg PO DAILY PRN #10 tablet. 06/21/20 Ciprofloxacin HCl [Cipro] 500 mg PO Q12HR #14 tablet 07/14/20 metroNIDAZOLE [Flagyl] 500 mg PO TID #30 tab 07/14/20 Allergies Allergy/AdvReac Type Severity Reaction Status Date / Time prednisone Allergy Rash/Hives/ Verified 03/09/21 18:53 swelling Review of Systems ROS Statement: Those systems with pertinent positive or pertinent negative responses have been documented in the HPI. ROS Other: All systems not noted in ROS Statement are negative. Past Medical History Past Medical History: Diabetes Mellitus, GERD/Reflux, GI Bleed, Hyperlipidemia, Hypertension, Renal Disease, Thyroid Disorder Additional Past Medical History / Comment(s): Hiatal hernia, diverticulitis w/ lower GI bleed, gastric stricture/dysphagia w/ dilation, gastric benign polyp, NIDDM type II-no longer on meds since wt loss, GI bleed in "old stomach" (hx gastric bypass, GI bleed R/T stomach that is not used). HAS ONLY LEFT KIDNEY History of Any Multi-Drug Resistant Organisms: None Reported Past Surgical History: Adenoidectomy, Bariatric Surgery, Breast Surgery, Cholecystectomy, Hysterectomy, Tonsillectomy, Tubal Ligation Additional Past Surgical History / Comment(s): R nephrectomy(congental defect)/ureterectomy, thyroidectomy, Immanuel en Y gastric bypass EGD with dilation, colonoscopy, hysteroscopy D&C x2, Rt breast benign biopsy; colon resection 06/17/2020. Past Anesthesia/Blood Transfusion Reactions: Previous Problems w/ Anesthesia, Motion Sickness, Postoperative Nausea & Vomiting (PONV) Additional Past Anesthesia/Blood Transfusion Reaction / Comment(s): Hard time awakening from anesthesia-" TAKES LONGER TO WAKE UP" Past Psychological History: Anxiety Smoking Status: Former smoker Past Alcohol Use History: None Reported Past Drug Use History: None Reported - Past Family History Father Family Medical History: Cancer Additional Family Medical History / Comment(s): LUNG Mother Family Medical History: Cancer Additional Family Medical History / Comment(s): BREAST Sister(s) Family Medical History: Cancer Additional Family Medical History / Comment(s): 2 SISTER HAD BREAST CANCER Brother(s) Family Medical History: Myocardial Infarction ([place]) Additional Family Medical History / Comment(s): Brother is living. He had a [place] at the age of 50yrs. General Exam Limitations: no limitations General appearance: alert, in no apparent distress Head exam: Present: atraumatic, normocephalic Eye exam: Present: normal appearance, PERRL ENT exam: Present: normal exam Neck exam: Present: normal inspection Respiratory exam: Present: normal lung sounds bilaterally. Absent: respiratory distress, wheezes Cardiovascular Exam: Present: regular rate, normal rhythm GI/Abdominal exam: Present: soft. Absent: distended, tenderness, guarding, rebound Extremities exam: Present: normal inspection, normal capillary refill. Absent: pedal edema Neurological exam: Present: alert, oriented X3, CN II-XII intact. Absent: motor sensory deficit Psychiatric exam: Present: normal affect, normal mood Skin exam: Present: warm, dry, intact. Absent: cyanosis, diaphoretic Course Vital Signs 03/09/21 18:49 Temperature 97.8 F Pulse Rate 91 Respiratory 18 Rate Blood Pressure 114/78 O2 Sat by Pulse 94 L Oximetry Medical Decision Making - Medical Decision Making There was no laboratory testing to accompany this patient. There was no ER note accompanying this patient. All laboratory testing will be repeated. Dr. Murray is aware of the admission and the patient's arrival. Repeat laboratory testing is pending. Disposition Clinical Impression: Hematochezia, GI bleed Disposition: ADMITTED IP TO [facility] Condition: Stable Is patient prescribed a controlled substance at d/c from ED?: No Referrals: Stephy Harris MD [Primary Care Provider] - 1-2 days Decision to Admit Reason: Admit from EC Decision Date: 03/09/21 Decision Time: 19:00
[2021-03-09] MEDS: SODIUM CHLORIDE 0.9% 1,000 ML IV SCH (19:30)
[2021-03-09 19:51] LABS: Basophils # (A) 0.1 k/uL (0-0.2); Basophils % (A) 1 %; Eosinophils # (A) 0.2 k/uL (0-0.7); Eosinophils % (A) 2 %; HCT 38.8 % (34.0-46.0); Lymphocytes # (A) 1.2 k/uL (1.0-4.8); Lymphocytes % (A) 14 %; MCH 31.5 pg (25.0-35.0); MCHC 33.4 g/dL (31.0-37.0); MCV 94.2 fL (80.0-100.0); Monocytes # (A) 0.3 k/uL (0-1.0); Monocytes % (A) 4 %; Neutrophils # (A) 7.1 k/uL (1.3-7.7); Neutrophils % (A) 79 %; Platelet Count 156 k/uL (150-450); RBC 4.12 m/uL (3.80-5.40); RDW 13.6 % (11.5-15.5); WBC 8.9 k/uL (3.8-10.6)
[2021-03-09 20:01] LABS: Albumin 2.9 g/dL (3.5-5.0); Calcium 7.8 mg/dL (8.4-10.2); Potassium 4.1 mmol/L (3.5-5.1); Total Bilirubin 0.4 mg/dL (0.2-1.3); Total Protein 5.5 g/dL (6.3-8.2)
[2021-03-09 20:09] LABS: INR 0.9 (<1.2); Prothrombin Time 10.2 sec (9.0-12.0)
[2021-03-10 05:52] LABS: Glucose,Whole Blood 122 mg/dL (75-99)
--- NOTE | 2021-03-10 07:33 | P.GSHP ---
History of Present Illness H&P Date: 03/09/21 CHIEF COMPLAINT: GI bleed HISTORY OF PRESENT ILLNESS: Laura Bishop is a 65-year-old female status post gastric bypass, 12/17/2017. She is over 3 years ago and status post sigmoid colectomy 06/17/2020, 9 months ago who reports developing bright red blood per rectum while at work. She had increasing amounts and episodes during the day prompting her to go to the emergency room. She has pre-existing history of gastrointestinal bleeding over a year ago requiring blood transfusions. She reports of avoiding foods with seeds with her history of pandiverticulosis. Last colonoscopy 04/21/2020 with internal and external hemorrhoids including severe sigmoid diverticulosis and pandiverticulosis. She reports mild epigastric discomfort prior to bowel movements that has now resolved. Patient was admitted as a transfer from [facility] due to acute gastrointestinal bleeding. She is admitted for acute gastrointestinal hemorrhage. PAST MEDICAL HISTORY: 1. Morbid obesity due to excess calories 2. Body mass index of 63.4, initial 3. Thyroid neoplasm. 4. Diabetes type 2. 5. Hyperlipidemia. 6. Essential hypertension. 7. Depression. 8. Gastroesophageal reflux disease. 9. Hypothyroidism. 10. Hyperlipidemia. 11. Seasonal ALLERGIES. 12. Gastrointestinal bleed 13. Diverticulosis PAST SURGICAL HISTORY: 1. Total thyroidectomy. 2. Adenoidectomy. 3. Cholecystectomy. 4. Tonsillectomy. 5. Tubal ligation. 6. Colonoscopy. 7. Right nephrectomy. 8. Breast biopsy. 9. D&C. 10. Upper endoscopy. 11. Sigmoid colectomy HOME MEDICATIONS: ALLERGIES: 1. Prednisone SOCIAL HISTORY: Former tobacco use. No active alcohol use. FAMILY HISTORY: No family history of ulcerative colitis disease or Crohn's disease. She does have a family history of morbid obesity. She denies any lupus in her family. No reports of stomach or esophageal cancer. She has a family history of diabetes. REVIEW OF ORGAN SYSTEMS: CONSTITUTIONAL: Her highest weight was 360 pounds. Her highest body mass index was 63.4. Her ideal body weight is 140 pounds. HEENT: Denies any active troubles with vision or hearing. Has troubles with swallowing now resolved after thyroidectomy. ENDOCRINE: Has insulin dependent diabetes now resolved. Has hypothyroidism. CARDIOVASCULAR: Recent chest pain. History of hypertension. RESPIRATORY: Has daytime somnolence including snoring and sleep apnea. No asthma. GI: Has pandiverticulosis with intermittent gastrointestinal bleeding. MUSCULOSKELETAL: Has lower back pain and joint pain. Has osteoarthritis of the hips and knees. NEURO: No headaches. No seizure disorders. PSYCH: Has depression without suicidal ideation. RHEUMATOLOGIC: No lupus. No rheumatoid arthritis. HEMATOLOGIC: Denies any abnormal bleeding or bruising. No personal history of DVTs. SKIN: No rash. No skin cancer. PHYSICAL EXAM: VITAL SIGNS: Height 5 foot 3.25 inches, weight 239 pounds. BMI 42.2 GENERAL: Well-developed female in no acute distress. HEENT: No scleral icterus. Extraocular movements grossly intact. Hears conversational speech. No nasal drainage. NECK: Supple without lymphadenopathy. Well-healed collar incision from previous thyroidectomy. CHEST: Nonlabored respirations with equal bilateral excursions. CARDIOVASCULAR: Regular rate and rhythm. Distal 2+ pulses. ABDOMEN: Soft, nontender. Nondistended. MUSCULOSKELETAL: No clubbing, cyanosis. NEURO: No focal or lateralizing signs. Cranial nerves 2 through 12 grossly wit hin normal limits. PSYCH: Appropriate affect. Alert and oriented to person, place and time. SKIN: Good skin turgor. Well perfused. LABS: Reviewed. Hemoglobin at outside institution 13.9. WBC normal. ASSESSMENT: 1. Gastrointestinal bleeding with diverticulosis 2. Morbid obesity due to excess calories, Body mass index 63.4 down to 41.9 3. Status post gastric bypass 4. Dysphagia 5. Atypical chest pain 6. History of gastrointestinal bleeding 7. Diverticulosis 8. Peritoneal adhesions 9. Gastrointestinal hemorrhage 10. Diverticulosis PLAN: 1. Recommend inpatient admission due to acute gastrointestinal bleeding 2. Monitor hemoglobin. Transfusion for symptomatic anemia her hemoglobin less than 7.0. 3. We'll hold all anticoagulants. 4. Clear liquid diet in the interim. 5. May need repeat colonoscopy for persistent gastrointestinal bleeding Past Medical History Past Medical History: Diabetes Mellitus, GERD/Reflux, GI Bleed, Hyperlipidemia, Hypertension, Renal Disease, Thyroid Disorder Additional Past Medical History / Comment(s): Hiatal hernia, diverticulitis w/ lower GI bleed, gastric stricture/dysphagia w/ dilation, gastric benign polyp, NIDDM type II-no longer on meds since wt loss, GI bleed in "old stomach" (hx gastric bypass, GI bleed R/T stomach that is not used). HAS ONLY LEFT KIDNEY History of Any Multi-Drug Resistant Organisms: None Reported Past Surgical History: Adenoidectomy, Bariatric Surgery, Breast Surgery, Cholecystectomy, Hysterectomy, Tonsillectomy, Tubal Ligation Additional Past Surgical History / Comment(s): R nephrectomy(congental defect)/ureterectomy, thyroidectomy, [facility] gastric bypass EGD with dilation, colonoscopy, hysteroscopy D&C x2, Rt breast benign biopsy; colon resection 06/17/2020. Past Anesthesia/Blood Transfusion Reactions: Previous Problems w/ Anesthesia, Motion Sickness, Postoperative Nausea & Vomiting (PONV) Additional Past Anesthesia/Blood Transfusion Reaction / Comment(s): Hard time awakening from anesthesia-" TAKES LONGER TO WAKE UP" Past Psychological History: Anxiety Smoking Status: Former smoker Past Alcohol Use History: None Reported Past Drug Use History: None Reported - Past Family History Father Family Medical History: Cancer Additional Family Medical History / Comment(s): LUNG Mother Family Medical History: Cancer Additional Family Medical History / Comment(s): BREAST Sister(s) Family Medical History: Cancer Additional Family Medical History / Comment(s): 2 SISTER HAD BREAST CANCER Brother(s) Family Medical History: Myocardial Infarction (MS) Additional Family Medical History / Comment(s): Brother is living. He had a MS at the age of 50yrs. Medications and Allergies Home Medications Medication Instructions Recorded Confirmed Type buPROPion XL [Wellbutrin XL] 300 mg PO DAILY 07/29/18 03/09/21 History Levothyroxine Sodium [Synthroid] 12.5 mcg PO DAILY 04/28/20 03/09/21 History Levothyroxine Sodium [Synthroid] 200 mcg PO DAILY 04/28/20 03/09/21 History Cyanocobalamin [Vitamin B-12] 500 mcg PO HS 06/14/20 03/09/21 History Multivitamins, Thera [Multivitamin 1 tab PO HS 06/14/20 03/09/21 History (formulary)] Atorvastatin [Lipitor] 10 mg PO DAILY 03/09/21 03/09/21 History Cholecalciferol [Vitamin D3 (25 25 mcg PO HS 03/09/21 03/09/21 History Mcg = 1000 Iu)] Hydrochlorothiazide 12.5 mg PO DAILY 03/09/21 03/09/21 History [hydroCHLOROthiazide] Losartan Potassium [Cozaar] 25 mg PO DAILY 03/09/21 03/09/21 History Vitamin A [Vitamin A (8,000 Units 2,400 mcg PO HS 03/09/21 03/09/21 History = 2,400 MCG)] Zinc 50 mg PO HS 03/09/21 03/09/21 History Allergies Allergy/AdvReac Type Severity Reaction Status Date / Time prednisone Allergy Rash/Hives/ Verified 03/09/21 19:49 swelling Surgical - Exam Vital Signs Temp Pulse Resp BP Pulse Ox 97.8 F 91 18 114/78 94 L 03/09/21 18:49 03/09/21 18:49 03/09/21 18:49 03/09/21 18:49 03/09/21 18:49 Results - Labs 03/09/21 19:46 03/09/21 19:46 Assessment and Plan (1) Morbid obesity due to excess calories Current Visit: Yes Status: Acute Code(s): E66.01 - MORBID (SEVERE) OBESITY DUE TO EXCESS CALORIES SNOMED Code(s): 250339301 (2) Body mass index (BMI) of 40.1 to 44.9 in adult Current Visit: Yes Status: Acute Code(s): Z68.41 - BODY MASS INDEX [BMI] 40.0-44.9, ADULT SNOMED Code(s): 977889281 (3) GI bleed Current Visit: Yes Status: Acute Code(s): K92.2 - GASTROINTESTINAL HEMORRHAGE, UNSPECIFIED SNOMED Code(s): 76588873 (4) Hematochezia Current Visit: Yes Status: Acute Code(s): K92.1 - MELENA SNOMED Code(s): 468405928 (5) Diverticulosis large intestine w/o perforation or abscess w/bleeding Current Visit: No Status: Acute Code(s): K57.31 - DVRTCLOS OF LG INT W/O PERFORATION OR ABSCESS W BLEEDING SNOMED Code(s): 7456031680432459 (6) History of gastric bypass Current Visit: No Status: Acute Code(s): Z98.84 - BARIATRIC SURGERY STATUS SNOMED Code(s): 163757140 (7) Lower GI bleed Current Visit: No Status: Acute Code(s): K92.2 - GASTROINTESTINAL HEMORRHAGE, UNSPECIFIED SNOMED Code(s): 34247928
[2021-03-10 08:21] LABS: Basophils # (A) 0.1 k/uL (0-0.2); Basophils % (A) 1 %; Eosinophils # (A) 0.2 k/uL (0-0.7); Eosinophils % (A) 3 %; HCT 36.4 % (34.0-46.0); HGB 11.7 gm/dL (11.4-16.0); Lymphocytes # (A) 1.2 k/uL (1.0-4.8); Lymphocytes % (A) 23 %; MCH 31.7 pg (25.0-35.0); MCHC 32.2 g/dL (31.0-37.0); MCV 98.5 fL (80.0-100.0); Mean Platelet Volume 9.4; Monocytes # (A) 0.3 k/uL (0-1.0); Monocytes % (A) 6 %; Neutrophils # (A) 3.5 k/uL (1.3-7.7); Neutrophils % (A) 65 %; Platelet Count 133 k/uL (150-450); RBC 3.69 m/uL (3.80-5.40); RDW 14.4 % (11.5-15.5); WBC 5.3 k/uL (3.8-10.6)
[2021-03-10 08:38] LABS: Calcium 7.5 mg/dL (8.4-10.2); Potassium 3.8 mmol/L (3.5-5.1)
[2021-03-10] MEDS: ATORVASTATIN 10 MG TAB PO SCH (09:03)
[2021-03-10] MEDS: PANTOPRAZOLE 40 MG/10 ML VIAL IV SCH (09:03)
[2021-03-10] MEDS: buPROPion XL 300 MG TAB.ER.24H PO SCH (09:04)
[2021-03-10] MEDS: SODIUM CHLORIDE 0.9% 1,000 ML IV SCH ×2 (09:04→22:40)
[2021-03-10] MEDS: LEVOTHYROXINE 100 MCG TAB PO SCH (09:07)
[2021-03-10] MEDS: LEVOTHYROXINE 25 MCG TAB PO SCH (09:08)
[2021-03-10] MEDS: hydroCHLOROthiazide 12.5 MG CAP PO SCH (09:13)
[2021-03-10] MEDS: LOSARTAN 25 MG TAB PO SCH (09:15)
--- NOTE | 2021-03-10 11:33 | P.PN ---
Subjective Progress Note Date: 03/10/21 CHIEF COMPLAINT: GI bleed HISTORY OF PRESENT ILLNESS: Terri is a 65-year-old female status post gastric bypass, 12/17/2017. She is status post sigmoid colectomy presented to the emergency department with complaints of rectal bleeding and blood in the stool. She has pre-existing history of gastrointestinal bleeding over a year ago requiring blood transfusions. She reports of avoiding foods with seeds with her history of pandiverticulosis. Last colonoscopy 04/21/2020 with internal and external hemorrhoids including severe sigmoid diverticulosis and pandiv erticulosis. Further night she had 2-3 more bloody bowel movements. Per patient and nursing they reported them as maroon to bright red in color. She states around 3 AM she did have some abdominal discomfort followed by the bowel movement. She also states she's having some nausea this morning. She's been afebrile. Repeat hemoglobin this morning 11.7 down from 13.0. PHYSICAL EXAM: VITAL SIGNS: Reviewed. GENERAL: Well-developed in no acute distress. HEENT: No sclera icterus. Extraocular movements grossly intact. Moist buccal mucosa. Head is atraumatic, normocephalic. ABDOMEN: Soft. Nondistended. Nontender. NEUROLOGIC: Alert and oriented. Cranial nerves II through XII grossly intact. ASSESSMENT: 1. Gastrointestinal bleeding with diverticulosis 2. Morbid obesity due to excess calories, Body mass index 63.4 down to 41.9 3. Status post gastric bypass 4. Dysphagia 5. Atypical chest pain 6. History of gastrointestinal bleeding 7. Diverticulosis 8. Peritoneal adhesions 9. Gastrointestinal hemorrhage 10. Diverticulosis PLAN: 1. Recommend inpatient admission due to acute gastrointestinal bleeding 2. Monitor hemoglobin. Transfusion for symptomatic anemia her hemoglobin less than 7.0. 3. Hold any anticoagulation 4. Clear liquid diet, nothing by mouth after midnight 5. Patient scheduled for EGD and colonoscopy tomorrow 6. Bowel prep this afternoon Thank you for this consultation, we will continue to follow The impression and plan of care has been dictated as directed. Dr Vergara I performed a history and examination of this patient, discussed the same with the dictator. I agree with the dictator's note ,documented as a scribe. Any additional findings or plans will be noted. Objective - Vital Signs Vital signs: Vital Signs Temp 97.7 F 03/10/21 09:01 Pulse 72 03/10/21 09:01 Resp 16 03/10/21 09:01 BP 119/74 03/10/21 09:01 Pulse Ox 97 03/10/21 09:01 Intake & Output 03/09/21 03/10/21 03/10/21 18:59 06:59 18:59 Weight 111.13 kg 110.8 kg Other: Voiding Method Toilet # Voids 1 - Labs CBC & Chem 7: 03/10/21 07:57 03/10/21 07:57 Labs: Abnormal Lab Results - Last 24 Hours (Table) 03/09/21 03/10/21 03/10/21 Range/Units 19:46 05:49 07:57 RBC 3.69 L (3.80-5.40) m/uL Plt Count 133 L (150-450) k/uL Chloride 108 H (98-107) mmol/L Carbon Dioxide 21 L (22-30) mmol/L BUN 36 H (7-17) mg/dL Creatinine 1.08 H (0.52-1.04) mg/dL Glucose 153 H (74-99) mg/dL POC Glucose (mg/dL) 122 H (75-99) mg/dL Calcium 7.8 L (8.4-10.2) mg/dL Total Protein 5.5 L (6.3-8.2) g/dL Albumin 2.9 L (3.5-5.0) g/dL 03/10/21 Range/Units 07:57 RBC (3.80-5.40) m/uL Plt Count (150-450) k/uL Chloride (98-107) mmol/L Carbon Dioxide (22-30) mmol/L BUN 32 H (7-17) mg/dL Creatinine 1.16 H (0.52-1.04) mg/dL Glucose 241 H (74-99) mg/dL POC Glucose (mg/dL) (75-99) mg/dL Calcium 7.5 L (8.4-10.2) mg/dL Total Protein (6.3-8.2) g/dL Albumin (3.5-5.0) g/dL
[2021-03-10] MEDS ORDERED: POLYETHYLENE GLYCOL LYTES SOLN 4,000 ML SOLN.RECON PO ONE (14:00)
[2021-03-10] MEDS: CYANOCOBALAMIN 500 MCG TAB PO SCH (19:52)
[2021-03-11 08:21] LABS: Basophils # (A) 0.1 k/uL (0-0.2); Basophils % (A) 1 %; Eosinophils # (A) 0.2 k/uL (0-0.7); Eosinophils % (A) 5 %; HCT 35.5 % (34.0-46.0); HGB 11.6 gm/dL (11.4-16.0); Lymphocytes # (A) 1.1 k/uL (1.0-4.8); Lymphocytes % (A) 27 %; MCH 31.9 pg (25.0-35.0); MCHC 32.7 g/dL (31.0-37.0); MCV 97.5 fL (80.0-100.0); Mean Platelet Volume 8.8; Monocytes # (A) 0.2 k/uL (0-1.0); Monocytes % (A) 6 %; Neutrophils # (A) 2.4 k/uL (1.3-7.7); Neutrophils % (A) 58 %; Platelet Count 141 k/uL (150-450); RBC 3.63 m/uL (3.80-5.40); RDW 14.2 % (11.5-15.5); WBC 4.1 k/uL (3.8-10.6)
[2021-03-11 08:33] LABS: Calcium 7.7 mg/dL (8.4-10.2); Potassium 3.9 mmol/L (3.5-5.1)
[2021-03-11] MEDS: PANTOPRAZOLE 40 MG/10 ML VIAL IV SCH (09:20)
[2021-03-11] MEDS: SODIUM CHLORIDE 0.9% 1,000 ML IV SCH (12:02)
[2021-03-11] MEDS ORDERED: IV FLUID CONTINUATION 1,000 ML IV ONE ×2 (14:16)
[2021-03-11] MEDS ORDERED: LIDOCAINE 1% INJ 10MG/ML (20 ML MDV) ONE (14:20)
[2021-03-11] MEDS ORDERED: PROPOFOL 10 MG/ML 20 ML VIAL IV ONE (14:20)
[2021-03-11] MEDS: LEVOTHYROXINE 100 MCG TAB PO SCH (15:45)
[2021-03-11] MEDS: LEVOTHYROXINE 25 MCG TAB PO SCH (15:45)
[2021-03-11] MEDS: hydroCHLOROthiazide 12.5 MG CAP PO SCH (15:59)
[2021-03-11] MEDS: ATORVASTATIN 10 MG TAB PO SCH (15:59)
[2021-03-11] MEDS: buPROPion XL 300 MG TAB.ER.24H PO SCH (15:59)
[2021-03-11] MEDS: LOSARTAN 25 MG TAB PO SCH (15:59)
--- NOTE | 2021-03-11 17:00 | P.PCN ---
Date of Procedure: 03/11/21 Description of Procedure: PREOPERATIVE DIAGNOSES: 1. Gastrointestinal bleeding with melena 2. Epigastric abdominal pain. 3. History of gastric bypass. 4. History of gastric ulcers. POSTOPERATIVE DIAGNOSES: 1. Gastrojejunal ulcers without stricture without perforation with recent bleeding 2. Gastrointestinal bleeding with melena 3. History of gastric bypass. 4. Epigastric abdominal pain. PROCEDURE PERFORMED: Esophagogastrojejunoscopy. SURGEON: Qian Murray MD ANESTHESIA: MAC. INDICATIONS: The patient is a 65-year-old female presents with acute gastrointestinal bleeding 3 days with melanotic stools. She had a hemoglobin drop over 2 g in 24-48 hours. Upper endoscopy is [place] for diagnostic and therapeutic management. Informed consent was obtained. DESCRIPTION: Patient was brought to the endoscopy suite and laid in the left lateral decubitus position. After adequate IV sedation, a bite block was placed. An Olympus gastroscope was passed along the posterior oropharynx down to the distal esophagus where the squamocolumnar junction was found at approximately 36 cm from the incisors. The anastomosis was found at 42 cm, consistent with approximately 6 cm gastric pouch. The scope was advanced 60 cm from the incisors. No evidence of foreign body was found. Acute active 1-cm gastrojejunal ulcerations were encountered. The GI tract was desufflated. The patient tolerated the procedure well. FINDINGS: 1. Acute gastrojejunal ulceration, 1-cm with recent bleed. 2. No foreign body found along the anastomosis. 3. Gastric pouch, 6 cm PLAN: 1. Carafate 1 g twice a day 2. Protonix 40 mg twice daily 3. Proceed with lower endoscopy.
--- NOTE | 2021-03-11 17:06 | P.PCN ---
Date of Procedure: 03/11/21 Description of Procedure: PREOPERATIVE DIAGNOSIS: Gastrointestinal bleeding with melea Acute blood loss due to gastrointestinal bleeding Personal history diverticulosis POSTOPERATIVE DIAGNOSIS: Gastrointestinal bleeding, acute for upper GI source Acute blood loss Gastrointestinal bleeding with melena Severe sigmoid diverticulosis with pandiverticulosis Grade 2 internal hemorrhoids without bleeding OPERATION: Colonoscopy to the cecum, ileocecal valve and appendiceal orifice SURGEON: Qian Murray MD. ANESTHESIA: MAC. INDICATIONS: The patient is a 65-year-old female who presents with gastrointestinal bleeding and melena for over 24-48 hours. Benefits and risks were described and informed consent was obtained. DESCRIPTION OF PROCEDURE: The patient had undergone attempted Golytely prep 2 L. The patient had been brought into the operating room and laid in the left lateral decubitus position. After adequate intravenous sedation, the rectum was examined with 2% lidocaine jelly. External grade 2 internal/external hemorrhoid without recent inflammation or bleeding was found. The rectal tone was within normal limits. An Olympus colonoscope was gently advanced to the cecum with visualization of the ileocecal valve including appendiceal orifice. Fresh blood was identified involving the sigmoid colon transverse colon. At the ileocecal bowel, brown stool was identified. The prep was good. Severe [place] pandiverticulosis with sigmoid diverticulosis was encountered. No colitis or inflammation along the diverticula were identified. Fresh was irrigated from the colon. No intraluminal masses were identified within the colon. No colonic polyps were found. No focal colitis was found. Colorectal anastomosis was found between 10-15 cm from the anal verge with residuals silk suture in the lumen. Retroflexion of the scope demonstrated grade 2 internal hemorrhoids without inflammation. The colon was desufflated. The patient had tolerated the procedure well. Withdrawal time was over 6 minutes. FINDINGS: Aronchick preparation quality scale 2 (1-5) Internal hemorrhoids, grade 2 without recent inflammation No thrombosed hemorrhoid identified. No arteriovenous malformations. No adenomatous polyps. No focal colitis. Fresh blood throughout colon consistent with recent upper GI source melanotic bleeding Colorectal anastomosis 10:15 centimeters from the anal verge with silk suture identified. RECOMMENDATIONS: 1. Carafate and Protonix for gastrojejunal ulcer with bleeding. Plan - Discharge Summary Discharge Rx Participant: No New Discharge Prescriptions: No Action buPROPion XL [Wellbutrin XL] 300 mg PO DAILY Levothyroxine Sodium [Synthroid] 12.5 mcg PO DAILY Levothyroxine Sodium [Synthroid] 200 mcg PO DAILY Cyanocobalamin [Vitamin B-12] 500 mcg PO HS Multivitamins, Thera [Multivitamin (formulary)] 1 tab PO HS Zinc 50 mg PO HS Losartan Potassium [Cozaar] 25 mg PO DAILY Atorvastatin [Lipitor] 10 mg PO DAILY Vitamin A [Vitamin A (8,000 Units = 2,400 MCG)] 2,400 mcg PO HS Cholecalciferol [Vitamin D3 (25 Mcg = 1000 Iu)] 25 mcg PO HS Hydrochlorothiazide [hydroCHLOROthiazide] 12.5 mg PO DAILY Discharge Medication List buPROPion XL [Wellbutrin XL] 300 mg PO DAILY 07/29/18 [History] Levothyroxine Sodium [Synthroid] 12.5 mcg PO DAILY 04/28/20 [History] Levothyroxine Sodium [Synthroid] 200 mcg PO DAILY 04/28/20 [History] Cyanocobalamin [Vitamin B-12] 500 mcg PO HS 06/14/20 [History] Multivitamins, Thera [Multivitamin (formulary)] 1 tab PO HS 06/14/20 [History] Atorvastatin [Lipitor] 10 mg PO DAILY 03/09/21 [History] Cholecalciferol [Vitamin D3 (25 Mcg = 1000 Iu)] 25 mcg PO HS 03/09/21 [History] Hydrochlorothiazide [hydroCHLOROthiazide] 12.5 mg PO DAILY 03/09/21 [History] Losartan Potassium [Cozaar] 25 mg PO DAILY 03/09/21 [History] Vitamin A [Vitamin A (8,000 Units = 2,400 MCG)] 2,400 mcg PO HS 03/09/21 [History] Zinc 50 mg PO HS 03/09/21 [History] Follow up Appointment(s)/Referral(s): Stephy Harris MD [Primary Care Provider] - 1-2 days
[2021-03-11] MEDS: CYANOCOBALAMIN 500 MCG TAB PO SCH (20:21)
--- NOTE | 2021-03-11 22:28 | P.PN ---
Subjective Progress Note Date: 03/11/21 CHIEF COMPLAINT: Gastrointestinal bleed HISTORY OF PRESENT ILLNESS: The patient is a 65-year-old female status post upper and lower endoscopy. She reports new left lower quadrant discomfort. Epigastric abdominal pain improved. ROS: No reports of nausea and vomiting. No fevers or chills. No new chest pain. No productive sputum PHYSICAL EXAM: VITAL SIGNS: Reviewed CONSTITUTIONAL: Well developed and in no acute distress. EYES: Conjuctivae without sclera icterus. Extraocular movements grossly intact. HEAD, EARS, NOSE, THROAT: Moist buccal mucosa. Head is atraumatic, normocephalic. Hears conversational speech. No nasal drainage. NECK: No gross thyroidomegaly. No jugular venous distention. RESPIRATORY: Non-labored respirations and equal bilateral excursions. CARDIOVASCULAR: Palpable 2+ radial pulses. Regular rate. Regular rhythm. ABDOMEN: Protuberant. No peritonitis. MUSCULOSKELETAL: No gross deformity of the lower extremities noted. No clubbing. No cyanosis. SKIN: Good skin turgor. Well perfused. NEUROLOGIC: Cranial nerves II through XII grossly intact. No focal or lateralizing signs. PSYCH: Appropriate affect. Alert and oriented to person, place and time. CLINICAL LABS: White blood cell count normal 4.1. Hemoglobin dropped from 13.0- 11.6 ASSESSMENT: 1. Acute gastrointestinal bleeding. 2. Gastrojejunal ulcer with bleeding PLAN: 1. Patient started on oral Protonix 40 mg twice daily. 2. Carafate 1 g 3 times daily 3. Discharge home pending non-bloody bowel movement Objective - Vital Signs Vital signs: Vital Signs Temp 98 F 03/10/21 19:45 Pulse 74 03/11/21 15:14 Resp 16 03/11/21 15:30 BP 147/79 03/11/21 15:30 Pulse Ox 99 03/11/21 15:30 Intake & Output 03/11/21 03/11/21 03/12/21 06:59 18:59 06:59 Intake Total 815 Balance 815 Weight 109.4 kg Intake: IV 575 Sodium Chloride 0.9% 1, 375 000 ml @ 75 mls/hr IV . [id number] [facility] Rx#:[id number] Oral 240 Other: Voiding Method Toilet # Voids 1 # Bowel Movements 1 - Labs CBC & Chem 7: 03/11/21 07:52 03/11/21 07:52 Labs: Abnormal Lab Results - Last 24 Hours (Table) 03/11/21 03/11/21 Range/Units 07:52 07:52 RBC 3.63 L (3.80-5.40) m/uL Plt Count 141 L (150-450) k/uL Chloride 111 H (98-107) mmol/L Glucose 126 H (74-99) mg/dL Calcium 7.7 L (8.4-10.2) mg/dL Assessment and Plan (1) Morbid obesity due to excess calories Current Visit: Yes Status: Acute Code(s): E66.01 - MORBID (SEVERE) OBESITY DUE TO EXCESS CALORIES SNOMED Code(s): 490096265 (2) Body mass index (BMI) of 40.1 to 44.9 in adult Current Visit: Yes Status: Acute Code(s): Z68.41 - BODY MASS INDEX [BMI] 40.0-44.9, ADULT SNOMED Code(s): 852376392 (3) GI bleed Current Visit: Yes Status: Acute Code(s): K92.2 - GASTROINTESTINAL HEMORRHAGE, UNSPECIFIED SNOMED Code(s): 48781778 (4) Hematochezia Current Visit: Yes Status: Acute Code(s): K92.1 - MELENA SNOMED Code(s): 747843902 (5) Diverticulosis large intestine w/o perforation or abscess w/bleeding Current Visit: No Status: Acute Code(s): K57.31 - DVRTCLOS OF LG INT W/O PERFORATION OR ABSCESS W BLEEDING SNOMED Code(s): 7848441930137567 (6) History of gastric bypass Current Visit: No Status: Acute Code(s): Z98.84 - BARIATRIC SURGERY STATUS SNOMED Code(s): 533284776 (7) Lower GI bleed Current Visit: No Status: Acute Code(s): K92.2 - GASTROINTESTINAL HEMORRHAGE, UNSPECIFIED SNOMED Code(s): 17672907 (8) Gastrojejunal ulcer with hemorrhage Current Visit: Yes Status: Acute Code(s): K28.4 - CHRONIC OR UNSPECIFIED GASTROJEJUNAL ULCER WITH HEMORRHAGE SNOMED Code(s): 27966590
[2021-03-12] MEDS: LEVOTHYROXINE 25 MCG TAB PO SCH (06:26)
[2021-03-12] MEDS: LEVOTHYROXINE 100 MCG TAB PO SCH (06:26)
[2021-03-12] MEDS: SUCRALFATE 1 GM TAB PO SCH ×3 (06:26→16:48)
[2021-03-12] MEDS: PANTOPRAZOLE 40 MG TABLET PO SCH ×2 (06:26→16:48)
[2021-03-12] MEDS: buPROPion XL 300 MG TAB.ER.24H PO SCH (08:44)
[2021-03-12] MEDS: hydroCHLOROthiazide 12.5 MG CAP PO SCH (08:44)
[2021-03-12] MEDS: LOSARTAN 25 MG TAB PO SCH (08:44)
[2021-03-12] MEDS: ATORVASTATIN 10 MG TAB PO SCH (08:44)
--- NOTE | 2021-03-12 12:08 | P.PN ---
Subjective Progress Note Date: 03/12/21 Principal diagnosis: Gastrojejunostomy ulcer Patient doing well today. Denies pain. No labs. She is not had a bowel movement since her procedure yesterday. Objective - Vital Signs Vital signs: Vital Signs Temp 98.5 F 03/12/21 08:00 Pulse 76 03/12/21 08:00 Resp 18 03/12/21 08:00 BP 113/66 03/12/21 08:00 Pulse Ox 96 03/12/21 08:00 Intake & Output 03/11/21 03/12/21 03/12/21 18:59 06:59 18:59 Intake Total 815 240 Balance 815 240 Weight 107.8 kg Intake: IV 575 Sodium Chloride 0.9% 1, 375 000 ml @ 75 mls/hr IV . [id number] [facility] Rx#:[id number] Oral 240 240 Other: Voiding Method Toilet # Voids 1 - Exam Abdomen: Soft, nontender, nondistended - Labs CBC & Chem 7: 03/11/21 07:52 03/11/21 07:52 Assessment and Plan (1) GI bleed Narrative/Plan: Patient doing well at this time. Continue antiacids. Monitor for bowel function today. Possible discharge later today or tomorrow. Current Visit: Yes Status: Acute Code(s): K92.2 - GASTROINTESTINAL HEMORRHAGE, UNSPECIFIED SNOMED Code(s): 00997077
[2021-03-12] MEDS: CYANOCOBALAMIN 500 MCG TAB PO SCH (20:34)
[2021-03-13] MEDS: PANTOPRAZOLE 40 MG TABLET PO SCH ×2 (06:19→15:53)
[2021-03-13] MEDS: SUCRALFATE 1 GM TAB PO SCH ×3 (06:19→15:53)
[2021-03-13] MEDS: LEVOTHYROXINE 25 MCG TAB PO SCH (06:20)
[2021-03-13] MEDS: LEVOTHYROXINE 100 MCG TAB PO SCH (06:20)
[2021-03-13] MEDS: hydroCHLOROthiazide 12.5 MG CAP PO SCH (08:11)
[2021-03-13] MEDS: buPROPion XL 300 MG TAB.ER.24H PO SCH (08:11)
[2021-03-13] MEDS: LOSARTAN 25 MG TAB PO SCH (08:11)
[2021-03-13] MEDS: ATORVASTATIN 10 MG TAB PO SCH (08:11)
--- NOTE | 2021-03-13 10:26 | P.PN ---
Subjective Progress Note Date: 03/13/21 Principal diagnosis: Gastrojejunostomy ulcer Patient doing well today. Denies pain. No labs. She is not had a bowel movement yet. Patient has been ambulating. Objective - Vital Signs Vital signs: Vital Signs Temp 98.2 F 03/13/21 08:00 Pulse 75 03/13/21 08:00 Resp 18 03/13/21 08:00 BP 166/90 03/13/21 08:00 Pulse Ox 96 03/13/21 08:00 Intake & Output 03/12/21 03/13/21 03/13/21 18:59 06:59 18:59 Intake Total 240 Balance 240 Weight 107.8 kg Intake: Oral 240 Other: Voiding Method Toilet # Voids 2 # Bowel Movements 1 - Exam Abdomen: Soft, nontender, nondistended - Labs CBC & Chem 7: 03/11/21 07:52 03/11/21 07:52 Assessment and Plan (1) GI bleed Narrative/Plan: Patient doing well at this time. No further bleeding noted. Possible discharge if nonbloody stool noted. Current Visit: Yes Status: Acute Code(s): K92.2 - GASTROINTESTINAL HEMORRHAGE, UNSPECIFIED SNOMED Code(s): 40584444
[2021-03-13 12:48] LABS: Basophils # (A) 0.1 k/uL (0-0.2); Basophils % (A) 1 %; Eosinophils # (A) 0.2 k/uL (0-0.7); Eosinophils % (A) 4 %; HCT 36.8 % (34.0-46.0); Lymphocytes # (A) 1.5 k/uL (1.0-4.8); Lymphocytes % (A) 26 %; MCH 31.8 pg (25.0-35.0); MCHC 32.5 g/dL (31.0-37.0); MCV 97.8 fL (80.0-100.0); Mean Platelet Volume 9.1; Monocytes # (A) 0.3 k/uL (0-1.0); Monocytes % (A) 5 %; Neutrophils # (A) 3.4 k/uL (1.3-7.7); Neutrophils % (A) 61 %; Platelet Count 155 k/uL (150-450); RBC 3.76 m/uL (3.80-5.40); RDW 14.4 % (11.5-15.5); WBC 5.6 k/uL (3.8-10.6)
[2021-03-13] MEDS ORDERED: SODIUM CHLORIDE 0.9% 500 ML 500 ML IV ONE (13:11)
[2021-03-13] MEDS: SODIUM CHLORIDE 0.9% 1,000 ML IV SCH ×2 (13:13→16:21)
[2021-03-13 16:19] LABS: Basophils % (A) 0 %; Eosinophils # (A) 0.1 k/uL (0-0.7); Eosinophils % (A) 1 %; HCT 30.5 % (34.0-46.0); Lymphocytes # (A) 0.8 k/uL (1.0-4.8); Lymphocytes % (A) 10 %; MCH 31.8 pg (25.0-35.0); MCHC 32.5 g/dL (31.0-37.0); MCV 98.1 fL (80.0-100.0); Mean Platelet Volume 10.2; Monocytes # (A) 0.3 k/uL (0-1.0); Monocytes % (A) 3 %; Neutrophils # (A) 7.3 k/uL (1.3-7.7); Neutrophils % (A) 85 %; Platelet Count 150 k/uL (150-450); RDW 14.3 % (11.5-15.5); WBC 8.6 k/uL (3.8-10.6)
[2021-03-13 16:36] LABS: HGB 9.9 gm/dL (11.4-16.0)
[2021-03-13] MEDS: PANTOPRAZOLE 40 MG/10 ML VIAL IVP SCH (20:28)
[2021-03-13] MEDS: CYANOCOBALAMIN 500 MCG TAB PO SCH (20:29)
[2021-03-13 22:25] LABS: Basophils % (A) 1 %; Eosinophils # (A) 0.1 k/uL (0-0.7); Eosinophils % (A) 2 %; HCT 26.7 % (34.0-46.0); HGB 8.8 gm/dL (11.4-16.0); Lymphocytes # (A) 1.6 k/uL (1.0-4.8); Lymphocytes % (A) 23 %; MCH 32.3 pg (25.0-35.0); MCHC 32.9 g/dL (31.0-37.0); Mean Platelet Volume 9.4; Monocytes # (A) 0.4 k/uL (0-1.0); Monocytes % (A) 5 %; Neutrophils # (A) 4.7 k/uL (1.3-7.7); Neutrophils % (A) 67 %; Platelet Count 144 k/uL (150-450); RBC 2.72 m/uL (3.80-5.40); RDW 14.3 % (11.5-15.5)
[2021-03-14] MEDS: SODIUM CHLORIDE 0.9% 1,000 ML IV SCH ×3 (04:19→21:48)
[2021-03-14 06:21] LABS: Basophils # (A) 0.1 k/uL (0-0.2); Basophils % (A) 1 %; Eosinophils # (A) 0.2 k/uL (0-0.7); Eosinophils % (A) 3 %; HGB 8.5 gm/dL (11.4-16.0); Lymphocytes # (A) 1.5 k/uL (1.0-4.8); Lymphocytes % (A) 28 %; MCH 32.1 pg (25.0-35.0); MCHC 32.8 g/dL (31.0-37.0); Mean Platelet Volume 9.4; Monocytes # (A) 0.3 k/uL (0-1.0); Monocytes % (A) 6 %; Neutrophils # (A) 3.2 k/uL (1.3-7.7); Neutrophils % (A) 60 %; Platelet Count 135 k/uL (150-450); RBC 2.66 m/uL (3.80-5.40); RDW 14.6 % (11.5-15.5); WBC 5.3 k/uL (3.8-10.6)
[2021-03-14] MEDS: PANTOPRAZOLE 40 MG/10 ML VIAL IVP SCH ×2 (08:56→21:48)
--- NOTE | 2021-03-14 09:05 | P.PN ---
Subjective Progress Note Date: 03/14/21 CHIEF COMPLAINT: Gastrointestinal bleed HISTORY OF PRESENT ILLNESS: The patient is a 65-year-old female status post upper and lower endoscopy. Over the weekend, yesterday patient had multiple bloody bowel movements. She reports epigastric discomfort prior to her bloody bowel movements. She is nothing by mouth this morning. ROS: No reports of nausea and vomiting. No fevers or chills. No new chest pain. No productive sputum PHYSICAL EXAM: VITAL SIGNS: Reviewed CONSTITUTIONAL: Well developed and in no acute distress. EYES: Conjuctivae without sclera icterus. Extraocular movements grossly intact. HEAD, EARS, NOSE, THROAT: Moist buccal mucosa. Head is atraumatic, normocephalic. Hears conversational speech. No nasal drainage. NECK: No gross thyroidomegaly. No jugular venous distention. RESPIRATORY: Non-labored respirations and equal bilateral excursions. CARDIOVASCULAR: Palpable 2+ radial pulses. Regular rate. Regular rhythm. ABDOMEN: Protuberant. No peritonitis. MUSCULOSKELETAL: No gross deformity of the lower extremities noted. No clubbing. No cyanosis. SKIN: Good skin turgor. Well perfused. NEUROLOGIC: Cranial nerves II through XII grossly intact. No focal or lateralizing signs. PSYCH: Appropriate affect. Alert and oriented to person, place and time. CLINICAL LABS: White blood cell count normal 4.1. Hemoglobin dropped from 13.0- 11.6, now 8.5. ASSESSMENT: 1. Acute blood loss anemia 2. Gastrointestinal bleeding 3. Gastrojejunal ulcer PLAN: 1. I personally discussed case with radiologist, tagged RBC scan recommended for best sensitivity specificity 2. Localization of bleeding needed prior to additional surgical intervention. 3. Patient is at risk for bleeding at the excluded portion of the stomach including duodenum which localization study should help Objective - Vital Signs Vital signs: Vital Signs Temp 97.8 F 03/14/21 08:00 Pulse 63 03/14/21 08:00 Resp 18 03/14/21 08:00 BP 104/47 03/14/21 08:00 Pulse Ox 99 03/14/21 08:00 Intake & Output 03/13/21 03/14/21 03/14/21 18:59 06:59 18:59 Intake Total 120 10 Balance 120 10 Weight 108.5 kg Intake: IV 10 Invasive Line 3 10 Oral 120 Other: Voiding Method Toilet Bedpan # Voids 1 1 # Bowel Movements 1 - Labs CBC & Chem 7: 03/14/21 05:55 03/11/21 07:52 Labs: Abnormal Lab Results - Last 24 Hours (Table) 03/13/21 03/13/21 03/13/21 Range/Units 12:35 16:04 21:41 RBC 3.76 L 3.10 L 2.72 L (3.80-5.40) m/uL Hgb 9.9 L D 8.8 L (11.4-16.0) gm/dL Hct 30.5 L 26.7 L (34.0-46.0) % Plt Count 144 L (150-450) k/uL Lymphocytes # 0.8 L (1.0-4.8) k/uL 03/14/21 Range/Units 05:55 RBC 2.66 L (3.80-5.40) m/uL Hgb 8.5 L (11.4-16.0) gm/dL Hct 26.0 L (34.0-46.0) % Plt Count 135 L (150-450) k/uL Lymphocytes # (1.0-4.8) k/uL Assessment and Plan (1) Morbid obesity due to excess calories Current Visit: Yes Status: Acute Code(s): E66.01 - MORBID (SEVERE) OBESITY DUE TO EXCESS CALORIES SNOMED Code(s): 257833566 (2) Body mass index (BMI) of 40.1 to 44.9 in adult Current Visit: Yes Status: Acute Code(s): Z68.41 - BODY MASS INDEX [BMI] 40.0-44.9, ADULT SNOMED Code(s): 322617937 (3) GI bleed Current Visit: Yes Status: Acute Code(s): K92.2 - GASTROINTESTINAL HEMORRHAGE, UNSPECIFIED SNOMED Code(s): 99137834 (4) Hematochezia Current Visit: Yes Status: Acute Code(s): K92.1 - MELENA SNOMED Code(s): 937689184 (5) Diverticulosis large intestine w/o perforation or abscess w/bleeding Current Visit: No Status: Acute Code(s): K57.31 - DVRTCLOS OF LG INT W/O PERFORATION OR ABSCESS W BLEEDING SNOMED Code(s): 8604053543666480 (6) History of gastric bypass Current Visit: No Status: Acute Code(s): Z98.84 - BARIATRIC SURGERY STATUS SNOMED Code(s): 176840646 (7) Lower GI bleed Current Visit: No Status: Acute Code(s): K92.2 - GASTROINTESTINAL HEMORRHAGE, UNSPECIFIED SNOMED Code(s): 69923557 (8) Gastrojejunal ulcer with hemorrhage Current Visit: Yes Status: Acute Code(s): K28.4 - CHRONIC OR UNSPECIFIED GASTROJEJUNAL ULCER WITH HEMORRHAGE SNOMED Code(s): 94596135 (9) Anemia associated with acute blood loss Current Visit: No Status: Acute Code(s): D62 - ACUTE POSTHEMORRHAGIC ANEMIA SNOMED Code(s): 935370884
--- NOTE | 2021-03-14 14:00 | NM ---
EXAMINATION TYPE: NM GI bleeding DATE OF EXAM: 03/14/2021 HISTORY: 65-year-old female GI bleed COMPARISON: Correlation CT 07/14/2020 Technique: Following administration of 3 ml PYP 26.3 mCi Tc 99m Sodium Pertechnetate. Immediate image s post injection carried up to 2 hours. FINDINGS: Normal tracer activity is seen in the blood pool of the abdominal aorta, common iliac arteries, femor al arteries, liver, and spleen on all of the interval images. Later images show accumulation of trace r in the urinary bladder, which is consistent with excreted tracer. No abnormal tracer uptake is pres ent outside the blood pool that would be consistent with an active GI bleed. IMPRESSION: Negative examination. No evidence of active gastrointestinal bleeding during a 2 hour observation per iod.
[2021-03-14] MEDS: LEVOTHYROXINE 25 MCG TAB PO SCH (15:52)
[2021-03-14] MEDS: SUCRALFATE 1 GM TAB PO SCH ×2 (15:52→16:49)
[2021-03-14] MEDS: LEVOTHYROXINE 100 MCG TAB PO SCH (15:52)
[2021-03-14] MEDS: buPROPion XL 300 MG TAB.ER.24H PO SCH (15:53)
[2021-03-14] MEDS: ATORVASTATIN 10 MG TAB PO SCH (15:53)
[2021-03-14] MEDS: hydroCHLOROthiazide 12.5 MG CAP PO SCH (15:53)
[2021-03-14] MEDS: LOSARTAN 25 MG TAB PO SCH (15:53)
[2021-03-14] MEDS: CYANOCOBALAMIN 500 MCG TAB PO SCH (21:48)
[2021-03-15] MEDS: SODIUM CHLORIDE 0.9% 1,000 ML IV SCH ×3 (04:38→21:06)
[2021-03-15 05:22] LABS: Basophils % (A) 1 %; Eosinophils # (A) 0.3 k/uL (0-0.7); Eosinophils % (A) 6 %; HCT 25.9 % (34.0-46.0); HGB 8.1 gm/dL (11.4-16.0); Lymphocytes # (A) 1.5 k/uL (1.0-4.8); Lymphocytes % (A) 33 %; MCH 30.9 pg (25.0-35.0); MCHC 31.5 g/dL (31.0-37.0); MCV 98.2 fL (80.0-100.0); Mean Platelet Volume 9.6; Monocytes # (A) 0.3 k/uL (0-1.0); Monocytes % (A) 6 %; Neutrophils # (A) 2.4 k/uL (1.3-7.7); Neutrophils % (A) 53 %; Platelet Count 126 k/uL (150-450); RBC 2.64 m/uL (3.80-5.40); RDW 14.5 % (11.5-15.5); WBC 4.6 k/uL (3.8-10.6)
[2021-03-15 05:40] LABS: Calcium 7.3 mg/dL (8.4-10.2)
[2021-03-15] MEDS: SUCRALFATE 1 GM TAB PO SCH ×3 (06:53→17:20)
[2021-03-15] MEDS: LEVOTHYROXINE 25 MCG TAB PO SCH (06:53)
[2021-03-15] MEDS: LEVOTHYROXINE 100 MCG TAB PO SCH (06:54)
[2021-03-15] MEDS: hydroCHLOROthiazide 12.5 MG CAP PO SCH (10:15)
[2021-03-15] MEDS: LOSARTAN 25 MG TAB PO SCH (10:15)
[2021-03-15] MEDS: PANTOPRAZOLE 40 MG/10 ML VIAL IVP SCH ×2 (10:18→21:05)
[2021-03-15] MEDS: ATORVASTATIN 10 MG TAB PO SCH (10:18)
[2021-03-15] MEDS: buPROPion XL 300 MG TAB.ER.24H PO SCH (10:18)
[2021-03-15 11:57] LABS: Basophils % (A) 1 %; Eosinophils # (A) 0.2 k/uL (0-0.7); Eosinophils % (A) 5 %; HGB 8.7 gm/dL (11.4-16.0); Lymphocytes # (A) 1.2 k/uL (1.0-4.8); Lymphocytes % (A) 26 %; MCH 31.5 pg (25.0-35.0); MCHC 32.1 g/dL (31.0-37.0); MCV 98.2 fL (80.0-100.0); Mean Platelet Volume 10.9; Monocytes # (A) 0.2 k/uL (0-1.0); Monocytes % (A) 5 %; Neutrophils # (A) 2.9 k/uL (1.3-7.7); Neutrophils % (A) 63 %; Platelet Count 134 k/uL (150-450); RBC 2.75 m/uL (3.80-5.40); RDW 14.6 % (11.5-15.5); WBC 4.6 k/uL (3.8-10.6)
[2021-03-15] MEDS ORDERED: SODIUM FERRIC GLUCONAT-SUCROSE 125 MG in SODIUM CHLORIDE 0.9% 100 ML IVPB ONE (12:00)
--- NOTE | 2021-03-15 13:43 | P.PN ---
Subjective Progress Note Date: 03/15/21 CHIEF COMPLAINT: Gastrointestinal bleed HISTORY OF PRESENT ILLNESS: The patient is a 65-year-old female admitted as transfer from 03/09/2021 for gastrointestinal bleeding. Patient had both an upper and lower endoscopy 03/11/2021 with features of severe sidhu diverticulosis including gastrojejunal ulcer. Hemoglobin was 13.0. Patient continued to have intermittent bleeding over the weekend. Hemoglobin dropped to 8.5 yesterday. She had a tagged RBC scan yesterday which was negative. Patient has recurrent gastrointestinal bleeding with multiple bloody bowel movements today. Hemoglobin dropped down to 8.1 today. She has been on Protonix 40 mg twice a day including Carafate to treat her gastrojejunal ulcer. Patient still reports intermittent epigastric abdominal pain which occurs prior to her bloody bowel movements. ROS: No reports of nausea and vomiting. No fevers or chills. No new chest pain. No productive sputum PHYSICAL EXAM: VITAL SIGNS: Reviewed CONSTITUTIONAL: Well developed and in no acute distress. EYES: Conjuctivae without sclera icterus. Extraocular movements grossly intact. HEAD, EARS, NOSE, THROAT: Moist buccal mucosa. Head is atraumatic, normocephalic. Hears conversational speech. No nasal drainage. NECK: No gross thyroidomegaly. No jugular venous distention. RESPIRATORY: Non-labored respirations and equal bilateral excursions. CARDIOVASCULAR: Palpable 2+ radial pulses. Regular rate. Regular rhythm. ABDOMEN: Protuberant. No peritonitis. MUSCULOSKELETAL: No gross deformity of the lower extremities noted. No clubbing. No cyanosis. SKIN: Good skin turgor. Well perfused. NEUROLOGIC: Cranial nerves II through XII grossly intact. No focal or lateralizing signs. PSYCH: Appropriate affect. Alert and oriented to person, place and time. CLINICAL LABS: White blood cell count normal 4.1. Hemoglobin dropped from 13.0- 11.6, now 8.1. STUDIES: Tagged RBC scan without localization of bleeding. ASSESSMENT: 1. Acute blood loss anemia 2. Gastrointestinal bleeding 3. Gastrojejunal ulcer PLAN: 1. Patient continues to bleed despite negative localization studies. Recommendations for push enteroscopy including interventional radiology needed. Services not available at her institution necessitating transfer. 2. She reports symptomatic anemia with dizziness. We'll start iron infusions. 3. I spoke to [facility] Dr. Jimmy Mcguire hospitalist for need for transfer for gastroenterology not currently available at this institution including push enteroscopy and interventional radiology for GI bleeding not available at this institution. Objective - Vital Signs Vital signs: Vital Signs Temp 98.8 F 03/15/21 12:00 Pulse 96 03/15/21 12:00 Resp 18 03/15/21 12:00 BP 131/72 03/15/21 12:00 Pulse Ox 97 03/15/21 12:00 Intake & Output 03/14/21 03/15/21 03/15/21 18:59 06:59 18:59 Intake Total 240 Balance 240 Weight 110.6 kg Intake: Oral 240 Other: Voiding Method Toilet Toilet Toilet # Voids 1 1 3 # Bowel Movements 1 2 - Labs CBC & Chem 7: 03/15/21 11:45 03/15/21 05:03 Labs: Abnormal Lab Results - Last 24 Hours (Table) 03/15/21 03/15/21 03/15/21 Range/Units 05:03 05:03 11:45 RBC 2.64 L 2.75 L (3.80-5.40) m/uL Hgb 8.1 L 8.7 L (11.4-16.0) gm/dL Hct 25.9 L 27.0 L (34.0-46.0) % Plt Count 126 L 134 L (150-450) k/uL Chloride 111 H (98-107) mmol/L BUN 20 H (7-17) mg/dL Creatinine 1.11 H (0.52-1.04) mg/dL Glucose 110 H (74-99) mg/dL Calcium 7.3 L (8.4-10.2) mg/dL Assessment and Plan (1) Morbid obesity due to excess calories Current Visit: Yes Status: Acute Code(s): E66.01 - MORBID (SEVERE) OBESITY DUE TO EXCESS CALORIES SNOMED Code(s): 995893129 (2) Body mass index (BMI) of 40.1 to 44.9 in adult Current Visit: Yes Status: Acute Code(s): Z68.41 - BODY MASS INDEX [BMI] 40.0-44.9, ADULT SNOMED Code(s): 967427137 (3) GI bleed Current Visit: Yes Status: Acute Code(s): K92.2 - GASTROINTESTINAL HEMORRHAGE, UNSPECIFIED SNOMED Code(s): 36007395 (4) Hematochezia Current Visit: Yes Status: Acute Code(s): K92.1 - MELENA SNOMED Code(s): 541908644 (5) Diverticulosis large intestine w/o perforation or abscess w/bleeding Current Visit: No Status: Acute Code(s): K57.31 - DVRTCLOS OF LG INT W/O PERFORATION OR ABSCESS W BLEEDING SNOMED Code(s): 7078544009259817 (6) History of gastric bypass Current Visit: No Status: Acute Code(s): Z98.84 - BARIATRIC SURGERY STATUS SNOMED Code(s): 212892681 (7) Lower GI bleed Current Visit: No Status: Acute Code(s): K92.2 - GASTROINTESTINAL HEMORRHAGE, UNSPECIFIED SNOMED Code(s): 09311373 (8) Gastrojejunal ulcer with hemorrhage Current Visit: Yes Status: Acute Code(s): K28.4 - CHRONIC OR UNSPECIFIED GASTROJEJUNAL ULCER WITH HEMORRHAGE SNOMED Code(s): 86235395 (9) Anemia associated with acute blood loss Current Visit: No Status: Acute Code(s): D62 - ACUTE POSTHEMORRHAGIC ANEMIA SNOMED Code(s): 523011184
--- NOTE | 2021-03-15 14:55 | P.DS ---
Providers Date of admission: 03/11/21 15:05 Expected date of discharge: 03/15/21 Attending physician: Qian Murray Primary care physician: Stephy Harris Hospital Course: Discharge diagnosis 1. Acute blood loss anemia 2. Gastrointestinal bleeding 3. Gastrojejunal ulcer Hospital course The patient is a 65-year-old female admitted as transfer from 03/09/2021 for gastrointestinal bleeding. Patient had both an upper and lower endoscopy 03/11/2021 with features of severe sidhu diverticulosis including gastrojejunal ulcer. Hemoglobin was 13.0. Patient continued to have intermittent bleeding over the weekend. Hemoglobin dropped to 8.5 yesterday. She had a tagged RBC scan yesterday which was negative. Patient has recurrent gastrointestinal bleeding with multiple bloody bowel movements today. Hemoglobin dropped down to 8.1 today. She has been on Protonix 40 mg twice a day including Carafate to treat her gastrojejunal ulcer. Patient still reports intermittent epigastric abdominal pain which occurs prior to her bloody bowel movements. Patient continues to bleed despite negative localization studies. Recommendations for push enteroscopy including interventional radiology needed. Services not available at her institution necessitating transfer. Dr. Murray spoke with the [facility] transfer team. They have accepted the patient. However she is currently on a waiting list to be transferred to the hospital. Patient requires a transfer to tertiary care center because gastroenterology is not currently available at this institution including push enteroscopy and interventional radiology for GI bleeding not available at this institution. Patient is also receiving IV iron for symptomatic anemia with dizziness. Patient is stable for transfer. Physician Distributor Operator note has been reviewed by physician. Signing provider agrees with the documented findings, assessment, and plan of care. Patient Condition at Discharge: Stable Plan - Discharge Summary Discharge Rx Participant: No New Discharge Prescriptions: New Omeprazole [PriLOSEC] 40 mg PO DAILY #90 cap Sucralfate [Carafate] 1 gm PO BID #60 tablet Continue buPROPion XL [Wellbutrin XL] 300 mg PO DAILY Levothyroxine Sodium [Synthroid] 12.5 mcg PO DAILY Levothyroxine Sodium [Synthroid] 200 mcg PO DAILY Cyanocobalamin [Vitamin B-12] 500 mcg PO HS Multivitamins, Thera [Multivitamin (formulary)] 1 tab PO HS Zinc 50 mg PO HS Losartan Potassium [Cozaar] 25 mg PO DAILY Atorvastatin [Lipitor] 10 mg PO DAILY Vitamin A [Vitamin A (8,000 Units = 2,400 MCG)] 2,400 mcg PO HS Cholecalciferol [Vitamin D3 (25 Mcg = 1000 Iu)] 25 mcg PO HS Hydrochlorothiazide [hydroCHLOROthiazide] 12.5 mg PO DAILY Discharge Medication List buPROPion XL [Wellbutrin XL] 300 mg PO DAILY 07/29/18 [History] Levothyroxine Sodium [Synthroid] 12.5 mcg PO DAILY 04/28/20 [History] Levothyroxine Sodium [Synthroid] 200 mcg PO DAILY 04/28/20 [History] Cyanocobalamin [Vitamin B-12] 500 mcg PO HS 06/14/20 [History] Multivitamins, Thera [Multivitamin (formulary)] 1 tab PO HS 06/14/20 [History] Atorvastatin [Lipitor] 10 mg PO DAILY 03/09/21 [History] Cholecalciferol [Vitamin D3 (25 Mcg = 1000 Iu)] 25 mcg PO HS 03/09/21 [History] Hydrochlorothiazide [hydroCHLOROthiazide] 12.5 mg PO DAILY 03/09/21 [History] Losartan Potassium [Cozaar] 25 mg PO DAILY 03/09/21 [History] Vitamin A [Vitamin A (8,000 Units = 2,400 MCG)] 2,400 mcg PO HS 03/09/21 [History] Zinc 50 mg PO HS 03/09/21 [History] Omeprazole [PriLOSEC] 40 mg PO DAILY #90 cap 03/11/21 [Rx] Sucralfate [Carafate] 1 gm PO BID #60 tablet 03/11/21 [Rx] Follow up Appointment(s)/Referral(s): Stephy Harris MD [Primary Care Provider] [facility] [place] [facility] - 03/23/21 Patient Instructions/Handouts: Peptic Ulcer (DC), Diet for Stomach Ulcers and Gastritis (ED)
[2021-03-15] MEDS: CYANOCOBALAMIN 500 MCG TAB PO SCH (21:06)
[2021-03-16 06:02] LABS: HCT 26.8 % (34.0-46.0); HGB 8.7 gm/dL (11.4-16.0); Hypochromasia Slight; MCH 31.8 pg (25.0-35.0); MCHC 32.4 g/dL (31.0-37.0); MCV 98.1 fL (80.0-100.0); Mean Platelet Volume 9.1; Platelet Count 152 k/uL (150-450); RBC 2.73 m/uL (3.80-5.40); RDW 14.5 % (11.5-15.5); WBC 4.9 k/uL (3.8-10.6)
[2021-03-16] MEDS: SODIUM CHLORIDE 0.9% 1,000 ML IV SCH ×3 (06:25→18:53)
[2021-03-16] MEDS: LEVOTHYROXINE 25 MCG TAB PO SCH (07:20)
[2021-03-16] MEDS: SUCRALFATE 1 GM TAB PO SCH ×3 (07:20→17:36)
[2021-03-16] MEDS: LEVOTHYROXINE 100 MCG TAB PO SCH (07:20)
[2021-03-16] MEDS: buPROPion XL 300 MG TAB.ER.24H PO SCH (10:09)
[2021-03-16] MEDS: ATORVASTATIN 10 MG TAB PO SCH (10:09)
[2021-03-16] MEDS: PANTOPRAZOLE 40 MG/10 ML VIAL IVP SCH ×2 (10:09→21:12)
[2021-03-16] MEDS: LOSARTAN 25 MG TAB PO SCH (10:09)
[2021-03-16] MEDS: hydroCHLOROthiazide 12.5 MG CAP PO SCH (10:10)
--- NOTE | 2021-03-16 11:07 | P.PN ---
Subjective Progress Note Date: 03/16/21 CHIEF COMPLAINT: Gastrointestinal bleed HISTORY OF PRESENT ILLNESS: The patient is a 65-year-old female admitted as transfer from 03/09/2021 for gastrointestinal bleeding. She had both an upper and lower endoscopy 03/11/2021 with features of severe sidhu diverticulosis including gastrojejunal ulcer and placed on Protonix 40 mg BID and Carafate. Hemoglobin was 13.0 on admission. She continued to have large GI bleed despite negative localization studies. Hgb went down to 8.1. She received iron infusion yesterday. She is on clear liquid diet. She reports dark stools however with form. She is pending transfer to [facility] due to persistent bleeding and need for interventional radiology localization studies and push enteroscopy with gastroenterology unavailable at this institution. ROS: No reports of nausea and vomiting. No fevers or chills. No new chest pain. No productive sputum PHYSICAL EXAM: VITAL SIGNS: Reviewed CONSTITUTIONAL: Well developed and in no acute distress. EYES: Conjuctivae without sclera icterus. Extraocular movements grossly intact. HEAD, EARS, NOSE, THROAT: Moist buccal mucosa. Head is atraumatic, normocephalic. Hears conversational speech. No nasal drainage. NECK: No gross thyroidomegaly. No jugular venous distention. RESPIRATORY: Non-labored respirations and equal bilateral excursions. CARDIOVASCULAR: Palpable 2+ radial pulses. ABDOMEN: Protuberant. No peritonitis. MUSCULOSKELETAL: No gross deformity of the lower extremities noted. No cl ubbing. No cyanosis. SKIN: Good skin turgor. Well perfused. NEUROLOGIC: Cranial nerves II through XII grossly intact. No focal or lateralizing signs. PSYCH: Appropriate affect. Alert and oriented to person, place and time. CLINICAL LABS: Hemoglobin dropped from 13.0 on admission. Stable at 8.7 ASSESSMENT: 1. Acute blood loss anemia 2. Gastrointestinal bleeding 3. Gastrojejunal ulcer PLAN: 1. Pending transfer to tertiary care center for gastroenterology and interventional radiology GI bleed. 2. Iron infusions three doses. Objective - Vital Signs Vital signs: Vital Signs Temp 98.3 F 03/16/21 08:12 Pulse 68 03/16/21 08:12 Resp 16 03/16/21 08:12 BP 122/74 03/16/21 08:12 Pulse Ox 98 12/15/21 08:12 Intake & Output 03/15/21 03/16/21 03/16/21 18:59 06:59 18:59 Intake Total 660 10 440 Output Total 1850 1450 Balance -1190 -1440 440 Weight 104.5 kg Intake: IV 10 260 Invasive Line 3 10 Sodium Chloride 0.9% 1, 260 000 ml @ 130 mls/hr IV . Q7H42M [facility] Rx#:[id number] Oral 660 180 Output: Urine 1850 1450 Other: Voiding Method Toilet Toilet Toilet # Voids 3 1 # Bowel Movements 2 - Labs CBC & Chem 7: 03/16/21 05:38 03/15/21 05:03 Labs: Abnormal Lab Results - Last 24 Hours (Table) 03/15/21 03/16/21 Range/Units 11:45 05:38 RBC 2.75 L 2.73 L (3.80-5.40) m/uL Hgb 8.7 L 8.7 L (11.4-16.0) gm/dL Hct 27.0 L 26.8 L (34.0-46.0) % Plt Count 134 L (150-450) k/uL Assessment and Plan (1) Morbid obesity due to excess calories Current Visit: Yes Status: Acute Code(s): E66.01 - MORBID (SEVERE) OBESITY DUE TO EXCESS CALORIES SNOMED Code(s): 786509057 (2) Body mass index (BMI) of 40.1 to 44.9 in adult Current Visit: Yes Status: Acute Code(s): Z68.41 - BODY MASS INDEX [BMI] 40.0-44.9, ADULT SNOMED Code(s): 038716420 (3) GI bleed Current Visit: Yes Status: Acute Code(s): K92.2 - GASTROINTESTINAL HEMORRHAGE, UNSPECIFIED SNOMED Code(s): 32596630 (4) Hematochezia Current Visit: Yes Status: Acute Code(s): K92.1 - MELENA SNOMED Code(s): 557717844 (5) Diverticulosis large intestine w/o perforation or abscess w/bleeding Current Visit: No Status: Acute Code(s): K57.31 - DVRTCLOS OF LG INT W/O PERFORATION OR ABSCESS W BLEEDING SNOMED Code(s): 4136957306074215 (6) History of gastric bypass Current Visit: No Status: Acute Code(s): Z98.84 - BARIATRIC SURGERY STATUS SNOMED Code(s): 642363926 (7) Lower GI bleed Current Visit: No Status: Acute Code(s): K92.2 - GASTROINTESTINAL HEMORRHAGE, UNSPECIFIED SNOMED Code(s): 32677386 (8) Gastrojejunal ulcer with hemorrhage Current Visit: Yes Status: Acute Code(s): K28.4 - CHRONIC OR UNSPECIFIED GASTROJEJUNAL ULCER WITH HEMORRHAGE SNOMED Code(s): 72846118 (9) Anemia associated with acute blood loss Current Visit: No Status: Acute Code(s): D62 - ACUTE POSTHEMORRHAGIC ANEMIA SNOMED Code(s): 633947655
[2021-03-16] MEDS: SODIUM FERRIC GLUCONAT-SUCROSE 125 MG in SODIUM CHLORIDE 0.9% 100 ML IVPB SCH (12:01)
[2021-03-16] MEDS: CYANOCOBALAMIN 500 MCG TAB PO SCH (21:12)
[2021-03-17] MEDS: SODIUM CHLORIDE 0.9% 1,000 ML IV SCH ×3 (05:14→20:28)
[2021-03-17] MEDS: LEVOTHYROXINE 100 MCG TAB PO SCH (06:43)
[2021-03-17] MEDS: SUCRALFATE 1 GM TAB PO SCH ×3 (06:43→17:30)
[2021-03-17] MEDS: LEVOTHYROXINE 25 MCG TAB PO SCH (06:43)
[2021-03-17] MEDS: hydroCHLOROthiazide 12.5 MG CAP PO SCH (08:54)
[2021-03-17] MEDS: buPROPion XL 300 MG TAB.ER.24H PO SCH (08:54)
[2021-03-17] MEDS: LOSARTAN 25 MG TAB PO SCH (08:54)
[2021-03-17] MEDS: ATORVASTATIN 10 MG TAB PO SCH (08:54)
[2021-03-17] MEDS: PANTOPRAZOLE 40 MG/10 ML VIAL IVP SCH ×2 (08:54→20:28)
[2021-03-17 09:15] LABS: Calcium 7.8 mg/dL (8.4-10.2); Potassium 3.6 mmol/L (3.5-5.1)
[2021-03-17 09:22] LABS: HCT 26.2 % (34.0-46.0); HGB 8.4 gm/dL (11.4-16.0); Hypochromasia Slight; MCH 31.4 pg (25.0-35.0); MCV 98.3 fL (80.0-100.0); Mean Platelet Volume 9.5; Platelet Count 154 k/uL (150-450); RBC 2.66 m/uL (3.80-5.40); RDW 14.8 % (11.5-15.5); WBC 3.7 k/uL (3.8-10.6)
[2021-03-17] MEDS: SODIUM FERRIC GLUCONAT-SUCROSE 125 MG in SODIUM CHLORIDE 0.9% 100 ML IVPB SCH (10:40)
[2021-03-17 13:43] VITALS: BMI 40.6
--- NOTE | 2021-03-17 14:53 | P.PN ---
Subjective Progress Note Date: 03/17/21 CHIEF COMPLAINT: GI bleed HISTORY OF PRESENT ILLNESS: Patient continues to have GI bleed. Patient had an other maroon liquidy stool this morning. She feels dizzy and lightheaded especially with standing. She does have epigastric tenderness. Vitals are stable. Hemoglobin stable at 8.4. She's currently on a clear liquid diet. She is awaiting a bed at [facility]. Afebrile. WBC 3.7 hemoglobin 8.4 platelets 154 creatinine 1.12 patient did receive her last dose of IV iron today. PHYSICAL EXAM: VITAL SIGNS: Reviewed GENERAL: Well-developed in no acute distress. HEENT: No sclera icterus. Extraocular movements grossly intact. Moist buccal mucosa. Head is atraumatic, normocephalic. Hears conversational speech. No nasal drainage. NECK: Supple without lymphadenopathy. CHEST: Non-labored respirations and equal bilateral excursions. CARDIOVASCULAR: Palpable 2+ radial pulses. ABDOMEN: Soft. Nondistended. Epigastric tenderness MUSCULOSKELETAL: No clubbing or cyanosis. NEUROLOGIC: No focal or lateralizing signs. Cranial nerves II through XII grossly intact. PSYCH: Appropriate affect. Alert and oriented to person, place and time. SKIN: Well perfused. Good skin turgor. ASSESSMENT: 1. Acute blood loss anemia 2. Gastrointestinal bleeding 3. Gastrojejunal ulcer 4. Symptomatic anemia PLAN: -She is pending transfer to [facility] due to persistent bleeding and need for interventional radiology localization studies and push enteroscopy -Patient will receive 1 unit of packed red blood cells due to symptomatic anemia -We'll repeat tagged RBC scan due to patient's continuing to have bleeding -Continue to monitor hemoglobin -Continue IV fluids -Hold hydrochlorothiazide due to mildly elevated creatinine and acute kidney injury Physician Animal Caretaker note has been reviewed by physician. Signing provider agrees with the documented findings, assessment, and plan of care. Objective - Vital Signs Vital signs: Vital Signs Temp 98.3 F 03/17/21 12:00 Pulse 69 03/17/21 12:00 Resp 17 03/17/21 12:00 BP 105/67 03/17/21 12:00 Pulse Ox 99 03/17/21 12:00 Intake & Output 03/16/21 03/17/21 03/17/21 18:59 06:59 18:59 Intake Total 1820 30 480 Output Total 550 Balance 1820 30 -70 Weight 107.4 kg 107.4 kg Intake: IV 260 30 Invasive Line 4 20 Invasive Line 5 10 Sodium Chloride 0.9% 1, 260 000 ml @ 130 mls/hr IV . Q7H42M [facility] Rx#:[id number] Oral 1560 480 Output: Urine 550 Other: Voiding Method Toilet Toilet External Catheter # Voids 1 # Bowel Movements 1 - Labs CBC & Chem 7: 03/17/21 08:25 03/17/21 08:25 Labs: Abnormal Lab Results - Last 24 Hours (Table) 03/17/21 03/17/21 Range/Units 08:25 08:25 WBC 3.7 L (3.8-10.6) k/uL RBC 2.66 L (3.80-5.40) m/uL Hgb 8.4 L (11.4-16.0) gm/dL Hct 26.2 L (34.0-46.0) % Chloride 108 H (98-107) mmol/L Creatinine 1.12 H (0.52-1.04) mg/dL Glucose 177 H (74-99) mg/dL Calcium 7.8 L (8.4-10.2) mg/dL
--- NOTE | 2021-03-17 17:12 | NM ---
EXAMINATION TYPE: NM GI bleeding DATE OF EXAM: 03/17/2021 HISTORY: GI bleed COMPARISON: NONE Following administration of 3 ml PYP 26.6 mCi Tc 99m Sodium Pertechnete. Immediate images post inject ion. FINDINGS: Normal tracer activity is seen in the blood pool of the abdominal aorta, common iliac arteries, femor al arteries, liver, and spleen on all of the interval images. Later images show accumulation of trace r in the urinary bladder, which is consistent with excreted tracer. No abnormal tracer uptake is pres ent outside the blood pool that would be consistent with an active GI bleed. IMPRESSION: Negative examination. No evidence of active gastrointestinal bleeding during the initial 1 hr observa tion period.
[2021-03-17] MEDS: CYANOCOBALAMIN 500 MCG TAB PO SCH (20:28)
[2021-03-18] MEDS: SODIUM CHLORIDE 0.9% 1,000 ML IV SCH ×3 (05:33→17:14)
[2021-03-18] MEDS: SUCRALFATE 1 GM TAB PO SCH ×3 (07:06→17:13)
[2021-03-18] MEDS: LEVOTHYROXINE 100 MCG TAB PO SCH (07:06)
[2021-03-18] MEDS: LEVOTHYROXINE 25 MCG TAB PO SCH (07:06)
[2021-03-18] MEDS: buPROPion XL 300 MG TAB.ER.24H PO SCH (07:56)
[2021-03-18] MEDS: LOSARTAN 25 MG TAB PO SCH (07:56)
[2021-03-18] MEDS: ATORVASTATIN 10 MG TAB PO SCH (07:56)
[2021-03-18] MEDS: PANTOPRAZOLE 40 MG/10 ML VIAL IVP SCH ×2 (07:56→20:54)
[2021-03-18 08:53] LABS: HCT 31.9 % (34.0-46.0); HGB 10.5 gm/dL (11.4-16.0); Hypochromasia Slight; MCH 31.9 pg (25.0-35.0); MCV 96.7 fL (80.0-100.0); Mean Platelet Volume 9.4; Platelet Count 170 k/uL (150-450); Poikilocytosis Slight; RDW 14.6 % (11.5-15.5); WBC 4.1 k/uL (3.8-10.6)
[2021-03-18 09:08] LABS: Calcium 8.2 mg/dL (8.4-10.2); Potassium 3.4 mmol/L (3.5-5.1)
--- NOTE | 2021-03-18 12:35 | P.PN ---
Subjective Progress Note Date: 03/18/21 CHIEF COMPLAINT: GI bleed HISTORY OF PRESENT ILLNESS: Patient being followed for GI bleed. Patient evalu ated this morning. She reported she had not had a bowel movement yet. However, after she eats her full liquids she does get the epigastric pain. She received a unit of blood yesterday and hemoglobin has increased from 8.4-10.5 patient completed the IV iron transfusions yesterday. Afebrile. Vitals are stable. Her dizziness and lightheadedness have shown improvement. Sodium 140 potassium 3.4 creatinine 1.10 repeat tagged RBC scan is negative. Patient is still awaiting transfer to [facility]. Still no beds available at this time. PHYSICAL EXAM: VITAL SIGNS: Reviewed GENERAL: Well-developed in no acute distress. HEENT: No sclera icterus. Extraocular movements grossly intact. Moist buccal mucosa. Head is atraumatic, normocephalic. Hears conversational speech. No nasal dr ainage. NECK: Supple without lymphadenopathy. CHEST: Non-labored respirations and equal bilateral excursions. CARDIOVASCULAR: Palpable 2+ radial pulses. ABDOMEN: Soft. Nondistended. Epigastric tenderness MUSCULOSKELETAL: No clubbing or cyanosis. NEUROLOGIC: No focal or lateralizing signs. Cranial nerves II through XII grossly intact. PSYCH: Appropriate affect. Alert and oriented to person, place and time. SKIN: Well perfused. Good skin turgor. ASSESSMENT: 1. Acute blood loss anemia 2. Gastrointestinal bleeding 3. Gastrojejunal ulcer 4. Symptomatic anemia 5. Acute kidney injury. PLAN: -She is pending transfer to [facility] due to persistent bleeding and need for interventional radiology localization studies and push enteroscopy -Continue monitor for signs of bleeding -Continue to monitor hemoglobin -Continue IV fluids -Continue PPI and Carafate -Hold hydrochlorothiazide due to mildly elevated creatinine and acute kidney injury -SCDs for DVT prophylaxis Physician Insurance Broker note has been reviewed by physician. Signing provider agrees with the documented findings, assessment, and plan of care. Objective - Vital Signs Vital signs: Vital Signs Temp 97.8 F 03/18/21 07:47 Pulse 67 03/18/21 11:51 Resp 16 03/18/21 11:51 BP 159/81 03/18/21 11:51 Pulse Ox 98 03/18/21 11:51 Intake & Output 1203/18/21 03/18/21 18:59 06:59 18:59 Intake Total 943 343 2393 Output Total 4881 057 7496 Balance -427 -180 -380 Weight 107.4 kg 106.9 kg Intake: IV 10 Invasive Line 6 10 Oral 598 1020 Blood Product 310 Rc As-1 Unit 310 [id number] Output: Urine 7940 817 7192 Other: Voiding Method External Catheter External Catheter External Catheter # Bowel Movements 1 - Labs CBC & Chem 7: 03/18/21 08:29 03/18/21 08:29 Labs: Abnormal Lab Results - Last 24 Hours (Table) 03/17/21 03/18/21 03/18/21 Range/Units 13:38 08:29 08:29 RBC 3.30 L (3.80-5.40) m/uL Hgb 10.5 L (11.4-16.0) gm/dL Hct 31.9 L (34.0-46.0) % Potassium 3.4 L (3.5-5.1) mmol/L Chloride 108 H (98-107) mmol/L Creatinine 1.10 H (0.52-1.04) mg/dL Glucose 181 H (74-99) mg/dL Calcium 8.2 L (8.4-10.2) mg/dL Crossmatch See Detail
[2021-03-18] MEDS ORDERED: POTASSIUM CHLORIDE ER 20 MEQ TAB.ER PO STA (14:00)
[2021-03-18] MEDS: CYANOCOBALAMIN 500 MCG TAB PO SCH (20:53)
[2021-03-19] MEDS: LEVOTHYROXINE 25 MCG TAB PO SCH (06:50)
[2021-03-19] MEDS: LEVOTHYROXINE 100 MCG TAB PO SCH (06:51)
[2021-03-19] MEDS: SUCRALFATE 1 GM TAB PO SCH ×3 (06:52→16:16)
[2021-03-19 07:06] LABS: HCT 29.3 % (34.0-46.0); HGB 9.7 gm/dL (11.4-16.0); Hypochromasia Slight; MCV 96.8 fL (80.0-100.0); Mean Platelet Volume 8.6; Platelet Count 167 k/uL (150-450); Poikilocytosis Slight; RBC 3.03 m/uL (3.80-5.40); RDW 14.9 % (11.5-15.5); WBC 4.2 k/uL (3.8-10.6)
[2021-03-19 07:16] LABS: Potassium 3.8 mmol/L (3.5-5.1)
[2021-03-19] MEDS: buPROPion XL 300 MG TAB.ER.24H PO SCH (09:08)
[2021-03-19] MEDS: LOSARTAN 25 MG TAB PO SCH (09:09)
[2021-03-19] MEDS: PANTOPRAZOLE 40 MG/10 ML VIAL IVP SCH ×2 (09:09→22:04)
[2021-03-19] MEDS: ATORVASTATIN 10 MG TAB PO SCH (09:09)
--- NOTE | 2021-03-19 14:47 | P.PN ---
Subjective Progress Note Date: 03/19/21 CHIEF COMPLAINT: Gastrointestinal bleed HISTORY OF PRESENT ILLNESS: The patient is a 65-year-old female admitted as transfer from 03/09/2021 for gastrointestinal bleeding. She had both an upper and lower endoscopy 03/11/2021 with features of severe sidhu diverticulosis including gastrojejunal ulcer and placed on Protonix 40 mg BID and Carafate. Hemoglobin was 13.0 on admission. She continued to have large GI bleed despite negative localization studies x 2. She was started on regular diet today. No further reports of bowel movements today. ROS: No reports of nausea and vomiting. No fevers or chills. No new chest pain. No productive sputum PHYSICAL EXAM: VITAL SIGNS: Reviewed CONSTITUTIONAL: Well developed and in no acute distress. EYES: Conjuctivae without sclera icterus. Extraocular movements grossly intact. HEAD, EARS, NOSE, THROAT: Moist buccal mucosa. Head is atraumatic, normocephalic. Hears conversational speech. No nasal drainage. RESPIRATORY: Non-labored respirations and equal bilateral excursions. CARDIOVASCULAR: Palpable 2+ radial pulses. ABDOMEN: Protuberant. No peritonitis. MUSCULOSKELETAL: No gross deformity of the lower extremities noted. No clubbing. No cyanosis. SKIN: Good skin turgor. Well perfused. NEUROLOGIC: Cranial nerves II through XII grossly intact. No focal or lateralizing signs. PSYCH: Appropriate affect. Alert and oriented to person, place and time. CLINICAL LABS: Hemoglobin dropped from 13.0 on admission. Stable at 10.5 now 9.7 ASSESSMENT: 1. Acute blood loss anemia 2. Gastrointestinal bleeding 3. Gastrojejunal ulcer PLAN: 1. Await bowel movement without blood. 2. Continue diet. 3. Pending transfer if symptoms persist. Objective - Vital Signs Vital signs: Vital Signs Temp 96.2 F L 03/19/21 08:00 Pulse 77 03/19/21 12:00 Resp 16 03/19/21 12:00 BP 142/67 03/19/21 12:00 Pulse Ox 97 03/19/21 12:00 Intake & Output 03/18/21 03/19/21 03/19/21 18:59 06:59 18:59 Intake Total 1800 240 Output Total 1400 1000 Balance 400 -1000 240 Weight 107.2 kg Intake: Oral 1800 240 Output: Urine 1400 1000 Other: Voiding Method External Catheter External Catheter External Catheter # Voids 2 2 1 # Bowel Movements 1 - Labs CBC & Chem 7: 03/19/21 06:12 03/19/21 06:12 Labs: Abnormal Lab Results - Last 24 Hours (Table) 03/19/21 03/19/21 Range/Units 06:12 06:12 RBC 3.03 L (3.80-5.40) m/uL Hgb 9.7 L (11.4-16.0) gm/dL Hct 29.3 L (34.0-46.0) % Chloride 113 H (98-107) mmol/L Creatinine 1.12 H (0.52-1.04) mg/dL Calcium 8.0 L (8.4-10.2) mg/dL Assessment and Plan (1) Morbid obesity due to excess calories Current Visit: Yes Status: Acute Code(s): E66.01 - MORBID (SEVERE) OBESITY DUE TO EXCESS CALORIES SNOMED Code(s): 846919293 (2) Body mass index (BMI) of 40.1 to 44.9 in adult Current Visit: Yes Status: Acute Code(s): Z68.41 - BODY MASS INDEX [BMI] 40.0-44.9, ADULT SNOMED Code(s): 840197767 (3) GI bleed Current Visit: Yes Status: Acute Code(s): K92.2 - GASTROINTESTINAL HEMORRHAGE, UNSPECIFIED SNOMED Code(s): 01251741 (4) Hematochezia Current Visit: Yes Status: Acute Code(s): K92.1 - MELENA SNOMED Code(s): 275417165 (5) Diverticulosis large intestine w/o perforation or abscess w/bleeding Current Visit: No Status: Acute Code(s): K57.31 - DVRTCLOS OF LG INT W/O PERFORATION OR ABSCESS W BLEEDING SNOMED Code(s): 6296862665878793 (6) History of gastric bypass Current Visit: No Status: Acute Code(s): Z98.84 - BARIATRIC SURGERY STATUS SNOMED Code(s): 969314648 (7) Lower GI bleed Current Visit: No Status: Acute Code(s): K92.2 - GASTROINTESTINAL HEMORRHAGE, UNSPECIFIED SNOMED Code(s): 92939514 (8) Gastrojejunal ulcer with hemorrhage Current Visit: Yes Status: Acute Code(s): K28.4 - CHRONIC OR UNSPECIFIED GASTROJEJUNAL ULCER WITH HEMORRHAGE SNOMED Code(s): 40764517 (9) Anemia associated with acute blood loss Current Visit: No Status: Acute Code(s): D62 - ACUTE POSTHEMORRHAGIC ANEMIA SNOMED Code(s): 808677717
[2021-03-19] MEDS: SODIUM CHLORIDE 0.9% 1,000 ML IV SCH ×2 (16:18→16:19)
[2021-03-19] MEDS: CYANOCOBALAMIN 500 MCG TAB PO SCH (22:04)
[2021-03-20] MEDS: LEVOTHYROXINE 25 MCG TAB PO SCH (06:54)
[2021-03-20] MEDS: LEVOTHYROXINE 100 MCG TAB PO SCH (06:54)
[2021-03-20] MEDS: SUCRALFATE 1 GM TAB PO SCH ×3 (06:54→18:49)
[2021-03-20] MEDS: PANTOPRAZOLE 40 MG/10 ML VIAL IVP SCH ×2 (08:28→20:57)
[2021-03-20] MEDS: LOSARTAN 25 MG TAB PO SCH (08:28)
[2021-03-20] MEDS: buPROPion XL 300 MG TAB.ER.24H PO SCH (08:28)
[2021-03-20] MEDS: ATORVASTATIN 10 MG TAB PO SCH (08:28)
[2021-03-20 11:02] LABS: HCT 31.9 % (34.0-46.0); HGB 10.4 gm/dL (11.4-16.0); Hypochromasia Moderate; MCH 31.7 pg (25.0-35.0); MCHC 32.5 g/dL (31.0-37.0); MCV 97.8 fL (80.0-100.0); Mean Platelet Volume 8.6; Platelet Count 177 k/uL (150-450); Poikilocytosis Slight; RBC 3.26 m/uL (3.80-5.40); WBC 5.5 k/uL (3.8-10.6)
[2021-03-20] MEDS: SODIUM CHLORIDE 0.9% 1,000 ML IV SCH ×2 (17:52→23:44)
[2021-03-20] MEDS: CYANOCOBALAMIN 500 MCG TAB PO SCH (20:57)
[2021-03-21] MEDS: SODIUM CHLORIDE 0.9% 1,000 ML IV SCH (06:50)
[2021-03-21] MEDS: SUCRALFATE 1 GM TAB PO SCH ×2 (06:53→11:58)
[2021-03-21] MEDS: LEVOTHYROXINE 100 MCG TAB PO SCH (06:53)
[2021-03-21] MEDS: LEVOTHYROXINE 25 MCG TAB PO SCH (06:53)
[2021-03-21 08:53] LABS: HGB 10.2 gm/dL (11.4-16.0); Hypochromasia Moderate; MCH 30.9 pg (25.0-35.0); MCHC 30.9 g/dL (31.0-37.0); MCV 99.7 fL (80.0-100.0); Macrocytosis Slight; Mean Platelet Volume 9.1; Platelet Count 173 k/uL (150-450); Poikilocytosis Slight; RBC 3.31 m/uL (3.80-5.40); RDW 15.3 % (11.5-15.5); WBC 5.2 k/uL (3.8-10.6)
[2021-03-21] MEDS: ATORVASTATIN 10 MG TAB PO SCH (08:56)
[2021-03-21] MEDS: LOSARTAN 25 MG TAB PO SCH (08:56)
[2021-03-21] MEDS: buPROPion XL 300 MG TAB.ER.24H PO SCH (08:56)
[2021-03-21] MEDS: PANTOPRAZOLE 40 MG/10 ML VIAL IVP SCH (08:56)
[2021-03-21 09:00] VITALS: BP 133/76; PULSE 80; RESP 18; TEMP 97.8
--- NOTE | 2021-03-21 15:01 | P.PN ---
Progress Note - Text Progress Note Date: 03/21/21 Patient's daughter called the hospital. Patient is now staying at her daughter helps temporarily. Prescriptions were recent to the location of choice locally. Patient reports she is doing well.
== END 2021-03-21 12:59 | disposition home or self-care (01) | DRG 378 ==
LOC: EC 18:40 → 3SCARD 18:49 → OBSVTOIN 03-11 15:05
PROVIDERS: ADMIT Surgery Plastic and Reconstructive Surgery; ATTEND Surgery Plastic and Reconstructive Surgery
PROC: 0DJ08ZZ Inspection of Upper Intestinal Tract, Via Natural or Artificial Opening Endoscopic (ICD-10-PCS; principal; 2021-03-11 07:55)
PROC: 0DJD8ZZ Inspection of Lower Intestinal Tract, Via Natural or Artificial Opening Endoscopic (ICD-10-PCS; principal; 2021-03-11 07:55)
DX: K28.4 Chronic or unspecified gastrojejunal ulcer with hemorrhage (principal); D62 Acute posthemorrhagic anemia; N17.9 Acute kidney failure, unspecified; Z68.41 Body mass index [BMI] 40.0-44.9, adult; E11.9 Type 2 diabetes mellitus without complications; E66.01 Morbid (severe) obesity due to excess calories; E78.5 Hyperlipidemia, unspecified; E89.0 Postprocedural hypothyroidism; F41.9 Anxiety disorder, unspecified; I10 Essential (primary) hypertension; K57.31 Diverticulosis of large intestine without perforation or abscess with bleeding; K64.1 Second degree hemorrhoids; K66.0 Peritoneal adhesions (postprocedural) (postinfection); R13.10 Dysphagia, unspecified; Z79.890 Hormone replacement therapy; Z79.899 Other long term (current) drug therapy; Z80.3 Family history of malignant neoplasm of breast; Z82.49 Family history of ischemic heart disease and other diseases of the circulatory system; Z83.3 Family history of diabetes mellitus; Z87.891 Personal history of nicotine dependence; Z90.49 Acquired absence of other specified parts of digestive tract; Z90.5 Acquired absence of kidney; Z90.710 Acquired absence of both cervix and uterus; Z98.84 Bariatric surgery status; Z98.890 Other specified postprocedural states; Z98.51 Tubal ligation status; Z20.822 Contact with and (suspected) exposure to COVID-19; Z88.8 Allergy status to other drugs, medicaments and biological substances
CPT/HCPCS: 43235; 45378; 78278; 80048; 80053; 85025; 85027; 85610; 86850; 86900; 86901; 86920; 87635; 99285

== ENCOUNTER → 2021-04-06 | Outpatient (CLI) | payer OTHER ==
[2021-04-06 13:14] VITALS: PULSE 80; RESP 18; TEMP 98.9; BMI 42.7
--- NOTE | 2021-04-06 14:04 | P.BASOAP ---
Subjective Progress Note Date: 04/06/21 DATE OR SERVICE: 04/06/2021 CHIEF COMPLAINT: Gastrointestinal bleeding HISTORY OF PRESENT ILLNESS: Laura Bishop is a 66-year-old female status post gastric bypass, 12/17/2017. She is 3 years out. She has recently hospitalized for gastrointestinal bleeding of unclear etiology. She is eating well. She denies abdominal pain. She reports no further bleeding. Her ideal body weight for her height is 140 pounds for 5 feet 3.25 inches. Her highest weight was 362 pounds. Her highest body mass index was 63.8. She comes in 242 pounds from 239 pounds, 4 months ago. She has gained 3 pounds. She has lost 120 pounds lifetime. Lifetime percent excess weight loss is 54 %. PAST MEDICAL HISTORY: 1. Morbid obesity. 2. Body mass index of 63.4, initial 3. Thyroid neoplasm. 4. Diabetes type 2. 5. Hyperlipidemia. 6. Essential hypertension. 7. Depression. 8. Gastroesophageal reflux disease. 9. Hypothyroidism. 10. Hyperlipidemia. 11. Seasonal ALLERGIES. 12. Gastrointestinal bleed 13. Colon diverticulosis PAST SURGICAL HISTORY: 1. Total thyroidectomy. 2. Adenoidectomy. 3. Cholecystectomy. 4. Tonsillectomy. 5. Tubal ligation. 6. Colonoscopy. 7. Right nephrectomy. 8. Breast biopsy. 9. D&C. 10. Upper endoscopy. 11. Sigmoid colectomy HOME MEDICATIONS: Home Medications Medication Instructions Recorded Confirmed buPROPion XL [Wellbutrin XL] 300 mg PO DAILY 07/29/18 04/06/21 Levothyroxine Sodium [Synthroid] 12.5 mcg PO DAILY 04/28/20 04/06/21 Levothyroxine Sodium [Synthroid] 200 mcg PO DAILY 04/28/20 04/06/21 Cyanocobalamin [Vitamin B-12] 500 mcg PO HS 06/14/20 04/06/21 Multivitamins, Thera [Multivitamin 1 tab PO HS 06/14/20 04/06/21 (formulary)] Atorvastatin [Lipitor] 10 mg PO DAILY 03/09/21 04/06/21 Cholecalciferol [Vitamin D3 (25 25 mcg PO HS 03/09/21 04/06/21 Mcg = 1000 Iu)] Hydrochlorothiazide 12.5 mg PO DAILY 03/09/21 04/06/21 [hydroCHLOROthiazide] Losartan Potassium [Cozaar] 25 mg PO DAILY 03/09/21 04/06/21 Vitamin A [Vitamin A (8,000 Units 2,400 mcg PO HS 03/09/21 04/06/21 = 2,400 MCG)] Zinc 50 mg PO HS 03/09/21 04/06/21 Previous Rx's Medication Instructions Recorded Omeprazole [PriLOSEC] 40 mg PO DAILY #90 cap 03/11/21 Sucralfate [Carafate] 1 gm PO BID #60 tablet 03/11/21 Ondansetron Odt [Zofran Odt] 4 mg PO Q8HR PRN #9 tab 03/21/21 Simethicone 40 mg/0.6 ml Drops 40 mg PO PCHS PRN #30 ml 03/21/21 [Mylicon Drops] bisacodyL [Dulcolax] 5 mg PO DAILY PRN #10 tab 03/21/21 ALLERGIES: Allergies Allergy/AdvReac Type Severity Reaction Status Date / Time prednisone Allergy Rash/Hives/ Verified 04/06/21 13:14 swelling SOCIAL HISTORY: Former tobacco use. No active alcohol use. FAMILY HISTORY: No family history of ulcerative colitis disease or Crohn's disease. She does have a family history of morbid obesity. She denies any lupus in her family. No reports of stomach or esophageal cancer. She has a family history of diabetes. REVIEW OF ORGAN SYSTEMS: CONSTITUTIONAL: Her highest weight was 360 pounds. Her highest body mass index was 63.4. Her ideal body weight is 140 pounds. HEENT: Denies any active troubles with vision or hearing. Has troubles with swallowing now resolved after thyroidectomy. ENDOCRINE: Has insulin dependent diabetes now resolved. Has hypothyroidism. CARDIOVASCULAR: Recent chest pain. History of hypertension. RESPIRATORY: Has daytime somnolence including snoring and sleep apnea. No asthma. GI: Had recent GI bleed. MUSCULOSKELETAL: Has lower back pain and joint pain. Has osteoarthritis of the hips and knees. NEURO: No headaches. No seizure disorders. PSYCH: Has depression without suicidal ideation. RHEUMATOLOGIC: No lupus. No rheumatoid arthritis. HEMATOLOGIC: Denies any abnormal bleeding or bruising. No personal history of DVTs. SKIN: No rash. No skin cancer. PHYSICAL EXAM: VITAL SIGNS: Height 5 foot 3.25 inches, weight 2342pounds. BMI 42.7 Vital Signs Temp 98.9 F 04/06/21 13:05 Pulse 80 04/06/21 13:05 Resp 18 04/06/21 13:05 BP 166/94 04/06/21 14:09 Pulse Ox GENERAL: Well-developed female in no acute distress. HEENT: No scleral icterus. Extraocular movements grossly intact. Hears conversational speech. No nasal drainage. NECK: Supple without lymphadenopathy. CHEST: Nonlabored respirations with equal bilateral excursions. CARDIOVASCULAR: Regular rate and rhythm. Distal 2+ pulses. ABDOMEN: Incisions are granulated. No peritonitis. Ventral hernia from non- bariatric sites MUSCULOSKELETAL: No clubbing, cyanosis. NEURO: No focal or lateralizing signs. Cranial nerves 2 through 12 grossly with in normal limits. PSYCH: Appropriate affect. Alert and oriented to person, place and time. SKIN: Good skin turgor. Well perfused. ASSESSMENT: 1. Morbid obesity due to excess calories. 2. Body mass index 63.4 down to 42.7 3. Status post gastric bypass 4. Dysphagia 5. Atypical chest pain 6. History of gastrointestinal bleeding 7. Diverticulosis 8. Peritoneal adhesions 9. Gastrointestinal hemorrhage 10. Lee colonic diverticulosis 11. Status post colectomy for diverticulitis 12. Diverticulitis 13. Anemia 14. Ventral hernia PLAN: 1. Recommend continue carafate and omeprazole. 2. Recommend referral to GI for enteroscopy. Objective - Vital Signs Vital signs: Vital Signs Temp 98.9 F 04/06/21 13:05 Pulse 80 04/06/21 13:05 Resp 18 04/06/21 13:05 BP 165/107 04/06/21 13:05 Pulse Ox Intake & Output 04/05/21 04/06/21 04/06/21 18:59 06:59 18:59 Weight 110.223 kg Assessment/Plan Plan: Date: 04/06/21 Initial Weight: 155.038 kg Initial BMI: 60.0 Current Weight: 110.223 kg Current BMI: 42.7 Type of Surgery: Total Volume in Band: Previous Volume: Volume Removed: Volume Added: Band Size:
--- NOTE | 2021-04-06 14:07 | P.PN ---
Progress Note - Text Progress Note Date: 04/06/21 To whom it may concern: Laura Bishop is under my medical care. She may return to work April 11, 2021. Regards, Qian Murray MD, FACS
[2021-04-06 14:10] VITALS: BP 166/94
== END ==
LOC: BARWHC3 12:26
PROVIDERS: ATTEND Surgery Plastic and Reconstructive Surgery
DX: E66.01 Morbid (severe) obesity due to excess calories (principal); R13.10 Dysphagia, unspecified; R07.89 Other chest pain; K57.90 Diverticulosis of intestine, part unspecified, without perforation or abscess without bleeding; K66.0 Peritoneal adhesions (postprocedural) (postinfection); K57.92 Diverticulitis of intestine, part unspecified, without perforation or abscess without bleeding; Z90.49 Acquired absence of other specified parts of digestive tract; D64.9 Anemia, unspecified; K43.9 Ventral hernia without obstruction or gangrene; E78.5 Hyperlipidemia, unspecified; I10 Essential (primary) hypertension; F32.A Depression, unspecified; K21.9 Gastro-esophageal reflux disease without esophagitis; E03.9 Hypothyroidism, unspecified; E11.9 Type 2 diabetes mellitus without complications; Z98.84 Bariatric surgery status; Z79.890 Hormone replacement therapy; Z79.899 Other long term (current) drug therapy; Z88.8 Allergy status to other drugs, medicaments and biological substances; Z87.891 Personal history of nicotine dependence; Z68.41 Body mass index [BMI] 40.0-44.9, adult
CPT/HCPCS: 97803; 99211

== ENCOUNTER → 2021-11-30 | Outpatient (CLI) | payer OTHER ==
[2021-11-30 13:38] VITALS: BP 160/97; PULSE 106; TEMP 99.8; BMI 43.5
--- NOTE | 2021-11-30 14:04 | P.BASOAP ---
Subjective Progress Note Date: 11/30/21 So she had another bleeding episode. She is in [place]. She was in [facility]. CBC is pending. She reports epigastric pain. EGD shows recurrent ulcer. Plan for iron infusion. Increase carafate TID. Increase protonix BID. She has little fluid intake. Hold laxatives. Recommend fluids first. Objective - Vital Signs Vital signs: Vital Signs Temp 99.8 F H 11/30/21 13:29 Pulse 106 H 11/30/21 13:29 Resp BP 160/97 11/30/21 13:29 Pulse Ox FiO2 Intake & Output 11/29/21 11/30/21 11/30/21 18:59 06:59 18:59 Weight 112.491 kg Assessment/Plan Plan: Date: 11/30/21 Initial Weight: 155.038 kg Initial BMI: 60.0 Current Weight: 112.491 kg Current BMI: 43.5 Type of Surgery: Total Volume in Band: Previous Volume: Volume Removed: Volume Added: Band Size:
== END | disposition home or self-care (01) ==
LOC: BARWHC3 13:21
PROVIDERS: ATTEND Surgery Plastic and Reconstructive Surgery
DX: E66.01 Morbid (severe) obesity due to excess calories (principal); R10.13 Epigastric pain; L98.499 Non-pressure chronic ulcer of skin of other sites with unspecified severity; Z68.44 Body mass index [BMI] 60.0-69.9, adult
CPT/HCPCS: 99211

== ENCOUNTER → 2021-11-30 | Outpatient (CLI) | payer OTHER ==
[2021-11-30 14:00] LABS: HCT 39.4 % (34.0-46.0); HGB 12.1 gm/dL (11.4-16.0); Hypochromasia Moderate; MCH 26.5 pg (25.0-35.0); MCHC 30.7 g/dL (31.0-37.0); MCV 86.3 fL (80.0-100.0); Mean Platelet Volume 9.2; Platelet Count 185 k/uL (150-450); RBC 4.57 m/uL (3.80-5.40); RDW 15.5 % (11.5-15.5); WBC 6.3 k/uL (3.8-10.6)
== END | disposition home or self-care (01) ==
LOC: LABWHC1 11:36
PROVIDERS: ATTEND Surgery Plastic and Reconstructive Surgery
DX: E66.01 Morbid (severe) obesity due to excess calories (principal)
CPT/HCPCS: 36415; 85027

== ENCOUNTER → 2022-06-14 | Outpatient (CLI) | payer MEDICARE ==
[2022-06-14 15:04] VITALS: BP 164/95; PULSE 87; TEMP 98.9; BMI 43.0
--- NOTE | 2022-06-14 16:22 | P.BASOAP ---
Subjective Progress Note Date: 06/14/22 She has no further bleeding. Recommend antibiotics on hand prior to bleeding. She is doing well after stretch. Has symptomatic incisional hernia, needs 4 weeks recovery. Objective - Vital Signs Vital signs: Vital Signs Temp 98.9 F 06/14/22 14:57 Pulse 87 06/14/22 14:57 Resp BP 164/95 06/14/22 14:57 Pulse Ox FiO2 Intake & Output 06/13/22 06/14/22 06/14/22 18:59 06:59 18:59 Weight 111.13 kg Assessment/Plan Plan: Date: 06/14/22 Initial Weight: 155.038 kg Initial BMI: 60.0 Current Weight: 111.13 kg Current BMI: 43.0 Type of Surgery: Total Volume in Band: Previous Volume: Volume Removed: Volume Added: Band Size:
== END ==
LOC: BARWHC3 14:26
PROVIDERS: ATTEND Surgery Plastic and Reconstructive Surgery
DX: E66.01 Morbid (severe) obesity due to excess calories (principal); Z68.41 Body mass index [BMI] 40.0-44.9, adult; Z88.8 Allergy status to other drugs, medicaments and biological substances; Z87.891 Personal history of nicotine dependence
CPT/HCPCS: 99211

== ENCOUNTER → 2022-07-24 | Outpatient (CLI) | payer MEDICARE ==
[2022-07-24 15:28] LABS: Albumin/Globulin Ratio 1.54 (1.60-3.17); Anion Gap 9.5 mmol/L (10.00-18.00); Blood Urea Nitrogen 29.7 mg/dL (9.0-27.0); Calcium 8.8 mg/dL (8.7-10.3); Carbon Dioxide 27.5 mmol/L (20.0-27.5); Globulin 2.6 g/dL (1.6-3.3); Non-African American GFR(CKD) 52.6 (60.0-200.0); Potassium 4.9 mmol/L (3.5-5.5); Total Bilirubin 0.3 mg/dL (0.30-1.20); Total Protein 6.6 g/dL (6.2-8.2)
[2022-07-24 15:30] LABS: Basophils # (A) 0.09 X 10*3/uL (0.00-0.10); Basophils % (A) 1.4 %; Eosinophils # (A) 0.14 X 10*3/uL (0.04-0.35); Eosinophils % (A) 2.2 %; HCT 47.5 % (37.2-46.3); HGB 14.6 g/dL (12.0-15.0); Immature Grans, Automated 0.3 %; Lymphocytes # (A) 1.38 X 10*3/uL (0.90-5.00); Lymphocytes % (A) 21.7 %; MCH 28.6 pg (27.0-32.0); MCHC 30.7 g/dL (32.0-37.0); MCV 93.1 fL (80.0-97.0); Mean Platelet Volume 11.7 fL (9.5-12.2); Monocytes # (A) 0.45 X 10*3/uL (0.20-1.00); Monocytes % (A) 7.1 %; NRBC Per 100 WBC 0 /100 WBCS (0.0-0.0); Neutrophils # (A) 4.29 X 10*3/uL (1.80-7.70); Neutrophils % (A) 67.3 %; Platelet Count 171 X 10*3/uL (140-440); RDW 13.7 % (11.5-14.5); WBC 6.37 X 10*3/uL (4.50-10.00)
== END | disposition home or self-care (01) ==
LOC: LABPAT 08:15
PROVIDERS: ATTEND Surgery Plastic and Reconstructive Surgery
DX: Z01.812 Encounter for preprocedural laboratory examination (principal); I49.1 Atrial premature depolarization; R94.31 Abnormal electrocardiogram [ECG] [EKG]
CPT/HCPCS: 80053; 85025; 93005

== ENCOUNTER 2022-08-07 11:33 | Day surgery (SDC) | payer MEDICARE ==
[2022-08-02 09:45] VITALS: BMI 43.5
--- NOTE | 2022-08-07 07:43 | P.GSHP ---
History of Present Illness H&P Date: 08/07/22 CHIEF COMPLAINT: Ventral hernia. HISTORY OF PRESENT ILLNESS: The patient is a 67-year-old female who presents with swelling along the abdomen for over 3 years with pain and tenderness. Findings are consistent with ventral hernia. She reports change in bowel habits. Now she presents for further evaluation and management. PAST MEDICAL HISTORY: Please see list and reviewed. PAST SURGICAL HISTORY: Please see list and reviewed. MEDICATIONS: Please see list and reviewed. ALLERGIES: Please see list and reviewed. SOCIAL HISTORY: Please see list and reviewed. FAMILY HISTORY: No reports of Crohn disease or ulcerative colitis. REVIEW OF ORGAN SYSTEMS: CONSTITUTIONAL: No reports of fevers or chills. Has morbid obesity. GI: Denies any blood in stools or constipation. HEENT: Denies any trouble with vision, hearing or nosebleeds. No difficulty swallowing. LYMPHATIC: The patient denies any lumps and bumps around the neck. ENDOCRINE: Denies any thyroid disorders. Has blood sugar glucose intolerance RESPIRATORY: Denies pneumonia. Denies any troubles with breathing or dyspnea on exertion. CARDIOVASCULAR: Denies any chest pain, palpitations, or recent heart attacks. GENITOURINARY: Denies any blood in urine or increased urinary frequency. MUSCULOSKELETAL: Denies any back pain, stiffness, joint arthritis. NEUROLOGIC: Denies any numbness or tingling along the distal extremities. No seizure disorders or headaches. PSYCHIATRIC: Has depression. No suidical ideation. HEMATOLOGIC: Denies any abnormal bleeding or bruising. BREASTS: Denies any breast lumps, pain or nipple discharge. PHYSICAL EXAM: VITAL SIGNS: Stable GENERAL: Well-developed pleasant female in no acute distress. HEENT: No scleral icterus. Extraocular movements grossly intact. Moist buccal mucosa. NECK: Supple without lymphadenopathy. CHEST: Unlabored respirations. Equal bilateral excursions. CARDIOVASCULAR: Regular rate and rhythm. Distal 2+ pulses. ABDOMEN: Soft, nondistended. Tender along the abdomen. Protuberant. MUSCULOSKELETAL: No clubbing, cyanosis, or edema. SKIN: Well perfused. PSYCH: Alert and oriented. No focal or lateralizing signs. ASSESSMENT: 1. Ventral hernia. 2. Morbid obesity, BMI 43.6 PLAN: 1. Recommend proceeding with robotic ventral hernia repair with mesh. 2. Benefits and risks of surgical intervention was discussed including possibility of open technique. 3. DVT prophylaxis. 4. Antibiotic prophylaxis. 5. She is elevated risk with BMI over 35 and morbid obesity. 6. Nutritional assessment for BMI over 35 addressed 7. Non-narcotic pain managment reviewed. 8. Diabetes with strict glycemic control reviewed. Past Medical History Past Medical History: Diabetes Mellitus, GERD/Reflux, GI Bleed, Hyperlipidemia, Hypertension, Renal Disease, Thyroid Disorder Additional Past Medical History / Comment(s): Hiatal hernia, hx diverticulitis with lower GI bleed, gastric stricture/dysphagia with dilation, hx benign gastric polyp, NIDDM type II, no longer on meds since weight loss, GI bleed in "old stomach" (hx gastric bypass, GI bleed related to stomach that is not used), only has left kidney. History of Any Multi-Drug Resistant Organisms: None Reported Past Surgical History: Adenoidectomy, Bariatric Surgery, Bowel Resection, Breast Surgery, Cholecystectomy, Hysterectomy, Tonsillectomy, Tubal Ligation Additional Past Surgical History / Comment(s): Right nephrectomy(congental defect)/ureterectomy, thyroidectomy, [facility] gastric bypass, EGD with dilation, colonoscopy, hysteroscopy D&C X2, benign right breast biopsy, colon resection 06/17/2020. Past Anesthesia/Blood Transfusion Reactions: Previous Problems w/ Anesthesia, Motion Sickness, Postoperative Nausea & Vomiting (PONV) Additional Past Anesthesia/Blood Transfusion Reaction / Comment(s): Hard time awakening from anesthesia, " TAKES LONGER TO WAKE UP." Past Psychological History: Anxiety Smoking Status: Former smoker Past Alcohol Use History: None Reported Additional Past Alcohol Use History / Comment(s): Smoker from 1973 until 1984, 3 cigarettes daily. Past Drug Use History: Marijuana Additional Drug Use History / Comment(s): Occasional CBD oil. Aware no use 24 hrs prior to procedure. - Past Family History Father Family Medical History: Cancer Additional Family Medical History / Comment(s): Lung cancer. Mother Family Medical History: Cancer Additional Family Medical History / Comment(s): Breast cancer. Sister(s) Family Medical History: Cancer Additional Family Medical History / Comment(s): 2 SISTERS HAD BREAST CANCER, 1 HAS BLADDER CANCER. Brother(s) Family Medical History: Cancer Additional Family Medical History / Comment(s): Brother is living. He had a ID at the age of 50yrs. Medications and Allergies Home Medications Medication Instructions Recorded Confirmed Type buPROPion XL [Wellbutrin XL] 300 mg PO DAILY 07/29/18 06/14/22 History Levothyroxine Sodium [Synthroid] 200 mcg PO DAILY 04/28/20 06/14/22 History Multivitamins, Thera [Multivitamin 1 tab PO HS 06/14/20 06/14/22 History (formulary)] Atorvastatin [Lipitor] 10 mg PO DAILY 03/09/21 06/14/22 History Losartan Potassium [Cozaar] 25 mg PO DAILY 03/09/21 06/14/22 History hydroCHLOROthiazide 12.5 mg PO DAILY 03/09/21 06/14/22 History Pantoprazole [Protonix] 40 mg PO BID #30 tab 11/30/21 06/14/22 Rx Sucralfate [Carafate] 1 gm PO TID #90 tablet 12/21/21 06/14/22 Rx Ciprofloxacin HCl [Cipro] 500 mg PO Q12HR #20 tablet 06/14/22 Rx metroNIDAZOLE [Flagyl] 500 mg PO TID #30 tab 06/14/22 Rx Allergies Allergy/AdvReac Type Severity Reaction Status Date / Time prednisone Allergy Rash/Hives/ Verified 08/02/22 09:23 swelling
[~2022-08-07 11:33] MED LIST changes: +ACETAMINOPHEN TAB 500 MG TAB PO STA; +HEPARIN SODIUM,PORCINE/PF 5,000 UNIT/0.5 ML SYRINGE SQ PRN; +HYDROmorphone 0.5 MG/0.5 ML SYRINGE IVP PRN; +LACTATED RINGERS 1,000 ML IV SCH; -LIDOCAINE 1% (10MG/ML) FOR IV START INTRADERMA PRN; +ONDANSETRON 4 MG/2 ML VIAL IVP ONE
[2022-08-07 12:05] LABS: Glucose,Whole Blood 108 mg/dL (70-110)
[2022-08-07] MEDS ORDERED: ROCURONIUM 10 MG/ML (5 ML VIAL) IV ONE (12:23)
[2022-08-07] MEDS ORDERED: NEOSTIGMINE 1 MG/ML 10 ML VIAL ONE (12:23)
[2022-08-07] MEDS ORDERED: MIDAZOLAM 2 MG/2 ML VIAL ONE (12:23)
[2022-08-07] MEDS ORDERED: HYDROmorphone (PF) 1 MG/ML ONE (12:23)
[2022-08-07] MEDS ORDERED: SUCCINYLCHOLINE CHLORIDE 200 MG/10 ML VIAL IV ONE (12:23)
[2022-08-07] MEDS ORDERED: GLYCOPYRROLATE 0.2 MG/ML 2 ML VIAL ONE (12:23)
[2022-08-07] MEDS ORDERED: fentaNYL (PF) 50 MCG/ML 2 ML AMP ONE (12:23)
[2022-08-07] MEDS ORDERED: LIDOCAINE 2% INJ 20 MG/ML (2 ML VIAL) ONE (12:23)
[2022-08-07] MEDS ORDERED: PROPOFOL 10 MG/ML 20 ML VIAL IV ONE (12:23)
[2022-08-07] MEDS ORDERED: LIDOCAINE 2%-EPI 1:100,000 20 ML VIAL SQ ONE (12:59)
[2022-08-07] MEDS ORDERED: LACTATED RINGERS 1,000 ML IV ONE (13:55)
[2022-08-07 14:12] VITALS: RESP 16; TEMP 97.2
--- NOTE | 2022-08-07 15:57 | P.OP ---
Date of Procedure: 08/07/22 Description of Procedure: SURGEON: DION GARCIA MD PREOPERATIVE DIAGNOSES: 1. Incarcerated ventral hernia 2. Morbid obesity due to excess calories, BMI 44.1 3. History of gastric bypass 4. Hypertensive heart disease 5. History of thyroid cancer 6. Hypothyroidism 7. Depressive disorder 8. Congenital signal kidney 9. Hyperlipidemia 10. Postoperative nausea or vomiting 11. Severe epigastric and midline adhesions POSTOPERATIVE DIAGNOSES: 1. Recurrent incarcerated incisional ventral hernia, epigastrium, 3 cm 2. Morbid obesity due to excess calories, BMI 44.1 3. History of gastric bypass 4. Hypertensive heart disease 5. History of thyroid cancer 6. Hypothyroidism 7. Depressive disorder 8. Congenital signal kidney 9. Hyperlipidemia 10. Postoperative nausea or vomiting 11. Severe epigastric and midline adhesions OPERATION: 1. Robotic-assisted da Jitendra Xi laparoscopic repair of recurrent incarcerated incisional ventral hernia with mesh, ventralight ST mesh 11.4 cm 2. Robotic-assisted da Jitendra Xi laparoscopic lysis of adhesions over 30 minutes Anesthesia: GETA, regional, local Estimated Blood Loss (ml): 5 Pathology: 1. Incarcerated upper midline ventral hernia defect COMPLICATIONS: None. Operative Findings: 1. Upper midline recurrent incisional epigastric ventral hernia defect 3 x 3 cm with previous suture identified 2. Fascia repaired using #1 V-lock suture INDICATIONS: The patient is a 67-year-old male who presents with a personal hist ory of abdominal wall hernia with epigastric abdominal pain. Surgical intervention with laparoscopic versus robotic and open techniques were reviewed. Placement of mesh was also reviewed. Benefits and risks were thoroughly described. Informed consent was obtained. DESCRIPTION OF PROCEDURE: The patient was brought into the operating room and laid in supine position. After general induction, the abdomen had been prepped and draped in standard sterile fashion. Ioban draping was also placed. Prior to incision, a timeout protocol was confirmed with surgical team regarding the patient's name including procedures to be performed. The robot was primed prior to the procedure. A field block using local anesthetic was placed along hernia site including the proposed port sites. Initial incision was made with an #11 blade along the left upper quadrant. A 0 degree 5 mm laparoscopic trocar entry was performed and insufflated. Three 8 mm ports were placed along the left lateral abdominal wall under direct localization after exchanging the 5-mm for an 8 mm port. Placements of the ports were 15 cm from the target anatomy and 10 cm apart. An accessory 12 mm port was placed at the left upper quadrant for exchange of mesh including sutures. The da Jitendra Xi robot was previously primed, prepped and draped then docked from the left side of the patient onto the left side of the patient. I then sat at the robot Da Jitendra Xi console where working arms of the robot including Bovie cautery connected to robotic scissors, needle driver's license examiner, and graspers placed by the fast food assistant restaurant manager. Maribell's laparoscopy demonstrated moderate omental abdominal wall adhesions of the epigastrium and umbilicus. Vessel sealer was used to resect adhesions along the abdominal wall over 30 minutes. Incarcerated omental contents were found along the upper midline defect and reduced. The distinct fascial defect found: Upper midline defect 3 x 3 cm with larger defect and subcutaneous tissue The incarcerated contents were reduced as the peritoneal fat was cleaned from the abdominal wall. Next, hemostasis was checked with cautery. The hernia defects were oversewn using #1 nonabsorbable V-lock suture for each defect separately with fascial imbrication x 2. Next, ventralight ST mesh 11.4 cm was placed with the rough side towards the abdominal wall. 2-0 VLOC 9 inch sutures were used to fixate the mesh. A final endoscopic imaging was obtained. All instruments and pneumoperitoneum were evacuated from the abdominal cavity. The da Jitendra Xi robot was undocked from the patient. I re-scrubbed into the case for closure of incisions. The fascia of the 12-mm port was probed and less than 8-mm in size. The incisions were reapproximated using 4-0 Monocryl in an interrupted subcuticular fashion. Liquid glue was applied to the skin after cleansing the skin with normal saline and dilute hydrogen peroxide. An abdominal binder was placed. At the end of the procedure, needle, sponge, and instrument count had been verified correct by surgical territory manager. The patient was taken to the postanesthesia care unit in stable condition. Plan - Discharge Summary Discharge Rx Participant: Yes New Discharge Prescriptions: New Simethicone [Gas-X] 125 mg PO AC-TID PRN #20 capsule PRN Reason: Pain Acetaminophen Tab [Tylenol Tab] 1,000 mg PO Q6HR PRN #30 tablet PRN Reason: Pain Continue buPROPion XL [Wellbutrin XL] 300 mg PO DAILY Levothyroxine Sodium [Synthroid] 200 mcg PO DAILY Multivitamins, Thera [Multivitamin (formulary)] 1 tab PO HS Losartan Potassium [Cozaar] 25 mg PO DAILY Atorvastatin [Lipitor] 10 mg PO DAILY Sucralfate [Carafate] 1 gm PO TID #90 tablet hydroCHLOROthiazide 12.5 mg PO DAILY Discharge Medication List buPROPion XL [Wellbutrin XL] 300 mg PO DAILY 07/29/18 [History] Levothyroxine Sodium [Synthroid] 200 mcg PO DAILY 04/28/20 [History] Multivitamins, Thera [Multivitamin (formulary)] 1 tab PO HS 06/14/20 [History] Atorvastatin [Lipitor] 10 mg PO DAILY 03/09/21 [History] Losartan Potassium [Cozaar] 25 mg PO DAILY 03/09/21 [History] hydroCHLOROthiazide 12.5 mg PO DAILY 03/09/21 [History] Sucralfate [Carafate] 1 gm PO TID #90 tablet 12/21/21 [Rx] Acetaminophen Tab [Tylenol Tab] 1,000 mg PO Q6HR PRN #30 tablet 08/07/22 [Rx] Simethicone [Gas-X] 125 mg PO AC-TID PRN #20 capsule 08/07/22 [Rx] [facility]ment(s[facility]Ref[facility] [facility] [place] [place] [place] 08[facility]11/22 9:00 am Patient Instructions/Handouts: *Surgery [facility] - (Anesthesia) Discharge Instructions Outpatient Surgery Activity/Diet/Wound Care/Special Instructions: Using antibacterial soap. No lifting over 4 pounds 4 weeks, September 07July shower. No bathtub soaks for 2 weeks, August 21 Wear abdominal binder daily for comfort except for showering. Use ice along incisions for today to prevent swelling. Take tylenol, aleve/ibuprofen, simethicone scheduled for 3 days for best pain relief Discharge Disposition: HOME SELF-CARE
[2022-08-07 16:24] VITALS: BP 158/70; PULSE 68
[2022-08-07] MEDS ORDERED: ACETAMINOPHEN TAB 500 MG TAB ONE (16:49)
[2022-08-07] MEDS ORDERED: ACETAMINOPHEN TAB 500 MG TAB PO ONE (16:51)
== END 2022-08-07 17:25 | disposition home or self-care (01) ==
LOC: OR 11:33
PROVIDERS: ATTEND Surgery Plastic and Reconstructive Surgery
DX: K43.0 Incisional hernia with obstruction, without gangrene (principal); K66.0 Peritoneal adhesions (postprocedural) (postinfection); E66.01 Morbid (severe) obesity due to excess calories; Z68.41 Body mass index [BMI] 40.0-44.9, adult; I11.9 Hypertensive heart disease without heart failure; E78.5 Hyperlipidemia, unspecified; Z98.84 Bariatric surgery status; E03.9 Hypothyroidism, unspecified; Z79.890 Hormone replacement therapy; E11.9 Type 2 diabetes mellitus without complications; Z79.84 Long term (current) use of oral hypoglycemic drugs; F33.9 Major depressive disorder, recurrent, unspecified; Z87.448 Personal history of other diseases of urinary system; Z85.850 Personal history of malignant neoplasm of thyroid; Z90.49 Acquired absence of other specified parts of digestive tract; F41.9 Anxiety disorder, unspecified; Z87.891 Personal history of nicotine dependence; F12.90 Cannabis use, unspecified, uncomplicated; Z88.8 Allergy status to other drugs, medicaments and biological substances
CPT/HCPCS: 49616; S2900; 86850; 86900; 86901; 88302

== ENCOUNTER → 2022-08-11 | Outpatient (CLI) | payer MEDICARE ==
[2022-08-11 11:14] VITALS: BP 193/70; PULSE 76; RESP 12; TEMP 98.4; BMI 44.2
--- NOTE | 2022-08-14 21:01 | P.BASOAP ---
Subjective Progress Note Date: 08/11/22 DATE OR SERVICE: 08/11/2022 CHIEF COMPLAINT: Status post gastric bypass HISTORY OF PRESENT ILLNESS: Laura Bishop is a 67-year-old female status post gastric bypass, 12/17/2017. She is 5 years out. She is status post incisional hernia repair 08/07/2022, postop day 4. Her pain is well-controlled. Where abdominal binder. Weight lifting restrictions for pounds for 4 weeks. Recommend high protein diet for optimal recovery. No infection along incisions. Her ideal body weight for her height is 140 pounds for 5 feet 3.25 inches. Her highest weight was 362 pounds. Her highest body mass index was 63.8. She comes in 249 pounds from 247 pounds, 1 year ago. She has gained 5 pounds. She has lost 113 pounds lifetime. Lifetime percent excess weight loss is 51 %. PHYSICAL EXAM: VITAL SIGNS: Height 5 foot 3.25 inches, weight 249 pounds. BMI 43.9 Vital Signs Temp 98.4 F 08/11/22 11:05 Pulse 76 08/11/22 11:05 Resp 12 08/11/22 11:05 BP 193/70 08/11/22 11:05 Pulse Ox FiO2 GENERAL: Well-developed female in no acute distress. HEENT: No scleral icterus. Extraocular movements grossly intact. Hears conversational speech. No nasal drainage. NECK: Supple without lymphadenopathy. CHEST: Nonlabored respirations with equal bilateral excursions. CARDIOVASCULAR: Tachycardic. Distal 2+ pulses. ABDOMEN: No recurrent hernia. Dressing discontinued. Obese. No infection along incisions. Abdominal binder repositioned. MUSCULOSKELETAL: No clubbing, cyanosis. NEURO: No focal or lateralizing signs. Cranial nerves 2 through 12 grossly within normal limits. PSYCH: Appropriate affect. Alert and oriented to person, place and time. SKIN: Good skin turgor. Well perfused. ASSESSMENT: 1. Morbid obesity due to excess calories. 2. Body mass index 63.4 down to 43.9 3. Status post gastric bypass 4. Dysphagia 5. Atypical chest pain 6. History of gastrointestinal bleeding, recurrent. 7. Diverticulosis 8. Peritoneal adhesions 9. Gastrointestinal hemorrhage 10. Lee colonic diverticulosis 11. Status post colectomy for diverticulitis 12. Diverticulitis 13. Anemia 14. Status post incisional ventral hernia repair 15. Hypertensive heart disease PLAN: 1. Recommend wear abdominal binder. 2. Weight lifting restrictions 4 pounds for 4 weeks, until 09/07/2022. 3. Recommend high protein diet over 65 g daily for optimal recovery. Objective - Vital Signs Vital signs: Vital Signs Temp 98.4 F 08/11/22 11:05 Pulse 76 08/11/22 11:05 Resp 12 08/11/22 11:05 BP 193/70 08/11/22 11:05 Pulse Ox FiO2 Assessment/Plan Plan: Date: 08/11/22 Initial Weight: 155.038 kg Initial BMI: 60.5 Current Weight: 113.398 kg Current BMI: 44.2 Type of Surgery: Total Volume in Band: Previous Volume: Volume Removed: Volume Added: Band Size:
== END ==
LOC: BARWHC3 09:26
PROVIDERS: ATTEND Surgery Plastic and Reconstructive Surgery
DX: E66.01 Morbid (severe) obesity due to excess calories (principal); D64.9 Anemia, unspecified; R13.10 Dysphagia, unspecified; I11.9 Hypertensive heart disease without heart failure; K92.2 Gastrointestinal hemorrhage, unspecified; K66.0 Peritoneal adhesions (postprocedural) (postinfection); K43.2 Incisional hernia without obstruction or gangrene; Z98.84 Bariatric surgery status; Z68.41 Body mass index [BMI] 40.0-44.9, adult; Z88.8 Allergy status to other drugs, medicaments and biological substances; Z87.891 Personal history of nicotine dependence
CPT/HCPCS: 99211

== ENCOUNTER → 2022-08-30 | Outpatient (CLI) | payer MEDICARE ==
[2022-08-30 14:15] VITALS: BP 144/83; PULSE 79; TEMP 98.7; BMI 43.9
--- NOTE | 2022-08-30 14:54 | P.BASOAP ---
Subjective Progress Note Date: 08/30/22 She reports new right lower quadrant pain for 2 weeks. She has her appendix. She reports she cannot lay down. Wearing her bidner bothers her. She no longer has problems with her hernia. Plan for empiric antibiotics for both appendix and diverticulitis. Short course for antiboitics. Objective - Vital Signs Vital signs: Vital Signs Temp 98.7 F 08/30/22 14:09 Pulse 79 08/30/22 14:09 Resp BP 144/83 08/30/22 14:09 Pulse Ox FiO2 Intake & Output 08/29/22 08/30/22 08/30/22 18:59 06:59 18:59 Weight 113.398 kg Assessment/Plan Plan: Date: 08/30/22 Initial Weight: 155.038 kg Initial BMI: 60.0 Current Weight: 113.398 kg Current BMI: 43.9 Type of Surgery: Total Volume in Band: Previous Volume: Volume Removed: Volume Added: Band Size:
--- NOTE | 2022-08-30 15:14 | P.PN ---
Progress Note - Text Progress Note Date: 08/30/22 To whom it may concern: Laura Bishop just had major surgery. She may return to work without r estrictions, August. Regards, Qian Murray MD, FACS
== END ==
LOC: BARWHC3 13:46
PROVIDERS: ATTEND Surgery Plastic and Reconstructive Surgery
DX: E66.01 Morbid (severe) obesity due to excess calories (principal); Z68.41 Body mass index [BMI] 40.0-44.9, adult; Z88.8 Allergy status to other drugs, medicaments and biological substances; Z87.891 Personal history of nicotine dependence
CPT/HCPCS: 99211

== ENCOUNTER → 2022-12-01 | Outpatient (CLI) | payer MEDICARE ==
[2022-12-01 08:53] LABS: INR 0.9 (<1.2); Partial Thromboplastin Time 23.1 sec (22.0-30.0); Prothrombin Time 9.6 sec (9.0-12.0)
[2022-12-01 10:54] LABS: Appearance,Urine Clear (Clear); Bacteria,Urine Rare /hpf; Bilirubin,Urine Negative (Negative); Blood,Urine Negative (Negative); Color,Urine Light Yellow; Glucose,Urine (UA) Negative (Negative); Hyaline Casts,Urine 1 /lpf (0-2); Ketones,Urine Negative (Negative); Leukocyte Esterase,Urine Large (Negative); Mucus,Urine Occasional /hpf; Nitrite,Urine Negative (Negative); PH, Urine 5.5 (5.0-8.0); Protein,Urine Negative (Negative); RBC,Urine 1 /hpf (0-5); Specific Gravity,Urine 1.023 (1.001-1.035); Squamous Epithelial Cell,Urine 5 /hpf (0-4); Urobilinogen,Urine <2.0 mg/dL (<2.0); WBC,Urine 12 /hpf (0-5)
[2022-12-01 14:04] LABS: HCT 47.4 % (37.2-46.3); HGB 14.8 d/dL (12.0-15.0); MCH 28.8 pg (27.0-32.0); MCHC 31.2 d/dL (32.0-37.0); MCV 92.2 FL (80.0-97.0); Mean Platelet Volume 11.2 FL (9.5-12.2); NRBC Per 100 WBC 0 X 10*3/uL (0.00-0.01); Platelet Count 165 X 10*3/uL (140-440); RBC 5.14 X 10*6/uL (4.10-5.20); RDW 15.8 % (11.5-14.5); WBC 7.25 X 10*3/uL (4.50-10.00)
[2022-12-01 14:14] LABS: ALT 21 U/L (8-44); AST 19 U/L (13-35); Albumin 3.9 d/dL (3.8-4.9); Albumin/Globulin Ratio 1.62 Ratio (1.60-3.17); Alkaline Phosphatase 106 U/L (41-126); BUN/Creat Ratio 20.18 Ratio (12.00-20.00); Blood Urea Nitrogen 22.2 mg/dL (9.0-27.0); Calcium 8.6 mg/dL (8.7-10.3); Carbon Dioxide 26.1 mmol/L (21.6-31.8); Chloride 107 mmol/L (96-109); Globulin 2.4 d/dL (1.6-3.3); Glucose 125 mg/dL (70-110); Potassium 4.4 mmol/L (3.5-5.5); Sodium 145 mmol/L (135-145); Total Bilirubin 0.4 mg/dL (0.3-1.2); Total Protein 6.3 d/dL (6.2-8.2)
== END | disposition home or self-care (01) ==
LOC: LABPAT 07:04
PROVIDERS: ATTEND Orthopaedic Surgery
DX: Z01.812 Encounter for preprocedural laboratory examination (principal); M17.12 Unilateral primary osteoarthritis, left knee; I51.7 Cardiomegaly; R94.31 Abnormal electrocardiogram [ECG] [EKG]
CPT/HCPCS: 80053; 81001; 85027; 85610; 85730; 87070; 93005

== ENCOUNTER 2022-12-11 05:33 | Day surgery (SDC) | payer MEDICARE ==
[2022-12-07 15:33] VITALS: BMI 43.6
[~2022-12-11 05:33] MED LIST changes: +ACETAMINOPHEN TAB 500 MG TAB PO PRN; -ACETAMINOPHEN TAB 500 MG TAB PO STA; +GABAPENTIN 300 MG CAP PO PRN; -HEPARIN SODIUM,PORCINE/PF 5,000 UNIT/0.5 ML SYRINGE SQ PRN; -HYDROmorphone 0.5 MG/0.5 ML SYRINGE IVP PRN; -LACTATED RINGERS 1,000 ML IV SCH; +MELOXICAM 7.5 MG TAB PO PRN; -ONDANSETRON 4 MG/2 ML VIAL IVP ONE; +TRANEXAMIC 1,000 MG/100ML-NACL 1,000 MG in SALINE 1 100ML.BAG IVPB PRN
[2022-12-11] MEDS ORDERED: MIDAZOLAM 2 MG/2 ML VIAL IV PRN (05:54)
[2022-12-11] MEDS ORDERED: ONDANSETRON 4 MG/2 ML VIAL IVP ONE (05:54)
[2022-12-11] MEDS ORDERED: LIDOCAINE 1% (10MG/ML) FOR IV START INTRADERMA PRN (05:54)
[2022-12-11] MEDS: LACTATED RINGERS 1,000 ML IV SCH (06:06)
[2022-12-11 06:21] LABS: Glucose,Whole Blood 115 mg/dL (70-110)
[2022-12-11] MEDS ORDERED: MIDAZOLAM 2 MG/2 ML VIAL IVP ONE (06:46)
[2022-12-11] MEDS ORDERED: ROCURONIUM 10 MG/ML (5 ML VIAL) IV ONE (07:05)
[2022-12-11] MEDS ORDERED: TRANEXAMIC 1,000 MG/100ML-NACL PREMIX BAG ONE (07:05)
[2022-12-11] MEDS ORDERED: PROPOFOL 10 MG/ML 20 ML VIAL IV ONE (07:05)
[2022-12-11] MEDS ORDERED: LIDOCAINE 2% INJ 20 MG/ML (2 ML VIAL) ONE (07:05)
[2022-12-11] MEDS ORDERED: HYDROmorphone (PF) 1 MG/ML ONE (07:05)
[2022-12-11] MEDS ORDERED: ROPIVACAINE 5 MG/ML 30 ML VIAL ONE (07:05)
[2022-12-11] MEDS ORDERED: SUCCINYLCHOLINE CHLORIDE 200 MG/10 ML VIAL IV ONE (07:05)
[2022-12-11] MEDS ORDERED: GLYCOPYRROLATE 0.2 MG/ML 2 ML VIAL ONE (07:05)
[2022-12-11] MEDS ORDERED: fentaNYL (PF) 50 MCG/ML 2 ML AMP ONE (07:05)
[2022-12-11] MEDS ORDERED: SODIUM CHLORIDE 0.9% (PF) 10 ML VIAL ONE (07:05)
[2022-12-11] MEDS ORDERED: MIDAZOLAM 2 MG/2 ML VIAL ONE (07:05)
[2022-12-11] MEDS ORDERED: NEOSTIGMINE 1 MG/ML 10 ML VIAL ONE (07:05)
[2022-12-11] MEDS ORDERED: DEXAMETHASONE SOD PHOSPHATE 4 MG/ML 1 ML VIAL ONE (07:05)
[2022-12-11] MEDS ORDERED: ceFAZolin 1,000 MG in SODIUM CHLORIDE 0.9% 1,000 ML IRRIGATION ONE (07:10)
--- NOTE | 2022-12-11 08:33 | P.OP ---
Date of Procedure: 12/11/22 Preoperative Diagnosis: Severe osteoarthritis left knee Postoperative Diagnosis: Severe osteoarthritis left knee Procedure(s) Performed: Left total knee arthroplasty Implants: Young [employer] Nephew Journey II CR Oxinium cruciate retaining femoral component size 5, left [employer] Journey nonporous tibial baseplate size 4, left [employer] Journey II, XLPE Deep Dished articular insert, size 11 mm, Size 3-4, left [employer] Journey Taylor II resurfacing patellar component, oval, 29 mm All components were cemented using Palacos R bone cement The articulation is Oxinium on polyethylene Anesthesia: ANEL Surgeon: Yanick Jin [employer] Registrar #1: Judith Mcginnis Estimated Blood Loss (ml): 40 Pathology: none sent Condition: stable Disposition: PACU Indications for Procedure: The patient's knee is end-stage, and conservative management has failed. The operation of knee replacement has been discussed at length in the office, as well as potential risks and complications. These are inclusive of, but not limited to: Infection, bleeding, scarring, discomfort, stiffness, blood vessel and nerve damage, need for further surgery, failure to relieve symptoms, persistence, recurrence, or worsening of problems, loosening, dislocation, wear, blood clot, pulmonary embolism, , gait dysfunction, stiffness, and other risks as discussed in the office. Patient elects to proceed and the consent form has been signed. Operative Findings: The operative findings are consistent with severe osteoarthritis the left knee Description of Procedure: The patient was seen in the preoperative area, the consent was reviewed and the operative site was marked with a skin marker. The patient verified the procedure and the operative site. An adductor canal pain catheter and an iPACK block were placed by anesthesia in the preoperative area. The patient was then brought to the operating room and positioned on the operating room table in the supine position. Preoperative antibiotics and a gram of tranexamic acid were given intravenously. A general anesthetic was administered by the anesthesia department. Care was taken to make sure that all pressure points were adequately padded. A tourniquet was placed on the upper thigh and the lower extremity was prepped with ChloraPrep and draped in usual sterile fashion. A universal time-out was then performed which confirmed the patient's name, surgical site, ALLERGIES, and consent. The lower extremity was then exsanguinated and tourniquet was inflated to 250 mmHg. A standard anterior midline approach to the knee was performed. The skin and subcutaneous tissue were sharply dissected down to the patellar tendon. A medial parapatellar arthrotomy was then performed. The knee was then extended, the patellar was everted, and the knee was flexed. The infra-patellar fat pad was removed in order to enhance exposure. The anterior horns of both menisci were excised, and a release was performed to the posterior medial aspect of the knee. On gross visual inspection, there was complete loss of articular cartilage in the medial and patellofemoral joint spaces. There was also significant cartilage damage in the lateral compartment. There were multiple periarticular osteophytes globally about the knee which were then removed with a Ronguer. The femoral canal was then opened with the 9.5 mm intramedullary drill. The 8 mm intramedullary claudia was then inserted into the femoral canal with the distal femoral cutting guide set for 5 of valgus. The distal femoral cutting block was then pinned in place. The intramedullary claudia was then removed, and the distal femur was then cut. The cutting block was then removed and the cut was checked for symmetry. The resected bone was then measured to co nfirm the appropriate distal femoral resection. Next, the sizing guide was then placed and set for 3 external rotation based off of the epicondylar axis and Williams's line. Pins were then placed and the drill holes, and the femur was sized with the sizing stylus. The pins were then removed, and the sizing guide was then removed. The spikes of the appropriate size femoral block was then placed into the predrilled holes, and malleted into place. Two 45 mm pins were then placed into the fixation holes on the cutting block. An melva wing was then used to ensure there would be no notching with the anterior cut. The anterior condyles were cut without notching. The anterior chord cut was then performed, followed by the posterior cut, posterior chamfer cut, and the anterior chamfer cut. The collateral ligaments were protected during the entire process. The cutting block was then removed. Any remaining bone and osteophytes were removed from the femur with a Ronguer. Attention was then directed to the tibia. The remaining ACL was removed with a Ronguer, and the tibia was then gently subluxed forward with a large bent knee retractor. Any remaining menisci were excised. The posterior lateral corner was cauterized in order to coagulate the lateral geniculate artery. The extra medullary tibial cutting guide was then placed, set for the appropriate rotation, slope, and depth of resection. The proximal tibia cutting guide was then pinned in place. Proximal tibia was then cut and sized. A curved osteotome was then used to remove any posterior osteophytes from the distal femur. The femoral trial was placed. A narrow saw blade was then used to remove the anterior intracondylar femoral bone. The CR notch trial was then placed. The tibial trial was placed with the appropriate-sized insert. The knee was able to fully extend and flex to 130 and was stable throughout all range of motion. The knee was then extended and the patella was everted. Patella was then measured, and then using an osteotomy guide, the patella was cut at the appropriate level. The patellar component was sized. The patellar drill guide was placed and the patella was drilled. The patella trial was then placed. The knee was then taken through range of motion with the patella trial and the patella tracked normally using the no thumbs technique. The patella trial was then removed. The knee was then flexed and lug holes were drilled through the femoral trial and the femoral trial was then removed. The tibial was then re- exposed, and the tibial broach guide was then pinned in place after it was set for the appropriate rotation to allow for the most coverage without overhang. The tibia was then reamed and broached. The femoral canal was plugged with autologous bone. The cut surfaces of bone were then irrigated with pulsatile lavage. The knee was also irrigated with Irrisept solution. The components were then opened, the cement was mixed. Cement was placed on the backside of the femoral, tibial, and patellar components. Cement was then applied to the tibial surface and pressurized into the surface using finger pressurization technique. The tibial component was then applied and excess cement was removed after it was impacted securely noted to be flush with the cut surface. In similar fashion, the cement was applied to the cut femoral surface, pressurized and using finger pressurization the component was impacted in place. Excess cement was removed. The polyethylene spacer was then implanted and locked into position. Patellar component was then applied in a similar technique and the patellar clamp was used to hold patella in place while the cement hardened. The knee was held in full extension while the cement hardened. Once the cement had fully hardened, the knee was reinspected. Any other cement extrusion was removed the final range of motion testing showed range of motion from 0-130 with excellent stability, both medial and laterally and appropriate alignment of the leg. Patella tracked normally. After the cemented hardened, the tourniquet was released and hemostasis was obtained. A second gram of transexamic acid was given intravenously. The knee was again irrigated. The knee was again taken through range of motion and found to be stable throughout all range of motion of 0-130, and the patella tracked normally. The fascia was then closed with 0 Vicryl followed by #2 strata fix suture. The subcutaneous tissue was closed with 3-0 Vicryl and 3-0 strata fix. Exofin glue was used for the skin and placed with the knee in flexion. After the glue had dried, and Optafoam silver impregnated dressing was applied. A lightly compressive dressing was applied using web roll and Otoniel wrap. Patient was then transferred to the stretcher and taken to recovery room in stable condition. Sponge and needle counts were correct. The central supply assistant YAMILET Gonzalez was required due the complexity surgery and the need for a skilled collections assistant. She assisted in positioning, draping, retraction, and closure of the wound.
[2022-12-11] MEDS ORDERED: ROPIVACAINE 1,100 MG, SODIUM CHLORIDE 0.9% 500 ML 330 ML, EMPTY PAIN BALL 1 EACH MISCELLANE PRN ×4 (09:20→14:47)
--- NOTE | 2022-12-11 09:38 | XR ---
EXAMINATION TYPE: XR knee limited LT DATE OF EXAM: 12/11/2022 9:31 AM INDICATION: Patient age:Female; 67 years old; Reason for study: post left knee arthroplasty; [facility]. COMPARISON: None. TECHNIQUE: The Left knee(s) was examined in frontal and crosstable lateral projections. FINDINGS: Post surgical changes from left knee arthroplasty with distal femoral and proximal tibial components. Hardware appears intact with appropriate alignment. There is associated soft tissue gas and edema. No acute fracture or dislocation. IMPRESSION: Postsurgical changes from left knee arthroplasty. Hardware appears intact with appropriate alignment.
[2022-12-11] MEDS: HYDROmorphone 0.5 MG/0.5 ML SYRINGE IVP PRN ×5 (09:41→22:39)
[2022-12-11] MEDS ORDERED: MAGNESIUM HYDROXIDE 2,400 MG/30 ML CUP PO PRN (09:42)
[2022-12-11] MEDS ORDERED: ONDANSETRON 4 MG/2 ML VIAL IVP PRN (09:42)
[2022-12-11] MEDS ORDERED: NALOXONE 0.4 MG/ML 1 ML VIAL IV PRN (09:42)
[2022-12-11] MEDS ORDERED: HYDROmorphone 0.5 MG/0.5 ML SYRINGE IVP PRN ×2 (09:42)
[2022-12-11] MEDS ORDERED: HYDROcodone/APAP 7.5-325MG 1 EACH TAB PO PRN ×2 (09:44)
[2022-12-11] MEDS ORDERED: SODIUM CHLORIDE 0.9% 1,000 ML IV ONE ×2 (10:16)
[2022-12-11 10:28] LABS: Glucose,Whole Blood 164 mg/dL (70-110)
[2022-12-11] MEDS ORDERED: hydrALAZINE HCL 20 MG/ML 1 ML VIAL IVP ONE (11:52)
--- NOTE | 2022-12-11 13:45 | P.ANPRN ---
Procedure Note - Anesthesia - Nerve Block Performed Left Trina Single Date of Procedure: 12/11/22 Procedure Start Time: 06:45 Procedure Stop Time: 06:51 Indication: Acute Post-Operative Pain, Requested by Surgeon Sedation Type: Sedate with meaningful contact maintained Preparation: Sterile Prep Position: Supine Catheter: None Needle Types: Facet Needle Gauge: 21 Ultrasound used to visualize needle placement: Yes Ultrasound used to observe medication spread: Yes Injectate: 0.5% Ropivacaine (see comment for volume) (15 mls+10 mlsNS+4 mgs of Decadron) Blood Aspirated: No Pain Paresthesia on Injection Noted: No Resistance on Injection: Normal Image Stored and Saved: Yes Events: Uneventful and Well Tolerated
--- NOTE | 2022-12-11 13:46 | P.ANPRN ---
Procedure Note - Anesthesia - Nerve Block Performed Left Adductor Canal Infusion Date of Procedure: 12/11/22 Procedure Start Time: 06:52 Procedure Stop Time: 06:59 Indication: Acute Post-Operative Pain, Requested by Surgeon Sedation Type: Sedate with meaningful contact maintained Preparation: Sterile Prep, Sterile Dressing Position: Supine Catheter: Indwelling Needle Gauge: 18 Ultrasound used to visualize needle placement: Yes Ultrasound used to observe medication spread: Yes Injectate: 0.5% Ropivacaine (see comment for volume) (15 mls+10 mls of NS) Blood Aspirated: No Pain Paresthesia on Injection Noted: No Resistance on Injection: Normal Image Stored and Saved: Yes
[2022-12-11] MEDS ORDERED: NON FORMULARY DRUG (Dulaglutide [Trulicity] 0.75 MG/0.5 ML Each) SQ SCH (15:00)
[2022-12-11 16:50] LABS: Glucose,Whole Blood 208 mg/dL (70-110)
[2022-12-11] MEDS: SODIUM CHLORIDE 0.9% 1,000 ML IV SCH ×2 (20:39→23:45)
[2022-12-11 20:40] LABS: Glucose,Whole Blood 213 mg/dL (70-110)
[2022-12-11] MEDS: ASPIRIN 325 MG TAB PO SCH (20:44)
--- NOTE | 2022-12-11 20:58 | P.CONS ---
History of Present Illness - Reason for Consult Consult date: 12/11/22 Medical management Requesting physician: Yanick Jin - Chief Complaint Left knee surgery - History of Present Illness Very pleasant 67-year-old patient who follows with Dr. Lozada. Chronic stable medical conditions include , GERD, hypertension, hyperlipidemia, hypothyroid, hiatal hernia, gastric stricture with dysphagia with dilatation, unilateral left kidney. At gastric bypass about 18 years ago. Had undergone right nephrectomy for congenital defect. Patient is undergoing left total knee arthroplasty. Pain control. Postprocedure no nausea vomiting. No chest pain no shortness of breath. Laying in bed. Review of systems: GEN.: None EYES: None HEENT: None NECK: None RESPIRATORY: None CARDIOVASCULAR: None GASTROINTESTINAL: None GENITOURINARY: None MUSCULOSKELETAL: Joint pains LYMPHATICS: None HEMATOLOGICAL: None PSYCHIATRY: None NEUROLOGICAL: None Social history: No smoking or alcohol. . Physical examination: VITAL SIGNS: 98.4, 80, 16, 145/83, 99% on 2 L GENERAL: BMI 44, laying in bed awake comfortable. EYES: Pupils equal. Conjunctiva normal. HEENT: External appearance of nose and ears normal, oral cavity grossly normal. NECK: JVD not raised; masses not palpable. HEART: First and second heart sounds are normal; no edema. LUNGS: Respiratory rate normal; clear to auscultation. ABDOMEN: Soft, nontender, liver spleen not palpable, no masses palpable. PSYCH: Alert and oriented x3; mood and affect normal. MUSCULOSKELETAL:No Clubbing/cyanosis;muscles-grossly intact. Dressing over the left knee. OA. NEUROLOGICAL: Cranial nerves grossly intact; no facial asymmetry, power and sensation grossly intact. LYMPHATICS: No lymph nodes palpable in the axilla and neck INVESTIGATIONS, reviewed in the clinical context: Labs from 12/01/2022: White count 7.2 hemoglobin 14.8 platelets 165 sodium 145 potassium 4.4 BUN 22.2 creatinine 1.1 Assessment and plan: -Left total knee arthroplasty. Pain control. Aspirin for DVT prophylaxis. -Hyperlipidemia Lipitor 10 mg a day -Diabetes mellitus type 2 Follow Accu-Cheks ascites). Trulicity. -Hypothyroid Synthroid 200 g a day -Essential hypertension Cozaar 25 mg a day -Depression/anxiety otherwise specified Wellbutrin XL. -Morbid obesity BMI 44. Prior history of gastric bypass over 18 years ago. Weight loss measures. Care was discussed the patient. Questions answered. Follow Accu-Cheks and sliding scale. Thank you Dr. Jin Past Medical History Past Medical History: Diabetes Mellitus, GERD/Reflux, GI Bleed, Hyperlipidemia, Hypertension, Renal Disease, Thyroid Disorder Additional Past Medical History / Comment(s): Hiatal hernia, diverticulitis w/ lower GI bleed, gastric stricture/dysphagia w/ dilation, gastric benign polyp, NIDDM type II-no longer on meds since wt loss, GI bleed in "old stomach" (hx gastric bypass, GI bleed R/T stomach that is not used). HAS ONLY LEFT KIDNEY History of Any Multi-Drug Resistant Organisms: None Reported Past Surgical History: Adenoidectomy, Bariatric Surgery, Bowel Resection, Breast Surgery, Cholecystectomy, Hernia Repair, Hysterectomy, Tonsillectomy, Tubal Ligation Additional Past Surgical History / Comment(s): R nephrectomy(congenital defect)/ureterectomy, thyroidectomy, Immanuel en Y gastric bypass, EGD with dilation, colonoscopy, hysteroscopy/D&C x2, Rt breast benign biopsy Past Anesthesia/Blood Transfusion Reactions: Previous Problems w/ Anesthesia, Motion Sickness, Postoperative Nausea & Vomiting (PONV) Additional Past Anesthesia/Blood Transfusion Reaction / Comm: Hard time awakening from anesthesia-" TAKES LONGER TO WAKE UP" Past Psychological History: Anxiety Additional Psychological History / Comment(s): .* Smoking Status: Former smoker Past Alcohol Use History: None Reported Additional Past Alcohol Use History / Comment(s): Pt was a light smoker from 1973 until 1984-3 cigarettes a day. Past Drug Use History: None Reported Additional Drug Use History / Comment(s): . - Past Family History Father Family Medical History: Cancer Additional Family Medical History / Comment(s): Lung cancer. Mother Family Medical History: Cancer Additional Family Medical History / Comment(s): Breast cancer. Sister(s) Family Medical History: Cancer Additional Family Medical History / Comment(s): 2 SISTERS HAD BREAST CANCER, 1 HAS BLADDER CANCER. Brother(s) Family Medical History: Cancer Additional Family Medical History / Comment(s): Brother is living. He had a CO at the age of 50yrs. Lung cancer. Medications and Allergies Home Medications Medication Instructions Recorded Confirmed Type buPROPion XL [Wellbutrin XL] 300 mg PO DAILY 07/29/18 12/11/22 History Levothyroxine Sodium [Synthroid] 200 mcg PO DAILY 04/28/20 12/11/22 History Atorvastatin [Lipitor] 10 mg PO DAILY 03/09/21 12/11/22 History Losartan Potassium [Cozaar] 25 mg PO DAILY 03/09/21 12/11/22 History hydroCHLOROthiazide 12.5 mg PO DAILY 03/09/21 12/11/22 History Cetirizine HCl [Zyrtec] 10 mg PO DAILY PRN 12/07/22 12/11/22 History Dulaglutide [Trulicity] 0.75 mg SQ Q7D 12/07/22 12/11/22 History Sucralfate [Carafate] 1 gm PO BID 12/07/22 12/11/22 History polyethylene glycoL 3350 [Miralax] 17 gm PO DAILY 12/07/22 12/11/22 History Aspirin 325 mg PO BID #60 tab 12/11/22 Rx HYDROcodone/APAP 7.5-325MG [[place] 1 - 2 tab PO Q6H PRN #32 tab 12/11/22 Rx 7.5-325] Sennosides [Senokot] 2 tab PO DAILY PRN #60 tablet 12/11/22 Rx Allergies Allergy/AdvReac Type Severity Reaction Status Date / Time prednisone Allergy Rash/Hives/ Verified 12/11/22 06:06 swelling Physical Exam Vitals: Vital Signs Temp Pulse Pulse Resp BP BP BP 12/11/22 19:59 98.1 F 87 16 155/83 12/11/22 14:30 98.4 F 80 16 145/83 12/11/22 14:00 72 16 160/70 12/11/22 13:00 74 16 158/76 12/11/22 12:30 65 16 146/88 12/11/22 12:00 71 16 152/69 12/11/22 11:30 68 16 177/80 12/11/22 11:00 64 16 168/83 12/11/22 10:30 64 16 164/72 12/11/22 10:07 67 16 162/76 12/11/22 09:52 64 16 120/56 12/11/22 09:37 63 156/68 12/11/22 09:22 61 18 129/59 12/11/22 09:07 96.8 F L 71 16 117/58 12/11/22 07:05 72 16 167/72 12/11/22 06:06 98 F 72 16 148/66 Pulse Ox 12/11/22 19:59 96 12/11/22 14:30 99 12/11/22 14:00 96 12/11/22 13:00 96 12/11/22 12:30 97 12/11/22 12:00 96 12/11/22 11:30 96 12/11/22 11:00 95 12/11/22 10:30 96 12/11/22 10:07 97 12/11/22 09:52 96 12/11/22 09:37 97 12/11/22 09:22 98 12/11/22 09:07 95 12/11/22 07:05 98 12/11/22 06:06 95 Intake and Output 12/11/22 12/11/22 12/11/22 06:59 14:59 22:59 Intake Total 200 1401 480 Output Total 240 Balance 200 1161 480 Intake: IV 200 1401 Oral 480 Output: Urine 200 Estimated Blood Loss 40 Other: # Voids 2 Weight 114.4 kg 114.4 kg Results Labs: Abnormal Lab Results - Last 24 Hours (Table) 12/11/22 12/11/22 12/11/22 Range/Units 06:19 10:25 16:49 POC Glucose (mg/dL) 115 H 164 H 208 H (70-110) mg/dL 12/11/22 Range/Units 20:38 POC Glucose (mg/dL) 213 H (70-110) mg/dL
[2022-12-11] MEDS ORDERED: SENNOSIDES-DOCUSATE SODIUM 1 EACH TAB PO SCH (21:00)
[2022-12-12] MEDS: HYDROmorphone 0.5 MG/0.5 ML SYRINGE IVP PRN (02:42)
[2022-12-12 06:02] LABS: Glucose,Whole Blood 131 mg/dL (70-110)
[2022-12-12] MEDS ORDERED: LEVOTHYROXINE 100 MCG TAB PO SCH (06:30)
[2022-12-12] MEDS: LACTATED RINGERS 1,000 ML IV SCH (06:53)
--- NOTE | 2022-12-12 07:28 | P.PN ---
Progress Note - Text Progress Note Date: 12/12/22 The patient is doing well status post total knee replacement. Pain is well con trolled by a combination of local anesthetic infusion through the adductor canal catheter and oral analgesics. There are no signs of infection around the catheter skin entry site. The local anesthetic infusion will be continued as per protocol.
[2022-12-12 08:58] VITALS: BP 121/78; PULSE 80; TEMP 98.5
[2022-12-12] MEDS ORDERED: LOSARTAN 25 MG TAB PO SCH (09:00)
[2022-12-12] MEDS ORDERED: buPROPion XL 300 MG TAB.ER.24H PO SCH (09:00)
[2022-12-12] MEDS ORDERED: ATORVASTATIN 10 MG TAB PO SCH (09:00)
[2022-12-12] MEDS ORDERED: polyethylene glycoL 3350 17 GM POWD.PACK PO SCH (09:00)
[2022-12-12] MEDS: ASPIRIN 325 MG TAB PO SCH (09:33)
[2022-12-12] MEDS: SODIUM CHLORIDE 0.9% 1,000 ML IV SCH (10:10)
[2022-12-12 10:15] VITALS: RESP 20
--- NOTE | 2022-12-12 11:03 | P.DS ---
Providers Expected date of discharge: 12/12/22 Attending physician: Yanick Jin Consults: 12/11/22 09:42 Consult Physician Routine Consulting Provider: Conor Renteria Consult Reason/Comments: medical management Do you want consulting provider notified?: Yes Primary care physician: Pal Lozada - Discharge Diagnosis(es) (1) Osteoarthritis of left knee Current Visit: Yes Status: Acute (2) S/P total knee arthroplasty Current Visit: Yes Status: Acute Hospital Course: This is a 67-year-old female with known history of degenerative arthritis of the left knee. The patient presented for evaluation as an outpatient. After discussion and consideration patient elects to proceed with total knee arthroplasty. The patient is seen preoperatively by Dr. Jin and medically cleared for surgery by their primary care physician. Patient is admitted to [facility] on 12/11/2022 for total knee arthroplasty. The procedure is performed without complication or sequelae. The patient is doing well postoperatively. Labs and vital signs are stable on day of discharge. On day of discharge patient's knee incision is healing well. There is minimal erythema. There is no drainage noted at this time. There is minimal soft tissue swelling to the knee. Patient has full foot and ankle motion without difficulty or pain. Calf is soft and nontender to palpation. Neurovascular status to the left lower extremity is intact. Patient is discharged home in good condition. Please see med rec for accurate list of home medications. Plan - Discharge Summary Discharge Rx Participant: Yes New Discharge Prescriptions: New Aspirin 325 mg PO BID #60 tab HYDROcodone/APAP 7.5-325MG [[place] 7.5-325] 1 - 2 tab PO Q6H PRN #32 tab PRN Reason: Pain Sennosides [Senokot] 2 tab PO DAILY PRN #60 tablet PRN Reason: Constipation No Action buPROPion XL [Wellbutrin XL] 300 mg PO DAILY Levothyroxine Sodium [Synthroid] 200 mcg PO DAILY Losartan Potassium [Cozaar] 25 mg PO DAILY Atorvastatin [Lipitor] 10 mg PO DAILY Cetirizine HCl [Zyrtec] 10 mg PO DAILY PRN PRN Reason: Allergy Symptoms Sucralfate [Carafate] 1 gm PO BID hydroCHLOROthiazide 12.5 mg PO DAILY polyethylene glycoL 3350 [Miralax] 17 gm PO DAILY Dulaglutide [Trulicity] 0.75 mg SQ Q7D Discharge Medication List buPROPion XL [Wellbutrin XL] 300 mg PO DAILY 07/29/18 [History] Levothyroxine Sodium [Synthroid] 200 mcg PO DAILY 04/28/20 [History] Atorvastatin [Lipitor] 10 mg PO DAILY 03/09/21 [History] Losartan Potassium [Cozaar] 25 mg PO DAILY 03/09/21 [History] hydroCHLOROthiazide 12.5 mg PO DAILY 03/09/21 [History] Cetirizine HCl [Zyrtec] 10 mg PO DAILY PRN 12/07/22 [History] Dulaglutide [Trulicity] 0.75 mg SQ Q7D 12/07/22 [History] Sucralfate [Carafate] 1 gm PO BID 12/07/22 [History] polyethylene glycoL 3350 [Miralax] 17 gm PO DAILY 12/07/22 [History] Aspirin 325 mg PO BID #60 tab 12/11/22 [Rx] HYDROcodone/APAP 7.5-325MG [[place] 7.5-325] 1 - 2 tab PO Q6H PRN #32 tab 12/11/22 [Rx] Sennosides [Senokot] 2 tab PO DAILY PRN #60 tablet 12/11/22 [Rx] Follow up Appointment(s)/Referral(s): [facility] [NON-STAFF] - 1 Week (Call [facility] when you get home and they will deliver your cpm) [facility] [NON-STA[facility]] - 1 Week ([facility] will call [facility] to arrange a visit) Yanick Jin DO [Doctor of Osteopathic Medicine] - 12/25/22 1:00 pm Activity/Diet/Wound Care/Special Instructions: Weightbearing as tolerated with a walker. CPM 5-6h daily as tolerated. Leave dressing intact. Dressing may be removed by home care nurse or by patient in 7 days. Then change dressing twice daily until follow up. May shower with initial dressing intact and after removal. If dressing become saturated, please remove. Recommend use of compression stockings daily until follow up to help prevent swelling and blood clots. May remove at night before sleeping. Please take aspirin 325mg twice daily for 30 days to prevent blood clots. Please follow up with [facility] and call with any questions or concerns, . Discharge Disposition: HOME WITH HOME HEALTH SERVICES
[2022-12-12 11:22] LABS: Glucose,Whole Blood 127 mg/dL (70-110)
[2022-12-12 11:37] LABS: Basophils # (A) 0.03 X 10*3/uL (0.00-0.10); Basophils % (A) 0.3 %; Eosinophils # (A) 0.07 X 10*3/uL (0.04-0.35); Eosinophils % (A) 0.7 %; HCT 37.9 % (37.2-46.3); HGB 12.4 d/dL (12.0-15.0); Lymphocytes # (A) 1.01 X 10*3/uL (0.90-5.00); Lymphocytes % (A) 10.5 %; MCH 30.1 pg (27.0-32.0); MCHC 32.7 d/dL (32.0-37.0); Mean Platelet Volume 11.5 FL (9.5-12.2); Monocytes # (A) 0.56 X 10*3/uL (0.20-1.00); Monocytes % (A) 5.8 %; NRBC Per 100 WBC 0 X 10*3/uL (0.00-0.01); Neutrophils # (A) 7.95 X 10*3/uL (1.80-7.70); Neutrophils % (A) 82.4 %; Platelet Count 126 X 10*3/uL (140-440); RBC 4.12 X 10*6/uL (4.10-5.20); RDW 15.5 % (11.5-14.5); WBC 9.65 X 10*3/uL (4.50-10.00)
--- NOTE | 2022-12-12 15:49 | P.PN ---
Progress Note - Text Progress Note Date: 12/12/22 - Chief Complaint Left knee surgery - History of Present Illness Very pleasant 67-year-old patient who follows with Dr. Lozada. Chronic stable medical conditions include , GERD, hypertension, hyperlipidemia, hypothyroid, hiatal hernia, gastric stricture with dysphagia with dilatation, unilateral left kidney. At gastric bypass about 18 years ago. Had undergone right nephrectomy for congenital defect. Patient is undergoing left total knee arthroplasty. Pain control. Postprocedure no nausea vomiting. No chest pain no shortness of breath. Laying in bed. December 12: Sitting up in a recliner. Did walk with therapy earlier. Had hunter n overnight. Better this morning. He reached some breakfast. No nausea vomiting. No dizziness. Discussed. Blood pressure medications discussed. Current medications reviewed Social history: No smoking or alcohol. . Physical examination: VITAL SIGNS: 98.5, 80, 18, 121/78, 92% room air GENERAL: BMI 44, up in a recliner. EYES: Pupils equal. Conjunctiva normal. HEENT: External appearance of nose and ears normal, oral cavity grossly normal. NECK: JVD not raised; masses not palpable. HEART: First and second heart sounds are normal; no edema. LUNGS: Respiratory rate normal; clear to auscultation. ABDOMEN: Soft, nontender, liver spleen not palpable, no masses palpable. PSYCH: Alert and oriented x3; mood and affect normal. MUSCULOSKELETAL:No Clubbing/cyanosis;muscles-grossly intact. Dressing over the left knee. OA. INVESTIGATIONS, reviewed in the clinical context: December 12: White count 9.6 hemoglobin 12.4 platelets 126 Labs from 12/01/2022: White count 7.2 hemoglobin 14.8 platelets 165 sodium 145 potassium 4.4 BUN 22.2 creatinine 1.1 Assessment and plan: -Left total knee arthroplasty. Pain control. Aspirin for DVT prophylaxis. -Hyperlipidemia Lipitor 10 mg a day -Diabetes mellitus type 2 Follow Accu-Cheks ascites). Trulicity. -Hypothyroid Synthroid 200 g a day -Essential hypertension Cozaar 25 mg a day. Patient to hold off hydrochlorothiazide for now. Discussed when to resume. Daily blood pressure check -Depression/anxiety otherwise specified Wellbutrin XL. -Morbid obesity BMI 44. Prior history of gastric bypass over 18 years ago. Weight loss measures. Discussed with the patient. Questions answered. Thank you Dr. Jin Past Medical History Past Medical History: Diabetes Mellitus, GERD/Reflux, GI Bleed, Hyperlipidemia, Hypertension, Renal Disease, Thyroid Disorder Additional Past Medical History / Comment(s): Hiatal hernia, diverticulitis w/ lower GI bleed, gastric stricture/dysphagia w/ dilation, gastric benign polyp, NIDDM type II-no longer on meds since wt loss, GI bleed in "old stomach" (hx gastric bypass, GI bleed R/T stomach that is not used). HAS ONLY LEFT KIDNEY History of Any Multi-Drug Resistant Organisms: None Reported Past Surgical History: Adenoidectomy, Bariatric Surgery, Bowel Resection, Breast Surgery, Cholecystectomy, Hernia Repair, Hysterectomy, Tonsillectomy, Tubal Ligation Additional Past Surgical History / Comment(s): R nephrectomy(congenital defect )/ureterectomy, thyroidectomy, Immanuel en Y gastric bypass, EGD with dilation, colonoscopy, hysteroscopy/D&C x2, Rt breast benign biopsy Past Anesthesia/Blood Transfusion Reactions: Previous Problems w/ Anesthesia, Motion Sickness, Postoperative Nausea & Vomiting (PONV) Additional Past Anesthesia/Blood Transfusion Reaction / Comm: Hard time awakening from anesthesia-" TAKES LONGER TO WAKE UP" Past Psychological History: Anxiety Additional Psychological History / Comment(s): .* Smoking Status: Former smoker Past Alcohol Use History: None Reported Additional Past Alcohol Use History / Comment(s): Pt was a light smoker from 1973 until 1984-3 cigarettes a day. Past Drug Use History: None Reported Additional Drug Use History / Comment(s): . - Past Family History Father Family Medical History: Cancer Additional Family Medical History / Comment(s): Lung cancer. Mother Family Medical History: Cancer Additional Family Medical History / Comment(s): Breast cancer. Sister(s) Family Medical History: Cancer Additional Family Medical History / Comment(s): 2 SISTERS HAD BREAST CANCER, 1 HAS BLADDER CANCER. Brother(s) Family Medical History: Cancer Additional Family Medical History / Comment(s): Brother is living. He had a SD at the age of 50yrs. Lung cancer. Medications and Allergies Home Medications Medication Instructions Recorded Confirmed Type buPROPion XL [Wellbutrin XL] 300 mg PO DAILY 07/29/18 12/11/22 History Levothyroxine Sodium [Synthroid] 200 mcg PO DAILY 04/28/20 12/11/22 History Atorvastatin [Lipitor] 10 mg PO DAILY 03/09/21 12/11/22 History Losartan Potassium [Cozaar] 25 mg PO DAILY 03/09/21 12/11/22 History hydroCHLOROthiazide 12.5 mg PO DAILY 03/09/21 12/11/22 History Cetirizine HCl [Zyrtec] 10 mg PO DAILY PRN 12/07/22 12/11/22 History Dulaglutide [Trulicity] 0.75 mg SQ Q7D 12/07/22 12/11/22 History Sucralfate [Carafate] 1 gm PO BID 12/07/22 12/11/22 History polyethylene glycoL 3350 [Miralax] 17 gm PO DAILY 12/07/22 12/11/22 History Aspirin 325 mg PO BID #60 tab 12/11/22 Rx HYDROcodone/APAP 7.5-325MG [[place] 1 - 2 tab PO Q6H PRN #32 tab 12/11/22 Rx 7.5-325] Sennosides [Senokot] 2 tab PO DAILY PRN #60 tablet 12/11/22 Rx Allergies Allergy/AdvReac Type Severity Reaction Status Date / Time prednisone Allergy Rash/Hives/ Verified 12/11/22 06:06 swelling
== END 2022-12-12 13:57 | disposition home health service (06) ==
LOC: OR 05:33 → 4SSUR 09:07 → OR 12-12 13:57
PROVIDERS: ATTEND Orthopaedic Surgery
DX: M17.12 Unilateral primary osteoarthritis, left knee (principal); K21.9 Gastro-esophageal reflux disease without esophagitis; I10 Essential (primary) hypertension; E78.5 Hyperlipidemia, unspecified; E11.9 Type 2 diabetes mellitus without complications; E03.9 Hypothyroidism, unspecified; F32.A Depression, unspecified; F41.9 Anxiety disorder, unspecified; K44.9 Diaphragmatic hernia without obstruction or gangrene; Z90.5 Acquired absence of kidney; Z98.84 Bariatric surgery status; Z90.89 Acquired absence of other organs; Z90.49 Acquired absence of other specified parts of digestive tract; Z90.710 Acquired absence of both cervix and uterus; Z87.891 Personal history of nicotine dependence; Z86.59 Personal history of other mental and behavioral disorders; Z80.1 Family history of malignant neoplasm of trachea, bronchus and lung; Z80.3 Family history of malignant neoplasm of breast; Z79.890 Hormone replacement therapy; Z79.899 Other long term (current) drug therapy
CPT/HCPCS: 73560; 27447; 64999; 64448; J2250; J0360; J0690 ×2; J2405; J2795; J1170; 85025

== ENCOUNTER 2022-12-15 06:51 | Inpatient (IN) | payer MEDICARE ==
--- NOTE | 2022-12-15 07:13 | ED ---
GI Bleed HPI - General Chief complaint: GI Bleed Stated complaint: GI bleed Time Seen by Provider: 12/15/22 06:55 Source: patient, EMS, RN notes reviewed Mode of arrival: EMS Limitations: no limitations - History of Present Illness Initial comments: This is a 67-year-old female who presents to the emergency department for a GI bleed. States that at about 5:30 this morning she felt like she needed to have a bowel movement. She went to go sit on the toilet, and states that there was bright red blood mixed in with her stool. She had another 2 bowel movements, and states that it essentially turned into just blood without stool mixed in. She has minor abdominal discomfort. Denies any nausea or vomiting. She does not currently feel dizzy or lightheaded. This happened to her about a year ago and she was told that it was related to diverticulitis. Not taking any blood thinners. Denies any fevers, chills, sore throat, cough, dyspnea, chest pain, palpitations, nausea, vomiting, diarrhea, back pain, or headaches. MD complaint: gross hematochezia - Related Data Home Medications Medication Instructions Recorded Confirmed buPROPion XL [Wellbutrin XL] 300 mg PO DAILY 07/29/18 12/15/22 Levothyroxine Sodium [Synthroid] 200 mcg PO DAILY 04/28/20 12/15/22 Atorvastatin [Lipitor] 10 mg PO DAILY 03/09/21 12/15/22 hydroCHLOROthiazide 12.5 mg PO DAILY 03/09/21 12/15/22 Cetirizine HCl [Zyrtec] 10 mg PO DAILY PRN 12/07/22 12/15/22 Dulaglutide [Trulicity] 0.75 mg SQ MO 12/07/22 12/15/22 Sucralfate [Carafate] 1 gm PO BID 12/07/22 12/15/22 polyethylene glycoL 3350 [Miralax] 17 gm PO DAILY 12/07/22 12/15/22 Losartan [Cozaar] 50 mg PO DAILY 12/15/22 12/15/22 Previous Rx's Medication Instructions Recorded Aspirin 325 mg PO BID #60 tab 12/11/22 HYDROcodone/APAP 7.5-325MG [[place] 1 - 2 tab PO Q6H PRN #32 tab 12/11/22 7.5-325] Sennosides [Senokot] 2 tab PO DAILY PRN #60 tablet 12/11/22 Allergies Allergy/AdvReac Type Severity Reaction Status Date / Time prednisone Allergy Rash/Hives/ Verified 12/15/22 12:36 swelling Review of Systems ROS Statement: Those systems with pertinent positive or pertinent negative responses have been documented in the HPI. ROS Other: All systems not noted in ROS Statement are negative. Past Medical History Past Medical History: Diabetes Mellitus, GERD/Reflux, GI Bleed, Hyperlipidemia, Hypertension, Renal Disease, Thyroid Disorder Additional Past Medical History / Comment(s): Hiatal hernia, diverticulitis w/ lower GI bleed, gastric stricture/dysphagia w/ dilation, gastric benign polyp, NIDDM type II-no longer on meds since wt loss, GI bleed in "old stomach" (hx gastric bypass, GI bleed R/T stomach that is not used). HAS ONLY LEFT KIDNEY History of Any Multi-Drug Resistant Organisms: None Reported Past Surgical History: Joint Replacement Additional Past Surgical History / Comment(s): R nephrectomy(congental defect) /ureterectomy, thyroidectomy, Immanuel en Y gastric bypass EGD with dilation, colonoscopy, hysteroscopy D&C x2, Rt breast benign biopsy; colon resection 06/17/2020. Past Anesthesia/Blood Transfusion Reactions: Previous Problems w/ Anesthesia, Motion Sickness, Postoperative Nausea & Vomiting (PONV) Additional Past Anesthesia/Blood Transfusion Reaction / Comment(s): Hard time awakening from anesthesia-" TAKES LONGER TO WAKE UP" Past Psychological History: Anxiety Smoking Status: Former smoker Past Alcohol Use History: None Reported Past Drug Use History: None Reported - Past Family History Father Family Medical History: Cancer Additional Family Medical History / Comment(s): Lung cancer. Mother Family Medical History: Cancer Additional Family Medical History / Comment(s): Breast cancer. Sister(s) Family Medical History: Cancer Additional Family Medical History / Comment(s): 2 SISTERS HAD BREAST CANCER, 1 HAS BLADDER CANCER. Brother(s) Family Medical History: Cancer Additional Family Medical History / Comment(s): Brother is living. He had a AK at the age of 50yrs. Lung cancer. General Exam Limitations: no limitations General appearance: alert, in no apparent distress Head exam: Present: atraumatic, normocephalic, normal inspection Respiratory exam: Present: normal lung sounds bilaterally. Absent: respiratory distress, wheezes, rales, rhonchi, stridor Cardiovascular Exam: Present: regular rate, normal rhythm, normal heart sounds. Absent: systolic murmur, diastolic murmur, rubs, gallop, clicks GI/Abdominal exam: Present: soft, normal bowel sounds. Absent: distended, tenderness, guarding, rebound, rigid Rectal exam: Present: bloody stool Neurological exam: Present: alert, oriented X3, CN II-XII intact Psychiatric exam: Present: normal affect, normal mood Skin exam: Present: warm, dry, intact, normal color. Absent: rash Course Vital Signs 12/15/22 12/15/22 12/15/22 06:53 10:27 10:58 Temperature 99.2 F Pulse Rate 104 H 89 Respiratory 18 18 Rate Blood Pressure 151/89 111/62 75/56 O2 Sat by Pulse 98 99 Oximetry 12/15/22 12/15/22 12/15/22 13:04 13:21 14:21 Temperature 98.9 F Pulse Rate 81 76 85 Respiratory 18 Rate Blood Pressure 92/68 101/71 145/74 O2 Sat by Pulse 95 Oximetry Medical Decision Making - Medical Decision Making This is a 67-year-old female who presents to the emergency department for a GI bleed. Was pt. sent in by a medical professional or institution? @ -No Did you speak to anyone other than the patient for history? @ -No Did you review nursing and triage notes? @ -Yes, and I agree, it is accurate with regards to the patient's symptoms. Were old charts reviewed? @ -No Differential Diagnosis? @ -Differential GI Bleed: Esophageal varices, aortoenteric fistula, Alesha-Morales, gastritis, peptic ulcer disease, diverticulosis, inflammatory bowel disease, hemorrhoids, fissure, colitis, malignancy, Meckels diverticulum, this is not meant to be an all- inclusive list. EKG interpreted by me (3pts min.)? @ -EKG interpreted by me demonstrating the following: Sinus rhythm. Ventricular rate 85 bpm, ME interval 172 ms, QRS duration 104 ms, QTC 429 ms. X-rays interpreted by me (1pt min.)? @ -Not obtained CT interpreted by me (1pt min.)? @ -CT scan of the abdomen and pelvis obtained. My interpretation identifies diverticulosis. U/S interpreted by me (1pt. min.)? @ -Not obtained What testing was considered but not performed? (CT, X-rays, U/S, labs)? Why? @ -None What meds were considered but not given? Why? @ -None Did you discuss the management of the patient with other professionals? @ -Yes, Dr. Murray, who accepts the patient for admission. Did you reconcile home meds? @ -No Was smoking cessation discussed for >3mins.? @ -No Was critical care preformed (if so, how long)? @ -No Were there social determinants of health that impacted care today? How? (Homelessness, low income, unemployed, alcoholism, drug addiction, transportation, low edu. Level, literacy, decrease access to med. care, assisted, rehab)? @ -No Was there de-escalation of care discussed even if they declined? (Discuss DNR or withdrawal of care, Hospice)? @ -No What co-morbidities impacted this encounter? (DM, HTN, Smoking, COPD, CAD, Cancer, CVA, Hep., AIDS, mental health diagnosis, sleep apnea, morbid obesity)? @ -DM, GERD, HLD, HTN, morbid obesity Was patient admitted / discharged? @ -Admitted. Lab work obtained and found to be nonactionable with an initial hemoglobin of 12.0. Computed tomography scan of the abdomen and pelvis obtained revealing extensive diverticulosis without evidence for acute diverticulitis. I initially spoke with Dr. Teague, on-call general surgery, who advised transfer to another facility as we do not have GI available. Patient however states that she is established with Dr. Murray, who usually manages her lower GI bleeding. I spoke with Dr. Murray who accepts the patient for admission and advised treating her like a diverticulitis, as this usually stops the bleed ing. Patient admitted to general surgery with medicine listed as consult for medical management. She was started on IV Zosyn. Blood cultures obtained. Undiagnosed new problem with uncertain prognosis? @ -None Drug Therapy requiring intensive monitoring for toxicity (Heparin, Nitro, Insulin, Cardizem)? @ -None Were any procedures done? @ -None Diagnosis/symptom? @ -Lower GI bleed Acute, or Chronic, or Acute on Chronic? @ -Acute Uncomplicated (without systemic symptoms) or Complicated (systemic symptoms)? @ -Uncomplicated Side effects of treatment? @ -None Exacerbation, Progression, or Severe Exacerbation] @ -Not applicable Poses a threat to life or bodily function? @ -No Return precautions reviewed in depth, the patient is instructed to return to the emergency department with any new, worsening, or concerning symptoms. Patient verbalized understanding. This case was discussed in detail with the attending ED physician, Dr. Ellis. Presentation, findings, and treatment plan discussed in detail as well. - Lab Data Result diagrams: 12/15/22 12:40 12/15/22 07:02 Lab Results 12/15/22 12/15/22 12/15/22 Range/Units 06:53 07:02 07:02 WBC 8.7 (3.8-10.6) k/uL RBC 3.93 (3.80-5.40) m/uL Hgb 12.0 (11.4-16.0) gm/dL Hct 36.5 (34.0-46.0) % MCV 92.8 (80.0-100.0) fL MCH 30.4 (25.0-35.0) pg MCHC 32.8 (31.0-37.0) g/dL RDW 14.7 (11.5-15.5) % Plt Count 143 L (150-450) k/uL MPV 8.6 Neutrophils % 79 % Lymphocytes % 10 % Monocytes % 6 % Eosinophils % 3 % Basophils % 0 % Neutrophils # 6.9 (1.3-7.7) k/uL Lymphocytes # 0.9 L (1.0-4.8) k/uL Monocytes # 0.5 (0-1.0) k/uL Eosinophils # 0.3 (0-0.7) k/uL Basophils # 0.0 (0-0.2) k/uL PT 9.7 (9.0-12.0) sec INR 0.9 (<1.2) APTT 23.1 (22.0-30.0) sec Sodium (137-145) mmol/L Potassium (3.5-5.1) mmol/L Chloride (98-107) mmol/L Carbon Dioxide (22-30) mmol/L Anion Gap mmol/L BUN (7-17) mg/dL Creatinine (0.52-1.04) mg/dL Est GFR (CKD-EPI)AfAm (>60 ml/min/1.73 sqM) Est GFR (CKD-EPI)NonAf (>60 ml/min/1.73 sqM) Glucose (74-99) mg/dL Plasma Lactic Acid Fede (0.7-2.0) mmol/L Calcium (8.4-10.2) mg/dL Total Bilirubin (0.2-1.3) mg/dL AST (14-36) U/L ALT (4-34) U/L Alkaline Phosphatase (38-126) U/L Troponin I (0.000-0.034) ng/mL Total Protein (6.3-8.2) g/dL Albumin (3.5-5.0) g/dL Blood Type B Positive Blood Type Recheck B Pos Bld Type Recheck Status No Antibody Screen NEGATIVE Spec Expiration Date 12/18/2022 - 230112/15/22 12/15/22 12/15/22 Range/Units 07:02 07:02 07:02 WBC (3.8-10.6) k/uL RBC (3.80-5.40) m/uL Hgb (11.4-16.0) gm/dL Hct (34.0-46.0) % MCV (80.0-100.0) fL MCH (25.0-35.0) pg MCHC (31.0-37.0) g/dL RDW (11.5-15.5) % Plt Count (150-450) k/uL MPV Neutrophils % % Lymphocytes % % Monocytes % % Eosinophils % % Basophils % % Neutrophils # (1.3-7.7) k/uL Lymphocytes # (1.0-4.8) k/uL Monocytes # (0-1.0) k/uL Eosinophils # (0-0.7) k/uL Basophils # (0-0.2) k/uL PT (9.0-12.0) sec INR (<1.2) APTT (22.0-30.0) sec Sodium 139 (137-145) mmol/L Potassium 3.6 (3.5-5.1) mmol/L Chloride 110 H (98-107) mmol/L Carbon Dioxide 22 (22-30) mmol/L Anion Gap 7 mmol/L BUN 14 (7-17) mg/dL Creatinine 0.90 (0.52-1.04) mg/dL Est GFR (CKD-EPI)AfAm 78 (>60 ml/min/1.73 sqM) Est GFR (CKD-EPI)NonAf 68 (>60 ml/min/1.73 sqM) Glucose 165 H (74-99) mg/dL Plasma Lactic Acid Fede 1.3 (0.7-2.0) mmol/L Calcium 7.5 L (8.4-10.2) mg/dL Total Bilirubin 0.8 (0.2-1.3) mg/dL AST 23 (14-36) U/L ALT 15 (4-34) U/L Alkaline Phosphatase 74 (38-126) U/L Troponin I <0.012 (0.000-0.034) ng/mL Total Protein 5.2 L (6.3-8.2) g/dL Albumin 2.6 L (3.5-5.0) g/dL Blood Type Blood Type Recheck Bld Type Recheck Status Antibody Screen Spec Expiration Date - Radiology Data Radiology results: report reviewed, image reviewed Disposition Clinical Impression: Lower GI bleed Disposition: ADMITTED IP TO THIS HOSP
[2022-12-15 07:14] LABS: Basophils % (A) 0 %; Eosinophils # (A) 0.3 k/uL (0-0.7); Eosinophils % (A) 3 %; HCT 36.5 % (34.0-46.0); Lymphocytes # (A) 0.9 k/uL (1.0-4.8); Lymphocytes % (A) 10 %; MCH 30.4 pg (25.0-35.0); MCHC 32.8 g/dL (31.0-37.0); MCV 92.8 fL (80.0-100.0); Mean Platelet Volume 8.6; Monocytes # (A) 0.5 k/uL (0-1.0); Monocytes % (A) 6 %; Neutrophils # (A) 6.9 k/uL (1.3-7.7); Neutrophils % (A) 79 %; Platelet Count 143 k/uL (150-450); RBC 3.93 m/uL (3.80-5.40); RDW 14.7 % (11.5-15.5); WBC 8.7 k/uL (3.8-10.6)
[2022-12-15 07:21] LABS: INR 0.9 (<1.2); Partial Thromboplastin Time 23.1 sec (22.0-30.0); Prothrombin Time 9.7 sec (9.0-12.0)
[2022-12-15 07:59] LABS: ALT 15 U/L (4-34); AST 23 U/L (14-36); African American GFR (CKD) 78 (>60 ml/min/1.73 sqM); Albumin 2.6 g/dL (3.5-5.0); Alkaline Phosphatase 74 U/L (38-126); Anion Gap 7 mmol/L; Blood Urea Nitrogen 14 mg/dL (7-17); Calcium 7.5 mg/dL (8.4-10.2); Carbon Dioxide 22 mmol/L (22-30); Chloride 110 mmol/L (98-107); Glucose 165 mg/dL (74-99); Non-African American GFR(CKD) 68 (>60 ml/min/1.73 sqM); Potassium 3.6 mmol/L (3.5-5.1); Sodium 139 mmol/L (137-145); Total Bilirubin 0.8 mg/dL (0.2-1.3); Total Protein 5.2 g/dL (6.3-8.2)
[2022-12-15] MEDS ORDERED: ONDANSETRON 4 MG/2 ML VIAL IVP STA (08:04)
--- NOTE | 2022-12-15 09:05 | CT ---
EXAMINATION TYPE: CT abdomen pelvis w con DATE OF EXAM: 12/15/2022 COMPARISON: 07/14/2020 HISTORY: 66-year-old female nonlocalized abdominal pain with GI bleed TECHNIQUE: Contiguous axial scanning of the abdomen and pelvis following administration of 100 ml Iso aria 300 IV contrast. Delayed images through the kidneys and coronal/sagittal reconstructions perform ed. CT DLP: 1813.6 mGycm Automated exposure control for dose reduction was used. FINDINGS: LUNG BASES: Hazy groundglass densities posterior lower lobes, probably atelectasis. There is no pleur al effusion. BOWEL: There is a small hiatal hernia with postoperative change of Yolanda-en-Y gastric bypass. Some of the staple line is included in the hernia. Some chronic small amount of ascites fluid within the heike ia sac, unchanged from 2020. There is some underlying fatty infiltration of the liver. Cholecystectomy clips. Adrenal glands, spleen, and atrophic pancreas show no gross abnormality. Right kidney surgically abse nt. Benign 1.9 cm cortical cyst lateral lower pole left kidney. Additional parapelvic cyst left kidney. N o hydronephrosis. No dilated small bowel, free fluid, or free air. No mesenteric or retroperitoneal lymphadenopathy. Normal appendix. There is some liquid stool within the right hemicolon but also extending into the transverse colon. G eneralized colonic diverticulosis, greatest in the sigmoid colon. Additional liquid stool noted in th e distal colon. There is a staple line from prior resection and re-anastomosis at the mid to distal s igmoid colon. No contrast extravasation is seen within the lumen of the colon. Bladder nondistended. Uterus surgically absent. No abnormal fluid collection in the pelvis or pelvic lymphadenopathy. Bones: Moderate to advanced multilevel spondylotic changes throughout the visualized lower thoracic a nd lumbar spine. IMPRESSION: 1. GENERALIZED COLONIC DIVERTICULOSIS, MOST EXTENSIVE WITHIN THE SIGMOID COLON. THERE IS A STAPLE EDITA E AT THE DISTAL SIGMOID INDICATING PRIOR RESECTION AND RE-ANASTOMOSIS. 2. SCATTERED LIQUID STOOL THROUGHOUT THE COLON COULD REPRESENT DIARRHEAL STATE. NO CONTRAST EXTRAVASA TION SEEN INTO THE LUMEN OF THE COLON. 3. STATUS POST YOLANDA-EN-Y GASTRIC BYPASS. REDEMONSTRATED SMALL HIATAL HERNIA. SOME OF THE STAPLE LINE RELATING TO THE EXCLUDED STOMACH IS LOCATED WITHIN THE HERNIA SAC, UNCHANGED FROM 2020. MILD FREE FLU ID WITHIN THE HERNIA SAC APPEARS TO BE A CHRONIC FINDING WELL, UNCHANGED FROM 2020. 4. POSSIBLE UNDERLYING HEPATIC STEATOSIS. CHOLECYSTECTOMY CLIPS.
[2022-12-15] MEDS ORDERED: SODIUM CHLORIDE 0.9% 1,000 ML IV STA (09:43)
[2022-12-15] MEDS ORDERED: HYDROcodone/APAP 5-325MG 1 EACH TAB PO PRN (10:00)
[2022-12-15] MEDS ORDERED: ONDANSETRON 4 MG/2 ML VIAL IVP PRN (10:00)
[2022-12-15] MEDS ORDERED: NALOXONE 0.4 MG/ML 1 ML VIAL IV PRN (10:00)
[2022-12-15] MEDS ORDERED: MORPHINE SULFATE 4 MG/ML SYRINGE IV PRN (10:00)
[2022-12-15] MEDS ORDERED: PANTOPRAZOLE 40 MG/10 ML VIAL IV SCH (10:15)
[2022-12-15] MEDS: PIPERACILLIN-TAZOBACTAM 3.375 GM in SODIUM CHLORIDE 0.9% 100 ML IVPB SCH ×2 (10:31→17:48)
[2022-12-15] MEDS ORDERED: SODIUM CHLORIDE 0.9% 2,000 ML IV ONE (11:04)
[2022-12-15 11:16] LABS: Basophils % (A) 0 %; Eosinophils # (A) 0.1 k/uL (0-0.7); Eosinophils % (A) 2 %; HCT 49.4 % (34.0-46.0); Lymphocytes # (A) 0.3 k/uL (1.0-4.8); Lymphocytes % (A) 7 %; MCH 29.8 pg (25.0-35.0); MCHC 32.4 g/dL (31.0-37.0); MCV 92.2 fL (80.0-100.0); Mean Platelet Volume 9.1; Monocytes # (A) 0.3 k/uL (0-1.0); Monocytes % (A) 7 %; Neutrophils # (A) 3.6 k/uL (1.3-7.7); Neutrophils % (A) 83 %; RBC 5.35 m/uL (3.80-5.40); RDW 14.8 % (11.5-15.5); WBC 4.4 k/uL (3.8-10.6)
[2022-12-15 12:04] LABS: Platelet Count 70 k/uL (150-450)
[2022-12-15 13:05] LABS: HCT 26.9 % (34.0-46.0); MCH 30.6 pg (25.0-35.0); MCV 92.5 fL (80.0-100.0); Mean Platelet Volume 8.7; RBC 2.91 m/uL (3.80-5.40); RDW 14.7 % (11.5-15.5)
[2022-12-15 13:10] LABS: HGB 8.9 gm/dL (11.4-16.0); Platelet Count 125 k/uL (150-450)
[2022-12-15] MEDS ORDERED: LORATADINE 10 MG TAB PO PRN (14:51)
--- NOTE | 2022-12-15 15:51 | P.GSHP ---
History of Present Illness H&P Date: 12/15/22 CHIEF COMPLAINT: GI bleed HISTORY OF PRESENT ILLNESS: This is a 67-year-old female who presented to the ER due to GI bleed. Patient started passing bright red blood around 5:30 this morning mixed with stool. She reports minor abdominal pain. Patient does have a known history of diverticulitis and diverticular bleed. Computed tomography scan abdomen and pelvis had shown colonic diverticulosis. Patient has history of a sigmoid colectomy and lower anterior resection for sigmoid diverticulitis with recurrent GI bleed in May 2020. Patient does have a history of Immanuel-en-Y gastric bypass. Last colonoscopy was in March 2021 with evidence of severe sigmoid diverticulosis and hemorrhoids. At that time she did have an EGD which had shown gastrojejunal ulcers with recent bleeding. Hemoglobin on admission 12 down to 8.9. She did have some hypotension. She's received fluid boluses with improvement with PPI. Patient had recent knee surgery on 12/11/2022 and had been taking aspirin 325mg bid. Otherwise denies being on any blood thinners. PAST MEDICAL HISTORY: See list. PAST SURGICAL HISTORY: See list. MEDICATIONS: See list. ALLERGIES: See list. SOCIAL HISTORY: No illicit drug use. REVIEW OF SYSTEMS: CONSTITUTIONAL: Denies fever or chills. HEENT: Denies blurred vision, vision changes, or eye pain. Denies hemoptysis ENDOCRINE: Denies heat or cold intolerance. CARDIOVASCULAR: Denies chest pain or pressure. RESPIRATORY: No shortness of breath. GASTROINTESTINAL: Denies abdominal pain. Denies nausea or vomiting. NEURO: Denies history of seizures. PSYCH: No depression or suicidal ideation HEMATOLOGIC: Denies bleeding disorders. LYMPHATIC: The patient denies any lumps and bumps around the neck. GENITOURINARY: Denies any blood in urine or increased urinary frequency. MUSCULOSKELETAL: Denies myalgias. Denies joint swelling. Denies decreased range of motion beyond patients baseline. SKIN: Denies pruitis. Denies rash. PHYSICAL EXAM: VITAL SIGNS: Reviewed GENERAL: Well-developed in no acute distress. HEENT: No sclera icterus. Extraocular movements grossly intact. Moist buccal mucosa. Head is atraumatic, normocephalic. Hears conversational speech. No nasal drainage. NECK: Supple without lymphadenopathy. CHEST: Non-labored respirations and equal bilateral excursions. CARDIOVASCULAR: Palpable 2+ radial pulses. ABDOMEN: Soft. Nondistended. MUSCULOSKELETAL: No clubbing or cyanosis. NEUROLOGIC: No focal or lateralizing signs. Cranial nerves II through XII grossly intact. PSYCH: Appropriate affect. Alert and oriented to person, place and time. SKIN: Well perfused. Good skin turgor. LABORATORY DATA: WBC 8.7 down to 7.0 Hgb 12 down to 8.9 platelets 125 Sodium 139 potassium 3.6 creatinine 0.90 Lactic acid 1.3 IMAGING: Computed tomography scan of pelvis generalized clonic diverticulosis most extensive within the sigmoid colon. Status post Immanuel-en-Y gastric bypass. Redemonstrates small hiatal hernia. ASSESSMENT: 1. Acute GI bleed likely due to diverticular bleed 2. History of diverticulosis 3. History of Immanuel-en-Y gastric bypass 4. History of gastric ulcers PLAN: -Start IV antibiotics for diverticulitis management -Start IV Protonix -continue IV fluids -Hold aspirin -Continue monitor hemoglobin -Continue to monitor for any signs or symptoms of bleeding -No plans for colonoscopy at this time -Continue current liquid diet -Consult medicine service for medical management Physician Lease Picker note has been reviewed by physician. Signing provider agrees with the documented findings, assessment, and plan of care. Past Medical History Past Medical History: Diabetes Mellitus, GERD/Reflux, GI Bleed, Hyperlipidemia, Hypertension, Renal Disease, Thyroid Disorder Additional Past Medical History / Comment(s): Hiatal hernia, diverticulitis w/ lower GI bleed, gastric stricture/dysphagia w/ dilation, gastric benign polyp, NIDDM type II-no longer on meds since wt loss, GI bleed in "old stomach" (hx gastric bypass, GI bleed R/T stomach that is not used). HAS ONLY LEFT KIDNEY History of Any Multi-Drug Resistant Organisms: None Reported Past Surgical History: Joint Replacement Additional Past Surgical History / Comment(s): R nephrectomy(congental defect)/ureterectomy, thyroidectomy, Immanuel en Y gastric bypass EGD with dilation, colonoscopy, hysteroscopy D&C x2, Rt breast benign biopsy; colon resection 06/17/2020. Past Anesthesia/Blood Transfusion Reactions: Previous Problems w/ Anesthesia, Motion Sickness, Postoperative Nausea & Vomiting (PONV) Additional Past Anesthesia/Blood Transfusion Reaction / Comment(s): Hard time awakening from anesthesia-" TAKES LONGER TO WAKE UP" Past Psychological History: Anxiety Smoking Status: Former smoker Past Alcohol Use History: None Reported Past Drug Use History: None Reported - Past Family History Father Family Medical History: Cancer Additional Family Medical History / Comment(s): Lung cancer. Mother Family Medical History: Cancer Additional Family Medical History / Comment(s): Breast cancer. Sister(s) Family Medical History: Cancer Additional Family Medical History / Comment(s): 2 SISTERS HAD BREAST CANCER, 1 HAS BLADDER CANCER. Brother(s) Family Medical History: Cancer Additional Family Medical History / Comment(s): Brother is living. He had a OK at the age of 50yrs. Lung cancer. Medications and Allergies Home Medications Medication Instructions Recorded Confirmed Type buPROPion XL [Wellbutrin XL] 300 mg PO DAILY 07/29/18 12/15/22 History Levothyroxine Sodium [Synthroid] 200 mcg PO DAILY 04/28/20 12/15/22 History Atorvastatin [Lipitor] 10 mg PO DAILY 03/09/21 12/15/22 History hydroCHLOROthiazide 12.5 mg PO DAILY 03/09/21 12/15/22 History Cetirizine HCl [Zyrtec] 10 mg PO DAILY PRN 12/07/22 12/15/22 History Dulaglutide [Trulicity] 0.75 mg SQ MO 12/07/22 12/15/22 History Sucralfate [Carafate] 1 gm PO BID 12/07/22 12/15/22 History polyethylene glycoL 3350 [Miralax] 17 gm PO DAILY 12/07/22 12/15/22 History Aspirin 325 mg PO BID #60 tab 12/11/22 12/15/22 Rx HYDROcodone/APAP 7.5-325MG [[place] 1 - 2 tab PO Q6H PRN #32 tab 12/11/22 12/15/22 Rx 7.5-325] Sennosides [Senokot] 2 tab PO DAILY PRN #60 tablet 12/11/22 12/15/22 Rx Losartan [Cozaar] 50 mg PO DAILY 12/15/22 12/15/22 History Allergies Allergy/AdvReac Type Severity Reaction Status Date / Time prednisone Allergy Rash/Hives/ Verified 12/15/22 12:36 swelling Surgical - Exam Vital Signs Temp Pulse Resp BP Pulse Ox 99.2 F 104 H 18 151/89 98 12/15/22 06:53 12/15/22 06:53 12/15/22 06:53 12/15/22 06:53 12/15/22 06:53 Results - Labs 12/15/22 12:40 12/15/22 07:02 Abnormal Lab Results - Last 24 Hours (Table) 12/15/22 12/15/22 12/15/22 Range/Units 07:02 07:02 10:15 Hct 49.4 H (34.0-46.0) % Plt Count 143 L 70 L D (150-450) k/uL Lymphocytes # 0.9 L 0.3 L (1.0-4.8) k/uL Chloride 110 H (98-107) mmol/L Glucose 165 H (74-99) mg/dL Calcium 7.5 L (8.4-10.2) mg/dL Total Protein 5.2 L (6.3-8.2) g/dL Albumin 2.6 L (3.5-5.0) g/dL Diabetes panel 12/15/22 Range/Units 07:02 Sodium 139 (137-145) mmol/L Potassium 3.6 (3.5-5.1) mmol/L Chloride 110 H (98-107) mmol/L Carbon Dioxide 22 (22-30) mmol/L BUN 14 (7-17) mg/dL Creatinine 0.90 (0.52-1.04) mg/dL Glucose 165 H (74-99) mg/dL Calcium 7.5 L (8.4-10.2) mg/dL AST 23 (14-36) U/L ALT 15 (4-34) U/L Alkaline Phosphatase 74 (38-126) U/L Total Protein 5.2 L (6.3-8.2) g/dL Albumin 2.6 L (3.5-5.0) g/dL Calcium panel 12/15/22 Range/Units 07:02 Calcium 7.5 L (8.4-10.2) mg/dL Albumin 2.6 L (3.5-5.0) g/dL Pituitary panel 12/15/22 Range/Units 07:02 Sodium 139 (137-145) mmol/L Potassium 3.6 (3.5-5.1) mmol/L Chloride 110 H (98-107) mmol/L Carbon Dioxide 22 (22-30) mmol/L BUN 14 (7-17) mg/dL Creatinine 0.90 (0.52-1.04) mg/dL Glucose 165 H (74-99) mg/dL Calcium 7.5 L (8.4-10.2) mg/dL Adrenal panel 12/15/22 Range/Units 07:02 Sodium 139 (137-145) mmol/L Potassium 3.6 (3.5-5.1) mmol/L Chloride 110 H (98-107) mmol/L Carbon Dioxide 22 (22-30) mmol/L BUN 14 (7-17) mg/dL Creatinine 0.90 (0.52-1.04) mg/dL Glucose 165 H (74-99) mg/dL Calcium 7.5 L (8.4-10.2) mg/dL Total Bilirubin 0.8 (0.2-1.3) mg/dL AST 23 (14-36) U/L ALT 15 (4-34) U/L Alkaline Phosphatase 74 (38-126) U/L Total Protein 5.2 L (6.3-8.2) g/dL Albumin 2.6 L (3.5-5.0) g/dL
--- NOTE | 2022-12-15 16:41 | P.CONS ---
History of Present Illness - Reason for Consult Consult date: 12/15/22 Medical management Requesting physician: Qian Murray - Chief Complaint Blood clots per rectum - History of Present Illness Very pleasant 67-year-old patient who follows with Dr. Lozada. Chronic stable medical conditions include , GERD, hypertension, hyperlipidemia, hypothyroid, hiatal hernia, gastric stricture with dysphagia with dilatation, unilateral left kidney. gastric bypass about 18 years ago. Had undergone right nephrectomy for congenital defect. December 11: left total knee arthroplasty. By Dr. Yanick Jin. Discharged the following day. Unremarkable stay otherwise. Patient now presents with blood clots via rectum. Epigastric discomfort. Tired rundown. No fever no chills. Patient's had prior diverticular bleed. Patient's family the bedside. Laying in bed. Patient was discharged with aspirin for DVT prophylaxis. Patient had EGD in May of this year at [facility]. Review of systems: GEN.: None EYES: None HEENT: None NECK: None RESPIRATORY: None CARDIOVASCULAR: None GASTROINTESTINAL: As above GENITOURINARY: None MUSCULOSKELETAL: Joint pains LYMPHATICS: None HEMATOLOGICAL: None PSYCHIATRY: None NEUROLOGICAL: None Social history: No smoking or alcohol. . Physical examination: VITAL SIGNS: 99.2, 81, 92/68, 99% room air GENERAL: BMI 44.3, laying in bed, tired EYES: Pupils equal. Conjunctiva pale HEENT: External appearance of nose and ears normal, oral cavity grossly normal. NECK: JVD not raised; masses not palpable. HEART: First and second heart sounds are normal; no edema. LUNGS: Respiratory rate normal; clear to auscultation. ABDOMEN: Soft, mild epigastric tenderness, liver spleen not palpable, no masses palpable. PSYCH: Alert and oriented x3; mood and affect normal. MUSCULOSKELETAL:No Clubbing/cyanosis;muscles-grossly intact. Incision over the left knee. OA. NEUROLOGICAL: Cranial nerves grossly intact; no facial asymmetry, power and sensation grossly intact. LYMPHATICS: No lymph nodes palpable in the axilla and neck INVESTIGATIONS, reviewed in the clinical context: CT abdomen and pelvis: Stable colonic diverticulosis. Stable in the distal sigmoid indicating prior resection. And reanastomosis. Immanuel-en-Y gastric bypass redemonstrated. Possible hepatic steatosis. December 15: White count 7 hemoglobin 8.9 platelets 125 sodium 139 potassium 3.6 creatinine 0.9 December 12: White count 9.6 hemoglobin 12.4 platelets 126 12/01/2022: hemoglobin 14.8 Assessment and plan: -Acute GI bleed suspect to be upper with epigastric discomfort. Patient with having blood clots. Doubt stool. Patient known to Dr. Dixon from general surgery. PPI. Stop aspirin -Acute GI blood loss anemia. Hemoglobin prior to surgery was 14.8. When discharge was 12.4. Today down to 8.9 Watch H&H closely. -Left total knee arthroplasty. On 12/12/[address] Yanick Jin. -Immanuel-en-Y gastric bypass surgery about 18 years ago -Hyperlipidemia Lipitor 10 mg a day -Diabetes mellitus type 2 Follow Accu-Cheks ascites). Trulicity. -Hypothyroid Synthroid 200 g a day -Essential hypertension Cozaar -hold for now -Depression/anxiety otherwise specified Wellbutrin XL. -Morbid obesity BMI 44. Prior history of gastric bypass over 18 years ago. Weight loss measures. Discussed with patient and family the bedside. Thank you Dr. Dixon. We'll follow. Past Medical History Past Medical History: Diabetes Mellitus, GERD/Reflux, GI Bleed, Hyperlipidemia, Hypertension, Renal Disease, Thyroid Disorder Additional Past Medical History / Comment(s): Hiatal hernia, diverticulitis w/ lower GI bleed, gastric stricture/dysphagia w/ dilation, gastric benign polyp, NIDDM type II-no longer on meds since wt loss, GI bleed in "old stomach" (hx gastric bypass, GI bleed R/T stomach that is not used). HAS ONLY LEFT KIDNEY History of Any Multi-Drug Resistant Organisms: None Reported Past Surgical History: Joint Replacement Additional Past Surgical History / Comment(s): R nephrectomy(congental defect)/ureterectomy, thyroidectomy, Immanuel en Y gastric bypass EGD with dilation, colonoscopy, hysteroscopy D&C x2, Rt breast benign biopsy; colon re section 06/17/2020. Past Anesthesia/Blood Transfusion Reactions: Previous Problems w/ Anesthesia, Motion Sickness, Postoperative Nausea & Vomiting (PONV) Additional Past Anesthesia/Blood Transfusion Reaction / Comm: Hard time awakening from anesthesia-" TAKES LONGER TO WAKE UP" Past Psychological History: Anxiety Smoking Status: Former smoker Past Alcohol Use History: None Reported Past Drug Use History: None Reported - Past Family History Father Family Medical History: Cancer Additional Family Medical History / Comment(s): Lung cancer. Mother Family Medical History: Cancer Additional Family Medical History / Comment(s): Breast cancer. Sister(s) Family Medical History: Cancer Additional Family Medical History / Comment(s): 2 SISTERS HAD BREAST CANCER, 1 HAS BLADDER CANCER. Brother(s) Family Medical History: Cancer Additional Family Medical History / Comment(s): Brother is living. He had a WI at the age of 50yrs. Lung cancer. Medications and Allergies Home Medications Medication Instructions Recorded Confirmed Type buPROPion XL [Wellbutrin XL] 300 mg PO DAILY 07/29/18 12/15/22 History Levothyroxine Sodium [Synthroid] 200 mcg PO DAILY 04/28/20 12/15/22 History Atorvastatin [Lipitor] 10 mg PO DAILY 03/09/21 12/15/22 History hydroCHLOROthiazide 12.5 mg PO DAILY 03/09/21 12/15/22 History Cetirizine HCl [Zyrtec] 10 mg PO DAILY PRN 12/07/22 12/15/22 History Dulaglutide [Trulicity] 0.75 mg SQ MO 12/07/22 12/15/22 History Sucralfate [Carafate] 1 gm PO BID 12/07/22 12/15/22 History polyethylene glycoL 3350 [Miralax] 17 gm PO DAILY 12/07/22 12/15/22 History Aspirin 325 mg PO BID #60 tab 12/11/22 12/15/22 Rx HYDROcodone/APAP 7.5-325MG [[place] 1 - 2 tab PO Q6H PRN #32 tab 12/11/22 12/15/22 Rx 7.5-325] Sennosides [Senokot] 2 tab PO DAILY PRN #60 tablet 12/11/22 12/15/22 Rx Losartan [Cozaar] 50 mg PO DAILY 12/15/22 12/15/22 History Allergies Allergy/AdvReac Type Severity Reaction Status Date / Time prednisone Allergy Rash/Hives/ Verified 12/15/22 12:36 swelling Physical Exam Vitals: Vital Signs Temp Pulse Resp BP Pulse Ox 12/15/22 14:21 98.9 F 85 18 145/74 95 12/15/22 13:21 76 101/71 12/15/22 13:04 81 92/68 12/15/22 10:58 75/56 12/15/22 10:27 89 18 111/62 99 12/15/22 06:53 99.2 F 104 H 18 151/89 98 Intake and Output 12/15/22 12/15/22 12/15/22 06:59 14:59 22:59 Other: Weight 113.398 kg Results CBC & Chem 7: 12/15/22 12:40 12/15/22 07:02 Labs: Abnormal Lab Results - Last 24 Hours (Table) 12/15/22 12/15/22 12/15/22 Range/Units 07:02 07:02 10:15 RBC (3.80-5.40) m/uL Hgb (11.4-16.0) gm/dL Hct 49.4 H (34.0-46.0) % Plt Count 143 L 70 L D (150-450) k/uL Lymphocytes # 0.9 L 0.3 L (1.0-4.8) k/uL Chloride 110 H (98-107) mmol/L Glucose 165 H (74-99) mg/dL Calcium 7.5 L (8.4-10.2) mg/dL Total Protein 5.2 L (6.3-8.2) g/dL Albumin 2.6 L (3.5-5.0) g/dL 12/15/22 Range/Units 12:40 RBC 2.91 L (3.80-5.40) m/uL Hgb 8.9 L D (11.4-16.0) gm/dL Hct 26.9 L (34.0-46.0) % Plt Count 125 L D (150-450) k/uL Lymphocytes # (1.0-4.8) k/uL Chloride (98-107) mmol/L Glucose (74-99) mg/dL Calcium (8.4-10.2) mg/dL Total Protein (6.3-8.2) g/dL Albumin (3.5-5.0) g/dL
[2022-12-15] MEDS: ACETAMINOPHEN TAB 325 MG TAB PO PRN (17:44)
[2022-12-15] MEDS: SODIUM CHLORIDE 0.9% 1,000 ML IV SCH ×2 (17:46→19:08)
[2022-12-15] MEDS: PANTOPRAZOLE 40 MG TABLET PO SCH (19:10)
[2022-12-15] MEDS: SUCRALFATE 1 GM TAB PO SCH (22:03)
[2022-12-16] MEDS: PIPERACILLIN-TAZOBACTAM 3.375 GM in SODIUM CHLORIDE 0.9% 100 ML IVPB SCH ×4 (00:16→23:57)
[2022-12-16 01:25] LABS: Basophils % (A) 0 %; Eosinophils # (A) 0.3 k/uL (0-0.7); Eosinophils % (A) 4 %; HCT 22.4 % (34.0-46.0); Lymphocytes # (A) 1.3 k/uL (1.0-4.8); Lymphocytes % (A) 19 %; MCH 30.4 pg (25.0-35.0); MCHC 32.4 g/dL (31.0-37.0); MCV 93.9 fL (80.0-100.0); Monocytes # (A) 0.4 k/uL (0-1.0); Monocytes % (A) 6 %; Neutrophils # (A) 4.7 k/uL (1.3-7.7); Neutrophils % (A) 69 %; Platelet Count 132 k/uL (150-450); RBC 2.38 m/uL (3.80-5.40); RDW 14.8 % (11.5-15.5); WBC 6.8 k/uL (3.8-10.6)
[2022-12-16 01:26] LABS: HGB 7.2 gm/dL (11.4-16.0)
[2022-12-16] MEDS: SODIUM CHLORIDE 0.9% 1,000 ML IV SCH ×3 (02:49→22:19)
[2022-12-16 03:27] LABS: Glucose,Whole Blood 138 mg/dL (70-110)
[2022-12-16 04:26] LABS: Basophils % (A) 0 %; Eosinophils # (A) 0.3 k/uL (0-0.7); Eosinophils % (A) 4 %; HCT 22.4 % (34.0-46.0); HGB 7.3 gm/dL (11.4-16.0); Lymphocytes # (A) 1.2 k/uL (1.0-4.8); Lymphocytes % (A) 18 %; MCH 30.8 pg (25.0-35.0); MCHC 32.7 g/dL (31.0-37.0); MCV 94.2 fL (80.0-100.0); Mean Platelet Volume 8.3; Monocytes # (A) 0.4 k/uL (0-1.0); Monocytes % (A) 5 %; Neutrophils # (A) 4.8 k/uL (1.3-7.7); Neutrophils % (A) 71 %; Platelet Count 138 k/uL (150-450); RBC 2.38 m/uL (3.80-5.40); RDW 15.1 % (11.5-15.5); WBC 6.8 k/uL (3.8-10.6)
[2022-12-16] MEDS: PANTOPRAZOLE 40 MG TABLET PO SCH ×2 (06:48→18:25)
[2022-12-16] MEDS: LEVOTHYROXINE 100 MCG TAB PO SCH (06:48)
[2022-12-16] MEDS: MORPHINE SULFATE 2 MG/ML SYRINGE IVP PRN ×3 (09:18→22:15)
[2022-12-16] MEDS: buPROPion XL 150 MG TAB.ER.24H PO SCH (10:19)
[2022-12-16] MEDS: ATORVASTATIN 10 MG TAB PO SCH (10:19)
[2022-12-16] MEDS: SUCRALFATE 1 GM TAB PO SCH ×2 (10:19→21:19)
[2022-12-16] MEDS: HYDROcodone/APAP 5-325MG 1 EACH TAB PO PRN ×2 (11:29→18:29)
--- NOTE | 2022-12-16 11:40 | P.CNPUL ---
History of Present Illness Consult date: 12/16/22 Chief complaint: GI bleeding History of present illness: This is a 67-year-old female patient, who is morbidly obese with previous episodes of GI bleeding and was post gastric bypass surgery was coming into the hospital because of the current and ongoing GI bleed. The patient had at least 8 episodes of maroon colored stool yesterday. No melena. No hematemesis. No abdominal pain. The patient is known to have previous episode of GI bleed. The patient had a bleeding back in May 2020 and this was attributed to diverticular bleed and subsequently in March 2021 and this is attributed to a gastrojejunal ulcer. Following her left knee arthroplasty, the patient was given aspirin and she is coming in for another episode of GI bleed. The patient has a drop in hemoglobin from 16 down to 7.3. She has received a unit of packed RBC and a second unit is to follow. General surgery is on the case. She is hemodynamically stable. CAT scan of the abdomen was done and the patient was found to have post gastric bypass changes, small hiatal hernia, colonic diverticulosis more extensive in the sigmoid area and possible hepatic steatos is. The patient is post cholecystectomy. No active bleeding this morning. Granulation profile is within normal limits. Platelet count is above 100 K. No chest pain. No shortness of breath. She is alert and awake. Review of Systems Constitutional: Reports weight loss (Following gastric bypass surgery in the order of 100 pounds), Denies chills, Denies fever Eyes: denies as per HPI, denies blurred vision, denies bulging eye, denies decreased vision, denies diplopia, denies discharge, denies dry eye, denies irritation, denies itching, denies pain, denies photophobia, denies loss of peripheral vision, denies loss of vision, denies tunnel vision/blind spots Ears: deny: decreased hearing, ear discharge, earache, tinnitus Ears, nose, mouth and throat: Reports as per HPI Breasts: absent: as per HPI, change in shape, gynecomastia, masses, nipple disch arge, pain, skin changes, swelling Cardiovascular: Reports as per HPI Respiratory: Reports as per HPI Gastrointestinal: Reports BRBPR Genitourinary: Reports as per HPI Menstruation: Reports as per HPI Musculoskeletal: Reports as per HPI Musculoskeletal: left: knee swelling, absent: ankle pain, ankle stiffness, ankle swelling Integumentary: Reports as per HPI Neurological: Reports as per HPI Psychiatric: Reports as per HPI Endocrine: Reports as per HPI Hematologic/Lymphatic: Reports as per HPI Allergic/Immunologic: Reports as per HPI Past Medical History Past Medical History: Diabetes Mellitus, GERD/Reflux, GI Bleed, Hyperlipidemia, Hypertension, Renal Disease, Thyroid Disorder Additional Past Medical History / Comment(s): Hiatal hernia, diverticulitis w/ lower GI bleed, gastric stricture/dysphagia w/ dilation, gastric benign polyp, NIDDM type II-no longer on meds since wt loss, GI bleed in "old stomach" (hx gastric bypass, GI bleed R/T stomach that is not used). HAS ONLY LEFT KIDNEY History of Any Multi-Drug Resistant Organisms: None Reported Past Surgical History: Joint Replacement Additional Past Surgical History / Comment(s): R nephrectomy(congental defect)/ureterectomy, thyroidectomy, Immanuel en Y gastric bypass EGD with dilation, colonoscopy, hysteroscopy D&C x2, Rt breast benign biopsy; colon resection 06/17/2020. Past Anesthesia/Blood Transfusion Reactions: Previous Problems w/ Anesthesia, Motion Sickness, Postoperative Nausea & Vomiting (PONV) Additional Past Anesthesia/Blood Transfusion Reaction / Comment(s): Hard time awakening from anesthesia-" TAKES LONGER TO WAKE UP" Past Psychological History: Anxiety Smoking Status: Former smoker Past Alcohol Use History: None Reported Past Drug Use History: None Reported - Past Family History Father Family Medical History: Cancer Additional Family Medical History / Comment(s): Lung cancer. Mother Family Medical History: Cancer Additional Family Medical History / Comment(s): Breast cancer. Sister(s) Family Medical History: Cancer Additional Family Medical History / Comment(s): 2 SISTERS HAD BREAST CANCER, 1 HAS BLADDER CANCER. Brother(s) Family Medical History: Cancer Additional Family Medical History / Comment(s): Brother is living. He had a [place] at the age of 50yrs. Lung cancer. Medications and Allergies Home Medications Medication Instructions Recorded Confirmed Type buPROPion XL [Wellbutrin XL] 300 mg PO DAILY 07/29/18 12/15/22 History Levothyroxine Sodium [Synthroid] 200 mcg PO DAILY 04/28/20 12/15/22 History Atorvastatin [Lipitor] 10 mg PO DAILY 03/09/21 12/15/22 History hydroCHLOROthiazide 12.5 mg PO DAILY 03/09/21 12/15/22 History Cetirizine HCl [Zyrtec] 10 mg PO DAILY PRN 12/07/22 12/15/22 History Dulaglutide [Trulicity] 0.75 mg SQ MO 12/07/22 12/15/22 History Sucralfate [Carafate] 1 gm PO BID 12/07/22 12/15/22 History polyethylene glycoL 3350 [Miralax] 17 gm PO DAILY 12/07/22 12/15/22 History Aspirin 325 mg PO BID #60 tab 12/11/22 12/15/22 Rx HYDROcodone/APAP 7.5-325MG [[place] 1 - 2 tab PO Q6H PRN #32 tab 12/11/22 12/15/22 Rx 7.5-325] Sennosides [Senokot] 2 tab PO DAILY PRN #60 tablet 12/11/22 12/15/22 Rx Losartan [Cozaar] 50 mg PO DAILY 12/15/22 12/15/22 History Allergies Allergy/AdvReac Type Severity Reaction Status Date / Time prednisone Allergy Rash/Hives/ Verified 12/15/22 12:36 swelling Physical Exam Vitals: Vital Signs Temp Pulse Resp BP Pulse Ox 12/16/22 07:00 76 12 144/76 99 12/16/22 06:40 78 15 144/76 95 12/16/22 06:20 98.9 F 75 15 147/69 95 12/16/22 06:11 98.8 F 81 12 133/66 96 12/16/22 06:00 76 17 137/60 99 12/16/22 05:00 75 13 131/68 99 12/16/22 04:00 79 18 144/74 98 12/16/22 03:26 98.7 F 80 17 12/15/22 21:37 80 16 110/61 96 12/15/22 19:41 98.7 F 78 16 107/57 97 12/15/22 14:21 98.9 F 85 18 145/74 95 12/15/22 13:21 76 101/71 12/15/22 13:04 81 92/68 12/15/22 10:58 75/56 12/15/22 10:27 89 18 111/62 99 Intake and Output 12/15/22 12/16/22 12/16/22 22:59 06:59 14:59 Intake Total 690 Balance 690 Intake: IV 690 RBC 300 Sodium Chloride 0.9% 1, 390 000 ml @ 130 mls/hr IV . Q7H42M [facility] Rx#:[id number] Blood Product 0 Unit 0 Other: Voiding Method External Catheter GENERAL: BMI 44.3, laying in bed, tired EYES: Pupils equal. Conjunctiva pale HEENT: External appearance of nose and ears normal, oral cavity grossly normal. NECK: JVD not raised; masses not palpable. HEART: First and second heart sounds are normal; no edema. LUNGS: Respiratory rate normal; clear to auscultation. ABDOMEN: Soft, mild epigastric tenderness, liver spleen not palpable, no masses palpable. PSYCH: Alert and oriented x3; mood and affect normal. MUSCULOSKELETAL:No Clubbing/cyanosis;muscles-grossly intact. Incision over the left knee. OA. NEUROLOGICAL: Cranial nerves grossly intact; no facial asymmetry, power and sensation grossly intact. LYMPHATICS: No lymph nodes palpable in the axilla and neck Results - Laboratory Findings CBC and BMP: 12/16/22 03:59 12/15/22 07:02 PT/INR, D-dimer PT 9.7 sec (9.0-12.0) 12/15/22 07:02 INR 0.9 (<1.2) 12/15/22 07:02 Abnormal lab findings: Abnormal Labs 12/15/22 12/15/22 12/15/22 06:53 07:02 07:02 RBC Hgb Hct Plt Count 143 L Lymphocytes # 0.9 L Chloride 110 H Glucose 165 H POC Glucose (mg/dL) Calcium 7.5 L Total Protein 5.2 L Albumin 2.6 L Crossmatch See Detail 12/15/22 12/15/22 12/16/22 10:15 12:40 01:12 RBC 2.91 L 2.38 L Hgb 8.9 L D 7.2 L D Hct 49.4 H 26.9 L 22.4 L Plt Count 70 L D 125 L D 132 L Lymphocytes # 0.3 L Chloride Glucose POC Glucose (mg/dL) Calcium Total Protein Albumin Crossmatch 09/16/23 09/16/23 03:25 03:59 RBC 2.38 L Hgb 7.3 L Hct 22.4 L Plt Count 138 L Lymphocytes # Chloride Glucose POC Glucose (mg/dL) 138 H Calcium Total Protein Albumin Crossmatch Assessment and Plan Plan: Acute GI bleed, consider possibility of an upper GI bleed as the patient has a p revious GI bleeding related to a gastrojejunal ulcer. Consider diverticular lower GI bleeding. The patient had significant blood loss anemia currently she is being transfused secondary to packed RBC Acute blood loss anemia and a hemoglobin drop from 12-7.3, patient remains hemodynamically stable. The patient was taking aspirin on outpatient basis and this was given to her for DVT prophylaxis following her left knee surgery. 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 Left knee arthroplasty,, this is a total knee arthroplasty that was done on 12/11/2022 Morbid obesity due to excess calories, BMI 44.1 History of gastric bypass Hypertensive heart disease History of thyroid cancer Hypothyroidism Depressive disorder Congenital signal kidney Hyperlipidemia Plan Suspect diverticular bleed although the possibility of an upper GI bleed cannot be completely excluded Keep the patient nothing by mouth Stop antiplatelet agent and the patient is taken off the aspirin Normal saline through the 130s and hours Moderate hemoglobin Complete the second unit of packed of his transfusion and monitor the hemoglobin GI surgeries on the case Continue Carafate Continue Protonix Utilize Hamill for pain control and morphine on as needed basis We'll continue to follow
--- NOTE | 2022-12-16 11:52 | P.PN ---
Progress Note - Text Progress Note Date: 12/16/22 Patient's hemoglobin dropped to 7.2 last night. She is receiving 2 units of packed red cells. She denies any significant abdominal pain. On exam vital signs are stable. Abdomen soft. Probable diverticular bleed. Patient will be evaluated by Dr. Dixon and most likely undergo endoscopy.
[2022-12-16] MEDS: LOSARTAN 50 MG TAB PO SCH (14:55)
[2022-12-16 15:32] LABS: Anisocytosis Slight; Basophils % (A) 1 %; Eosinophils # (A) 0.3 k/uL (0-0.7); Eosinophils % (A) 4 %; HCT 26.6 % (34.0-46.0); HGB 8.7 gm/dL (11.4-16.0); Lymphocytes # (A) 1.3 k/uL (1.0-4.8); Lymphocytes % (A) 20 %; MCH 29.5 pg (25.0-35.0); MCHC 32.6 g/dL (31.0-37.0); MCV 90.3 fL (80.0-100.0); Mean Platelet Volume 8.6; Monocytes # (A) 0.3 k/uL (0-1.0); Monocytes % (A) 5 %; Neutrophils # (A) 4.4 k/uL (1.3-7.7); Neutrophils % (A) 68 %; Platelet Count 138 k/uL (150-450); RBC 2.94 m/uL (3.80-5.40); RDW 16.8 % (11.5-15.5); WBC 6.5 k/uL (3.8-10.6)
--- NOTE | 2022-12-16 17:37 | P.PN ---
Progress Note - Text Progress Note Date: 12/16/22 - Chief Complaint Blood clots per rectum - History of Present Illness Very pleasant 67-year-old patient who follows with Dr. Lozada. Chronic stable medical conditions include , GERD, hypertension, hyperlipidemia, hypothyroid, hiatal hernia, gastric stricture with dysphagia with dilatation, unilateral left kidney. gastric bypass about 18 years ago. Had undergone right nephrectomy for congenital defect. December 11: left total knee arthroplasty. By Dr. Yanick Jin. Discharged the following day. Unremarkable stay otherwise. Patient now presents with blood clots via rectum. Epigastric discomfort. Tired rundown. No fever no chills. Patient's had prior diverticular bleed. Patient's family the bedside. Laying in bed. Patient was discharged with aspirin for DVT prophylaxis. Patient had EGD in May of this year at [facility]. Admitted with acute lower GI bleed. Source found. Possible gastric. Cannot rule out diverticular. December 16: Overnight patient dropped hemoglobin to 7.2. We'll to the ICU. 2 units of blood ordered and given by Dr. Teague. Patient's had no further bloody BM since yesterday. Blood pressure is stable. Cozaar is being resumed. IV fluid cutback. Patient on clear liquids and advanced to full liquids. No abdominal pain. Active Medications Acetaminophen (Acetaminophen Tab 325 Mg Tab) 650 mg PO Q6HR PRN PRN Reason: Mild Pain or Fever > 100.5 Last Admin: 12/15/22 17:44 Dose: 650 mg Hydrocodone Bitart/Acetaminophen (Hydrocodone/Apap 5-325mg 1 Each Tab) 1 each PO Q6HR PRN PRN Reason: Pain Last Admin: 12/16/22 11:29 Dose: 1 each Atorvastatin Calcium (Atorvastatin 10 Mg Tab) 10 mg PO DAILY [facility] Last Admin: 12/16/22 10:19 Dose: 10 mg Bupropion HCl (Bupropion Xl 150 Mg Tab.Er.24h) 300 mg PO DAILY [facility]KA Last Admin: 12/16/22 10:19 Dose: 300 mg Piperacillin Sod/Tazobactam (Sod 3.375 gm/ Sodium Chloride) 100 mls @ 25 mls/hr IVPB Q8HR [facility]KA; Protocol Last Admin: 12/16/22 17:20 Dose: 25 mls/hr Sodium Chloride (Saline 0.9%) 1,000 mls @ 50 mls/hr IV .Q20H [facility] Last Admin: 12/16/22 14:51 Dose: 50 mls/hr Levothyroxine Sodium (Levothyroxine 100 Mcg Tab) 200 mcg PO 0630 [facility] Last Admin: 12/16/22 06:48 Dose: 200 mcg Loratadine (Loratadine 10 Mg Tab) 10 mg PO DAILY PRN PRN Reason: Allergy Symptoms Losartan Potassium (Losartan 50 Mg Tab) 50 mg PO DAILY [facility] Last Admin: 12/16/22 14:55 Dose: 50 mg Morphine Sulfate (Morphine Sulfate 4 Mg/Ml Syringe) 4 mg IV Q4HR PRN PRN Reason: Severe Pain (Scale 7 to 10) Morphine Sulfate (Morphine Sulfate 2 Mg/Ml Syringe) 2 mg IVP Q4HR PRN PRN Reason: Pain/Discomfort Last Admin: 12/16/22 17:17 Dose: 2 mg Naloxone HCl (Naloxone 0.4 Mg/Ml 1 Ml Vial) 0.2 mg IV Q2M PRN PRN Reason: Opioid Reversal Patient's Own ( Dulaglutide [ Trulicity] 0.75 Mg/0 .5 Ml Each) 0.75 mg SQ MO [facility] Ondansetron HCl (Ondansetron 4 Mg/2 Ml Vial) 4 mg IVP Q8HR PRN PRN Reason: Nausea And Vomiting Pantoprazole Sodium (Pantoprazole 40 Mg Tablet) 40 mg PO AC-BID [facility] Last Admin: 12/16/22 06:48 Dose: 40 mg Sucralfate (Sucralfate 1 Gm Tab) 1 gm PO BID [facility] Last Admin: 12/16/22 10:19 Dose: 1 gm Social history: No smoking or alcohol. . Physical examination: VITAL SIGNS: 98.8, 72, 16, 1 46 x 69, 99% room air GENERAL: BMI 44.3, laying in bed, tired EYES: Pupils equal. Conjunctiva pale HEENT: External appearance of nose and ears normal, oral cavity grossly normal. NECK: JVD not raised; masses not palpable. HEART: First and second heart sounds are normal; no edema. LUNGS: Respiratory rate normal; clear to auscultation. ABDOMEN: Soft, mild epigastric tenderness, liver spleen not palpable, no masses palpable. PSYCH: Alert and oriented x3; mood and affect normal. MUSCULOSKELETAL:No Clubbing/cyanosis;muscles-grossly intact. Incision over the left knee. OA. INVESTIGATIONS, reviewed in the clinical context: December 16: White count is 6.8 hemoglobin 7.[address] abdomen and pelvis: Stable colonic diverticulosis. Stable in the distal sigmoid indicating prior resection. And reanastomosis. Immanuel-en-Y gastric bypass redemonstrated. Possible hepatic steatosis. December 15: White count 7 hemoglobin 8.9 platelets 125 sodium 139 potassium 3.6 creatinine 0.9 December 12: White count 9.6 hemoglobin 12.4 platelets 126 12/01/2022: hemoglobin 14.8 Assessment and plan: -Acute GI bleed suspect to be upper with epigastric discomfort. Patient with having blood clots. Doubt stool. Patient known to Dr. Dixon from general surgery. PPI. Stop aspirin Follow with surgical team. -Acute GI blood loss anemia. Hemoglobin prior to surgery was 14.8. When discharge was 12.4. Today down to 7.3: Worsening 2 units of blood ordered by Dr. Teague. -Left total knee arthroplasty. On 12/12/[address] Yanick Jin. -Immanuel-en-Y gastric bypass surgery about 18 years ago -Hyperlipidemia Lipitor 10 mg a day -Diabetes mellitus type 2 Follow Accu-Cheks ascites). Trulicity. -Hypothyroid Synthroid 200 g a day -Essential hypertension Cozaar -hold for now -Depression/anxiety otherwise specified Wellbutrin XL. -Morbid obesity BMI 44. Prior history of gastric bypass over 18 years ago. Weight loss measures. Discussed with patient , questions answered Thank you Dr. Dixon. Past Medical History Past Medical History: Diabetes Mellitus, GERD/Reflux, GI Bleed, Hyperlipidemia, Hypertension, Renal Disease, Thyroid Disorder Additional Past Medical History / Comment(s): Hiatal hernia, diverticulitis w/ lower GI bleed, gastric stricture/dysphagia w/ dilation, gastric benign polyp, NIDDM type II-no longer on meds since wt loss, GI bleed in "old stomach" (hx gastric bypass, GI bleed R/T stomach that is not used). HAS ONLY LEFT KIDNEY History of Any Multi-Drug Resistant Organisms: None Reported Past Surgical History: Joint Replacement Additional Past Surgical History / Comment(s): R nephrectomy(congental defect)/ureterectomy, thyroidectomy, Immanuel en Y gastric bypass EGD with dilation, colonoscopy, hysteroscopy D&C x2, Rt breast benign biopsy; colon resection 06/17/2020. Past Anesthesia/Blood Transfusion Reactions: Previous Problems w/ Anesthesia, Motion Sickness, Postoperative Nausea & Vomiting (PONV) Additional Past Anesthesia/Blood Transfusion Reaction / Comm: Hard time awakening from anesthesia-" TAKES LONGER TO WAKE UP" Past Psychological History: Anxiety Smoking Status: Former smoker Past Alcohol Use History: None Reported Past Drug Use History: None Reported - Past Family History Father Family Medical History: Cancer Additional Family Medical History / Comment(s): Lung cancer. Mother Family Medical History: Cancer Additional Family Medical History / Comment(s): Breast cancer. Sister(s) Family Medical History: Cancer Additional Family Medical History / Comment(s): 2 SISTERS HAD BREAST CANCER, 1 HAS BLADDER CANCER. Brother(s) Family Medical History: Cancer Additional Family Medical History / Comment(s): Brother is living. He had a [place] at the age of 50yrs. Lung cancer. Medications and Allergies Home Medications Medication Instructions Recorded Confirmed Type buPROPion XL [Wellbutrin XL] 300 mg PO DAILY 07/29/18 12/15/22 History Levothyroxine Sodium [Synthroid] 200 mcg PO DAILY 04/28/20 12/15/22 History Atorvastatin [Lipitor] 10 mg PO DAILY 03/09/21 12/15/22 History hydroCHLOROthiazide 12.5 mg PO DAILY 03/09/21 12/15/22 History Cetirizine HCl [Zyrtec] 10 mg PO DAILY PRN 12/07/22 12/15/22 History Dulaglutide [Trulicity] 0.75 mg SQ MO 12/07/22 12/15/22 History Sucralfate [Carafate] 1 gm PO BID 12/07/22 12/15/22 History polyethylene glycoL 3350 [Miralax] 17 gm PO DAILY 12/07/22 12/15/22 History Aspirin 325 mg PO BID #60 tab 12/11/22 12/15/22 Rx HYDROcodone/APAP 7.5-325MG [Mcdonald 1 - 2 tab PO Q6H PRN #32 tab 12/11/22 12/15/22 Rx 7.5-325] Sennosides [Senokot] 2 tab PO DAILY PRN #60 tablet 12/11/22 12/15/22 Rx Losartan [Cozaar] 50 mg PO DAILY 12/15/22 12/15/22 History Allergies Allergy/AdvReac Type Severity Reaction Status Date / Time prednisone Allergy Rash/Hives/ Verified 12/15/22 12:36 swelling
[2022-12-17] MEDS: HYDROcodone/APAP 5-325MG 1 EACH TAB PO PRN ×4 (02:15→23:22)
[2022-12-17 04:10] LABS: Anisocytosis Slight; Basophils % (A) 0 %; Eosinophils # (A) 0.2 k/uL (0-0.7); Eosinophils % (A) 4 %; HCT 26.3 % (34.0-46.0); HGB 8.6 gm/dL (11.4-16.0); Lymphocytes % (A) 15 %; MCH 29.4 pg (25.0-35.0); MCHC 32.7 g/dL (31.0-37.0); MCV 90.1 fL (80.0-100.0); Mean Platelet Volume 8.6; Monocytes # (A) 0.4 k/uL (0-1.0); Monocytes % (A) 7 %; Neutrophils # (A) 4.9 k/uL (1.3-7.7); Neutrophils % (A) 73 %; Platelet Count 130 k/uL (150-450); RBC 2.92 m/uL (3.80-5.40); RDW 16.8 % (11.5-15.5); WBC 6.7 k/uL (3.8-10.6)
[2022-12-17 04:24] LABS: African American GFR (CKD) 89 (>60 ml/min/1.73 sqM); Anion Gap 4 mmol/L; Blood Urea Nitrogen 8 mg/dL (7-17); Calcium 6.8 mg/dL (8.4-10.2); Carbon Dioxide 25 mmol/L (22-30); Chloride 109 mmol/L (98-107); Glucose 120 mg/dL (74-99); Non-African American GFR(CKD) 77 (>60 ml/min/1.73 sqM); Potassium 3.3 mmol/L (3.5-5.1); Sodium 138 mmol/L (137-145)
[2022-12-17] MEDS: POTASSIUM CHLORIDE ER 20 MEQ TAB.ER PO SCH ×4 (05:07→18:12)
[2022-12-17] MEDS: PANTOPRAZOLE 40 MG TABLET PO SCH ×2 (06:31→17:22)
[2022-12-17] MEDS: LEVOTHYROXINE 100 MCG TAB PO SCH (06:32)
[2022-12-17] MEDS: MORPHINE SULFATE 2 MG/ML SYRINGE IVP PRN ×2 (06:32→13:15)
[2022-12-17] MEDS: PIPERACILLIN-TAZOBACTAM 3.375 GM in SODIUM CHLORIDE 0.9% 100 ML IVPB SCH ×3 (08:08→23:23)
[2022-12-17] MEDS: buPROPion XL 150 MG TAB.ER.24H PO SCH (08:09)
[2022-12-17] MEDS: LOSARTAN 50 MG TAB PO SCH (08:09)
[2022-12-17] MEDS: ATORVASTATIN 10 MG TAB PO SCH (08:09)
[2022-12-17] MEDS: SUCRALFATE 1 GM TAB PO SCH ×2 (08:09→20:21)
--- NOTE | 2022-12-17 09:24 | P.PN ---
Progress Note - Text Progress Note Date: 12/17/22 Patient's resting comfortably in her bed. She denies any GI bleed. Her he will was a 0.6. There is a 0.7. On exam vital signs are stable. Abdomen soft nontender History of lower GI bleed. Patient will be reevaluated by Dr. Dixon. She may require endoscopy.
--- NOTE | 2022-12-17 11:27 | P.PN ---
Subjective Progress Note Date: 12/17/22 This is a 67-year-old female patient, who is morbidly obese with previous epis odes of GI bleeding and was post gastric bypass surgery was coming into the hospital because of the current and ongoing GI bleed. The patient had at least 8 episodes of maroon colored stool yesterday. No melena. No hematemesis. No abdominal pain. The patient is known to have previous episode of GI bleed. The patient had a bleeding back in May 2020 and this was attributed to diverticular bleed and subsequently in March 2021 and this is attributed to a gastrojejunal ulcer. Following her left knee arthroplasty, the patient was given aspirin and she is coming in for another episode of GI bleed. The patient has a drop in hemoglobin from 16 down to 7.3. She has received a unit of packed RBC and a second unit is to follow. General surgery is on the case. She is hemodynamically stable. CAT scan of the abdomen was done and the patient was found to have post gastric bypass changes, small hiatal hernia, colonic diverticulosis more extensive in the sigmoid area and possible hepatic steatosis. The patient is post cholecystectomy. No active bleeding this morning. Granulation profile is within normal limits. Platelet count is above 100 K. No chest pain. No shortness of breath. She is alert and awake. On today's evaluation of 12/17/2022, the patient is not showing any signs of bleeding, the patient is hemodynamically stable. The patient has remained nothing by mouth overnight. The patient is currently off aspirin. The patient got transfused with a total of 2 units of packed RBC since admission and the hemoglobin today's of 8.60 stable compared to yesterday. No nausea. No vomiting. No emesis. Potassium levels at 3.5, replaced, BUN is at 8 with a creatinine of 0.8 and sodium level is at 138. The white cell count at 6.7. Objective - Vital Signs Vital signs: Vital Signs Temp 99.0 F 12/17/22 08:00 Pulse 74 12/17/22 08:00 Resp 17 12/17/22 08:00 BP 151/74 12/17/22 08:00 Pulse Ox 91 L 12/17/22 08:00 FiO2 Intake & Output 12/16/22 12/17/22 12/17/22 18:59 06:59 18:59 Intake Total 933 700 100 Output Total 1750 2850 350 Balance -943 -5607 -986 Weight 113.398 kg 122.1 kg Intake: IV 200 600 100 Sodium Chloride 0.9% 1, 200 600 100 000 ml @ 50 mls/hr IV . Q20H [facility] Rx#:[id number] Intake, IV Titration 150 100 Amount Piperacillin-Tazobactam 3 150 100 .375 gm In Sodium Chloride 0.9% 100 ml @ 25 mls/hr IVPB Q8HR [facility]KA Rx# :[id number] Blood Product 583 Rc As-1 Unit 310 [id number] Rc Pheresis As-3 Unit 273 [id number] Output: Urine 1750 2850 350 Other: Voiding Method External Catheter External Catheter - Exam GENERAL: BMI 44.3, laying in bed, tired EYES: Pupils equal. Conjunctiva pale HEENT: External appearance of nose and ears normal, oral cavity grossly normal. NECK: JVD not raised; masses not palpable. HEART: First and second heart sounds are normal; no edema. LUNGS: Respiratory rate normal; clear to auscultation. ABDOMEN: Soft, mild epigastric tenderness, liver spleen not palpable, no masses palpable. PSYCH: Alert and oriented x3; mood and affect normal. MUSCULOSKELETAL:No Clubbing/cyanosis;muscles-grossly intact. Incision over the left knee. OA. NEUROLOGICAL: Cranial nerves grossly intact; no facial asymmetry, power and sensation grossly intact. LYMPHATICS: No lymph nodes palpable in the axilla and neck - Labs CBC & Chem 7: 12/17/22 03:39 12/17/22 08:27 Labs: Abnormal Lab Results - Last 24 Hours (Table) 12/15/22 12/16/22 12/17/22 Range/Units 06:53 14:22 03:39 RBC 2.94 L 2.92 L (3.80-5.40) m/uL Hgb 8.7 L 8.6 L (11.4-16.0) gm/dL Hct 26.6 L 26.3 L (34.0-46.0) % RDW 16.8 H 16.8 H (11.5-15.5) % Plt Count 138 L 130 L (150-450) k/uL Potassium (3.5-5.1) mmol/L Chloride (98-107) mmol/L Glucose (74-99) mg/dL Calcium (8.4-10.2) mg/dL Crossmatch See Detail 12/17/22 Range/Units 03:39 RBC (3.80-5.40) m/uL Hgb (11.4-16.0) gm/dL Hct (34.0-46.0) % RDW (11.5-15.5) % Plt Count (150-450) k/uL Potassium 3.3 L (3.5-5.1) mmol/L Chloride 109 H (98-107) mmol/L Glucose 120 H (74-99) mg/dL Calcium 6.8 L (8.4-10.2) mg/dL Crossmatch Microbiology - Last 24 Hours (Table) 12/15/22 10:30 Blood Culture - Preliminary Blood 12/15/22 10:15 Blood Culture - Preliminary Blood Assessment and Plan Plan: Acute GI bleed, consider possibility of an upper GI bleed as the patient has a previous GI bleeding related to a gastrojejunal ulcer. Consider diverticular lower GI bleeding. The patient had significant blood loss anemia and the patient got transfused with a total of 2 units of packed RBC and hemoglobin is up to 8.6, currently stable Acute blood loss anemia and a hemoglobin drop from 12-7.3, patient remains hemodynamically stable. The patient was taking aspirin on outpatient basis and this was given to her for DVT prophylaxis following her left knee surgery. 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 Left knee arthroplasty,, this is a total knee arthroplasty that was done on 12/11/2022 Morbid obesity due to excess calories, BMI 44.1 History of gastric bypass Hypertensive heart disease History of thyroid cancer Hypothyroidism Depressive disorder Congenital signal kidney Hyperlipidemia Plan No active bleeding and hemoglobin is stable at 8.6 Suspect diverticular bleed although the possibility of an upper GI bleed cannot be completely excluded May allow some clear liquid diet Preparation for colonoscopy tomorrow Stop antiplatelet agent and the patient is taken off the aspirin Normal saline through the 130s and hours Moderate hemoglobin Complete the second unit of packed of his transfusion and monitor the hemoglobin GI surgeries on the case Continue Carafate Continue Protonix Utilize [place] for pain control and morphine on as needed basis We'll continue to follow
--- NOTE | 2022-12-17 13:44 | P.PN ---
Progress Note - Text Progress Note Date: 12/17/22 - Chief Complaint Blood clots per rectum - History of Present Illness Very pleasant 67-year-old patient who follows with Dr. Loazda. Chronic stable medical conditions include , GERD, hypertension, hyperlipidemia, hypothyroid, hiatal hernia, gastric stricture with dysphagia with dilatation, unilateral left kidney. gastric bypass about 18 years ago. Had undergone right nephrectomy for congenital defect. December 11: left total knee arthroplasty. By Dr. Yanick Jin. Discharged the following day. Unremarkable stay otherwise. Patient now presents with blood clots via rectum. Epigastric discomfort. Tired rundown. No fever no chills. Patient's had prior diverticular bleed. Patient's family the bedside. Laying in bed. Patient was discharged with aspirin for DVT prophylaxis. Patient had EGD in May of this year at [facility]. Admitted with acute lower GI bleed. Source found. Possible gastric. Cannot rule out diverticular. December 16: Overnight patient dropped hemoglobin to 7.2. We'll to the ICU. 2 units of blood ordered and given by Dr. Teague. Patient's had no further bloody BM since yesterday. Blood pressure is stable. Cozaar is being resumed. IV fluid cutback. Patient on clear liquids and advanced to full liquids. No abdominal pain. December 17: No further lower GI bleed since admission. Blood pressure stable. No abdominal pain. Remains on clear liquid. Discussed with patient. Follow with surgery. Active Medications Acetaminophen (Acetaminophen Tab 325 Mg Tab) 650 mg PO Q6HR PRN PRN Reason: Mild Pain or Fever > 100.5 Last Admin: 12/15/22 17:44 Dose: 650 mg Hydrocodone Bitart/Acetaminophen (Hydrocodone/Apap 5-325mg 1 Each Tab) 1 each PO Q6HR PRN PRN Reason: Pain Last Admin: 12/17/22 09:34 Dose: 1 each Atorvastatin Calcium (Atorvastatin 10 Mg Tab) 10 mg PO DAILY [facility] Last Admin: 12/17/22 08:09 Dose: 10 mg Bupropion HCl (Bupropion Xl 150 Mg Tab.Er.24h) 300 mg PO DAILY [facility] Last Admin: 12/17/22 08:09 Dose: 300 mg Piperacillin Sod/Tazobactam (Sod 3.375 gm/ Sodium Chloride) 100 mls @ 25 mls/hr IVPB Q8HR [facility]; Protocol Last Admin: 12/17/22 08:08 Dose: 25 mls/hr Sodium Chloride (Saline 0.9%) 1,000 mls @ 50 mls/hr IV .Q20H [facility] Last Admin: 12/16/22 22:19 Dose: 50 mls/hr Levothyroxine Sodium (Levothyroxine 100 Mcg Tab) 200 mcg PO 0630 [facility] Last Admin: 12/17/22 06:32 Dose: 200 mcg Loratadine (Loratadine 10 Mg Tab) 10 mg PO DAILY PRN PRN Reason: Allergy Symptoms Losartan Potassium (Losartan 50 Mg Tab) 50 mg PO DAILY [facility] Last Admin: 12/17/22 08:09 Dose: 50 mg Morphine Sulfate (Morphine Sulfate 4 Mg/Ml Syringe) 4 mg IV Q4HR PRN PRN Reason: Severe Pain (Scale 7 to 10) Morphine Sulfate (Morphine Sulfate 2 Mg/Ml Syringe) 2 mg IVP Q4HR PRN PRN Reason: Pain/Discomfort Last Admin: 12/17/22 13:15 Dose: 2 mg Naloxone HCl (Naloxone 0.4 Mg/Ml 1 Ml Vial) 0.2 mg IV Q2M PRN PRN Reason: Opioid Reversal Patient's Own ( Dulaglutide [ Trulicity] 0.75 Mg/0 .5 Ml Each) 0.75 mg SQ MO [facility] Ondansetron HCl (Ondansetron 4 Mg/2 Ml Vial) 4 mg IVP Q8HR PRN PRN Reason: Nausea And Vomiting Pantoprazole Sodium (Pantoprazole 40 Mg Tablet) 40 mg PO AC-BID [facility] Last Admin: 12/17/22 06:31 Dose: 40 mg Sucralfate (Sucralfate 1 Gm Tab) 1 gm PO BID [facility] Last Admin: 12/17/22 08:09 Dose: 1 gm Social history: No smoking or alcohol. . Physical examination: VITAL SIGNS: 98.9, 82, 16, 161/99, 97% room air GENERAL: BMI 44.3, laying in bed, comfortable EYES: Pupils equal. Conjunctiva pale HEENT: External appearance of nose and ears normal, oral cavity grossly normal. NECK: JVD not raised; masses not palpable. HEART: First and second heart sounds are normal; no edema. LUNGS: Respiratory rate normal; clear to auscultation. ABDOMEN: Soft,no tenderness, liver spleen not palpable, no masses palpable. PSYCH: Alert and oriented x3; mood and affect normal. MUSCULOSKELETAL:No Clubbing/cyanosis;muscles-grossly intact. Incision over the left knee. OA. INVESTIGATIONS, reviewed in the clinical context: December 17: Hemoglobin 8.6 potassium 3.5 creatinine 0.81 December 16: White count is 6.8 hemoglobin 7.[address] abdomen and pelvis: Stable colonic diverticulosis. Stable in the distal sigmoid indicating prior resection. And reanastomosis. Immanuel-en-Y gastric bypass redemonstrated. Possible hepatic steatosis. December 15: White count 7 hemoglobin 8.9 platelets 125 sodium 139 potassium 3.6 creatinine 0.9 December 12: White count 9.6 hemoglobin 12.4 platelets 126 12/01/2022: hemoglobin 14.8 Assessment and plan: -Acute GI bleed suspect to be upper with epigastric discomfort. Presenting with blood clots. known to Dr. Dixon from general surgery. PPI. Stop aspirin Follow with surgical team. -Acute GI blood loss anemia. Hemoglobin prior to surgery was 14.8. When discharge was 12.4. Today down to 7.3: Worsening 2 units of blood received on December 16 -Left total knee arthroplasty. On 12/12/[address] Yanick Jin. -Immanuel-en-Y gastric bypass surgery about 18 years ago -Hyperlipidemia Lipitor 10 mg a day -Diabetes mellitus type 2 Follow Accu-Cheks ascites). Trulicity. -Hypothyroid Synthroid 200 g a day -Essential hypertension Cozaar -hold for now -Depression/anxiety otherwise specified Wellbutrin XL. -Morbid obesity BMI 44. Prior history of gastric bypass over 18 years ago. Weight loss measures. Discussed with patient , stable for transfer to telemetry floor. Thank you Dr. Dixon. Past Medical History Past Medical History: Diabetes Mellitus, GERD/Reflux, GI Bleed, Hyperlipidemia, Hypertension, Renal Disease, Thyroid Disorder Additional Past Medical History / Comment(s): Hiatal hernia, diverticulitis w/ lower GI bleed, gastric stricture/dysphagia w/ dilation, gastric benign polyp, NIDDM type II-no longer on meds since wt loss, GI bleed in "old stomach" (hx gastric bypass, GI bleed R/T stomach that is not used). HAS ONLY LEFT KIDNEY History of Any Multi-Drug Resistant Organisms: None Reported Past Surgical History: Joint Replacement Additional Past Surgical History / Comment(s): R nephrectomy(congental defect)/ureterectomy, thyroidectomy, Immanuel en Y gastric bypass EGD with dilation, colonoscopy, hysteroscopy D&C x2, Rt breast benign biopsy; colon resection 06/17/2020. Past Anesthesia/Blood Transfusion Reactions: Previous Problems w/ Anesthesia, Motion Sickness, Postoperative Nausea & Vomiting (PONV) Additional Past Anesthesia/Blood Transfusion Reaction / Comm: Hard time awakening from anesthesia-" TAKES LONGER TO WAKE UP" Past Psychological History: Anxiety Smoking Status: Former smoker Past Alcohol Use History: None Reported Past Drug Use History: None Reported - Past Family History Father Family Medical History: Cancer Additional Family Medical History / Comment(s): Lung cancer. Mother Family Medical History: Cancer Additional Family Medical History / Comment(s): Breast cancer. Sister(s) Family Medical History: Cancer Additional Family Medical History / Comment(s): 2 SISTERS HAD BREAST CANCER, 1 HAS BLADDER CANCER. Brother(s) Family Medical History: Cancer Additional Family Medical History / Comment(s): Brother is living. He had a [place] at the age of 50yrs. Lung cancer.
[2022-12-17] MEDS ORDERED: SODIUM CHLORIDE 0.9% 1,000 ML IV SCH (15:45)
[2022-12-17 16:03] LABS: Glucose,Whole Blood 134 mg/dL (70-110)
[2022-12-17] MEDS ORDERED: Potassium Replacement Protocol 1 EACH MISC MISCELLANE PRN (16:11)
[2022-12-17] MEDS ORDERED: SENNOSIDES 8.6 MG TAB PO PRN (17:23)
[2022-12-17] MEDS: ACETAMINOPHEN TAB 325 MG TAB PO PRN (18:10)
[2022-12-17] MEDS: SODIUM CHLORIDE 0.9% 1,000 ML IV SCH (23:28)
[2022-12-18 05:35] LABS: Anisocytosis Slight; Basophils % (A) 1 %; Eosinophils # (A) 0.2 k/uL (0-0.7); Eosinophils % (A) 3 %; HCT 29.4 % (34.0-46.0); HGB 9.6 gm/dL (11.4-16.0); Lymphocytes # (A) 1.2 k/uL (1.0-4.8); Lymphocytes % (A) 19 %; MCH 29.6 pg (25.0-35.0); MCHC 32.8 g/dL (31.0-37.0); MCV 90.4 fL (80.0-100.0); Mean Platelet Volume 8.1; Monocytes # (A) 0.5 k/uL (0-1.0); Monocytes % (A) 7 %; Neutrophils # (A) 4.7 k/uL (1.3-7.7); Neutrophils % (A) 69 %; Platelet Count 157 k/uL (150-450); RBC 3.25 m/uL (3.80-5.40); RDW 16.6 % (11.5-15.5); WBC 6.7 k/uL (3.8-10.6)
[2022-12-18 06:05] LABS: African American GFR (CKD) >90 (>60 ml/min/1.73 sqM); Anion Gap 5 mmol/L; Blood Urea Nitrogen 10 mg/dL (7-17); Calcium 7.4 mg/dL (8.4-10.2); Carbon Dioxide 24 mmol/L (22-30); Chloride 109 mmol/L (98-107); Glucose 94 mg/dL (74-99); Non-African American GFR(CKD) 87 (>60 ml/min/1.73 sqM); Potassium 3.9 mmol/L (3.5-5.1); Sodium 138 mmol/L (137-145)
[2022-12-18] MEDS: HYDROcodone/APAP 5-325MG 1 EACH TAB PO PRN ×4 (06:13→23:44)
[2022-12-18] MEDS: PANTOPRAZOLE 40 MG TABLET PO SCH ×2 (06:14→14:51)
[2022-12-18] MEDS: LEVOTHYROXINE 100 MCG TAB PO SCH (06:14)
[2022-12-18] MEDS: SODIUM CHLORIDE 0.9% 1,000 ML IV SCH ×2 (06:17→08:59)
[2022-12-18] MEDS ORDERED: POTASSIUM CHLORIDE ER 20 MEQ TAB.ER PO SCH (07:00)
[2022-12-18] MEDS: LOSARTAN 50 MG TAB PO SCH (08:15)
[2022-12-18] MEDS: buPROPion XL 150 MG TAB.ER.24H PO SCH (08:15)
[2022-12-18] MEDS: PIPERACILLIN-TAZOBACTAM 3.375 GM in SODIUM CHLORIDE 0.9% 100 ML IVPB SCH ×3 (08:15→23:42)
[2022-12-18] MEDS: ATORVASTATIN 10 MG TAB PO SCH (08:16)
[2022-12-18] MEDS: SUCRALFATE 1 GM TAB PO SCH ×2 (08:19→21:00)
[2022-12-18] MEDS ORDERED: PATIENT'S OWN (Dulaglutide [Trulicity] 0.75 MG/0.5 ML Each) SQ SCH (09:00)
[2022-12-18] MEDS: MORPHINE SULFATE 2 MG/ML SYRINGE IVP PRN ×3 (10:29→20:00)
--- NOTE | 2022-12-18 12:01 | P.PN ---
Subjective Progress Note Date: 12/18/22 Principal diagnosis: Acute GI bleeding This is a 67-year-old female patient, who is morbidly obese with previous episodes of GI bleeding and was post gastric bypass surgery was coming into the hospital because of the current and ongoing GI bleed. The patient had at least 8 episodes of maroon colored stool yesterday. No melena. No hematemesis. No abdominal pain. The patient is known to have previous episode of GI bleed. The patient had a bleeding back in May 2020 and this was attributed to diverticular bleed and subsequently in March 2021 and this is attributed to a gastrojejunal ulcer. Following her left knee arthroplasty, the patient was given aspirin and she is coming in for another episode of GI bleed. The patient has a drop in hemoglobin from 16 down to 7.3. She has received a unit of packed RBC and a second unit is to follow. General surgery is on the case. She is hemodynamically stable. CAT scan of the abdomen was done and the patient was fo und to have post gastric bypass changes, small hiatal hernia, colonic diverticulosis more extensive in the sigmoid area and possible hepatic steatosis. The patient is post cholecystectomy. No active bleeding this morning. Granulation profile is within normal limits. Platelet count is above 100 K. No chest pain. No shortness of breath. She is alert and awake. On today's evaluation of 12/17/2022, the patient is not showing any signs of bleeding, the patient is hemodynamically stable. The patient has remained nothing by mouth overnight. The patient is currently off aspirin. The patient got transfused with a total of 2 units of packed RBC since admission and the hemoglobin today's of 8.60 stable compared to yesterday. No nausea. No vomiting. No emesis. Potassium levels at 3.5, replaced, BUN is at 8 with a creatinine of 0.8 and sodium level is at 138. The white cell count at 6.7. Reevaluated today on 12/18/2022, patient remains in the ICU, she received so far 2 units of packed RBCs since admission and hemoglobin today is 9.6. Patient was supposed to have EGD today, but this was later canceled by general surgery on the case. Patient has no active signs of bleeding at this point. She is hemodynamically stable. She had a recent left total knee arthroplasty on 12/11. And she had previous episodes of bleeding in the past. At one point her bleeding was gastrojejunal in nature and at one point is was diverticular in nature. At any rate presently the patient is hemodynamically stable, doing well, and I plan to transfer the patient out of the ICU to a regular medical floor. WBC count today 6.7 hemoglobin is 9.6 electrodes are normal renal profile is normal Objective - Vital Signs Vital signs: Vital Signs Temp 98.2 F 12/18/22 08:00 Pulse 99 12/18/22 08:00 Resp 15 12/18/22 08:00 BP 149/87 12/18/22 08:00 Pulse Ox 95 12/18/22 08:00 FiO2 Intake & Output 12/17/22 12/18/22 12/18/22 18:59 06:59 18:59 Intake Total 1360 370 360 Output Total 1750 3650 1200 Balance -390 -3280 -840 Weight 115.9 kg Intake: IV 460 120 120 Invasive Line 1 10 Piperacillin-Tazobactam 3 100 .375 gm In Sodium Chloride 0.9% 100 ml @ 25 mls/hr IVPB Q8HR [facility] Rx# :[id number] Sodium Chloride 0.9% 1, 460 120 10 000 ml @ 50 mls/hr IV . Q20H [facility] Rx#:[id number] Oral 900 250 240 Output: Urine 1750 3650 1200 Other: Voiding Method External Catheter External Catheter - Exam Physical Exam: Revealed 67-year-old female in no distress, on room air. Head: Atraumatic, normocephalic. HEENT:[Neck is supple.] [No neck masses.] [No thyromegaly.] [No JVD.] Chest: [Clear throughout, no crackles, no rhonchi, no wheezes.] Cardiac Exam: [Normal S1 and S2, no S3 gallop, no murmur.] Abdomen: [Soft, nontender, no megaly, no rebound, no guarding, normal bowel sounds.] Extremities: Incision over the left knee is clean areas of ecchymosis noted in the left calf region related to recent knee surgery. [No clubbing, no edema, no cyanosis.] Neurological Exam: [No focal neurologic deficit.] Alert oriented 3 Psychiatric: Normal mood affect and normal mental status examination. Skin: No rashes except she does have areas of ecchymosis in the left knee and left calf region. - Labs CBC & Chem 7: 12/18/22 04:59 12/18/22 04:59 Labs: Abnormal Lab Results - Last 24 Hours (Table) 12/17/22 12/18/22 12/18/22 Range/Units 16:01 04:59 04:59 RBC 3.25 L (3.80-5.40) m/uL Hgb 9.6 L (11.4-16.0) gm/dL Hct 29.4 L (34.0-46.0) % RDW 16.6 H (11.5-15.5) % Chloride 109 H (98-107) mmol/L POC Glucose (mg/dL) 134 H (70-110) mg/dL Calcium 7.4 L (8.4-10.2) mg/dL Microbiology - Last 24 Hours (Table) 12/15/22 10:30 Blood Culture - Preliminary Blood 12/15/22 10:15 Blood Culture - Preliminary Blood Assessment and Plan Assessment: Impression: Acute GI bleeding, presently stable patient did require 2 units of packed RBCs since admission hemoglobin today is 9.6 Acute blood loss anemia Recurrent history of GI bleeding in June 01 and in March 03 History of incarcerated ventral hernia status post repair in August 01 History of recent left total knee arthroplasty History of gastric bypass surgery Benign essential hypertension History of thyroid cancer Congenital single kidney History of depression Dyslipidemia Recommendation: Will recommend transfer to a regular medical floor Continue close monitoring of her CBC/hemoglobin Continue to monitor for any active bleeding from the GI tract Continue Carafate and Protonix Make sure patient is not taking any anticoagulation therapy Surgery/general surgery on the case for her GI bleeding at this point no plans for EGD or colonoscopy Prognosis seems to be relatively guarded. We will continue to follow. Time with Patient: Less than 30
--- NOTE | 2022-12-18 15:22 | P.PN ---
Subjective Progress Note Date: 12/18/22 CHIEF COMPLAINT: GI bleed HISTORY OF PRESENT ILLNESS: Patient is currently in the ICU. She's had no furt her rectal bleeding or bowel movement since Sunday. She denies any hematemesis. Aspirin remained on hold. Hemoglobin is up from 8.6-9.6 PHYSICAL EXAM: VITAL SIGNS: Reviewed. GENERAL: Well-developed in no acute distress. HEENT: No sclera icterus. Extraocular movements grossly intact. Moist buccal mucosa. Head is atraumatic, normocephalic. ABDOMEN: Soft. Nondistended. Nontender. NEUROLOGIC: Alert and oriented. Cranial nerves II through XII grossly intact. ASSESSMENT: 1. Acute GI bleed likely due to diverticular bleed 2. History of diverticulosis 3. History of Immanuel-en-Y gastric bypass 4. History of gastric ulcers PLAN: -Advance diet to regular -Continue to monitor for any signs or symptoms of bleeding -No plans for endoscopy at this time -Continue to hold aspirin -Continue to monitor hemoglobin -Patient can be transferred out of the ICU to regular medical floor Physician Marketing Assistant Manager note has been reviewed by physician. Signing provider agrees with the documented findings, assessment, and plan of care. Objective - Vital Signs Vital signs: Vital Signs Temp 98.5 F 12/18/22 04:00 Pulse 78 12/18/22 07:00 Resp 13 12/18/22 07:00 BP 133/81 12/18/22 07:00 Pulse Ox 96 12/18/22 07:00 FiO2 Intake & Output 12/17/22 12/18/22 12/18/22 18:59 06:59 18:59 Intake Total 1360 370 10 Output Total 1750 3650 0 Balance -390 -3280 10 Weight 115.9 kg Intake: IV 460 120 10 Sodium Chloride 0.9% 1, 460 120 10 000 ml @ 50 mls/hr IV . Q20H [facility] Rx#:[id number] Oral 900 250 Output: Urine 1750 3650 0 Other: Voiding Method External Catheter External Catheter - Labs CBC & Chem 7: 12/18/22 04:59 12/18/22 04:59 Labs: Abnormal Lab Results - Last 24 Hours (Table) 12/17/22 12/17/22 12/18/22 Range/Units 03:39 16:01 04:59 RBC 3.25 L (3.80-5.40) m/uL Hgb 9.6 L (11.4-16.0) gm/dL Hct 29.4 L (34.0-46.0) % RDW 16.6 H (11.5-15.5) % Chloride (98-107) mmol/L POC Glucose (mg/dL) 134 H (70-110) mg/dL Hemoglobin A1c 6.6 H (<=6.0) % Calcium (8.4-10.2) mg/dL 12/18/22 Range/Units 04:59 RBC (3.80-5.40) m/uL Hgb (11.4-16.0) gm/dL Hct (34.0-46.0) % RDW (11.5-15.5) % Chloride 109 H (98-107) mmol/L POC Glucose (mg/dL) (70-110) mg/dL Hemoglobin A1c (<=6.0) % Calcium 7.4 L (8.4-10.2) mg/dL Microbiology - Last 24 Hours (Table) 12/15/22 10:30 Blood Culture - Preliminary Blood 12/15/22 10:15 Blood Culture - Preliminary Blood
[2022-12-18] MEDS: polyethylene glycoL 3350 17 GM POWD.PACK PO SCH (16:56)
--- NOTE | 2022-12-18 17:03 | P.PN ---
Progress Note - Text Progress Note Date: 12/18/22 - Chief Complaint Blood clots per rectum - History of Present Illness Very pleasant 67-year-old patient who follows with Dr. Lozada. Chronic stable medical conditions include , GERD, hypertension, hyperlipidemia, hypothyroid, hiatal hernia, gastric stricture with dysphagia with dilatation, unilateral left kidney. gastric bypass about 18 years ago. Had undergone right nephrectomy for congenital defect. December 11: left total knee arthroplasty. By Dr. Yanick Jin. Discharged the following day. Unremarkable stay otherwise. Patient now presents with blood clots via rectum. Epigastric discomfort. Tired rundown. No fever no chills. Patient's had prior diverticular bleed. Patient's family the bedside. Laying in bed. Patient was discharged with aspirin for DVT prophylaxis. Patient had EGD in May of this year at [facility]. Admitted with acute lower GI bleed. Source found. Possible gastric. Cannot rule out diverticular. December 16: Overnight patient dropped hemoglobin to 7.2. We'll to the ICU. 2 units of blood ordered and given by Dr. Teague. Patient's had no further bloody BM since yesterday. Blood pressure is stable. Cozaar is being resumed. IV fluid cutback. Patient on clear liquids and advanced to full liquids. No abdominal pain. December 17: No further lower GI bleed since admission. Blood pressure stable. No abdominal pain. Remains on clear liquid. Discussed with patient. Follow with surgery. December 18: Up in a chair. No abdominal pain. No bowel movement. Diet advanced to regular per surgery. No endoscopy per surgery at this point. Aspirin continues to be held. Active Medications Acetaminophen (Acetaminophen Tab 325 Mg Tab) 650 mg PO Q6HR PRN PRN Reason: Mild Pain or Fever > 100.5 Last Admin: 12/17/22 18:10 Dose: 650 mg Hydrocodone Bitart/Acetaminophen (Hydrocodone/Apap 5-325mg 1 Each Tab) 1 each PO Q6HR PRN PRN Reason: Pain Last Admin: 12/18/22 12:20 Dose: 1 each Atorvastatin Calcium (Atorvastatin 10 Mg Tab) 10 mg PO DAILY [facility] Last Admin: 12/18/22 08:16 Dose: 10 mg Bupropion HCl (Bupropion Xl 150 Mg Tab.Er.24h) 300 mg PO DAILY [facility] Last Admin: 12/18/22 08:15 Dose: 300 mg Piperacillin Sod/Tazobactam (Sod 3.375 gm/ Sodium Chloride) 100 mls @ 25 mls/hr IVPB Q8HR [facility]; Protocol Last Admin: 12/18/22 14:52 Dose: 25 mls/hr Lactulose (Lactulose 20 Gm/30 Ml Cup) 30 gm PO BID [facility] Levothyroxine Sodium (Levothyroxine 100 Mcg Tab) 200 mcg PO 0630 [facility] Last Admin: 12/18/22 06:14 Dose: 200 mcg Loratadine (Loratadine 10 Mg Tab) 10 mg PO DAILY PRN PRN Reason: Allergy Symptoms Losartan Potassium (Losartan 50 Mg Tab) 50 mg PO DAILY [facility] Last Admin: 12/18/22 08:15 Dose: 50 mg Miscellaneous Information (Potassium Replacement Protocol 1 Each Misc) 1 each MISCELLANE DAILY PRN; Protocol PRN Reason: Per Protocol Morphine Sulfate (Morphine Sulfate 4 Mg/Ml Syringe) 4 mg IV Q4HR PRN PRN Reason: Severe Pain (Scale 7 to 10) Last Admin: 12/17/22 18:10 Dose: 4 mg Morphine Sulfate (Morphine Sulfate 2 Mg/Ml Syringe) 2 mg IVP Q4HR PRN PRN Reason: Pain/Discomfort Last Admin: 12/18/22 14:42 Dose: 2 mg Naloxone HCl (Naloxone 0.4 Mg/Ml 1 Ml Vial) 0.2 mg IV Q2M PRN PRN Reason: Opioid Reversal Patient's Own ( Dulaglutide [ Trulicity] 0.75 Mg/0 .5 Ml Each) 0.75 mg SQ MO [facility] Last Admin: 12/18/22 08:15 Dose: Not Given Ondansetron HCl (Ondansetron 4 Mg/2 Ml Vial) 4 mg IVP Q8HR PRN PRN Reason: Nausea And Vomiting Pantoprazole Sodium (Pantoprazole 40 Mg Tablet) 40 mg PO AC-BID [facility] Last Admin: 12/18/22 14:51 Dose: 40 mg Polyethylene Glycol (Polyethylene Glycol 3350 17 Gm Powd.Pack) 17 gm PO DAILY [facility] Last Admin: 12/18/22 16:56 Dose: 17 gm Senna (Sennosides 8.6 Mg Tab) 8.6 mg PO BID PRN PRN Reason: Constipation Last Admin: 12/17/22 20:21 Dose: 8.6 mg Sucralfate (Sucralfate 1 Gm Tab) 1 gm PO BID [facility] Last Admin: 12/18/22 08:19 Dose: 1 gm Social history: No smoking or alcohol. . Physical examination: VITAL SIGNS: 98.8, 78, 18, 120/68, 96% room air GENERAL: A been chair, comfortable EYES: Pupils equal. Conjunctiva pale HEENT: External appearance of nose and ears normal, oral cavity grossly normal. NECK: JVD not raised; masses not palpable. HEART: First and second heart sounds are normal; no edema. LUNGS: Respiratory rate normal; clear to auscultation. ABDOMEN: Soft,no tenderness, liver spleen not palpable, no masses palpable. PSYCH: Alert and oriented x3; mood and affect normal. MUSCULOSKELETAL:No Clubbing/cyanosis;muscles-grossly intact. Incision over the left knee. OA. INVESTIGATIONS, reviewed in the clinical context: December 18: Hemoglobin 9.6 potassium 3.9 December 17: Hemoglobin 8.6 potassium 3.5 creatinine 0.81 December 16: White count is 6.8 hemoglobin 7.[address] abdomen and pelvis: Stable colonic diverticulosis. Stable in the distal sigmoid indicating prior resection. And reanastomosis. Immanuel-en-Y gastric bypass redemonstrated. Possible hepatic steatosis. December 15: White count 7 hemoglobin 8.9 platelets 125 sodium 139 potassium 3.6 creatinine 0.9 December 12: White count 9.6 hemoglobin 12.4 platelets 126 12/01/2022: hemoglobin 14.8 Assessment and plan: -Acute GI bleed suspect to be upper with epigastric discomfort. Presenting with blood clots. : Not clinically stabilized known to Dr. Dixon from general surgery. PPI. Stop aspirin Follow with surgical team. -Acute GI blood loss anemia. Hemoglobin prior to surgery was 14.8. When discharge was 12.4. Decreased to 7.3: Stable 2 units of blood given December 16. No hemoglobin 9.6 -Left total knee arthroplasty. On 12/12/[address] Yanick Jin. Venodyne boots /GIORGI stockings -Immanuel-en-Y gastric bypass surgery about 18 years ago -Hyperlipidemia Lipitor 10 mg a day -Diabetes mellitus type 2 Follow Accu-Cheks ascites). Trulicity. -Hypothyroid Synthroid 200 g a day -Essential hypertension Cozaar -hold for now -Depression/anxiety otherwise specified Wellbutrin XL. -Morbid obesity BMI 44. Prior history of gastric bypass over 18 years ago. Weight loss measures. Discussed with patient , on endoscopy per surgery. Diet has been advanced. Thank you Dr. Dixon. Past Medical History Past Medical History: Diabetes Mellitus, GERD/Reflux, GI Bleed, Hyperlipidemia, Hypertension, Renal Disease, Thyroid Disorder Additional Past Medical History / Comment(s): Hiatal hernia, diverticulitis w/ lower GI bleed, gastric stricture/dysphagia w/ dilation, gastric benign polyp, NIDDM type II-no longer on meds since wt loss, GI bleed in "old stomach" (hx gastric bypass, GI bleed R/T stomach that is not used). HAS ONLY LEFT KIDNEY History of Any Multi-Drug Resistant Organisms: None Reported Past Surgical History: Joint Replacement Additional Past Surgical History / Comment(s): R nephrectomy(congental defect)/ureterectomy, thyroidectomy, Immanuel en Y gastric bypass EGD with dilation, colonoscopy, hysteroscopy D&C x2, Rt breast benign biopsy; colon resection 06/17/2020. Past Anesthesia/Blood Transfusion Reactions: Previous Problems w/ Anesthesia, Motion Sickness, Postoperative Nausea & Vomiting (PONV) Additional Past Anesthesia/Blood Transfusion Reaction / Comm: Hard time awakening from anesthesia-" TAKES LONGER TO WAKE UP" Past Psychological History: Anxiety Smoking Status: Former smoker Past Alcohol Use History: None Reported Past Drug Use History: None Reported - Past Family History Father Family Medical History: Cancer Additional Family Medical History / Comment(s): Lung cancer. Mother Family Medical History: Cancer Additional Family Medical History / Comment(s): Breast cancer. Sister(s) Family Medical History: Cancer Additional Family Medical History / Comment(s): 2 SISTERS HAD BREAST CANCER, 1 HAS BLADDER CANCER. Brother(s) Family Medical History: Cancer Additional Family Medical History / Comment(s): Brother is living. He had a AK at the age of 50yrs. Lung cancer.
[2022-12-18] MEDS: LACTULOSE 20 GM/30 ML CUP PO SCH (21:00)
[2022-12-19] MEDS: PANTOPRAZOLE 40 MG TABLET PO SCH ×2 (05:10→17:49)
[2022-12-19] MEDS: LEVOTHYROXINE 100 MCG TAB PO SCH (05:10)
[2022-12-19] MEDS: HYDROcodone/APAP 5-325MG 1 EACH TAB PO PRN ×4 (05:14→23:03)
[2022-12-19 06:24] LABS: Glucose,Whole Blood 123 mg/dL (70-110)
[2022-12-19] MEDS: polyethylene glycoL 3350 17 GM POWD.PACK PO SCH (09:35)
[2022-12-19] MEDS: PIPERACILLIN-TAZOBACTAM 3.375 GM in SODIUM CHLORIDE 0.9% 100 ML IVPB SCH ×3 (09:35→23:03)
[2022-12-19 09:36] VITALS: RESP 16
[2022-12-19] MEDS: SUCRALFATE 1 GM TAB PO SCH (09:36)
[2022-12-19] MEDS: ATORVASTATIN 10 MG TAB PO SCH (09:36)
[2022-12-19] MEDS: buPROPion XL 150 MG TAB.ER.24H PO SCH (09:36)
[2022-12-19] MEDS: LOSARTAN 50 MG TAB PO SCH (09:36)
[2022-12-19] MEDS: LACTULOSE 20 GM/30 ML CUP PO SCH ×2 (09:48→19:45)
--- NOTE | 2022-12-19 11:09 | P.PN ---
Subjective We are covering Dr. Renteria are starting 12/19 Very pleasant 67-year-old patient who follows with Dr. Lozada. Chronic stable medical conditions include , GERD, hypertension, hyperlipidemia, hypothyroid, hiatal hernia, gastric stricture with dysphagia with dilatation, unilateral left kidney. gastric bypass about 18 years ago. Had undergone right nephrectomy for congenital defect. December 11: left total knee arthroplasty. By Dr. Yanick Jin. Discharged the following day. Unremarkable stay otherwise. Patient now presents with blood clots via rectum. Epigastric discomfort. Tired rundown. No fever no chills. Patient's had prior diverticular bleed. Patient's family the bedside. Laying in bed. Patient was discharged with aspirin for DVT prophylaxis. Patient had EGD in May of this year at [facility]. Admitted with acute lower GI bleed. Source found. Possible gastric. Cannot rule out diverticular. December 16: Overnight patient dropped hemoglobin to 7.2. We'll to the ICU. 2 units of blood ordered and given by Dr. Teague. Patient's had no further bloody BM since yesterday. Blood pressure is stable. Cozaar is being resumed. IV fluid cutback. Patient on clear liquids and advanced to full liquids. No a bdominal pain. December 17: No further lower GI bleed since admission. Blood pressure stable. No abdominal pain. Remains on clear liquid. Discussed with patient. Follow with surgery. December 18: Up in a chair. No abdominal pain. No bowel movement. Diet advanced to regular per surgery. No endoscopy per surgery at this point. Aspirin continues to be held. 12/19/2022 This is a pleasant 67 years old lady who presents initially because of 3 episodes of bright red blood per rectum on 12/15. Of note on 12/11-12/12 patient underwent left total knee arthroplasty and she was started on aspirin for DVT prophylaxis. She was discharged on aspirin 325 mg twice a day[address] of the abdomen and pelvis showing diverticulitis with liquid stool Aspirin was stopped on admission since with no more GI bleed. Patient denies abdominal pain any other symptoms and she tolerates diet. Also patient on Zosyn started in the emergency room physician but patient with no fever or leukocytosis. Also patient was not on antibiotic at home. Continue with Protonix and Carafate. Objective - Vital Signs Vital signs: Vital Signs Temp 98.3 F 12/19/22 08:00 Pulse 78 12/19/22 08:00 Resp 16 12/19/22 08:00 BP 151/82 12/19/22 08:00 Pulse Ox 98 12/19/22 08:00 FiO2 Intake & Output 12/18/22 12/19/22 12/19/22 18:59 06:59 18:59 Intake Total 1600 230 Output Total 3700 450 500 Balance -2100 -220 -500 Intake: IV 120 110 Invasive Line 1 10 10 Piperacillin-Tazobactam 3 100 100 .375 gm In Sodium Chloride 0.9% 100 ml @ 25 mls/hr IVPB Q8HR [facility] Rx# :[id number] Sodium Chloride 0.9% 1, 10 000 ml @ 50 mls/hr IV . Q20H [facility] Rx#:[id number] Oral 1480 120 Output: Urine 3700 450 500 Other: Voiding Method External Catheter - Exam GENERAL: The patient is alert and oriented x3, not in any acute distress. Well developed, well nourished. HEENT: Pupils are round and equally reacting to light. EOMI. No scleral icterus. No conjunctival pallor. Normocephalic, atraumatic. No pharyngeal erythema. No thyromegaly. CARDIOVASCULAR: S1 and S2 present. No murmurs, rubs, or gallops. PULMONARY: Chest is clear to auscultation, no wheezing , no crackles. ABDOMEN: Soft, nontender, nondistended, normoactive bowel sounds. No palpable organomegaly. MUSCULOSKELETAL: No joint swelling or deformity. -EXTREMITIES: No cyanosis, clubbing, or pedal edema. Scar of the left knee with wound healing NEUROLOGICAL: Gross neurological examination did not reveal any focal deficits. SKIN: No rashes. no petechiae. - Labs CBC & Chem 7: 12/18/22 04:59 12/18/22 04:59 Labs: Abnormal Lab Results - Last 24 Hours (Table) 12/19/22 Range/Units 06:22 POC Glucose (mg/dL) 123 H (70-110) mg/dL Microbiology - Last 24 Hours (Table) 12/15/22 10:30 Blood Culture - Preliminary Blood 12/15/22 10:15 Blood Culture - Preliminary Blood Assessment and Plan Assessment: -Acute GI bleed suspect , bright red blood per rectum on admission. Resolved now clinically stabilized known to Dr. Dixon from general surgery. PPI. aspirin is already stopped Follow with surgical primary team. -Acute GI blood loss anemia. Hemoglobin prior to surgery was 14.8. When discharge was 12.4. Decreased to 7.3: Stable 2 units of blood given December 16. hemoglobin 9.6 -Left total knee arthroplasty. On 12/12/[address] Yanick Jin. Venodyne boots /GIORGI stockings -Immanuel-en-Y gastric bypass surgery about 18 years ago -Hyperlipidemia Lipitor 10 mg a day -Diabetes mellitus type 2 Follow Accu-Cheks ascites). Trulicity. -Hypothyroid Synthroid 200 g a day -Essential hypertension Cozaar -hold for now -Depression/anxiety otherwise specified Wellbutrin XL. -Morbid obesity BMI 44. Prior history of gastric bypass over 18 years ago. Weight loss measures.
[2022-12-19 11:36] LABS: Glucose,Whole Blood 153 mg/dL (70-110)
--- NOTE | 2022-12-19 12:01 | P.CNOR ---
History of Present Illness - [facility] Consult date: 12/19/22 Requesting physician: Conor Renteria Consult reason: other (Status post left total knee arthroplasty follow-up) History of present illness: Patient is very pleasant 67-year-old female who is seen and examined at bedside for further evaluation of her left knee. She is status post left total knee arthroplasty performed on 12/11/2022. She does continue to have some pain at her left knee with some swelling. Her dressing remains clean, dry, and intact. She has been utilizing a walker to aid in ambulation. She denies any falls or injuries following discharge from the hospital. She is scheduled for follow up evaluation outpatient setting next week with Dr. Yanick Jin at [facility]. She presents to the hospital for further evaluation after noticing blood in the rectum. She was diagnosed with acute GI bleed. She is admitted to [facility]. Aspirin is currently on hold. She has a history of gastric bypass surgery performed approximately 18 years ago. She's been seen and examined by multiple medical providers including medicine a nd general surgery. She is having acute blood loss anemia. She was in the ICU. She did receive 2 units of packed red blood cells. She is since been transferred to [facility] care. Her most recent hemoglobin was 9.6. Past Medical History Past Medical History: Diabetes Mellitus, GERD/Reflux, GI Bleed, Hyperlipidemia, Hypertension, Renal Disease, Thyroid Disorder Additional Past Medical History / Comment(s): Hiatal hernia, diverticulitis w/ lower GI bleed, gastric stricture/dysphagia w/ dilation, gastric benign polyp, NIDDM type II-no longer on meds since wt loss, GI bleed in "old stomach" (hx gastric bypass, GI bleed R/T stomach that is not used). HAS ONLY LEFT KIDNEY History of Any Multi-Drug Resistant Organisms: None Reported Past Surgical History: Joint Replacement Additional Past Surgical History / Comment(s): R nephrectomy(congenital defect)/ureterectomy, thyroidectomy, Immanuel en Y gastric bypass EGD with dilation, colonoscopy, hysteroscopy D&C x2, Rt breast benign biopsy; colon resection 06/17/2020; left knee s/x 12/11/22 Past Anesthesia/Blood Transfusion Reactions: Previous Problems w/ Anesthesia, Mo tion Sickness, Postoperative Nausea & Vomiting (PONV) Additional Past Anesthesia/Blood Transfusion Reaction / Comm: Hard time awakening from anesthesia-" TAKES LONGER TO WAKE UP" , nausea Past Psychological History: Anxiety Additional Psychological History / Comment(s): .* Smoking Status: Former smoker Past Alcohol Use History: None Reported Additional Past Alcohol Use History / Comment(s): Pt was a light smoker from 1973 until 1984-3 cigarettes a day. Past Drug Use History: None Reported Additional Drug Use History / Comment(s): occ CBD oil - Past Family History Father Family Medical History: Cancer Additional Family Medical History / Comment(s): Lung cancer. Mother Family Medical History: Cancer Additional Family Medical History / Comment(s): Breast cancer. Sister(s) Family Medical History: Cancer Additional Family Medical History / Comment(s): 2 SISTERS HAD BREAST CANCER, 1 HAS BLADDER CANCER. Brother(s) Family Medical History: Cancer Additional Family Medical History / Comment(s): Brother is living. He had a NM at the age of 50yrs. Lung cancer. Medications and Allergies Home Medications Medication Instructions Recorded Confirmed Type buPROPion XL [Wellbutrin XL] 300 mg PO DAILY 07/29/18 12/15/22 History Levothyroxine Sodium [Synthroid] 200 mcg PO DAILY 04/28/20 12/15/22 History Atorvastatin [Lipitor] 10 mg PO DAILY 03/09/21 12/15/22 History hydroCHLOROthiazide 12.5 mg PO DAILY 03/09/21 12/15/22 History Cetirizine HCl [Zyrtec] 10 mg PO DAILY PRN 12/07/22 12/15/22 History Dulaglutide [Trulicity] 0.75 mg SQ MO 12/07/22 12/15/22 History Sucralfate [Carafate] 1 gm PO BID 12/07/22 12/15/22 History polyethylene glycoL 3350 [Miralax] 17 gm PO DAILY 12/07/22 12/15/22 History Aspirin 325 mg PO BID #60 tab 12/11/22 12/15/22 Rx HYDROcodone/APAP 7.5-325MG [[place] 1 - 2 tab PO Q6H PRN #32 tab 12/11/22 12/15/22 Rx 7.5-325] Sennosides [Senokot] 2 tab PO DAILY PRN #60 tablet 12/11/22 12/15/22 Rx Losartan [Cozaar] 50 mg PO DAILY 12/15/22 12/15/22 History Allergies Allergy/AdvReac Type Severity Reaction Status Date / Time prednisone Allergy Rash/Hives/ Verified 12/15/22 12:36 swelling Physical Examination Physical Exam Total Knee Arthroplasty: Status post surgical day number 8 Patient is awake, alert, and oriented 3 Vital signs stable Good chest excursion with deep inspiration and expiration Abdomen soft nontender No signs or symptoms of DVT; no calf pain Dressing is clean, dry, and intact over the left knee; no erythema, purulence, or signs of infection Mild generalized swelling with some bruising around the left knee Patient has full foot and ankle motion without difficulty bilateral lower extremities Dorsiflexion, plantar flexion, and extensor hallucis longus positive sustained bilaterally Neurovascular status left lower extremity intact Results - Labs Labs: Abnormal Lab Results - Last 24 Hours (Table) 12/19/22 12/19/22 Range/Units 06:22 11:35 POC Glucose (mg/dL) 123 H 153 H (70-110) mg/dL Microbiology - Last 24 Hours (Table) 12/15/22 10:30 Blood Culture - Preliminary Blood 12/15/22 10:15 Blood Culture - Preliminary Blood H & H 12/15/22 12/15/22 12/15/22 Range/Units 07:02 10:15 12:40 Hgb 12.0 16.0 D 8.9 L D (11.4-16.0) gm/dL Hct 36.5 49.4 H 26.9 L (34.0-46.0) % 12/16/22 12/16/22 12/16/22 Range/Units 01:12 03:59 14:22 Hgb 7.2 L D 7.3 L 8.7 L (11.4-16.0) gm/dL Hct 22.4 L 22.4 L 26.6 L (34.0-46.0) % 12/17/22 12/18/22 Range/Units 03:39 04:59 Hgb 8.6 L 9.6 L (11.4-16.0) gm/dL Hct 26.3 L 29.4 L (34.0-46.0) % Coagulation 12/15/22 Range/Units 07:02 INR 0.9 (<1.2) Result Diagrams: 12/18/22 04:59 12/18/22 04:59 Assessment and Plan Assessment: Assessment: Status post left total knee arthroplasty Left knee pain Acute GI bleed Anemia Hypertension Hyperlipidemia Hypothyroidism (1) Status post total left knee replacement Current Visit: Yes Status: Acute Code(s): Z96.652 - PRESENCE OF LEFT ARTIFICIAL KNEE JOINT SNOMED Code(s): 9797742462020 (2) Left knee pain Current Visit: Yes Status: Acute Code(s): M25.562 - PAIN IN LEFT KNEE S NOMED Code(s): 8331821562 (3) Hypertension Current Visit: Yes Status: Acute Code(s): I10 - ESSENTIAL (PRIMARY) HYPERTENSION SNOMED Code(s): 44785602 (4) Hyperlipidemia Current Visit: Yes Status: Acute Code(s): E78.5 - HYPERLIPIDEMIA, UNSPECIFIED SNOMED Code(s): 07879451 (5) Hypothyroidism Current Visit: Yes Status: Acute Code(s): E03.9 - HYPOTHYROIDISM, UNSPECIFIED SNOMED Code(s): 56268443 (6) Lower GI bleed Current Visit: Yes Status: Acute Code(s): K92.2 - GASTROINTESTINAL HEMORRHAGE, UNSPECIFIED SNOMED Code(s): 29118390 (7) Anemia Current Visit: No Status: Acute Code(s): D64.9 - ANEMIA, UNSPECIFIED SNOMED Code(s): 516818064 (8) Anemia associated with acute blood loss Current Visit: No Status: Acute Code(s): D62 - ACUTE POSTHEMORRHAGIC ANEMIA SNOMED Code(s): 157603719 Plan: Plan: 1. Patient to remain weight-bear as tolerated on the left lower extremity with the assistance of a walker; patient may work with physical therapy to increase mobility and ambulation 2. Continue pain control 3. Medicine to continue following the patient for his other medical diagnoses including GI bleed and anemia 4. Postoperative anticoagulation medication is currently on hold. This may be resumed per the recommendations of medicine and/or general surgery. 5. Patient may keep her surgical dressing intact over the left knee over the next 3 days. Currently, patient may shower with the dressing intact. In 3 days, dressing may be removed and the patient may shower without a dressing int act at that time. 6. Orthopedic standpoint, patient is clear for discharge following her left total knee arthroplasty. She is currently scheduled for further evaluation outpatient setting in approximately [address] Yanick Jin. We will plan to have her follow the scheduled appointment at [facility]. Time with Patient: Greater than 30 (Including obtaining history, physical examination, reviewing of imaging, and dictation.)
--- NOTE | 2022-12-19 12:45 | P.PN ---
Subjective Progress Note Date: 12/19/22 Principal diagnosis: Acute GI bleeding This is a 67-year-old female patient, who is morbidly obese with previous episodes of GI bleeding and was post gastric bypass surgery was coming into the hospital because of the current and ongoing GI bleed. The patient had at least 8 episodes of maroon colored stool yesterday. No melena. No hematemesis. No abdominal pain. The patient is known to have previous episode of GI bleed. The patient had a bleeding back in May 2020 and this was attributed to diverticular bleed and subsequently in March 2021 and this is attributed to a gastrojejunal ulcer. Following her left knee arthroplasty, the patient was given aspirin and she is coming in for another episode of GI bleed. The patient has a drop in hemoglobin from 16 down to 7.3. She has received a unit of packed RBC and a second unit is to follow. General surgery is on the case. She is hemodynamically stable. CAT scan of the abdomen was done and the patient was fo und to have post gastric bypass changes, small hiatal hernia, colonic diverticulosis more extensive in the sigmoid area and possible hepatic steatosis. The patient is post cholecystectomy. No active bleeding this morning. Granulation profile is within normal limits. Platelet count is above 100 K. No chest pain. No shortness of breath. She is alert and awake. On today's evaluation of 12/17/2022, the patient is not showing any signs of bleeding, the patient is hemodynamically stable. The patient has remained nothing by mouth overnight. The patient is currently off aspirin. The patient got transfused with a total of 2 units of packed RBC since admission and the hemoglobin today's of 8.60 stable compared to yesterday. No nausea. No vomiting. No emesis. Potassium levels at 3.5, replaced, BUN is at 8 with a creatinine of 0.8 and sodium level is at 138. The white cell count at 6.7. Reevaluated today on 12/18/2022, patient remains in the ICU, she received so far 2 units of packed RBCs since admission and hemoglobin today is 9.6. Patient was supposed to have EGD today, but this was later canceled by general surgery on the case. Patient has no active signs of bleeding at this point. She is hemodynamically stable. She had a recent left total knee arthroplasty on 12/11. And she had previous episodes of bleeding in the past. At one point her bleeding was gastrojejunal in nature and at one point is was diverticular in nature. At any rate presently the patient is hemodynamically stable, doing well, and I plan to transfer the patient out of the ICU to a regular medical floor. WBC count today 6.7 hemoglobin is 9.6 electrodes are normal renal profile is normal Patient was reevaluated today on 12/19/2022, she is now on the medical floor, doing well, relatively asymptomatic,, no symptoms of GI bleeding. Patient is hemodynamically stable. And I believe no plans for EGD or colonoscopy since the patient is having no active bleeding patient is being considered for discharge planning. Objective - Vital Signs Vital signs: Vital Signs Temp 98.3 F 12/19/22 08:00 Pulse 67 12/19/22 12:30 Resp 16 12/19/22 12:30 BP 146/64 12/19/22 12:30 Pulse Ox 100 12/19/22 12:30 FiO2 Intake & Output 12/18/22 12/19/22 12/19/22 18:59 06:59 18:59 Intake Total 1600 230 10 Output Total 3700 450 500 Balance -2100 -220 -490 Intake: IV 120 110 10 Invasive Line 1 10 10 10 Piperacillin-Tazobactam 3 100 100 .375 gm In Sodium Chloride 0.9% 100 ml @ 25 mls/hr IVPB Q8HR [facility] Rx# :[id number] Sodium Chloride 0.9% 1, 10 000 ml @ 50 mls/hr IV . Q20H [facility] Rx#:[id number] Oral 1480 120 Output: Urine 3700 450 500 Other: Voiding Method External Catheter External Catheter - Exam Physical Exam: Revealed 67-year-old female in no distress, on room air. Head: Atraumatic, normocephalic. HEENT:[Neck is supple.] [No neck masses.] [No thyromegaly.] [No JVD.] Chest: [Clear throughout, no crackles, no rhonchi, no wheezes.] Cardiac Exam: [Normal S1 and S2, no S3 gallop, no murmur.] Abdomen: [Soft, nontender, no megaly, no rebound, no guarding, normal bowel sounds.] Extremities: Incision over the left knee is clean , being addressed by orthopedic surgery Neurological Exam: [No focal neurologic deficit.] Alert oriented 3 Psychiatric: Normal mood affect and normal mental status examination. Skin: No rashes, ecchymosis in the left lower extremity remains - Labs CBC & Chem 7: 12/18/22 04:59 12/18/22 04:59 Labs: Abnormal Lab Results - Last 24 Hours (Table) 12/19/22 12/19/22 Range/Units 06:22 11:35 POC Glucose (mg/dL) 123 H 153 H (70-110) mg/dL Microbiology - Last 24 Hours (Table) 12/15/22 10:30 Blood Culture - Preliminary Blood 12/15/22 10:15 Blood Culture - Preliminary Blood Assessment and Plan Assessment: Impression: Acute GI bleeding, presently stable patient did require 2 units of packed RBCs since admission hemoglobin today is 9.6 Acute blood loss anemia Recurrent history of GI bleeding in June 01 and in March 03 History of incarcerated ventral hernia status post repair in August 01 History of recent left total knee arthroplasty History of gastric bypass surgery Benign essential hypertension History of thyroid cancer Congenital single kidney History of depression Dyslipidemia Recommendation: Will cleared for discharge if cleared by other consultants on the case including surgery Continue Carafate and Protonix Make sure patient is not taking any anticoagulation therapy We will continue to follow. Time with Patient: Less than 30
--- NOTE | 2022-12-19 14:19 | P.PN ---
Subjective Progress Note Date: 12/19/22 CHIEF COMPLAINT: GI bleed HISTORY OF PRESENT ILLNESS: Patient currently on the cardiac floor. She's had no abdominal pain. No further bleeding. She's worked with physical therapy they're recommending ECF placement. Patient does need to be seen by occupational therapy still. Patient seen by orthopedic service they have cleared her for discharge. Afebrile. WBC 6.7 Hgb 9.6 PHYSICAL EXAM: VITAL SIGNS: Reviewed. GENERAL: Well-developed in no acute distress. HEENT: No sclera icterus. Extraocular movements grossly intact. Moist buccal mucosa. Head is atraumatic, normocephalic. ABDOMEN: Soft. Nondistended. Nontender. NEUROLOGIC: Alert and oriented. Cranial nerves II through XII grossly intact. ASSESSMENT: 1. Acute GI bleed likely due to diverticular bleed 2. History of diverticulosis 3. History of Immanuel-en-Y gastric bypass 4. History of gastric ulcers PLAN: -Continue Regular diet -Continue to monitor for any signs or symptoms of bleeding -No plans for endoscopy at this time -Continue to hold aspirin -Anticipating discharge tomorrow. Social work arranging ECF placement Physician Water Pump Operator note has been reviewed by physician. Signing provider agrees with the documented findings, assessment, and plan of care. Objective - Vital Signs Vital signs: Vital Signs Temp 98.3 F 12/19/22 08:00 Pulse 78 12/19/22 08:00 Resp 16 12/19/22 08:00 BP 151/82 12/19/22 08:00 Pulse Ox 98 12/19/22 08:00 FiO2 Intake & Output 12/18/22 12/19/22 12/19/22 18:59 06:59 18:59 Intake Total 1600 230 10 Output Total 3700 450 500 Balance -2100 -220 -490 Intake: IV 120 110 10 Invasive Line 1 10 10 10 Piperacillin-Tazobactam 3 100 100 .375 gm In Sodium Chloride 0.9% 100 ml @ 25 mls/hr IVPB Q8HR [facility] Rx# :[id number] Sodium Chloride 0.9% 1, 10 000 ml @ 50 mls/hr IV . Q20H [facility] Rx#:[id number] Oral 1480 120 Output: Urine 3700 450 500 Other: Voiding Method External Catheter External Catheter - Labs CBC & Chem 7: 12/18/22 04:59 12/18/22 04:59 Labs: Abnormal Lab Results - Last 24 Hours (Table) 12/19/22 12/19/22 Range/Units 06:22 11:35 POC Glucose (mg/dL) 123 H 153 H (70-110) mg/dL Microbiology - Last 24 Hours (Table) 12/15/22 10:30 Blood Culture - Preliminary Blood 12/15/22 10:15 Blood Culture - Preliminary Blood
[2022-12-19 16:34] LABS: Glucose,Whole Blood 192 mg/dL (70-110)
[2022-12-19] MEDS ORDERED: DEXTROSE 50% SYRINGE 50 ML IVP PRN ×2 (17:07)
[2022-12-19] MEDS: INSULIN ASPART (NovoLOG) 100 UNIT/ML VIAL SQ SCH ×2 (17:49→22:55)
[2022-12-19 20:24] LABS: Glucose,Whole Blood 145 mg/dL (70-110)
[2022-12-20] MEDS: SUCRALFATE 1 GM TAB PO SCH ×2 (00:34→08:56)
[2022-12-20 06:06] LABS: Glucose,Whole Blood 142 mg/dL (70-110)
[2022-12-20] MEDS: INSULIN ASPART (NovoLOG) 100 UNIT/ML VIAL SQ SCH ×2 (06:06→12:50)
[2022-12-20] MEDS: LEVOTHYROXINE 100 MCG TAB PO SCH (06:08)
[2022-12-20] MEDS: HYDROcodone/APAP 5-325MG 1 EACH TAB PO PRN (06:08)
[2022-12-20] MEDS: PANTOPRAZOLE 40 MG TABLET PO SCH (06:08)
[2022-12-20] MEDS: LOSARTAN 50 MG TAB PO SCH (08:56)
[2022-12-20] MEDS: PIPERACILLIN-TAZOBACTAM 3.375 GM in SODIUM CHLORIDE 0.9% 100 ML IVPB SCH (08:56)
[2022-12-20] MEDS: ATORVASTATIN 10 MG TAB PO SCH (08:56)
[2022-12-20] MEDS: polyethylene glycoL 3350 17 GM POWD.PACK PO SCH (08:58)
[2022-12-20] MEDS: LACTULOSE 20 GM/30 ML CUP PO SCH (08:58)
[2022-12-20] MEDS: buPROPion XL 150 MG TAB.ER.24H PO SCH (09:02)
[2022-12-20 09:45] LABS: Anisocytosis Slight; Basophils % (A) 1 %; Eosinophils # (A) 0.2 k/uL (0-0.7); Eosinophils % (A) 3 %; HGB 9.8 gm/dL (11.4-16.0); Hypochromasia Slight; Lymphocytes % (A) 14 %; MCH 29.3 pg (25.0-35.0); MCHC 31.8 g/dL (31.0-37.0); MCV 92.4 fL (80.0-100.0); Mean Platelet Volume 8.3; Monocytes # (A) 0.4 k/uL (0-1.0); Monocytes % (A) 5 %; Neutrophils # (A) 5.6 k/uL (1.3-7.7); Neutrophils % (A) 76 %; Platelet Count 208 k/uL (150-450); RBC 3.35 m/uL (3.80-5.40); WBC 7.3 k/uL (3.8-10.6)
[2022-12-20] MEDS: ACETAMINOPHEN TAB 325 MG TAB PO PRN (09:55)
--- NOTE | 2022-12-20 11:55 | P.PN ---
Subjective We are covering Dr. Renteria are starting 12/19 Very pleasant 67-year-old patient who follows with Dr. Lozada. Chronic stable medical conditions include , GERD, hypertension, hyperlipidemia, hypothyroid, hiatal hernia, gastric stricture with dysphagia with dilatation, unilateral left kidney. gastric bypass about 18 years ago. Had undergone right nephrectomy for congenital defect. December 11: left total knee arthroplasty. By Dr. Yanick Jin. Discharged the following day. Unremarkable stay otherwise. Patient now presents with blood clots via rectum. Epigastric discomfort. Tired rundown. No fever no chills. Patient's had prior diverticular bleed. Patient's family the bedside. Laying in bed. Patient was discharged with aspirin for DVT prophylaxis. Patient had EGD in May of this year at [facility]. Admitted with acute lower GI bleed. Source found. Possible gastric. Cannot rule out diverticular. December 16: Overnight patient dropped hemoglobin to 7.2. We'll to the ICU. 2 units of blood ordered and given by Dr. Teague. Patient's had no further bloody BM since yesterday. Blood pressure is stable. Cozaar is being resumed. IV fluid cutback. Patient on clear liquids and advanced to full liquids. No a bdominal pain. December 17: No further lower GI bleed since admission. Blood pressure stable. No abdominal pain. Remains on clear liquid. Discussed with patient. Follow with surgery. December 18: Up in a chair. No abdominal pain. No bowel movement. Diet advanced to regular per surgery. No endoscopy per surgery at this point. Aspirin continues to be held. 12/19/2022 This is a pleasant 67 years old lady who presents initially because of 3 episodes of bright red blood per rectum on 12/15. Of note on 12/11-12/12 patient underwent left total knee arthroplasty and she was started on aspirin for DVT prophylaxis. She was discharged on aspirin 325 [address] of the abdomen and pelvis showing diverticulitis with liquid stool Aspirin was stopped on admission since with no more GI bleed. Patient denies abdominal pain any other symptoms and she tolerates diet. Also patient on Zosyn started in the emergency room physician but patient with no fever or leukocytosis. Also patient was not on antibiotic at home. Continue with Protonix and Carafate. 12/20/2022 Patient generally doing well, she denies any specific symptoms for me and she thinks she is improving. No more evidence of bleeding per rectum or anywhere else. Her left knee wound is healing as well. She is hemodynamically stable. Repeat hemoglobin today is stable 9.6 up to 9.8. She remains on Protonix and Carafate. Aspirin prescribed for her after her knee surgery is on hold. We will defer the timing of start antiplatelet and aspirin to surgery team however when I talked to the patient she does not want to start on anticoagulation for risk of bleeding. Alternatively risk of thrombosis and explained for the patient extensively including the risk of DVT and pulmonary embolism, I discussed the signs and symptoms of these illnesses with recommendation to call 911 on come to emergency room if she develops signs or symptoms of DVT/PE and she verbalized understanding and acceptance.Currently there is no signs of deep venous thrombosis or pulmonary embolism. Patients with no fever or leukocytosis. Hemoglobin A1c 6.6. Patient told me she is going to follow-up with Dr. Mcgovern her orthopedic surgeon earlier next week and I encouraged her to keep that appointment and she is agreeable Objective - Vital Signs Vital signs: Vital Signs Temp 99.0 F 12/20/22 11:43 Pulse 76 12/20/22 11:43 Resp 16 12/20/22 11:43 BP 151/83 12/20/22 11:43 Pulse Ox 96 12/20/22 11:43 FiO2 Intake & Output 12/19/22 12/20/22 12/20/22 18:59 06:59 18:59 Intake Total 908 10 180 Output Total 1350 700 Balance -442 -690 180 Intake: IV 10 10 Invasive Line 1 10 10 Oral 898 180 Output: Urine 1350 700 Other: Voiding Method External Catheter External Catheter - Exam GENERAL: The patient is alert and oriented x3, not in any acute distress. Well developed, well nourished. HEENT: Pupils are round and equally reacting to light. EOMI. No scleral icterus. No conjunctival pallor. Normocephalic, atraumatic. No pharyngeal erythema. No thyromegaly. CARDIOVASCULAR: S1 and S2 present. No murmurs, rubs, or gallops. PULMONARY: Chest is clear to auscultation, no wheezing , no crackles. ABDOMEN: Soft, nontender, nondistended, normoactive bowel sounds. No palpable organomegaly. MUSCULOSKELETAL: No joint swelling or deformity. -EXTREMITIES: No cyanosis, clubbing, or pedal edema. Scar of the left knee with wound healing NEUROLOGICAL: Gross neurological examination did not reveal any focal deficits. SKIN: No rashes. no petechiae. - Labs CBC & Chem 7: 12/20/22 09:19 12/18/22 04:59 Labs: Abnormal Lab Results - Last 24 Hours (Table) 12/19/22 12/19/22 12/20/22 Range/Units 16:33 20:22 06:04 RBC (3.80-5.40) m/uL Hgb (11.4-16.0) gm/dL Hct (34.0-46.0) % RDW (11.5-15.5) % POC Glucose (mg/dL) 192 H 145 H 142 H (70-110) mg/dL 12/20/22 Range/Units 09:19 RBC 3.35 L (3.80-5.40) m/uL Hgb 9.8 L (11.4-16.0) gm/dL Hct 31.0 L (34.0-46.0) % RDW 17.0 H (11.5-15.5) % POC Glucose (mg/dL) (70-110) mg/dL Assessment and Plan Assessment: -Acute GI bleed suspect , bright red blood per rectum on admission. Resolved now clinically stabilized known to Dr. Dixon from general surgery. PPI. aspirin is already stopped Follow with surgical primary team. We'll defer to surgery team and to start Aspercreme. Patient does not want to start anticoagulation for now -Acute GI blood loss anemia. Hemoglobin prior to surgery was 14.8. When di scharge was 12.4. Decreased to 7.3: Stable 2 units of blood given December 16. hemoglobin 9.6 Start ferrous sulfate -Left total knee arthroplasty. On 12/12/[address] Yanick Jin. Venodyne boots GIORGI stockings Close outpatient follow-up was recommended and patient is agreeable -Immanuel-en-Y gastric bypass surgery about 18 years ago -Hyperlipidemia Lipitor 10 mg a day -Diabetes mellitus type 2 Follow Accu-Cheks ascites). Trulicity. -Hypothyroid Synthroid 200 g a day -Essential hypertension Cozaar -hold for now -Depression/anxiety otherwise specified Wellbutrin XL. -Morbid obesity BMI 44. Prior history of gastric bypass over 18 years ago. Weight loss measures. Thank you for consulting us, we'll follow up
[2022-12-20] MEDS ORDERED: FERROUS SULFATE 325 MG TAB PO SCH (12:00)
[2022-12-20 12:01] LABS: Glucose,Whole Blood 179 mg/dL (70-110)
[2022-12-20 13:17] VITALS: BP 151/83; PULSE 76; TEMP 99
--- NOTE | 2022-12-20 14:06 | P.PN ---
Subjective Progress Note Date: 12/20/22 Principal diagnosis: Acute GI bleeding This is a 67-year-old female patient, who is morbidly obese with previous episodes of GI bleeding and was post gastric bypass surgery was coming into the hospital because of the current and ongoing GI bleed. The patient had at least 8 episodes of maroon colored stool yesterday. No melena. No hematemesis. No abdominal pain. The patient is known to have previous episode of GI bleed. The patient had a bleeding back in May 2020 and this was attributed to diverticular bleed and subsequently in March 2021 and this is attributed to a gastrojejunal ulcer. Following her left knee arthroplasty, the patient was given aspirin and she is coming in for another episode of GI bleed. The patient has a drop in hemoglobin from 16 down to 7.3. She has received a unit of packed RBC and a second unit is to follow. General surgery is on the case. She is hemodynamically stable. CAT scan of the abdomen was done and the patient was fo und to have post gastric bypass changes, small hiatal hernia, colonic diverticulosis more extensive in the sigmoid area and possible hepatic steatosis. The patient is post cholecystectomy. No active bleeding this morning. Granulation profile is within normal limits. Platelet count is above 100 K. No chest pain. No shortness of breath. She is alert and awake. On today's evaluation of 12/17/2022, the patient is not showing any signs of bleeding, the patient is hemodynamically stable. The patient has remained nothing by mouth overnight. The patient is currently off aspirin. The patient got transfused with a total of 2 units of packed RBC since admission and the hemoglobin today's of 8.60 stable compared to yesterday. No nausea. No vomiting. No emesis. Potassium levels at 3.5, replaced, BUN is at 8 with a creatinine of 0.8 and sodium level is at 138. The white cell count at 6.7. Reevaluated today on 12/18/2022, patient remains in the ICU, she received so far 2 units of packed RBCs since admission and hemoglobin today is 9.6. Patient was supposed to have EGD today, but this was later canceled by general surgery on the case. Patient has no active signs of bleeding at this point. She is hemodynamically stable. She had a recent left total knee arthroplasty on 12/11. And she had previous episodes of bleeding in the past. At one point her bleeding was gastrojejunal in nature and at one point is was diverticular in nature. At any rate presently the patient is hemodynamically stable, doing well, and I plan to transfer the patient out of the ICU to a regular medical floor. WBC count today 6.7 hemoglobin is 9.6 electrodes are normal renal profile is normal Patient was reevaluated today on 12/19/2022, she is now on the medical floor, doing well, relatively asymptomatic,, no symptoms of GI bleeding. Patient is hemodynamically stable. And I believe no plans for EGD or colonoscopy since the patient is having no active bleeding patient is being considered for discharge planning. Patient was reevaluated today on 12/20/2022, doing well, relatively asymptomatic, no further episodes of GI bleeding, awaiting mostly placement. Objective - Vital Signs Vital signs: Vital Signs Temp 99.0 F 12/20/22 11:43 Pulse 76 12/20/22 11:43 Resp 16 12/20/22 11:43 BP 151/83 12/20/22 11:43 Pulse Ox 96 12/20/22 11:43 FiO2 Intake & Output 12/19/22 12/20/22 12/20/22 18:59 06:59 18:59 Intake Total 908 10 180 Output Total 1350 700 Balance -442 -690 180 Intake: IV 10 10 Invasive Line 1 10 10 Oral 898 180 Output: Urine 1350 700 Other: Voiding Method External Catheter External Catheter - Exam Physical Exam: Revealed 67-year-old female in no distress, on room air. Head: Atraumatic, normocephalic. HEENT:[Neck is supple.] [No neck masses.] [No thyromegaly.] [No JVD.] Chest: [Clear throughout, no crackles, no rhonchi, no wheezes.] Cardiac Exam: [Normal S1 and S2, no S3 gallop, no murmur.] Abdomen: [Soft, nontender, no megaly, no rebound, no guarding, normal bowel sounds.] Extremities: Incision over the left knee is clean , being addressed by orthopedic surgery Neurological Exam: [No focal neurologic deficit.] Alert oriented 3 Psychiatric: Normal mood affect and normal mental status examination. Skin: No rashes, ecchymosis in the left lower extremity remains - Labs CBC & Chem 7: 12/20/22 09:19 12/18/22 04:59 Labs: Abnormal Lab Results - Last 24 Hours (Table) 12/19/22 12/19/22 12/20/22 Range/Units 16:33 20:22 06:04 RBC (3.80-5.40) m/uL Hgb (11.4-16.0) gm/dL Hct (34.0-46.0) % RDW (11.5-15.5) % POC Glucose (mg/dL) 192 H 145 H 142 H (70-110) mg/dL 12/20/22 12/20/22 Range/Units 09:19 12:00 RBC 3.35 L (3.80-5.40) m/uL Hgb 9.8 L (11.4-16.0) gm/dL Hct 31.0 L (34.0-46.0) % RDW 17.0 H (11.5-15.5) % POC Glucose (mg/dL) 179 H (70-110) mg/dL Assessment and Plan Assessment: Impression: Acute GI bleeding, presently stable patient did require 2 units of packed RBCs since admission hemoglobin remained stable all along. Acute blood loss anemia Recurrent history of GI bleeding in June 01 and in March 03 History of incarcerated ventral hernia status post repair in August 01 History of recent left total knee arthroplasty History of gastric bypass surgery Benign essential hypertension History of thyroid cancer Congenital single kidney History of depression Dyslipidemia Recommendation: cleared for discharge Awaiting placement. Continue Carafate and Protonix Make sure patient is not taking any anticoagulation therapy We will continue to follow. Time with Patient: Less than 30
--- NOTE | 2022-12-20 14:48 | P.DS ---
Providers Date of admission: 12/16/22 03:00 Expected date of discharge: 12/20/22 Attending physician: Qian Murray Consults: 12/18/22 03:55 Consult Physician Urgent Consulting Provider: Qian Murray Consult Reason/Comments: GIB Do you want consulting provider notified?: Already Contacted 12/18/22 04:00 Consult Physician Routine Consulting Provider: Dinora De La O Consult Reason/Comments: ICU Care/Decreased Hgb Do you want consulting provider notified?: Already Contacted 12/18/22 14:27 Consult Physician Routine Consulting Provider: Yanick Jin Consult Reason/Comments: total knee 12/11 Do you want consulting provider notified?: Already Contacted 12/19/22 14:39 Consult Physician Routine Consulting Provider: Conor Renteria Consult Reason/Comments: medical management Do you want consulting provider notified?: Already Contacted Primary care physician: Pal Lozada Hospital Course: Discharge Diagnosis 1. Acute GI bleed likely due to diverticular bleed 2. History of diverticulosis 3. History of Immanuel-en-Y gastric bypass 4. History of gastric ulcers Hospital Course This is a 67-year-old female who presented to the ER due to GI bleed. Patient presented with bright red blood per rectum. Patient does have a known history of diverticulitis and diverticular bleed. Computed tomography scan abdomen and pelvis had shown colonic diverticulosis. Patient has history of a sigmoid colectomy and lower anterior resection for sigmoid diverticulitis with recurrent GI bleed in May 2020. Patient does have a history of Immanuel-en-Y gastric b ypass. Last colonoscopy was in March 2021 with evidence of severe sigmoid diverticulosis and hemorrhoids. At that time she did have an EGD which had shown gastrojejunal ulcers with recent bleeding. Hemoglobin on admission 12 down to 8.9. She did have some hypotension. She's received fluid boluses with improvement with PPI. Patient had recent knee surgery on 12/11/2022 and had been taking aspirin 325mg bid. Patient did require to be in the ICU. She did receive 2 units of blood during this admission. She has had no further bleeding and HGB at discharge is at 9.8 and stable. She is tolerating diet. No abdominal pain. She is stable for discharge. Aspirin discontinued during this admission. Physician Electrical/Instrument Technician note has been reviewed by physician. Signing provider agrees with the documented findings, assessment, and plan of care. Patient Condition at Discharge: Stable Plan - Discharge Summary New Discharge Prescriptions: New HYDROcodone/APAP 5-325MG [[place] 5-325] 1 each PO Q6HR PRN #4 tab PRN Reason: Pain Ferrous Sulfate [Iron (65 MG Elemental)] 325 mg PO BID-W/MEALS tab Pantoprazole [Protonix] 40 mg PO AC-BID tab Continue buPROPion XL [Wellbutrin XL] 300 mg PO DAILY Levothyroxine Sodium [Synthroid] 200 mcg PO DAILY Atorvastatin [Lipitor] 10 mg PO DAILY Cetirizine HCl [Zyrtec] 10 mg PO DAILY PRN PRN Reason: Allergy Symptoms Sucralfate [Carafate] 1 gm PO BID polyethylene glycoL 3350 [Miralax] 17 gm PO DAILY Dulaglutide [Trulicity] 0.75 mg SQ MO Sennosides [Senokot] 2 tab PO DAILY PRN #60 tablet PRN Reason: Constipation Losartan [Cozaar] 50 mg PO DAILY Discontinued Aspirin 325 mg PO BID #60 tab HYDROcodone/APAP 7.5-325MG [Ash[place] 7.5-325] 1 - 2 tab PO Q6H PRN #32 tab PRN Reason: Pain hydroCHLOROthiazide 12.5 mg PO DAILY Discharge Medication List buPROPion XL [Wellbutrin XL] 300 mg PO DAILY 07/29/18 [History] Levothyroxine Sodium [Synthroid] 200 mcg PO DAILY 04/28/20 [History] Atorvastatin [Lipitor] 10 mg PO DAILY 03/09/21 [History] Cetirizine HCl [Zyrtec] 10 mg PO DAILY PRN 12/07/22 [History] Dulaglutide [Trulicity] 0.75 mg SQ MO 12/07/22 [History] Sucralfate [Carafate] 1 gm PO BID 12/07/22 [History] polyethylene glycoL 3350 [Miralax] 17 gm PO DAILY 12/07/22 [History] Sennosides [Senokot] 2 tab PO DAILY PRN #60 tablet 12/11/22 [Rx] Losartan [Cozaar] 50 mg PO DAILY 12/15/22 [History] Ferrous Sulfate [Iron (65 MG Elemental)] 325 mg PO BID-W/MEALS tab 12/20/22 [Rx] HYDROcodone/APAP 5-325MG [[place] 5-325] 1 each PO Q6HR PRN #4 tab 12/20/22 [Rx] Pantoprazole [Protonix] 40 mg PO AC-BID tab 12/20/22 [Rx] Follow up Appointment(s)/Referral(s): Qian Murray MD [STAFF PHYSICIAN] - 01/09/23 Pal Lozada MD [Primary Care Provider] - 1-2 days Yanick Jin DO [Doctor of Osteopathic Medicine] - 1 Week (Patient may follow-up with Dr. Yanick Jin at [facility] as scheduled in approximately one week following discharge. ) Patient Instructions/Handouts: Pulmonary Embolism (GEN), Deep Vein Thrombosis (GEN) Activity/Diet/Wound Care/Special Instructions: 1. Patient to remain weight-bear as tolerated on the left lower extremity with the assistance of a walker 2. Patient is encouraged to elevate the left lower extremity for comfort support as needed 3. Patient may apply ice over the surgical site of the left knee for comfort support as needed 4. Keep Optifoam dressing intact over the left knee 3 days 5. Patient may shower with Optifoam dressing intact 6. Patient may shower without dressing intact over the surgical site if surgical incision site remains dry after Optifoam dressing has been discontinued 7. Take medications as prescribed 8. Use CPM 5-6 hours daily - start at 45 degrees and increase by 5 degrees each use as tolerate, max of 15 degrees increase over 24 hours. If he develop signs symptoms of deep venous thrombosis of the thorax extremity like worsening pain and swelling redness of the legs. Or sinus and symptoms of blood clots/embolism like chest pain, shortness of breath, coughing up of blood, dizziness, passing out or any other symptoms please call 911 on come to emergency room Continue Regular diet Discharge Disposition: TRANSFER TO SNF/ECF
== END 2022-12-20 15:50 | DRG 378 ==
LOC: EC 06:51 → 6NMEDSUR 10:02 → OBSVTOIN 12-16 03:00 → 2SICU 12-16 03:03 → 3SCARD 12-18 22:21
PROVIDERS: ADMIT Surgery Plastic and Reconstructive Surgery; ATTEND Surgery Plastic and Reconstructive Surgery
PROC: 30233N1 Transfusion of Nonautologous Red Blood Cells into Peripheral Vein, Percutaneous Approach (ICD-10-PCS; principal; 2022-12-16)
DX: K57.33 Diverticulitis of large intestine without perforation or abscess with bleeding (principal); D62 Acute posthemorrhagic anemia; Z68.41 Body mass index [BMI] 40.0-44.9, adult; K43.6 Other and unspecified ventral hernia with obstruction, without gangrene; Q60.0 Renal agenesis, unilateral; R18.8 Other ascites; K22.6 Gastro-esophageal laceration-hemorrhage syndrome; E11.9 Type 2 diabetes mellitus without complications; Z79.84 Long term (current) use of oral hypoglycemic drugs; K44.9 Diaphragmatic hernia without obstruction or gangrene; R13.10 Dysphagia, unspecified; Z98.84 Bariatric surgery status; Z87.11 Personal history of peptic ulcer disease; Z87.891 Personal history of nicotine dependence; E66.01 Morbid (severe) obesity due to excess calories; F32.A Depression, unspecified; F41.9 Anxiety disorder, unspecified; I10 Essential (primary) hypertension; Z96.652 Presence of left artificial knee joint; K27.9 Peptic ulcer, site unspecified, unspecified as acute or chronic, without hemorrhage or perforation; E03.9 Hypothyroidism, unspecified; E78.5 Hyperlipidemia, unspecified; Z79.890 Hormone replacement therapy; Z87.19 Personal history of other diseases of the digestive system; K59.00 Constipation, unspecified; Z79.82 Long term (current) use of aspirin; Z79.899 Other long term (current) drug therapy; Z85.850 Personal history of malignant neoplasm of thyroid; Z90.5 Acquired absence of kidney; Z88.8 Allergy status to other drugs, medicaments and biological substances; I95.9 Hypotension, unspecified
CPT/HCPCS: 36415; 74177; 80048; 80053; 83036; 83605; 84132; 84484; 85025; 85027; 85610; 85730; 86850; 86900; 86901; 86920; 87040; 93005; 96361; 96374; 96375; 99285

== ENCOUNTER 2023-08-01 07:04 | Day surgery (SDC) | payer MEDICARE ==
[~2023-08-01 07:04] MED LIST changes: -ACETAMINOPHEN TAB 500 MG TAB PO PRN; +ALPRAZolam 0.25 MG TAB PO PRN; +ALPRAZolam 0.5 MG TAB PO PRN; -GABAPENTIN 300 MG CAP PO PRN; -MELOXICAM 7.5 MG TAB PO PRN; +NITROGLYCERIN SL TABS 0.4 MG TAB SUBLINGUAL PRN; -TRANEXAMIC 1,000 MG/100ML-NACL 1,000 MG in SALINE 1 100ML.BAG IVPB PRN
[2023-08-01] MEDS: SODIUM CHLORIDE 0.9% 1,000 ML in EMPTY BAG 1 BAG IV SCH (07:25)
[2023-08-01 07:31] LABS: Glucose,Whole Blood 117 mg/dL (70-110)
[2023-08-01 07:36] LABS: Basophils # (A) 0.1 k/uL (0-0.2); Basophils % (A) 1 %; Eosinophils # (A) 0.4 k/uL (0-0.7); Eosinophils % (A) 5 %; HGB 13.4 gm/dL (11.4-16.0); Lymphocytes # (A) 1.7 k/uL (1.0-4.8); Lymphocytes % (A) 22 %; MCH 26.1 pg (25.0-35.0); MCHC 31.2 g/dL (31.0-37.0); MCV 83.6 fL (80.0-100.0); Mean Platelet Volume 9.2; Monocytes # (A) 0.5 k/uL (0-1.0); Monocytes % (A) 6 %; Neutrophils % (A) 64 %; Platelet Count 201 k/uL (150-450); RBC 5.15 m/uL (3.80-5.40); RDW 15.8 % (11.5-15.5); WBC 7.8 k/uL (3.8-10.6)
[2023-08-01] MEDS: ASPIRIN 325 MG TAB PO STA (07:36)
[2023-08-01 07:55] LABS: African American GFR (CKD) 59 (>60 ml/min/1.73 sqM); Anion Gap 9 mmol/L; Blood Urea Nitrogen 33 mg/dL (7-17); Calcium 8.8 mg/dL (8.4-10.2); Carbon Dioxide 24 mmol/L (22-30); Chloride 108 mmol/L (98-107); Glucose 112 mg/dL (74-99); Non-African American GFR(CKD) 51 (>60 ml/min/1.73 sqM); Sodium 141 mmol/L (137-145)
[2023-08-01 08:08] VITALS: RESP 18; TEMP 98.8
[2023-08-01] MEDS ORDERED: LIDOCAINE 1% INJ 10MG/ML (20 ML MDV) ONE (08:33)
[2023-08-01] MEDS ORDERED: VERAPAMIL 2.5 MG/ML 2 ML AMP ONE (08:33)
[2023-08-01] MEDS ORDERED: fentaNYL (PF) 50 MCG/ML 2 ML AMP ONE (08:35)
[2023-08-01] MEDS: LIDOCAINE 2% (PF) 20 MG/ML 5 ML VIAL SQ ONE (09:13)
[2023-08-01] MEDS: fentaNYL (PF) 50 MCG/1 ML VIAL IVP ONE (09:13)
[2023-08-01] MEDS: HEPARIN SODIUM 1,000 UN/ML (10ML VL) IVP ONE (09:20)
[2023-08-01] MEDS: IOPAMIDOL-370 100ML BTL INTRATHECA ONE (09:25)
[2023-08-01] MEDS ORDERED: RX INFO: IV CONTRAST WAS GIVEN 1 EACH MISC MISCELLANE PRN (09:37)
[2023-08-01] MEDS ORDERED: SODIUM CHLORIDE 0.9% 1,000 ML IV SCH (09:45)
--- NOTE | 2023-08-01 09:45 | P.CARDCATH ---
Date of Procedure: 08/01/23 Description of Procedure: Cardiac Catheterization: The patient is a 68-year-old female with known history of hypertension, hyperlipidemia and diabetes who has been complaining of chest discomfort and had an abnormal stress echocardiogram recommendations were made regarding cardiac catheterization, the risks and the complications were discussed with the patient who is in full understanding and agreement. Procedure Description: Patient was brought to lab support tech in fasting semi-sedated state after receiving Fentanyl and Benadryl achieiving moderate conscious sedated state. Using Xylocaine Anesthesia and modified Seldinger technique, a 6-Croatian sheath was introduced in the right radial artery . Subsequently, selective coronary angiography was performed using a 5-Croatian 3.5 bend Epifanio catheter. Multiple views of the coronary artery including hemiaxial views were obtained. The right Epifanio catheter was used to cross the aortic valve and LVEDP was calculated. Following that, catheter and sheath were removed. Hemostasis was obtained with deployment of vascular band . There was no immediate complication. Patient was returned to room in stable condition. Of note, the patient received a total of 5000 units of intravenous heparin as well as intra-arterial verapamil. Findings: Fluoroscopy: Severe calcifications of the coronary arteries was noted Left main: This is a large size vessel, bifurcating into LAD and left circumflex, left main has no obstructive disease LAD: This is a large size vessel reaching to the apex with a wraparound apex segment giving rise to a large diagonal branch. The proximal LAD has an eccentric 20 to 30% plaque with no high-grade stenosis, the rest of the vessel has no evidence of significant obstructive disease Left circumflex: This is a nondominant vessel, large in caliber giving rise to 3 obtuse marginal branch the third 1 is the largest. The proximal left circumflexthird obtuse marginal branch have intimal disease of 20 to 30%. RCA: This is a large dominant vessel, bifurcating distally to PDA and PLV, the mid RCA has intimal disease of 10 to 20%. The takeoff of the right PDA has a 40% to 50% stenosis with no evidence of significant stenosis in other areas. Left Ventriculogram: Not performed Hemodynamics: There was no gradient across the aortic valve, LVEDP was 16-18 mmHg Conclusion: 1. Calcified coronary arteries 2. Mild triple-vessel disease 3. Right dominance Recommendations: I have recommended to continue medical therapy with aggressive coronary risks modifications. The findings and the recommendations were discussed with the patient and the family and they were in full understanding and agreement. Duration of sedation is 13 minutes.
[2023-08-01] MEDS: SODIUM CHLORIDE 0.9% 500 ML 500 ML IV ONE (12:00)
[2023-08-01 14:18] VITALS: BP 157/76; PULSE 64
[2023-08-01] MEDS ORDERED: SUCRALFATE 1 GM TAB PO SCH (17:30)
[2023-08-02] MEDS ORDERED: LEVOTHYROXINE 100 MCG TAB PO SCH (06:30)
[2023-08-02] MEDS ORDERED: ATORVASTATIN 40 MG TAB PO SCH (09:00)
[2023-08-02] MEDS ORDERED: buPROPion XL 300 MG TAB.ER.24H PO SCH (09:00)
[2023-08-02] MEDS ORDERED: amLODIPine 5 MG TAB PO SCH (09:00)
[2023-08-02] MEDS ORDERED: LOSARTAN 50 MG TAB PO SCH (09:00)
[2023-08-06] MEDS ORDERED: NON FORMULARY DRUG (Dulaglutide [Trulicity] 0.75 MG/0.5 ML Each) SQ SCH (09:38)
== END 2023-08-01 12:45 | disposition home or self-care (01) ==
LOC: CATHCVL 07:04
PROVIDERS: ATTEND Internal Medicine Interventional Cardiology
DX: I25.10 Atherosclerotic heart disease of native coronary artery without angina pectoris (principal); I10 Essential (primary) hypertension; E11.9 Type 2 diabetes mellitus without complications; E78.2 Mixed hyperlipidemia; Z82.49 Family history of ischemic heart disease and other diseases of the circulatory system; Z79.899 Other long term (current) drug therapy; Z98.890 Other specified postprocedural states
CPT/HCPCS: 93458; 80048; 85025; C1769; C1894; J1644; Q9967; J2001; J3010

== ENCOUNTER → 2023-09-14 | Outpatient (CLI) | payer MEDICARE ==
[2023-09-14 11:21] LABS: INR 0.9 (<1.2); Partial Thromboplastin Time 23.9 sec (22.0-30.0); Prothrombin Time 9.8 sec (10.0-12.5)
[2023-09-14 16:56] LABS: ALT 16 U/L (8-44); AST 18 U/L (13-35); Albumin 4.1 g/dL (3.8-4.9); Albumin/Globulin Ratio 1.52 Ratio (1.60-3.17); Alkaline Phosphatase 119 U/L (41-126); BUN/Creat Ratio 27.18 Ratio (12.00-20.00); Blood Urea Nitrogen 29.9 mg/dL (9.0-27.0); Calcium 8.8 mg/dL (8.7-10.3); Carbon Dioxide 22.5 mmol/L (21.6-31.8); Chloride 107 mmol/L (96-109); Globulin 2.7 g/dL (1.6-3.3); Glucose 106 mg/dL (70-110); Potassium 4.3 mmol/L (3.5-5.5); Sodium 142 mmol/L (135-145); Total Bilirubin 0.4 mg/dL (0.3-1.2); Total Protein 6.8 g/dL (6.2-8.2)
[2023-09-14 17:06] LABS: HCT 42.1 % (37.2-46.3); HGB 12.6 g/dL (12.0-15.0); MCH 25.4 pg (27.0-32.0); MCHC 29.9 g/dL (32.0-37.0); MCV 84.7 FL (80.0-97.0); Mean Platelet Volume 12.2 FL (9.5-12.2); NRBC Per 100 WBC 0 X 10*3/uL (0.00-0.01); Platelet Count 184 X 10*3/uL (140-440); RBC 4.97 X 10*6/uL (4.10-5.20); RDW 16.6 % (11.5-14.5); WBC 7.85 X 10*3/uL (4.50-10.00)
== END | disposition home or self-care (01) ==
LOC: LABPAT 10:23
PROVIDERS: ATTEND Orthopaedic Surgery
DX: Z01.812 Encounter for preprocedural laboratory examination (principal); M16.11 Unilateral primary osteoarthritis, right hip; Z22.322 Carrier or suspected carrier of Methicillin resistant Staphylococcus aureus
CPT/HCPCS: 36415; 80053; 85027; 85610; 85730; 86850; 86900; 86901; 87070

== ENCOUNTER 2023-09-25 09:36 | Day surgery (SDC) | payer MEDICARE ==
[~2023-09-25 09:36] MED LIST changes: -ALPRAZolam 0.25 MG TAB PO PRN; -ALPRAZolam 0.5 MG TAB PO PRN; -NITROGLYCERIN SL TABS 0.4 MG TAB SUBLINGUAL PRN; +TRANEXAMIC 1,000 MG/100ML-NACL 1,000 MG in SALINE 1 100ML.BAG IVPB PRN
[2023-09-25] MEDS ORDERED: HYDROmorphone 0.5 MG/0.5 ML SYRINGE IVP PRN ×4 (09:50→10:59)
[2023-09-25] MEDS ORDERED: MIDAZOLAM 2 MG/2 ML VIAL IV PRN (09:50)
[2023-09-25] MEDS ORDERED: LIDOCAINE 1% (10MG/ML) FOR IV START INTRADERMA PRN (09:50)
[2023-09-25] MEDS: MELOXICAM 7.5 MG TAB PO PRN (10:25)
[2023-09-25] MEDS: ACETAMINOPHEN TAB 500 MG TAB PO PRN (10:25)
[2023-09-25] MEDS: GABAPENTIN 300 MG CAP PO PRN (10:25)
[2023-09-25] MEDS: IV FLUID CONTINUATION 1,000 ML IV ONE (10:30)
[2023-09-25 10:36] LABS: Glucose,Whole Blood 121 mg/dL (70-110)
[2023-09-25] MEDS: ONDANSETRON 4 MG/2 ML VIAL IVP ONE (10:38)
[2023-09-25] MEDS: LACTATED RINGERS 1,000 ML IV SCH (10:38)
[2023-09-25] MEDS ORDERED: NALOXONE 0.4 MG/ML 1 ML VIAL IV PRN (10:59)
[2023-09-25] MEDS ORDERED: ONDANSETRON 4 MG/2 ML VIAL IVP PRN (10:59)
[2023-09-25] MEDS ORDERED: MAGNESIUM HYDROXIDE 2,400 MG/30 ML CUP PO PRN (10:59)
--- NOTE | 2023-09-25 11:07 | P.ANPRN ---
Procedure Note - Anesthesia - Nerve Block Performed Right Hogan Single Time Out Performed: Yes Date of Procedure: 09/25/23 Procedure Start Time: 10:50 (Procedure the surgery clinic today usually cleared by couple of days 1 you could see the bruise okay let me give me your numbers (look at your records and then I will call you back once can you give me your full name first and last and you just second and you hello you are okay or youYou are okay doing an okay BS number 1L okay Jimmie be a TZ what blood comes after okay and he said this 625 days ago correct okay who did the surgery okay I will look it up and give me your phone number please look at [phone] and now your symptoms like you are having like a bruise on the tonsils do have been okay but you it hurt when you swallow you have no issues with bleeding no bleeding did not take any blood thinner at home okay I will call you back in few 20) Procedure Stop Time: 10:58 Location of Patient: PreOp Indication: Acute Post-Operative Pain, Requested by Surgeon Sedation Type: Sedate with meaningful contact maintained Preparation: Sterile Prep Position: Supine Needle Types: Pajunk Needle Gauge: 21 Ultrasound used to visualize needle placement: Yes Ultrasound used to observe medication spread: Yes Injectate: 0.5% Ropivacaine (see comment for volume) (15 ml + 15 ml Lidocaine 1 % with epi 1/200 k) Blood Aspirated: No Pain Paresthesia on Injection Noted: No Resistance on Injection: Normal Image Stored and Saved: Yes Events: Uneventful and Well Tolerated
[2023-09-25] MEDS ORDERED: PHENYLEPHRINE-0.9% NACL SYG 1,000 MCG/10 ML SYRINGE ONE (11:18)
[2023-09-25] MEDS ORDERED: MIDAZOLAM 2 MG/2 ML VIAL ONE (11:18)
[2023-09-25] MEDS ORDERED: ROPIVACAINE 5 MG/ML 30 ML VIAL ONE (11:18)
[2023-09-25] MEDS ORDERED: LIDOCAINE 1%-EPI 1:100,000 20 ML VIAL ONE (11:18)
[2023-09-25] MEDS ORDERED: fentaNYL (PF) 50 MCG/ML 2 ML AMP ONE (11:18)
[2023-09-25] MEDS ORDERED: ePHEDrine 50 MG/ML 1 ML VIAL ONE (11:18)
[2023-09-25] MEDS ORDERED: TRANEXAMIC 1,000 MG/100ML-NACL PREMIX BAG ONE (11:18)
[2023-09-25] MEDS ORDERED: VASOPRESSIN 20 UNIT/ML 1 ML VIAL ONE (11:18)
[2023-09-25] MEDS ORDERED: PROPOFOL 10 MG/ML 20 ML VIAL IV ONE (11:18)
[2023-09-25] MEDS: ceFAZolin 1,000 MG in SODIUM CHLORIDE 0.9% 1,000 ML IRRIGATION ONE (11:22)
[2023-09-25] MEDS: ROPIVACAINE 5 MG/ML 30 ML VIAL MISCELLANE ONE ×2 (11:49→12:44)
--- NOTE | 2023-09-25 12:53 | P.OP ---
Date of Procedure: 09/25/23 Preoperative Diagnosis: Severe osteoarthritis right hip Postoperative Diagnosis: Severe osteoarthritis right hip Procedure(s) Performed: Right total hip arthroplasty with a direct anterior approach Implants: [employer]hew Polarstem standard size 1 with a collar [employer]hew R3, 3 hole hemispherical acetabular shell, 50 mm [employer]hew Reflection 6.5 mm cancellus screw, 20 mm 2 [employer] R3, XLPE 20 acetabular liner [employer]hew Oxinium femoral head 36 mm, +0 All components were press-fit. The articulation is Oxinium on polyethylene. Anesthesia: spinal Surgeon: Yanick Jin Fuel Management Handler #1: Judith Mcginnis Estimated Blood Loss (ml): 350 Pathology: none sent Condition: stable Disposition: PACU Indications for Procedure: After failure of conservative treatment we discussed the surgical and nonsu rgical treatment options at length. Patient wishes to proceed with a total hip arthroplasty with a direct anterior approach. Complications specific to this procedure were discussed at length, including but not limited to infection, leg length discrepancy, dislocation, nerve injury, and fracture. Covid-19 was also discussed at length with the patient, and they are aware of the current policies and procedures. The patient was given the option of delaying surgery, but they elect to proceed knowing these risks. Patient is aware of all these complications and informed consent was obtained Operative Findings: The operative findings are consistent with severe osteoarthritis of the right hip Description of Procedure: The patient was seen and evaluated in the preoperative area and the consent was reviewed. The operative site was marked with a skin marker. The patient verified the procedure and operative site. A JOSE block was placed by anesthesia in the preoperative area. The patient was then brought to the operating room and given preoperative antibiotics intravenously. 1 g of Tranexamic acid was also given intravenously. A spinal anesthetic was administered by the anesthesia department. The patient was then placed on the Griswold table with the bony prominences well-padded. The hip area was then prepped with a ChloraPrep solution and draped in the usual sterile fashion. A universal timeout was then performed, which confirmed the patient's name, surgical site, ALLERGIES, and procedure being performed on the consent. Next the incision site was located at 1 cm distal and 4 cm lateral to the anterior superior iliac spine. The skin and subcutaneous tissues were sharply incised. Incision was carefully dissected down to the fascia overlying the tensor fascia srinivasan muscle. This fascia was then incised in line with the muscle fibers. Care was taken to stay laterally in order to avoid injuring the lateral femoral cutaneous nerve. Next, using blunt finger dissection, the tensor fascia srinivasan muscle was dissected off its investing fascia. The muscle was then carefully retracted laterally with a cobra retractor over the lateral neck of the femur. Next, the circumflex vessels were identified and cauterized using the Aquamantis device. The anterior hip capsule was then exposed. The capsule was then opened and an inverted T fashion. The retractors were then placed intracapsularly. The retractors were maintained intracapsular throughout the procedure. The proximal femur was then visualized. Fluoroscopic x-rays were then taken in order to evaluate the preoperative leg lengths. A small amount of traction was placed on the leg. The femoral neck was then osteotomized at the appropriate level above the lesser trochanter. A small wedge of bone was then removed from the remaining femoral head. Next, using a corkscrew the femoral head was removed from the acetabulum. On gross visual inspection, the femoral head had complete loss of articular cartilage and multiple periarticular osteophytes. The femoral head was then measured. Attention was then turned to the acetabulum. The acetabulum was exposed and any remaining labrum was excised. Sequential reaming of the acetabulum was performed using fluoroscopic guidance until there was a good bed of bleeding cancellus bone. When the appropriate size was reached, a trial was then placed. The position and fit of the trial was checked with fluoroscopy. The trial was then removed. Then, using fluoroscopic guidance, the final implant was impacted at 20 of anteversion and 40 of abduction, and fully seated in the acetabulum. 2 screws were then placed in the acetabulum. Again fluoroscopy was used to check position of the screws. Next, the liner was then impacted, with a 20 elevated liner located in the anterior superior quadrant. Component locking was confirmed. Attention was then directed to the femur. With the aid of the Griswold table, the femur was externally rotated to approximately 130, extended, and adducted under the opposite leg. A side hook was then placed under the proximal femur, and the side hook elevator was used to elevate the proximal femur while releasing the capsule. Retractors were then placed. A capsular release was performed, as well as a release of the conjoined tendon, which afforded excellent v isualization of the proximal femur. Next, a box osteotome was used to lateralize the proximal femur. A floral merchandiser was then used to locate the femoral canal. Sequential broaching was then performed with appropriate size which afforded excellent fixation in the proximal femur. A trial was then placed with appropriate head and neck, and the hip was gently reduced with the aid of the Griswold table. Fluoroscopy was then used to check position of the components, as well as to evaluate the leg lengths and offset. The leg lengths and offset were measured as closely as possible to ensure stability of the hip. The hip was then gently dislocated and the trials were then removed. Final implants were then impacted and the hip was again reduced. Final fluoroscopic x-rays confirmed that the components were in anatomic position. The leg lengths and offset were measured and were found to coincide with the trial measurements. The hip was also taken through range of motion, and found to be stable. The hip was then copiously irrigated with antibiotic solution with pulsatile lavage. The hip was then irrigated with Irrisept solution. The soft tissues were then injected with a ropivacaine solution. A second dose of 1 g of Tranexamic acid was also given intravenously. The fascia was then closed with 2-0 strata fix suture. The subcutaneous tissue was closed with 3-0 Vicryl. The subcuticular tissue was closed with 3-0 strata fix suture. The skin was then closed with Exofin skin glue. After the glue and dried, and Optifoam silver impregnated dressing was applied. The patient was t hen transferred to the recovery room in stable condition. The assistant professor of philosophy YAMILET Gonzalez was required due to the complexity of surgery, and the need for skilled surgical orderly for positioning, draping, exposure, retraction, and closure of the wound.
[2023-09-25] MEDS: LACTATED RINGERS 1,000 ML IV ONE (12:56)
--- NOTE | 2023-09-25 13:16 | FL ---
EXAMINATION TYPE: FL guidance operating room, XR Hip Limited RT Intraoperative/procedural fluoroscopi c services were provided. Total fluoroscopy time is 5520 seconds with a total of 3 submitted images t o PACS. Please see the operative/procedural note for further details. DAP: 5.3421 Gycm2
--- NOTE | 2023-09-25 14:15 | XR ---
EXAMINATION TYPE: XR Hip Limited RT DATE OF EXAM: 09/25/2023 CLINICAL HISTORY: Postoperative evaluation TECHNIQUE: Single portable view of the right hip was submitted. FINDINGS: Noted are changes of total hip arthroplasty with femoral and acetabular components appearin g well seated. Alignment is anatomic. Postsurgical soft tissue changes are evident. IMPRESSION: Satisfactory postoperative alignment
[2023-09-25] MEDS: SODIUM CHLORIDE 0.9% 1,000 ML IV SCH (14:50)
[2023-09-25 15:05] LABS: Glucose,Whole Blood 138 mg/dL (70-110)
[2023-09-25] MEDS ORDERED: LORATADINE 10 MG TAB PO PRN (16:42)
[2023-09-25] MEDS ORDERED: OXYBUTYNIN XL 5 MG TAB.ER.24 PO PRN (16:42)
[2023-09-25 16:56] LABS: Glucose,Whole Blood 113 mg/dL (70-110)
[2023-09-25] MEDS: HYDROcodone/APAP 7.5-325MG 1 EACH TAB PO PRN (17:15)
[2023-09-25] MEDS ORDERED: DEXTROSE 50% SYRINGE 50 ML IVP PRN ×2 (17:26)
--- NOTE | 2023-09-25 17:29 | P.CONS ---
History of Present Illness - Reason for Consult Consult date: 09/25/23 Medical management Requesting physician: Yanick Jin - Chief Complaint Right hip surgery - History of Present Illness Very pleasant 68-year-old patient who follows with Dr. Stephy Harris. Chronic stable medical conditions include , GERD, hypertension, hyperlipidemia, hypothyroid, hiatal hernia, gastric stricture with dysphagia with dilatation, unilateral left kidney. gastric bypass about 18 years ago. right nephrectomy for congenital defect. Diverticular bleeds Patient now has undergone right total hip arthroplasty. Pain controlled. No nausea vomiting. Did tolerate his supper. No cardiac symptoms. Resting in bed. Review of systems: GEN.: None EYES: None HEENT: None NECK: None RESPIRATORY: None CARDIOVASCULAR: None GASTROINTESTINAL: None e GENITOURINARY: None MUSCULOSKELETAL: Joint pains LYMPHATICS: None HEMATOLOGICAL: None PSYCHIATRY: None NEUROLOGICAL: None Social history: No smoking or alcohol. . Physical examination: VITAL SIGNS: 97.6, 70, 18, 112/69, 100% room air GENERAL: BMI 45.4, reclining bed awake comfortable EYES: Pupils equal. Conjunctiva pale HEENT: External appearance of nose and ears normal, oral cavity grossly normal. NECK: JVD not raised; masses not palpable. HEART: First and second heart sounds are normal; no edema. LUNGS: Respiratory rate normal; clear to auscultation. ABDOMEN: Soft, mild epigastric tenderness, liver spleen not palpable, no masses palpable. PSYCH: Alert and oriented x3; mood and affect normal. MUSCULOSKELETAL:No Clubbing/cyanosis;muscles-grossly intact. Dressing over right hip incision site OA. NEUROLOGICAL: Cranial nerves grossly intact; no facial asymmetry, power and sensation grossly intact. LYMPHATICS: No lymph nodes palpable in the axilla and neck INVESTIGATIONS, reviewed in the clinical context: September 14, 2023: White count 7.8 hemoglobin 12.6 platelets 184 potassium 4.3 BUN 29.9 creatinine 1.1 Assessment and plan: -Right total hip arthroplasty IV cefazolin for infection prophylaxis. DVT prophylaxis per Ortho -Immanuel-en-Y gastric bypass surgery about 18 years ago -Hyperlipidemia Lipitor 40 mg -Diabetes mellitus type 2 Follow Accu-Cheks ascites). Trulicity. -Hypothyroid Synthroid 200 g a day -Essential hypertension Cozaar -, amlodipine-hold. Hold hydrochlorothiazide -Urinary stress incontinence Detrol -Depression/anxiety otherwise specified Wellbutrin XL. -Morbid obesity BMI 45.4. Prior history of gastric bypass over 18 years ago. Weight loss measures. -Full code Care was discussed with the patient. Questions answered Thank Dr. Jin Past Medical History Past Medical History: Coronary Artery Disease (CAD), Diabetes Mellitus, Eye Disorder, GERD/Reflux, GI Bleed, Hyperlipidemia, Hypertension, Osteoarthritis (OA), Renal Disease, Thyroid Disorder Additional Past Medical History / Comment(s): Possible hiatal hernia, diverticulitis or arterial bleed /lower GI bleed, gastric stricture/dysphagia w/ dilation, colon polyp, NIDDM type II-, GI bleed in "old stomach" (hx gastric bypass, GI bleed R/T stomach that is not used). HAS ONLY LEFT KIDNEY-other kidney did not develop and removed, starting of glaucoma R eye. History of Any Multi-Drug Resistant Organisms: None Reported Past Surgical History: Adenoidectomy, Bariatric Surgery, Breast Surgery, Hysterectomy, Joint Replacement, Tonsillectomy Additional Past Surgical History / Comment(s): R nephrectomy(congenital defect)/ureterectomy, thyroidectomy, Immanuel en Y gastric bypass EGD with dilation, colonoscopy, hysteroscopy, D&C x2, Rt breast benign biopsy; colon resection 06/17/2020 d/t diverticulitis; left knee s/x 12/11/22, ant. TRH 09/25/23 Past Anesthesia/Blood Transfusion Reactions: Previous Problems w/ Anesthesia, Motion Sickness, Postoperative Nausea & Vomiting (PONV) Additional Past Anesthesia/Blood Transfusion Reaction / Comm: Hard time awakening from anesthesia-" TAKES LONGER TO WAKE UP" , nausea. Pt's sister PONV and slow to wake. Past Psychological History: Anxiety Additional Psychological History / Comment(s): Pt resides with spouse. No device. Smoking Status: Former smoker Past Alcohol Use History: None Reported Additional Past Alcohol Use History / Comment(s): Pt was a light smoker from 1973 until 1984-3 cigarettes a day. Past Drug Use History: None Reported Additional Drug Use History / Comment(s): occ CBD oil, pt aware not to use today - Past Family History Father Family Medical History: Cancer Additional Family Medical History / Comment(s): Lung cancer. Mother Family Medical History: Cancer Additional Family Medical History / Comment(s): Breast cancer. Sister(s) Family Medical History: Cancer Additional Family Medical History / Comment(s): 2 SISTERS HAD BREAST CANCER, 1 HAS BLADDER CANCER. Brother(s) Family Medical History: Cancer Additional Family Medical History / Comment(s): He had a GA at the age of 50yrs. Lung cancer. Medications and Allergies Home Medications Medication Instructions Recorded Confirmed Type buPROPion XL [Wellbutrin XL] 300 mg PO QAM 07/29/18 09/25/23 History Levothyroxine Sodium [Synthroid] 200 mcg PO QAM 04/28/20 09/25/23 History Atorvastatin [Lipitor] 40 mg PO HS 03/09/21 09/25/23 History Cetirizine HCl [Zyrtec] 10 mg PO DAILY PRN 12/07/22 09/25/23 History Dulaglutide [Trulicity] 0.75 mg SQ MO 12/07/22 09/25/23 History Sucralfate [Carafate] 1 gm PO BID 12/07/22 09/25/23 History Losartan [Cozaar] 100 mg PO QAM 12/15/22 09/25/23 History amLODIPine [Norvasc] 5 mg PO QAM 07/31/23 09/25/23 History hydroCHLOROthiazide 12.5 mg PO QAM 07/31/23 09/25/23 History Tolterodine [Detrol] 2 mg PO DAILY PRN 09/20/23 09/25/23 History HYDROcodone/APAP 7.5-325MG [[place] 1 - 2 tab PO Q6H PRN #32 tab 09/25/23 Rx 7.5-325] Sennosides [Senokot] 2 tab PO DAILY PRN #60 tablet 09/25/23 Rx Allergies Allergy/AdvReac Type Severity Reaction Status Date / Time aspirin Allergy bleeding Verified 09/25/23 10:07 prednisone Allergy Rash/Hives/ Verified 09/25/23 10:07 swelling Physical Exam Vitals: Vital Signs Temp Pulse Pulse Resp BP Pulse Ox 09/25/23 16:04 97.6 F 70 18 112/69 100 09/25/23 15:00 75 16 116/78 99 09/25/23 14:45 72 16 117/56 98 09/25/23 14:30 68 16 116/52 97 09/25/23 14:15 63 16 110/54 96 09/25/23 14:00 65 16 96/58 97 09/25/23 13:45 66 16 90/62 97 09/25/23 13:30 66 16 90/64 97 09/25/23 13:17 97.5 F L 67 16 95/60 97 09/25/23 11:00 81 16 164/71 98 09/25/23 10:50 73 16 138/71 100 09/25/23 10:30 97.4 F L 72 16 168/74 97 Intake and Output 09/25/23 09/25/23 09/25/23 06:59 14:59 22:59 Intake Total 1051 200 Output Total 350 Balance 701 200 Intake: IV 1051 200 Output: Estimated Blood Loss 350 Other: Voiding Method Bedpan # Voids 1 Weight 118.1 kg 118.1 kg Results Labs: Abnormal Lab Results - Last 24 Hours (Table) 09/25/23 09/25/23 09/25/23 Range/Units 10:32 15:02 16:51 POC Glucose (mg/dL) 121 H 138 H 113 H (70-110) mg/dL
[2023-09-25] MEDS: INSULIN ASPART (NovoLOG) 100 UNIT/ML VIAL SQ SCH (17:36)
[2023-09-25 20:29] LABS: Glucose,Whole Blood 182 mg/dL (70-110)
[2023-09-25] MEDS: ATORVASTATIN 40 MG TAB PO SCH (21:13)
[2023-09-25] MEDS: SENNOSIDES-DOCUSATE SODIUM 1 EACH TAB PO SCH (21:13)
[2023-09-25] MEDS: ENOXAPARIN 40 MG/0.4 ML SYRINGE SQ SCH (23:27)
[2023-09-25] MEDS: SUCRALFATE 1 GM TAB PO SCH (23:27)
[2023-09-26 05:36] LABS: Glucose,Whole Blood 139 mg/dL (70-110)
[2023-09-26] MEDS: HYDROcodone/APAP 7.5-325MG 1 EACH TAB PO PRN (06:46)
[2023-09-26 07:51] VITALS: BP 101/60; PULSE 80; RESP 16; TEMP 98.1
[2023-09-26] MEDS: LEVOTHYROXINE 100 MCG TAB PO SCH (08:32)
[2023-09-26] MEDS: buPROPion XL 300 MG TAB.ER.24H PO SCH (08:33)
[2023-09-26] MEDS: LOSARTAN 50 MG TAB PO SCH (08:33)
[2023-09-26 08:44] LABS: Basophils # (A) 0.04 X 10*3/uL (0.00-0.10); Basophils % (A) 0.4 %; Eosinophils # (A) 0.15 X 10*3/uL (0.04-0.35); Eosinophils % (A) 1.4 %; HGB 9.7 g/dL (12.0-15.0); Lymphocytes # (A) 1.14 X 10*3/uL (0.90-5.00); Lymphocytes % (A) 10.9 %; MCH 26.1 pg (27.0-32.0); MCHC 31.3 g/dL (32.0-37.0); MCV 83.3 FL (80.0-97.0); Mean Platelet Volume 11.9 FL (9.5-12.2); Monocytes # (A) 0.92 X 10*3/uL (0.20-1.00); Monocytes % (A) 8.8 %; NRBC Per 100 WBC 0 X 10*3/uL (0.00-0.01); Platelet Count 129 X 10*3/uL (140-440); RBC 3.72 X 10*6/uL (4.10-5.20); RDW 17.2 % (11.5-14.5)
--- NOTE | 2023-09-26 10:36 | P.DS ---
Providers Expected date of discharge: 09/26/23 Attending physician: Yanick Jin Consults: 09/25/23 10:59 Consult Physician Routine Consulting Provider: Conor Renteria Consult Reason/Comments: medical management. anticoagulation. Hx of GI bleed. Do you want consulting provider notified?: Yes Primary care physician: Stephy Harris - Discharge Diagnosis(es) (1) Osteoarthritis of right hip Current Visit: Yes Status: Acute (2) S/P total hip arthroplasty Current Visit: Yes Status: Acute Hospital Course: This is a 68-year-old female with known history of degenerative arthritis of the right hip. The patient presented for evaluation as an outpatient. After discussion and consideration patient elects to proceed with total hip arthroplasty. The patient is seen preoperatively by Dr. Jin and medically cleared for surgery by their primary care physician. Patient is admitted to [facility] on 09/25/2023 for total hip arthroplasty. The procedure is performed without complication or sequelae. The patient is doing well postoperatively. Labs and vital signs are stable on day of discharge. On day of discharge patient's hip incision is healing well. There is minimal erythema. There is no drainage noted at this time. There is minimal soft tissue swelling to the hip and thigh. Patient has full foot and ankle motion without difficulty or pain. Calf is soft and nontender to palpation. Neurovascular status to the right lower extremity is intact. Patient is discharged home in good condition. Please see med rec for accurate list of home medications. Plan - Discharge Summary Discharge Rx Participant: No New Discharge Prescriptions: New HYDROcodone/APAP 7.5-325MG [[place] 7.5-325] 1 - 2 tab PO Q6H PRN #32 tab PRN Reason: Pain Sennosides [Senokot] 2 tab PO DAILY PRN #60 tablet PRN Reason: Constipation No Action buPROPion XL [Wellbutrin XL] 300 mg PO QAM Levothyroxine Sodium [Synthroid] 200 mcg PO QAM Atorvastatin [Lipitor] 40 mg PO HS Cetirizine HCl [Zyrtec] 10 mg PO DAILY PRN PRN Reason: Allergy Symptoms Sucralfate [Carafate] 1 gm PO BID Tolterodine [Detrol] 2 mg PO DAILY PRN PRN Reason: urinary symptoms Dulaglutide [Trulicity] 0.75 mg SQ MO Losartan [Cozaar] 100 mg PO QAM hydroCHLOROthiazide 12.5 mg PO QAM amLODIPine [Norvasc] 5 mg PO QAM Discharge Medication List buPROPion XL [Wellbutrin XL] 300 mg PO QAM 07/29/18 [History] Levothyroxine Sodium [Synthroid] 200 mcg PO QAM 04/28/20 [History] Atorvastatin [Lipitor] 40 mg PO HS 03/09/21 [History] Cetirizine HCl [Zyrtec] 10 mg PO DAILY PRN 12/07/22 [History] Dulaglutide [Trulicity] 0.75 mg SQ MO 12/07/22 [History] Sucralfate [Carafate] 1 gm PO BID 12/07/22 [History] Losartan [Cozaar] 100 mg PO QAM 12/15/22 [History] amLODIPine [Norvasc] 5 mg PO QAM 07/31/23 [History] hydroCHLOROthiazide 12.5 mg PO QAM 07/31/23 [History] Tolterodine [Detrol] 2 mg PO DAILY PRN 09/20/23 [History] HYDROcodone/APAP 7.5-325MG [[place] 7.5-325] 1 - 2 tab PO Q6H PRN #32 tab 09/25/23 [Rx] Sennosides [Senokot] 2 tab PO DAILY PRN #60 tablet 09/25/23 [Rx] Follow up Appointment(s)/Referral(s): [facility]] - 1 Week (Agency will call within 24-48 hours after discharge to schedule a visit) Yanick Jin DO [Doctor of Osteopathic Medicine] - 10/08/23 1:30 pm Activity/Diet/Wound Care/Special Instructions: Weightbearing as tolerated with walker. Leave Prevena wound vac intact x 1 week. Dressing can be removed in the office in one week. May shower with initial dressing intact and after removal. If dressing become saturated, please remove. Anticoagulation per internal medicine. Recommend use of compression stockings daily until follow up to help prevent swelling and blood clots. May remove at night before sleeping. Please follow-up with [facility] in 1 week and call with any questions or concerns, . Discharge Disposition: HOME WITH HOME HEALTH SERVICES
[2023-09-26 11:40] LABS: Glucose,Whole Blood 147 mg/dL (70-110)
--- NOTE | 2023-09-26 21:55 | P.PN ---
Progress Note - Text Progress Note Date: 09/26/23 - Chief Complaint Right hip surgery - History of Present Illness Very pleasant 68-year-old patient who follows with Dr. Stephy Harris. Chronic stable medical conditions include , GERD, hypertension, hyperlipidemia, hypothyroid, hiatal hernia, gastric stricture with dysphagia with dilatation, unilateral left kidney. gastric bypass about 18 years ago. right nephrectomy for congenital defect. Diverticular bleeds Patient now has undergone right total hip arthroplasty. Pain controlled. No nausea vomiting. Did tolerate his supper. No cardiac symptoms. Resting in bed. September 25: Doing better. Tolerating diet. No nausea vomiting. Had a lengthy discussion with patient regarding anticoagulation. She has had EGD colonoscopy in the past by Dr. Mariscal. Nothing was really found. Risk-benefit was discussed. Subcu Lovenox she is agreed to give it for 2 weeks. She will also try to keep active. Questions answered Patient to resume amlodipine when systolic blood pressure in the morning above 140. Medications reviewed Social history: No smoking or alcohol. . Physical examination: VITAL SIGNS: 98.1, 80, 16, 101/60, 97% room air GENERAL: BMI 45.4, reclining bed awake comfortable EYES: Pupils equal. Conjunctiva pale HEENT: External appearance of nose and ears normal, oral cavity grossly normal. NECK: JVD not raised; masses not palpable. HEART: First and second heart sounds are normal; no edema. LUNGS: Respiratory rate normal; clear to auscultation. ABDOMEN: Soft, mild epigastric tenderness, liver spleen not palpable, no masses palpable. PSYCH: Alert and oriented x3; mood and affect normal. MUSCULOSKELETAL:No Clubbing/cyanosis;muscles-grossly intact. Dressing over right hip incision site OA. INVESTIGATIONS, reviewed in the clinical context: September 25: White count 10.5 hemoglobin 9.7 platelets 129 Previous labs September 14, 2023: White count 7.8 hemoglobin 12.6 platelets 184 potassium 4.3 BUN 29.9 creatinine 1.1 Assessment and plan: -Right total hip arthroplasty IV cefazolin for infection prophylaxis. DVT prophylaxis per Ortho -Immanuel-en-Y gastric bypass surgery about 18 years ago -Acute postprocedure blood loss anemia expected from surgery Ferrous sulfate added -Hyperlipidemia Lipitor 40 mg -Diabetes mellitus type 2 Follow Accu-Cheks ascites). Trulicity. -Hypothyroid Synthroid 200 g a day -Essential hypertension Cozaar -,hydrochlorothiazide -Urinary stress incontinence Detrol -Depression/anxiety otherwise specified Wellbutrin XL. -Morbid obesity BMI 45.4. Prior history of gastric bypass over 18 years ago. Weight loss measures. -Full code Patient to resume amlodipine when systolic blood pressure above 140 on daily blood pressure checks in the morning Thank Dr. Jin Past Medical History Past Medical History: Coronary Artery Disease (CAD), Diabetes Mellitus, Eye Disorder, GERD/Reflux, GI Bleed, Hyperlipidemia, Hypertension, Osteoarthritis (OA), Renal Disease, Thyroid Disorder Additional Past Medical History / Comment(s): Possible hiatal hernia, diverticulitis or arterial bleed /lower GI bleed, gastric stricture/dysphagia w/ dilation, colon polyp, NIDDM type II-, GI bleed in "old stomach" (hx gastric bypass, GI bleed R/T stomach that is not used). HAS ONLY LEFT KIDNEY-other kidney did not develop and removed, starting of glaucoma R eye. History of Any Multi-Drug Resistant Organisms: None Reported Past Surgical History: Adenoidectomy, Bariatric Surgery, Breast Surgery, Hysterectomy, Joint Replacement, Tonsillectomy Additional Past Surgical History / Comment(s): R nephrectomy(congenital defect)/ureterectomy, thyroidectomy, Immanuel en Y gastric bypass EGD with dilation, colonoscopy, hysteroscopy, D&C x2, Rt breast benign biopsy; colon resection 06/17/2020 d/t diverticulitis; left knee s/x 12/11/22, ant. TRH 09/25/23 Past Anesthesia/Blood Transfusion Reactions: Previous Problems w/ Anesthesia, Motion Sickness, Postoperative Nausea & Vomiting (PONV) Additional Past Anesthesia/Blood Transfusion Reaction / Comm: Hard time awakening from anesthesia-" TAKES LONGER TO WAKE UP" , nausea. Pt's sister PONV and slow to wake. Past Psychological History: Anxiety Additional Psychological History / Comment(s): Pt resides with spouse. No device. Smoking Status: Former smoker Past Alcohol Use History: None Reported Additional Past Alcohol Use History / Comment(s): Pt was a light smoker from 1973 until 1984-3 cigarettes a day. Past Drug Use History: None Reported Additional Drug Use History / Comment(s): occ CBD oil, pt aware not to use today
== END 2023-09-26 14:01 | disposition home health service (06) ==
LOC: OR 09:36 → 4SSUR 13:17 → OR 09-26 14:01
PROVIDERS: ATTEND Orthopaedic Surgery
DX: M16.11 Unilateral primary osteoarthritis, right hip (principal); G89.18 Other acute postprocedural pain; E11.69 Type 2 diabetes mellitus with other specified complication; E78.5 Hyperlipidemia, unspecified; I12.9 Hypertensive chronic kidney disease with stage 1 through stage 4 chronic kidney disease, or unspecified chronic kidney disease; E11.22 Type 2 diabetes mellitus with diabetic chronic kidney disease; N18.9 Chronic kidney disease, unspecified; E03.9 Hypothyroidism, unspecified; K21.9 Gastro-esophageal reflux disease without esophagitis; Z79.85 Long-term (current) use of injectable non-insulin antidiabetic drugs; D62 Acute posthemorrhagic anemia; Z98.84 Bariatric surgery status; N39.3 Stress incontinence (female) (male); F41.8 Other specified anxiety disorders; I25.10 Atherosclerotic heart disease of native coronary artery without angina pectoris; F17.210 Nicotine dependence, cigarettes, uncomplicated; Z88.6 Allergy status to analgesic agent; Z88.8 Allergy status to other drugs, medicaments and biological substances; Z79.01 Long term (current) use of anticoagulants; Z79.890 Hormone replacement therapy; Z79.899 Other long term (current) drug therapy
CPT/HCPCS: 97162; 97166; 64447; 85025; 73501; 27130; C1776; J0690 ×3; J2405; J1650; J2795

== ENCOUNTER → 2024-02-20 | Outpatient (CLI) | payer MEDICARE ==
[2024-02-20 15:13] LABS: INR 0.9 (<1.2); Partial Thromboplastin Time 24.6 sec (22.0-30.0); Prothrombin Time 9.9 sec (10.0-12.5)
[2024-02-20 18:14] LABS: HGB 13.9 g/dL (12.0-15.0); MCH 26.3 pg (27.0-32.0); MCHC 31.6 g/dL (32.0-37.0); MCV 83.2 FL (80.0-97.0); Mean Platelet Volume 11.6 FL (9.5-12.2); NRBC Per 100 WBC 0 X 10*3/uL (0.00-0.01); Platelet Count 201 X 10*3/uL (140-440); RBC 5.29 X 10*6/uL (4.10-5.20); WBC 8.19 X 10*3/uL (4.50-10.00)
[2024-02-20 19:03] LABS: Prealbumin 19.4 mg/dL (18.0-42.0)
[2024-02-20 19:04] LABS: % Iron Saturation 8.89 (12.00-45.00); BUN/Creat Ratio 29.64 Ratio (12.00-20.00); Blood Urea Nitrogen 32.6 mg/dL (9.0-27.0); Carbon Dioxide 23.8 mmol/L (21.6-31.8); Chloride 104 mmol/L (96-109); Chol/HDL Ratio 2.94 Ratio; Glucose 111 mg/dL (70-110); Iron 41 UG/DL (50-170); LDL Cholesterol,Calculated 76.7 mg/dL (0.0-131.0); Magnesium 2.1 mg/dL (1.5-2.4); Phosphorus 4.3 mg/dL (2.4-5.1); Potassium 4.1 mmol/L (3.5-5.5); Sodium 141 mmol/L (135-145); Total Iron Binding Capacity 461 UG/DL (228-460)
[2024-02-20 19:05] LABS: ALT 17 U/L (8-44); AST 22 U/L (13-35); Albumin 4.1 g/dL (3.8-4.9); Albumin/Globulin Ratio 1.41 Ratio (1.60-3.17); Alkaline Phosphatase 122 U/L (41-126); Calcium 9.3 mg/dL (8.7-10.3); Ferritin 25.1 ng/mL (10.0-291.0); Globulin 2.9 g/dL (1.6-3.3); Total Bilirubin 0.4 mg/dL (0.3-1.2)
[2024-02-21 09:21] LABS: Zinc, Serum 71 ug/dL (60-130)
[2024-02-22 05:36] LABS: Vitamin A 62 ug/dL (38-106)
[2024-02-22 09:15] LABS: Vit B1(Thiamine) 88 ug/L (38-122)
== END | disposition home or self-care (01) ==
LOC: LABWHC1 13:55
PROVIDERS: ATTEND Surgery Plastic and Reconstructive Surgery
DX: E89.1 Postprocedural hypoinsulinemia (principal); D50.8 Other iron deficiency anemias; K91.2 Postsurgical malabsorption, not elsewhere classified; E44.0 Moderate protein-calorie malnutrition; E44.1 Mild protein-calorie malnutrition; E45 Retarded development following protein-calorie malnutrition; E55.9 Vitamin D deficiency, unspecified; K74.1 Hepatic sclerosis; N19 Unspecified kidney failure; T56.894A Toxic effect of other metals, undetermined, initial encounter; K50.90 Crohn's disease, unspecified, without complications
CPT/HCPCS: 36415; 80053; 80061; 82306; 82525; 82607; 82728; 82746; 83036; 83540; 83550; 83735; 83970; 84100; 84134; 84255; 84425; 84443; 84590; 84630; 85027; 85610; 85730

== ENCOUNTER → 2024-02-20 | Outpatient (CLI) | payer MEDICARE ==
[2024-02-20 13:17] VITALS: BP 147/95; PULSE 88; RESP 16; TEMP 98.1; BMI 44.9
--- NOTE | 2024-02-20 13:47 | P.BASOAP ---
Subjective Progress Note Date: 02/20/24 No more bleeding. No belly pain. Has pain at the epigastirum. She is doing carafate twice per day. Epigastric pain is occassional. Not triggered with foods. Starts in the morning. Drinking liquids makes it better. She has gained weight 231 to 256 pounds. She has hip done and knee done. She is on Trulicity. Protect kidney. 60 grams of protein is advised. She is due for yearly blood work. Other options for iron includes beef liver weekly. Kale and iron advised. Objective - Vital Signs Vital signs: Vital Signs Temp 98.1 F 02/20/24 13:06 Pulse 88 02/20/24 13:06 Resp 16 02/20/24 13:06 BP 147/95 02/20/24 13:06 Pulse Ox FiO2 Intake & Output 02/19/24 02/20/24 02/20/24 18:59 06:59 18:59 Weight 116.12 kg Assessment/Plan Plan: Date: 02/20/24 Initial Weight: 155.038 kg Initial BMI: 60.0 Current Weight: 116.12 kg Current BMI: 44.9 Type of Surgery: Total Volume in Band: Previous Volume: Volume Removed: Volume Added: Band Size:
== END ==
LOC: BARWHC3 12:45
PROVIDERS: ATTEND Surgery Plastic and Reconstructive Surgery
DX: E66.01 Morbid (severe) obesity due to excess calories (principal); Z68.42 Body mass index [BMI] 45.0-49.9, adult; Z88.6 Allergy status to analgesic agent; Z88.8 Allergy status to other drugs, medicaments and biological substances; Z87.891 Personal history of nicotine dependence
CPT/HCPCS: 99211

== ENCOUNTER → 2024-06-11 | Outpatient (CLI) | payer MEDICARE ==
--- NOTE | 2024-06-12 09:10 | BD ---
EXAMINATION TYPE: Axial Bone Density DATE OF EXAM: 06/11/2024 CLINICAL HISTORY: 69 years old Female. ICD-10 CODE: M81.0 AGE-RELATED OSTEOPOROSIS W/O CURRENT PATHO LOGY , Additional History: Height: 62 Weight: 254 FRAX RISK QUESTIONS: Family History (Parent hip fracture): no History of Fracture in Adulthood: no Secondary Osteoporosis: no RISK FACTORS HISTORY OF: Surgery to Hip(right): yes When: 09/23 MEDICATIONS: Thyroid Medications: yes Which medication: Levothyroxine How Lon+ years Osteoporosis Medications: no EXAM MEASUREMENTS: Bone mineral densitometry was performed using the [employer] System. Bone mineral density as measured about the Lumbar spine is: ----- L1-L4(G/cm2): 1.476 T Score Values are as follows: ----- L1: 0.5 ----- L2: 3.0 ----- L3: 4.5 ----- L4: 1.2 ----- L1-L4: 2.5 Z Score Values are as follows: ----- L1: 0.9 ----- L2: 3.5 ----- L3: 5.0 ----- L4: 1.7 ----- L1-L4: 2.9 Bone mineral density has: 0.0% since study of: 01/11/2021 Bone mineral density about the L hip (g/cm2): 0.979 T Score values are as follows: -----L Neck: -1.0 -----L Total: -0.2 Z Score values are as follows: -----L Neck: -0.2 -----L Total: 0.2 Bone mineral density has: Decreased -0.3% since study of: 01/11/2021 FRAX%s: The graph provided illustrates a 7.1% chance for a major osteoporotic fx and a 0.5% chance fo r the hips probability for fx in 10 years time. IMPRESSION: Normal (Values between +1 and -1 indicate normal bone mass). Consider repeating this study in 5 year s or sooner if there is some new clinical indication. NOTE: T-SCORE=SD OF THE YOUNG ADULT MEAN. [facility], , 06/12/2024 9:08 AM
== END | disposition home or self-care (01) ==
LOC: RADBDWWP 14:44
PROVIDERS: ATTEND Family Medicine
DX: M81.0 Age-related osteoporosis without current pathological fracture (principal); M85.852 Other specified disorders of bone density and structure, left thigh
CPT/HCPCS: 77080